=== PATIENT | female | born 1955 | race Caucasian/White ===

== ENCOUNTER 2017-01-19 22:05 | Inpatient (IN) | payer MEDICARE, MEDICAID ==
--- NOTE | 2017-01-19 22:28 | EDM.PDOC ---
ED HPI GENERAL MEDICAL PROBLEM - General Chief Complaint: Gastrointestinal Problem Stated Complaint: [facility] Time Seen by Provider: 01/19/17 22:13 Source of Information: Reports: Patient, EMS History Limitations: Reports: Other (Patient is schizophrenic and is a poor historian) - History of Present Illness INITIAL COMMENTS - FREE TEXT/NARRATIVE: This is a 61-year-old female. Apparently the family called the ambulance services evening because the patient vomited up some brown stuff. When the ambulance crew arrived there was some dried brown stuff but they did not bring it to the ER for testing. The patient states she vomited up some brown stuff but we cannot be certain whether it is blood or not. Patient states her stomach has been bothering her today but she generally says it's her entire stomach not necessary in the upper part of her abdomen. She cannot really add to the history. She denies being short of breath and denies coughing but really can't give any other history at this time. Abdominal Pain Score (Numeric/FACES): 8 - Related Data Allergies Allergy/AdvReac Type Severity Reaction Status Date / Time haloperidol AdvReac Seizures Verified 01/19/17 22:12 trifluoperazine HCl AdvReac Seizures Verified 01/19/17 22:12 [From Stelazine] Home Meds: Home Meds Atenolol 25 mg PO DAILY 08/15/14 [History] Ibuprofen 600 mg PO BEDTIME PRN 08/15/14 [History] LORazepam 0.5 mg PO TID 08/15/14 [History] Levothyroxine [Synthroid] 88 mcg PO DAILY 08/15/14 [History] SUMAtriptan [Imitrex] 50 mg PO ONCALL PRN 08/15/14 [History] cloZAPine [Clozapine] 350 mg PO BEDTIME 08/15/14 [History] cloZAPine [Clozaril] 200 mg PO BID 08/15/14 [History] Simvastatin [Zocor] 10 mg PO DAILY 04/13/16 [History] amLODIPine Besylate [Norvasc] 2.5 mg PO DAILY 04/13/16 [History] Past Medical History HEENT History: Reports: Other (See Below) Other HEENT History: impacted cerumen Cardiovascular History: Reports: Hypertension Genitourinary History: Reports: Other (See Below) Other Genitourinary History: UTI Psychiatric History: Reports: Anxiety, Schizophrenia Other Psychiatric History: mother states patient hears voices and talks to them at times Dermatologic History: Reports: Psoriasis - Past Surgical History HEENT Surgical History: Reports: None Cardiovascular Surgical History: Reports: None Social & Family History - Family History Family Medical History: Noncontributory - Tobacco Use Smoking Status *Q: Never Smoker Used Tobacco, but Quit: Yes Month Tobacco Last Used: 7 years ago Second Hand Smoke Exposure: No - Caffeine Use Caffeine Use: Reports: Soda - Alcohol Use Days Per Week of Alcohol Use: 0 - Recreational Drug Use Recreational Drug Use: No ED ROS GENERAL - Review of Systems Review Of Systems: See Below Constitutional: Reports: Weakness, Other (This is the best that I can get on her review of systems due to her schizophrenia). Denies: Fever HEENT: Reports: No Symptoms Respiratory: Denies: Shortness of Breath, Cough Cardiovascular: Denies: Chest Pain GI/Abdominal: Reports: Abdominal Pain : Reports: Other (Unknown she denies urinary symptoms) Musculoskeletal: Reports: Other (Patient essentially denies any extremity problems but this is still unknown) Skin: Reports: Other (Unknown if there is any changes or concerns) Neurological: Reports: Confusion Psychiatric: Reports: Other (Patient is schizophrenic) Hematologic/Lymphatic: Reports: Other (Unknown) ED EXAM, GI/ABD - Physical Exam Exam: See Below Exam Limited By: Altered Mental Status General Appearance: Alert, WD/WN, No Apparent Distress, Other (Patient appears to be unkempt) Eyes: Bilateral: Normal Appearance Ears: Normal External Exam Nose: Normal Inspection Throat/Mouth: Normal Voice, No Airway Compromise, Other (Teeth have advanced dental caries, her lips do appear to be pale but I'm not certain if that is a change) Head: Normocephalic Neck: Supple Respiratory/Chest: No Respiratory Distress, Lungs Clear, Normal Breath Sounds Cardiovascular: Regular Rate, Rhythm, No Murmur GI/Abdominal Exam: Soft, Other (The abdomen appears to be distended, the patient complains of soreness all over her abdomen not necessarily just in the upper abdomen but she is soft though distended there is no guarding and there is no rebound or rigidity noted and she does have bowel sounds but they are very quiet and more high pitched) Back Exam: Other (Not able to assess her back at this time) Extremities: Normal Inspection, No Pedal Edema, Other (She will move her extremities for me) Neurological: Alert, Other (She has a decreased cognition but she is able to answer simple questions, she is oriented to place only) Psychiatric: Flat Affect Skin Exam: Warm, Dry Course - Vital Signs Last Recorded V/S: Last Vital Signs Temp 98.1 F 01/19/17 22:08 Pulse 91 01/19/17 22:08 Resp 18 01/19/17 22:08 BP 94/56 L 01/19/17 22:08 Pulse Ox 88 L 01/19/17 22:08 - Orders/Labs/Meds Orders: Active Orders 24 hr Category Date Time Status Abdomen 1V Flat [CR] Stat Exams 01/19/17 23:11 Taken Abdomen Pelvis wo Cont [CT] Stat Exams 01/19/17 23:57 Taken Sodium Chloride 0.9% [Normal Saline] 1,000 ml Med 01/19/17 22:45 Active IV ASDIRECTED NG [Nasogastric Orogastric Tube Insertion] [OM.PC] Oth 01/20/17 01:57 Ordered Routine Medication Orders Sodium Chloride (Normal Saline) 1,000 mls @ 500 mls/hr IV ASDIRECTED NAEL Last Admin: 01/19/17 22:38 Dose: 500 mls/hr Labs: Laboratory Tests 01/19/17 01/19/17 01/19/17 Range/Units 22:45 22:45 23:10 WBC 10.00 (3.98-10.04) K/mm3 RBC 3.27 L (3.98-5.22) M/mm3 Hgb 9.2 L (11.2-15.7) gm/L Hct 27.2 L (34.1-44.9) % MCV 83.2 (79.4-94.8) fl MCH 28.1 (25.6-32.2) pg MCHC 33.8 (32.2-35.5) g/dl RDW Std Deviation 43.4 (36.4-46.3) fL Plt Count 350 (182-369) K/mm3 MPV 8.6 L (9.4-12.3) fl Neut % (Auto) 73.4 H (34.0-71.1) % Lymph % (Auto) 9.2 L (19.3-51.7) % [place] % (Auto) 16.7 H (4.7-12.5) % Eos % (Auto) 0.2 L (0.7-5.8) Baso % (Auto) 0.1 (0.1-1.2) % Neut # (Auto) 7.34 H (1.56-6.13) K/mm3 Lymph # (Auto) 0.92 L (1.18-3.74) K/mm3 [place] # (Auto) 1.67 H (0.24-0.36) K/mm3 Eos # (Auto) 0.02 L (0.04-0.36) K/mm3 Baso # (Auto) 0.01 (0.01-0.08) K/mm3 Manual Slide Review Abnormal smear Sodium 129 L (136-145) mEq/L Potassium 3.7 (3.5-5.1) mEq/L Chloride 95 L (98-107) mEq/L Carbon Dioxide 25 (21-32) mEq/L Anion Gap 12.7 (5-15) BUN 55 H (7-18) mg/dL Creatinine 2.2 H (0.55-1.02) mg/dL Est Cr Clr Drug Dosing 24.16 mL/min Estimated GFR (MDRD) 23 (>60) mL/min BUN/Creatinine Ratio 25.0 H (14-18) Glucose 121 H (80-115) mg/dL Calcium 7.8 L (8.5-10.1) mg/dL Total Bilirubin 0.3 (0.2-1.0) mg/dL AST 8 L (15-37) U/L ALT 8 L (14-59) U/L Alkaline Phosphatase 50 (46-116) U/L Total Protein 5.0 L (6.4-8.2) g/dl Albumin 2.2 L (3.4-5.0) g/dl Globulin 2.8 gm/dL Albumin/Globulin Ratio 0.8 L (1-2) Urine Color Yellow (Yellow) Urine Appearance Clear (Clear) Urine pH 5.0 (5.0-8.0) Ur Specific [place] 1.025 (1.005-1.030) Urine Protein 1+ H (Negative) Urine Glucose (UA) Negative (Negative) Urine Ketones Negative (Negative) Urine Occult Blood Negative (Negative) Urine Nitrite Negative (Negative) Urine Bilirubin Negative (Negative) Urine Urobilinogen 0.2 (0.2-1.0) Ur Leukocyte Esterase Negative (Negative) Urine RBC Not seen (0-5) /hpf Urine WBC 0-5 (0-5) /hpf Ur Epithelial Cells 0-5 (0-5) /hpf Urine Bacteria Few (FEW) /hpf Hyaline Casts 0-5 (0-5) /lpf Urine Mucus Not seen (FEW) /hpf Meds: Medications Generic Name Dose Route Start Last Admin Trade Name Freq PRN Reason Stop Dose Admin Sodium Chloride 1,000 mls @ 500 mls/hr 01/19/17 22:45 01/19/17 22:38 Normal Saline IV 500 mls/hr ASDIRECTED NAEL Administration Discontinued Medications Generic Name Dose Route Start Last Admin Trade Name Freq PRN Reason Stop Dose Admin Diatrizoate Meglum/Diatrizoate Sod 90 ml 01/20/17 01:05 01/20/17 01:29 Gastrografin 37% PO 01/20/17 01:06 90 ml ONETIME ONE Administration Lidocaine HCl Confirm 01/20/17 02:02 Xylocaine 2% Jelly Administered 01/20/17 02:03 Dose 10 ml .ROUTE .STK-MED ONE Ondansetron HCl 4 mg 01/20/17 00:04 01/20/17 00:13 Zofran IVPUSH 01/20/17 00:05 4 mg ONETIME ONE Administration Pantoprazole Sodium 40 mg 01/19/17 22:29 01/19/17 22:38 Protonix Iv IVPUSH 01/19/17 22:30 40 mg ONETIME ONE Administration - Radiology Interpretation Free Text/Narrative:: KUB shows large dilated small bowel loops - Re-Assessments/Exams Free Text/Narrative Re-Assessment/Exam: 01/19/17 22:28 It should be noted that Hemoccult of the stool was positive for blood. 01/20/17 00:57 Her KUB shows dilated bowel and it appears to be mostly small bowel. She is known to have a history of colitis as well as small bowel obstruction. 01/20/17 02:11 CT scan with contrast showed a high grade small bowel obstruction. I spoke to the family regarding the findings I also spoke to Dr. Barrera who is willing to follow this patient along and Dr. Cummins who was willing to admit the patient. It should be noted that back in March 2016 she had a very similar presentation with a small bowel obstruction that resolved with NG tube decompression. 01/20/17 02:20 I confirmed with the family that the patient is a full code. I wrote bridge orders for Dr. Cummins. Departure - Departure Time of Disposition: 02:12 Disposition: Admitted As Inpatient 66 Condition: Fair Clinical Impression: Small bowel obstruction due to adhesions, Upper GI bleed, Anemia of chronic illness, Renal insufficiency, Dehydration Hypotension Qualifiers: Hypotension type: unspecified hypotension type Qualified Code(s): I95.9 - Hypotension, unspecified Schizophrenia Qualifiers: Schizophrenia type: unspecified Qualified Code(s): F20.9 - Schizophrenia, unspecified - Discharge Information Additional Instructions: I spoke to Dr. Cummins who is willing to admit the patient for further evaluation and treatment, I spoke to Dr. Barrera who is willing to follow the patient along with Dr. Cummins. ED Communication - ED Communication Date/Time Date: 01/20/17 Time Called: 02:14 - Discussed Case With (1) Discussed Case With (1): Admitting Provider Person/s Notified (1): Nadia Cummins (Will admit for evaluation treatment) - My Orders Last 24 Hours: My Active Orders 01/19/17 22:45 Sodium Chloride 0.9% [Normal Saline] 1,000 ml IV ASDIRECTED 01/19/17 23:11 Abdomen 1V Flat [CR] Stat 01/19/17 23:57 Abdomen Pelvis wo Cont [CT] Stat 01/20/17 01:57 NG [Nasogastric Orogastric Tube Insertion] [OM.PC] Routine - Assessment/Plan Last 24 Hours: My Active Orders 01/19/17 22:45 Sodium Chloride 0.9% [Normal Saline] 1,000 ml IV ASDIRECTED 01/19/17 23:11 Abdomen 1V Flat [CR] Stat 01/19/17 23:57 Abdomen Pelvis wo Cont [CT] Stat 01/20/17 01:57 NG [Nasogastric Orogastric Tube Insertion] [OM.PC] Routine
[2017-01-19] MEDS ORDERED: Pantoprazole 40 MG Vial IVPUSH ONE (22:29)
[2017-01-19] MEDS ORDERED: Sodium Chloride 0.9% 1,000 ML IV SCH (22:45)
[2017-01-20] MEDS ORDERED: Ondansetron 4 MG/2 ML SDV IVPUSH ONE (00:04)
[2017-01-20] MEDS ORDERED: Diatrizoate Meglumine/Diatrizoate Sodium 37% 120 ML Bottle PO ONE (01:05)
[2017-01-20] MEDS ORDERED: Lidocaine 2% Jelly 10 ML Urojet ONE (02:02)
[2017-01-20] MEDS ORDERED: Lidocaine 2% Jelly 10 ML Urojet MUCMEM ONE (02:20)
[2017-01-20] MEDS ORDERED: Sodium Chloride 0.9% 1,000 ML IV SCH (03:15)
[2017-01-20] MEDS ORDERED: Pantoprazole 40 MG Vial IVPUSH SCH (06:00)
--- NOTE | 2017-01-20 09:13 | PCM.HP ---
H&P History of Present Illness - General Date of Service: 01/20/17 Admit Problem/Dx: Admission Diagnosis/Problem Admission Diagnosis/Problem Small bowel obstruction Source of Information: Family, Provider History Limitations: Reports: No Limitations - History of Present Illness Initial Comments - Free Text/Narative: 61 year old female admitted with SBO, reported that she had been nauseated and vomited brown material. Denies fever or chills; no reported change in bowel habits, appetite or habits. An NGT was placed in the ED. She additionally complained of abdominal pain in the ED. Currently she denies pain but does admit to abdominal distension. She will be admitted to [facility], a genral surgery consult will be requested. The ED provider briefly discussed the case with general surgery JOB ORDER CLERK. Onset of Symptoms: Reports: Unknown/Unsure Duration of Symptoms: Reports: Hour(s):, Getting Worse Location: Reports: Abdomen Severity: Moderate Improves with: Reports: Other (NGT) Worsens with: Reports: Eating Associated Symptoms: Reports: Malaise, Nausea/Vomiting, Weakness Abdominal Pain Score (Numeric/FACES): 8 - Related Data Allergies/Adverse Reactions: Allergies Allergy/AdvReac Type Severity Reaction Status Date / Time haloperidol AdvReac Seizures Verified 01/20/17 10:43 trifluoperazine HCl AdvReac Seizures Verified 01/20/17 10:43 [From Stelazine] Home Medications: Home Meds Atenolol 25 mg PO DAILY 08/15/14 [History] Ibuprofen 600 mg PO BEDTIME PRN 08/15/14 [History] LORazepam 0.5 mg PO TID PRN 08/15/14 [History] Levothyroxine [Synthroid] 88 mcg PO DAILY 08/15/14 [History] SUMAtriptan [Imitrex] 50 mg PO ONCALL PRN 08/15/14 [History] cloZAPine [Clozapine] 350 mg PO BEDTIME 08/15/14 [History] cloZAPine [Clozaril] 200 mg PO BID 08/15/14 [History] Simvastatin [Zocor] 10 mg PO DAILY 04/13/16 [History] amLODIPine Besylate [Norvasc] 2.5 mg PO DAILY 04/13/16 [History] Past Medical History HEENT History: Reports: Other (See Below) Other HEENT History: impacted cerumen Cardiovascular History: Reports: Hypertension Gastrointestinal History: Reports: Bowel Obstruction, Chronic Constipation, Chronic Diarrhea, GI Bleed Genitourinary History: Reports: Other (See Below) Other Genitourinary History: UTI Psychiatric History: Reports: Anxiety, Schizophrenia Other Psychiatric History: Family states patient hears voices and talks to them at times Endocrine/Metabolic History: Reports: Hypothyroidism Hematologic History: Reports: Anemia Dermatologic History: Reports: Psoriasis - Past Surgical History HEENT Surgical History: Reports: None Cardiovascular Surgical History: Reports: None GI Surgical History: Reports: None Female Surgical History: Reports: None Endocrine Surgical History: Reports: None Social & Family History - Family History Family Medical History: Noncontributory - Tobacco Use Smoking Status *Q: Unknown Ever Smoked Used Tobacco, but Quit: Yes Month Tobacco Last Used: 7 years ago Second Hand Smoke Exposure: No - Caffeine Use Caffeine Use: Reports: Soda - Alcohol Use Days Per Week of Alcohol Use: 0 - Recreational Drug Use Recreational Drug Use: No H&P Review of Systems - Review of Systems: Review Of Systems: See Below General: Reports: Weakness, Decreased Appetite HEENT: Reports: No Symptoms Pulmonary: Reports: No Symptoms Cardiovascular: Reports: No Symptoms Gastrointestinal: Reports: Abdominal Pain, Flatus Genitourinary: Reports: No Symptoms Musculoskeletal: Reports: No Symptoms Skin: Reports: No Symptoms Psychiatric: Reports: No Symptoms Neurological: Reports: No Symptoms Hematologic/Lymphatic: Reports: No Symptoms Immunologic: Reports: No Symptoms Exam - Exam Exam: See Below - Vital Signs Vital Signs: Last Vital Signs Temp 36.7 C 01/20/17 03:06 Pulse 89 01/20/17 03:06 Resp 16 01/20/17 03:06 BP 90/44 L 01/20/17 03:54 Pulse Ox 95 01/20/17 03:06 Weight: 66.996 kg - Exam Quality Assessment: DVT Prophylaxis General: Alert, Oriented, Cooperative HEENT: Conjunctiva Clear, Nares Patent, Normal Nasal Septum, Pupils Equal, Pupils Reactive Neck: Supple, Trachea Midline Lungs: Normal Respiratory Effort Cardiovascular: Regular Rate, Regular Rhythm GI/Abdominal Exam: Soft, Distended, Guarding (no), Rigid (no), Rebound (no), Tender, Abnormal Bowel Sounds (Female) Exam: Deferred Rectal (Female) Exam: Deferred Back Exam: Normal Inspection Extremities: Normal Inspection Skin: Warm Neurological: Cranial Nerves Intact Neuro Extensive - Mental Status: Alert Neuro Extensive - Motor, Sensory, Reflexes: CN II-XII Intact Psychiatric: Alert - Patient Data Result Diagrams: 01/19/17 22:45 01/19/17 22:45 *Q Meaningful Use (ADM) - VTE *Q VTE Criteria *Q: - Stroke *Q Stroke Criteria *Q: - AMI *Q AMI Criteria *Q: - Problem List (1) Dehydration SNOMED Code(s): 99283144 ICD Code: E86.0 - DEHYDRATION Status: Acute Current Visit: Yes (2) Schizophrenia SNOMED Code(s): 40070365 ICD Code: F20.9 - SCHIZOPHRENIA, UNSPECIFIED Status: Acute Current Visit : Yes Qualifiers: Schizophrenia type: unspecified Qualified Code(s): F20.9 - Schizophrenia, unspecified (3) Small bowel obstruction due to adhesions SNOMED Code(s): 126878076 ICD Code: K56.5 - INTESTINAL ADHESIONS W OBST (POSTPROCEDURAL) (POSTINFECTION ) Status: Acute Current Visit: Yes (4) Pneumonia SNOMED Code(s): 984376545 ICD Code: J18.9 - PNEUMONIA, UNSPECIFIED ORGANISM Status: Acute Current Visit: Yes Problem List Initiated/Reviewed/Updated: Yes Orders Last 24hrs: Active Orders 24 hr Category Date Time Status Admission Status [Patient Status] [ADT] Routine ADT 01/20/17 02:43 Active Activity as Tolerated [RC] .Routine Care 01/20/17 03:18 Active Insert Urinary Catheter [OM.PC] ONETIME Care 01/19/17 23:00 Ordered Intake and Output Strict [RC] 04,16 Care 01/20/17 03:12 Active NG [Gastrointestinal Tube Mgmt] [RC] ASDIRECTED Care 01/20/17 03:15 Active NPO Now [Nothing per Oral Now Diet] [DIET] Diet 01/20/17 Breakfast Active Pantoprazole [ProTONIX IV] Med 01/20/17 06:00 Active 40 mg IVPUSH ACBRK Sodium Chloride 0.9% [Normal Saline] 1,000 ml Med 01/20/17 03:15 Active IV ASDIRECTED Code Status [Resuscitation Status] Routine Resus Stat 01/20/17 03:14 Ordered Medication Orders Sodium Chloride (Normal Saline) 1,000 mls @ 125 mls/hr IV ASDIRECTED NAEL Last Admin: 01/20/17 03:52 Dose: 125 mls/hr Pantoprazole Sodium (Protonix Iv) 40 mg IVPUSH ACBRK [facility] Last Admin: 01/20/17 06:42 Dose: 40 mg Assessment/Plan Comment:: Impression: SBO, previous episode March 2016 Hemoccult positve stool Possible past medical history of Colitis Query Aspiration PNA History of Schizophrenia Plan: IVF Electrolyte replacement Continue NGT. Clamp as needed for anti-psychotic meds Home meds as appropriate] Daily Labs Analgesics Empiric ATB for aspiration PNA/Colitis DVT/GI prophylaxis
[2017-01-20] MEDS ORDERED: Morphine 2 MG/ML Syringe IVPUSH PRN (10:35)
[2017-01-20] MEDS ORDERED: Ondansetron 4 MG/2 ML SDV IVPUSH PRN (10:42)
[2017-01-20] MEDS ORDERED: Sodium Chloride 0.9% 1,000 ML IV ONE (10:44)
[2017-01-20] MEDS: Sodium Chloride 0.9% 1,000 ML IV SCH ×2 (12:53→20:45)
[2017-01-20] MEDS ORDERED: LORazepam 2 MG/ML MDV IVPUSH SCH (13:45)
[2017-01-20] MEDS ORDERED: LORazepam 2 MG/ML MDV IVPUSH PRN (14:27)
[2017-01-20] MEDS ORDERED: cloZAPine 100 MG Tab PO ONE (14:45)
[2017-01-20] MEDS ORDERED: cloZAPine 100 MG Tab PO SCH (15:00)
[2017-01-20] MEDS: Pantoprazole 40 MG Vial IVPUSH SCH (18:00)
[2017-01-20] MEDS ORDERED: Piperacillin/Tazobactam 4.5 GM in Sodium Chloride 0.9% 100 ML IV ONE (20:00)
[2017-01-20] MEDS: cloZAPine 100 MG Tab PO SCH (20:35)
[2017-01-20] MEDS: metroNIDAZOLE/Normal Saline 500 MG in Premix Bag 1 BAG IV SCH (20:35)
[2017-01-21] MEDS: Sodium Chloride 0.9% 1,000 ML IV SCH ×2 (03:30→10:09)
[2017-01-21] MEDS: metroNIDAZOLE/Normal Saline 500 MG in Premix Bag 1 BAG IV SCH ×3 (04:30→20:13)
[2017-01-21] MEDS: Piperacillin/Tazobactam 4.5 GM in Sodium Chloride 0.9% 100 ML IV SCH ×3 (04:31→20:13)
[2017-01-21] MEDS: Pantoprazole 40 MG Vial IVPUSH SCH ×2 (06:11→20:15)
[2017-01-21] MEDS: cloZAPine 100 MG Tab PO SCH ×3 (08:35→20:14)
[2017-01-21] MEDS ORDERED: Non-Formulary Medication 1 Each PO SCH (09:00)
[2017-01-21] MEDS ORDERED: Enoxaparin 40 MG/0.4 ML Syringe SUBCUT SCH (09:00)
[2017-01-21] MEDS ORDERED: Enoxaparin 30 MG/0.3 ML Syringe SUBCUT SCH (09:00)
--- NOTE | 2017-01-21 09:12 | PCM.CONS ---
H&P History of Present Illness - General Date of Service: 01/21/17 Admit Problem/Dx: Admission Diagnosis/Problem Admission Diagnosis/Problem Small bowel obstruction Source of Information: Provider - History of Present Illness Initial Comments - Free Text/Narative: 61-year-old female was admitted yesterday morning because of abdominal pain nausea emesis and distention. She was brought to the emergency room for evaluation. In the emergency room she was found to be distended but had a normal white count and a normal temperature. Plain films of her abdomen were performed and remarkable for a high-grade small bowel ileus. A CT scan with contrast was obtained and confirmed the ileus. Since admission she was placed on bowel rest with IV hydration and given antibiotics. This morning she told me she had a bowel movement and passed some gas yesterday. She has not had one this morning. Also this morning she notes that her stomach hurts. Abdominal Pain Score (Numeric/FACES): 8 - Related Data Allergies/Adverse Reactions: Allergies Allergy/AdvReac Type Severity Reaction Status Date / Time haloperidol AdvReac Seizures Verified 01/20/17 10:43 trifluoperazine HCl AdvReac Seizures Verified 01/20/17 10:43 [From Stelazine] Home Medications: Home Meds Atenolol 25 mg PO DAILY 08/15/14 [History] Ibuprofen 600 mg PO BEDTIME PRN 08/15/14 [History] LORazepam 0.5 mg PO TID PRN 08/15/14 [History] Levothyroxine [Synthroid] 88 mcg PO DAILY 08/15/14 [History] SUMAtriptan [Imitrex] 50 mg PO ONCALL PRN 08/15/14 [History] cloZAPine [Clozapine] 350 mg PO BEDTIME 08/15/14 [History] cloZAPine [Clozaril] 200 mg PO BID 08/15/14 [History] Simvastatin [Zocor] 10 mg PO DAILY 04/13/16 [History] amLODIPine Besylate [Norvasc] 2.5 mg PO DAILY 04/13/16 [History] Past Medical History HEENT History: Reports: Other (See Below) Other HEENT History: impacted cerumen Cardiovascular History: Reports: Hypertension Gastrointestinal History: Reports: Bowel Obstruction, Chronic Constipation, Chronic Diarrhea, GI Bleed Genitourinary History: Reports: Other (See Below) Other Genitourinary History: UTI Psychiatric History: Reports: Anxiety, Schizophrenia Other Psychiatric History: Family states patient hears voices and talks to them at times Endocrine/Metabolic History: Reports: Hypothyroidism Hematologic History: Reports: Anemia Dermatologic History: Reports: Psoriasis - Past Surgical History HEENT Surgical History: Reports: None Cardiovascular Surgical History: Reports: None GI Surgical History: Reports: None Female Surgical History: Reports: None Endocrine Surgical History: Reports: None Social & Family History - Family History Family Medical History: Noncontributory - Tobacco Use Smoking Status *Q: Unknown Ever Smoked Used Tobacco, but Quit: Yes Month Tobacco Last Used: 7 years ago Second Hand Smoke Exposure: No - Caffeine Use Caffeine Use: Reports: Soda - Alcohol Use Days Per Week of Alcohol Use: 0 - Recreational Drug Use Recreational Drug Use: No H&P Review of Systems - Review of Systems: Review Of Systems: See Below Gastrointestinal: Reports: Abdominal Pain Exam - Exam Exam: See Below - Vital Signs Vital Signs: Last Vital Signs Temp 36.6 C 01/21/17 07:42 Pulse 94 01/21/17 07:42 Resp 16 01/21/17 07:42 BP 109/56 L 01/21/17 07:42 Pulse Ox 93 L 01/21/17 07:42 Weight: 68.946 kg - Exam General: Alert, Oriented, Cooperative HEENT: EOMI, Hearing Intact Neck: Supple, Trachea Midline Lungs: Normal Respiratory Effort Cardiovascular: Regular Rate, Regular Rhythm GI/Abdominal Exam: Non-Tender, Distended (Moderate certainly not tense), Other ( No focal areas of tenderness. Right paramedian abdominal incision without herniation.) Rectal (Female) Exam: Deferred Skin: Warm, Dry, Rash (Chronic dermatitis of the abdominal wall), Incision ( Abdominal is well-healed as mentioned above) - Patient Data Lab Results Last 24 hrs: Laboratory Results - last 24 hr 01/21/17 01/21/17 01/21/17 Range/Units 06:15 06:15 06:15 WBC 10.48 H (3.98-10.04) K/mm3 RBC 3.06 L (3.98-5.22) M/mm3 Hgb 8.6 L (11.2-15.7) gm/L Hct 26.4 L (34.1-44.9) % MCV 86.3 (79.4-94.8) fl MCH 28.1 (25.6-32.2) pg MCHC 32.6 (32.2-35.5) g/dl RDW Std Deviation 47.2 H (36.4-46.3) fL Plt Count 340 (182-369) K/mm3 MPV 8.8 L (9.4-12.3) fl Neut % (Auto) 68.6 (34.0-71.1) % Lymph % (Auto) 14.7 L (19.3-51.7) % [place] % (Auto) 14.5 H (4.7-12.5) % Eos % (Auto) 1.2 (0.7-5.8) Baso % (Auto) 0.3 (0.1-1.2) % Neut # (Auto) 7.19 H (1.56-6.13) K/mm3 Lymph # (Auto) 1.54 (1.18-3.74) K/mm3 [place] # (Auto) 1.52 H (0.24-0.36) K/mm3 Eos # (Auto) 0.13 (0.04-0.36) K/mm3 Baso # (Auto) 0.03 (0.01-0.08) K/mm3 Manual Slide Review Abnormal smear Sodium 137 (136-145) mEq/L Potassium 3.4 L (3.5-5.1) mEq/L Chloride 106 (98-107) mEq/L Carbon Dioxide 21 (21-32) mEq/L Anion Gap 13.4 (5-15) BUN 25 H (7-18) mg/dL Creatinine 1.0 (0.55-1.02) mg/dL Est Cr Clr Drug Dosing 53.16 mL/min Estimated GFR (MDRD) 56 (>60) mL/min BUN/Creatinine Ratio 25.0 H (14-18) Glucose 76 L (80-115) mg/dL Lactic Acid 0.7 (0.4-2.0) mmol/L Calcium 7.6 L (8.5-10.1) mg/dL Magnesium 1.7 L (1.8-2.4) mg/dl C-Reactive Protein 9.0 H* (<1.0) mg/dL Result Diagrams: 01/21/17 06:15 01/21/17 06:15 Consult PN Assessment/Plan Procedures: Procedures ASSAY OF AMYLASE (04/13/16) ASSAY OF FREE THYROXINE (04/13/16) ASSAY OF LACTIC ACID (04/13/16) ASSAY OF LIPASE (04/13/16) ASSAY OF MAGNESIUM (04/13/16) ASSAY OF PHOSPHORUS (04/13/16) ASSAY THYROID STIM HORMONE (04/13/16) C DIFF AMPLIFIED PROBE (04/13/16) C-REACTIVE PROTEIN (04/13/16) CHEST X-RAY 1 VIEW FRONTAL (04/13/16) COMPLETE CBC W/AUTO DIFF WBC (04/13/16) COMPREHEN METABOLIC PANEL (04/13/16) CT ABD & PELV W/CONTRAST (04/13/16) DRUG ASSAY CLOZAPINE (04/13/16) EMERGENCY DEPT VISIT (04/13/16) EMERGENCY DEPT VISIT (08/15/14) EVALUATE SWALLOWING FUNCTION (11/26/13) HPYLORI STOOL IA (04/13/16) HYDRATE IV INFUSION ADD-ON (04/13/16) INSERT PICC CATH (04/13/16) LACTATE (LD) (LDH) ENZYME (04/13/16) METABOLIC PANEL TOTAL CA (04/13/16) OCCULT BLD FECES 1-3 TESTS (04/13/16) OT EVALUATION (04/13/16) PT EVALUATION (04/13/16) RBC SED RATE AUTOMATED (04/13/16) ROUTINE VENIPUNCTURE (04/13/16) STOOL CULTR AEROBIC BACT EA (04/13/16) THER/PROPH/DIAG INJ IV PUSH (04/13/16) THER/PROPH/DIAG IV INF INIT (08/15/14) THERAPEUTIC ACTIVITIES (04/13/16) TX/PRO/DX INJ NEW DRUG ADDON (08/15/14) URINALYSIS AUTO W/SCOPE (04/13/16) URINE CULTURE/COLONY COUNT (04/13/16) VANOMYCIN DNA AMP PROBE (04/13/16) VITAMIN D 25 HYDROXY (04/13/16) X-RAY EXAM OF ABDOMEN (04/13/16) X-RAY EXAM OF ABDOMEN (04/13/16) X-RAY EXAM SERIES ABDOMEN (04/13/16) Problem List Initiated/Reviewed/Updated: Yes My Orders Last 24 Hours: imp: Recurrent small bowel obstruction. By report this would be her second admission for small bowel obstruction. She responded to medical management after her first admission some time ago. Hopefully she responds this time. She is hemodynamically stable and nontoxic. She has a normal temperature and normal white count with a nonfocal abdominal exam. Her NG output is about 1.5 L over 24 hours. It is bilious in quality. Her magnesium is 1.7. plan: Agree with medical management. Will follow.
[2017-01-21] MEDS ORDERED: Magnesium Sulfate/Water 2 GM in Premix Bag 1 BAG IV ONE (09:15)
--- NOTE | 2017-01-21 10:54 | PCM.PN ---
- General Info Date of Service: 01/21/17 Functional Status: Reports: Pain Controlled - Review of Systems General: Reports: No Symptoms HEENT: Reports: No Symptoms Pulmonary: Reports: No Symptoms Cardiovascular: Reports: No Symptoms Gastrointestinal: Reports: No Symptoms Genitourinary: Reports: No Symptoms Musculoskeletal: Reports: No Symptoms Skin: Reports: No Symptoms Neurological: Reports: No Symptoms Psychiatric: Reports: No Symptoms - Patient Data Vitals - Most Recent: Last Vital Signs Temp 36.6 C 01/21/17 07:42 Pulse 94 01/21/17 07:42 Resp 16 01/21/17 07:42 BP 109/56 L 01/21/17 07:42 Pulse Ox 93 L 01/21/17 07:42 Weight - Most Recent: 68.946 kg I&O - Last 24 Hours: Intake & Output 01/20/17 01/21/17 01/21/17 22:59 06:59 14:59 Intake Total 2579 Output Total 250 Balance 2329 Lab Results Last 24 Hours: Laboratory Results - last 24 hr 01/21/17 01/21/17 01/21/17 Range/Units 06:15 06:15 06:15 WBC 10.48 H (3.98-10.04) K/mm3 RBC 3.06 L (3.98-5.22) M/mm3 Hgb 8.6 L (11.2-15.7) gm/L Hct 26.4 L (34.1-44.9) % MCV 86.3 (79.4-94.8) fl MCH 28.1 (25.6-32.2) pg MCHC 32.6 (32.2-35.5) g/dl RDW Std Deviation 47.2 H (36.4-46.3) fL Plt Count 340 (182-369) K/mm3 MPV 8.8 L (9.4-12.3) fl Neut % (Auto) 68.6 (34.0-71.1) % Lymph % (Auto) 14.7 L (19.3-51.7) % [place] % (Auto) 14.5 H (4.7-12.5) % Eos % (Auto) 1.2 (0.7-5.8) Baso % (Auto) 0.3 (0.1-1.2) % Neut # (Auto) 7.19 H (1.56-6.13) K/mm3 Lymph # (Auto) 1.54 (1.18-3.74) K/mm3 [place] # (Auto) 1.52 H (0.24-0.36) K/mm3 Eos # (Auto) 0.13 (0.04-0.36) K/mm3 Baso # (Auto) 0.03 (0.01-0.08) K/mm3 Manual Slide Review Abnormal smear Sodium 137 (136-145) mEq/L Potassium 3.4 L (3.5-5.1) mEq/L Chloride 106 (98-107) mEq/L Carbon Dioxide 21 (21-32) mEq/L Anion Gap 13.4 (5-15) BUN 25 H (7-18) mg/dL Creatinine 1.0 (0.55-1.02) mg/dL Est Cr Clr Drug Dosing 53.16 mL/min Estimated GFR (MDRD) 56 (>60) mL/min BUN/Creatinine Ratio 25.0 H (14-18) Glucose 76 L (80-115) mg/dL Lactic Acid 0.7 (0.4-2.0) mmol/L Calcium 7.6 L (8.5-10.1) mg/dL Magnesium 1.7 L (1.8-2.4) mg/dl C-Reactive Protein 9.0 H* (<1.0) mg/dL Med Orders - Current: Current Medications Clozapine (Clozapine) 350 mg PO BEDTIME [facility] Last Admin: 01/20/17 20:35 Dose: 350 mg Clozapine (Clozapine) 200 mg PO BID@0800,1400 [facility] Last Admin: 01/21/17 08:35 Dose: 200 mg Enoxaparin Sodium (Lovenox) 40 mg SUBCUT DAILY [facility] Sodium Chloride (Normal Saline) 1,000 mls @ 150 mls/hr IV ASDIRECTED [facility] Last Admin: 01/21/17 10:09 Dose: 150 mls/hr Piperacillin Sod/Tazobactam (Sod 4.5 gm/ Sodium Chloride) 100 mls @ 25 mls/hr IV Q8H [facility] Last Admin: 01/21/17 04:31 Dose: 25 mls/hr Metronidazole 500 mg/ Premix 100 mls @ 100 mls/hr IV Q8H [facility] Last Admin: 01/21/17 04:30 Dose: 100 mls/hr Magnesium Sulfate 2 gm/ Premix 50 mls @ 25 mls/hr IV ONETIME ONE Stop: 01/21/17 11:14 Last Admin: 01/21/17 10:09 Dose: 25 mls/hr Potassium Chloride/Sodium Chloride (1/2 Ns With 20 Meq Kcl) 1,000 mls @ 125 mls /hr IV ASDIRECTED [facility] Lorazepam (Ativan) 0.5 mg IVPUSH Q8H PRN PRN Reason: Anxiety Morphine Sulfate (Morphine) 0.5 mg IVPUSH Q4H PRN PRN Reason: Pain (moderate 4-6) Ondansetron HCl (Zofran) 4 mg IVPUSH Q8H PRN PRN Reason: Nausea/Vomiting Pantoprazole Sodium (Protonix Iv) 40 mg IVPUSH Q12H [facility] Last Admin: 01/21/17 06:11 Dose: 40 mg Discontinued Medications Clozapine (Clozapine) 200 mg PO BID [facility] Clozapine (Clozapine) 200 mg PO ONETIME ONE Stop: 01/20/17 14:46 Last Admin: 01/20/17 14:54 Dose: 200 mg Diatrizoate Meglum/Diatrizoate Sod (Gastrografin 37%) 90 ml PO ONETIME ONE Stop: 01/20/17 01:06 Last Admin: 01/20/17 01:29 Dose: 90 ml Enoxaparin Sodium (Lovenox) 30 mg SUBCUT DAILY [facility] Last Admin: 01/21/17 08:35 Dose: 30 mg Enoxaparin Sodium (Lovenox) 40 mg SUBCUT DAILY [facility] Last Admin: 01/21/17 10:11 Dose: Not Given Sodium Chloride (Normal Saline) 1,000 mls @ 500 mls/hr IV ASDIRECTED [facility] Last Admin: 01/19/17 22:38 Dose: 500 mls/hr Sodium Chloride (Normal Saline) 1,000 mls @ 125 mls/hr IV ASDIRECTED [facility] Last Admin: 01/20/17 03:52 Dose: 125 mls/hr Sodium Chloride (Normal Saline) 1,000 mls @ 999 mls/hr IV ONETIME ONE Stop: 01/20/17 11:44 Last Admin: 01/20/17 11:38 Dose: 999 mls/hr Piperacillin Sod/Tazobactam (Sod 4.5 gm/ Sodium Chloride) 100 mls @ 200 mls/hr IV ONETIME ONE Stop: 01/20/17 20:29 Last Admin: 01/20/17 20:35 Dose: 200 mls/hr Lidocaine HCl (Xylocaine 2% Jelly) Confirm Administered Dose 10 ml .ROUTE .STK- MED ONE Stop: 01/20/17 02:03 Last Admin: 01/20/17 02:22 Dose: Not Given Lidocaine HCl (Xylocaine 2% Jelly) 10 ml MUCMEM ONETIME ONE Stop: 01/20/17 02:21 Last Admin: 01/20/17 02:22 Dose: 10 ml Lorazepam (Ativan) 0.5 mg IVPUSH Q8H [facility] Last Admin: 01/20/17 14:19 Dose: Not Given Non-Formulary Medication (Nf Drug) 0 each PO DAILY [facility] Ondansetron HCl (Zofran) 4 mg IVPUSH ONETIME ONE Stop: 01/20/17 00:05 Last Admin: 01/20/17 00:13 Dose: 4 mg Pantoprazole Sodium (Protonix Iv) 40 mg IVPUSH ONETIME ONE Stop: 01/19/17 22:30 Last Admin: 01/19/17 22:38 Dose: 40 mg Pantoprazole Sodium (Protonix Iv) 40 mg IVPUSH ACBRK [facility] Last Admin: 01/20/17 06:42 Dose: 40 mg - Exam Quality Assessment: DVT Prophylaxis General: Alert, Oriented, No Acute Distress HEENT: Pupils Equal, Pupils Reactive, EOMI Neck: Supple, Trachea Midline Lungs: Normal Respiratory Effort Cardiovascular: Regular Rate, Regular Rhythm GI/Abdominal Exam: Normal Bowel Sounds, Soft, Non-Tender, No Distention (Female) Exam: Deferred Back Exam: Normal Inspection Extremities: Normal Inspection Skin: Warm Neurological: No New Focal Deficit Psy/Mental Status: Alert - Problem List & Annotations (1) Dehydration SNOMED Code(s): 86674412 Code(s): E86.0 - DEHYDRATION Status: Acute Current Visit: Yes (2) Schizophrenia SNOMED Code(s): 57449189 Code(s): F20.9 - SCHIZOPHRENIA, UNSPECIFIED Status: Acute Current Visit: Yes Qualifiers: Schizophrenia type: unspecified Qualified Code(s): F20.9 - Schizophrenia, unspecified (3) Small bowel obstruction due to adhesions SNOMED Code(s): 664521227 Code(s): K56.5 - INTESTINAL ADHESIONS W OBST (POSTPROCEDURAL) (POSTINFECTION ) Status: Acute Current Visit: Yes (4) Pneumonia SNOMED Code(s): 530821104 Code(s): J18.9 - PNEUMONIA, UNSPECIFIED ORGANISM Status: Acute Current Visit: Yes - Problem List Review Problem List Initiated/Reviewed/Updated: Yes - My Orders Last 24 Hours: My Active Orders 01/20/17 10:34 Vital Signs [RC] Q6HR 01/20/17 10:35 Morphine 0.5 mg IVPUSH Q4H PRN 01/20/17 10:36 Antiembolic Devices [RC] QSHIFT CIELO Hose [Antiembolic Hose] [OM.PC] Routine 01/20/17 10:39 Consult to Physician [CONS] Routine 01/20/17 10:40 Notify Provider Consults [RC] ASDIRECTED Consult to Care Management [Consult to Case Management] [CONS] Routine 01/20/17 10:42 Ondansetron [Zofran] 4 mg IVPUSH Q8H PRN 01/20/17 12:30 Sodium Chloride 0.9% [Normal Saline] 1,000 ml IV ASDIRECTED 01/20/17 14:27 LORazepam [Ativan] 0.5 mg IVPUSH Q8H PRN 01/20/17 17:32 OR PCXR-No Charge-PICC/Central [CR] Routine 01/20/17 19:00 Pantoprazole [ProTONIX IV] 40 mg IVPUSH Q12H 01/20/17 19:40 Antiembolic Devices [RC] PER UNIT ROUTINE CIELO Hose [Antiembolic Hose] [OM.PC] Routine 01/20/17 20:00 metroNIDAZOLE/Normal Saline [Flagyl 500 MG in NS 100 ML] 500 mg Premix Bag 1 bag IV Q8H 01/20/17 21:00 cloZAPine 350 mg PO BEDTIME 01/21/17 04:00 Piperacillin/Tazobactam [Zosyn] 4.5 gm Sodium Chloride 0.9% [Normal Saline] 100 ml IV Q8H 01/21/17 08:00 cloZAPine 200 mg PO BID@0800,1400 09/04/17 09:00 Consult to Occupational Therapy [OT Evaluation and Treatment] [CONS] Routine Consult to Physical Therapy [PT Evaluation and Treatment] [CONS] Routine 01/21/17 10:45 Sodium Chloride 0.45% with KCl [1/2 NS with 20 mEq KCl] 1,000 ml IV ASDIRECTED 01/22/17 05:00 BMP [BASIC METABOLIC PANEL,BMP] [CHEM] DAILY CBC WITH AUTO DIFF [HEME] DAILY CRP [C-REACTIVE PROTEIN] [CHEM] DAILY LACTIC ACID [CHEM] DAILY MG [MAGNESIUM] [CHEM] DAILY 01/22/17 09:00 Enoxaparin [Lovenox] 40 mg SUBCUT DAILY 01/23/17 05:00 BMP [BASIC METABOLIC PANEL,BMP] [CHEM] DAILY CBC WITH AUTO DIFF [HEME] DAILY CRP [C-REACTIVE PROTEIN] [CHEM] DAILY LACTIC ACID [CHEM] DAILY MG [MAGNESIUM] [CHEM] DAILY 01/23/17 08:00 CXR [Chest 2V] [CR] Routine 01/24/17 05:00 BMP [BASIC METABOLIC PANEL,BMP] [CHEM] DAILY CBC WITH AUTO DIFF [HEME] DAILY CRP [C-REACTIVE PROTEIN] [CHEM] DAILY LACTIC ACID [CHEM] DAILY MG [MAGNESIUM] [CHEM] DAILY - Plan Plan:: Impression: SBO, previous episode March 2016 Hemoccult positve stool Possible past medical history of Colitis Query Aspiration PNA History of Schizophrenia Plan: IVF Electrolyte replacement-->Mg, K; Na resolved Continue NGT. Clamp as needed for anti-psychotic meds Home meds as appropriate] Daily Labs Analgesics Continue empiric ATB for aspiration PNA/Colitis DVT/GI prophylaxis
[2017-01-21] MEDS: Sodium Chloride 0.45% with KCl 1,000 ML IV SCH (17:07)
--- NOTE | 2017-01-21 17:54 | CR ---
Chest: Portable view of the chest was obtained. Comparison: Previous chest x-ray of 04/18/16. Heart size appears slightly prominent but within normal limits for portable technique. Tortuous thoracic aorta is seen. Nasogastric tube is seen with tip being slightly past the gastroesophageal junction within the proximal stomach. Slight increased density within the right lung base is noted most likely due to mild atelectasis. Mild atelectasis is noted within the left lung base. Blunting of the costophrenic angles are seen compatible with minimal pleural effusions. Impression: 1. Tip of nasogastric tube slightly past the gastroesophageal junction within the proximal stomach. 2. Mild bibasilar atelectasis which is worse on the right side with small bilateral pleural effusions. Diagnostic code #3 Agree with preliminary report issued by [facility] ([facility] preliminary report dictated on 01/20/17, 7:15 PM Central Time)
--- NOTE | 2017-01-21 17:54 | CR ---
Abdomen: Supine view of the abdomen was obtained. Comparison: Previous abdominal x-ray of 04/18/16. Diffuse gaseous dilatation is seen of small bowel. Findings are highly suspicious for a distal small bowel obstruction. Calcifications are noted within the pelvis compatible with phleboliths. Bony structures show minimal degenerative spurring within the spine with osteopenia. Impression: 1. Diffuse gaseous dilatation of small bowel highly suspicious for distal small bowel obstruction. Diagnostic code #3
--- NOTE | 2017-01-21 17:54 | CT ---
CT abdomen and pelvis Technique: Multiple axial sections were obtained from above the dome of the diaphragm inferiorly through the pubic symphysis. Intravenous contrast not utilized. Oral contrast has been given. Comparison: Previous CT abdomen and pelvis exam of 04/15/16. Findings: Contrast is seen within the esophagus compatible with reflux. Wall thickening is seen within the distal esophagus. Stomach is dilated with contrast. Severe dilatation of small bowel loops are seen. Etiology for the small bowel dilatation is not seen and obstruction is most likely due to an adhesion. Small bilateral pleural effusions are seen which are likely incidental. Mild bibasilar atelectasis is noted. Cyst is identified within the dome of the left lobe of the liver measuring 2.3 cm. No additional abnormality is seen within the liver. Spleen appears within normal limits. Parapelvic cyst is noted within the right kidney. Cortical cyst is noted within the left kidney with several smaller low-density lesions being seen within both kidneys likely due to additional but smaller cysts. Largest cyst measures approximately 2.9 cm. Pancreas appears within normal limits. Aorta shows atherosclerotic change without aneurysmal dilatation. No retroperitoneal adenopathy is seen. No pelvic mass or adenopathy is seen. No free fluid or inflammatory change is seen. Bone window settings were reviewed showing slight degenerative change within the spine. Slight compression deformity of the superior endplate of T12 is seen which is old. Impression: 1. Severely dilated small bowel compatible with distal small bowel obstruction most likely from adhesions. 2. Liver cyst and incidental renal cysts. 3. Contrast within the distal esophagus compatible with reflux. Esophageal wall is thickened most likely from reflux esophagitis. 4. Other incidental findings which are nonacute. Diagnostic code #5 Agree with preliminary report issued by [facility] ([facility] preliminary report dictated on 01/20/17, 2:48 AM Central Time)
[2017-01-22] MEDS: Sodium Chloride 0.45% with KCl 1,000 ML IV SCH ×3 (02:13→21:44)
[2017-01-22] MEDS: Piperacillin/Tazobactam 4.5 GM in Sodium Chloride 0.9% 100 ML IV SCH ×3 (03:53→21:44)
[2017-01-22] MEDS: metroNIDAZOLE/Normal Saline 500 MG in Premix Bag 1 BAG IV SCH ×3 (03:53→20:36)
--- NOTE | 2017-01-22 07:42 | PCM.CONSN ---
- General Info Date of Service: 01/22/17 Functional Status: Reports: Pain Controlled, Urinating - Review of Systems Gastrointestinal: Reports: Other (No flatus no bowel movement) - Patient Data Vitals - Most Recent: Last Vital Signs Temp 36.9 C 01/22/17 03:36 Pulse 96 01/22/17 03:36 Resp 12 01/22/17 03:36 BP 126/73 01/22/17 03:36 Pulse Ox 100 01/22/17 03:36 Weight - Most Recent: 71.123 kg I&O - Last 24 Hours: Intake & Output 01/21/17 01/22/17 01/22/17 22:59 06:59 14:59 Intake Total 2098 1584 Output Total 300 1150 Balance 1798 434 Lab Results Last 24 Hours: Laboratory Results - last 24 hr 01/22/17 01/22/17 01/22/17 Range/Units 06:30 06:30 06:30 WBC 12.73 H (3.98-10.04) K/mm3 RBC 3.09 L (3.98-5.22) M/mm3 Hgb 8.9 L (11.2-15.7) gm/L Hct 26.5 L (34.1-44.9) % MCV 85.8 (79.4-94.8) fl MCH 28.8 (25.6-32.2) pg MCHC 33.6 (32.2-35.5) g/dl RDW Std Deviation 46.9 H (36.4-46.3) fL Plt Count 332 (182-369) K/mm3 MPV 8.9 L (9.4-12.3) fl Neut % (Auto) 71.8 H (34.0-71.1) % Lymph % (Auto) 12.6 L (19.3-51.7) % [place] % (Auto) 12.2 (4.7-12.5) % Eos % (Auto) 1.4 (0.7-5.8) Baso % (Auto) 0.3 (0.1-1.2) % Neut # (Auto) 9.14 H (1.56-6.13) K/mm3 Lymph # (Auto) 1.60 (1.18-3.74) K/mm3 [place] # (Auto) 1.55 H (0.24-0.36) K/mm3 Eos # (Auto) 0.18 (0.04-0.36) K/mm3 Baso # (Auto) 0.04 (0.01-0.08) K/mm3 Manual Slide Review Abnormal smear Sodium 137 (136-145) mEq/L Potassium 3.6 (3.5-5.1) mEq/L Chloride 106 (98-107) mEq/L Carbon Dioxide 17 L (21-32) mEq/L Anion Gap 17.6 H (5-15) BUN 14 (7-18) mg/dL Creatinine 0.9 (0.55-1.02) mg/dL Est Cr Clr Drug Dosing 59.07 mL/min Estimated GFR (MDRD) > 60 (>60) mL/min BUN/Creatinine Ratio 15.6 (14-18) Glucose 71 L (80-115) mg/dL Lactic Acid 0.6 (0.4-2.0) mmol/L Calcium 7.8 L (8.5-10.1) mg/dL Magnesium 2.0 (1.8-2.4) mg/dl C-Reactive Protein 9.8 H* (<1.0) mg/dL Med Orders - Current: Current Medications Clozapine (Clozapine) 350 mg PO BEDTIME [facility] Last Admin: 01/21/17 20:14 Dose: 350 mg Clozapine (Clozapine) 200 mg PO BID@0800,1400 [facility] Last Admin: 01/21/17 13:50 Dose: 200 mg Enoxaparin Sodium (Lovenox) 40 mg SUBCUT DAILY [facility] Piperacillin Sod/Tazobactam (Sod 4.5 gm/ Sodium Chloride) 100 mls @ 25 mls/hr IV Q8H [facility] Last Admin: 01/22/17 03:53 Dose: 25 mls/hr Metronidazole 500 mg/ Premix 100 mls @ 100 mls/hr IV Q8H [facility] Last Admin: 01/22/17 03:53 Dose: 100 mls/hr Potassium Chloride/Sodium Chloride (1/2 Ns With 20 Meq Kcl) 1,000 mls @ 125 mls /hr IV ASDIRECTED [facility] Last Admin: 01/22/17 02:13 Dose: 125 mls/hr Lorazepam (Ativan) 0.5 mg IVPUSH Q8H PRN PRN Reason: Anxiety Last Admin: 01/21/17 20:13 Dose: 0.5 mg Morphine Sulfate (Morphine) 0.5 mg IVPUSH Q4H PRN PRN Reason: Pain (moderate 4-6) Ondansetron HCl (Zofran) 4 mg IVPUSH Q8H PRN PRN Reason: Nausea/Vomiting Pantoprazole Sodium (Protonix Iv) 40 mg IVPUSH Q12H [facility] Last Admin: 01/21/17 20:15 Dose: 40 mg Discontinued Medications Clozapine (Clozapine) 200 mg PO BID [facility] Clozapine (Clozapine) 200 mg PO ONETIME ONE Stop: 01/20/17 14:46 Last Admin: 01/20/17 14:54 Dose: 200 mg Diatrizoate Meglum/Diatrizoate Sod (Gastrografin 37%) 90 ml PO ONETIME ONE Stop: 01/20/17 01:06 Last Admin: 01/20/17 01:29 Dose: 90 ml Enoxaparin Sodium (Lovenox) 30 mg SUBCUT DAILY [facility] Last Admin: 01/21/17 08:35 Dose: 30 mg Enoxaparin Sodium (Lovenox) 40 mg SUBCUT DAILY [facility] Last Admin: 01/21/17 10:11 Dose: Not Given Sodium Chloride (Normal Saline) 1,000 mls [facility] Last Admin: 01/19/17 22:38 Dose: 500 mls/hr Sodium Chloride (Normal Saline) 1,000 mls @ 125 [facility] Last Admin: 01/20/17 03:52 Dose: 125 mls/hr Sodium Chloride (Normal Saline) 1,000 mls @ 999 mls/hr IV ONETIME ONE Stop: 01/20/17 11:44 Last Admin: 01/20/17 11:38 Dose: 999 mls/hr Sodium Chloride (Normal Saline) 1,000 mls @ [facility] Last Admin: 01/21/17 10:09 Dose: 150 mls/hr Piperacillin Sod/Tazobactam (Sod 4.5 gm/ Sodium Chloride) 100 mls @ 200 mls/hr IV ONETIME ONE Stop: 01/20/17 20:29 Last Admin: 01/20/17 20:35 Dose: 200 mls/hr Magnesium Sulfate 2 gm/ Premix 50 mls @ 25 mls/hr IV ONETIME ONE Stop: 01/21/17 11:14 Last Admin: 01/21/17 10:09 Dose: 25 mls/hr Lidocaine HCl (Xylocaine 2% Jelly) Confirm Administered Dose 10 ml .ROUTE .STK- MED ONE Stop: 01/20/17 02:03 Last Admin: 01/20/17 02:22 Dose: Not Given Lidocaine HCl (Xylocaine 2% Jelly) 10 ml MUCMEM ONETIME ONE Stop: 01/20/17 02:21 Last Admin: 01/20/17 02:22 Dose: 10 ml Lorazepam (Ativan) 0.5 mg IVPUSH Q8H [facility] Last Admin: 01/20/17 14:19 Dose: Not Given Non-Formulary Medication (Nf Drug) 0 each PO DAILY [facility] Ondansetron HCl (Zofran) 4 mg IVPUSH ONETIME ONE Stop: 01/20/17 00:05 Last Admin: 01/20/17 00:13 Dose: 4 mg Pantoprazole Sodium (Protonix Iv) 40 mg IVPUSH ONETIME ONE Stop: 01/19/17 22:30 Last Admin: 01/19/17 22:38 Dose: 40 mg Pantoprazole Sodium (Protonix Iv) 40 mg IVPUSH ACBRK [facility] Last Admin: 01/20/17 06:42 Dose: 40 mg Pantoprazole Sodium (Protonix Iv) 40 mg IVPUSH Q12H [facility] Last Admin: 01/21/17 06:11 Dose: 40 mg - Exam GI/Abdominal Exam: Soft, Distended (Mild to moderate seems little less than yesterday) Consult PN Assessment/Plan Procedures: Procedures ASSAY OF AMYLASE (04/13/16) ASSAY OF FREE THYROXINE (04/13/16) ASSAY OF LACTIC ACID (04/13/16) ASSAY OF LIPASE (04/13/16) ASSAY OF MAGNESIUM (04/13/16) ASSAY OF PHOSPHORUS (04/13/16) ASSAY THYROID STIM HORMONE (04/13/16) C DIFF AMPLIFIED PROBE (04/13/16) C-REACTIVE PROTEIN (04/13/16) CHEST X-RAY 1 VIEW FRONTAL (04/13/16) COMPLETE CBC W/AUTO DIFF WBC (04/13/16) COMPREHEN METABOLIC PANEL (04/13/16) CT ABD & PELV W/CONTRAST (04/13/16) DRUG ASSAY CLOZAPINE (04/13/16) EMERGENCY DEPT VISIT (04/13/16) EMERGENCY DEPT VISIT (08/15/14) EVALUATE SWALLOWING FUNCTION (11/26/13) HPYLORI STOOL IA (04/13/16) HYDRATE IV INFUSION ADD-ON (04/13/16) INSERT PICC CATH (04/13/16) LACTATE (LD) (LDH) ENZYME (04/13/16) METABOLIC PANEL TOTAL CA (04/13/16) OCCULT BLD FECES 1-3 TESTS (04/13/16) OT EVALUATION (04/13/16) PT EVALUATION (04/13/16) RBC SED RATE AUTOMATED (04/13/16) ROUTINE VENIPUNCTURE (04/13/16) STOOL CULTR AEROBIC BACT EA (04/13/16) THER/PROPH/DIAG INJ IV PUSH (04/13/16) THER/PROPH/DIAG IV INF INIT (08/15/14) THERAPEUTIC ACTIVITIES (04/13/16) TX/PRO/DX INJ NEW DRUG ADDON (08/15/14) URINALYSIS AUTO W/SCOPE (04/13/16) URINE CULTURE/COLONY COUNT (04/13/16) VANOMYCIN DNA AMP PROBE (04/13/16) VITAMIN D 25 HYDROXY (04/13/16) X-RAY EXAM OF ABDOMEN (04/13/16) X-RAY EXAM OF ABDOMEN (04/13/16) X-RAY EXAM SERIES ABDOMEN (04/13/16) Problem List Initiated/Reviewed/Updated: Yes My Orders Last 24 Hours: My Active Orders 01/22/17 07:00 Abdomen 2V AP Flat Upright [CR] Routine imp: Evolving small bowel obstruction. Magnesium normal. Potassium being replaced. Abdominal films pending. plan: Bowel rest with x-rays pending.
[2017-01-22] MEDS: Pantoprazole 40 MG Vial IVPUSH SCH ×2 (08:39→20:36)
[2017-01-22] MEDS: cloZAPine 100 MG Tab PO SCH ×3 (08:39→20:52)
[2017-01-22] MEDS: Enoxaparin 40 MG/0.4 ML Syringe SUBCUT SCH (08:40)
--- NOTE | 2017-01-22 09:15 | CR ---
Abdomen: Supine and upright views of the abdomen were obtained. Comparison: Previous CT exam of 01/20/17 of the abdomen and pelvis and previous abdominal x-ray of 01/19/17. Mildly prominent gas-filled loops small bowel are noted. These are less prominent than on prior exam. Contrast noted from previous CT within the colon. No free air is seen. Slight atelectasis is seen within the left base. Mild degenerative change is noted within the spine. Calcifications are seen within the pelvis which are likely due to phleboliths. Impression: 1. Mildly dilated air-filled loops of small bowel. Findings are improved but not resolved from previous exam. 2. Contrast seen within the colon from previous CT exam which excludes complete obstruction. Diagnostic code #3
--- NOTE | 2017-01-22 09:30 | PCM.PN ---
<Kailyn Costa - Last Filed: 01/22/17 11:09> - General Info Date of Service: 01/22/17 Admission Dx/Problem (Free Text): Admission Diagnosis/Problem Admission Diagnosis/Problem Small bowel obstruction Claudia is seen this morning resting comfortably in bed. NG in place, draining bile like secretions, ~ 400cc over the past 24 hours. She states overall abdominal pain is slightly improved from yesterday; she is hungry this morning. Afebrile and VSS. Abd xray completed this morning. She refused PT this morning. She lives at home in [place] with her Mother. She has a case managers, Jacerudi who is available to come to hospital at any point if needed. Functional Status: Reports: Pain Controlled, Ambulating, Urinating. Denies: Tolerating Diet (NPO) - Review of Systems General: Reports: Weakness (generalized). Denies: Fever, Fatigue HEENT: Reports: No Symptoms Pulmonary: Reports: No Symptoms Cardiovascular: Reports: No Symptoms Gastrointestinal: Reports: Abdominal Pain (generalized). Denies: Nausea, Vomiting Genitourinary: Reports: No Symptoms Psychiatric: Reports: Mood Lability - Patient Data Vitals - Most Recent: Last Vital Signs Temp 97.9 F 01/22/17 07:09 Pulse 99 01/22/17 07:09 Resp 16 01/22/17 07:09 BP 126/81 01/22/17 07:09 Pulse Ox 100 01/22/17 07:09 Weight - Most Recent: 71.123 kg I&O - Last 24 Hours: Intake & Output 01/21/17 01/22/17 01/22/17 22:59 06:59 14:59 Intake Total 2098 1584 Output Total 300 1150 Balance 1798 434 Lab Results Last 24 Hours: Laboratory Results - last 24 hr 01/22/17 01/22/17 01/22/17 Range/Units 06:30 06:30 06:30 WBC 12.73 H (3.98-10.04) K/mm3 RBC 3.09 L (3.98-5.22) M/mm3 Hgb 8.9 L (11.2-15.7) gm/L Hct 26.5 L (34.1-44.9) % MCV 85.8 (79.4-94.8) fl MCH 28.8 (25.6-32.2) pg MCHC 33.6 (32.2-35.5) g/dl RDW Std Deviation 46.9 H (36.4-46.3) fL Plt Count 332 (182-369) K/mm3 MPV 8.9 L (9.4-12.3) fl Neut % (Auto) 71.8 H (34.0-71.1) % Lymph % (Auto) 12.6 L (19.3-51.7) % [place] % (Auto) 12.2 (4.7-12.5) % Eos % (Auto) 1.4 (0.7-5.8) Baso % (Auto) 0.3 (0.1-1.2) % Neut # (Auto) 9.14 H (1.56-6.13) K/mm3 Lymph # (Auto) 1.60 (1.18-3.74) K/mm3 [place] # (Auto) 1.55 H (0.24-0.36) K/mm3 Eos # (Auto) 0.18 (0.04-0.36) K/mm3 Baso # (Auto) 0.04 (0.01-0.08) K/mm3 Manual Slide Review Abnormal smear Sodium 137 (136-145) mEq/L Potassium 3.6 (3.5-5.1) mEq/L Chloride 106 (98-107) mEq/L Carbon Dioxide 17 L (21-32) mEq/L Anion Gap 17.6 H (5-15) BUN 14 (7-18) mg/dL Creatinine 0.9 (0.55-1.02) mg/dL Est Cr Clr Drug Dosing 59.07 mL/min Estimated GFR (MDRD) > 60 (>60) mL/min BUN/Creatinine Ratio 15.6 (14-18) Glucose 71 L (80-115) mg/dL Lactic Acid 0.6 (0.4-2.0) mmol/L Calcium 7.8 L (8.5-10.1) mg/dL Magnesium 2.0 (1.8-2.4) mg/dl C-Reactive Protein 9.8 H* (<1.0) mg/dL Med Orders - Current: Current Medications Clozapine (Clozapine) 350 mg PO BEDTIME [facility] Last Admin: 01/21/17 20:14 Dose: 350 mg Clozapine (Clozapine) 200 mg PO BID@0800,1400 [facility] Last Admin: 01/22/17 08:39 Dose: 200 mg Enoxaparin Sodium (Lovenox) 40 mg SUBCUT DAILY [facility] Last Admin: 01/22/17 08:40 Dose: 40 mg Piperacillin Sod/Tazobactam (Sod 4.5 gm/ Sodium Chloride) 100 mls @ 25 mls/hr IV Q8H [facility] Last Admin: 01/22/17 03:53 Dose: 25 mls/hr Metronidazole 500 mg/ Premix 100 mls @ 100 mls/hr IV Q8H [facility] Last Admin: 01/22/17 03:53 Dose: 100 mls/hr Potassium Chloride/Sodium Chloride (1/2 Ns With 20 Meq Kcl) 1,000 mls @ 125 mls /hr IV ASDIRECTED [facility] Last Admin: 01/22/17 09:19 Dose: 125 mls/hr Lorazepam (Ativan) 0.5 mg IVPUSH Q8H PRN PRN Reason: Anxiety Last Admin: 01/21/17 20:13 Dose: 0.5 mg Morphine Sulfate (Morphine) 0.5 mg IVPUSH Q4H PRN PRN Reason: Pain (moderate 4-6) Ondansetron HCl (Zofran) 4 mg IVPUSH Q8H PRN PRN Reason: Nausea/Vomiting Pantoprazole Sodium (Protonix Iv) 40 mg IVPUSH Q12H [facility] Last Admin: 01/22/17 08:39 Dose: 40 mg Discontinued Medications Clozapine (Clozapine) 200 mg PO BID [facility] Clozapine (Clozapine) 200 mg PO ONETIME ONE Stop: 01/20/17 14:46 Last Admin: 01/20/17 14:54 Dose: 200 mg Diatrizoate Meglum/Diatrizoate Sod (Gastrografin 37%) 90 ml PO ONETIME ONE Stop: 01/20/17 01:06 Last Admin: 01/20/17 01:29 Dose: 90 ml Enoxaparin Sodium (Lovenox) 30 mg SUBCUT DAILY [facility] Last Admin: 01/21/17 08:35 Dose: 30 mg Enoxaparin Sodium (Lovenox) 40 mg SUBCUT DAILY [facility] Last Admin: 01/21/17 10:11 Dose: Not Given Sodium Chloride (Normal Saline) 1,000 mls @ 500 mls/hr IV ASDIRECTED [facility] Last Admin: 01/19/17 22:38 Dose: 500 mls/hr Sodium Chloride (Normal Saline) 1,000 mls @ 125 mls/hr IV ASDIRECTED [facility] Last Admin: 01/20/17 03:52 Dose: 125 mls/hr Sodium Chloride (Normal Saline) 1,000 mls @ 999 mls/hr IV ONETIME ONE Stop: 01/20/17 11:44 Last Admin: 01/20/17 11:38 Dose: 999 mls/hr Sodium Chloride (Normal Saline) 1,000 mls @ 150 mls/hr IV ASDIRECTED [facility] Last Admin: 01/21/17 10:09 Dose: 150 mls/hr Piperacillin Sod/Tazobactam (Sod 4.5 gm/ Sodium Chloride) 100 mls @ 200 mls/hr IV ONETIME ONE Stop: 01/20/17 20:29 Last Admin: 01/20/17 20:35 Dose: 200 mls/hr Magnesium Sulfate 2 gm/ Premix 50 mls @ 25 mls/hr IV ONETIME ONE Stop: 01/21/17 11:14 Last Admin: 01/21/17 10:09 Dose: 25 mls/hr Lidocaine HCl (Xylocaine 2% Jelly) Confirm Administered Dose 10 ml .ROUTE .STK- MED ONE Stop: 01/20/17 02:03 Last Admin: 01/20/17 02:22 Dose: Not Given Lidocaine HCl (Xylocaine 2% Jelly) 10 ml MUCMEM ONETIME ONE Stop: 01/20/17 02:21 Last Admin: 01/20/17 02:22 Dose: 10 ml Lorazepam (Ativan) 0.5 mg IVPUSH Q8H [facility] Last Admin: 01/20/17 14:19 Dose: Not Given Non-Formulary Medication (Nf Drug) 0 each PO DAILY [facility] Ondansetron HCl (Zofran) 4 mg IVPUSH ONETIME ONE Stop: 01/20/17 00:05 Last Admin: 01/20/17 00:13 Dose: 4 mg Pantoprazole Sodium (Protonix Iv) 40 mg IVPUSH ONETIME ONE Stop: 01/19/17 22:30 Last Admin: 01/19/17 22:38 Dose: 40 mg Pantoprazole Sodium (Protonix Iv) 40 mg IVPUSH ACBRK [facility] Last Admin: 01/20/17 06:42 Dose: 40 mg Pantoprazole Sodium (Protonix Iv) 40 mg IVPUSH Q12H [facility] Last Admin: 01/21/17 06:11 Dose: 40 mg - Exam Quality Assessment: DVT Prophylaxis General: Alert, Cooperative, No Acute Distress HEENT: Pupils Equal, Pupils Reactive, EOMI, Mucous Membr. Moist/[place] Neck: Supple Lungs: Clear to Auscultation, Normal Respiratory Effort, Decreased Breath Sounds (bases) Cardiovascular: Regular Rate, Regular Rhythm GI/Abdominal Exam: Normal Bowel Sounds, Soft, Tender (generalized but mild tenderness; soft, no G/R/R) (Female) Exam: Deferred Back Exam: Normal Inspection Extremities: Normal Inspection, No Pedal Edema, Normal Capillary Refill Peripheral Pulses: 2+: Dorsalis Pedis (L), Dorsalis Pedis (R) Neurological: No New Focal Deficit, Cranial Nerves Intact Psy/Mental Status: Alert, Normal Affect, Normal Mood - Problem List & Annotations (1) SBO (small bowel obstruction) SNOMED Code(s): 269251438 Code(s): K56.69 - OTHER INTESTINAL OBSTRUCTION Status: Acute Priority: High Current Visit: Yes (2) Dehydration SNOMED Code(s): 31372656 Code(s): E86.0 - DEHYDRATION Status: Acute Priority: High Current Visit : Yes (3) Hypokalemia SNOMED Code(s): 31586434 Code(s): E87.6 - HYPOKALEMIA Status: Acute Priority: High Current Visit : Yes (4) Hypomagnesemia SNOMED Code(s): 622266226 Code(s): E83.42 - HYPOMAGNESEMIA Status: Acute Priority: High Current Visit: Yes (5) Vomiting SNOMED Code(s): 517315666 Code(s): R11.10 - VOMITING, UNSPECIFIED Status: Acute Priority: High Current Visit: Yes QualifierTitle: Vomiting type: unspecified Vomiting Intractability: non- intractable Nausea presence: with nausea Qualified Code(s): R11.2 - Nausea with vomiting, unspecified (6) Schizophrenia SNOMED Code(s): 85405967 Code(s): F20.9 - SCHIZOPHRENIA, UNSPECIFIED Status: Chronic Priority: Medium Current Visit: Yes QualifierTitle: Schizophrenia type: unspecified Qualified Code(s): F20.9 - Schizophrenia, unspecified - Problem List Review Problem List Initiated/Reviewed/Updated: Yes - Plan Plan:: Impression/Plan: SBO, previous episode March 2016- resolved with medical management at that time. Cont with medical management as is slowly improving. -General Surgery, Dr. Barrera following -Abd xray with improvements noted this morning -IV abx and probiotic as below -NGT -NPO -IVF, antiemetics, analgesics PRN Hemoccult positve stool Possible past medical history of Colitis -IV abx as below Query Aspiration PNA -Treating with zosyn IV and flagyl IV, probiotic History of Schizophrenia -cont home meds -Has case managersDigna, that can be called if needed for behavioral concerns Electrolyte abnormalities -Hypokalemia -Hypomagnesemia -Replete and monitor daily Dehydration -IVF rehydration -Labs daily to follow Other: DVT/GI prophylaxis CM/SW for assist with DC planning, case managers is aware of admission and willing to come for assist if needed. Patient is Full Code status- LOS may be >96 hours due to longer than expected course of SBO with medical management, watchful waiting. <Nadia Cummins M - Last Filed: 01/22/17 13:38> - Patient Data Vitals - Most Recent: Last Vital Signs Temp 36.6 C 01/22/17 11:21 Pulse 98 01/22/17 11:21 Resp 14 01/22/17 11:21 BP 137/74 01/22/17 11:21 Pulse Ox 100 01/22/17 11:21 I&O - Last 24 Hours: Intake & Output 01/21/17 01/22/17 01/22/17 22:59 06:59 14:59 Intake Total 2098 1584 Output Total 300 1150 Balance 1798 434 Lab Results Last 24 Hours: Laboratory Results - last 24 hr 01/22/17 01/22/17 01/22/17 Range/Units 06:30 06:30 06:30 WBC 12.73 H (3.98-10.04) K/mm3 RBC 3.09 L (3.98-5.22) M/mm3 Hgb 8.9 L (11.2-15.7) gm/L Hct 26.5 L (34.1-44.9) % MCV 85.8 (79.4-94.8) fl MCH 28.8 (25.6-32.2) pg MCHC 33.6 (32.2-35.5) g/dl RDW Std Deviation 46.9 H (36.4-46.3) fL Plt Count 332 (182-369) K/mm3 MPV 8.9 L (9.4-12.3) fl Neut % (Auto) 71.8 H (34.0-71.1) % Lymph % (Auto) 12.6 L (19.3-51.7) % [place] % (Auto) 12.2 (4.7-12.5) % Eos % (Auto) 1.4 (0.7-5.8) Baso % (Auto) 0.3 (0.1-1.2) % Neut # (Auto) 9.14 H (1.56-6.13) K/mm3 Lymph # (Auto) 1.60 (1.18-3.74) K/mm3 [place] # (Auto) 1.55 H (0.24-0.36) K/mm3 Eos # (Auto) 0.18 (0.04-0.36) K/mm3 Baso # (Auto) 0.04 (0.01-0.08) K/mm3 Manual Slide Review Abnormal smear Sodium 137 (136-145) mEq/L Potassium 3.6 (3.5-5.1) mEq/L Chloride 106 (98-107) mEq/L Carbon Dioxide 17 L (21-32) mEq/L Anion Gap 17.6 H (5-15) BUN 14 (7-18) mg/dL Creatinine 0.9 (0.55-1.02) mg/dL Est Cr Clr Drug Dosing 59.07 mL/min Estimated GFR (MDRD) > 60 (>60) mL/min BUN/Creatinine Ratio 15.6 (14-18) Glucose 71 L (80-115) mg/dL Lactic Acid 0.6 (0.4-2.0) mmol/L Calcium 7.8 L (8.5-10.1) mg/dL Magnesium 2.0 (1.8-2.4) mg/dl C-Reactive Protein 9.8 H* (<1.0) mg/dL Med Orders - Current: Current Medications Clozapine (Clozapine) 350 mg PO BEDTIME [facility] Last Admin: 01/21/17 20:14 Dose: 350 mg Clozapine (Clozapine) 200 mg PO BID@0800,1400 [facility] Last Admin: 01/22/17 08:39 Dose: 200 mg Enoxaparin Sodium (Lovenox) 40 mg SUBCUT DAILY [facility] Last Admin: 01/22/17 08:40 Dose: 40 mg Piperacillin Sod/Tazobactam (Sod 4.5 gm/ Sodium Chloride) 100 mls @ 25 mls/hr IV Q8H [facility] Last Admin: 01/22/17 03:53 Dose: 25 mls/hr Metronidazole 500 mg/ Premix 100 mls @ 100 mls/hr IV Q8H [facility] Last Admin: 01/22/17 12:55 Dose: 100 mls/hr Potassium Chloride/Sodium Chloride (1/2 Ns With 20 Meq Kcl) 1,000 mls @ 125 mls /hr IV ASDIRECTED [facility] Last Admin: 01/22/17 09:19 Dose: 125 mls/hr Lorazepam (Ativan) 0.5 mg IVPUSH Q8H PRN PRN Reason: Anxiety Last Admin: 01/21/17 20:13 Dose: 0.5 mg Morphine Sulfate (Morphine) 0.5 mg IVPUSH Q4H PRN PRN Reason: Pain (moderate 4-6) Ondansetron HCl (Zofran) 4 mg IVPUSH Q8H PRN PRN Reason: Nausea/Vomiting Pantoprazole Sodium (Protonix Iv) 40 mg IVPUSH Q12H [facility] Last Admin: 01/22/17 08:39 Dose: 40 mg Discontinued Medications Clozapine (Clozapine) 200 mg PO BID [facility] Clozapine (Clozapine) 200 mg PO ONETIME ONE Stop: 01/20/17 14:46 Last Admin: 01/20/17 14:54 Dose: 200 mg Diatrizoate Meglum/Diatrizoate Sod (Gastrografin 37%) 90 ml PO ONETIME ONE Stop: 01/20/17 01:06 Last Admin: 01/20/17 01:29 Dose: 90 ml Enoxaparin Sodium (Lovenox) 30 mg SUBCUT DAILY [facility] Last Admin: 01/21/17 08:35 Dose: 30 mg Enoxaparin Sodium (Lovenox) 40 mg SUBCUT DAILY [facility] Last Admin: 01/21/17 10:11 Dose: Not Given Sodium Chloride (Normal Saline) 1,000 mls @ 500 mls/hr IV ASDIRECTED [facility] Last Admin: 01/19/17 22:38 Dose: 500 mls/hr Sodium Chloride (Normal Saline) 1,000 mls @ 125 mls/hr IV ASDIRECTED [facility] Last Admin: 01/20/17 03:52 Dose: 125 mls/hr Sodium Chloride (Normal Saline) 1,000 mls @ 999 mls/hr IV ONETIME ONE Stop: 01/20/17 11:44 Last Admin: 01/20/17 11:38 Dose: 999 mls/hr Sodium Chloride (Normal Saline) 1,000 mls @ 150 mls/hr IV ASDIRECTED [facility] Last Admin: 01/21/17 10:09 Dose: 150 mls/hr Piperacillin Sod/Tazobactam (Sod 4.5 gm/ Sodium Chloride) 100 mls @ 200 mls/hr IV ONETIME ONE Stop: 01/20/17 20:29 Last Admin: 01/20/17 20:35 Dose: 200 mls/hr Magnesium Sulfate 2 gm/ Premix 50 mls @ 25 mls/hr IV ONETIME ONE Stop: 01/21/17 11:14 Last Admin: 01/21/17 10:09 Dose: 25 mls/hr Lidocaine HCl (Xylocaine 2% Jelly) Confirm Administered Dose 10 ml .ROUTE .STK- MED ONE Stop: 01/20/17 02:03 Last Admin: 01/20/17 02:22 Dose: Not Given Lidocaine HCl (Xylocaine 2% Jelly) 10 ml MUCMEM ONETIME ONE Stop: 01/20/17 02:21 Last Admin: 01/20/17 02:22 Dose: 10 ml Lorazepam (Ativan) 0.5 mg IVPUSH Q8H [facility] Last Admin: 01/20/17 14:19 Dose: Not Given Non-Formulary Medication (Nf Drug) 0 each PO DAILY [facility] Ondansetron HCl (Zofran) 4 mg IVPUSH ONETIME ONE Stop: 01/20/17 00:05 Last Admin: 01/20/17 00:13 Dose: 4 mg Pantoprazole Sodium (Protonix Iv) 40 mg IVPUSH ONETIME ONE Stop: 01/19/17 22:30 Last Admin: 01/19/17 22:38 Dose: 40 mg Pantoprazole Sodium (Protonix Iv) 40 mg IVPUSH ACBRK [facility] Last Admin: 01/20/17 06:42 Dose: 40 mg Pantoprazole Sodium (Protonix Iv) 40 mg IVPUSH Q12H [facility] Last Admin: 01/21/17 06:11 Dose: 40 mg - Problem List & Annotations (1) Dehydration SNOMED Code(s): 77165249 Code(s): E86.0 - DEHYDRATION Status: Acute Priority: High Current Visit : Yes (2) Schizophrenia SNOMED Code(s): 29263811 Code(s): F20.9 - SCHIZOPHRENIA, UNSPECIFIED Status: Chronic Priority: Medium Current Visit: Yes Qualifiers: Schizophrenia type: unspecified Qualified Code(s): F20.9 - Schizophrenia, unspecified (3) Small bowel obstruction due to adhesions SNOMED Code(s): 997832051 Code(s): K56.5 - INTESTINAL ADHESIONS W OBST (POSTPROCEDURAL) (POSTINFECTION ) Status: Acute Current Visit: Yes (4) Pneumonia SNOMED Code(s): 496556782 Code(s): J18.9 - PNEUMONIA, UNSPECIFIED ORGANISM Status: Acute Current Visit: Yes - My Orders Last 24 Hours: My Active Orders 01/21/17 21:00 Pantoprazole [ProTONIX IV] 40 mg IVPUSH Q12H 01/22/17 09:00 Enoxaparin [Lovenox] 40 mg SUBCUT DAILY 01/23/17 05:00 BMP [BASIC METABOLIC PANEL,BMP] [CHEM] DAILY CBC WITH AUTO DIFF [HEME] DAILY CRP [C-REACTIVE PROTEIN] [CHEM] DAILY LACTIC ACID [CHEM] DAILY MG [MAGNESIUM] [CHEM] DAILY 01/23/17 08:00 CXR [Chest 2V] [CR] Routine 01/24/17 05:00 BMP [BASIC METABOLIC PANEL,BMP] [CHEM] DAILY CBC WITH AUTO DIFF [HEME] DAILY CRP [C-REACTIVE PROTEIN] [CHEM] DAILY LACTIC ACID [CHEM] DAILY MG [MAGNESIUM] [CHEM] DAILY
[2017-01-23] MEDS: metroNIDAZOLE/Normal Saline 500 MG in Premix Bag 1 BAG IV SCH ×2 (04:37→11:11)
[2017-01-23] MEDS: Piperacillin/Tazobactam 4.5 GM in Sodium Chloride 0.9% 100 ML IV SCH ×2 (06:05→12:22)
--- NOTE | 2017-01-23 07:27 | PCM.CONSN ---
- General Info Date of Service: 01/23/17 Functional Status: Reports: Pain Controlled, Urinating, Other (Out of bed to chair) - Review of Systems Gastrointestinal: Reports: Other (No flatus or bowel movement) - Patient Data Vitals - Most Recent: Last Vital Signs Temp 36.8 C 01/23/17 04:40 Pulse 99 01/23/17 04:40 Resp 16 01/23/17 04:40 BP 144/80 H 01/23/17 04:40 Pulse Ox 98 01/23/17 04:40 Weight - Most Recent: 71.668 kg I&O - Last 24 Hours: Intake & Output 01/22/17 01/23/17 01/23/17 22:59 06:59 14:59 Intake Total 1122 1288 Output Total 310 200 Balance 812 1088 Lab Results Last 24 Hours: Laboratory Results - last 24 hr 01/22/17 01/23/17 01/23/17 Range/Units 06:30 06:31 06:31 WBC 12.53 H (3.98-10.04) K/mm3 RBC 2.99 L (3.98-5.22) M/mm3 Hgb 8.3 L (11.2-15.7) gm/L Hct 25.5 L (34.1-44.9) % MCV 85.3 (79.4-94.8) fl MCH 27.8 (25.6-32.2) pg MCHC 32.5 (32.2-35.5) g/dl RDW Std Deviation 47.1 H (36.4-46.3) fL Plt Count 400 H (182-369) K/mm3 MPV 8.8 L (9.4-12.3) fl Neut % (Auto) 67.9 (34.0-71.1) % Lymph % (Auto) 12.9 L (19.3-51.7) % [place] % (Auto) 12.8 H (4.7-12.5) % Eos % (Auto) 1.3 (0.7-5.8) Baso % (Auto) 0.4 (0.1-1.2) % Neut # (Auto) 8.50 H (1.56-6.13) K/mm3 Lymph # (Auto) 1.62 (1.18-3.74) K/mm3 [place] # (Auto) 1.61 H (0.24-0.36) K/mm3 Eos # (Auto) 0.16 (0.04-0.36) K/mm3 Baso # (Auto) 0.05 (0.01-0.08) K/mm3 Lactic Acid 0.6 0.5 (0.4-2.0) mmol/L Med Orders - Current: Current Medications Bisacodyl (Dulcolax) 10 mg RECTAL DAILY [facility] Clozapine (Clozapine) 350 mg PO BEDTIME [facility] Last Admin: 01/22/17 20:52 Dose: 350 mg Clozapine (Clozapine) 200 mg PO BID@0800,1400 [facility] Last Admin: 01/22/17 14:38 Dose: 200 mg Enoxaparin Sodium (Lovenox) 40 mg SUBCUT DAILY [facility] Last Admin: 01/22/17 08:40 Dose: 40 mg Piperacillin Sod/Tazobactam (Sod 4.5 gm/ Sodium Chloride) 100 mls @ 25 mls/hr IV Q8H [facility] Last Admin: 01/23/17 06:05 Dose: 25 mls/hr Metronidazole 500 mg/ Premix 100 mls @ 100 mls/hr IV Q8H [facility] Last Admin: 01/23/17 04:37 Dose: 100 mls/hr Potassium Chloride/Sodium Chloride (1/2 Ns With 20 Meq Kcl) 1,000 mls @ 125 mls /hr IV ASDIRECTED [facility] Last Admin: 01/22/17 21:44 Dose: 125 mls/hr Lorazepam (Ativan) 0.5 mg IVPUSH Q8H PRN PRN Reason: Anxiety Last Admin: 01/21/17 20:13 Dose: 0.5 mg Morphine Sulfate (Morphine) 0.5 mg IVPUSH Q4H PRN PRN Reason: Pain (moderate 4-6) Ondansetron HCl (Zofran) 4 mg IVPUSH Q8H PRN PRN Reason: Nausea/Vomiting Pantoprazole Sodium (Protonix Iv) 40 mg IVPUSH Q12H [facility] Last Admin: 01/22/17 20:36 Dose: 40 mg Discontinued Medications Clozapine (Clozapine) 200 mg PO BID [facility] Clozapine (Clozapine) 200 mg PO ONETIME ONE Stop: 01/20/17 14:46 Last Admin: 01/20/17 14:54 Dose: 200 mg Diatrizoate Meglum/Diatrizoate Sod (Gastrografin 37%) 90 ml PO ONETIME ONE Stop: 01/20/17 01:06 Last Admin: 01/20/17 01:29 Dose: 90 ml Enoxaparin Sodium (Lovenox) 30 mg SUBCUT DAILY [facility] Last Admin: 01/21/17 08:35 Dose: 30 mg Enoxaparin Sodium (Lovenox) 40 mg SUBCUT DAILY [facility] Last Admin: 01/21/17 10:11 Dose: Not Given Sodium Chloride (Normal Saline) 1,000 mls @ 500 mls/hr IV ASDIRECTED [facility] Last Admin: 01/19/17 22:38 Dose: 500 mls/hr Sodium Chloride (Normal Saline) 1,000 mls @ 125 mls/hr IV ASDIRECTED [facility] Last Admin: 01/20/17 03:52 Dose: 125 mls/hr Sodium Chloride (Normal Saline) 1,000 mls @ 999 mls/hr IV ONETIME ONE Stop: 01/20/17 11:44 Last Admin: 01/20/17 11:38 Dose: 999 mls/hr Sodium Chloride (Normal Saline) 1,000 mls @ 150 mls/hr IV ASDIRECTED [facility] Last Admin: 01/21/17 10:09 Dose: 150 mls/hr Piperacillin Sod/Tazobactam (Sod 4.5 gm/ Sodium Chloride) 100 mls @ 200 mls/hr IV ONETIME ONE Stop: 01/20/17 20:29 Last Admin: 01/20/17 20:35 Dose: 200 mls/hr Magnesium Sulfate 2 gm/ Premix 50 mls @ 25 mls/hr IV ONETIME ONE Stop: 01/21/17 11:14 Last Admin: 01/21/17 10:09 Dose: 25 mls/hr Lidocaine HCl (Xylocaine 2% Jelly) Confirm Administered Dose 10 ml .ROUTE .STK- MED ONE Stop: 01/20/17 02:03 Last Admin: 01/20/17 02:22 Dose: Not Given Lidocaine HCl (Xylocaine 2% Jelly) 10 ml MUCMEM ONETIME ONE Stop: 01/20/17 02:21 Last Admin: 01/20/17 02:22 Dose: 10 ml Lorazepam (Ativan) 0.5 mg IVPUSH Q8H [facility] Last Admin: 01/20/17 14:19 Dose: Not Given Non-Formulary Medication (Nf Drug) 0 each PO DAILY [facility] Ondansetron HCl (Zofran) 4 mg IVPUSH ONETIME ONE Stop: 01/20/17 00:05 Last Admin: 01/20/17 00:13 Dose: 4 mg Pantoprazole Sodium (Protonix Iv) 40 mg IVPUSH ONETIME ONE Stop: 01/19/17 22:30 Last Admin: 01/19/17 22:38 Dose: 40 mg Pantoprazole Sodium (Protonix Iv) 40 mg IVPUSH ACBRK [facility] Last Admin: 01/20/17 06:42 Dose: 40 mg Pantoprazole Sodium (Protonix Iv) 40 mg IVPUSH Q12H [facility] Last Admin: 01/21/17 06:11 Dose: 40 mg - Exam General: Alert, Oriented, Cooperative, No Acute Distress GI/Abdominal Exam: Soft, Non-Tender, Distended (But less than yesterday) Consult PN Assessment/Plan Procedures: Procedures ASSAY OF AMYLASE (04/13/16) ASSAY OF FREE THYROXINE (04/13/16) ASSAY OF LACTIC ACID (04/13/16) ASSAY OF LIPASE (04/13/16) ASSAY OF MAGNESIUM (04/13/16) ASSAY OF PHOSPHORUS (04/13/16) ASSAY THYROID STIM HORMONE (04/13/16) C DIFF AMPLIFIED PROBE (04/13/16) C-REACTIVE PROTEIN (04/13/16) CHEST X-RAY 1 VIEW FRONTAL (04/13/16) COMPLETE CBC W/AUTO DIFF WBC (04/13/16) COMPREHEN METABOLIC PANEL (04/13/16) CT ABD & PELV W/CONTRAST (04/13/16) DRUG ASSAY CLOZAPINE (04/13/16) EMERGENCY DEPT VISIT (04/13/16) EMERGENCY DEPT VISIT (08/15/14) EVALUATE SWALLOWING FUNCTION (11/26/13) HPYLORI STOOL IA (04/13/16) HYDRATE IV INFUSION ADD-ON (04/13/16) INSERT PICC CATH (04/13/16) LACTATE (LD) (LDH) ENZYME (04/13/16) METABOLIC PANEL TOTAL CA (04/13/16) OCCULT BLD FECES 1-3 TESTS (04/13/16) OT EVALUATION (04/13/16) PT EVALUATION (04/13/16) RBC SED RATE AUTOMATED (04/13/16) ROUTINE VENIPUNCTURE (04/13/16) STOOL CULTR AEROBIC BACT EA (04/13/16) THER/PROPH/DIAG INJ IV PUSH (04/13/16) THER/PROPH/DIAG IV INF INIT (08/15/14) THERAPEUTIC ACTIVITIES (04/13/16) TX/PRO/DX INJ NEW DRUG ADDON (08/15/14) URINALYSIS AUTO W/SCOPE (04/13/16) URINE CULTURE/COLONY COUNT (04/13/16) VANOMYCIN DNA AMP PROBE (04/13/16) VITAMIN D 25 HYDROXY (04/13/16) X-RAY EXAM OF ABDOMEN (04/13/16) X-RAY EXAM OF ABDOMEN (04/13/16) X-RAY EXAM SERIES ABDOMEN (04/13/16) Problem List Initiated/Reviewed/Updated: Yes My Orders Last 24 Hours: My Active Orders 01/23/17 07:30 Bisacodyl [Dulcolax] 10 mg RECTAL DAILY imp/plan: Evolving partial small bowel obstruction. Exam is stable. Nasogastric output on the other hand is still fairly high. Today I'll try bowel stimulus from below with a Dulcolax suppository. I may try a trial of NG tube clamping tomorrow.
[2017-01-23] MEDS: Bisacodyl 10 MG Supp RECTAL SCH ×2 (08:06→09:22)
[2017-01-23] MEDS: cloZAPine 100 MG Tab PO SCH ×3 (08:14→21:22)
[2017-01-23] MEDS: Pantoprazole 40 MG Vial IVPUSH SCH (08:15)
[2017-01-23] MEDS: Enoxaparin 40 MG/0.4 ML Syringe SUBCUT SCH (08:15)
[2017-01-23] MEDS ORDERED: LORazepam 0.5 MG Tab PO PRN (08:16)
[2017-01-23] MEDS ORDERED: Magnesium Sulfate/Water 2 GM in Premix Bag 1 BAG IV ONE (08:18)
[2017-01-23] MEDS: amLODIPine 5 MG Tab PO SCH (09:21)
[2017-01-23] MEDS: Atenolol 25 MG Tab PO SCH (09:22)
[2017-01-23] MEDS: Levothyroxine 88 MCG Tab PO SCH (09:22)
[2017-01-23] MEDS: Saccharomyces Boulardii (Probiotic) 250 MG Cap PO SCH ×3 (09:23→21:22)
[2017-01-23] MEDS: Dextrose 5%-0.9% NaCl 1,000 ML IV SCH ×2 (09:23→21:22)
--- NOTE | 2017-01-23 10:30 | PCM.PN ---
<Kailyn Costa - Last Filed: 01/23/17 12:18> - General Info Date of Service: 01/23/17 Admission Dx/Problem (Free Text): Admission Diagnosis/Problem Admission Diagnosis/Problem Small bowel obstruction Claudia is seen this morning resting comfortably in bed. NG in place, draining bile like secretions. Remains NPO. Pain is controlled and improving. She continues to refuse PT, refuses to ambulate with staff. Nursing reports also refused suppository ordered by Dr. Barrera this morning. Functional Status: Reports: Pain Controlled, Ambulating, Urinating. Denies: Tolerating Diet (NPO), New Symptoms - Review of Systems General: Reports: No Symptoms. Denies: Fever HEENT: Reports: No Symptoms Pulmonary: Reports: No Symptoms. Denies: Shortness of Breath, Cough Cardiovascular: Reports: No Symptoms. Denies: Chest Pain, Palpitations Gastrointestinal: Reports: Abdominal Pain (mild and improved day-to-day). Denies: Diarrhea, Nausea, Vomiting Genitourinary: Reports: No Symptoms Musculoskeletal: Reports: No Symptoms Skin: Reports: No Symptoms Psychiatric: Reports: Confusion (patient continues to refuse to ambulate with staff stating she has had "heart surgery and she cannot walk"---she has no hx of heart surgery. ), Mood Lability - Patient Data Vitals - Most Recent: Last Vital Signs Temp 98.2 F 01/23/17 08:07 Pulse 104 H 01/23/17 09:22 Resp 16 01/23/17 08:07 BP 127/72 01/23/17 09:22 Pulse Ox 97 01/23/17 08:07 Weight - Most Recent: 71.668 kg I&O - Last 24 Hours: Intake & Output 01/22/17 01/23/17 01/23/17 22:59 06:59 14:59 Intake Total 1122 1288 Output Total 310 200 Balance 812 1088 Lab Results Last 24 Hours: Laboratory Results - last 24 hr 01/23/17 01/23/17 01/23/17 Range/Units 06:31 06:31 06:31 WBC 12.53 H (3.98-10.04) K/mm3 RBC 2.99 L (3.98-5.22) M/mm3 Hgb 8.3 L (11.2-15.7) gm/L Hct 25.5 L (34.1-44.9) % MCV 85.3 (79.4-94.8) fl MCH 27.8 (25.6-32.2) pg MCHC 32.5 (32.2-35.5) g/dl RDW Std Deviation 47.1 H (36.4-46.3) fL Plt Count 400 H (182-369) K/mm3 MPV 8.8 L (9.4-12.3) fl Neut % (Auto) 67.9 (34.0-71.1) % Lymph % (Auto) 12.9 L (19.3-51.7) % [place] % (Auto) 12.8 H (4.7-12.5) % Eos % (Auto) 1.3 (0.7-5.8) Baso % (Auto) 0.4 (0.1-1.2) % Neut # (Auto) 8.50 H (1.56-6.13) K/mm3 Lymph # (Auto) 1.62 (1.18-3.74) K/mm3 [place] # (Auto) 1.61 H (0.24-0.36) K/mm3 Eos # (Auto) 0.16 (0.04-0.36) K/mm3 Baso # (Auto) 0.05 (0.01-0.08) K/mm3 Manual Slide Review Abnormal smear Sodium 135 L (136-145) mEq/L Potassium 3.8 (3.5-5.1) mEq/L Chloride 105 (98-107) mEq/L Carbon Dioxide 12 L (21-32) mEq/L Anion Gap 21.8 H (5-15) BUN 7 (7-18) mg/dL Creatinine 0.8 (0.55-1.02) mg/dL Est Cr Clr Drug Dosing 66.45 mL/min Estimated GFR (MDRD) > 60 (>60) mL/min BUN/Creatinine Ratio 8.8 L (14-18) Glucose 68 L (80-115) mg/dL Lactic Acid 0.5 (0.4-2.0) mmol/L Calcium 7.7 L (8.5-10.1) mg/dL Magnesium 1.7 L (1.8-2.4) mg/dl C-Reactive Protein 6.1 H* (<1.0) mg/dL Med Orders - Current: Current Medications Amlodipine Besylate (Norvasc) 2.5 mg PO DAILY [facility] Last Admin: 01/23/17 09:21 Dose: 2.5 mg Atenolol (Tenormin) 25 mg PO DAILY [facility] Last Admin: 01/23/17 09:22 Dose: 25 mg Bisacodyl (Dulcolax) 10 mg RECTAL DAILY [facility] Last Admin: 01/23/17 09:22 Dose: Not Given Clozapine (Clozapine) 350 mg PO BEDTIME [facility] Last Admin: 01/22/17 20:52 Dose: 350 mg Clozapine (Clozapine) 200 mg PO BID@0800,1400 [facility] Last Admin: 01/23/17 08:14 Dose: 200 mg Enoxaparin Sodium (Lovenox) 40 mg SUBCUT DAILY [facility] Last Admin: 01/23/17 08:15 Dose: 40 mg Piperacillin Sod/Tazobactam (Sod 4.5 gm/ Sodium Chloride) 100 mls @ 25 mls/hr IV Q8H [facility] Last Admin: 01/23/17 06:05 Dose: 25 mls/hr Metronidazole 500 mg/ Premix 100 mls @ 100 mls/hr IV Q8H [facility] Last Admin: 01/23/17 04:37 Dose: 100 mls/hr Dextrose/Sodium Chloride (Dextrose 5%-Normal Saline) 1,000 mls @ 100 mls/hr IV ASDIRECTED [facility] Last Admin: 01/23/17 09:23 Dose: 100 mls/hr Levothyroxine Sodium (Synthroid) 88 mcg PO DAILY [facility] Last Admin: 01/23/17 09:22 Dose: 88 mcg Lorazepam (Ativan) 0.5 mg IVPUSH Q8H PRN PRN Reason: Anxiety Last Admin: 01/21/17 20:13 Dose: 0.5 mg Lorazepam (Ativan) 0.5 mg PO TID PRN PRN Reason: Anxiety Morphine Sulfate (Morphine) 0.5 mg IVPUSH Q4H PRN PRN Reason: Pain (moderate 4-6) Ondansetron HCl (Zofran) 4 mg IVPUSH Q8H PRN PRN Reason: Nausea/Vomiting Pantoprazole Sodium (Protonix) 40 mg PO Q12H [facility] Saccharomyces Boulardii (Florastor) 250 mg PO BID [facility] Last Admin: 01/23/17 09:23 Dose: 250 mg Discontinued Medications Clozapine (Clozapine) 200 mg PO BID [facility] Clozapine (Clozapine) 200 mg PO ONETIME ONE Stop: 01/20/17 14:46 Last Admin: 01/20/17 14:54 Dose: 200 mg Diatrizoate Meglum/Diatrizoate Sod (Gastrografin 37%) 90 ml PO ONETIME ONE Stop: 01/20/17 01:06 Last Admin: 01/20/17 01:29 Dose: 90 ml Enoxaparin Sodium (Lovenox) 30 mg SUBCUT DAILY [facility] Last Admin: 01/21/17 08:35 Dose: 30 mg Enoxaparin Sodium (Lovenox) 40 mg SUBCUT DAILY [facility] Last Admin: 01/21/17 10:11 Dose: Not Given Sodium Chloride (Normal Saline) 1,000 mls @ 500 [facility] Last Admin: 01/19/17 22:38 Dose: 500 mls/hr Sodium Chloride (Normal Saline) 1,000 mls @ 125 mls/hr [facility] Last Admin: 01/20/17 03:52 Dose: 125 mls/hr Sodium Chloride (Normal Saline) 1,000 mls @ 999 mls/hr IV ONETIME ONE Stop: 01/20/17 11:44 Last Admin: 01/20/17 11:38 Dose: 999 mls/hr Sodium Chloride (Normal Saline) 1,000 mls @ 150 [facility]ls[facility]hr [facility] Last Admin: 01/21/17 10:09 Dose: 150 mls/hr Piperacillin Sod/Tazobactam (Sod 4.5 gm/ Sodium Chloride) 100 mls @ 200 mls/hr IV ONETIME ONE Stop: 01/20/17 20:29 Last Admin: 01/20/17 20:35 Dose: 200 mls/hr Magnesium Sulfate 2 gm/ Premix 50 mls @ 25 mls/hr IV ONETIME ONE Stop: 01/21/17 11:14 Last Admin: 01/21/17 10:09 Dose: 25 mls/hr Potassium Chloride/Sodium Chloride (1/2 Ns With 20 Meq Kcl) 1,000 mls @ 125 mls /[facility] Last Admin: 01/22/17 21:44 Dose: 125 mls/hr Magnesium Sulfate 2 gm/ Premix 50 mls @ 25 mls/hr IV ONETIME ONE Stop: 01/23/17 10:17 Last Admin: 01/23/17 09:21 Dose: 25 mls/hr Lidocaine HCl (Xylocaine 2% Jelly) Confirm Administered Dose 10 ml .ROUTE .STK- MED ONE Stop: 01/20/17 02:03 Last Admin: 01/20/17 02:22 Dose: Not Given Lidocaine HCl (Xylocaine 2% Jelly) 10 ml MUCMEM ONETIME ONE Stop: 01/20/17 02:21 Last Admin: 01/20/17 02:22 Dose: 10 ml Lorazepam (Ativan) 0.5 mg IVPUSH Q8H [facility] Last Admin: 01/20/17 14:19 Dose: Not Given Non-Formulary Medication (Nf Drug) 0 each PO DAILY [facility] Ondansetron HCl (Zofran) 4 mg IVPUSH ONETIME ONE Stop: 01/20/17 00:05 Last Admin: 01/20/17 00:13 Dose: 4 mg Pantoprazole Sodium (Protonix Iv) 40 mg IVPUSH ONETIME ONE Stop: 01/19/17 22:30 Last Admin: 01/19/17 22:38 Dose: 40 mg Pantoprazole Sodium (Protonix Iv) 40 mg IVPUSH ACBRK [facility] Last Admin: 01/20/17 06:42 Dose: 40 mg Pantoprazole Sodium (Protonix Iv) 40 mg IVPUSH Q12H [facility] Last Admin: 01/21/17 06:11 Dose: 40 mg Pantoprazole Sodium (Protonix Iv) 40 mg IVPUSH Q12H [facility] Last Admin: 01/23/17 08:15 Dose: 40 mg - Exam Quality Assessment: DVT Prophylaxis General: Alert, Cooperative, No Acute Distress, Other (NG tube in place) HEENT: Pupils Equal, EOMI, Mucous Membr. Moist/[place] Neck: Supple Lungs: Clear to Auscultation, Decreased Breath Sounds (bases) Cardiovascular: Regular Rate, Regular Rhythm GI/Abdominal Exam: Normal Bowel Sounds, Soft, Tender (mild tenderness diffusely) (Female) Exam: Deferred Extremities: Normal Inspection, No Pedal Edema, Normal Capillary Refill Peripheral Pulses: 1+: Dorsalis Pedis (L), Dorsalis Pedis (R) Skin: Warm, Dry Neurological: No New Focal Deficit, Normal Speech, Normal Tone Psy/Mental Status: Alert, Labile Mood - Problem List & Annotations (1) SBO (small bowel obstruction) SNOMED Code(s): 554742130 Code(s): K56.69 - OTHER INTESTINAL OBSTRUCTION Status: Acute Priority: High Current Visit: Yes (2) Dehydration SNOMED Code(s): 91166210 Code(s): E86.0 - DEHYDRATION Status: Acute Priority: High Current Visit : Yes (3) Hypokalemia SNOMED Code(s): 69492527 Code(s): E87.6 - HYPOKALEMIA Status: Acute Priority: High Current Visit : Yes (4) Hypomagnesemia SNOMED Code(s): 359889386 Code(s): E83.42 - HYPOMAGNESEMIA Status: Acute Priority: High Current Visit: Yes (5) Vomiting SNOMED Code(s): 392458767 Code(s): R11.10 - VOMITING, UNSPECIFIED Status: Acute Priority: High Current Visit: Yes QualifierTitle: Vomiting type: unspecified Vomiting Intractability: non- intractable Nausea presence: with nausea Qualified Code(s): R11.2 - Nausea with vomiting, unspecified (6) Schizophrenia SNOMED Code(s): 57533837 Code(s): F20.9 - SCHIZOPHRENIA, UNSPECIFIED Status: Chronic Priority: Medium Current Visit: Yes QualifierTitle: Schizophrenia type: unspecified Qualified Code(s): F20.9 - Schizophrenia, unspecified - Problem List Review Problem List Initiated/Reviewed/Updated: Yes - My Orders Last 24 Hours: My Active Orders 01/23/17 08:16 LORazepam [Ativan] 0.5 mg PO TID PRN 01/23/17 08:30 Dextrose 5%-0.9% NaCl [Dextrose 5%-Normal Saline] 1,000 ml IV ASDIRECTED Saccharomyces Boulardii [Florastor] 250 mg PO BID 01/23/17 09:00 Atenolol [Tenormin] 25 mg PO DAILY Levothyroxine [Synthroid] 88 mcg PO DAILY amLODIPine [Norvasc] 2.5 mg PO DAILY 01/23/17 10:20 Up to Chair [RC] QID - Plan Plan:: Impression/Plan: SBO, previous episode March 2016- resolved with medical management at that time. Cont with medical management as is slowly improving. -General Surgery, Dr. Barrera following -Abd xray with improvements noted this morning -IV abx and probiotic as below -NGT -NPO -IVF, antiemetics, analgesics PRN -Patient refusing ambulation and now this am refusing suppository ordered per Dr. Barrera; long discussion with her re: following recommendations regarding medical management, best outcomes possible Hemoccult positve stool Possible past medical history of Colitis -IV abx as below Query Aspiration PNA -Treating with zosyn IV and flagyl IV, probiotic----CXR clear from aspiration PNA standpoint today- will DC abx. Cont florastor. History of Schizophrenia -cont home meds -Has adult protective caseworker, Digna, that can be called if needed for behavioral concerns Electrolyte abnormalities -Hypokalemia -Hypomagnesemia -Replete and monitor daily Dehydration -IVF rehydration--change to D5NS today -Labs daily to follow Other: DVT/GI prophylaxis CM/SW for assist with DC planning, adult protective caseworker is aware of admission and willing to come for assist if needed. Patient is Full Code status- LOS may be >96 hours due to longer than expected course of SBO with medical management, watchful waiting, General Surgery also following. <Nadia Cummins - Last Filed: 01/23/17 16:07> - Patient Data Vitals - Most Recent: Last Vital Signs Temp 36.8 C 01/23/17 08:07 Pulse 104 H 01/23/17 09:22 Resp 16 01/23/17 08:07 BP 127/72 01/23/17 09:22 Pulse Ox 97 01/23/17 08:07 I&O - Last 24 Hours: Intake & Output 01/23/17 01/23/17 01/23/17 06:59 14:59 22:59 Intake Total 1288 Output Total 200 Balance 1088 Lab Results Last 24 Hours: Laboratory Results - last 24 hr 01/23/17 01/23/17 01/23/17 Range/Units 06:31 06:31 06:31 WBC 12.53 H (3.98-10.04) K/mm3 RBC 2.99 L (3.98-5.22) M/mm3 Hgb 8.3 L (11.2-15.7) gm/L Hct 25.5 L (34.1-44.9) % MCV 85.3 (79.4-94.8) fl MCH 27.8 (25.6-32.2) pg MCHC 32.5 (32.2-35.5) g/dl RDW Std Deviation 47.1 H (36.4-46.3) fL Plt Count 400 H (182-369) K/mm3 MPV 8.8 L (9.4-12.3) fl Neut % (Auto) 67.9 (34.0-71.1) % Lymph % (Auto) 12.9 L (19.3-51.7) % [place] % (Auto) 12.8 H (4.7-12.5) % Eos % (Auto) 1.3 (0.7-5.8) Baso % (Auto) 0.4 (0.1-1.2) % Neut # (Auto) 8.50 H (1.56-6.13) K/mm3 Lymph # (Auto) 1.62 (1.18-3.74) K/mm3 [place] # (Auto) 1.61 H (0.24-0.36) K/mm3 Eos # (Auto) 0.16 (0.04-0.36) K/mm3 Baso # (Auto) 0.05 (0.01-0.08) K/mm3 Manual Slide Review Abnormal smear Sodium 135 L (136-145) mEq/L Potassium 3.8 (3.5-5.1) mEq/L Chloride 105 (98-107) mEq/L Carbon Dioxide 12 L (21-32) mEq/L Anion Gap 21.8 H (5-15) BUN 7 (7-18) mg/dL Creatinine 0.8 (0.55-1.02) mg/dL Est Cr Clr Drug Dosing 66.45 mL/min Estimated GFR (MDRD) > 60 (>60) mL/min BUN/Creatinine Ratio 8.8 L (14-18) Glucose 68 L (80-115) mg/dL Lactic Acid 0.5 (0.4-2.0) mmol/L Calcium 7.7 L (8.5-10.1) mg/dL Magnesium 1.7 L (1.8-2.4) mg/dl C-Reactive Protein 6.1 H* (<1.0) mg/dL Med Orders - Current: Current Medications Amlodipine Besylate (Norvasc) 2.5 mg PO DAILY [facility] Last Admin: 01/23/17 09:21 Dose: 2.5 mg Atenolol (Tenormin) 25 mg PO DAILY [facility] Last Admin: 01/23/17 09:22 Dose: 25 mg Bisacodyl (Dulcolax) 10 mg RECTAL DAILY [facility] Last Admin: 01/23/17 09:22 Dose: Not Given Clozapine (Clozapine) 350 mg PO BEDTIME [facility] Last Admin: 01/22/17 20:52 Dose: 350 mg Clozapine (Clozapine) 200 mg PO BID@0800,1400 [facility] Last Admin: 01/23/17 14:00 Dose: 200 mg Enoxaparin Sodium (Lovenox) 40 mg SUBCUT DAILY [facility] Last Admin: 01/23/17 08:15 Dose: 40 mg Dextrose/Sodium Chloride (Dextrose 5%-Normal Saline) 1,000 mls @ 100 mls/hr IV ASDIRECTED [facility] Last Admin: 01/23/17 09:23 Dose: 100 mls/hr Levothyroxine Sodium (Synthroid) 88 mcg PO DAILY [facility] Last Admin: 01/23/17 09:22 Dose: 88 mcg Lorazepam (Ativan) 0.5 mg IVPUSH Q8H PRN PRN Reason: Anxiety Last Admin: 01/21/17 20:13 Dose: 0.5 mg Lorazepam (Ativan) 0.5 mg PO TID PRN PRN Reason: Anxiety Morphine Sulfate (Morphine) 0.5 mg IVPUSH Q4H PRN PRN Reason: Pain (moderate 4-6) Ondansetron HCl (Zofran) 4 mg IVPUSH Q8H PRN PRN Reason: Nausea/Vomiting Pantoprazole Sodium (Protonix) 40 mg PO Q12H [facility] Saccharomyces Boulardii (Florastor) 250 mg PO BID [facility] Last Admin: 01/23/17 09:23 Dose: 250 mg Discontinued Medications Clozapine (Clozapine) 200 mg PO BID [facility] Clozapine (Clozapine) 200 mg PO ONETIME ONE Stop: 01/20/17 14:46 Last Admin: 01/20/17 14:54 Dose: 200 mg Diatrizoate Meglum/Diatrizoate Sod (Gastrografin 37%) 90 ml PO ONETIME ONE Stop: 01/20/17 01:06 Last Admin: 01/20/17 01:29 Dose: 90 ml Enoxaparin Sodium (Lovenox) 30 mg SUBCUT DAILY [facility] Last Admin: 01/21/17 08:35 Dose: 30 mg Enoxaparin Sodium (Lovenox) 40 mg SUBCUT DAILY [facility] Last Admin: 01/21/17 10:11 Dose: Not Given Sodium Chloride (Normal Saline) 1,000 mls @ 500 mls/hr IV ASDIRECTED [facility] Last Admin: 01/19/17 22:38 Dose: 500 mls/hr Sodium Chloride (Normal Saline) 1,000 mls @ 125 mls/hr IV ASDIRECTED [facility] Last Admin: 01/20/17 03:52 Dose: 125 mls/hr Sodium Chloride (Normal Saline) 1,000 mls @ 999 mls/hr IV ONETIME ONE Stop: 01/20/17 11:44 Last Admin: 01/20/17 11:38 Dose: 999 mls/hr Sodium Chloride (Normal Saline) 1,000 mls @ 150 mls/hr IV ASDIRECTED [facility] Last Admin: 01/21/17 10:09 Dose: 150 mls/hr Piperacillin Sod/Tazobactam (Sod 4.5 gm/ Sodium Chloride) 100 mls @ 25 mls/hr IV Q8H [facility] Last Admin: 01/23/17 12:22 Dose: 25 mls/hr Piperacillin Sod/Tazobactam (Sod 4.5 gm/ Sodium Chloride) 100 mls @ 200 mls/hr IV ONETIME ONE Stop: 01/20/17 20:29 Last Admin: 01/20/17 20:35 Dose: 200 mls/hr Metronidazole 500 mg/ Premix 100 mls @ 100 mls/hr IV Q8H [facility] Last Admin: 01/23/17 11:11 Dose: 100 mls/hr Magnesium Sulfate 2 gm/ Premix 50 mls @ 25 mls/hr IV ONETIME ONE Stop: 01/21/17 11:14 Last Admin: 01/21/17 10:09 Dose: 25 mls/hr Potassium Chloride/Sodium Chloride (1/2 Ns With 20 Meq Kcl) 1,000 mls @ 125 mls /hr IV ASDIRECTED [facility] Last Admin: 01/22/17 21:44 Dose: 125 mls/hr Magnesium Sulfate 2 gm/ Premix 50 mls @ 25 mls/hr IV ONETIME ONE Stop: 01/23/17 10:17 Last Admin: 01/23/17 09:21 Dose: 25 mls/hr Lidocaine HCl (Xylocaine 2% Jelly) Confirm Administered Dose 10 ml .ROUTE .STK- MED ONE Stop: 01/20/17 02:03 Last Admin: 01/20/17 02:22 Dose: Not Given Lidocaine HCl (Xylocaine 2% Jelly) 10 ml MUCMEM ONETIME ONE Stop: 01/20/17 02:21 Last Admin: 01/20/17 02:22 Dose: 10 ml Lorazepam (Ativan) 0.5 mg IVPUSH Q8H [facility] Last Admin: 01/20/17 14:19 Dose: Not Given Non-Formulary Medication (Nf Drug) 0 each PO DAILY [facility] Ondansetron HCl (Zofran) 4 mg IVPUSH ONETIME ONE Stop: 01/20/17 00:05 Last Admin: 01/20/17 00:13 Dose: 4 mg Pantoprazole Sodium (Protonix Iv) 40 mg IVPUSH ONETIME ONE Stop: 01/19/17 22:30 Last Admin: 01/19/17 22:38 Dose: 40 mg Pantoprazole Sodium (Protonix Iv) 40 mg IVPUSH ACBRK [facility] Last Admin: 01/20/17 06:42 Dose: 40 mg Pantoprazole Sodium (Protonix Iv) 40 mg IVPUSH Q12H [facility] Last Admin: 01/21/17 06:11 Dose: 40 mg Pantoprazole Sodium (Protonix Iv) 40 mg IVPUSH Q12H [facility] Last Admin: 01/23/17 08:15 Dose: 40 mg - Problem List & Annotations (1) Dehydration SNOMED Code(s): 07470269 Code(s): E86.0 - DEHYDRATION Status: Acute Priority: High Current Visit : Yes (2) Schizophrenia SNOMED Code(s): 85273262 Code(s): F20.9 - SCHIZOPHRENIA, UNSPECIFIED Status: Chronic Priority: Medium Current Visit: Yes Qualifiers: Schizophrenia type: unspecified Qualified Code(s): F20.9 - Schizophrenia, unspecified (3) Small bowel obstruction due to adhesions SNOMED Code(s): 151557128 Code(s): K56.5 - INTESTINAL ADHESIONS W OBST (POSTPROCEDURAL) (POSTINFECTION ) Status: Acute Current Visit: Yes (4) Pneumonia SNOMED Code(s): 985784888 Code(s): J18.9 - PNEUMONIA, UNSPECIFIED ORGANISM Status: Acute Current Visit: Yes - My Orders Last 24 Hours: My Active Orders 01/23/17 21:00 Pantoprazole [ProTONIX] 40 mg PO Q12H 01/24/17 05:00 BMP [BASIC METABOLIC PANEL,BMP] [CHEM] DAILY CBC WITH AUTO DIFF [HEME] DAILY CRP [C-REACTIVE PROTEIN] [CHEM] DAILY LACTIC ACID [CHEM] DAILY MG [MAGNESIUM] [CHEM] DAILY - Plan Plan:: Patients's POA is reportedly terminal with minimal availability except by phone ; a niece is attempting to assist with the patient's needs. A brief discussion occurred regarding the SBO/NGT, etc. The family wishes to have a EGD /Colonoscopy which was refused last year by the patient who did not keep the scheduled procedure. As discussed, the final decision is by the general surgeon , however, it is not the primary focus of this admission. This was explained in detail; also SBO treatment was clarified: NGT, conservative mgt cf surgery; additionally how the diet is advanced was covered. A total of 15 minutes was used for the family conference.
--- NOTE | 2017-01-23 12:07 | CR ---
Chest: Two views of the chest were obtained. Comparison: Previous chest x-ray of 01/20/17. Heart size is normal. Tortuous thoracic aorta is seen. Small bilateral pleural effusions are seen. Lungs are hyperinflated compatible with emphysematous change. Lungs otherwise are clear. Minimal degenerative change is scattered within the spine. Nasogastric tube has been removed from prior exam. Impression: 1. Small bilateral pleural effusions. 2. Emphysematous change. 3. Removal of nasogastric tube from prior exam. Diagnostic code #3
[2017-01-23] MEDS: Pantoprazole 40 MG Tab.CR PO SCH (21:22)
[2017-01-24] MEDS: Dextrose 5%-0.9% NaCl 1,000 ML IV SCH (06:40)
--- NOTE | 2017-01-24 07:48 | PCM.CONSN ---
- General Info Date of Service: 01/24/17 - Review of Systems Gastrointestinal: Reports: Abdominal Pain (Had crampy abdominal pain with diarrhea), Diarrhea (Watery and occurring 5 or 6 times yesterday), Flatus ( Associated with diarrhea) - Patient Data Vitals - Most Recent: Last Vital Signs Temp 37.1 C 01/24/17 03:17 Pulse 95 01/24/17 03:17 Resp 18 01/24/17 03:17 BP 142/76 H 01/24/17 03:17 Pulse Ox 97 01/24/17 03:17 Weight - Most Recent: 71.866 kg I&O - Last 24 Hours: Intake & Output 01/23/17 01/24/17 01/24/17 22:59 06:59 14:59 Intake Total 926 1387 Output Total 100 300 Balance 826 1087 Lab Results Last 24 Hours: Laboratory Results - last 24 hr 01/23/17 01/24/17 01/24/17 Range/Units 06:31 06:35 06:35 WBC 12.57 H (3.98-10.04) K/mm3 RBC 3.17 L (3.98-5.22) M/mm3 Hgb 8.9 L (11.2-15.7) gm/L Hct 26.9 L (34.1-44.9) % MCV 84.9 (79.4-94.8) fl MCH 28.1 (25.6-32.2) pg MCHC 33.1 (32.2-35.5) g/dl RDW Std Deviation 48.7 H (36.4-46.3) fL Plt Count 378 H (182-369) K/mm3 MPV 8.0 L (9.4-12.3) fl Neut % (Auto) 62.9 (34.0-71.1) % Lymph % (Auto) 12.1 L (19.3-51.7) % [place] % (Auto) 15.8 H (4.7-12.5) % Eos % (Auto) 2.2 (0.7-5.8) Baso % (Auto) 1.4 H (0.1-1.2) % Neut # (Auto) 7.91 H (1.56-6.13) K/mm3 Lymph # (Auto) 1.52 (1.18-3.74) K/mm3 [place] # (Auto) 1.98 H (0.24-0.36) K/mm3 Eos # (Auto) 0.28 (0.04-0.36) K/mm3 Baso # (Auto) 0.18 H (0.01-0.08) K/mm3 Manual Slide Review Abnormal smear Abnormal smear Lactic Acid 0.9 (0.4-2.0) mmol/L Med Orders - Current: Current Medications Amlodipine Besylate (Norvasc) 2.5 mg PO DAILY [facility] Last Admin: 01/23/17 09:21 Dose: 2.5 mg Atenolol (Tenormin) 25 mg PO DAILY [facility] Last Admin: 01/23/17 09:22 Dose: 25 mg Bisacodyl (Dulcolax) 10 mg RECTAL DAILY [facility] Last Admin: 01/23/17 09:22 Dose: Not Given Clozapine (Clozapine) 350 mg PO BEDTIME [facility] Last Admin: 01/23/17 21:22 Dose: 350 mg Clozapine (Clozapine) 200 mg PO BID@0800,1400 [facility] Last Admin: 01/23/17 14:00 Dose: 200 mg Enoxaparin Sodium (Lovenox) 40 mg SUBCUT DAILY [facility] Last Admin: 01/23/17 08:15 Dose: 40 mg Dextrose/Sodium Chloride (Dextrose 5%-Normal Saline) 1,000 mls @ 100 mls/hr IV ASDIRECTED [facility] Last Admin: 01/24/17 06:40 Dose: 100 mls/hr Levothyroxine Sodium (Synthroid) 88 mcg PO DAILY [facility] Last Admin: 01/23/17 09:22 Dose: 88 mcg Lorazepam (Ativan) 0.5 mg PO TID PRN PRN Reason: Anxiety Morphine Sulfate (Morphine) 0.5 mg IVPUSH Q4H PRN PRN Reason: Pain (moderate 4-6) Ondansetron HCl (Zofran) 4 mg IVPUSH Q8H PRN PRN Reason: Nausea/Vomiting Pantoprazole Sodium (Protonix) 40 mg PO Q12H [facility] Last Admin: 01/23/17 21:22 Dose: 40 mg Saccharomyces Boulardii (Florastor) 250 mg PO BID [facility] Last Admin: 01/23/17 21:22 Dose: 250 mg Discontinued Medications Clozapine (Clozapine) 200 mg PO BID [facility] Clozapine (Clozapine) 200 mg PO ONETIME ONE Stop: 01/20/17 14:46 Last Admin: 01/20/17 14:54 Dose: 200 mg Diatrizoate Meglum/Diatrizoate Sod (Gastrografin 37%) 90 ml PO ONETIME ONE Stop: 01/20/17 01:06 Last Admin: 01/20/17 01:29 Dose: 90 ml Enoxaparin Sodium (Lovenox) 30 mg SUBCUT DAILY [facility] Last Admin: 01/21/17 08:35 Dose: 30 mg Enoxaparin Sodium (Lovenox) 40 mg SUBCUT DAILY [facility] Last Admin: 01/21/17 10:11 Dose: Not Given Sodium Chloride (Normal Saline) 1,000 mls @ 500 mls/hr IV ASDIRECTED [facility] Last Admin: 01/19/17 22:38 Dose: 500 mls/hr Sodium Chloride (Normal Saline) 1,000 mls @ 125 mls/hr IV ASDIRECTED [facility] Last Admin: 01/20/17 03:52 Dose: 125 mls/hr Sodium Chloride (Normal Saline) 1,000 mls @ 999 mls/hr IV ONETIME ONE Stop: 01/20/17 11:44 Last Admin: 01/20/17 11:38 Dose: 999 mls/hr Sodium Chloride (Normal Saline) 1,000 mls @ 150 mls/hr IV ASDIRECTED [facility] Last Admin: 01/21/17 10:09 Dose: 150 mls/hr Piperacillin Sod/Tazobactam (Sod 4.5 gm/ Sodium Chloride) 100 mls @ 25 mls/hr IV Q8H [facility] Last Admin: 01/23/17 12:22 Dose: 25 mls/hr Piperacillin Sod/Tazobactam (Sod 4.5 gm/ Sodium Chloride) 100 mls @ 200 mls/hr IV ONETIME ONE Stop: 01/20/17 20:29 Last Admin: 01/20/17 20:35 Dose: 200 mls/hr Metronidazole 500 mg/ Premix 100 mls @ 100 mls/hr IV Q8H [facility] Last Admin: 01/23/17 11:11 Dose: 100 mls/hr Magnesium Sulfate 2 gm/ Premix 50 mls @ 25 mls/hr IV ONETIME ONE Stop: 01/21/17 11:14 Last Admin: 01/21/17 10:09 Dose: 25 mls/hr Potassium Chloride/Sodium Chloride (1/2 Ns With 20 Meq Kcl) 1,000 mls @ 125 mls /hr IV ASDIRECTED [facility] Last Admin: 01/22/17 21:44 Dose: 125 mls/hr Magnesium Sulfate 2 gm/ Premix 50 mls @ 25 mls/hr IV ONETIME ONE Stop: 01/23/17 10:17 Last Admin: 01/23/17 09:21 Dose: 25 mls/hr Lidocaine HCl (Xylocaine 2% Jelly) Confirm Administered Dose 10 ml .ROUTE .STK- MED ONE Stop: 01/20/17 02:03 Last Admin: 01/20/17 02:22 Dose: Not Given Lidocaine HCl (Xylocaine 2% Jelly) 10 ml MUCMEM ONETIME ONE Stop: 01/20/17 02:21 Last Admin: 01/20/17 02:22 Dose: 10 ml Lorazepam (Ativan) 0.5 mg IVPUSH Q8H [facility] Last Admin: 01/20/17 14:19 Dose: Not Given Lorazepam (Ativan) 0.5 mg IVPUSH Q8H PRN PRN Reason: Anxiety Last Admin: 01/21/17 20:13 Dose: 0.5 mg Non-Formulary Medication (Nf Drug) 0 each PO DAILY [facility] Ondansetron HCl (Zofran) 4 mg IVPUSH ONETIME ONE Stop: 01/20/17 00:05 Last Admin: 01/20/17 00:13 Dose: 4 mg Pantoprazole Sodium (Protonix Iv) 40 mg IVPUSH ONETIME ONE Stop: 01/19/17 22:30 Last Admin: 01/19/17 22:38 Dose: 40 mg Pantoprazole Sodium (Protonix Iv) 40 mg IVPUSH ACBRK [facility] Last Admin: 01/20/17 06:42 Dose: 40 mg Pantoprazole Sodium (Protonix Iv) 40 mg IVPUSH Q12H [facility] Last Admin: 01/21/17 06:11 Dose: 40 mg Pantoprazole Sodium (Protonix Iv) 40 mg IVPUSH Q12H [facility] Last Admin: 01/23/17 08:15 Dose: 40 mg - Exam GI/Abdominal Exam: Soft, Non-Tender, Distended (Mild to moderate no significant interval change from yesterday) Consult PN Assessment/Plan Procedures: Procedures ASSAY OF AMYLASE (04/13/16) ASSAY OF FREE THYROXINE (04/13/16) ASSAY OF LACTIC ACID (04/13/16) ASSAY OF LIPASE (04/13/16) ASSAY OF MAGNESIUM (04/13/16) ASSAY OF PHOSPHORUS (04/13/16) ASSAY THYROID STIM HORMONE (04/13/16) C DIFF AMPLIFIED PROBE (04/13/16) C-REACTIVE PROTEIN (04/13/16) CHEST X-RAY 1 VIEW FRONTAL (04/13/16) COMPLETE CBC W/AUTO DIFF WBC (04/13/16) COMPREHEN METABOLIC PANEL (04/13/16) CT ABD & PELV W/CONTRAST (04/13/16) DRUG ASSAY CLOZAPINE (04/13/16) EMERGENCY DEPT VISIT (04/13/16) EMERGENCY DEPT VISIT (08/15/14) EVALUATE SWALLOWING FUNCTION (11/26/13) HPYLORI STOOL IA (04/13/16) HYDRATE IV INFUSION ADD-ON (04/13/16) INSERT PICC CATH (04/13/16) LACTATE (LD) (LDH) ENZYME (04/13/16) METABOLIC PANEL TOTAL CA (04/13/16) OCCULT BLD FECES 1-3 TESTS (04/13/16) OT EVALUATION (04/13/16) PT EVALUATION (04/13/16) RBC SED RATE AUTOMATED (04/13/16) ROUTINE VENIPUNCTURE (04/13/16) STOOL CULTR AEROBIC BACT EA (04/13/16) THER/PROPH/DIAG INJ IV PUSH (04/13/16) THER/PROPH/DIAG IV INF INIT (08/15/14) THERAPEUTIC ACTIVITIES (04/13/16) TX/PRO/DX INJ NEW DRUG ADDON (08/15/14) URINALYSIS AUTO W/SCOPE (04/13/16) URINE CULTURE/COLONY COUNT (04/13/16) VANOMYCIN DNA AMP PROBE (04/13/16) VITAMIN D 25 HYDROXY (04/13/16) X-RAY EXAM OF ABDOMEN (04/13/16) X-RAY EXAM OF ABDOMEN (04/13/16) X-RAY EXAM SERIES ABDOMEN (04/13/16) Problem List Initiated/Reviewed/Updated: Yes My Orders Last 24 Hours: My Active Orders 01/23/17 07:30 Bisacodyl [Dulcolax] 10 mg RECTAL DAILY 01/24/17 07:44 Abdomen 2V AP Flat Upright [CR] Routine Plan: imp: Watery diarrhea and the passage of gas are both good signs. Because of this I will begin to wean the nasogastric tube by clamping the tube. Her white blood cell count is slightly elevated. plan: Clamp nasogastric tube. Follow-up two-view of the abdomen to be done today.
--- NOTE | 2017-01-24 08:24 | CR ---
Chest: Frontal view of the chest was obtained. Comparison: Previous chest x-ray of 01/25/17. Heart is slightly enlarged but is accentuated from portable technique. Tortuous thoracic aorta is seen. Increased density is noted within both lung bases which appears slightly increased from prior exam possibly due to mild increased atelectasis. Nasogastric tube is seen with tip lying in the area of the proximal stomach past the gastroesophageal junction. Bony structures are grossly intact. Impression: 1. Slight increased density within both lung bases most likely representing atelectasis superimposed upon chronic pleural thickening. 2. Nasogastric tube is seen with tip lying past the gastroesophageal junction within the proximal stomach. Diagnostic code #3 Agree with preliminary report issued by [facility] ([facility] preliminary report dictated on 01/23/17, 10:13 PM Central Time)
[2017-01-24] MEDS: Saccharomyces Boulardii (Probiotic) 250 MG Cap PO SCH ×2 (08:56→20:09)
[2017-01-24] MEDS: Levothyroxine 88 MCG Tab PO SCH (08:56)
[2017-01-24] MEDS: amLODIPine 5 MG Tab PO SCH (08:57)
[2017-01-24] MEDS: Pantoprazole 40 MG Tab.CR PO SCH ×2 (08:57→20:09)
[2017-01-24] MEDS: Enoxaparin 40 MG/0.4 ML Syringe SUBCUT SCH (08:57)
[2017-01-24] MEDS: Atenolol 25 MG Tab PO SCH (08:57)
[2017-01-24] MEDS: cloZAPine 100 MG Tab PO SCH ×3 (08:57→20:07)
[2017-01-24] MEDS: Bisacodyl 10 MG Supp RECTAL SCH (08:58)
--- NOTE | 2017-01-24 11:32 | CR ---
Abdomen: Supine and upright views of the abdomen were obtained. Comparison: Previous abdominal x-ray of 01/22/17. Mildly prominent gas-filled loops of small bowel are seen with air-fluid levels. There is also air-fluid level being seen within a slightly dilated splenic flexure which is felt to be incidental. Phleboliths are seen within the pelvis. Bony structures are unremarkable. Impression: 1. Slightly dilated loops of small bowel with air-fluid levels. These findings are slightly improved from previous exam. 2. Slightly dilated splenic flexure with air-fluid levels which is felt to be incidental. Diagnostic code #3
[2017-01-24] MEDS: NS + KCl 20mEq/L 1,000 ML IV SCH (15:39)
[2017-01-24] MEDS ORDERED: Potassium Chloride 10% 20 MEQ/15 ML Soln 15 ML UD Cup PO ONE (16:26)
--- NOTE | 2017-01-24 16:28 | PCM.PN ---
- General Info Date of Service: 01/24/17 Functional Status: Reports: Pain Controlled - Review of Systems General: Reports: Weakness HEENT: Reports: No Symptoms Pulmonary: Reports: No Symptoms Cardiovascular: Reports: No Symptoms Gastrointestinal: Reports: No Symptoms Genitourinary: Reports: No Symptoms Musculoskeletal: Reports: No Symptoms Skin: Reports: No Symptoms Neurological: Reports: No Symptoms Psychiatric: Reports: No Symptoms - Patient Data Vitals - Most Recent: Last Vital Signs Temp 36.9 C 01/24/17 08:08 Pulse 82 01/24/17 08:57 Resp 16 01/24/17 08:08 BP 147/78 H 01/24/17 08:57 Pulse Ox 97 01/24/17 08:08 Weight - Most Recent: 71.866 kg I&O - Last 24 Hours: Intake & Output 01/24/17 01/24/17 01/24/17 06:59 14:59 22:59 Intake Total 1387 Output Total 300 Balance 1087 Lab Results Last 24 Hours: Laboratory Results - last 24 hr 01/24/17 01/24/17 01/24/17 Range/Units 06:35 06:35 06:35 WBC 12.57 H (3.98-10.04) K/mm3 RBC 3.17 L (3.98-5.22) M/mm3 Hgb 8.9 L (11.2-15.7) gm/L Hct 26.9 L (34.1-44.9) % MCV 84.9 (79.4-94.8) fl MCH 28.1 (25.6-32.2) pg MCHC 33.1 (32.2-35.5) g/dl RDW Std Deviation 48.7 H (36.4-46.3) fL Plt Count 378 H (182-369) K/mm3 MPV 8.0 L (9.4-12.3) fl Neut % (Auto) 62.9 (34.0-71.1) % Lymph % (Auto) 12.1 L (19.3-51.7) % [place] % (Auto) 15.8 H (4.7-12.5) % Eos % (Auto) 2.2 (0.7-5.8) Baso % (Auto) 1.4 H (0.1-1.2) % Neut # (Auto) 7.91 H (1.56-6.13) K/mm3 Lymph # (Auto) 1.52 (1.18-3.74) K/mm3 [place] # (Auto) 1.98 H (0.24-0.36) K/mm3 Eos # (Auto) 0.28 (0.04-0.36) K/mm3 Baso # (Auto) 0.18 H (0.01-0.08) K/mm3 Manual Slide Review Abnormal smear Sodium 136 (136-145) mEq/L Potassium 3.0 L (3.5-5.1) mEq/L Chloride 105 (98-107) mEq/L Carbon Dioxide 19 L (21-32) mEq/L Anion Gap 15.0 (5-15) BUN 3 L (7-18) mg/dL Creatinine 0.7 (0.55-1.02) mg/dL Est Cr Clr Drug Dosing 75.94 mL/min Estimated GFR (MDRD) > 60 (>60) mL/min BUN/Creatinine Ratio 4.3 L (14-18) Glucose 151 H (80-115) mg/dL Lactic Acid 0.9 (0.4-2.0) mmol/L Calcium 7.6 L (8.5-10.1) mg/dL Magnesium 1.8 (1.8-2.4) mg/dl C-Reactive Protein 3.5 H* (<1.0) mg/dL Med Orders - Current: Current Medications Amlodipine Besylate (Norvasc) 2.5 mg PO DAILY [facility] Last Admin: 01/24/17 08:57 Dose: 2.5 mg Atenolol (Tenormin) 25 mg PO DAILY [facility] Last Admin: 01/24/17 08:57 Dose: 25 mg Bisacodyl (Dulcolax) 10 mg RECTAL DAILY [facility] Last Admin: 01/24/17 08:58 Dose: Not Given Clozapine (Clozapine) 350 mg PO BEDTIME [facility] Last Admin: 01/23/17 21:22 Dose: 350 mg Clozapine (Clozapine) 200 mg PO BID@0800,1400 [facility] Last Admin: 01/24/17 13:24 Dose: 200 mg Enoxaparin Sodium (Lovenox) 40 mg SUBCUT DAILY [facility] Last Admin: 01/24/17 08:57 Dose: 40 mg Dextrose/Sodium Chloride (Dextrose 5%-Normal Saline) 1,000 mls @ 100 mls/hr IV ASDIRECTED [facility] Last Admin: 01/24/17 06:40 Dose: 100 mls/hr Potassium Chloride/Sodium Chloride (Normal Saline With 20 Meq Kcl) 1,000 mls @ 75 mls/hr IV ASDIRECTED [facility] Last Admin: 01/24/17 15:39 Dose: 75 mls/hr Levothyroxine Sodium (Synthroid) 88 mcg PO DAILY [facility] Last Admin: 01/24/17 08:56 Dose: 88 mcg Lorazepam (Ativan) 0.5 mg PO TID PRN PRN Reason: Anxiety Morphine Sulfate (Morphine) 0.5 mg IVPUSH Q4H PRN PRN Reason: Pain (moderate 4-6) Ondansetron HCl (Zofran) 4 mg IVPUSH Q8H PRN PRN Reason: Nausea/Vomiting Pantoprazole Sodium (Protonix) 40 mg PO Q12H [facility] Last Admin: 01/24/17 08:57 Dose: 40 mg Saccharomyces Boulardii (Florastor) 250 mg PO BID [facility] Last Admin: 01/24/17 08:56 Dose: 250 mg Discontinued Medications Clozapine (Clozapine) 200 mg PO BID [facility] Clozapine (Clozapine) 200 mg PO ONETIME ONE Stop: 01/20/17 14:46 Last Admin: 01/20/17 14:54 Dose: 200 mg Diatrizoate Meglum/Diatrizoate Sod (Gastrografin 37%) 90 ml PO ONETIME ONE Stop: 01/20/17 01:06 Last Admin: 01/20/17 01:29 Dose: 90 ml Enoxaparin Sodium (Lovenox) 30 mg SUBCUT DAILY [facility] Last Admin: 01/21/17 08:35 Dose: 30 mg Enoxaparin Sodium (Lovenox) 40 mg SUBCUT DAILY [facility] Last Admin: 01/21/17 10:11 Dose: Not Given Sodium Chloride (Normal Saline) 1,000 mls @ 500 mls/hr IV ASDIRECTED [facility] Last Admin: 01/19/17 22:38 Dose: 500 mls/hr Sodium Chloride (Normal Saline) 1,000 mls @ 125 mls/hr IV ASDIRECTED [facility] Last Admin: 01/20/17 03:52 Dose: 125 mls/hr Sodium Chloride (Normal Saline) 1,000 mls @ 999 mls/hr IV ONETIME ONE Stop: 01/20/17 11:44 Last Admin: 01/20/17 11:38 Dose: 999 mls/hr Sodium Chloride (Normal Saline) 1,000 mls @ 150 mls/hr IV ASDIRECTED [facility] Last Admin: 01/21/17 10:09 Dose: 150 mls/hr Piperacillin Sod/Tazobactam (Sod 4.5 gm/ Sodium Chloride) 100 mls @ 25 mls/hr IV Q8H [facility] Last Admin: 01/23/17 12:22 Dose: 25 mls/hr Piperacillin Sod/Tazobactam (Sod 4.5 gm/ Sodium Chloride) 100 mls @ 200 mls/hr IV ONETIME ONE Stop: 01/20/17 20:29 Last Admin: 01/20/17 20:35 Dose: 200 mls/hr Metronidazole 500 mg/ Premix 100 mls @ 100 mls/hr IV Q8H [facility] Last Admin: 01/23/17 11:11 Dose: 100 mls/hr Magnesium Sulfate 2 gm/ Premix 50 mls @ 25 mls/hr IV ONETIME ONE Stop: 01/21/17 11:14 Last Admin: 01/21/17 10:09 Dose: 25 mls/hr Potassium Chloride/Sodium Chloride (1/2 Ns With 20 Meq Kcl) 1,000 mls @ 125 mls /hr IV ASDIRECTED [facility] Last Admin: 01/22/17 21:44 Dose: 125 mls/hr Magnesium Sulfate 2 gm/ Premix 50 mls @ 25 mls/hr IV ONETIME ONE Stop: 01/23/17 10:17 Last Admin: 01/23/17 09:21 Dose: 25 mls/hr Lidocaine HCl (Xylocaine 2% Jelly) Confirm Administered Dose 10 ml .ROUTE .STK- MED ONE Stop: 01/20/17 02:03 Last Admin: 01/20/17 02:22 Dose: Not Given Lidocaine HCl (Xylocaine 2% Jelly) 10 ml MUCMEM ONETIME ONE Stop: 01/20/17 02:21 Last Admin: 01/20/17 02:22 Dose: 10 ml Lorazepam (Ativan) 0.5 mg IVPUSH Q8H [facility] Last Admin: 01/20/17 14:19 Dose: Not Given Lorazepam (Ativan) 0.5 mg IVPUSH Q8H PRN PRN Reason: Anxiety Last Admin: 01/21/17 20:13 Dose: 0.5 mg Non-Formulary Medication (Nf Drug) 0 each PO DAILY [facility] Ondansetron HCl (Zofran) 4 mg IVPUSH ONETIME ONE Stop: 01/20/17 00:05 Last Admin: 01/20/17 00:13 Dose: 4 mg Pantoprazole Sodium (Protonix Iv) 40 mg IVPUSH ONETIME ONE Stop: 01/19/17 22:30 Last Admin: 01/19/17 22:38 Dose: 40 mg Pantoprazole Sodium (Protonix Iv) 40 mg IVPUSH ACBRK [facility] Last Admin: 01/20/17 06:42 Dose: 40 mg Pantoprazole Sodium (Protonix Iv) 40 mg IVPUSH Q12H [facility] Last Admin: 01/21/17 06:11 Dose: 40 mg Pantoprazole Sodium (Protonix Iv) 40 mg IVPUSH Q12H [facility] Last Admin: 01/23/17 08:15 Dose: 40 mg - Exam Quality Assessment: DVT Prophylaxis General: Alert, Oriented HEENT: Pupils Equal, Pupils Reactive Neck: Supple Lungs: Normal Respiratory Effort Cardiovascular: Regular Rate GI/Abdominal Exam: Normal Bowel Sounds, Soft, Non-Tender, No Distention (Female) Exam: Deferred Back Exam: Normal Inspection Extremities: Normal Inspection Skin: Warm Neurological: No New Focal Deficit Psy/Mental Status: Alert - Problem List & Annotations (1) Dehydration SNOMED Code(s): 37317963 Code(s): E86.0 - DEHYDRATION Status: Acute Priority: High Current Visit : Yes (2) Schizophrenia SNOMED Code(s): 61155499 Code(s): F20.9 - SCHIZOPHRENIA, UNSPECIFIED Status: Chronic Priority: Medium Current Visit: Yes Qualifiers: Schizophrenia type: unspecified Qualified Code(s): F20.9 - Schizophrenia, unspecified (3) Small bowel obstruction due to adhesions SNOMED Code(s): 152826696 Code(s): K56.5 - INTESTINAL ADHESIONS W OBST (POSTPROCEDURAL) (POSTINFECTION ) Status: Acute Current Visit: Yes (4) Pneumonia SNOMED Code(s): 349660254 Code(s): J18.9 - PNEUMONIA, UNSPECIFIED ORGANISM Status: Acute Current Visit: Yes - Problem List Review Problem List Initiated/Reviewed/Updated: Yes - My Orders Last 24 Hours: My Active Orders 01/23/17 21:00 Pantoprazole [ProTONIX] 40 mg PO Q12H - Plan Plan:: SBO, previous episode March 2016- resolved with medical management at that time. Cont with medical management as is slowly improving. -General Surgery, Dr. Barrera following -Abd xray with improvements noted this morning -IV abx and probiotic as below -NGT--clamped -NPO -IVF, antiemetics, analgesics PRN -Patient refusing ambulation and now this am refusing suppository ordered per Dr. Barrera; long discussion with her re: following recommendations regarding medical management, best outcomes possible Hemoccult positve stool Possible past medical history of Colitis -IV abx as below Query Aspiration PNA -Treating with zosyn IV and flagyl IV, probiotic----CXR clear from aspiration PNA standpoint today- will DC abx. Cont florastor. History of Schizophrenia -cont home meds -Has supervisor case loading, [employer], that can be called if needed for behavioral concerns Electrolyte abnormalities -Hypokalemia--via IVF/NGT route for replacement -Hypomagnesemia -Replete and monitor daily Dehydration -IVF rehydration--change to D5NS today -Labs daily to follow Other: DVT/GI prophylaxis CM/SW for assist with DC planning, supervisor case loading is aware of admission and willing to come for assist if needed. Patient is Full Code status- LOS may be >96 hours due to longer than expected course of SBO with medical management, watchful waiting, General Surgery also following. ADDENDUM (01/23/17) Patients's POA is reportedly terminal with minimal availability except by phone ; a niece is attempting to assist with the patient's needs. A brief discussion occurred regarding the SBO/NGT, etc. The family wishes to have a EGD /Colonoscopy which was refused last year by the patient who did not keep the scheduled procedure. As discussed, the final decision is by the general surgeon , however, it is not the primary focus of this admission. This was explained in detail; also SBO treatment was clarified: NGT, conservative mgt cf surgery; additionally how the diet is advanced was covered. A total of 15 minutes was used for the family conference.
[2017-01-24] MEDS ORDERED: LORazepam 0.5 MG Tab PO SCH (18:00)
[2017-01-24] MEDS ORDERED: Magnesium Sulfate/Water 2 GM in Premix Bag 1 BAG IV ONE (20:07)
[2017-01-24] MEDS: LORazepam 0.5 MG Tab PO SCH (20:08)
[2017-01-25] MEDS: NS + KCl 20mEq/L 1,000 ML IV SCH (05:31)
[2017-01-25] MEDS ORDERED: Sodium Chloride 0.9% 10 ML Syringe FLUSH PRN (07:36)
--- NOTE | 2017-01-25 07:40 | PCM.CONSN ---
- General Info Date of Service: 01/25/17 Functional Status: Reports: Pain Controlled, Tolerating Diet, Urinating - Review of Systems Gastrointestinal: Reports: Diarrhea (Watery and frequent), Flatus (More frequent ) - Patient Data Vitals - Most Recent: Last Vital Signs Temp 36.6 C 01/25/17 03:48 Pulse 93 01/25/17 03:48 Resp 16 01/25/17 03:48 BP 126/79 01/25/17 03:48 Pulse Ox 99 01/25/17 03:48 Weight - Most Recent: 72.892 kg I&O - Last 24 Hours: Intake & Output 01/24/17 01/25/17 01/25/17 22:59 06:59 14:59 Intake Total 1230 1603 Output Total 1100 Balance 1230 503 Lab Results Last 24 Hours: Laboratory Results - last 24 hr 01/24/17 01/24/17 01/24/17 Range/Units 06:35 06:35 06:35 Manual Slide Review Abnormal smear Sodium 136 (136-145) mEq/L Potassium 3.0 L (3.5-5.1) mEq/L Chloride 105 (98-107) mEq/L Carbon Dioxide 19 L (21-32) mEq/L Anion Gap 15.0 (5-15) BUN 3 L (7-18) mg/dL Creatinine 0.7 (0.55-1.02) mg/dL Est Cr Clr Drug Dosing 75.94 mL/min Estimated GFR (MDRD) > 60 (>60) mL/min BUN/Creatinine Ratio 4.3 L (14-18) Glucose 151 H (80-115) mg/dL Lactic Acid 0.9 (0.4-2.0) mmol/L Calcium 7.6 L (8.5-10.1) mg/dL Magnesium 1.8 (1.8-2.4) mg/dl C-Reactive Protein 3.5 H* (<1.0) mg/dL Med Orders - Current: Current Medications Amlodipine Besylate (Norvasc) 2.5 mg PO DAILY [facility] Last Admin: 01/24/17 08:57 Dose: 2.5 mg Atenolol (Tenormin) 25 mg PO DAILY [facility] Last Admin: 01/24/17 08:57 Dose: 25 mg Bisacodyl (Dulcolax) 10 mg RECTAL DAILY [facility] Last Admin: 01/24/17 08:58 Dose: Not Given Clozapine (Clozapine) 350 mg PO BEDTIME [facility] Last Admin: 01/24/17 20:07 Dose: 350 mg Clozapine (Clozapine) 200 mg PO BID@0800,1400 [facility] Last Admin: 01/24/17 13:24 Dose: 200 mg Enoxaparin Sodium (Lovenox) 40 mg SUBCUT DAILY [facility] Last Admin: 01/24/17 08:57 Dose: 40 mg Potassium Chloride/Sodium Chloride (Normal Saline With 20 Meq Kcl) 1,000 mls @ 75 mls/hr IV ASDIRECTED [facility] Last Admin: 01/25/17 05:31 Dose: 75 mls/hr Levothyroxine Sodium (Synthroid) 88 mcg PO DAILY [facility] Last Admin: 01/24/17 08:56 Dose: 88 mcg Lorazepam (Ativan) 0.5 mg PO TID [facility] Last Admin: 01/24/17 20:08 Dose: 0.5 mg Morphine Sulfate (Morphine) 0.5 mg IVPUSH Q4H PRN PRN Reason: Pain (moderate 4-6) Ondansetron HCl (Zofran) 4 mg IVPUSH Q8H PRN PRN Reason: Nausea/Vomiting Pantoprazole Sodium (Protonix) 40 mg PO Q12H [facility] Last Admin: 01/24/17 20:09 Dose: 40 mg Potassium Chloride (Potassium Chloride) 40 meq PO ONETIME ONE Stop: 01/25/17 08:01 Saccharomyces Boulardii (Florastor) 250 mg PO BID [facility] Last Admin: 01/24/17 20:09 Dose: 250 mg Discontinued Medications Clozapine (Clozapine) 200 mg PO BID [facility] Clozapine (Clozapine) 200 mg PO ONETIME ONE Stop: 01/20/17 14:46 Last Admin: 01/20/17 14:54 Dose: 200 mg Diatrizoate Meglum/Diatrizoate Sod (Gastrografin 37%) 90 ml PO ONETIME ONE Stop: 01/20/17 01:06 Last Admin: 01/20/17 01:29 Dose: 90 ml Enoxaparin Sodium (Lovenox) 30 mg SUBCUT DAILY [facility] Last Admin: 01/21/17 08:35 Dose: 30 mg Enoxaparin Sodium (Lovenox) 40 mg SUBCUT DAILY [facility] Last Admin: 01/21/17 10:11 Dose: Not Given Sodium Chloride (Normal Saline) 1,000 mls @ 500 mls/hr IV ASDIRECTED [facility] Last Admin: 01/19/17 22:38 Dose: 500 mls/hr Sodium Chloride (Normal Saline) 1,000 mls @ 125 mls/hr IV ASDIRECTED [facility] Last Admin: 01/20/17 03:52 Dose: 125 mls/hr Sodium Chloride (Normal Saline) 1,000 mls @ 999 mls/hr IV ONETIME ONE Stop: 01/20/17 11:44 Last Admin: 01/20/17 11:38 Dose: 999 mls/hr Sodium Chloride (Normal Saline) 1,000 mls @ 150 mls/hr IV ASDIRECTED [facility] Last Admin: 01/21/17 10:09 Dose: 150 mls/hr Piperacillin Sod/Tazobactam (Sod 4.5 gm/ Sodium Chloride) 100 mls @ 25 mls/hr IV Q8H [facility] Last Admin: 01/23/17 12:22 Dose: 25 mls/hr Piperacillin Sod/Tazobactam (Sod 4.5 gm/ Sodium Chloride) 100 mls @ 200 mls/hr IV ONETIME ONE Stop: 01/20/17 20:29 Last Admin: 01/20/17 20:35 Dose: 200 mls/hr Metronidazole 500 mg/ Premix 100 mls @ 100 mls/hr IV Q8H [facility] Last Admin: 01/23/17 11:11 Dose: 100 mls/hr Magnesium Sulfate 2 gm/ Premix 50 mls @ 25 mls/hr IV ONETIME ONE Stop: 01/21/17 11:14 Last Admin: 01/21/17 10:09 Dose: 25 mls/hr Potassium Chloride/Sodium Chloride (1/2 Ns With 20 Meq Kcl) 1,000 mls @ 125 mls /hr IV ASDIRECTED [facility] Last Admin: 01/22/17 21:44 Dose: 125 mls/hr Dextrose/Sodium Chloride (Dextrose 5%-Normal Saline) 1,000 mls @ 100 mls/hr IV ASDIRECTED [facility] Last Admin: 01/24/17 06:40 Dose: 100 mls/hr Magnesium Sulfate 2 gm/ Premix 50 mls @ 25 mls/hr IV ONETIME ONE Stop: 01/23/17 10:17 Last Admin: 01/23/17 09:21 Dose: 25 mls/hr Magnesium Sulfate 2 gm/ Premix 50 mls @ 25 mls/hr IV ONETIME ONE Stop: 01/24/17 22:06 Last Admin: 01/24/17 20:26 Dose: 25 mls/hr Lidocaine HCl (Xylocaine 2% Jelly) Confirm Administered Dose 10 ml .ROUTE .STK- MED ONE Stop: 01/20/17 02:03 Last Admin: 01/20/17 02:22 Dose: Not Given Lidocaine HCl (Xylocaine 2% Jelly) 10 ml MUCMEM ONETIME ONE Stop: 01/20/17 02:21 Last Admin: 01/20/17 02:22 Dose: 10 ml Lorazepam (Ativan) 0.5 mg IVPUSH Q8H [facility] Last Admin: 01/20/17 14:19 Dose: Not Given Lorazepam (Ativan) 0.5 mg IVPUSH Q8H PRN PRN Reason: Anxiety Last Admin: 01/21/17 20:13 Dose: 0.5 mg Lorazepam (Ativan) 0.5 mg PO TID PRN PRN Reason: Anxiety Lorazepam (Ativan) 0.5 mg PO TID [facility] Last Admin: 01/24/17 18:02 Dose: Not Given Non-Formulary Medication (Nf Drug) 0 each PO DAILY [facility] Ondansetron HCl (Zofran) 4 mg IVPUSH ONETIME ONE Stop: 01/20/17 00:05 Last Admin: 01/20/17 00:13 Dose: 4 mg Pantoprazole Sodium (Protonix Iv) 40 mg IVPUSH ONETIME ONE Stop: 01/19/17 22:30 Last Admin: 01/19/17 22:38 Dose: 40 mg Pantoprazole Sodium (Protonix Iv) 40 mg IVPUSH ACBRK [facility] Last Admin: 01/20/17 06:42 Dose: 40 mg Pantoprazole Sodium (Protonix Iv) 40 mg IVPUSH Q12H [facility] Last Admin: 01/21/17 06:11 Dose: 40 mg Pantoprazole Sodium (Protonix Iv) 40 mg IVPUSH Q12H [facility] Last Admin: 01/23/17 08:15 Dose: 40 mg Potassium Chloride (Potassium Chloride Solution) 40 meq PO ONETIME ONE Stop: 01/24/17 16:27 Last Admin: 01/24/17 17:28 Dose: 40 meq - Exam GI/Abdominal Exam: Soft, Non-Tender, Distended (Much less distended than yesterday) Consult PN Assessment/Plan Procedures: Procedures ASSAY OF AMYLASE (04/13/16) ASSAY OF FREE THYROXINE (04/13/16) ASSAY OF LACTIC ACID (04/13/16) ASSAY OF LIPASE (04/13/16) ASSAY OF MAGNESIUM (04/13/16) ASSAY OF PHOSPHORUS (04/13/16) ASSAY THYROID STIM HORMONE (04/13/16) C DIFF AMPLIFIED PROBE (04/13/16) C-REACTIVE PROTEIN (04/13/16) CHEST X-RAY 1 VIEW FRONTAL (04/13/16) COMPLETE CBC W/AUTO DIFF WBC (04/13/16) COMPREHEN METABOLIC PANEL (04/13/16) CT ABD & PELV W/CONTRAST (04/13/16) DRUG ASSAY CLOZAPINE (04/13/16) EMERGENCY DEPT VISIT (04/13/16) EMERGENCY DEPT VISIT (08/15/14) EVALUATE SWALLOWING FUNCTION (11/26/13) HPYLORI STOOL IA (04/13/16) HYDRATE IV INFUSION ADD-ON (04/13/16) INSERT PICC CATH (04/13/16) LACTATE (LD) (LDH) ENZYME (04/13/16) METABOLIC PANEL TOTAL CA (04/13/16) OCCULT BLD FECES 1-3 TESTS (04/13/16) OT EVALUATION (04/13/16) PT EVALUATION (04/13/16) RBC SED RATE AUTOMATED (04/13/16) ROUTINE VENIPUNCTURE (04/13/16) STOOL CULTR AEROBIC BACT EA (04/13/16) THER/PROPH/DIAG INJ IV PUSH (04/13/16) THER/PROPH/DIAG IV INF INIT (08/15/14) THERAPEUTIC ACTIVITIES (04/13/16) TX/PRO/DX INJ NEW DRUG ADDON (08/15/14) URINALYSIS AUTO W/SCOPE (04/13/16) URINE CULTURE/COLONY COUNT (04/13/16) VANOMYCIN DNA AMP PROBE (04/13/16) VITAMIN D 25 HYDROXY (04/13/16) X-RAY EXAM OF ABDOMEN (04/13/16) X-RAY EXAM OF ABDOMEN (04/13/16) X-RAY EXAM SERIES ABDOMEN (04/13/16) Problem List Initiated/Reviewed/Updated: Yes My Orders Last 24 Hours: My Active Orders 01/24/17 15:00 NS + KCl 20mEq/L [Normal Saline with 20 mEq KCl] 1,000 ml IV ASDIRECTED 01/24/17 Breakfast Clear Liquid Diet [DIET] 01/25/17 07:36 Communication Order [RC] ROUTINE Sodium Chloride 0.9% [Saline Flush] 10 ml FLUSH ASDIRECTED PRN Convert IV to Saline Lock [OM.PC] Routine 01/25/17 Lunch Full Liquid Diet [DIET] imp: High-grade partial small bowel reduction now resolved with patient passing watery stools and gas frequently. Will need potassium supplementation in order to manage the adynamic ileus component. plan: Advance diet and replace potassium. Magnesium will continue to be followed.
[2017-01-25] MEDS ORDERED: Potassium Chloride 10% 20 MEQ/15 ML Soln 30 ML UD Cup PO ONE (08:00)
[2017-01-25] MEDS: Pantoprazole 40 MG Tab.CR PO SCH ×2 (08:21→21:48)
[2017-01-25] MEDS: Atenolol 25 MG Tab PO SCH (08:21)
[2017-01-25] MEDS: Saccharomyces Boulardii (Probiotic) 250 MG Cap PO SCH ×2 (08:21→21:48)
[2017-01-25] MEDS: LORazepam 0.5 MG Tab PO SCH ×3 (08:24→21:47)
[2017-01-25] MEDS: Enoxaparin 40 MG/0.4 ML Syringe SUBCUT SCH (08:24)
[2017-01-25] MEDS: amLODIPine 5 MG Tab PO SCH (08:24)
[2017-01-25] MEDS: Levothyroxine 88 MCG Tab PO SCH (08:24)
[2017-01-25] MEDS: Bisacodyl 10 MG Supp RECTAL SCH (08:29)
[2017-01-25] MEDS: cloZAPine 100 MG Tab PO SCH ×3 (08:29→21:46)
[2017-01-25] MEDS: Potassium Chloride 10% 20 MEQ/15 ML Soln 30 ML UD Cup PO SCH ×2 (11:50→21:48)
--- NOTE | 2017-01-25 12:39 | PCM.PN ---
- General Info Date of Service: 01/25/17 Functional Status: Reports: Pain Controlled, Tolerating Diet, Ambulating - Review of Systems General: Reports: No Symptoms HEENT: Reports: No Symptoms Pulmonary: Reports: No Symptoms Cardiovascular: Reports: No Symptoms Gastrointestinal: Reports: No Symptoms Genitourinary: Reports: No Symptoms Musculoskeletal: Reports: No Symptoms Skin: Reports: No Symptoms Neurological: Reports: No Symptoms Psychiatric: Reports: No Symptoms - Patient Data Vitals - Most Recent: Last Vital Signs Temp 36.6 C 01/25/17 03:48 Pulse 94 01/25/17 08:21 Resp 16 01/25/17 03:48 BP 119/72 01/25/17 08:24 Pulse Ox 99 01/25/17 03:48 Weight - Most Recent: 72.892 kg I&O - Last 24 Hours: Intake & Output 01/24/17 01/25/17 01/25/17 22:59 06:59 14:59 Intake Total 1230 1603 520 Output Total 1100 Balance 1230 503 520 Lab Results Last 24 Hours: Laboratory Results - last 24 hr 01/25/17 01/25/17 Range/Units 08:20 08:20 Sodium 132 L (136-145) mEq/L Potassium 3.0 L (3.5-5.1) mEq/L Chloride 102 (98-107) mEq/L Carbon Dioxide 21 (21-32) mEq/L Anion Gap 12.0 (5-15) BUN 1 L (7-18) mg/dL Creatinine 0.8 (0.55-1.02) mg/dL Est Cr Clr Drug Dosing 66.45 mL/min Estimated GFR (MDRD) > 60 (>60) mL/min BUN/Creatinine Ratio 1.3 L (14-18) Glucose 190 H (80-115) mg/dL Calcium 8.0 L (8.5-10.1) mg/dL Magnesium 1.9 (1.8-2.4) mg/dl Med Orders - Current: Current Medications Amlodipine Besylate (Norvasc) 2.5 mg PO DAILY [facility] Last Admin: 01/25/17 08:24 Dose: 2.5 mg Atenolol (Tenormin) 25 mg PO DAILY [facility] Last Admin: 01/25/17 08:21 Dose: 25 mg Bisacodyl (Dulcolax) 10 mg RECTAL DAILY [facility] Last Admin: 01/25/17 08:29 Dose: Not Given Clozapine (Clozapine) 350 mg PO BEDTIME [facility] Last Admin: 01/24/17 20:07 Dose: 350 mg Clozapine (Clozapine) 200 mg PO BID@0800,1400 [facility] Last Admin: 01/25/17 08:29 Dose: 200 mg Enoxaparin Sodium (Lovenox) 40 mg SUBCUT DAILY [facility] Last Admin: 01/25/17 08:24 Dose: 40 mg Levothyroxine Sodium (Synthroid) 88 mcg PO DAILY [facility] Last Admin: 01/25/17 08:24 Dose: 88 mcg Lorazepam (Ativan) 0.5 mg PO TID [facility] Last Admin: 01/25/17 08:24 Dose: 0.5 mg Morphine Sulfate (Morphine) 0.5 mg IVPUSH Q4H PRN PRN Reason: Pain (moderate 4-6) Ondansetron HCl (Zofran) 4 mg IVPUSH Q8H PRN PRN Reason: Nausea/Vomiting Pantoprazole Sodium (Protonix) 40 mg PO Q12H [facility] Last Admin: 01/25/17 08:21 Dose: 40 mg Potassium Chloride (Potassium Chloride) 40 meq PO BID [facility] Stop: 01/26/17 21:01 Last Admin: 01/25/17 11:50 Dose: 40 meq Saccharomyces Boulardii (Florastor) 250 mg PO BID [facility] Last Admin: 01/25/17 08:21 Dose: 250 mg Sodium Chloride (Saline Flush) 10 ml FLUSH ASDIRECTED PRN PRN Reason: Keep Vein Open Discontinued Medications Clozapine (Clozapine) 200 mg PO BID [facility] Clozapine (Clozapine) 200 mg PO ONETIME ONE Stop: 01/20/17 14:46 Last Admin: 01/20/17 14:54 Dose: 200 mg Diatrizoate Meglum/Diatrizoate Sod (Gastrografin 37%) 90 ml PO ONETIME ONE Stop: 01/20/17 01:06 Last Admin: 01/20/17 01:29 Dose: 90 ml Enoxaparin Sodium (Lovenox) 30 mg SUBCUT DAILY [facility] Last Admin: 01/21/17 08:35 Dose: 30 mg Enoxaparin Sodium (Lovenox) 40 mg SUBCUT DAILY [facility] Last Admin: 01/21/17 10:11 Dose: Not Given Sodium Chloride (Normal Saline) 1,000 mls @ 500 mls/hr IV ASDIRECTED [facility] Last Admin: 01/19/17 22:38 Dose: 500 mls/hr Sodium Chloride (Normal Saline) 1,000 mls @ 125 mls/hr IV ASDIRECTED [facility] Last Admin: 01/20/17 03:52 Dose: 125 mls/hr Sodium Chloride (Normal Saline) 1,000 mls @ 999 mls/hr IV ONETIME ONE Stop: 01/20/17 11:44 Last Admin: 01/20/17 11:38 Dose: 999 mls/hr Sodium Chloride (Normal Saline) 1,000 mls @ 150 [facility] Admin: 01/21/17 10:09 Dose: 150 mls/hr Piperacillin Sod/Tazobactam (Sod 4.5 gm/ Sodium Chloride) 100 mls @ 25 mls/hr IV Q8H [facility] Last Admin: 01/23/17 12:22 Dose: 25 mls/hr Piperacillin Sod/Tazobactam (Sod 4.5 gm/ Sodium Chloride) 100 mls @ 200 mls/hr IV ONETIME ONE Stop: 01/20/17 20:29 Last Admin: 01/20/17 20:35 Dose: 200 mls/hr Metronidazole 500 mg/ Premix 100 mls @ 100 mls/hr IV Q8H [facility] Last Admin: 01/23/17 11:11 Dose: 100 mls/hr Magnesium Sulfate 2 gm/ Premix 50 mls @ 25 mls/hr IV ONETIME ONE Stop: 01/21/17 11:14 Last Admin: 01/21/17 10:09 Dose: 25 mls/hr Potassium Chloride/Sodium Chloride (1/2 Ns With 20 Meq Kcl) 1,000 mls @ 125 mls /hr IV ASDIRECTED [facility] Last Admin: 01/22/17 21:44 Dose: 125 mls/hr Dextrose/Sodium Chloride (Dextrose 5%-Normal Saline) 1,000 mls @ 100 [facility]ls[facility] Last Admin: 01/24/17 06:40 Dose: 100 mls/hr Magnesium Sulfate 2 gm/ Premix 50 mls @ 25 mls/hr IV ONETIME ONE Stop: 01/23/17 10:17 Last Admin: 09/06/17 09:21 Dose: 25 mls/hr Potassium Chloride/Sodium Chloride (Normal Saline With 20 Meq Kcl) 1,000 mls @ 75 mls/hr IV ASDIRECTED [facility] Last Admin: 01/25/17 05:31 Dose: 75 mls/hr Magnesium Sulfate 2 gm/ Premix 50 mls @ 25 mls/hr IV ONETIME ONE Stop: 01/24/17 22:06 Last Admin: 01/24/17 20:26 Dose: 25 mls/hr Lidocaine HCl (Xylocaine 2% Jelly) Confirm Administered Dose 10 ml .ROUTE .STK- MED ONE Stop: 01/20/17 02:03 Last Admin: 01/20/17 02:22 Dose: Not Given Lidocaine HCl (Xylocaine 2% Jelly) 10 ml MUCMEM ONETIME ONE Stop: 01/20/17 02:21 Last Admin: 01/20/17 02:22 Dose: 10 ml Lorazepam (Ativan) 0.5 mg IVPUSH Q8H [facility] Last Admin: 01/20/17 14:19 Dose: Not Given Lorazepam (Ativan) 0.5 mg IVPUSH Q8H PRN PRN Reason: Anxiety Last Admin: 01/21/17 20:13 Dose: 0.5 mg Lorazepam (Ativan) 0.5 mg PO TID PRN PRN Reason: Anxiety Lorazepam (Ativan) 0.5 mg PO TID [facility] Last Admin: 01/24/17 18:02 Dose: Not Given Non-Formulary Medication (Nf Drug) 0 each PO DAILY [facility] Ondansetron HCl (Zofran) 4 mg IVPUSH ONETIME ONE Stop: 01/20/17 00:05 Last Admin: 01/20/17 00:13 Dose: 4 mg Pantoprazole Sodium (Protonix Iv) 40 mg IVPUSH ONETIME ONE Stop: 01/19/17 22:30 Last Admin: 01/19/17 22:38 Dose: 40 mg Pantoprazole Sodium (Protonix Iv) 40 mg IVPUSH ACBRK [facility] Last Admin: 01/20/17 06:42 Dose: 40 mg Pantoprazole Sodium (Protonix Iv) 40 mg IVPUSH Q12H [facility] Last Admin: 01/21/17 06:11 Dose: 40 mg Pantoprazole Sodium (Protonix Iv) 40 mg IVPUSH Q12H [facility] Last Admin: 01/23/17 08:15 Dose: 40 mg Potassium Chloride (Potassium Chloride Solution) 40 meq PO ONETIME ONE Stop: 01/24/17 16:27 Last Admin: 01/24/17 17:28 Dose: 40 meq Potassium Chloride (Potassium Chloride) 40 meq PO ONETIME ONE Stop: 01/25/17 08:01 Last Admin: 01/25/17 08:24 Dose: 40 meq - Exam Quality Assessment: DVT Prophylaxis General: Alert, Oriented, Cooperative, No Acute Distress HEENT: Pupils Equal, Pupils Reactive, EOMI Neck: Supple, Trachea Midline Lungs: Normal Respiratory Effort Cardiovascular: Regular Rate, Regular Rhythm GI/Abdominal Exam: Normal Bowel Sounds, Soft, Non-Tender, No Distention (Female) Exam: Deferred Back Exam: Normal Inspection Extremities: Normal Inspection Skin: Warm Neurological: No New Focal Deficit, Normal Gait, Normal Speech Psy/Mental Status: Alert - Problem List & Annotations (1) Dehydration SNOMED Code(s): 62697589 Code(s): E86.0 - DEHYDRATION Status: Acute Priority: High Current Visit : Yes (2) Schizophrenia SNOMED Code(s): 93775161 Code(s): F20.9 - SCHIZOPHRENIA, UNSPECIFIED Status: Chronic Priority: Medium Current Visit: Yes Qualifiers: Schizophrenia type: unspecified Qualified Code(s): F20.9 - Schizophrenia, unspecified (3) Small bowel obstruction due to adhesions SNOMED Code(s): 569776055 Code(s): K56.5 - INTESTINAL ADHESIONS W OBST (POSTPROCEDURAL) (POSTINFECTION ) Status: Acute Current Visit: Yes (4) Pneumonia SNOMED Code(s): 489643484 Code(s): J18.9 - PNEUMONIA, UNSPECIFIED ORGANISM Status: Acute Current Visit: Yes - Problem List Review Problem List Initiated/Reviewed/Updated: Yes - My Orders Last 24 Hours: My Active Orders 01/24/17 18:08 Ambulate [RC] PER UNIT ROUTINE 01/24/17 21:00 LORazepam [Ativan] 0.5 mg PO TID 01/25/17 12:00 Potassium Chloride 40 meq PO BID - Plan Plan:: SBO -General Surgery, Dr. Barrera following -Abd xray with improvements noted this morning -IV abx and probiotic as below -NGT-->pulled; clear liquids; advance as tolerated. -IVF, antiemetics, analgesics PRN -Patient refusing ambulation and now this am refusing suppository ordered per Dr. Barrera; long discussion with her re: following recommendations regarding medical management, best outcomes possible Hemoccult positve stool--Hgb stable; OP work up. Possible past medical history of Colitis -IV abx as below--DC. Query Aspiration PNA -Treating with zosyn IV and flagyl IV, probiotic----CXR clear from aspiration PNA standpoint today- will DC abx. Cont florastor. History of Schizophrenia -cont home meds -Has geriatric case manager, Digna, that can be called if needed for behavioral concerns Electrolyte abnormalities -Hypokalemia--via IVF/NGT route for replacement; additional K given. -Hypomagnesemia -Replete and monitor daily Dehydration -IVF rehydration--change to D5NS today -Labs daily to follow Other: DVT/GI prophylaxis CM/SW for assist with DC planning, geriatric case manager is aware of admission and willing to come for assist if needed. Patient is Full Code status- LOS>96 hours due to prolong need for NGT for SBO.
[2017-01-26] MEDS: Potassium Chloride 10% 20 MEQ/15 ML Soln 30 ML UD Cup PO SCH ×2 (08:53→09:02)
[2017-01-26] MEDS: Levothyroxine 88 MCG Tab PO SCH (08:54)
[2017-01-26] MEDS: amLODIPine 5 MG Tab PO SCH (08:54)
[2017-01-26] MEDS: Saccharomyces Boulardii (Probiotic) 250 MG Cap PO SCH ×2 (08:54→20:02)
[2017-01-26] MEDS: LORazepam 0.5 MG Tab PO SCH ×4 (08:54→20:03)
[2017-01-26] MEDS: Atenolol 25 MG Tab PO SCH (08:55)
[2017-01-26] MEDS: cloZAPine 100 MG Tab PO SCH ×3 (08:55→20:02)
[2017-01-26] MEDS: Bisacodyl 10 MG Supp RECTAL SCH (08:55)
[2017-01-26] MEDS: Pantoprazole 40 MG Tab.CR PO SCH ×2 (08:55→20:02)
[2017-01-26] MEDS: Enoxaparin 40 MG/0.4 ML Syringe SUBCUT SCH (08:55)
--- NOTE | 2017-01-26 09:14 | PCM.CONSN ---
- General Info Date of Service: 01/26/17 Functional Status: Reports: Tolerating Diet - Patient Data Vitals - Most Recent: Last Vital Signs Temp 36.4 C 01/26/17 03:00 Pulse 109 H 01/26/17 08:55 Resp 16 01/26/17 03:00 BP 107/57 L 01/26/17 08:55 Pulse Ox 100 01/26/17 03:00 Weight - Most Recent: 73.618 kg I&O - Last 24 Hours: Intake & Output 01/25/17 01/26/17 01/26/17 22:59 06:59 14:59 Intake Total 1918 1100 Output Total 1000 350 Balance 918 750 Lab Results Last 24 Hours: Laboratory Results - last 24 hr 01/25/17 01/25/17 Range/Units 08:20 08:20 Sodium 132 L (136-145) mEq/L Potassium 3.0 L (3.5-5.1) mEq/L Chloride 102 (98-107) mEq/L Carbon Dioxide 21 (21-32) mEq/L Anion Gap 12.0 (5-15) BUN 1 L (7-18) mg/dL Creatinine 0.8 (0.55-1.02) mg/dL Est Cr Clr Drug Dosing 66.45 mL/min Estimated GFR (MDRD) > 60 (>60) mL/min BUN/Creatinine Ratio 1.3 L (14-18) Glucose 190 H (80-115) mg/dL Calcium 8.0 L (8.5-10.1) mg/dL Magnesium 1.9 (1.8-2.4) mg/dl Med Orders - Current: Current Medications Amlodipine Besylate (Norvasc) 2.5 mg PO DAILY [facility] Last Admin: 01/26/17 08:54 Dose: 2.5 mg Atenolol (Tenormin) 25 mg PO DAILY [facility] Last Admin: 01/26/17 08:55 Dose: 25 mg Bisacodyl (Dulcolax) 10 mg RECTAL DAILY [facility] Last Admin: 01/26/17 08:55 Dose: Not Given Clozapine (Clozapine) 350 mg PO BEDTIME [facility] Last Admin: 01/25/17 21:46 Dose: 350 mg Clozapine (Clozapine) 200 mg PO BID@0800,1400 [facility] Last Admin: 01/26/17 08:55 Dose: 200 mg Enoxaparin Sodium (Lovenox) 40 mg SUBCUT DAILY [facility] Last Admin: 01/26/17 08:55 Dose: 40 mg Levothyroxine Sodium (Synthroid) 88 mcg PO DAILY [facility] Last Admin: 01/26/17 08:54 Dose: 88 mcg Lorazepam (Ativan) 0.5 mg PO TID [facility] Last Admin: 01/26/17 08:54 Dose: 0.5 mg Morphine Sulfate (Morphine) 0.5 mg IVPUSH Q4H PRN PRN Reason: Pain (moderate 4-6) Ondansetron HCl (Zofran) 4 mg IVPUSH Q8H PRN PRN Reason: Nausea/Vomiting Pantoprazole Sodium (Protonix) 40 mg PO Q12H [facility] Last Admin: 01/26/17 08:55 Dose: 40 mg Potassium Chloride (Potassium Chloride) 40 meq PO BID [facility] Stop: 01/26/17 21:01 Last Admin: 01/26/17 09:02 Dose: Not Given Saccharomyces Boulardii (Florastor) 250 mg PO BID [facility] Last Admin: 01/26/17 08:54 Dose: 250 mg Sodium Chloride (Saline Flush) 10 ml FLUSH ASDIRECTED PRN PRN Reason: Keep Vein Open Discontinued Medications Clozapine (Clozapine) 200 mg PO BID [facility] Clozapine (Clozapine) 200 mg PO ONETIME ONE Stop: 01/20/17 14:46 Last Admin: 01/20/17 14:54 Dose: 200 mg Diatrizoate Meglum/Diatrizoate Sod (Gastrografin 37%) 90 ml PO ONETIME ONE Stop: 01/20/17 01:06 Last Admin: 01/20/17 01:29 Dose: 90 ml Enoxaparin Sodium (Lovenox) 30 mg SUBCUT DAILY [facility] Last Admin: 01/21/17 08:35 Dose: 30 mg Enoxaparin Sodium (Lovenox) 40 mg SUBCUT DAILY [facility] Last Admin: 01/21/17 10:11 Dose: Not Given Sodium Chloride (Normal Saline) 1,000 mls @ 500 mls/hr IV ASDIRECTED [facility] Last Admin: 01/19/17 22:38 Dose: 500 mls/hr Sodium Chloride (Normal Saline) 1,000 mls @ 125 mls/hr IV ASDIRECTED [facility] Last Admin: 01/20/17 03:52 Dose: 125 mls/hr Sodium Chloride (Normal Saline) 1,000 mls @ 999 mls/hr IV ONETIME ONE Stop: 01/20/17 11:44 Last Admin: 01/20/17 11:38 Dose: 999 mls/hr Sodium Chloride (Normal Saline) 1,000 [facility]ls [facility]: 01/21/17 10:09 Dose: 150 mls/hr Piperacillin Sod/Tazobactam (Sod 4.5 gm/ Sodium Chloride) 100 mls @ 25 mls/hr IV Q8H [facility] Last Admin: 01/23/17 12:22 Dose: 25 mls/hr Piperacillin Sod/Tazobactam (Sod 4.5 gm/ Sodium Chloride) 100 mls @ 200 mls/hr IV ONETIME ONE Stop: 01/20/17 20:29 Last Admin: 01/20/17 20:35 Dose: 200 mls/hr Metronidazole 500 mg/ Premix 100 mls @ 100 mls/hr IV Q8H [facility] Last Admin: 01/23/17 11:11 Dose: 100 mls/hr Magnesium Sulfate 2 gm/ Premix 50 mls @ 25 mls/hr IV ONETIME ONE Stop: 01/21/17 11:14 Last Admin: 01/21/17 10:09 Dose: 25 mls/hr Potassium Chloride/Sodium Chloride (1/2 Ns With 20 Meq Kcl) 1,000 mls @ 125 mls /[facility] Last Admin: 01/22/17 21:44 Dose: 125 mls/hr Dextrose/Sodium Chloride (Dextrose 5%-Normal Saline) 1,000 mls @ 100 [facility]ls[facility] Last Admin: 01/24/17 06:40 Dose: 100 mls/hr Magnesium Sulfate 2 gm/ Premix 50 mls @ 25 mls/hr IV ONETIME ONE Stop: 01/23/17 10:17 Last Admin: 01/23/17 09:21 Dose: 25 mls/hr Potassium Chloride/Sodium Chloride (Normal Saline With 20 Meq Kcl) 1,000 mls @ 75 [facility]ls[facility] Last Admin: 01/25/17 05:31 Dose: 75 mls/hr Magnesium Sulfate 2 gm/ Premix 50 mls @ 25 mls/hr IV ONETIME ONE Stop: 01/24/17 22:06 Last Admin: 01/24/17 20:26 Dose: 25 mls/hr Lidocaine HCl (Xylocaine 2% Jelly) Confirm Administered Dose 10 ml .ROUTE .STK- MED ONE Stop: 01/20/17 02:03 Last Admin: 01/20/17 02:22 Dose: Not Given Lidocaine HCl (Xylocaine 2% Jelly) 10 ml MUCMEM ONETIME ONE Stop: 01/20/17 02:21 Last Admin: 01/20/17 02:22 Dose: 10 ml Lorazepam (Ativan) 0.5 mg IVPUSH Q8H [facility] Last Admin: 01/20/17 14:19 Dose: Not Given Lorazepam (Ativan) 0.5 mg IVPUSH Q8H PRN PRN Reason: Anxiety Last Admin: 01/21/17 20:13 Dose: 0.5 mg Lorazepam (Ativan) 0.5 mg PO TID PRN PRN Reason: Anxiety Lorazepam (Ativan) 0.5 mg PO TID [facility] Last Admin: 01/24/17 18:02 Dose: Not Given Non-Formulary Medication (Nf Drug) 0 each PO DAILY [facility] Ondansetron HCl (Zofran) 4 mg IVPUSH ONETIME ONE Stop: 01/20/17 00:05 Last Admin: 01/20/17 00:13 Dose: 4 mg Pantoprazole Sodium (Protonix Iv) 40 mg IVPUSH ONETIME ONE Stop: 01/19/17 22:30 Last Admin: 01/19/17 22:38 Dose: 40 mg Pantoprazole Sodium (Protonix Iv) 40 mg IVPUSH ACBRK [facility] Last Admin: 01/20/17 06:42 Dose: 40 mg Pantoprazole Sodium (Protonix Iv) 40 mg IVPUSH Q12H [facility] Last Admin: 01/21/17 06:11 Dose: 40 mg Pantoprazole Sodium (Protonix Iv) 40 mg IVPUSH Q12H [facility] Last Admin: 01/23/17 08:15 Dose: 40 mg Potassium Chloride (Potassium Chloride Solution) 40 meq PO ONETIME ONE Stop: 01/24/17 16:27 Last Admin: 01/24/17 17:28 Dose: 40 meq Potassium Chloride (Potassium Chloride) 40 meq PO ONETIME ONE Stop: 01/25/17 08:01 Last Admin: 01/25/17 08:24 Dose: 40 meq - Exam GI/Abdominal Exam: Non-Tender Consult PN Assessment/Plan Procedures: Procedures ASSAY OF AMYLASE (04/13/16) ASSAY OF FREE THYROXINE (04/13/16) ASSAY OF LACTIC ACID (04/13/16) ASSAY OF LIPASE (04/13/16) ASSAY OF MAGNESIUM (04/13/16) ASSAY OF PHOSPHORUS (04/13/16) ASSAY THYROID STIM HORMONE (04/13/16) C DIFF AMPLIFIED PROBE (04/13/16) C-REACTIVE PROTEIN (04/13/16) CHEST X-RAY 1 VIEW FRONTAL (04/13/16) COMPLETE CBC W/AUTO DIFF WBC (04/13/16) COMPREHEN METABOLIC PANEL (04/13/16) CT ABD & PELV W/CONTRAST (04/13/16) DRUG ASSAY CLOZAPINE (04/13/16) EMERGENCY DEPT VISIT (04/13/16) EMERGENCY DEPT VISIT (08/15/14) EVALUATE SWALLOWING FUNCTION (11/26/13) HPYLORI STOOL IA (04/13/16) HYDRATE IV INFUSION ADD-ON (04/13/16) INSERT PICC CATH (04/13/16) LACTATE (LD) (LDH) ENZYME (04/13/16) METABOLIC PANEL TOTAL CA (04/13/16) OCCULT BLD FECES 1-3 TESTS (04/13/16) OT EVALUATION (04/13/16) PT EVALUATION (04/13/16) RBC SED RATE AUTOMATED (04/13/16) ROUTINE VENIPUNCTURE (04/13/16) STOOL CULTR AEROBIC BACT EA (04/13/16) THER/PROPH/DIAG INJ IV PUSH (04/13/16) THER/PROPH/DIAG IV INF INIT (08/15/14) THERAPEUTIC ACTIVITIES (04/13/16) TX/PRO/DX INJ NEW DRUG ADDON (08/15/14) URINALYSIS AUTO W/SCOPE (04/13/16) URINE CULTURE/COLONY COUNT (04/13/16) VANOMYCIN DNA AMP PROBE (04/13/16) VITAMIN D 25 HYDROXY (04/13/16) X-RAY EXAM OF ABDOMEN (04/13/16) X-RAY EXAM OF ABDOMEN (04/13/16) X-RAY EXAM SERIES ABDOMEN (04/13/16) Problem List Initiated/Reviewed/Updated: Yes My Orders Last 24 Hours: My Active Orders 01/25/17 14:04 Communication Order [RC] DAILY 01/26/17 Breakfast Regular Diet [DIET] Tolerating a diet and having stools with gas. We will sign off. Please consult when necessary.
--- NOTE | 2017-01-26 09:30 | PCM.PN ---
- General Info Date of Service: 01/26/17 Functional Status: Reports: Pain Controlled, Tolerating Diet, Ambulating - Review of Systems General: Reports: No Symptoms HEENT: Reports: No Symptoms Pulmonary: Reports: No Symptoms Cardiovascular: Reports: No Symptoms Gastrointestinal: Reports: No Symptoms Genitourinary: Reports: No Symptoms Musculoskeletal: Reports: No Symptoms Skin: Reports: No Symptoms Neurological: Reports: No Symptoms Psychiatric: Reports: No Symptoms - Patient Data Vitals - Most Recent: Last Vital Signs Temp 36.4 C 01/26/17 03:00 Pulse 109 H 01/26/17 08:55 Resp 16 01/26/17 03:00 BP 107/57 L 01/26/17 08:55 Pulse Ox 100 01/26/17 03:00 Weight - Most Recent: 73.618 kg I&O - Last 24 Hours: Intake & Output 01/25/17 01/26/17 01/26/17 22:59 06:59 14:59 Intake Total 1918 1100 Output Total 1000 350 Balance 918 750 Lab Results Last 24 Hours: Laboratory Results - last 24 hr 01/25/17 01/25/17 Range/Units 08:20 08:20 Sodium 132 L (136-145) mEq/L Potassium 3.0 L (3.5-5.1) mEq/L Chloride 102 (98-107) mEq/L Carbon Dioxide 21 (21-32) mEq/L Anion Gap 12.0 (5-15) BUN 1 L (7-18) mg/dL Creatinine 0.8 (0.55-1.02) mg/dL Est Cr Clr Drug Dosing 66.45 mL/min Estimated GFR (MDRD) > 60 (>60) mL/min BUN/Creatinine Ratio 1.3 L (14-18) Glucose 190 H (80-115) mg/dL Calcium 8.0 L (8.5-10.1) mg/dL Magnesium 1.9 (1.8-2.4) mg/dl Med Orders - Current: Current Medications Amlodipine Besylate (Norvasc) 2.5 mg PO DAILY [facility] Last Admin: 01/26/17 08:54 Dose: 2.5 mg Atenolol (Tenormin) 25 mg PO DAILY [facility] Last Admin: 01/26/17 08:55 Dose: 25 mg Bisacodyl (Dulcolax) 10 mg RECTAL DAILY [facility] Last Admin: 01/26/17 08:55 Dose: Not Given Clozapine (Clozapine) 350 mg PO BEDTIME [facility] Last Admin: 01/25/17 21:46 Dose: 350 mg Clozapine (Clozapine) 200 mg PO BID@0800,1400 [facility] Last Admin: 01/26/17 08:55 Dose: 200 mg Enoxaparin Sodium (Lovenox) 40 mg SUBCUT DAILY [facility] Last Admin: 01/26/17 08:55 Dose: 40 mg Levothyroxine Sodium (Synthroid) 88 mcg PO DAILY [facility] Last Admin: 01/26/17 08:54 Dose: 88 mcg Lorazepam (Ativan) 0.5 mg PO TID [facility] Last Admin: 01/26/17 08:54 Dose: 0.5 mg Morphine Sulfate (Morphine) 0.5 mg IVPUSH Q4H PRN PRN Reason: Pain (moderate 4-6) Ondansetron HCl (Zofran) 4 mg IVPUSH Q8H PRN PRN Reason: Nausea/Vomiting Pantoprazole Sodium (Protonix) 40 mg PO Q12H [facility] Last Admin: 01/26/17 08:55 Dose: 40 mg Potassium Chloride (Potassium Chloride) 40 meq PO BID [facility] Stop: 01/26/17 21:01 Last Admin: 01/26/17 09:02 Dose: Not Given Saccharomyces Boulardii (Florastor) 250 mg PO BID [facility] Last Admin: 01/26/17 08:54 Dose: 250 mg Sodium Chloride (Saline Flush) 10 ml FLUSH ASDIRECTED PRN PRN Reason: Keep Vein Open Discontinued Medications Clozapine (Clozapine) 200 mg PO BID [facility] Clozapine (Clozapine) 200 mg PO ONETIME ONE Stop: 01/20/17 14:46 Last Admin: 01/20/17 14:54 Dose: 200 mg Diatrizoate Meglum/Diatrizoate Sod (Gastrografin 37%) 90 ml PO ONETIME ONE Stop: 01/20/17 01:06 Last Admin: 01/20/17 01:29 Dose: 90 ml Enoxaparin Sodium (Lovenox) 30 mg SUBCUT DAILY [facility] Last Admin: 01/21/17 08:35 Dose: 30 mg Enoxaparin Sodium (Lovenox) 40 mg SUBCUT DAILY [facility] Last Admin: 01/21/17 10:11 Dose: Not Given Sodium Chloride (Normal Saline) 1,000 mls @ 500 mls/hr IV ASDIRECTED [facility] Last Admin: 01/19/17 22:38 Dose: 500 mls/hr Sodium Chloride (Normal Saline) 1,000 mls @ 125 mls/hr IV ASDIRECTED [facility] Last Admin: 01/20/17 03:52 Dose: 125 mls/hr Sodium Chloride (Normal Saline) 1,000 mls @ 999 mls/hr IV ONETIME ONE Stop: 01/20/17 11:44 Last Admin: 01/20/17 11:38 Dose: 999 mls/hr Sodium Chloride (Normal Saline) 1,000 mls @ [facility] Admin: 01/21/17 10:09 Dose: 150 mls/hr Piperacillin Sod/Tazobactam (Sod 4.5 gm/ Sodium Chloride) 100 mls @ 25 mls/hr IV Q8H [facility] Last Admin: 01/23/17 12:22 Dose: 25 mls/hr Piperacillin Sod/Tazobactam (Sod 4.5 gm/ Sodium Chloride) 100 mls @ 200 mls/hr IV ONETIME ONE Stop: 01/20/17 20:29 Last Admin: 01/20/17 20:35 Dose: 200 mls/hr Metronidazole 500 mg/ Premix 100 mls @ 100 mls/hr IV Q8H [facility] Last Admin: 01/23/17 11:11 Dose: 100 mls/hr Magnesium Sulfate 2 gm/ Premix 50 mls @ 25 mls/hr IV ONETIME ONE Stop: 01/21/17 11:14 Last Admin: 01/21/17 10:09 Dose: 25 mls/hr Potassium Chloride/Sodium Chloride (1/2 Ns With 20 Meq Kcl) 1,000 mls @ 125 mls /hr IV ASDIRECTED [facility] Last Admin: 01/22/17 21:44 Dose: 125 mls/hr Dextrose/Sodium Chloride (Dextrose 5%-Normal Saline) 1,000 mls @ 100 [facility] Last Admin: 01/24/17 06:40 Dose: 100 mls/hr Magnesium Sulfate 2 gm/ Premix 50 mls @ 25 mls/hr IV ONETIME ONE Stop: 01/23/17 10:17 Last Admin: 09/06/17 09:21 Dose: 25 mls/hr Potassium Chloride/Sodium Chloride (Normal Saline With 20 Meq Kcl) 1,000 mls @ 75 mls/hr IV ASDIRECTED [facility] Last Admin: 01/25/17 05:31 Dose: 75 mls/hr Magnesium Sulfate 2 gm/ Premix 50 mls @ 25 mls/hr IV ONETIME ONE Stop: 01/24/17 22:06 Last Admin: 01/24/17 20:26 Dose: 25 mls/hr Lidocaine HCl (Xylocaine 2% Jelly) Confirm Administered Dose 10 ml .ROUTE .STK- MED ONE Stop: 01/20/17 02:03 Last Admin: 01/20/17 02:22 Dose: Not Given Lidocaine HCl (Xylocaine 2% Jelly) 10 ml MUCMEM ONETIME ONE Stop: 01/20/17 02:21 Last Admin: 01/20/17 02:22 Dose: 10 ml Lorazepam (Ativan) 0.5 mg IVPUSH Q8H [facility] Last Admin: 01/20/17 14:19 Dose: Not Given Lorazepam (Ativan) 0.5 mg IVPUSH Q8H PRN PRN Reason: Anxiety Last Admin: 01/21/17 20:13 Dose: 0.5 mg Lorazepam (Ativan) 0.5 mg PO TID PRN PRN Reason: Anxiety Lorazepam (Ativan) 0.5 mg PO TID [facility] Last Admin: 01/24/17 18:02 Dose: Not Given Non-Formulary Medication (Nf Drug) 0 each PO DAILY [facility] Ondansetron HCl (Zofran) 4 mg IVPUSH ONETIME ONE Stop: 01/20/17 00:05 Last Admin: 01/20/17 00:13 Dose: 4 mg Pantoprazole Sodium (Protonix Iv) 40 mg IVPUSH ONETIME ONE Stop: 01/19/17 22:30 Last Admin: 01/19/17 22:38 Dose: 40 mg Pantoprazole Sodium (Protonix Iv) 40 mg IVPUSH ACBRK [facility] Last Admin: 01/20/17 06:42 Dose: 40 mg Pantoprazole Sodium (Protonix Iv) 40 mg IVPUSH Q12H [facility] Last Admin: 01/21/17 06:11 Dose: 40 mg Pantoprazole Sodium (Protonix Iv) 40 mg IVPUSH Q12H [facility] Last Admin: 01/23/17 08:15 Dose: 40 mg Potassium Chloride (Potassium Chloride Solution) 40 meq PO ONETIME ONE Stop: 01/24/17 16:27 Last Admin: 01/24/17 17:28 Dose: 40 meq Potassium Chloride (Potassium Chloride) 40 meq PO ONETIME ONE Stop: 01/25/17 08:01 Last Admin: 01/25/17 08:24 Dose: 40 meq - Exam Quality Assessment: DVT Prophylaxis General: Alert, Oriented, Cooperative HEENT: Pupils Equal, Pupils Reactive, EOMI Neck: Supple, Trachea Midline, No JVD Lungs: Clear to Auscultation Cardiovascular: Regular Rate, Regular Rhythm GI/Abdominal Exam: Normal Bowel Sounds, Soft, Non-Tender, No Distention (Female) Exam: Deferred Back Exam: Normal Inspection Extremities: Normal Inspection Skin: Warm Neurological: No New Focal Deficit Psy/Mental Status: Alert - Problem List & Annotations (1) Dehydration SNOMED Code(s): 86255733 Code(s): E86.0 - DEHYDRATION Status: Acute Priority: High Current Visit : Yes (2) Schizophrenia SNOMED Code(s): 22894095 Code(s): F20.9 - SCHIZOPHRENIA, UNSPECIFIED Status: Chronic Priority: Medium Current Visit: Yes Qualifiers: Schizophrenia type: unspecified Qualified Code(s): F20.9 - Schizophrenia, unspecified (3) Small bowel obstruction due to adhesions SNOMED Code(s): 609955501 Code(s): K56.5 - INTESTINAL ADHESIONS W OBST (POSTPROCEDURAL) (POSTINFECTION ) Status: Acute Current Visit: Yes (4) Pneumonia SNOMED Code(s): 852380793 Code(s): J18.9 - PNEUMONIA, UNSPECIFIED ORGANISM Status: Acute Current Visit: Yes - Problem List Review Problem List Initiated/Reviewed/Updated: Yes - My Orders Last 24 Hours: My Active Orders 01/25/17 12:00 Potassium Chloride 40 meq PO BID - Plan Plan:: Impression/Plan: SBO -General Surgery, Dr. Barrera signed off. -NGT-->pulled; clear liquids; advance as tolerated. -IVF, antiemetics, analgesics PRN Hemoccult positve stool--Hgb stable; OP work up. Possible past medical history of Colitis -IV abx as below--DC. Query Aspiration PNA -Treating with zosyn IV and flagyl IV, probiotic----CXR clear from aspiration PNA standpoint today- will DC abx. Cont florastor. History of Schizophrenia -cont home meds -Has therapeutic case manager, Dign[employer], that can be called if needed for behavioral concerns Electrolyte abnormalities -Hypokalemia--via IVF/NGT route for replacement; additional K given. -Hypomagnesemia -Replete and monitor daily Dehydration -IVF rehydration--change to D5NS today -Labs daily to follow Other: DVT/GI prophylaxis CM/SW for assist with DC planning, therapeutic case manager is aware of admission and willing to come for assist if needed. Patient is Full Code status- LOS>96 hours due to prolong need for NGT for SBO.
[2017-01-26] MEDS: Potassium Chloride 20 MEQ Tab.ER PO SCH ×2 (13:42→20:03)
[2017-01-26] MEDS ORDERED: Magnesium Sulfate/Water 2 GM in Premix Bag 1 BAG IV ONE (13:56)
[2017-01-27] MEDS: Pantoprazole 40 MG Tab.CR PO SCH ×2 (09:24→21:54)
[2017-01-27] MEDS: cloZAPine 100 MG Tab PO SCH ×3 (09:25→21:53)
[2017-01-27] MEDS: amLODIPine 5 MG Tab PO SCH (09:28)
[2017-01-27] MEDS: LORazepam 0.5 MG Tab PO SCH ×3 (09:29→21:53)
[2017-01-27] MEDS: Levothyroxine 88 MCG Tab PO SCH (09:29)
[2017-01-27] MEDS: Atenolol 25 MG Tab PO SCH (09:30)
[2017-01-27] MEDS: Enoxaparin 40 MG/0.4 ML Syringe SUBCUT SCH (09:31)
[2017-01-27] MEDS: Saccharomyces Boulardii (Probiotic) 250 MG Cap PO SCH ×2 (09:31→21:53)
[2017-01-27] MEDS: Bisacodyl 10 MG Supp RECTAL SCH (09:32)
--- NOTE | 2017-01-27 14:15 | PCM.PN ---
- General Info Date of Service: 01/27/17 Functional Status: Reports: Pain Controlled, Tolerating Diet - Review of Systems General: Reports: No Symptoms HEENT: Reports: No Symptoms Pulmonary: Reports: No Symptoms Cardiovascular: Reports: No Symptoms Gastrointestinal: Reports: No Symptoms Genitourinary: Reports: No Symptoms Musculoskeletal: Reports: No Symptoms Skin: Reports: No Symptoms Neurological: Reports: No Symptoms Psychiatric: Reports: No Symptoms - Patient Data Vitals - Most Recent: Last Vital Signs Temp 36.4 C 01/27/17 09:25 Pulse 102 H 01/27/17 09:30 Resp 20 01/27/17 09:25 BP 118/66 01/27/17 09:30 Pulse Ox 100 01/27/17 09:25 Weight - Most Recent: 74.752 kg I&O - Last 24 Hours: Intake & Output 01/26/17 01/27/17 01/27/17 22:59 06:59 14:59 Intake Total 3250 1500 Output Total 500 Balance 2750 1500 Lab Results Last 24 Hours: Laboratory Results - last 24 hr 01/27/17 01/27/17 Range/Units 11:45 11:45 WBC 12.85 H (3.98-10.04) K/mm3 RBC 3.13 L (3.98-5.22) M/mm3 Hgb 8.7 L (11.2-15.7) gm/L Hct 26.4 L (34.1-44.9) % MCV 84.3 (79.4-94.8) fl MCH 27.8 (25.6-32.2) pg MCHC 33.0 (32.2-35.5) g/dl RDW Std Deviation 50.0 H (36.4-46.3) fL Plt Count 432 H (182-369) K/mm3 MPV 8.4 L (9.4-12.3) fl Neut % (Auto) 66.2 (34.0-71.1) % Lymph % (Auto) 16.6 L (19.3-51.7) % Boyle % (Auto) 11.1 (4.7-12.5) % Eos % (Auto) 2.1 (0.7-5.8) Baso % (Auto) 0.3 (0.1-1.2) % Neut # (Auto) 8.51 H (1.56-6.13) K/mm3 Lymph # (Auto) 2.13 (1.18-3.74) K/mm3 Boyle # (Auto) 1.42 H (0.24-0.36) K/mm3 Eos # (Auto) 0.27 (0.04-0.36) K/mm3 Baso # (Auto) 0.04 (0.01-0.08) K/mm3 Manual Slide Review Abnormal smear Sodium 132 L (136-145) mEq/L Potassium 4.5 (3.5-5.1) mEq/L Chloride 102 (98-107) mEq/L Carbon Dioxide 25 (21-32) mEq/L Anion Gap 9.5 (5-15) BUN 2 L (7-18) mg/dL Creatinine 0.8 (0.55-1.02) mg/dL Est Cr Clr Drug Dosing 66.45 mL/min Estimated GFR (MDRD) > 60 (>60) mL/min BUN/Creatinine Ratio 2.5 L (14-18) Glucose 95 (80-115) mg/dL Calcium 7.7 L (8.5-10.1) mg/dL Med Orders - Current: Current Medications Amlodipine Besylate (Norvasc) 2.5 mg PO DAILY [facility] Last Admin: 01/27/17 09:28 Dose: 2.5 mg Atenolol (Tenormin) 25 mg PO DAILY [facility] Last Admin: 01/27/17 09:30 Dose: 25 mg Bisacodyl (Dulcolax) 10 mg RECTAL DAILY [facility] Last Admin: 01/27/17 09:32 Dose: Not Given Clozapine (Clozapine) 350 mg PO BEDTIME [facility] Last Admin: 01/26/17 20:02 Dose: 350 mg Clozapine (Clozapine) 200 mg PO BID@0800,1400 [facility] Last Admin: 01/27/17 14:11 Dose: 200 mg Enoxaparin Sodium (Lovenox) 40 mg SUBCUT DAILY [facility] Last Admin: 01/27/17 09:31 Dose: 40 mg Levothyroxine Sodium (Synthroid) 88 mcg PO DAILY [facility] Last Admin: 01/27/17 09:29 Dose: 88 mcg Lorazepam (Ativan) 0.5 mg PO TID [facility] Last Admin: 01/27/17 14:11 Dose: 0.5 mg Morphine Sulfate (Morphine) 0.5 mg IVPUSH Q4H PRN PRN Reason: Pain (moderate 4-6) Ondansetron HCl (Zofran) 4 mg IVPUSH Q8H PRN PRN Reason: Nausea/Vomiting Pantoprazole Sodium (Protonix) 40 mg PO Q12H [facility] Last Admin: 01/27/17 09:24 Dose: 40 mg Saccharomyces Boulardii (Florastor) 250 mg PO BID [facility] Last Admin: 01/27/17 09:31 Dose: 250 mg Sodium Chloride (Saline Flush) 10 ml FLUSH ASDIRECTED PRN PRN Reason: Keep Vein Open Discontinued Medications Clozapine (Clozapine) 200 mg PO BID [facility] Clozapine (Clozapine) 200 mg PO ONETIME ONE Stop: 01/20/17 14:46 Last Admin: 01/20/17 14:54 Dose: 200 mg Diatrizoate Meglum/Diatrizoate Sod (Gastrografin 37%) 90 ml PO ONETIME ONE Stop: 01/20/17 01:06 Last Admin: 01/20/17 01:29 Dose: 90 ml Enoxaparin Sodium (Lovenox) 30 mg SUBCUT DAILY [facility] Last Admin: 01/21/17 08:35 Dose: 30 mg Enoxaparin Sodium (Lovenox) 40 mg SUBCUT DAILY [facility] Last Admin: 01/21/17 10:11 Dose: Not Given Sodium Chloride (Normal Saline) 1,000 mls @ 500 mls/hr IV ASDIRECTED [facility] Last Admin: 01/19/17 22:38 Dose: 500 mls/hr Sodium Chloride (Normal Saline) 1,000 mls @ 125 mls/hr IV ASDIRECTED [facility] Last Admin: 01/20/17 03:52 Dose: 125 mls/hr Sodium Chloride (Normal Saline) 1,000 mls @ 999 mls/hr IV ONETIME ONE Stop: 01/20/17 11:44 Last Admin: 01/20/17 11:38 Dose: 999 mls/hr Sodium Chloride (Normal Saline) 1,000 mls @ 150 mls/hr IV ASDIRECTED [facility] Last Admin: 01/21/17 10:09 Dose: 150 mls/hr Piperacillin Sod/Tazobactam (Sod 4.5 gm/ Sodium Chloride) 100 mls @ 25 mls/hr IV Q8H [facility] Last Admin: 01/23/17 12:22 Dose: 25 mls/hr Piperacillin Sod/Tazobactam (Sod 4.5 gm/ Sodium Chloride) 100 mls @ 200 mls/hr IV ONETIME ONE Stop: 01/20/17 20:29 Last Admin: 01/20/17 20:35 Dose: 200 mls/hr Metronidazole 500 mg/ Premix 100 mls @ 100 mls/hr IV Q8H [facility] Last Admin: 01/23/17 11:11 Dose: 100 mls/hr Magnesium Sulfate 2 gm/ Premix 50 mls @ 25 mls/hr IV ONETIME ONE Stop: 01/21/17 11:14 Last Admin: 01/21/17 10:09 Dose: 25 mls/hr Potassium Chloride/Sodium Chloride (1/2 Ns With 20 Meq Kcl) 1,000 mls @ 125 [facility]ls [facility] Admin: 01/22/17 21:44 Dose: 125 mls/hr Dextrose/Sodium Chloride (Dextrose 5%-Normal Saline) 1,000 mls [facility]: 01/24/17 06:40 Dose: 100 mls/hr Magnesium Sulfate 2 gm/ Premix 50 mls @ 25 mls/hr IV ONETIME ONE Stop: 01/23/17 10:17 Last Admin: 01/23/17 09:21 Dose: 25 mls/hr Potassium Chloride/Sodium Chloride (Normal Saline With 20 Meq Kcl) 1,000 mls @ 75 [facility]ls[facility] Admin: 01/25/17 05:31 Dose: 75 mls/hr Magnesium Sulfate 2 gm/ Premix 50 mls @ 25 mls/hr IV ONETIME ONE Stop: 01/24/17 22:06 Last Admin: 01/24/17 20:26 Dose: 25 mls/hr Magnesium Sulfate 2 gm/ Premix 50 mls @ 25 mls/hr IV ONETIME ONE Stop: 01/26/17 15:55 Last Admin: 01/26/17 14:41 Dose: 25 mls/hr Lidocaine HCl (Xylocaine 2% Jelly) Confirm Administered Dose 10 ml .ROUTE .STK- MED ONE Stop: 01/20/17 02:03 Last Admin: 01/20/17 02:22 Dose: Not Given Lidocaine HCl (Xylocaine 2% Jelly) 10 ml MUCMEM ONETIME ONE Stop: 01/20/17 02:21 Last Admin: 01/20/17 02:22 Dose: 10 ml Lorazepam (Ativan) 0.5 mg IVPUSH Q8H [facility] Last Admin: 01/20/17 14:19 Dose: Not Given Lorazepam (Ativan) 0.5 mg IVPUSH Q8H PRN PRN Reason: Anxiety Last Admin: 01/21/17 20:13 Dose: 0.5 mg Lorazepam (Ativan) 0.5 mg PO TID PRN PRN Reason: Anxiety Lorazepam (Ativan) 0.5 mg PO TID [facility] Last Admin: 01/24/17 18:02 Dose: Not Given Non-Formulary Medication (Nf Drug) 0 each PO DAILY [facility] Ondansetron HCl (Zofran) 4 mg IVPUSH ONETIME ONE Stop: 01/20/17 00:05 Last Admin: 01/20/17 00:13 Dose: 4 mg Pantoprazole Sodium (Protonix Iv) 40 mg IVPUSH ONETIME ONE Stop: 01/19/17 22:30 Last Admin: 01/19/17 22:38 Dose: 40 mg Pantoprazole Sodium (Protonix Iv) 40 mg IVPUSH ACBRK [facility] Last Admin: 01/20/17 06:42 Dose: 40 mg Pantoprazole Sodium (Protonix Iv) 40 mg IVPUSH Q12H [facility] Last Admin: 01/21/17 06:11 Dose: 40 mg Pantoprazole Sodium (Protonix Iv) 40 mg IVPUSH Q12H [facility] Last Admin: 01/23/17 08:15 Dose: 40 mg Potassium Chloride (Potassium Chloride Solution) 40 meq PO ONETIME ONE Stop: 01/24/17 16:27 Last Admin: 01/24/17 17:28 Dose: 40 meq Potassium Chloride (Potassium Chloride) 40 meq PO ONETIME ONE Stop: 01/25/17 08:01 Last Admin: 01/25/17 08:24 Dose: 40 meq Potassium Chloride (Potassium Chloride) 40 meq PO BID [facility] Stop: 01/26/17 21:01 Last Admin: 01/26/17 09:02 Dose: Not Given Potassium Chloride (Klor-Con M20) 40 meq PO BID [facility] Stop: 01/26/17 21:01 Last Admin: 01/26/17 20:03 Dose: 40 meq - Exam Quality Assessment: DVT Prophylaxis General: Alert, Oriented, No Acute Distress HEENT: Pupils Equal, Pupils Reactive, EOMI Neck: Supple, Trachea Midline Lungs: Normal Respiratory Effort Cardiovascular: Regular Rate, Regular Rhythm GI/Abdominal Exam: Normal Bowel Sounds, Soft, Non-Tender, No Distention (Female) Exam: Deferred Back Exam: Normal Inspection Extremities: Normal Inspection Skin: Warm Neurological: No New Focal Deficit Psy/Mental Status: Alert - Problem List & Annotations (1) Dehydration SNOMED Code(s): 51708867 Code(s): E86.0 - DEHYDRATION Status: Acute Priority: High Current Visit : Yes (2) Schizophrenia SNOMED Code(s): 05059320 Code(s): F20.9 - SCHIZOPHRENIA, UNSPECIFIED Status: Chronic Priority: Medium Current Visit: Yes Qualifiers: Schizophrenia type: unspecified Qualified Code(s): F20.9 - Schizophrenia, unspecified (3) Small bowel obstruction due to adhesions SNOMED Code(s): 317145826 Code(s): K56.5 - INTESTINAL ADHESIONS W OBST (POSTPROCEDURAL) (POSTINFECTION ) Status: Acute Current Visit: Yes (4) Pneumonia SNOMED Code(s): 478755305 Code(s): J18.9 - PNEUMONIA, UNSPECIFIED ORGANISM Status: Acute Current Visit: Yes - Problem List Review Problem List Initiated/Reviewed/Updated: Yes - Plan Plan:: Impression/Plan: SBO -General Surgery, Dr. Barrera signed off. -NGT-->pulled; clear liquids; advance as tolerated. -IVF, antiemetics, analgesics PRN Hemoccult positve stool--Hgb stable; OP work up. Possible past medical history of Colitis -IV abx as below--DC. Query Aspiration PNA -Treating with zosyn IV and flagyl IV, probiotic----CXR clear from aspiration PNA standpoint today- will DC abx. Cont florastor. History of Schizophrenia -cont home meds -Has supervisor case loading, [employer], that can be called if needed for behavioral concerns Electrolyte abnormalities -Hypokalemia--via IVF/NGT route for replacement; additional K given. -Hypomagnesemia -Replete and monitor daily Dehydration -IVF rehydration--change to D5NS today -Labs daily to follow Other: DVT/GI prophylaxis CM/SW for assist with DC planning, supervisor case loading is aware of admission and willing to come for assist if needed. Patient is Full Code status- LOS>96 hours due to prolong need for NGT for SBO. DC 01/28/17
[2017-01-27] MEDS: Potassium Chloride/Sodium Chloride Tab PO SCH ×2 (16:18→21:54)
[2017-01-28] MEDS ORDERED: Levothyroxine 88 MCG Tab PO SCH (06:00)
--- NOTE | 2017-01-28 07:45 | PCM.DCSUM1 ---
<Kailyn Costa - Last Filed: 01/28/17 14:24> Discharge Summary - Hospital Course Free Text/Narrative:: 61 year old female admitted with SBO, reported that she had been nauseated and vomited brown material. Denies fever or chills; no reported change in bowel habits, appetite or habits. An NGT was placed in the ED. She additionally complained of abdominal pain in the ED. Currently she denies pain but does admit to abdominal distension. She will be admitted to [facility], a genral surgery consult will be requested. The ED provider briefly discussed the case with general surgery [employer]. Patient was managed medically with NGT, ice chips/NPO, Dr. Barrera, General Surgeon followed patient during hospital stay. Serial imaging was done with slow improvements in SBO. She had mild electrolyte abnormalities which were corrected. NGT was pulled, diet was slowly advanced. She was refusing PT/ ambulation early in her stay despite multiple attempts and conversations/ encouraging her to do so for improving her outcome. She was eventually moving her bowels, ambulating and tolerating regular meals without n/v or abdominal pain. Due to her home/social situation, lives at home with her elderly, ill mother who assists in her care, she is no longer able to live at home. Social Work arranged services with her Waistband Setter for her to be discharged and go to [facility] and [facility] to [facility] bed today. Patient will be discharged with Home Health Nursing and PODIATRIC SURGEON services to assist with medication monitoring and education, VS monitoring and education, bathing assistance due to recurrent SBO and electrolyte abnormalities. She will be home bound. She will follow up with her PCP within one week of discharge who will then oversee [facility] services. - Discharge Data Discharge Date: 01/28/17 (admit date 01/20/17) Discharge Disposition: Home, Self-Care 01 Condition: Good - Discharge Diagnosis/Problem(s) (1) SBO (small bowel obstruction) SNOMED Code(s): 953036979 ICD Code: K56.69 - OTHER INTESTINAL OBSTRUCTION Status: Acute Priority: High (2) Dehydration SNOMED Code(s): 44291060 ICD Code: E86.0 - DEHYDRATION Status: Acute Priority: High (3) Hypokalemia SNOMED Code(s): 15527646 ICD Code: E87.6 - HYPOKALEMIA Status: Acute Priority: High (4) Hypomagnesemia SNOMED Code(s): 466143144 ICD Code: E83.42 - HYPOMAGNESEMIA Status: Acute Priority: High (5) Vomiting SNOMED Code(s): 144158209 ICD Code: R11.10 - VOMITING, UNSPECIFIED Status: Acute Priority: High QualifierTitle: Vomiting type: unspecified Vomiting Intractability: non- intractable Nausea presence: with nausea Qualified Code(s): R11.2 - Nausea with vomiting, unspecified (6) Schizophrenia SNOMED Code(s): 73823711 ICD Code: F20.9 - SCHIZOPHRENIA, UNSPECIFIED Status: Chronic Priority: Medium QualifierTitle: Schizophrenia type: unspecified Qualified Code(s): F20.9 - Schizophrenia, unspecified - Patient Summary/Data Operative Procedure(s) Performed: None Complications: None. Longer than expected course of hospital stay as patient was slow to respond to medical treatment for SBO resolution. Consults: Consultations 01/20/17 10:39 Consult to Physician [CONS] Routine 01/20/17 10:40 Consult to Care Management [Consult to Case Management] [CONS] Routine 01/21/17 09:00 Consult to Occupational Therapy [OT Evaluation and Treatment] [CONS] Routine Consult to Physical Therapy [PT Evaluation and Treatment] [CONS] Routine Labs Pending at D/C: None Recommended Follow-up Testing/Procedures: Follow up with PCP within one week of discharge. Follow up with Dr. Barrera within 2 weeks of discharge for recheck of SBO. Planned Operative Procedure(s) after DC: None Hospital Course: As above - Patient Instructions Diet: Usual Diet as Tolerated, Drink 8-10+ Glasses/Day Activity: As Tolerated (ambulate 4 times daily) Driving: Do Not Drive Showering/Bathing: May Shower Notify Provider of: Fever, Increased Pain, Swelling and Redness, Nausea and/or Vomiting - Discharge Plan Prescriptions/Med Rec: Pantoprazole [ProTONIX] 40 mg PO Q12H #60 tab.cr Potassium Chloride/NaCl [Thermotabs] 2 each PO BID #10 tablet Saccharomyces Boulardii [Florastor] 250 mg PO BID #60 cap Home Medications: Home Meds Atenolol 25 mg PO DAILY 08/15/14 [History] LORazepam 0.5 mg PO TID 08/15/14 [History] Levothyroxine [Synthroid] 88 mcg PO DAILY 08/15/14 [History] cloZAPine [Clozapine] 350 mg PO BEDTIME 08/15/14 [History] cloZAPine [Clozaril] 200 mg PO BID 08/15/14 [History] Simvastatin [Zocor] 10 mg PO DAILY 04/13/16 [History] amLODIPine Besylate [Norvasc] 2.5 mg PO DAILY 04/13/16 [History] Pantoprazole [ProTONIX] 40 mg PO Q12H #60 tab.cr 01/28/17 [Rx] Potassium Chloride/NaCl [Thermotabs] 2 each PO BID #10 tablet 01/28/17 [Rx] Saccharomyces Boulardii [Florastor] 250 mg PO BID #60 cap 01/28/17 [Rx] Patient Handouts: Small Bowel Obstruction, Whwa-cf-Lrut, Schizophrenia, Colitis Referrals: PCP,Unknown [Primary Care Provider] - - Discharge Summary/Plan Comment DC Time >30 min.: Yes (40 min) - General Info Date of Service: 01/28/17 Admission Dx/Problem (Free Text: Admission Diagnosis/Problem Admission Diagnosis/Problem Small bowel obstruction Claudia is seen this morning resting comfortably in bed. No abdominal pain. Eating, tolerating food. Plans for discharge today, is medically stable. Functional Status: Reports: Pain Controlled, Tolerating Diet, Ambulating, Urinating, New Symptoms - Review of Systems General: Reports: No Symptoms HEENT: Reports: No Symptoms Pulmonary: Reports: No Symptoms Cardiovascular: Reports: No Symptoms Gastrointestinal: Reports: No Symptoms. Denies: Abdominal Pain, Constipation ( moving bowels), Nausea, Vomiting Genitourinary: Reports: No Symptoms Musculoskeletal: Reports: No Symptoms Skin: Reports: No Symptoms Neurological: Reports: No Symptoms Psychiatric: Reports: Mood Lability, Anxiety - Patient Data Vitals - Most Recent: Last Vital Signs Temp 98.2 F 01/28/17 01:14 Pulse 102 H 01/28/17 01:14 Resp 16 01/28/17 01:14 BP 137/80 01/28/17 01:14 Pulse Ox 98 01/28/17 01:14 Weight - Most Recent: 75.659 kg I&O - Last 24 hours: Intake & Output 01/27/17 01/28/17 01/28/17 22:59 06:59 14:59 Intake Total 2620 800 Output Total 1200 1050 Balance 1420 -250 Lab Results - Last 24 hrs: Laboratory Results - last 24 hr 01/27/17 01/27/17 Range/Units 11:45 11:45 WBC 12.85 H (3.98-10.04) K/mm3 RBC 3.13 L (3.98-5.22) M/mm3 Hgb 8.7 L (11.2-15.7) gm/L Hct 26.4 L (34.1-44.9) % MCV 84.3 (79.4-94.8) fl MCH 27.8 (25.6-32.2) pg MCHC 33.0 (32.2-35.5) g/dl RDW Std Deviation 50.0 H (36.4-46.3) fL Plt Count 432 H (182-369) K/mm3 MPV 8.4 L (9.4-12.3) fl Neut % (Auto) 66.2 (34.0-71.1) % Lymph % (Auto) 16.6 L (19.3-51.7) % [place] % (Auto) 11.1 (4.7-12.5) % Eos % (Auto) 2.1 (0.7-5.8) Baso % (Auto) 0.3 (0.1-1.2) % Neut # (Auto) 8.51 H (1.56-6.13) K/mm3 Lymph # (Auto) 2.13 (1.18-3.74) K/mm3 [place] # (Auto) 1.42 H (0.24-0.36) K/mm3 Eos # (Auto) 0.27 (0.04-0.36) K/mm3 Baso # (Auto) 0.04 (0.01-0.08) K/mm3 Manual Slide Review Abnormal smear Sodium 132 L (136-145) mEq/L Potassium 4.5 (3.5-5.1) mEq/L Chloride 102 (98-107) mEq/L Carbon Dioxide 25 (21-32) mEq/L Anion Gap 9.5 (5-15) BUN 2 L (7-18) mg/dL Creatinine 0.8 (0.55-1.02) mg/dL Est Cr Clr Drug Dosing 66.45 mL/min Estimated GFR (MDRD) > 60 (>60) mL/min BUN/Creatinine Ratio 2.5 L (14-18) Glucose 95 (80-115) mg/dL Calcium 7.7 L (8.5-10.1) mg/dL Med Orders - Current: Current Medications Amlodipine Besylate (Norvasc) 2.5 mg PO DAILY [facility] Last Admin: 01/27/17 09:28 Dose: 2.5 mg Atenolol (Tenormin) 25 mg PO DAILY [facility] Last Admin: 01/27/17 09:30 Dose: 25 mg Bisacodyl (Dulcolax) 10 mg RECTAL DAILY [facility] Last Admin: 01/27/17 09:32 Dose: Not Given Clozapine (Clozapine) 350 mg PO BEDTIME [facility] Last Admin: 01/27/17 21:53 Dose: 350 mg Clozapine (Clozapine) 200 mg PO BID@0800,1400 [facility] Last Admin: 01/27/17 14:11 Dose: 200 mg Enoxaparin Sodium (Lovenox) 40 mg SUBCUT DAILY [facility] Last Admin: 01/27/17 09:31 Dose: 40 mg Levothyroxine Sodium (Synthroid) 88 mcg PO DAILY@0600 [facility] Last Admin: 01/28/17 07:13 Dose: 88 mcg Lorazepam (Ativan) 0.5 mg PO TID [facility] Last Admin: 01/27/17 21:53 Dose: 0.5 mg Morphine Sulfate (Morphine) 0.5 mg IVPUSH Q4H PRN PRN Reason: Pain (moderate 4-6) Ondansetron HCl (Zofran) 4 mg IVPUSH Q8H PRN PRN Reason: Nausea/Vomiting Oral Electrolytes (Thermotabs) 2 each PO BID [facility] Last Admin: 01/27/17 21:54 Dose: 2 each Pantoprazole Sodium (Protonix) 40 mg PO Q12H [facility] Last Admin: 01/27/17 21:54 Dose: 40 mg Saccharomyces Boulardii (Florastor) 250 mg PO BID [facility] Last Admin: 01/27/17 21:53 Dose: 250 mg Sodium Chloride (Saline Flush) 10 ml FLUSH ASDIRECTED PRN PRN Reason: Keep Vein Open Discontinued Medications Clozapine (Clozapine) 200 mg PO BID [facility] Clozapine (Clozapine) 200 mg PO ONETIME ONE Stop: 01/20/17 14:46 Last Admin: 01/20/17 14:54 Dose: 200 mg Diatrizoate Meglum/Diatrizoate Sod (Gastrografin 37%) 90 ml PO ONETIME ONE Stop: 01/20/17 01:06 Last Admin: 01/20/17 01:29 Dose: 90 ml Enoxaparin Sodium (Lovenox) 30 mg SUBCUT DAILY [facility] Last Admin: 01/21/17 08:35 Dose: 30 mg Enoxaparin Sodium (Lovenox) 40 mg SUBCUT DAILY [facility] Last Admin: 01/21/17 10:11 Dose: Not Given Sodium Chloride (Normal Saline) 1,000 mls @ 500 mls/hr IV ASDIRECTED [facility] Last Admin: 01/19/17 22:38 Dose: 500 mls/hr Sodium Chloride (Normal Saline) 1,000 mls @ 125 mls/hr IV ASDIRECTED [facility] Last Admin: 01/20/17 03:52 Dose: 125 mls/hr Sodium Chloride (Normal Saline) 1,000 mls @ 999 mls/hr IV ONETIME ONE Stop: 01/20/17 11:44 Last Admin: 01/20/17 11:38 Dose: 999 mls/hr Sodium Chloride (Normal Saline) 1,000 mls @ 150 mls/hr IV ASDIRECTED [facility] Last Admin: 01/21/17 10:09 Dose: 150 mls/hr Piperacillin Sod/Tazobactam (Sod 4.5 gm/ Sodium Chloride) 100 mls @ 25 mls/hr IV Q8H [facility] Last Admin: 01/23/17 12:22 Dose: 25 mls/hr Piperacillin Sod/Tazobactam (Sod 4.5 gm/ Sodium Chloride) 100 mls @ 200 mls/hr IV ONETIME ONE Stop: 01/20/17 20:29 Last Admin: 01/20/17 20:35 Dose: 200 mls/hr Metronidazole 500 mg/ Premix 100 mls @ 100 mls/hr IV Q8H [facility] Last Admin: 01/23/17 11:11 Dose: 100 mls/hr Magnesium Sulfate 2 gm/ Premix 50 mls @ 25 mls/hr IV ONETIME ONE Stop: 01/21/17 11:14 Last Admin: 01/21/17 10:09 Dose: 25 mls/hr Potassium Chloride/Sodium Chloride (1/2 Ns With 20 Meq Kcl) 1,000 mls @ 125 mls /hr IV ASDIRECTED [facility] Last Admin: 01/22/17 21:44 Dose: 125 mls/hr Dextrose/Sodium Chloride (Dextrose 5%-Normal Saline) 1,000 mls @ 100 mls/hr IV ASDIRECTED [facility] Last Admin: 01/24/17 06:40 Dose: 100 mls/hr Magnesium Sulfate 2 gm/ Premix 50 mls @ 25 mls/hr IV ONETIME ONE Stop: 01/23/17 10:17 Last Admin: 01/23/17 09:21 Dose: 25 mls/hr Potassium Chloride/Sodium Chloride (Normal Saline With 20 Meq Kcl) 1,000 mls @ 75 mls/hr IV ASDIRECTED [facility] Last Admin: 01/25/17 05:31 Dose: 75 mls/hr Magnesium Sulfate 2 gm/ Premix 50 mls @ 25 mls/hr IV ONETIME ONE Stop: 01/24/17 22:06 Last Admin: 01/24/17 20:26 Dose: 25 mls/hr Magnesium Sulfate 2 gm/ Premix 50 mls @ 25 mls/hr IV ONETIME ONE Stop: 01/26/17 15:55 Last Admin: 01/26/17 14:41 Dose: 25 mls/hr Levothyroxine Sodium (Synthroid) 88 mcg PO DAILY [facility] Last Admin: 01/27/17 09:29 Dose: 88 mcg Lidocaine HCl (Xylocaine 2% Jelly) Confirm Administered Dose 10 ml .ROUTE .STK- MED ONE Stop: 01/20/17 02:03 Last Admin: 01/20/17 02:22 Dose: Not Given Lidocaine HCl (Xylocaine 2% Jelly) 10 ml MUCMEM ONETIME ONE Stop: 01/20/17 02:21 Last Admin: 01/20/17 02:22 Dose: 10 ml Lorazepam (Ativan) 0.5 mg IVPUSH Q8H [facility] Last Admin: 01/20/17 14:19 Dose: Not Given Lorazepam (Ativan) 0.5 mg IVPUSH Q8H PRN PRN Reason: Anxiety Last Admin: 01/21/17 20:13 Dose: 0.5 mg Lorazepam (Ativan) 0.5 mg PO TID PRN PRN Reason: Anxiety Lorazepam (Ativan) 0.5 mg PO TID [facility] Last Admin: 01/24/17 18:02 Dose: Not Given Non-Formulary Medication (Nf Drug) 0 each PO DAILY [facility] Ondansetron HCl (Zofran) 4 mg IVPUSH ONETIME ONE Stop: 01/20/17 00:05 Last Admin: 01/20/17 00:13 Dose: 4 mg Pantoprazole Sodium (Protonix Iv) 40 mg IVPUSH ONETIME ONE Stop: 01/19/17 22:30 Last Admin: 01/19/17 22:38 Dose: 40 mg Pantoprazole Sodium (Protonix Iv) 40 mg IVPUSH ACBRK [facility] Last Admin: 01/20/17 06:42 Dose: 40 mg Pantoprazole Sodium (Protonix Iv) 40 mg IVPUSH Q12H [facility] Last Admin: 01/21/17 06:11 Dose: 40 mg Pantoprazole Sodium (Protonix Iv) 40 mg IVPUSH Q12H [facility] Last Admin: 01/23/17 08:15 Dose: 40 mg Potassium Chloride (Potassium Chloride Solution) 40 meq PO ONETIME ONE Stop: 01/24/17 16:27 Last Admin: 01/24/17 17:28 Dose: 40 meq Potassium Chloride (Potassium Chloride) 40 meq PO ONETIME ONE Stop: 01/25/17 08:01 Last Admin: 01/25/17 08:24 Dose: 40 meq Potassium Chloride (Potassium Chloride) 40 meq PO BID [facility] Stop: 01/26/17 21:01 Last Admin: 01/26/17 09:02 Dose: Not Given Potassium Chloride (Klor-Con M20) 40 meq PO BID [facility] Stop: 01/26/17 21:01 Last Admin: 01/26/17 20:03 Dose: 40 meq - Exam Quality Assessment: Reports: DVT Prophylaxis General: Reports: Alert, Oriented, Cooperative, No Acute Distress HEENT: Reports: Pupils Equal, Pupils Reactive, EOMI, Mucous Membr. Moist/[place] Neck: Reports: Supple Lungs: Reports: Clear to Auscultation, Normal Respiratory Effort, Decreased Breath Sounds (bases) Cardiovascular: Reports: Regular Rate, Regular Rhythm GI/Abdominal Exam: Normal Bowel Sounds, Soft, Non-Tender, No Organomegaly (Female) Exam: Deferred Rectal (Female) Exam: Deferred Neurological: Reports: No New Focal Deficit Psy/Mental Status: Reports: Alert, Normal Affect, Normal Mood *Q Meaningful Use (DIS) - VTE *Q VTE Criteria *Q: - Stroke *Q Stroke Criteria *Q: - AMI *Q AMI Criteria *Q: <Nadia Cummins - Last Filed: 01/28/17 16:34> Discharge Summary - Hospital Course Free Text/Narrative:: DC home, see above for details. - Discharge Diagnosis/Problem(s) (1) Dehydration SNOMED Code(s): 29127467 ICD Code: E86.0 - DEHYDRATION Status: Acute Priority: High (2) Schizophrenia SNOMED Code(s): 67165083 ICD Code: F20.9 - SCHIZOPHRENIA, UNSPECIFIED Status: Chronic Priority: Medium Qualifiers: Schizophrenia type: unspecified Qualified Code(s): F20.9 - Schizophrenia, unspecified (3) Small bowel obstruction due to adhesions SNOMED Code(s): 985773688 ICD Code: K56.5 - INTESTINAL ADHESIONS W OBST (POSTPROCEDURAL) (POSTINFECTION ) Status: Acute (4) Pneumonia SNOMED Code(s): 741187535 ICD Code: J18.9 - PNEUMONIA, UNSPECIFIED ORGANISM Status: Acute - Patient Summary/Data Consults: Consultations 01/20/17 10:39 Consult to Physician [CONS] Routine 01/20/17 10:40 Consult to Care Management [Consult to Case Management] [CONS] Routine 01/21/17 09:00 Consult to Occupational Therapy [OT Evaluation and Treatment] [CONS] Routine Consult to Physical Therapy [PT Evaluation and Treatment] [CONS] Routine - Patient Data Vitals - Most Recent: Last Vital Signs Temp 36.7 C 01/28/17 08:29 Pulse 92 01/28/17 08:46 Resp 16 01/28/17 08:29 BP 133/76 01/28/17 08:46 Pulse Ox 95 01/28/17 08:29 I&O - Last 24 hours: Intake & Output 01/28/17 01/28/17 01/28/17 06:59 14:59 22:59 Intake Total 800 3140 Output Total 1050 200 Balance -250 2940 Lab Results - Last 24 hrs: Laboratory Results - last 24 hr 01/28/17 01/28/17 Range/Units 07:30 07:30 WBC 13.48 H (3.98-10.04) K/mm3 RBC 3.17 L (3.98-5.22) M/mm3 Hgb 8.8 L (11.2-15.7) gm/L Hct 26.8 L (34.1-44.9) % MCV 84.5 (79.4-94.8) fl MCH 27.8 (25.6-32.2) pg MCHC 32.8 (32.2-35.5) g/dl RDW Std Deviation 49.3 H (36.4-46.3) fL Plt Count 450 H (182-369) K/mm3 MPV 9.0 L (9.4-12.3) fl Neut % (Auto) 69.6 (34.0-71.1) % Lymph % (Auto) 17.0 L (19.3-51.7) % [place] % (Auto) 9.3 (4.7-12.5) % Eos % (Auto) 2.0 (0.7-5.8) Baso % (Auto) 0.2 (0.1-1.2) % Neut # (Auto) 9.37 H (1.56-6.13) K/mm3 Lymph # (Auto) 2.29 (1.18-3.74) K/mm3 [place] # (Auto) 1.26 H (0.24-0.36) K/mm3 Eos # (Auto) 0.27 (0.04-0.36) K/mm3 Baso # (Auto) 0.03 (0.01-0.08) K/mm3 Manual Slide Review Normal smear Sodium 134 L (136-145) mEq/L Potassium 4.4 (3.5-5.1) mEq/L Chloride 102 (98-107) mEq/L Carbon Dioxide 26 (21-32) mEq/L Anion Gap 10.4 (5-15) BUN 6 L (7-18) mg/dL Creatinine 0.8 (0.55-1.02) mg/dL Est Cr Clr Drug Dosing 66.45 mL/min Estimated GFR (MDRD) > 60 (>60) mL/min BUN/Creatinine Ratio 7.5 L (14-18) Glucose 97 (80-115) mg/dL Calcium 8.1 L (8.5-10.1) mg/dL Magnesium 1.7 L (1.8-2.4) mg/dl C-Reactive Protein 0.3 (<1.0) mg/dL Med Orders - Current: Current Medications Discontinued Medications Amlodipine Besylate (Norvasc) 2.5 mg PO DAILY [facility] Last Admin: 01/28/17 08:46 Dose: 2.5 mg Atenolol (Tenormin) 25 mg PO DAILY [facility] Last Admin: 01/28/17 08:46 Dose: 25 mg Bisacodyl (Dulcolax) 10 mg RECTAL DAILY [facility] Last Admin: 01/28/17 08:47 Dose: Not Given Clozapine (Clozapine) 350 mg PO BEDTIME [facility] Last Admin: 01/27/17 21:53 Dose: 350 mg Clozapine (Clozapine) 200 mg PO BID [facility] Clozapine (Clozapine) 200 mg PO BID@0800,1400 [facility] Last Admin: 01/28/17 11:06 Dose: 200 mg Clozapine (Clozapine) 200 mg PO ONETIME ONE Stop: 01/20/17 14:46 Last Admin: 01/20/17 14:54 Dose: 200 mg Diatrizoate Meglum/Diatrizoate Sod (Gastrografin 37%) 90 ml PO ONETIME ONE Stop: 01/20/17 01:06 Last Admin: 01/20/17 01:29 Dose: 90 ml Enoxaparin Sodium (Lovenox) 30 mg SUBCUT DAILY [facility] Last Admin: 01/21/17 08:35 Dose: 30 mg Enoxaparin Sodium (Lovenox) 40 mg SUBCUT DAILY [facility] Last Admin: 01/21/17 10:11 Dose: Not Given Enoxaparin Sodium (Lovenox) 40 mg SUBCUT DAILY [facility] Last Admin: 01/28/17 08:47 Dose: 40 mg Sodium Chloride (Normal Saline) 1,000 mls @ 500 mls/hr IV ASDIRECTED [facility] Last Admin: 01/19/17 22:38 Dose: 500 mls/hr Sodium Chloride (Normal Saline) 1,000 mls @ 125 mls/hr IV ASDIRECTED [facility] Last Admin: 01/20/17 03:52 Dose: 125 mls/hr Sodium Chloride (Normal Saline) 1,000 mls @ 999 mls/hr IV ONETIME ONE Stop: 01/20/17 11:44 Last Admin: 01/20/17 11:38 Dose: 999 mls/hr Sodium Chloride (Normal Saline) 1,000 mls @ 150 [facility] Admin: 01/21/17 10:09 Dose: 150 mls/hr Piperacillin Sod/Tazobactam (Sod 4.5 gm/ Sodium Chloride) 100 mls @ 25 mls/hr IV Q8H [facility] Last Admin: 01/23/17 12:22 Dose: 25 mls/hr Piperacillin Sod/Tazobactam (Sod 4.5 gm/ Sodium Chloride) 100 mls @ 200 mls/hr IV ONETIME ONE Stop: 01/20/17 20:29 Last Admin: 01/20/17 20:35 Dose: 200 mls/hr Metronidazole 500 mg/ Premix 100 mls @ 100 mls/hr IV Q8H [facility] Last Admin: 01/23/17 11:11 Dose: 100 mls/hr Magnesium Sulfate 2 gm/ Premix 50 mls @ 25 mls/hr IV ONETIME ONE Stop: 01/21/17 11:14 Last Admin: 01/21/17 10:09 Dose: 25 mls/hr Potassium Chloride/Sodium Chloride (1/2 Ns With 20 Meq Kcl) 1,000 mls @ 125 mls /[facility] Last Admin: 01/22/17 21:44 Dose: 125 mls/hr Dextrose/Sodium Chloride (Dextrose 5%-Normal Saline) 1,000 mls @ 100 mls[facility] Last Admin: 01/24/17 06:40 Dose: 100 mls/hr Magnesium Sulfate 2 gm/ Premix 50 mls @ 25 mls/hr IV ONETIME ONE Stop: 01/23/17 10:17 Last Admin: 01/23/17 09:21 Dose: 25 mls/hr Potassium Chloride/Sodium Chloride (Normal Saline With 20 Meq Kcl) 1,000 mls @ 75 mls[facility] Last Admin: 01/25/17 05:31 Dose: 75 mls/hr Magnesium Sulfate 2 gm/ Premix 50 mls @ 25 mls/hr IV ONETIME ONE Stop: 01/24/17 22:06 Last Admin: 01/24/17 20:26 Dose: 25 mls/hr Magnesium Sulfate 2 gm/ Premix 50 mls @ 25 mls/hr IV ONETIME ONE Stop: 01/26/17 15:55 Last Admin: 01/26/17 14:41 Dose: 25 mls/hr Levothyroxine Sodium (Synthroid) 88 mcg PO DAILY [facility] Last Admin: 01/27/17 09:29 Dose: 88 mcg Levothyroxine Sodium (Synthroid) 88 mcg PO DAILY@0600 [facility] Last Admin: 01/28/17 07:13 Dose: 88 mcg Lidocaine HCl (Xylocaine 2% Jelly) Confirm Administered Dose 10 ml .ROUTE .STK- MED ONE Stop: 01/20/17 02:03 Last Admin: 01/20/17 02:22 Dose: Not Given Lidocaine HCl (Xylocaine 2% Jelly) 10 ml MUCMEM ONETIME ONE Stop: 01/20/17 02:21 Last Admin: 01/20/17 02:22 Dose: 10 ml Lorazepam (Ativan) 0.5 mg IVPUSH Q8H [facility] Last Admin: 01/20/17 14:19 Dose: Not Given Lorazepam (Ativan) 0.5 mg IVPUSH Q8H PRN PRN Reason: Anxiety Last Admin: 01/21/17 20:13 Dose: 0.5 mg Lorazepam (Ativan) 0.5 mg PO TID PRN PRN Reason: Anxiety Lorazepam (Ativan) 0.5 mg PO TID [facility] Last Admin: 01/24/17 18:02 Dose: Not Given Lorazepam (Ativan) 0.5 mg PO TID [facility] Last Admin: 01/28/17 08:46 Dose: 0.5 mg Magnesium Oxide (Magnesium Oxide) 800 mg PO ONETIME ONE Stop: 01/28/17 09:34 Last Admin: 01/28/17 11:05 Dose: 800 mg Morphine Sulfate (Morphine) 0.5 mg IVPUSH Q4H PRN PRN Reason: Pain (moderate 4-6) Non-Formulary Medication (Nf Drug) 0 each PO DAILY [facility] Ondansetron HCl (Zofran) 4 mg IVPUSH ONETIME ONE Stop: 01/20/17 00:05 Last Admin: 01/20/17 00:13 Dose: 4 mg Ondansetron HCl (Zofran) 4 mg IVPUSH Q8H PRN PRN Reason: Nausea/Vomiting Oral Electrolytes (Thermotabs) 2 each PO BID [facility] Last Admin: 01/28/17 08:45 Dose: 2 each Pantoprazole Sodium (Protonix Iv) 40 mg IVPUSH ONETIME ONE Stop: 01/19/17 22:30 Last Admin: 01/19/17 22:38 Dose: 40 mg Pantoprazole Sodium (Protonix Iv) 40 mg IVPUSH ACBRK [facility] Last Admin: 01/20/17 06:42 Dose: 40 mg Pantoprazole Sodium (Protonix Iv) 40 mg IVPUSH Q12H [facility] Last Admin: 01/21/17 06:11 Dose: 40 mg Pantoprazole Sodium (Protonix Iv) 40 mg IVPUSH Q12H [facility] Last Admin: 01/23/17 08:15 Dose: 40 mg Pantoprazole Sodium (Protonix) 40 mg PO Q12H [facility] Last Admin: 01/28/17 08:46 Dose: 40 mg Potassium Chloride (Potassium Chloride Solution) 40 meq PO ONETIME ONE Stop: 01/24/17 16:27 Last Admin: 01/24/17 17:28 Dose: 40 meq Potassium Chloride (Potassium Chloride) 40 meq PO ONETIME ONE Stop: 01/25/17 08:01 Last Admin: 01/25/17 08:24 Dose: 40 meq Potassium Chloride (Potassium Chloride) 40 meq PO BID [facility] Stop: 01/26/17 21:01 Last Admin: 01/26/17 09:02 Dose: Not Given Potassium Chloride (Klor-Con M20) 40 meq PO BID [facility] Stop: 01/26/17 21:01 Last Admin: 01/26/17 20:03 Dose: 40 meq Saccharomyces Boulardii (Florastor) 250 mg PO BID [facility] Last Admin: 01/28/17 08:47 Dose: 250 mg Sodium Chloride (Saline Flush) 10 ml FLUSH ASDIRECTED PRN PRN Reason: Keep Vein Open *Q Meaningful Use (DIS) - VTE *Q VTE Criteria *Q: - Stroke *Q Stroke Criteria *Q: - AMI *Q AMI Criteria *Q:
[2017-01-28] MEDS: Potassium Chloride/Sodium Chloride Tab PO SCH (08:45)
[2017-01-28] MEDS: LORazepam 0.5 MG Tab PO SCH (08:46)
[2017-01-28] MEDS: Pantoprazole 40 MG Tab.CR PO SCH (08:46)
[2017-01-28] MEDS: amLODIPine 5 MG Tab PO SCH (08:46)
[2017-01-28] MEDS: Atenolol 25 MG Tab PO SCH (08:46)
[2017-01-28 08:47] VITALS: BP 133/76
[2017-01-28] MEDS: Enoxaparin 40 MG/0.4 ML Syringe SUBCUT SCH (08:47)
[2017-01-28] MEDS: Saccharomyces Boulardii (Probiotic) 250 MG Cap PO SCH (08:47)
[2017-01-28] MEDS: Bisacodyl 10 MG Supp RECTAL SCH (08:47)
[2017-01-28] MEDS ORDERED: Magnesium Oxide 400 MG Tab PO ONE (09:33)
[2017-01-28] MEDS: cloZAPine 100 MG Tab PO SCH (11:06)
== END 2017-01-28 14:32 | disposition home or self-care (01) | DRG 388 ==
LOC: JD.ED 22:05 → JD.MS 01-20 02:25
PROVIDERS: ADMIT Internal Medicine Cardiovascular Disease; ATTEND Internal Medicine Cardiovascular Disease
DX: K56.5 Intestinal adhesions [bands] with obstruction (postinfection) (principal); K92.2 Gastrointestinal hemorrhage, unspecified; N28.9 Disorder of kidney and ureter, unspecified; I95.9 Hypotension, unspecified; J18.9 Pneumonia, unspecified organism; D63.8 Anemia in other chronic diseases classified elsewhere; R11.2 Nausea with vomiting, unspecified; R53.1 Weakness; E86.0 Dehydration; F20.9 Schizophrenia, unspecified; Z87.440 Personal history of urinary (tract) infections; R19.5 Other fecal abnormalities; E87.6 Hypokalemia; E83.42 Hypomagnesemia; I10 Essential (primary) hypertension; F41.9 Anxiety disorder, unspecified; L40.9 Psoriasis, unspecified; E03.9 Hypothyroidism, unspecified; Z88.8 Allergy status to other drugs, medicaments and biological substances; Z87.891 Personal history of nicotine dependence; Z79.899 Other long term (current) drug therapy
CPT/HCPCS: 36415; 74000; 74176; 80053; 81001; 82270; 85025; 96361; 96374; 96375; 99285; C9113; J2405; J7040; P9612; Q9963; 71020; 71020-26; 74020; 74020-26; 80048; 83605; 83735; 86140; 97116-GP; 97162-GP; 97166-GO; 99231; 99232; 99233; A9270-GY; J1650; J2060; J2543; J3475; J3480; J7030; J7042

== ENCOUNTER 2017-03-13 08:50 | Day surgery (SDC) | payer MEDICARE, MEDICAID ==
[~2017-03-13 08:50] MED LIST: Lactated Ringers 1,000 ML IV SCH; Lidocaine 1%/Sod Bicarbonate in NS 8.4% 1 ML Syringe IV PRN; Sodium Chloride 0.9% 10 ML Syringe FLUSH PRN
--- NOTE | 2017-03-13 09:42 | PCM.PREANE ---
Preanesthetic Assessment - Anesthesia/Transfusion/Family Hx Anesthesia History: Prior Anesthesia Without Reaction Family History of Anesthesia Reaction: No Transfusion History: No Prior Transfusion(s) - Review of Systems General: No Symptoms Pulmonary: No Symptoms Cardiovascular: No Symptoms Gastrointestinal: No Symptoms Neurological: Difficulty Walking Other: Reports: None - Physical Assessment NPO Status Date: 03/13/17 NPO Status Time: 00:00 Pulse: 72 O2 Sat by Pulse Oximetry: 99 Respiratory Rate: 16 Blood Pressure: 128/60 Temperature: 36.6 C Height: 1.65 m Weight: 80.422 kg ASA Class: 2 Mental Status: Alert & Oriented x3 Dentition: Reports: Broken Tooth/Teeth, Missing Tooth/Teeth, Caries Thyro-Mental Finger Breadths: 3 Mouth Opening Finger Breadths: 3 ROM/Head Extension: Full Lungs: Clear to Auscultation, Normal Respiratory Effort Cardiovascular: Regular Rate, Regular Rhythm - Allergies Allergies/Adverse Reactions: Allergies Allergy/AdvReac Type Severity Reaction Status Date / Time carbamazepine [From Tegretol] Allergy Cannot Verified 03/12/17 13:51 Remember ezetimibe [From Zetia] Allergy Cannot Verified 03/12/17 13:51 Remember haloperidol AdvReac Seizures Verified 03/12/17 13:51 trifluoperazine HCl AdvReac Seizures Verified 03/12/17 13:51 [From Stelazine] - Anesthesia Plan Pre-Op Medication Ordered: Beta Ruth Beta Ruth: Atenolol Med Last Dose Date: 03/13/17 Med Last Dose Time: 06:30 - Acknowledgements Anesthesia Type Planned: MAC Pt an Appropriate Candidate for the Planned Anesthesia: Yes Alternatives and Risks of Anesthesia Discussed w Pt/Guardian: Yes Pt/Guardian Understands and Agrees with Anesthesia Plan: Yes PreAnesthesia Questionnaire HEENT History: Reports: Impaired Vision, Other (See Below) Other HEENT History: impacted cerumen Cardiovascular History: Reports: Hypertension Respiratory History: Reports: None Gastrointestinal History: Reports: Bowel Obstruction, Chronic Constipation, Chronic Diarrhea, GERD, GI Bleed Genitourinary History: Reports: Other (See Below) Other Genitourinary History: UTI FORESTRY SCIENTIST History: Reports: None Musculoskeletal History: Reports: None Neurological History: Reports: Migraines Psychiatric History: Reports: Anxiety, Depression, Schizophrenia Other Psychiatric History: Family states patient hears voices and talks to them at times Endocrine/Metabolic History: Reports: Hypothyroidism Hematologic History: Reports: Anemia Immunologic History: Reports: None Oncologic (Cancer) History: Reports: None Dermatologic History: Reports: Psoriasis - Past Surgical History Head Surgeries/Procedures: Reports: None HEENT Surgical History: Reports: None Cardiovascular Surgical History: Reports: None GI Surgical History: Reports: Appendectomy Female Surgical History: Reports: Breast Implant Male Surgical History: Reports: None Endocrine Surgical History: Reports: None Neurological Surgical History: Reports: None Musculoskeletal Surgical History: Reports: None Oncologic Surgical History: Reports: None - SUBSTANCE USE Smoking Status *Q: Former Smoker (quit 7 years ago) Tobacco Use Within Last Twelve Months: No Second Hand Smoke Exposure: No Days Per Week of Alcohol Use: 0 Number of Drinks Per Day: 0 Total Drinks Per Week: 0 Recreational Drug Use History: No - HOME MEDS Home Medications: Home Meds Latanoprost [Latanoprost] 1 drop EYEBOTH DAILY 03/12/17 [History] Pantoprazole Sodium [Protonix] 40 mg PO DAILY 03/12/17 [History] Simvastatin [Zocor] 10 mg PO DAILY 03/12/17 [History] cloZAPine [Clozaril] 200 mg PO 1200 03/12/17 [History] cloZAPine [Clozaril] 200 mg PO QAM 03/12/17 [History] cloZAPine [Clozaril] 350 mg PO BEDTIME 03/12/17 [History] - CURRENT (IN HOUSE) MEDS Current Meds: Current Medications Lactated Ringer's (Ringers, Lactated) 1,000 mls @ 125 mls/hr IV ASDIRECTED NAEL Discontinued Medications Lactated Ringer's (Ringers, Lactated) 1,000 mls @ 125 mls/hr IV ASDIRECTED NAEL Stop: 07/18/16 23:00 Lidocaine/Sodium Bicarbonate (Buffered Lidocaine 1% In Ns 8.4%) 0.25 ml IV ONETIME PRN PRN Reason: Prior to IV Start Stop: 07/18/16 18:00 Sodium Chloride (Saline Flush) 10 ml FLUSH ASDIRECTED PRN PRN Reason: Keep Vein Open Stop: 07/18/16 18:00
[2017-03-13] MEDS ORDERED: Lidocaine 1% 4 ML ONE (10:02)
[2017-03-13] MEDS ORDERED: Midazolam 1 MG/ML 2 ML SDV ONE (10:02)
[2017-03-13] MEDS ORDERED: fentaNYL 100 MCG/2 ML SDV ONE (10:02)
[2017-03-13] MEDS ORDERED: Propofol 200 MG/20 ML SDV ONE (10:02)
--- NOTE | 2017-03-13 10:39 | PCM.OPNOTE ---
- General Post-Op/Procedure Note Date of Surgery/Procedure: 03/13/17 Operative Procedure(s): 1. Esophagogastroduodenoscopy with prepyloric and antral forceps biopsies;. as well as gastric polypectomy. 2. Diagnostic colonoscopy Findings: 1. Specks of red blood within the antrum. Large amount of bile within the body of the stomach. 2. Mild antritis, secondary to duodenal gastric bilious reflux 3. Gastric polyposis within the body of the stomach 4. Very poor bowel prep but no gross mass lesion seen within the colon and rectum Pre Op Diagnosis: Chronic anemia of unknown etiology Post-Op Diagnosis: 1. Gastric polyposis. 2. Duodenal gastric bilious reflux with mild antritis Anesthesia Technique: MAC, Moderate Sedation Primary Surgeon: Paul Barrera Pathology: 1. Prepyloric and antral biopsies. 2. Gastric polypectomy EBL in mLs: 0 Complications: None Condition: Good Free Text/Narrative:: After adequate IV sedation and analgesia was obtained with monitoring the patient was placed on her left side. Through a bite block a lubricated upper endoscope was inserted into the esophagus and advanced towards the stomach. Air was given here. There were a few fundic gland polyp seen. There were a few very small specks of red blood seen. The scope was then advanced towards the antrum which was slightly erythematous but there were no nasir erosions or ulcers. There was some erythematous changes within the pyloric channel. There was a large amount of bile within the stomach. Normally the stomach is empty after being nothing by mouth from midnight. Within the duodenum there were no mass lesions or inflammatory changes seen through the second portion. There were no ulcers. Biopsies were taken within the antrum. I removed a polyp for histologic evaluation. All the polyps which were glandular and about 5-6 mm in size. In the retroflexed view there was no hiatal hernia. The fundic and cardiac regions were otherwise unremarkable. The GE junction was normal. The body of the esophagus was normal as well. Photographs were taken for the patient and for the record. Perianal inspection and digital rectal examination were performed next. A lubricated colonoscope was passed through a slightly tortuous sigmoid to the cecum with abdominal pressure. The bowel preparation was poor. There was a large amount of liquid fecal material within the cecum which I could not relieve completely with aspiration. There were no gross lesions seen within the ascending colon and cecum. The transverse and descending colons were endoscopically normal as well. The sigmoid had slight thickening of the circular muscle but was unremarkable. The rectum in both views was endoscopically normal. There were no gross mass lesions or inflammatory changes seen throughout this limited examination. Photographs were taken for the patient for the medical record. Air was removed as I finished the procedure which she tolerated well.
[2017-03-13 11:03] VITALS: BP 114/67
== END 2017-03-13 11:50 | disposition home or self-care (01) ==
LOC: JD.SDS 08:50
PROVIDERS: ATTEND Surgery
DX: K29.50 Unspecified chronic gastritis without bleeding (principal); K31.7 Polyp of stomach and duodenum; F41.9 Anxiety disorder, unspecified; F32.9 Major depressive disorder, single episode, unspecified; I10 Essential (primary) hypertension; Z88.8 Allergy status to other drugs, medicaments and biological substances; Z79.899 Other long term (current) drug therapy; Z90.49 Acquired absence of other specified parts of digestive tract; Z98.890 Other specified postprocedural states; Z87.891 Personal history of nicotine dependence
CPT/HCPCS: 43239; 45378; J2250; J3010; J7120; 00740; 88305; J2704

== ENCOUNTER 2017-06-04 09:22 | Inpatient (IN) | payer MEDICARE, MEDICAID ==
[2017-06-04] MEDS ORDERED: Sodium Chloride 0.9% 1,000 ML IV ONE ×2 (10:29→13:22)
[2017-06-04] MEDS ORDERED: Ondansetron 4 MG/2 ML SDV IVPUSH ONE (10:29)
--- NOTE | 2017-06-04 10:35 | EDM.PDOC ---
ED HPI GENERAL MEDICAL PROBLEM - General Chief Complaint: Gastrointestinal Problem Stated Complaint: [facility] Time Seen by Provider: 06/04/17 09:29 Source of Information: Reports: Patient History Limitations: Reports: Physical Impairment (The patient has a history of paranoid schizophrenia, status post bilateral frontal lobotomy - she has some difficulty in responding to questions.) - History of Present Illness INITIAL COMMENTS - FREE TEXT/NARRATIVE: The patient states that she started vomiting around 22:00 last night. She has not had any diarrhea. No recent fever. She denies any recent spoiled food. No recent antibiotics. No recent travel. No similarly ill contacts. The patient denies taking any home treatments or remedies. The patient's blood pressure is noted to be depressed at 96/58 with a heart rate of 89 upon arrival to the ED. The patient's caregiver states that the patient's diet consists primarily of Diet Coke. The patient's PCP is Dr. Neetu Bryson. Middle Abdominal Pain Score (Numeric/FACES): 10 - Related Data Allergies Allergy/AdvReac Type Severity Reaction Status Date / Time carbamazepine [From Tegretol] Allergy Cannot Verified 03/12/17 13:51 Remember ezetimibe [From Zetia] Allergy Cannot Verified 03/12/17 13:51 Remember haloperidol AdvReac Seizures Verified 03/12/17 13:51 trifluoperazine HCl AdvReac Seizures Verified 03/12/17 13:51 [From Stelazine] Home Meds: Home Meds Latanoprost 1 drop EYEBOTH DAILY 03/12/17 [History] Pantoprazole Sodium [Protonix] 40 mg PO DAILY 03/12/17 [History] Simvastatin [Zocor] 10 mg PO DAILY 03/12/17 [History] cloZAPine [Clozaril] 200 mg PO 1200 03/12/17 [History] cloZAPine [Clozaril] 200 mg PO QAM 03/12/17 [History] cloZAPine [Clozaril] 350 mg PO BEDTIME 03/12/17 [History] Atenolol 25 mg PO DAILY 03/13/17 [History] Atenolol [Tenormin] 25 mg PO DAILY 06/04/17 [History] LORazepam [Ativan] 0.5 mg PO TID 06/04/17 [History] Levothyroxine [Synthroid] 88 mcg PO DAILY 06/04/17 [History] Pantoprazole Sodium [Protonix] 40 mg PO BID 06/04/17 [History] Saccharomyces Boulardii [Florastor] 250 mg PO BID 06/04/17 [History] Simvastatin [Zocor] 10 mg PO BEDTIME 06/04/17 [History] amLODIPine [Norvasc] 2.5 mg PO DAILY 06/04/17 [History] cloZAPine [Clozapine] 200 mg PO TID 06/04/17 [History] Past Medical History Cardiovascular History: Reports: High Cholesterol, Hypertension Gastrointestinal History: Reports: GERD Neurological History: Reports: Seizure Psychiatric History: Reports: Anxiety, Schizophrenia Endocrine/Metabolic History: Reports: Hypothyroidism Hematologic History: Reports: Anemia - Past Surgical History Head Surgeries/Procedures: Reports: Other (See Below) (Bilateral frontal lobotomy) GI Surgical History: Reports: Appendectomy Social & Family History - Family History Family Medical History: Noncontributory - Tobacco Use Smoking Status *Q: Former Smoker Years of Tobacco use: 11 Packs/Tins Daily: 3 Month Tobacco Last Used: Quit 2010 Second Hand Smoke Exposure: No - Caffeine Use Caffeine Use: Reports: Coffee, Soda - Alcohol Use Alcohol Use History: No - Recreational Drug Use Recreational Drug Use: No - Living Situation & Occupation Living situation: Reports: Single, with Family (Mother) Occupation: Unemployed ED ROS GENERAL - Review of Systems Review Of Systems: ROS reveals no pertinent complaints other than HPI. ED EXAM, GI/ABD - Physical Exam Exam: See Below Exam Limited By: No Limitations General Appearance: Alert, WD/WN, Mild Distress (Appears weak) Eyes: Bilateral: Normal Appearance, EOMI Ears: Normal External Exam, Hearing Grossly Normal Nose: Normal Inspection, No Blood Throat/Mouth: Normal Inspection, Normal Lips, Normal Voice, No Airway Compromise Head: Atraumatic, Normocephalic Neck: Normal Inspection, Full Range of Motion Respiratory/Chest: No Respiratory Distress, Lungs Clear, Normal Breath Sounds, No Accessory Muscle Use Cardiovascular: Normal Peripheral Pulses, Regular Rate, Rhythm, No Gallop, No JVD, No Murmur, No Rub GI/Abdominal Exam: Normal Bowel Sounds, Soft, No Organomegaly, No Distention, No Abnormal Bruit, No Mass, Tender (Mild, generalized) (Female) Exam: Deferred Rectal (Female) Exam: Deferred Back Exam: Normal Inspection, Full Range of Motion, NT Extremities: Normal Inspection, Normal Range of Motion, No Pedal Edema, Normal Capillary Refill Neurological: Alert, No Motor/Sensory Deficits, Slow to Respond Psychiatric: Normal Affect Skin Exam: Warm, Dry, Intact, Normal Color, Other (Excoriations and (likely) Ann-Marie in the intertriginous spaces under the breasts and groin.) EKG INTERPRETATION EKG Date: 06/04/17 Time: 10:48 Rhythm: NSR Rate (Beats/Min): 86 [place]: Normal P-Wave: Present (1st degree AVB) QRS: Normal ST-T: Normal QT: Normal Comparison: NA - No Prior EKG Course - Vital Signs Last Recorded V/S: Last Vital Signs Temp 36.1 C 06/04/17 09:26 Pulse 89 06/04/17 09:26 Resp 16 06/04/17 09:26 BP 96/58 L 06/04/17 09:26 Pulse Ox 97 06/04/17 09:26 Orthostatic Blood Pressure [ 74/37 Standing] Orthostatic Blood Pressure [ 96/65 Sitting] Orthostatic Blood Pressure [ 101/63 Supine] - Orders/Labs/Meds Orders: Active Orders 24 hr Category Date Time Status EKG Documentation Completion [RC] STAT Care 06/04/17 10:28 Active Insert Caro Catheter [Insert Urinary Catheter] [OM.PC] Care 06/04/17 11:00 Ordered Stat Orthostatic Vital Signs [RC] STAT Care 06/04/17 10:28 Active Orthostatic Vital Signs [RC] STAT Care 06/04/17 11:31 Active Urinary Catheter Assessment [RC] ASDIRECTED Care 06/04/17 11:00 Active Labs: Laboratory Tests 06/04/17 06/04/17 06/04/17 Range/Units 11:00 11:00 11:00 WBC 12.87 H (3.98-10.04) K/mm3 RBC 4.09 (3.98-5.22) M/mm3 Hgb 11.3 (11.2-15.7) gm/L Hct 33.0 L (34.1-44.9) % MCV 80.7 (79.4-94.8) fl MCH 27.6 (25.6-32.2) pg MCHC 34.2 (32.2-35.5) g/dl RDW Std Deviation 42.4 (36.4-46.3) fL Plt Count 328 (182-369) K/mm3 MPV 8.8 L (9.4-12.3) fl Neutrophils % (Manual) 74 H (40-60) % Band Neutrophils % 6 (0-10) % Lymphocytes % (Manual) 12 L (20-40) % Atypical Lymphs % 0 % Monocytes % (Manual) 8 (2-10) % Eosinophils % (Manual) 0 L (0.7-5.8) % Basophils % (Manual) 0 L (0.1-1.2) Platelet Estimate Adequate RBC Morph Comment Normal Sodium 126 L (136-145) mEq/L Potassium 3.7 (3.5-5.1) mEq/L Chloride 88 L (98-107) mEq/L Carbon Dioxide 27 (21-32) mEq/L Anion Gap 14.7 (5-15) BUN 20 H (7-18) mg/dL Creatinine 2.2 H (0.55-1.02) mg/dL Est Cr Clr Drug Dosing 23.86 mL/min Estimated GFR (MDRD) 23 (>60) mL/min BUN/Creatinine Ratio 9.1 L (14-18) Glucose 125 H (80-115) mg/dL Lactic Acid 2.5 H (0.4-2.0) mmol/L Calcium 9.0 (8.5-10.1) mg/dL Magnesium 1.8 (1.8-2.4) mg/dl Total Bilirubin 0.7 (0.2-1.0) mg/dL AST 12 L (15-37) U/L ALT 15 (14-59) U/L Alkaline Phosphatase 84 (46-116) U/L Troponin I < 0.017 (0.00-0.056) ng/mL Total Protein 7.1 (6.4-8.2) g/dl Albumin 3.4 (3.4-5.0) g/dl Globulin 3.7 gm/dL Albumin/Globulin Ratio 0.9 L (1-2) Urine Color (Yellow) Urine Appearance (Clear) Urine pH (5.0-8.0) Ur Specific [place] (1.005-1.030) Urine Protein (Negative) Urine Glucose (UA) (Negative) Urine Ketones (Negative) Urine Occult Blood (Negative) Urine Nitrite (Negative) Urine Bilirubin (Negative) Urine Urobilinogen (0.2-1.0) Ur Leukocyte Esterase (Negative) Urine RBC (0-5) /hpf Urine WBC (0-5) /hpf Ur Epithelial Cells (0-5) /hpf Ur Squamous Epith Cells (0-5) /hpf Urine Bacteria (FEW) /hpf Hyaline Casts (0-5) /lpf Urine Mucus (FEW) /hpf Urine HCG, Qual (NEGATIVE) 06/04/17 06/04/17 Range/Units 11:10 11:10 WBC (3.98-10.04) K/mm3 RBC (3.98-5.22) M/mm3 Hgb (11.2-15.7) gm/L Hct (34.1-44.9) % MCV (79.4-94.8) fl MCH (25.6-32.2) pg MCHC (32.2-35.5) g/dl RDW Std Deviation (36.4-46.3) fL Plt Count (182-369) K/mm3 MPV (9.4-12.3) fl Neutrophils % (Manual) (40-60) % Band Neutrophils % (0-10) % Lymphocytes % (Manual) (20-40) % Atypical Lymphs % % Monocytes % (Manual) (2-10) % Eosinophils % (Manual) (0.7-5.8) % Basophils % (Manual) (0.1-1.2) Platelet Estimate RBC Morph Comment Sodium (136-145) mEq/L Potassium (3.5-5.1) mEq/L Chloride (98-107) mEq/L Carbon Dioxide (21-32) mEq/L Anion Gap (5-15) BUN (7-18) mg/dL Creatinine (0.55-1.02) mg/dL Est Cr Clr Drug Dosing mL/min Estimated GFR (MDRD) (>60) mL/min BUN/Creatinine Ratio (14-18) Glucose (80-115) mg/dL Lactic Acid (0.4-2.0) mmol/L Calcium (8.5-10.1) mg/dL Magnesium (1.8-2.4) mg/dl Total Bilirubin (0.2-1.0) mg/dL AST (15-37) U/L ALT (14-59) U/L Alkaline Phosphatase (46-116) U/L Troponin I (0.00-0.056) ng/mL Total Protein (6.4-8.2) g/dl Albumin (3.4-5.0) g/dl Globulin gm/dL Albumin/Globulin Ratio (1-2) Urine Color Vivian H (Yellow) Urine Appearance Clear (Clear) Urine pH 5.5 (5.0-8.0) Ur Specific [place] 1.025 (1.005-1.030) Urine Protein 2+ H (Negative) Urine Glucose (UA) Negative (Negative) Urine Ketones Trace H (Negative) Urine Occult Blood Negative (Negative) Urine Nitrite Negative (Negative) Urine Bilirubin Negative (Negative) Urine Urobilinogen 0.2 (0.2-1.0) Ur Leukocyte Esterase Negative (Negative) Urine RBC Not seen (0-5) /hpf Urine WBC 0-5 (0-5) /hpf Ur Epithelial Cells 0-5 (0-5) /hpf Ur Squamous Epith Cells 0-5 (0-5) /hpf Urine Bacteria Not seen (FEW) /hpf Hyaline Casts 10-20 H (0-5) /lpf Urine Mucus Not seen (FEW) /hpf Urine HCG, Qual Negative (NEGATIVE) Meds: Medications Discontinued Medications Generic Name Dose Route Start Last Admin Trade Name Jluisq PRN Reason Stop Dose Admin Sodium Chloride 1,000 mls @ 999 mls/hr 06/04/17 10:29 06/04/17 10:49 Normal Saline IV 06/04/17 11:29 999 mls/hr ONETIME ONE Administration Ondansetron HCl 4 mg 06/04/17 10:29 06/04/17 10:47 Zofran IVPUSH 06/04/17 10:30 4 mg ONETIME ONE Administration - Re-Assessments/Exams Free Text/Narrative Re-Assessment/Exam: 06/04/17 10:59 Two-view chest radiograph appears to be grossly normal. Cardiac silhouette is within normal limits. No pulmonary vascular congestion. No pleural effusions. No focal infiltrate. No pneumothorax. Formal read per the Radiologist pending. 06/04/17 11:29 The patient is orthostatic. 1 L NS was already ordered; we will recheck orthostatics when it is finished. 06/04/17 11:46 The patient's WBC count is elevated at 12.87 with 6% bandemia, concerning for a bacterial infection, although no obvious sources and found thus far. Her sodium is depressed at 126, and her creatinine elevated at 2.2. Her lactic acid level is elevated at 2.5, although her bicarbonate level is normal at 27. The patient' s renal function was normal at 6/0.8 on 01/28/2017. 06/04/17 12:56 The patient is still orthostatic following 1 L NS. Given the aforementioned laboratory abnormalities, the patient will need to be admitted. 06/04/17 13:04 The above was discussed with the patient's caregiver, who agrees to the patient being admitted. 06/04/17 13:[address] Mauro at 13:05. He agrees to the patient being admitted. Departure - Departure Time of Disposition: 13:07 Disposition: Admitted As Inpatient 66 Condition: Fair Clinical Impression: Acute kidney injury, Candidal dermatitis, Hyponatremia, Leukocytosis, Gastroenteritis - Discharge Information - My Orders Last 24 Hours: My Active Orders 06/04/17 10:28 EKG Documentation Completion [RC] STAT Orthostatic Vital Signs [RC] STAT 06/04/17 11:00 Insert Caro Catheter [Insert Urinary Catheter] [OM.PC] Stat Urinary Catheter Assessment [RC] ASDIRECTED 06/04/17 11:31 Orthostatic Vital Signs [RC] STAT - Assessment/Plan Last 24 Hours: My Active Orders 06/04/17 10:28 EKG Documentation Completion [RC] STAT Orthostatic Vital Signs [RC] STAT 06/04/17 11:00 Insert Caro Catheter [Insert Urinary Catheter] [OM.PC] Stat Urinary Catheter Assessment [RC] ASDIRECTED 06/04/17 11:31 Orthostatic Vital Signs [RC] STAT
--- NOTE | 2017-06-04 11:43 | CR ---
Chest: Twp views of the chest were obtained. Comparison: No prior study. Heart size and mediastinum are normal. Mild tortuosity of the thoracic aorta is incidentally noted. Bone density is noted between the second and third rib on the right side which is felt to be normal variant. Minimal parenchymal density is seen within the right midlung most likely due to atelectasis. Lungs otherwise are clear. Bony structures appear within normal limits for the patient's age. Impression: 1. Incidental findings. Diagnostic code #2
[2017-06-04] MEDS ORDERED: Pneumococcal Polyvalent-23 Vaccine 0.5 ML SDV IM ONE (15:08)
[2017-06-04] MEDS ORDERED: FLU Vacc QS 2017-18 (6mos UP)/PF 60 MCG/0.5 ML Syringe IM ONE (15:15)
[2017-06-04] MEDS: Scopolamine 1 MG Transdermal Patch TRDERM PRN (15:27)
[2017-06-04] MEDS ORDERED: Albuterol/Ipratropium 3.0-0.5 MG/3 ML Neb Soln NEB PRN (15:34)
[2017-06-04] MEDS ORDERED: Bisacodyl 5 MG Tab PO PRN (15:34)
[2017-06-04] MEDS ORDERED: Docusate Sodium 100 MG Cap PO PRN (15:34)
[2017-06-04] MEDS ORDERED: Ondansetron 4 MG/2 ML SDV IV PRN (15:34)
[2017-06-04] MEDS ORDERED: Ondansetron 4 MG Tab.DIS PO PRN (15:34)
[2017-06-04] MEDS ORDERED: Sodium Chloride 0.9% 1,000 ML IV SCH (15:45)
[2017-06-04] MEDS ORDERED: MAGNESIUM SULFATE IV ONE (16:15)
[2017-06-04] MEDS ORDERED: [UNRECOGNIZED DRUG - OTHER] IV ONE (16:15)
[2017-06-04] MEDS ORDERED: WATER IV ONE (16:15)
--- NOTE | 2017-06-04 16:30 | PCM.HP ---
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 She does have a history of paranoid schizophrenia and has a had a reported bilateral frontal lobotomy which leads to some difficulty in answering questions. She denies any diarrhea, fever, recent spoiled food, recent antibiotics, recent travel, or ill contacts. She has not taken any home medications treat this nausea and vomiting. BP is noted to be 96/58 with a heart rate of 89 upon arrival. Patient's caregiver states that the patient's diet consists mainly of diet Coke. Upon arrival temp was 36.1C. Pulse 89. Respirations 16. Blood pressure 96/ 58. Pulse ox 97%. His was obtained which shows a sinus rhythm at 86 bpm. A first-degree AV block is noted. She is found to be orthostatic with a blood pressure 74/37 standing, 96/65 sitting, 101/63 supine. Labs are ordered. The CBC is 12.87. Hemoglobin on the low end of normal at 11.3. Hematocrit low at 33.0. She was normocytic. Platelet counts good at 328,000. Neutrophils are elevated at 74%. Band neutrophils are noted to be 6%. Sodium is quite low at 126. Potassium is on the low end of good at 3.7. Chloride is low at 88. Anion gap is on the high end of normal at 14.7. BUN is slightly elevated at 20. Creatinine is high at 2.2. EGFR is 23. Previous charts from 01/28/2017 showed normal renal function. Glucose is 125. Lactic acid is high at 2.5. Also was 9.0. Negative is on the low end of normal at 1.8. Bilirubin 0.7. AST is 12, ALT 15, alkaline phosphatase 84. Troponin is negative at less than 0.017. Albumin is on the low end of normal at 3.4. UA is obtained and is negative, however it is noted to be dianelys in color with 2+ protein and trace ketones. Chest x-ray is grossly normal however, a minimal prior cold density is seen within the right midlung most likely due to atelectasis per Dr. Catalan report. She was given a 1 L fluid bolus along with 4 mg Zofran for nausea. The patient's lead care manager was contacted to discuss findings and it was decided the patient would be admitted. She carries a history of: HLD, HTN, GERD, seizure, anxiety, schizophrenia, hypothyroidism, anemia. She's had a bilateral frontal lobectomy and appendectomy. She is a former smoker. 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 She subsequently admitted to the medical floor. She is a full code. Her PCP is Dr. Bryson at [facility]. She is a client at [facility] here in [facility]. She also sees Dr. Greenberg for psychiatry. Middle Abdominal Pain Score (Numeric/FACES): 10 - Related Data Allergies/Adverse Reactions: Allergies Allergy/AdvReac Type Severity Reaction Status Date / Time carbamazepine [From Tegretol] Allergy Cannot Verified 03/12/17 13:51 Remember ezetimibe [From Zetia] Allergy Cannot Verified 03/12/17 13:51 Remember haloperidol AdvReac Seizures Verified 03/12/17 13:51 trifluoperazine HCl AdvReac Seizures Verified 03/12/17 13:51 [From Stelazine] Home Medications: Home Meds Latanoprost 1 drop EYEBOTH BEDTIME 03/12/17 [History] cloZAPine [Clozaril] 350 mg PO BEDTIME 03/12/17 [History] Atenolol [Tenormin] 25 mg PO DAILY 06/04/17 [History] LORazepam [Ativan] 0.5 mg PO TID 06/04/17 [History] Levothyroxine [Synthroid] 88 mcg PO DAILY 06/04/17 [History] Pantoprazole Sodium [Protonix] 40 mg PO BID 06/04/17 [History] Simvastatin [Zocor] 10 mg PO BEDTIME 06/04/17 [History] amLODIPine [Norvasc] 2.5 mg PO DAILY 06/04/17 [History] cloZAPine [Clozapine] 200 mg PO BID 06/04/17 [History] Past Medical History HEENT History: Reports: Impaired Vision, Other (See Below) Other HEENT History: impacted cerumen Cardiovascular History: Reports: High Cholesterol, Hypertension Respiratory History: Reports: None Gastrointestinal History: Reports: GERD Genitourinary History: Reports: Other (See Below) Other Genitourinary History: UTI 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 Psychiatric History: Reports: Anxiety, Schizophrenia Other Psychiatric History: Patient states "in [place], [place] for 20 Endocrine/Metabolic History: Reports: Hypothyroidism Hematologic History: Reports: Anemia Other Hematologic History: Low magnesium Immunologic History: Reports: None Oncologic (Cancer) History: Reports: None Dermatologic History: Reports: Other (See Below), Psoriasis Other Dermatologic History: "chronic pruritic rash" - Past Surgical History Head Surgeries/Procedures: Reports: Other (See Below) HEENT Surgical History: Reports: None GI Surgical History: Reports: Appendectomy Female Surgical History: Reports: Breast Implant Musculoskeletal Surgical History: Reports: None Oncologic Surgical History: Reports: None Social & Family History - Family History Family Medical History: Noncontributory - Tobacco Use Smoking Status *Q: Never Smoker Years of Tobacco use: 11 Packs/Tins Daily: 3 Used Tobacco, but Quit: No Month Tobacco Last Used: Quit 2010 Second Hand Smoke Exposure: No - Caffeine Use Caffeine Use: Reports: None - Alcohol Use Days Per Week of Alcohol Use: 0 Number of Drinks Per Day: 0 Total Drinks Per Week: 0 - Recreational Drug Use Recreational Drug Use: No - Living Situation & Occupation Living situation: Reports: Single, with Family (Mother) Occupation: Unemployed H&P Review of Systems - Review of Systems: Review Of Systems: See Below General: Reports: Weakness, Fatigue. Denies: Fever, Chills, Malaise, Diaphoresis HEENT: Reports: Headaches (occasional ). Denies: Ear Pain, Eye Pain, Glasses, Hearing Changes, Sinus Congestion, Sore Throat, Vertigo Pulmonary: Reports: No Symptoms. Denies: Shortness of Breath, Wheezing, Pleuritic Chest Pain, Cough, Sputum Cardiovascular: Reports: No Symptoms. Denies: Chest Pain, Palpitations, Dyspnea on Exertion, Edema Gastrointestinal: Reports: Abdominal Pain, Diarrhea, Nausea, Vomiting. Denies: Constipation, Decreased Appetite, Hematemesis, Hematochezia, Melena Genitourinary: Reports: No Symptoms. Denies: Dysuria, Frequency, Burning, Pain , Urgency Musculoskeletal: Reports: No Symptoms Skin: Reports: No Symptoms Psychiatric: Reports: No Symptoms Neurological: Reports: No Symptoms Hematologic/Lymphatic: Reports: No Symptoms Immunologic: Reports: No Symptoms Exam - Exam Exam: See Below - Vital Signs Vital Signs: Last Vital Signs Temp 98.2 F 06/04/17 15:02 Pulse 93 06/04/17 15:02 Resp 20 06/04/17 15:02 BP 109/62 06/04/17 15:02 Pulse Ox 93 L 06/04/17 15:02 Weight: 157 lb 4.8 oz - Exam General: Alert, Oriented, Cooperative, Moderate Distress HEENT: Conjunctiva Clear, EACs Clear, EOMI, Hearing Intact, Nares Patent, Normal Nasal Septum, Posterior Pharynx Clear, TMs Clear, Other (dry oral mucosa ), PERRLA Neck: Supple, Trachea Midline Lungs: Clear to Auscultation, Normal Respiratory Effort Cardiovascular: Regular Rate, Regular Rhythm GI/Abdominal Exam: Soft, No Organomegaly, No Distention, No Abnormal Bruit, No Mass, Pelvis Stable, Guarding, Tender (generalized tenderness ), Abnormal Bowel Sounds (hyperactive ) (Female) Exam: Deferred Rectal (Female) Exam: Deferred Back Exam: Normal Inspection, Full Range of Motion Extremities: Normal Range of Motion, Non-Tender, No Pedal Edema, Normal Capillary Refill Peripheral Pulses: 2+: Radial (L), Radial (R), Posterior Tibial (L), Posterior Tibial (R), Dorsalis Pedis (L), Dorsalis Pedis (R) Skin: Warm, Other (scattered excoriations and dry flaky skin in various locations. Especally prevalent in groin and under breast. Lesion to right face anterior and inferior to ear which is erythemic and draining. ) Neurological: Cranial Nerves Intact (grossly) Neuro Extensive - Mental Status: Alert, Oriented x3, Normal Mood/Affect Neuro Extensive - Motor, Sensory, Reflexes: CN II-XII Intact (grossly ) Psychiatric: Alert, Normal Affect - Patient Data Result Diagrams: 06/04/17 11:00 06/04/17 11:00 *Q Meaningful Use (ADM) - VTE *Q VTE Criteria *Q: - Stroke *Q Stroke Criteria *Q: - AMI *Q AMI Criteria *Q: - Problem List (1) Nausea and vomiting SNOMED Code(s): 98443403 ICD Code: R11.2 - NAUSEA WITH VOMITING, UNSPECIFIED Status: Acute Priority: High Current Visit: Yes Qualifiers: Vomiting type: unspecified (2) Acute kidney injury SNOMED Code(s): 81080678 ICD Code: N17.9 - ACUTE KIDNEY FAILURE, UNSPECIFIED Status: Acute Priority: High Current Visit: Yes (3) Candidal dermatitis SNOMED Code(s): 24634611 ICD Code: B37.2 - CANDIDIASIS OF SKIN AND NAIL Status: Acute Priority: High Current Visit: Yes (4) Gastroenteritis SNOMED Code(s): 34916212 ICD Code: K52.9 - NONINFECTIVE GASTROENTERITIS AND COLITIS, UNSPECIFIED Status: Acute Priority: High Current Visit: Yes (5) Hyponatremia SNOMED Code(s): 75291388 ICD Code: E87.1 - HYPO-OSMOLALITY AND HYPONATREMIA Status: Acute Priority : High Current Visit: Yes (6) Leukocytosis SNOMED Code(s): 942178008 ICD Code: D72.829 - ELEVATED WHITE BLOOD CELL COUNT, UNSPECIFIED Status: Acute Priority: Medium Current Visit: Yes Qualifiers: Leukocytosis type: unspecified Qualified Code(s): D72.829 - Elevated white blood cell count, unspecified (7) Dehydration SNOMED Code(s): 57954955 ICD Code: E86.0 - DEHYDRATION Status: Acute Priority: High Current Visit: Yes (8) Schizophrenia SNOMED Code(s): 98260072 ICD Code: F20.9 - SCHIZOPHRENIA, UNSPECIFIED Status: Chronic Priority: Medium Current Visit: Yes Qualifiers: Schizophrenia type: paranoid schizophrenia Qualified Code(s): F20.0 - Paranoid schizophrenia Problem List Initiated/Reviewed/Updated: Yes Orders Last 24hrs: Active Orders 24 hr Category Date Time Status Admission Status [Patient Status] [ADT] Routine ADT 06/04/17 14:19 Active Ambulate [RC] ASDIRECTED Care 06/04/17 15:34 Active Ambulate [RC] PER UNIT ROUTINE Care 06/04/17 15:39 Active Height and Weight [RC] DAILY Care 06/04/17 15:34 Active Intake and Output [RC] QSHIFT Care 06/04/17 15:38 Active May Shower [RC] ASDIRECTED Care 06/04/17 15:34 Active Oxygen Therapy [RC] PRN Care 06/04/17 15:34 Active Pulse Oximetry [RC] PRN Care 06/04/17 15:39 Active RT Aerosol Therapy [RC] ASDIRECTED Care 06/04/17 15:41 Active Up With Assistance [RC] ASDIRECTED Care 06/04/17 15:34 Active VTE/DVT Education [RC] PER UNIT ROUTINE Care 06/04/17 15:34 Active Vital Signs [RC] Q4H Care 06/04/17 15:34 Active Consult to Case Management [CONS] Routine Cons 06/04/17 15:34 Active Consult to Product Trainer [CONS] Routine Cons 06/04/17 15:34 Active OT Evaluation and Treatment [CONS] Routine Cons 06/04/17 15:34 Active PT Evaluation and Treatment [CONS] Routine Cons 06/04/17 15:34 Active Nothing per Oral Now Diet [DIET] Diet 06/04/17 Dinner Active Abdomen 2V AP Flat Upright [CR] Urgent Exams 06/04/17 15:32 Ordered BASIC METABOLIC PANEL,BMP [CHEM] AM Lab 06/05/17 05:11 Ordered BASIC METABOLIC PANEL,BMP [CHEM] AM Lab 06/06/17 05:11 Ordered BASIC METABOLIC PANEL,BMP [CHEM] AM Lab 06/07/17 05:11 Ordered BASIC METABOLIC PANEL,BMP [CHEM] AM Lab 06/08/17 05:11 Ordered CBC WITH AUTO DIFF [HEME] AM Lab 06/05/17 05:11 Ordered CBC WITH AUTO DIFF [HEME] AM Lab 06/06/17 05:11 Ordered CBC WITH AUTO DIFF [HEME] AM Lab 06/07/17 05:11 Ordered CBC WITH AUTO DIFF [HEME] AM Lab 06/08/17 05:11 Ordered CRP [C-REACTIVE PROTEIN] [CHEM] AM Lab 06/05/17 05:11 Ordered CRP [C-REACTIVE PROTEIN] [CHEM] AM Lab 06/06/17 05:11 Ordered CRP [C-REACTIVE PROTEIN] [CHEM] AM Lab 06/07/17 05:11 Ordered CRP [C-REACTIVE PROTEIN] [CHEM] AM Lab 06/08/17 05:11 Ordered CRP [C-REACTIVE PROTEIN] [CHEM] Routine Lab 06/04/17 16:00 Ordered CULTURE WOUND [RM] Routine Lab 01/16/18 16:01 Uncollected LACTIC ACID [CHEM] Routine Lab 06/04/17 16:00 Ordered MAGNESIUM [CHEM] AM Lab 06/05/17 05:11 Ordered MAGNESIUM [CHEM] AM Lab 06/06/17 05:11 Ordered MAGNESIUM [CHEM] AM Lab 06/07/17 05:11 Ordered MAGNESIUM [CHEM] AM Lab 06/08/17 05:11 Ordered Acetaminophen [Tylenol] Med 06/04/17 15:34 Active 650 mg PO Q4H PRN Albuterol/Ipratropium [DuoNeb 3.0-0.5 MG/3 ML] Med 06/04/17 15:34 Active 3 ml NEB Q4H PRN Bisacodyl [Dulcolax] Med 06/04/17 15:34 Active 5 mg PO DAILY PRN Docusate Sodium [Colace] Med 06/04/17 15:34 Active 100 mg PO BID PRN Docusate Sodium/Sennosides [Senna Plus] Med 06/04/17 15:34 Active 1 tab PO BID PRN Magnesium Rep Pharmacy to Dose [Pharmacy to Dose - Med 06/04/17 16:00 Pending Magnesium Replacement] 1 dose .XX ASDIRECTED Nystatin [Nystop] Med 06/04/17 21:00 Active 2 gm TOP TID Ondansetron [Zofran ODT] Med 06/04/17 15:34 Active 4 mg PO Q6H PRN Ondansetron [Zofran] Med 06/04/17 15:34 Active 4 mg IV Q4H PRN Pantoprazole [ProTONIX IV] Med 06/04/17 18:00 Active 40 mg IVPUSH Q12H Potassium Rep Pharmacy to Dose [Pharmacy to Dose - Med 06/04/17 16:00 Pending Potassium Replacement] 1 dose .XX ASDIRECTED Premix Bag 1 bag Med 06/04/17 16:15 Active Magnesium Sulfate/Water [Magnesium Sulfate 2 GM in Water 50 ML] 50 ml IV ONETIME Remove Patch Med 06/07/17 15:30 Active 1 ea TRDERM Q72H Scopolamine Med 06/04/17 15:21 Active 1 each TRDERM Q72H PRN Sodium Chloride 0.9% [Normal Saline] 1,000 ml Med 06/04/17 15:45 Active IV ASDIRECTED Resuscitation Status Routine Resus Stat 06/04/17 15:34 Ordered Medication Orders Acetaminophen (Tylenol) 650 mg PO Q4H PRN PRN Reason: Pain (Mild 1-3)/fever Albuterol/Ipratropium (Duoneb 3.0-0.5 Mg/3 Ml) 3 ml NEB Q4H PRN PRN Reason: Shortness Of Breath/wheezing Bisacodyl (Dulcolax) 5 mg PO DAILY PRN PRN Reason: Constipation Docusate Sodium (Colace) 100 mg PO BID PRN PRN Reason: Constipation Sodium Chloride (Normal Saline) 1,000 mls @ 75 mls/hr IV ASDIRECTED [facility] Premix 1 bag/ Magnesium (Sulfate) 50 mls @ 50 mls/hr IV ONETIME ONE Stop: 06/04/17 17:14 Magnesium Sulfate (Pharmacy To Dose - Magnesium Replacement) 1 dose .XX ASDIRECTED [facility] Miscellaneous Information (Remove Patch) 1 ea TRDERM Q72H [facility] Nystatin (Nystop) 2 gm TOP TID [facility] Stop: 06/18/17 21:01 Ondansetron HCl (Zofran Odt) 4 mg PO Q6H PRN PRN Reason: nausea, able to take PO Ondansetron HCl (Zofran) 4 mg IV Q4H PRN PRN Reason: Nausea/Vomiting Pantoprazole Sodium (Protonix Iv) 40 mg IVPUSH Q12H [facility] Potassium Chloride (Pharmacy To Dose - Potassium Replacement) 1 dose .XX ASDIRECTED [facility] Scopolamine (Scopolamine) 1 each TRDERM Q72H PRN PRN Reason: Nausea/Vomiting Last Admin: 06/04/17 15:27 Dose: 1 each Senna/Docusate Sodium (Senna Plus) 1 tab PO BID PRN PRN Reason: Constipation Assessment/Plan Comment:: I/P: Acute: SBO -Generalized abdominal pain -N&V since last night, afebrile, leukocytosis, no questionable food recently , no recent travel -Zofran given in ED, will add scopolamine patch -Abdominal x-rays (06/04/16) - Probably dilated small bowel loops compatible with mid to distal small bowel obstruction. -Haziness within the pelvis as described. -Hx/o SOB - hospitalized last January -CRP 13.0 -PRN antiemetics -Reglan 5mg Q8hr due to possible concern over other medications -NPO - advance diet as tolerated -D5NS for fluids -NG tube -Ambulate QID -Consider CT scan if needed -Consider general surgery consult if needed - will treat conservatively for now Dehydration -Poor oral intake - caregiver reports diet is mostly Diet Coke -Hct 33, creatinine 2.2, orthostatic hypotension in ED, dry mucous membranes , dianelys urine -1L fluid bolus in ED -Fluids as ordered -Associate Professor Physician consult Candidal dermatitis vs hidradenitis suppurativa vs. bacterial infection -Lesions noted scattered over body but especially in groin and under breasts -Patient avoids bathing/showers -WBC 12.87; CRP 13.0 -Pt. reports she is seeing dermatology for this and "has a cream" - no cream noted on home med list -Caregiver to call and update what cream pt. takes - she has not been utilizing it -Nystatin powder -Culture wound Hyponatremia -Sodium 126 in ED -1L fluid bolus given -IV fluids as ordered -Consider thermotabs -Monitor Chronic: HLD HTN - stable, home and PRN BP meds as needed GERD - Protonix Seizures- home meds Anxiety - home ativan Schizophrenia - home meds Hypothyroidism Anemia - stable Plan Admit to medical floor PT/OT CM/SW for discharge planning PT/OT Routine AM labs Home medications Other orders as indicated above. She has a new general dentist who was approved by the court earlier this year and is listed in her chart. The general dentist reports she is just trying now to get things in order and improve follow-up, etc. Code status: Full code. PCP: Dr. Bryson at [facility]. Psychiatrist: Dr. Greenberg. [facility] also assists her.
--- NOTE | 2017-06-04 17:10 | CR ---
Abdomen: Upright view of the abdomen was obtained as well as supine study. Comparison: Prior exam of 01/24/17. Prominent small bowel dilatation is seen with differential air-fluid levels. Haziness noted within the pelvis which could represent fluid-filled bowel loops, ascites or urine distended bladder. No free air is seen. Bony structures are unremarkable. Several calcifications are seen within the pelvis which are likely due to phleboliths. Impression: 1. Prominently dilated small bowel loops compatible with mid to distal small bowel obstruction. 2. Haziness within the pelvis as described above. Diagnostic code #5
[2017-06-04] MEDS: Pantoprazole 40 MG Vial IVPUSH SCH (17:26)
--- NOTE | 2017-06-04 18:29 | CR ---
Chest: Portable view of the chest was obtained. Comparison: Prior chest x-ray of 01/23/17. Heart size is normal. Tortuous thoracic aorta is seen. Slight atelectasis within right midlung and left lower lung are noted. Lungs otherwise are clear. Nasogastric tube is seen. Tip lies within stomach. Scattered degenerative change is noted within the spine. Impression: 1. Tip of ND tube within the stomach. 2. Mild atelectasis. Diagnostic code #2
[2017-06-04] MEDS: Latanoprost 0.005% Ophth Soln 2.5 ML Bottle EYEBOTH SCH (20:27)
[2017-06-04] MEDS: Metoclopramide 10 MG/2 ML SDV IVPUSH SCH (20:27)
[2017-06-04] MEDS: Dextrose 5%-0.9% NaCl 1,000 ML IV SCH (20:33)
[2017-06-04] MEDS: LORazepam 2 MG/ML SDV IVPUSH SCH (20:36)
[2017-06-04] MEDS: Nystatin Topical Powder 15 GM Bottle TOP SCH ×2 (20:45→21:01)
[2017-06-04] MEDS ORDERED: cloZAPine 100 MG Tab PO SCH (21:00)
[2017-06-04] MEDS ORDERED: LORazepam 0.5 MG Tab PO SCH (21:00)
[2017-06-04] MEDS ORDERED: cloZAPine 100 MG Tab PO ONE (23:30)
[2017-06-05] MEDS: LORazepam 2 MG/ML SDV IVPUSH SCH ×3 (03:00→18:35)
[2017-06-05] MEDS: Metoclopramide 10 MG/2 ML SDV IVPUSH SCH ×3 (03:00→18:07)
[2017-06-05] MEDS: Levothyroxine 88 MCG Tab PO SCH (06:41)
[2017-06-05] MEDS: Dextrose 5%-0.9% NaCl 1,000 ML IV SCH ×2 (06:41→20:30)
[2017-06-05] MEDS: Pantoprazole 40 MG Vial IVPUSH SCH ×2 (06:41→18:07)
[2017-06-05] MEDS ORDERED: LORazepam 2 MG/ML SDV IVPUSH SCH (07:00)
--- NOTE | 2017-06-05 07:21 | PCM.PN ---
- General Info Date of Service: 06/05/17 Admission Dx/Problem (Free Text): Admission Diagnosis/Problem Admission Diagnosis/Problem Orthostatic hypotension Nursing reports patient had a fall in the bathroom this morning around 0530. She was trying to pull up her bottoms, lost her balance and fell into the wall, striking her left elbow, sustaining a superificial abrasion and her head. She does complain of a MIX but no dizziness. She is A&O x [address] will be ordered. No other injuries or pain reported by patient at present time. She tells me she is "tired" but no other complaints. NG tube is in place with 1700 out since insertion last evening. No further vomiting. No BM. Functional Status: Reports: Pain Controlled, Ambulating, Urinating, Incentive Spirometry. Denies: Tolerating Diet (NPO with NG tube) - Review of Systems General: Reports: Weakness, Fatigue HEENT: Reports: Headaches (s/p fall hitting head on the wall in bathroom) Pulmonary: Reports: No Symptoms. Denies: Shortness of Breath, Cough Cardiovascular: Reports: No Symptoms. Denies: Chest Pain, Palpitations, Lightheadedness Gastrointestinal: Reports: Abdominal Pain, Other (NG tube). Denies: Diarrhea, Nausea, Vomiting Musculoskeletal: Reports: No Symptoms Skin: Reports: Rash (to all skin folds) Neurological: Reports: Headache (mild ), Other (slow to respond at times- feel this is her usual baseline) Psychiatric: Denies: Confusion, Mood Lability (none as of this morning), Anxiety - Patient Data Vitals - Most Recent: Last Vital Signs Temp 97.9 F 06/05/17 03:14 Pulse 80 06/05/17 05:44 Resp 16 06/05/17 05:44 BP 102/49 L 06/05/17 05:44 Pulse Ox 92 L 06/05/17 05:44 Weight - Most Recent: 157 lb 4 oz I&O - Last 24 Hours: Intake & Output 06/04/17 06/05/17 06/05/17 22:59 06:59 14:59 Intake Total 350 1100 Balance 350 1100 Lab Results Last 24 Hours: Laboratory Results - last 24 hr 06/04/17 06/04/17 06/05/17 Range/Units 17:00 17:00 04:42 WBC 10.52 H (3.98-10.04) K/mm3 RBC 3.67 L (3.98-5.22) M/mm3 Hgb 10.1 L (11.2-15.7) gm/L Hct 30.1 L (34.1-44.9) % MCV 82.0 (79.4-94.8) fl MCH 27.5 (25.6-32.2) pg MCHC 33.6 (32.2-35.5) g/dl RDW Std Deviation 43.3 (36.4-46.3) fL Plt Count 306 (182-369) K/mm3 MPV 9.8 (9.4-12.3) fl Neut % (Auto) 76.2 H (34.0-71.1) % Lymph % (Auto) 11.0 L (19.3-51.7) % [place] % (Auto) 11.9 (4.7-12.5) % Eos % (Auto) 0.6 L (0.7-5.8) Baso % (Auto) 0.2 (0.1-1.2) % Neut # (Auto) 8.02 H (1.56-6.13) K/mm3 Lymph # (Auto) 1.16 L (1.18-3.74) K/mm3 [place] # (Auto) 1.25 H (0.24-0.36) K/mm3 Eos # (Auto) 0.06 (0.04-0.36) K/mm3 Baso # (Auto) 0.02 (0.01-0.08) K/mm3 Sodium (136-145) mEq/L Potassium (3.5-5.1) mEq/L Chloride (98-107) mEq/L Carbon Dioxide (21-32) mEq/L Anion Gap (5-15) BUN (7-18) mg/dL Creatinine (0.55-1.02) mg/dL Est Cr Clr Drug Dosing mL/min Estimated GFR (MDRD) (>60) mL/min BUN/Creatinine Ratio (14-18) Glucose (80-115) mg/dL POC Glucose (80-115) mg/dL Lactic Acid 1.1 (0.4-2.0) mmol/L Calcium (8.5-10.1) mg/dL Magnesium (1.8-2.4) mg/dl C-Reactive Protein 13.0 H* (<1.0) mg/dL 06/05/17 06/05/17 Range/Units 04:42 07:06 WBC (3.98-10.04) K/mm3 RBC (3.98-5.22) M/mm3 Hgb (11.2-15.7) gm/L Hct (34.1-44.9) % MCV (79.4-94.8) fl MCH (25.6-32.2) pg MCHC (32.2-35.5) g/dl RDW Std Deviation (36.4-46.3) fL Plt Count (182-369) K/mm3 MPV (9.4-12.3) fl Neut % (Auto) (34.0-71.1) % Lymph % (Auto) (19.3-51.7) % [place] % (Auto) (4.7-12.5) % Eos % (Auto) (0.7-5.8) Baso % (Auto) (0.1-1.2) % Neut # (Auto) (1.56-6.13) K/mm3 Lymph # (Auto) (1.18-3.74) K/mm3 [place] # (Auto) (0.24-0.36) K/mm3 Eos # (Auto) (0.04-0.36) K/mm3 Baso # (Auto) (0.01-0.08) K/mm3 Sodium 132 L (136-145) mEq/L Potassium 3.2 L (3.5-5.1) mEq/L Chloride 94 L (98-107) mEq/L Carbon Dioxide 28 (21-32) mEq/L Anion Gap 13.2 (5-15) BUN 21 H (7-18) mg/dL Creatinine 1.6 H (0.55-1.02) mg/dL Est Cr Clr Drug Dosing 32.80 mL/min Estimated GFR (MDRD) 33 (>60) mL/min BUN/Creatinine Ratio 13.1 L (14-18) Glucose 115 (80-115) mg/dL POC Glucose 128 H (80-115) mg/dL Lactic Acid (0.4-2.0) mmol/L Calcium 7.8 L (8.5-10.1) mg/dL Magnesium 2.6 H (1.8-2.4) mg/dl C-Reactive Protein 14.3 H* (<1.0) mg/dL Med Orders - Current: Current Medications Acetaminophen (Tylenol) 650 mg PO Q4H PRN PRN Reason: Pain (Mild 1-3)/fever Albuterol/Ipratropium (Duoneb 3.0-0.5 Mg/3 Ml) 3 ml NEB Q4H PRN PRN Reason: Shortness Of Breath/wheezing Amlodipine Besylate (Norvasc) 2.5 mg PO DAILY [facility] Atenolol (Tenormin) 25 mg PO DAILY [facility] Bisacodyl (Dulcolax) 5 mg PO DAILY PRN PRN Reason: Constipation Clozapine (Clozapine) 350 mg PO BEDTIME [facility] Docusate Sodium (Colace) 100 mg PO BID PRN PRN Reason: Constipation Enoxaparin Sodium (Lovenox) 40 mg SUBCUT DAILY [facility] Dextrose/Sodium Chloride (Dextrose 5%-Normal Saline) 1,000 mls @ 100 mls/hr IV ASDIRECTED [facility] Last Admin: 06/05/17 06:41 Dose: 100 mls/hr Fluconazole/Sodium Chloride (200 mg/ Premix) 100 mls @ 100 mls/hr IV ONETIME ONE Stop: 06/05/17 08:10 Latanoprost (Xalatan 0.005% Ophth Soln) 0 ml EYEBOTH BEDTIME [facility] Last Admin: 06/04/17 20:27 Dose: 2 drop Levothyroxine Sodium (Synthroid) 88 mcg PO ACBRK [facility] Last Admin: 06/05/17 06:41 Dose: 88 mcg Lorazepam (Ativan) 0.25 mg IVPUSH Q8H [facility] Magnesium Sulfate (Pharmacy To Dose - Magnesium Replacement) 1 dose .XX ASDIRECTED [facility] Metoclopramide HCl (Reglan) 5 mg IVPUSH Q8H [facility] Last Admin: 06/05/17 03:00 Dose: 5 mg Miscellaneous Information (Remove Patch) 1 ea TRDERM Q72H [facility] Non-Formulary Medication (Clozapine [Clozapine]) 200 mg PO BID [facility] Nystatin (Nystop) 2 gm TOP TID [facility] Stop: 06/18/17 21:01 Last Admin: 06/04/17 21:01 Dose: 1 applic Ondansetron HCl (Zofran Odt) 4 mg PO Q6H PRN PRN Reason: nausea, able to take PO Ondansetron HCl (Zofran) 4 mg IV Q4H PRN PRN Reason: Nausea/Vomiting Pantoprazole Sodium (Protonix Iv) 40 mg IVPUSH Q12H [facility] Last Admin: 06/05/17 06:41 Dose: 40 mg Potassium Chloride (Pharmacy To Dose - Potassium Replacement) 1 dose .XX ASDIRECTED [facility] Scopolamine (Scopolamine) 1 each TRDERM Q72H PRN PRN Reason: Nausea/Vomiting Last Admin: 06/04/17 15:27 Dose: 1 each Senna/Docusate Sodium (Senna Plus) 1 tab PO BID PRN PRN Reason: Constipation Discontinued Medications Clozapine (Clozapine) 350 mg PO ONETIME ONE Stop: 06/04/17 23:31 Last Admin: 06/04/17 23:35 Dose: 350 mg Sodium Chloride (Normal Saline) 1,000 mls @ 999 mls/hr IV ONETIME ONE Stop: 06/04/17 11:29 Last Admin: 06/04/17 10:49 Dose: 999 mls/hr Sodium Chloride (Normal Saline) 1,000 mls @ 999 mls/hr IV ONETIME ONE Stop: 06/04/17 14:22 Last Admin: 06/04/17 13:28 Dose: 999 mls/hr Sodium Chloride (Normal Saline) 1,000 mls @ 75 mls/hr IV ASDIRECTED [facility] Last Admin: 06/04/17 15:45 Dose: 75 mls/hr Premix 1 bag/ Magnesium (Sulfate) 50 mls @ 50 mls/hr IV ONETIME ONE Stop: 06/04/17 17:14 Last Admin: 06/04/17 17:26 Dose: 50 mls/hr Influenza Virus Vaccine (Pharmacy To Dose - Influenza Vaccine) 1 each IM ONETIME ONE Stop: 06/04/17 15:09 Influenza Virus Vaccine (Flulaval Quad [id number]) 60 mcg IM .ONCE ONE Stop: 06/04/17 15:16 Lorazepam (Ativan) 0.5 mg PO TID [facility] Lorazepam (Ativan) 0.5 mg IVPUSH Q8H [facility] Last Admin: 06/05/17 03:00 Dose: 0.5 mg Lorazepam (Ativan) 0.25 mg IVPUSH Q8H [facility] Miscellaneous Information (Remove Patch) 1 ea TRDERM Q72H [facility] Ondansetron HCl (Zofran) 4 mg IVPUSH ONETIME ONE Stop: 06/04/17 10:30 Last Admin: 06/04/17 10:47 Dose: 4 mg Pneumococcal Polyvalent Vaccine (Pneumovax 23) 0.5 ml IM .ONCE ONE Stop: 06/04/17 15:09 - Exam Quality Assessment: DVT Prophylaxis General: Alert, Oriented, Cooperative, No Acute Distress HEENT: Pupils Equal, EOMI, Mucous Membr. Moist/[place], Other (poor dentition) Neck: Supple Lungs: Clear to Auscultation, Normal Respiratory Effort Cardiovascular: Regular Rate, Regular Rhythm GI/Abdominal Exam: Soft, Tender (epigastrium and generalized), Abnormal Bowel Sounds (hypoactive) (Female) Exam: Deferred Extremities: Other (superficial skin abrasion to left elbow- will have nursing cover with bandaid) Peripheral Pulses: 2+: Dorsalis Pedis (L), Dorsalis Pedis (R) Neurological: Strength Equal Bilateral, Other (slow to respond to some questions but does answer appropriately other than she is not sure why she is at "[facility]". ) Psy/Mental Status: Alert - Problem List & Annotations (1) SBO (small bowel obstruction) SNOMED Code(s): 878715121 Code(s): K56.69 - OTHER INTESTINAL OBSTRUCTION * DO NOT USE * Status: Acute Priority: High Current Visit: Yes (2) Nausea and vomiting SNOMED Code(s): 17457927 Code(s): R11.2 - NAUSEA WITH VOMITING, UNSPECIFIED Status: Acute Priority : High Current Visit: Yes Qualifiers: Vomiting type: unspecified (3) Fall SNOMED Code(s): 5313569 Code(s): W19.XXXA - UNSPECIFIED FALL, INITIAL ENCOUNTER Status: Acute Priority: High Current Visit: Yes Qualifiers: Encounter type: initial encounter Qualified Code(s): W19.XXXA - Unspecified fall, initial encounter (4) Acute kidney injury SNOMED Code(s): 67042275 Code(s): N17.9 - ACUTE KIDNEY FAILURE, UNSPECIFIED Status: Acute Priority : High Current Visit: Yes (5) Hypokalemia SNOMED Code(s): 23315828 Code(s): E87.6 - HYPOKALEMIA Status: Acute Priority: High Current Visit : No (6) Dehydration SNOMED Code(s): 39183872 Code(s): E86.0 - DEHYDRATION Status: Resolved Priority: High Current Visit: Yes (7) Candidal dermatitis SNOMED Code(s): 34938970 Code(s): B37.2 - CANDIDIASIS OF SKIN AND NAIL Status: Acute Priority: High Current Visit: Yes (8) Leukocytosis SNOMED Code(s): 137989974 Code(s): D72.829 - ELEVATED WHITE BLOOD CELL COUNT, UNSPECIFIED Status: Acute Priority: Medium Current Visit: Yes Qualifiers: Leukocytosis type: unspecified Qualified Code(s): D72.829 - Elevated white blood cell count, unspecified (9) Schizophrenia SNOMED Code(s): 81362649 Code(s): F20.9 - SCHIZOPHRENIA, UNSPECIFIED Status: Chronic Priority: Medium Current Visit: Yes Qualifiers: Schizophrenia type: paranoid schizophrenia Qualified Code(s): F20.0 - Paranoid schizophrenia - Problem List Review Problem List Initiated/Reviewed/Updated: Yes - My Orders Last 24 Hours: My Active Orders 06/05/17 06:42 Accu Check [Blood Glucose Check, Bedside] [RC] QIDACANDBED Head wo Cont [CT] Stat 06/05/17 06:45 IS (RT) [RT Incentive Spirometry] [RC] Q2HWA 06/05/17 07:08 TSH [CHEM] Routine 06/05/17 07:11 Fluconazole/Normal Saline [Diflucan in NS 200 MG/100 ML] 200 mg Premix Bag 1 bag IV ONETIME 06/05/17 11:00 LORazepam [Ativan] 0.25 mg IVPUSH Q8H 06/06/17 07:00 Abdomen 2V AP Flat Upright [CR] Routine - Plan Plan:: I/P: Acute: SBO -Generalized abdominal pain; N&V 24 hrs [employer], afebrile, leukocytosis, no questionable food recently, no recent travel -Zofran given in ED, will add scopolamine patch -Abdominal x-rays obtain after admission and arrival to floor (1/16/17) - Probably dilated small bowel loops compatible with mid to distal small bowel obstruction. Haziness within the pelvis as described. -Hx/o SOB due to adhesions - hospitalized last January -CRP 13.0-->14.3 -PRN antiemetics -NPO - advance diet as tolerated -D5NS for fluids -Reglan IV Q8H -NG tube--1700 out since insertion last evening -Ambulate QID -IS Q2H WA -Consider CT scan if needed, repeat abd films 48 hrs after admission to follow -Consider general surgery consult if needed - will treat conservatively for now Fall in bathroom this morning, striking head and left elbow -Head CT -- negative for acute findings -Wound care/bandaid to elbow -Decrease ativan dose from 0.5 to 0.25mg IV Q8H -PT/OT -Fall precautions/up with assist at all times Candidal dermatitis vs hidradenitis suppurativa vs. bacterial infection -Lesions noted scattered over body but especially in groin and under breasts -Patient avoids bathing/showers -WBC 12.87; CRP 13.0 -Pt. reports she is seeing dermatology for this and "has a cream" - no cream noted on home med list -Caregiver to call and update what cream pt. takes - she has not been utilizing it -Nystatin powder -Diflucan IV today x 1 dose -Florastor -Culture wound Dehydration--improved to resolved -Poor oral intake - caregiver reports diet is mostly Diet Coke -Hct 33, creatinine 2.2, orthostatic hypotension in ED, dry mucous membranes , dianelys urine -1L fluid bolus in ED -Fluids as ordered -Chemical Laboratory Tester consult Hyponatremia--resolved -Sodium 126 in ED -1L fluid bolus given -IV fluids as ordered -Consider thermotabs -Monitor Chronic: HLD HTN - stable, home and PRN BP meds as needed GERD - Protonix IV Seizures- home meds Anxiety - ativan IVP for now, once able to take PO back to home dose Schizophrenia - home meds Hypothyroidism - Check TSH--normal at 1.295 Anemia - stable Plan Admit to medical floor PT/OT CM/SW for discharge planning---LOS likely 2-3 more days pending progress/ resolution of SBO PT/OT Routine AM labs Home medications Other orders as indicated above. She has a new jeeper operator who was approved by the court earlier this year and is listed in her chart. The jeeper operator reports she is just trying now to get things in order and improve follow-up, etc. Code status: Full code. PCP: Dr. Bryson at [facility]. Psychiatrist: Dr. Greenberg. [facility] also assists her.
[2017-06-05] MEDS ORDERED: Fluconazole/Normal Saline 200 MG in Premix Bag 1 BAG IV ONE ×3 (08:00→16:00)
[2017-06-05] MEDS ORDERED: Potassium Chloride 20 MEQ Tab.ER PO ONE (08:00)
--- NOTE | 2017-06-05 08:12 | CT ---
Head CT Technique: Multiple axial sections through the brain were obtained. Intravenous contrast was not utilized. Comparison: No previous intracranial imaging. Findings: Ventricles along with basal cisterns and sulci over the convexities are within normal limits for the patient's age. No abnormal parenchymal densities are seen. No evidence of intracranial hemorrhage. No midline shift or mass effect is seen. Bone window settings were reviewed which shows no acute calvarial abnormality. Visualized sinuses are clear. Impression: 1. Nothing acute is identified on noncontrast head CT study. Diagnostic code #1
[2017-06-05] MEDS: Potassium Chloride 10 MEQ in Premix Bag 1 BAG IV SCH ×5 (09:34→15:05)
[2017-06-05] MEDS: Enoxaparin 40 MG/0.4 ML Syringe SUBCUT SCH (09:38)
[2017-06-05] MEDS: Saccharomyces Boulardii (Probiotic) 250 MG Cap PO SCH ×2 (09:39→20:24)
[2017-06-05] MEDS: Nystatin Topical Powder 15 GM Bottle TOP SCH ×3 (09:41→20:35)
[2017-06-05] MEDS: amLODIPine 2.5 MG Tab PO SCH (11:16)
[2017-06-05] MEDS: Atenolol 25 MG Tab PO SCH (11:16)
[2017-06-05] MEDS: cloZAPine 100 MG Tab PO SCH ×4 (11:21→20:24)
[2017-06-05] MEDS: Latanoprost 0.005% Ophth Soln 2.5 ML Bottle EYEBOTH SCH (20:38)
[2017-06-06] MEDS: Metoclopramide 10 MG/2 ML SDV IVPUSH SCH ×3 (02:50→19:30)
[2017-06-06] MEDS: LORazepam 2 MG/ML SDV IVPUSH SCH ×2 (02:51→19:25)
[2017-06-06] MEDS: Pantoprazole 40 MG Vial IVPUSH SCH ×2 (06:34→19:54)
[2017-06-06] MEDS: Dextrose 5%-0.9% NaCl 1,000 ML IV SCH ×2 (06:34→16:46)
[2017-06-06] MEDS: Levothyroxine 88 MCG Tab PO SCH (06:34)
[2017-06-06] MEDS: cloZAPine 100 MG Tab PO SCH ×3 (06:35→21:31)
[2017-06-06] MEDS: amLODIPine 2.5 MG Tab PO SCH (09:26)
[2017-06-06] MEDS: Atenolol 25 MG Tab PO SCH (09:31)
[2017-06-06] MEDS: Enoxaparin 40 MG/0.4 ML Syringe SUBCUT SCH (09:32)
[2017-06-06] MEDS: Saccharomyces Boulardii (Probiotic) 250 MG Cap PO SCH ×2 (09:32→21:34)
[2017-06-06] MEDS: Nystatin Topical Powder 15 GM Bottle TOP SCH ×3 (09:33→21:34)
[2017-06-06] MEDS ORDERED: LORazepam 2 MG/ML SDV IVPUSH PRN (09:43)
--- NOTE | 2017-06-06 09:55 | PCM.PN ---
- General Info Date of Service: 06/06/17 Admission Dx/Problem (Free Text): Admission Diagnosis/Problem Admission Diagnosis/Problem Orthostatic hypotension Beckie is seen this morning ambulating in the hallways with PT, going well. Reports she thinks she is passing gas but not sure, still has abd pain "the same as it was" and "all over" but looks comfortable when up and walking, she is smiling and talkative. NG is present still draining dark brown substance. States she slept "OK". Denies symptoms of CP, SOB, dizziness or palpitations. No positional dizziness. Hgb dropped from 10.1 to 8.8 today. Functional Status: Reports: Pain Controlled, Ambulating, Urinating, Incentive Spirometry. Denies: Tolerating Diet (NPO with NG tube in place), New Symptoms - Review of Systems General: Denies: Fever HEENT: Reports: No Symptoms Pulmonary: Reports: No Symptoms. Denies: Shortness of Breath, Cough Cardiovascular: Reports: No Symptoms. Denies: Chest Pain, Palpitations, Lightheadedness Gastrointestinal: Reports: Abdominal Pain. Denies: Diarrhea, Nausea, Vomiting Genitourinary: Reports: No Symptoms Neurological: Reports: No Symptoms Psychiatric: Reports: No Symptoms - Patient Data Vitals - Most Recent: Last Vital Signs Temp 98.1 F 06/06/17 08:17 Pulse 87 06/06/17 09:31 Resp 20 06/06/17 08:17 BP 107/58 L 06/06/17 09:31 Pulse Ox 97 06/06/17 08:17 Weight - Most Recent: 160 lb 7 oz I&O - Last 24 Hours: Intake & Output 06/05/17 06/06/17 06/06/17 22:59 06:59 14:59 Intake Total 1616 1215 Output Total 550 500 Balance 1066 715 Lab Results Last 24 Hours: Laboratory Results - last 24 hr 06/05/17 06/05/17 06/06/17 Range/Units 11:09 17:40 00:58 WBC (3.98-10.04) K/mm3 RBC (3.98-5.22) M/mm3 Hgb (11.2-15.7) gm/L Hct (34.1-44.9) % MCV (79.4-94.8) fl MCH (25.6-32.2) pg MCHC (32.2-35.5) g/dl RDW Std Deviation (36.4-46.3) fL Plt Count (182-369) K/mm3 MPV (9.4-12.3) fl Neut % (Auto) (34.0-71.1) % Lymph % (Auto) (19.3-51.7) % [place] % (Auto) (4.7-12.5) % Eos % (Auto) (0.7-5.8) Baso % (Auto) (0.1-1.2) % Neut # (Auto) (1.56-6.13) K/mm3 Lymph # (Auto) (1.18-3.74) K/mm3 [place] # (Auto) (0.24-0.36) K/mm3 Eos # (Auto) (0.04-0.36) K/mm3 Baso # (Auto) (0.01-0.08) K/mm3 Sodium (136-145) mEq/L Potassium (3.5-5.1) mEq/L Chloride (98-107) mEq/L Carbon Dioxide (21-32) mEq/L Anion Gap (5-15) BUN (7-18) mg/dL Creatinine (0.55-1.02) mg/dL Est Cr Clr Drug Dosing mL/min Estimated GFR (MDRD) (>60) mL/min BUN/Creatinine Ratio (14-18) Glucose (80-115) mg/dL POC Glucose 125 H 116 H 113 (80-115) mg/dL Calcium (8.5-10.1) mg/dL Magnesium (1.8-2.4) mg/dl C-Reactive Protein (<1.0) mg/dL 06/06/17 06/06/17 06/06/17 Range/Units 06:35 06:35 06:47 WBC 9.23 (3.98-10.04) K/mm3 RBC 3.22 L (3.98-5.22) M/mm3 Hgb 8.8 L (11.2-15.7) gm/L Hct 27.0 L (34.1-44.9) % MCV 83.9 (79.4-94.8) fl MCH 27.3 (25.6-32.2) pg MCHC 32.6 (32.2-35.5) g/dl RDW Std Deviation 43.6 (36.4-46.3) fL Plt Count 327 (182-369) K/mm3 MPV 9.0 L (9.4-12.3) fl Neut % (Auto) 72.2 H (34.0-71.1) % Lymph % (Auto) 13.3 L (19.3-51.7) % [place] % (Auto) 12.5 (4.7-12.5) % Eos % (Auto) 1.6 (0.7-5.8) Baso % (Auto) 0.2 (0.1-1.2) % Neut # (Auto) 6.66 H (1.56-6.13) K/mm3 Lymph # (Auto) 1.23 (1.18-3.74) K/mm3 [place] # (Auto) 1.15 H (0.24-0.36) K/mm3 Eos # (Auto) 0.15 (0.04-0.36) K/mm3 Baso # (Auto) 0.02 (0.01-0.08) K/mm3 Sodium 133 L (136-145) mEq/L Potassium 3.1 L (3.5-5.1) mEq/L Chloride 100 (98-107) mEq/L Carbon Dioxide 25 (21-32) mEq/L Anion Gap 11.1 (5-15) BUN 12 (7-18) mg/dL Creatinine 0.9 (0.55-1.02) mg/dL Est Cr Clr Drug Dosing 58.32 mL/min Estimated GFR (MDRD) > 60 (>60) mL/min BUN/Creatinine Ratio 13.3 L (14-18) Glucose 119 H (80-115) mg/dL POC Glucose 133 H (80-115) mg/dL Calcium 7.9 L (8.5-10.1) mg/dL Magnesium 2.2 (1.8-2.4) mg/dl C-Reactive Protein 9.2 H* (<1.0) mg/dL Med Orders - Current: Current Medications Acetaminophen (Tylenol) 650 mg PO Q4H PRN PRN Reason: Pain (Mild 1-3)/fever Albuterol/Ipratropium (Duoneb 3.0-0.5 Mg/3 Ml) 3 ml NEB Q4H PRN PRN Reason: Shortness Of Breath/wheezing Amlodipine Besylate (Norvasc) 2.5 mg PO DAILY [facility] Last Admin: 06/06/17 09:26 Dose: 2.5 mg Atenolol (Tenormin) 25 mg PO DAILY [facility] Last Admin: 06/06/17 09:31 Dose: 25 mg Bisacodyl (Dulcolax) 5 mg PO DAILY PRN PRN Reason: Constipation Last Admin: 06/06/17 06:35 Dose: 5 mg Clozapine (Clozapine) 350 mg PO BEDTIME [facility] Last Admin: 06/05/17 20:24 Dose: 350 mg Clozapine (Clozapine) 200 mg PO 0700,1700 [facility] Last Admin: 06/06/17 06:35 Dose: 200 mg Docusate Sodium (Colace) 100 mg PO BID PRN PRN Reason: Constipation Enoxaparin Sodium (Lovenox) 40 mg SUBCUT DAILY [facility] Last Admin: 06/06/17 09:32 Dose: 40 mg Dextrose/Sodium Chloride (Dextrose 5%-Normal Saline) 1,000 mls @ 100 mls/hr IV ASDIRECTED [facility] Last Admin: 06/06/17 06:34 Dose: 100 mls/hr Potassium Chloride 10 meq/ (Premix) 100 mls @ 100 mls/hr IV Q1H [facility] Stop: 06/06/17 14:14 Latanoprost (Xalatan 0.005% Ophth Soln) 0 ml EYEBOTH BEDTIME [facility] Last Admin: 06/05/17 20:38 Dose: 1 drop Levothyroxine Sodium (Synthroid) 88 mcg PO ACBRK [facility] Last Admin: 06/06/17 06:34 Dose: 88 mcg Lorazepam (Ativan) 0.25 mg IVPUSH Q6H PRN PRN Reason: restlessness Magnesium Sulfate (Pharmacy To Dose - Magnesium Replacement) 1 dose .XX ASDIRECTED [facility] Metoclopramide HCl (Reglan) 5 mg IVPUSH Q8H [facility] Last Admin: 06/06/17 02:50 Dose: 5 mg Miscellaneous Information (Remove Patch) 1 ea TRDERM Q72H [facility] Nystatin (Nystop) 2 gm TOP TID [facility] Stop: 06/18/17 21:01 Last Admin: 06/06/17 09:33 Dose: 1 applic Ondansetron HCl (Zofran Odt) 4 mg PO Q6H PRN PRN Reason: nausea, able to take PO Ondansetron HCl (Zofran) 4 mg IV Q4H PRN PRN Reason: Nausea/Vomiting Pantoprazole Sodium (Protonix Iv) 40 mg IVPUSH Q12H [facility] Last Admin: 06/06/17 06:34 Dose: 40 mg Potassium Chloride (Pharmacy To Dose - Potassium Replacement) 1 dose .XX ASDIRECTED [facility] Saccharomyces Boulardii (Florastor) 250 mg PO BID [facility] Last Admin: 06/06/17 09:32 Dose: 250 mg Scopolamine (Scopolamine) 1 each TRDERM Q72H PRN PRN Reason: Nausea/Vomiting Last Admin: 06/04/17 15:27 Dose: 1 each Senna/Docusate Sodium (Senna Plus) 1 tab PO BID PRN PRN Reason: Constipation Last Admin: 06/06/17 06:35 Dose: 1 tab Discontinued Medications Clozapine (Clozapine) 350 mg PO BEDTIME [facility] Last Admin: 06/05/17 16:08 Dose: Not Given Clozapine (Clozapine) 200 mg PO 0700,1700 [facility] Last Admin: 06/05/17 16:07 Dose: Not Given Clozapine (Clozapine) 350 mg PO ONETIME ONE Stop: 06/04/17 23:31 Last Admin: 06/04/17 23:35 Dose: 350 mg Sodium Chloride (Normal Saline) 1,000 mls @ 999 mls/hr IV ONETIME ONE Stop: 06/04/17 11:29 Last Admin: 06/04/17 10:49 Dose: 999 mls/hr Sodium Chloride (Normal Saline) 1,000 mls @ 999 mls/hr IV ONETIME ONE Stop: 06/04/17 14:22 Last Admin: 06/04/17 13:28 Dose: 999 mls/hr Sodium Chloride (Normal Saline) 1,000 mls @ 75 mls/hr IV ASDIRECTED [facility] Last Admin: 06/04/17 15:45 Dose: 75 mls/hr Premix 1 bag/ Magnesium (Sulfate) 50 mls @ 50 mls/hr IV ONETIME ONE Stop: 06/04/17 17:14 Last Admin: 06/04/17 17:26 Dose: 50 mls/hr Fluconazole/Sodium Chloride (200 mg/ Premix) 100 mls @ 100 mls/hr IV ONETIME ONE Stop: 06/05/17 08:59 Last Admin: 06/05/17 09:27 Dose: Not Given Potassium Chloride 10 meq/ (Premix) 100 mls @ 100 mls/hr IV Q1H [facility] Stop: 06/05/17 11:44 Last Admin: 06/05/17 14:10 Dose: Not Given Potassium Chloride 10 meq/ (Premix) 100 mls @ 100 mls/hr IV Q1H [facility] Stop: 06/05/17 13:14 Last Admin: 06/05/17 15:05 Dose: 100 mls/hr Fluconazole/Sodium Chloride (200 mg/ Premix) 100 mls @ 100 mls/hr IV ONETIME ONE Stop: 06/05/17 14:59 Last Admin: 06/05/17 16:08 Dose: Not Given Fluconazole/Sodium Chloride (200 mg/ Premix) 100 mls @ 100 mls/hr IV ONETIME ONE Stop: 06/05/17 16:59 Last Admin: 06/05/17 16:40 Dose: 100 mls/hr Influenza Virus Vaccine (Pharmacy To Dose - Influenza Vaccine) 1 each IM ONETIME ONE Stop: 06/04/17 15:09 Influenza Virus Vaccine (Flulaval Quad 9943-0801) 60 mcg IM .ONCE ONE Stop: 06/04/17 15:16 Lorazepam (Ativan) 0.5 mg PO TID [facility] Lorazepam (Ativan) 0.5 mg IVPUSH Q8H [facility] Last Admin: 06/05/17 03:00 Dose: 0.5 mg Lorazepam (Ativan) 0.25 mg IVPUSH Q8H NAEL Lorazepam (Ativan) 0.25 mg IVPUSH Q8H [facility] Last Admin: 06/06/17 02:51 Dose: Not Given Miscellaneous Information (Remove Patch) 1 ea TRDERM Q72H [facility] Ondansetron HCl (Zofran) 4 mg IVPUSH ONETIME ONE Stop: 06/04/17 10:30 Last Admin: 06/04/17 10:47 Dose: 4 mg Pneumococcal Polyvalent Vaccine (Pneumovax 23) 0.5 ml IM .ONCE ONE Stop: 06/04/17 15:09 Potassium Chloride (Klor-Con M20) 40 meq PO ONETIME ONE Stop: 06/05/17 08:01 - Exam Quality Assessment: DVT Prophylaxis General: Alert, Oriented, Cooperative, No Acute Distress HEENT: Pupils Equal, EOMI, Mucous Membr. Moist/[place] Neck: Supple Lungs: Clear to Auscultation, Normal Respiratory Effort, Decreased Breath Sounds (bases) Cardiovascular: Regular Rate, Regular Rhythm GI/Abdominal Exam: Tender (diffuse but unchanged with light vs deep palpation), Abnormal Bowel Sounds (very hypoactive). No: Guarding, Rigid, Rebound (Female) Exam: Deferred Back Exam: Normal Inspection Extremities: Normal Inspection, No Pedal Edema Peripheral Pulses: 2+: Dorsalis Pedis (L), Dorsalis Pedis (R) Skin: Rash (intertrigionous folds) Neurological: No New Focal Deficit, Other (baseline pleasant mental status. ) Psy/Mental Status: Alert, Normal Affect, Normal Mood - Problem List & Annotations (1) SBO (small bowel obstruction) SNOMED Code(s): 342719095 Code(s): K56.69 - OTHER INTESTINAL OBSTRUCTION * DO NOT USE * Status: Acute Priority: High Current Visit: Yes (2) Nausea and vomiting SNOMED Code(s): 19511876 Code(s): R11.2 - NAUSEA WITH VOMITING, UNSPECIFIED Status: Resolved Priority: High Current Visit: Yes Qualifiers: Vomiting type: unspecified (3) Fall SNOMED Code(s): 2044615 Code(s): W19.XXXA - UNSPECIFIED FALL, INITIAL ENCOUNTER Status: Acute Priority: High Current Visit: Yes Qualifiers: Encounter type: initial encounter Qualified Code(s): W19.XXXA - Unspecified fall, initial encounter (4) Acute kidney injury SNOMED Code(s): 02288373 Code(s): N17.9 - ACUTE KIDNEY FAILURE, UNSPECIFIED Status: Acute Priority : High Current Visit: Yes (5) Hypokalemia SNOMED Code(s): 64777263 Code(s): E87.6 - HYPOKALEMIA Status: Acute Priority: High Current Visit : No (6) Dehydration SNOMED Code(s): 52370249 Code(s): E86.0 - DEHYDRATION Status: Resolved Priority: High Current Visit: Yes (7) Candidal dermatitis SNOMED Code(s): 63401641 Code(s): B37.2 - CANDIDIASIS OF SKIN AND NAIL Status: Acute Priority: High Current Visit: Yes (8) Leukocytosis SNOMED Code(s): 317296792 Code(s): D72.829 - ELEVATED WHITE BLOOD CELL COUNT, UNSPECIFIED Status: Acute Priority: Medium Current Visit: Yes Qualifiers: Leukocytosis type: unspecified Qualified Code(s): D72.829 - Elevated white blood cell count, unspecified (9) Schizophrenia SNOMED Code(s): 74408290 Code(s): F20.9 - SCHIZOPHRENIA, UNSPECIFIED Status: Chronic Priority: Medium Current Visit: Yes Qualifiers: Schizophrenia type: paranoid schizophrenia Qualified Code(s): F20.0 - Paranoid schizophrenia - Problem List Review Problem List Initiated/Reviewed/Updated: Yes - My Orders Last 24 Hours: My Active Orders 06/05/17 09:00 Saccharomyces Boulardii [Florastor] 250 mg PO BID 06/06/17 07:00 Abdomen 2V AP Flat Upright [CR] Routine 06/06/17 09:43 LORazepam [Ativan] 0.25 mg IVPUSH Q6H PRN 06/06/17 09:44 FE, TIBC, TRANSFERRIN, FE SAT [CHEM] Routine FOLIC ACID [CHEM] Routine Occult Blood Diagnostic GI [OCCULT BLOOD DIAGNOSTIC] [OP] Routine VITAMIN B12 [CHEM] Routine - Plan Plan:: I/P: Acute: SBO -Generalized abdominal pain; 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 Haziness within the pelvis as described. -Repeat 2 view abdomen today: no radiologist report back yet--wet read, with some improvement noted with some decompression air fluid levels but still present. Await report. -Hx/o SOB due to adhesions - hospitalized last January -CRP 13.0-->14.3 -PRN antiemetics -NPO - NG tube in place -D5NS for fluids -Reglan IV Q8H -Ambulate QID; is compliant with ambulation thus far -IS Q2H WA -Consider CT scan if needed, repeat abd films 48 hrs after admission to follow- as noted above -Consider general surgery consult if needed - will treat conservatively for now Hypokalemia -Replete and monitor daily labs Anemia -Hgb 10.1 on admit-->8.8 -Likely some dilutional -Eval with iron studies, B12, folic acic and occult stool when able to collect -Cont to follow am labs -Asymptomatic thus far -Consider surgery consult if symptomatic and/or if worsening Candidal dermatitis vs hidradenitis suppurativa vs. bacterial infection -Lesions noted scattered over body but especially in groin and under breasts -Patient avoids bathing/showers -WBC 12.87; CRP 13.0 -Pt. reports she is seeing dermatology for this and "has a cream" - no cream noted on home med list -Caregiver to call and update what cream pt. takes - she has not been utilizing it -Nystatin powder -Diflucan IV today x 1 dose -Florastor -Culture wound - awaiting results. 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 Specialist consult Hyponatremia--resolved -Sodium 126 in ED -1L fluid bolus given -IV fluids as ordered -Consider thermotabs -Monitor Fall in bathroom 06/05/17 morning, striking head and left elbow----no further dizziness or concerning symptoms -Head CT -- negative for acute findings -Wound care/bandaid to elbow -Decrease ativan dose from 0.5 to 0.25mg IV Q8H -PT/OT -Fall precautions/up with assist at all times Chronic: HLD HTN - stable, home and PRN BP meds as needed GERD - Protonix IV Seizures- home meds Anxiety - ativan IVP for now, once able to take PO back to home dose Schizophrenia - home meds Hypothyroidism - Check TSH--normal at 1.295 Anemia - as above Plan Admit to medical floor PT/OT CM/SW for discharge planning---LOS likely 2-3 more days pending progress/ resolution of SBO PT/OT Routine AM labs Home medications Other orders as indicated above. 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 The general farmworker reports she is just trying now to get things in order and improve follow-up, etc. Code status: Full code. PCP: Dr. Bryson at [facility]. Psychiatrist: Dr. Greenberg. [facility] also assists her.
--- NOTE | 2017-06-06 10:08 | CR ---
Abdomen: Supine and upright views of the abdomen were obtained. Comparison: Prior abdominal x-ray of 06/04/17. Continuing gas dilated small bowel is seen. Air-fluid levels are identified. Findings are minimally improved from previous study. Tip of nasogastric tube lies within the stomach. Proximal side-port of the nasogastric tube lies at the gastroesophageal junction. No free air is seen. Impression: 1. Continuing dilated small bowel loops which are minimally improved from prior exam. 2. Position of nasogastric tube as noted above. Diagnostic code #3
[2017-06-06] MEDS: Potassium Chloride 10 MEQ in Premix Bag 1 BAG IV SCH ×7 (10:23→19:52)
--- NOTE | 2017-06-06 11:24 | PCM.CONSN ---
- General Info Date of Service: 06/06/17 - Patient Data Vitals - Most Recent: Last Vital Signs Temp 98.1 F 06/06/17 08:17 Pulse 87 06/06/17 09:31 Resp 20 06/06/17 08:17 BP 107/58 L 06/06/17 09:31 Pulse Ox 97 06/06/17 08:17 Weight - Most Recent: 72.773 kg I&O - Last 24 Hours: Intake & Output 06/05/17 06/06/17 06/06/17 23:59 07:59 15:59 Intake Total 1616 1215 Output Total 550 500 Balance 1066 715 Lab Results Last 24 Hours: Laboratory Results - last 24 hr 06/05/17 06/05/17 06/06/17 Range/Units 11:09 17:40 00:58 WBC (3.98-10.04) K/mm3 RBC (3.98-5.22) M/mm3 Hgb (11.2-15.7) gm/L Hct (34.1-44.9) % MCV (79.4-94.8) fl MCH (25.6-32.2) pg MCHC (32.2-35.5) g/dl RDW Std Deviation (36.4-46.3) fL Plt Count (182-369) K/mm3 MPV (9.4-12.3) fl Neut % (Auto) (34.0-71.1) % Lymph % (Auto) (19.3-51.7) % [place] % (Auto) (4.7-12.5) % Eos % (Auto) (0.7-5.8) Baso % (Auto) (0.1-1.2) % Neut # (Auto) (1.56-6.13) K/mm3 Lymph # (Auto) (1.18-3.74) K/mm3 [place] # (Auto) (0.24-0.36) K/mm3 Eos # (Auto) (0.04-0.36) K/mm3 Baso # (Auto) (0.01-0.08) K/mm3 Sodium (136-145) mEq/L Potassium (3.5-5.1) mEq/L Chloride (98-107) mEq/L Carbon Dioxide (21-32) mEq/L Anion Gap (5-15) BUN (7-18) mg/dL Creatinine (0.55-1.02) mg/dL Est Cr Clr Drug Dosing mL/min Estimated GFR (MDRD) (>60) mL/min BUN/Creatinine Ratio (14-18) Glucose (80-115) mg/dL POC Glucose 125 H 116 H 113 (80-115) mg/dL Calcium (8.5-10.1) mg/dL Magnesium (1.8-2.4) mg/dl C-Reactive Protein (<1.0) mg/dL 06/06/17 06/06/17 06/06/17 Range/Units 06:35 06:35 06:47 WBC 9.23 (3.98-10.04) K/mm3 RBC 3.22 L (3.98-5.22) M/mm3 Hgb 8.8 L (11.2-15.7) gm/L Hct 27.0 L (34.1-44.9) % MCV 83.9 (79.4-94.8) fl MCH 27.3 (25.6-32.2) pg MCHC 32.6 (32.2-35.5) g/dl RDW Std Deviation 43.6 (36.4-46.3) fL Plt Count 327 (182-369) K/mm3 MPV 9.0 L (9.4-12.3) fl Neut % (Auto) 72.2 H (34.0-71.1) % Lymph % (Auto) 13.3 L (19.3-51.7) % [place] % (Auto) 12.5 (4.7-12.5) % Eos % (Auto) 1.6 (0.7-5.8) Baso % (Auto) 0.2 (0.1-1.2) % Neut # (Auto) 6.66 H (1.56-6.13) K/mm3 Lymph # (Auto) 1.23 (1.18-3.74) K/mm3 [place] # (Auto) 1.15 H (0.24-0.36) K/mm3 Eos # (Auto) 0.15 (0.04-0.36) K/mm3 Baso # (Auto) 0.02 (0.01-0.08) K/mm3 Sodium 133 L (136-145) mEq/L Potassium 3.1 L (3.5-5.1) mEq/L Chloride 100 (98-107) mEq/L Carbon Dioxide 25 (21-32) mEq/L Anion Gap 11.1 (5-15) BUN 12 (7-18) mg/dL Creatinine 0.9 (0.55-1.02) mg/dL Est Cr Clr Drug Dosing 58.32 mL/min Estimated GFR (MDRD) > 60 (>60) mL/min BUN/Creatinine Ratio 13.3 L (14-18) Glucose 119 H (80-115) mg/dL POC Glucose 133 H (80-115) mg/dL Calcium 7.9 L (8.5-10.1) mg/dL Magnesium 2.2 (1.8-2.4) mg/dl C-Reactive Protein 9.2 H* (<1.0) mg/dL Med Orders - Current: Current Medications Acetaminophen (Tylenol) 650 mg PO Q4H PRN PRN Reason: Pain (Mild 1-3)/fever Albuterol/Ipratropium (Duoneb 3.0-0.5 Mg/3 Ml) 3 ml NEB Q4H PRN PRN Reason: Shortness Of Breath/wheezing Amlodipine Besylate (Norvasc) 2.5 mg PO DAILY [facility] Last Admin: 06/06/17 09:26 Dose: 2.5 mg Atenolol (Tenormin) 25 mg PO DAILY [facility] Last Admin: 06/06/17 09:31 Dose: 25 mg Bisacodyl (Dulcolax) 5 mg PO DAILY PRN PRN Reason: Constipation Last Admin: 06/06/17 06:35 Dose: 5 mg Clozapine (Clozapine) 350 mg PO BEDTIME [facility] Last Admin: 06/05/17 20:24 Dose: 350 mg Clozapine (Clozapine) 200 mg PO 0700,1700 [facility] Last Admin: 06/06/17 06:35 Dose: 200 mg Docusate Sodium (Colace) 100 mg PO BID PRN PRN Reason: Constipation Enoxaparin Sodium (Lovenox) 40 mg SUBCUT DAILY [facility] Last Admin: 06/06/17 09:32 Dose: 40 mg Dextrose/Sodium Chloride (Dextrose 5%-Normal Saline) 1,000 mls @ 100 mls/hr IV ASDIRECTED [facility] Last Admin: 06/06/17 06:34 Dose: 100 mls/hr Potassium Chloride 10 meq/ (Premix) 100 mls @ 100 mls/hr IV Q1H [facility] Stop: 06/06/17 15:59 Last Admin: 06/06/17 10:23 Dose: 100 mls/hr Latanoprost (Xalatan 0.005% Ophth Soln) 0 ml EYEBOTH BEDTIME [facility] Last Admin: 06/05/17 20:38 Dose: 1 drop Levothyroxine Sodium (Synthroid) 88 mcg PO ACBRK [facility] Last Admin: 06/06/17 06:34 Dose: 88 mcg Lorazepam (Ativan) 0.25 mg IVPUSH Q6H PRN PRN Reason: restlessness Last Admin: 06/06/17 10:15 Dose: 0.25 mg Magnesium Sulfate (Pharmacy To Dose - Magnesium Replacement) 1 dose .XX ASDIRECTED [facility] Metoclopramide HCl (Reglan) 5 mg IVPUSH Q8H [facility] Last Admin: 06/06/17 10:11 Dose: 5 mg Miscellaneous Information (Remove Patch) 1 ea TRDERM Q72H [facility] Nystatin (Nystop) 2 gm TOP TID [facility] Stop: 06/18/17 21:01 Last Admin: 06/06/17 09:33 Dose: 1 applic Ondansetron HCl (Zofran Odt) 4 mg PO Q6H PRN PRN Reason: nausea, able to take PO Ondansetron HCl (Zofran) 4 mg IV Q4H PRN PRN Reason: Nausea/Vomiting Pantoprazole Sodium (Protonix Iv) 40 mg IVPUSH Q12H [facility] Last Admin: 06/06/17 06:34 Dose: 40 mg Potassium Chloride (Pharmacy To Dose - Potassium Replacement) 1 dose .XX ASDIRECTED [facility] Saccharomyces Boulardii (Florastor) 250 mg PO BID [facility] Last Admin: 06/06/17 09:32 Dose: 250 mg Scopolamine (Scopolamine) 1 each TRDERM Q72H PRN PRN Reason: Nausea/Vomiting Last Admin: 06/04/17 15:27 Dose: 1 each Senna/Docusate Sodium (Senna Plus) 1 tab PO BID PRN PRN Reason: Constipation Last Admin: 06/06/17 06:35 Dose: 1 tab Discontinued Medications Clozapine (Clozapine) 350 mg PO BEDTIME [facility] Last Admin: 06/05/17 16:08 Dose: Not Given Clozapine (Clozapine) 200 mg PO 0700,1700 [facility] Last Admin: 06/05/17 16:07 Dose: Not Given Clozapine (Clozapine) 350 mg PO ONETIME ONE Stop: 06/04/17 23:31 Last Admin: 06/04/17 23:35 Dose: 350 mg Sodium Chloride (Normal Saline) 1,000 mls @ 999 mls/hr IV ONETIME ONE Stop: 06/04/17 11:29 Last Admin: 06/04/17 10:49 Dose: 999 mls/hr Sodium Chloride (Normal Saline) 1,000 mls @ 999 mls/hr IV ONETIME ONE Stop: 06/04/17 14:22 Last Admin: 06/04/17 13:28 Dose: 999 mls/hr Sodium Chloride (Normal Saline) 1,000 mls @ 75 mls/hr IV ASDIRECTED [facility] Last Admin: 06/04/17 15:45 Dose: 75 mls/hr Premix 1 bag/ Magnesium (Sulfate) 50 mls @ 50 mls/hr IV ONETIME ONE Stop: 06/04/17 17:14 Last Admin: 06/04/17 17:26 Dose: 50 mls/hr Fluconazole/Sodium Chloride (200 mg/ Premix) 100 mls @ 100 mls/hr IV ONETIME ONE Stop: 06/05/17 08:59 Last Admin: 06/05/17 09:27 Dose: Not Given Potassium Chloride 10 meq/ (Premix) 100 mls @ 100 mls/hr IV Q1H [facility] Stop: 06/05/17 11:44 Last Admin: 06/05/17 14:10 Dose: Not Given Potassium Chloride 10 meq/ (Premix) 100 mls @ 100 mls/hr IV Q1H [facility] Stop: 06/05/17 13:14 Last Admin: 06/05/17 15:05 Dose: 100 mls/hr Fluconazole/Sodium Chloride (200 mg/ Premix) 100 mls @ 100 mls/hr IV ONETIME ONE Stop: 06/05/17 14:59 Last Admin: 06/05/17 16:08 Dose: Not Given Fluconazole/Sodium Chloride (200 mg/ Premix) 100 mls @ 100 mls/hr IV ONETIME ONE Stop: 06/05/17 16:59 Last Admin: 06/05/17 16:40 Dose: 100 mls/hr Potassium Chloride 10 meq/ (Premix) 100 mls @ 100 mls/hr IV Q1H [facility] Stop: 06/06/17 14:14 Influenza Virus Vaccine (Pharmacy To Dose - Influenza Vaccine) 1 each IM ONETIME ONE Stop: 06/04/17 15:09 Influenza Virus Vaccine (Flulaval Quad 0475-6176) 60 mcg IM .ONCE ONE Stop: 06/04/17 15:16 Lorazepam (Ativan) 0.5 mg PO TID [facility] Lorazepam (Ativan) 0.5 mg IVPUSH Q8H [facility] Last Admin: 06/05/17 03:00 Dose: 0.5 mg Lorazepam (Ativan) 0.25 mg IVPUSH Q8H [facility] Lorazepam (Ativan) 0.25 mg IVPUSH Q8H [facility] Last Admin: 06/06/17 02:51 Dose: Not Given Miscellaneous Information (Remove Patch) 1 ea TRDERM Q72H [facility] Ondansetron HCl (Zofran) 4 mg IVPUSH ONETIME ONE Stop: 06/04/17 10:30 Last Admin: 06/04/17 10:47 Dose: 4 mg Pneumococcal Polyvalent Vaccine (Pneumovax 23) 0.5 ml IM .ONCE ONE Stop: 06/04/17 15:09 Potassium Chloride (Klor-Con M20) 40 meq PO ONETIME ONE Stop: 06/05/17 08:01 Consult PN Assessment/Plan Procedures: Procedures ASSAY OF AMYLASE (04/13/16) ASSAY OF FREE THYROXINE (04/13/16) ASSAY OF LACTIC ACID (01/20/17) ASSAY OF LIPASE (04/13/16) ASSAY OF MAGNESIUM (01/20/17) ASSAY OF PHOSPHORUS (04/13/16) ASSAY THYROID STIM HORMONE (04/13/16) C DIFF AMPLIFIED PROBE (04/13/16) C-REACTIVE PROTEIN (01/20/17) CHEST X-RAY 1 VIEW FRONTAL (04/13/16) CHEST X-RAY 2VW FRONTAL&LATL (01/20/17) COMPLETE CBC W/AUTO DIFF WBC (01/20/17) COMPREHEN METABOLIC PANEL (01/20/17) CT ABD & PELV W/CONTRAST (04/13/16) CT ABD & PELVIS W/O CONTRAST (01/20/17) DIAGNOSTIC COLONOSCOPY (03/13/17) DRUG ASSAY CLOZAPINE (04/13/16) EGD BIOPSY SINGLE/MULTIPLE (03/13/17) EMERGENCY DEPT VISIT (01/20/17) EMERGENCY DEPT VISIT (08/15/14) EVALUATE SWALLOWING FUNCTION (11/26/13) GAIT TRAINING THERAPY (01/20/17) HPYLORI STOOL IA (04/13/16) HYDRATE IV INFUSION ADD-ON (01/20/17) INSERT PICC CATH (04/13/16) LACTATE (LD) (LDH) ENZYME (04/13/16) METABOLIC PANEL TOTAL CA (01/20/17) OCCULT BLD FECES 1-3 TESTS (04/13/16) OCCULT BLOOD FECES (01/20/17) OT EVAL MOD COMPLEX 45 MIN (01/20/17) OT EVALUATION (04/13/16) PT EVAL MOD COMPLEX 30 MIN (01/20/17) PT EVALUATION (04/13/16) RBC SED RATE AUTOMATED (04/13/16) ROUTINE VENIPUNCTURE (01/20/17) STOOL CULTR AEROBIC BACT EA (04/13/16) THER/PROPH/DIAG INJ IV PUSH (01/20/17) THER/PROPH/DIAG IV INF INIT (08/15/14) THERAPEUTIC ACTIVITIES (04/13/16) TX/PRO/DX INJ NEW DRUG ADDON (01/20/17) URINALYSIS AUTO W/SCOPE (01/20/17) URINE CULTURE/COLONY COUNT (04/13/16) VANOMYCIN DNA AMP PROBE (04/13/16) VITAMIN D 25 HYDROXY (04/13/16) X-RAY EXAM OF ABDOMEN (01/20/17) X-RAY EXAM OF ABDOMEN (01/20/17) X-RAY EXAM OF ABDOMEN (04/13/16) X-RAY EXAM OF ABDOMEN (04/13/16) X-RAY EXAM SERIES ABDOMEN (04/13/16) Problem List Initiated/Reviewed/Updated: Yes My Orders Last 24 Hours: surgical consult dictated [facility]
[2017-06-06] MEDS: Acetaminophen 325 MG Tab PO PRN (17:30)
--- NOTE | 2017-06-06 18:58 | PCM.SN ---
- Free Text/Narrative Note: Anesthesia noted: Start: 1844 Stop: 1855 IV start to left hand times one attempt, 22 gauge and flushed with ease 10ml's of normal saline.
[2017-06-06] MEDS: Latanoprost 0.005% Ophth Soln 2.5 ML Bottle EYEBOTH SCH (21:34)
[2017-06-07] MEDS: Metoclopramide 10 MG/2 ML SDV IVPUSH SCH ×2 (03:12→09:44)
[2017-06-07] MEDS: LORazepam 2 MG/ML SDV IVPUSH SCH ×4 (03:13→17:15)
[2017-06-07] MEDS: Pantoprazole 40 MG Vial IVPUSH SCH ×3 (05:42→17:15)
[2017-06-07] MEDS: Levothyroxine 88 MCG Tab PO SCH (05:42)
[2017-06-07] MEDS: Dextrose 5%-0.9% NaCl 1,000 ML IV SCH ×2 (05:42→16:13)
[2017-06-07] MEDS: cloZAPine 100 MG Tab PO SCH ×3 (06:30→22:46)
[2017-06-07] MEDS ORDERED: Furosemide 20 MG/2 ML VIAL IVPUSH ONE ×2 (07:30→10:15)
--- NOTE | 2017-06-07 07:51 | CONS ---
CONSULTING PHYSICIAN: Star Franks MD DATE OF CONSULTATION: 06/06/2017 HISTORY OF PRESENT ILLNESS: A 62-year-old who came in on the with vomiting, where x-ray in the emergency room demonstrated a small bowel obstruction. She had a history of about 10 years ago, a laparotomy for acute appendicitis. She had an NG tube placed with improvement, but she refused the NG tube. She has a history of schizophrenia and reported history of bilateral frontal lobotomies. Also history told to the social service worker that she has been taking large amount of Imodium at home. She has had a previous admission for similar problem in January. She was treated with NG suction and resolved. The patient's CT scan has not been done. PAST MEDICAL HISTORY: As stated above consist of hypothyroidism, hypertension, elevated cholesterol, gastroesophageal reflux disease, and schizophrenia. Hypothyroidism, treated. PAST SURGICAL HISTORY: Breast implant in addition to an appendectomy done through a laparotomy. FAMILY HISTORY: Negative. SOCIAL HISTORY: No smoking. No drug use, although she says she was an opium addict years ago. Denies any alcohol use or recreational drug use. REVIEW OF SYSTEMS: Difficult to obtain, but no chest pain, shortness of breath, cough, hoarseness, wheezing, fainting, weakness, numbness, convulsions. PHYSICAL EXAMINATION: VITAL SIGNS: Demonstrates temperature 98, pulse 93, respirations 20, blood pressure 109/62, 93% on a liter of O2. EYES: Sclerae white. Extraocular muscle motion normal. ORAL CAVITY: Healthy mucous membrane with mouth and tongue. NECK: Supple. No nodes. No thyromegaly. LUNGS: Clear. No rales, rhonchi, fremitus, or dullness. CARDIAC: Heart tones regular rate. No S3, S4, jugular venous distention, or murmurs. ABDOMEN: Soft. No tenderness, guarding, or rebound. Bowel sounds are quiet. EXTREMITIES: No ventral or inguinal hernias noted in upper and lower extremities. No angulation deformities. NEUROLOGIC: Cranial nerves III through XII intact. 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 Laboratory reviewed along with the x-rays. ASSESSMENT: 1. Small bowel obstruction, improving with NG suction. 2. Elevated glucose. 3. Chronic renal failure. 4. Improving. However, patient has pulled out her NG tube and would not allow to be replaced. I would recommend continuing n.p.o. and give enemas and follow her clinical course. MMAUGUST /[id number]
[2017-06-07] MEDS: Saccharomyces Boulardii (Probiotic) 250 MG Cap PO SCH ×2 (09:44→22:45)
[2017-06-07] MEDS: Enoxaparin 40 MG/0.4 ML Syringe SUBCUT SCH (09:44)
[2017-06-07] MEDS: Nystatin Topical Powder 15 GM Bottle TOP SCH ×3 (10:00→22:47)
[2017-06-07] MEDS: Atenolol 25 MG Tab PO SCH (10:00)
[2017-06-07] MEDS: amLODIPine 2.5 MG Tab PO SCH (10:00)
--- NOTE | 2017-06-07 12:54 | PCM.PN ---
- General Info Date of Service: 06/07/17 Functional Status: Reports: Pain Controlled, Ambulating (but did refuse to ambulate with nursing last night and this morning), Urinating (incontinent), Incentive Spirometry. Denies: Tolerating Diet (NPO), New Symptoms - Review of Systems General: Denies: Fever HEENT: Reports: No Symptoms Pulmonary: Reports: No Symptoms. Denies: Shortness of Breath, Pleuritic Chest Pain, Cough Cardiovascular: Reports: No Symptoms. Denies: Chest Pain, Palpitations Gastrointestinal: Reports: Abdominal Pain. Denies: Diarrhea, Nausea (denies nausea this morning or overnight), Vomiting Genitourinary: Reports: No Symptoms Neurological: Reports: No Symptoms Psychiatric: Reports: Mood Lability, Other (tangential thoughts, does not follow conversation.) - Patient Data Vitals - Most Recent: Last Vital Signs Temp 98.8 F 06/07/17 11:41 Pulse 70 06/07/17 11:41 Resp 18 06/07/17 11:41 BP 128/76 06/07/17 11:41 Pulse Ox 96 06/07/17 11:41 Weight - Most Recent: 161 lb 6.4 oz I&O - Last 24 Hours: Intake & Output 06/06/17 06/07/17 06/07/17 22:59 06:59 14:59 Intake Total 2020 1590 Output Total 600 Balance 1420 1590 Lab Results Last 24 Hours: Laboratory Results - last 24 hr 06/06/17 06/06/17 06/07/17 Range/Units 17:56 20:20 01:33 WBC (3.98-10.04) K/mm3 RBC (3.98-5.22) M/mm3 Hgb (11.2-15.7) gm/L Hct (34.1-44.9) % MCV (79.4-94.8) fl MCH (25.6-32.2) pg MCHC (32.2-35.5) g/dl RDW Std Deviation (36.4-46.3) fL Plt Count (182-369) K/mm3 MPV (9.4-12.3) fl Neut % (Auto) (34.0-71.1) % Lymph % (Auto) (19.3-51.7) % [place] % (Auto) (4.7-12.5) % Eos % (Auto) (0.7-5.8) Baso % (Auto) (0.1-1.2) % Neut # (Auto) (1.56-6.13) K/mm3 Lymph # (Auto) (1.18-3.74) K/mm3 Marathon # (Auto) (0.24-0.36) K/mm3 Eos # (Auto) (0.04-0.36) K/mm3 Baso # (Auto) (0.01-0.08) K/mm3 Sodium (136-145) mEq/L Potassium (3.5-5.1) mEq/L Chloride (98-107) mEq/L Carbon Dioxide (21-32) mEq/L Anion Gap (5-15) BUN (7-18) mg/dL Creatinine (0.55-1.02) mg/dL Est Cr Clr Drug Dosing mL/min Estimated GFR (MDRD) (>60) mL/min BUN/Creatinine Ratio (14-18) Glucose (80-115) mg/dL POC Glucose 88 110 106 (80-115) mg/dL Calcium (8.5-10.1) mg/dL Magnesium (1.8-2.4) mg/dl C-Reactive Protein (<1.0) mg/dL 06/07/17 06/07/17 06/07/17 Range/Units 05:45 05:47 05:47 WBC 8.23 (3.98-10.04) K/mm3 RBC 3.47 L (3.98-5.22) M/mm3 Hgb 9.5 L (11.2-15.7) gm/L Hct 29.2 L (34.1-44.9) % MCV 84.1 (79.4-94.8) fl MCH 27.4 (25.6-32.2) pg MCHC 32.5 (32.2-35.5) g/dl RDW Std Deviation 44.6 (36.4-46.3) fL Plt Count 340 (182-369) K/mm3 MPV 9.7 (9.4-12.3) fl Neut % (Auto) 63.9 (34.0-71.1) % Lymph % (Auto) 20.2 (19.3-51.7) % Marathon % (Auto) 13.0 H (4.7-12.5) % Eos % (Auto) 2.3 (0.7-5.8) Baso % (Auto) 0.4 (0.1-1.2) % Neut # (Auto) 5.26 (1.56-6.13) K/mm3 Lymph # (Auto) 1.66 (1.18-3.74) K/mm3 Marathon # (Auto) 1.07 H (0.24-0.36) K/mm3 Eos # (Auto) 0.19 (0.04-0.36) K/mm3 Baso # (Auto) 0.03 (0.01-0.08) K/mm3 Sodium 134 L (136-145) mEq/L Potassium 4.1 (3.5-5.1) mEq/L Chloride 103 (98-107) mEq/L Carbon Dioxide 24 (21-32) mEq/L Anion Gap 11.1 (5-15) BUN 7 (7-18) mg/dL Creatinine 0.8 (0.55-1.02) mg/dL Est Cr Clr Drug Dosing 65.61 mL/min Estimated GFR (MDRD) > 60 (>60) mL/min BUN/Creatinine Ratio 8.8 L (14-18) Glucose 93 (80-115) mg/dL POC Glucose 92 (80-115) mg/dL Calcium 8.1 L (8.5-10.1) mg/dL Magnesium 2.0 (1.8-2.4) mg/dl C-Reactive Protein 6.3 H* (<1.0) mg/dL 06/07/17 Range/Units 11:34 WBC (3.98-10.04) K/mm3 RBC (3.98-5.22) M/mm3 Hgb (11.2-15.7) gm/L Hct (34.1-44.9) % MCV (79.4-94.8) fl MCH (25.6-32.2) pg MCHC (32.2-35.5) g/dl RDW Std Deviation (36.4-46.3) fL Plt Count (182-369) K/mm3 MPV (9.4-12.3) fl Neut % (Auto) (34.0-71.1) % Lymph % (Auto) (19.3-51.7) % Marathon % (Auto) (4.7-12.5) % Eos % (Auto) (0.7-5.8) Baso % (Auto) (0.1-1.2) % Neut # (Auto) (1.56-6.13) K/mm3 Lymph # (Auto) (1.18-3.74) K/mm3 Marathon # (Auto) (0.24-0.36) K/mm3 Eos # (Auto) (0.04-0.36) K/mm3 Baso # (Auto) (0.01-0.08) K/mm3 Sodium (136-145) mEq/L Potassium (3.5-5.1) mEq/L Chloride (98-107) mEq/L Carbon Dioxide (21-32) mEq/L Anion Gap (5-15) BUN (7-18) mg/dL Creatinine (0.55-1.02) mg/dL Est Cr Clr Drug Dosing mL/min Estimated GFR (MDRD) (>60) mL/min BUN/Creatinine Ratio (14-18) Glucose (80-115) mg/dL POC Glucose 123 H (80-115) mg/dL Calcium (8.5-10.1) mg/dL Magnesium (1.8-2.4) mg/dl C-Reactive Protein (<1.0) mg/dL Navdeep Results Last 24 Hours: Microbiology 06/05/17 15:15 Wound Culture - Preliminary Face - Jaw, Right Gram Negative Rods 06/05/17 15:15 Wound Culture - Preliminary Groin, Right Gram Negative Rods Gram Negative Rods#2 06/05/17 15:15 Wound Culture - Preliminary Abdomen - Wound - Superficial Gram Negative Rods Gram Negative Rods#2 Med Orders - Current: Current Medications Acetaminophen (Tylenol) 650 mg PO Q4H PRN PRN Reason: Pain (Mild 1-3)/fever Last Admin: 06/06/17 17:30 Dose: 650 mg Albuterol/Ipratropium (Duoneb 3.0-0.5 Mg/3 Ml) 3 ml NEB Q4H PRN PRN Reason: Shortness Of Breath/wheezing Amlodipine Besylate (Norvasc) 2.5 mg PO DAILY NAEL Last Admin: 06/07/17 10:00 Dose: 2.5 mg Atenolol (Tenormin) 25 mg PO DAILY [facility] Last Admin: 06/07/17 10:00 Dose: 25 mg Bisacodyl (Dulcolax) 5 mg PO DAILY PRN PRN Reason: Constipation Last Admin: 06/06/17 06:35 Dose: 5 mg Clozapine (Clozapine) 350 mg PO BEDTIME [facility] Last Admin: 06/06/17 21:31 Dose: 350 mg Clozapine (Clozapine) 200 mg PO 0700,1700 [facility] Last Admin: 06/07/17 06:30 Dose: 200 mg Docusate Sodium (Colace) 100 mg PO BID PRN PRN Reason: Constipation Enoxaparin Sodium (Lovenox) 40 mg SUBCUT DAILY [facility] Last Admin: 06/07/17 09:44 Dose: 40 mg Dextrose/Sodium Chloride (Dextrose 5%-Normal Saline) 1,000 mls @ 100 mls/hr IV ASDIRECTED [facility] Last Admin: 06/07/17 05:42 Dose: 100 mls/hr Cefepime HCl 2 gm/ Premix 50 mls @ 100 mls/hr IV Q12H [facility] Stop: 06/09/17 12:01 Latanoprost (Xalatan 0.005% Ophth Soln) 0 ml EYEBOTH BEDTIME [facility] Last Admin: 06/06/17 21:34 Dose: 1 drop Levothyroxine Sodium (Synthroid) 88 mcg PO ACBRK [facility] Last Admin: 06/07/17 05:42 Dose: 88 mcg Lorazepam (Ativan) 0.25 mg IVPUSH Q8H [facility] Last Admin: 06/07/17 09:59 Dose: 0.25 mg Miscellaneous Information (Remove Patch) 1 ea TRDERM Q72H [facility] Nystatin (Nystop) 2 gm TOP TID [facility] Stop: 06/18/17 21:01 Last Admin: 06/07/17 10:00 Dose: 1 applic Ondansetron HCl (Zofran Odt) 4 mg PO Q6H PRN PRN Reason: nausea, able to take PO Ondansetron HCl (Zofran) 4 mg IV Q4H PRN PRN Reason: Nausea/Vomiting Pantoprazole Sodium (Protonix Iv) 40 mg IVPUSH Q12H [facility] Last Admin: 06/07/17 05:42 Dose: 40 mg Saccharomyces Boulardii (Florastor) 250 mg PO BID [facility] Last Admin: 06/07/17 09:44 Dose: 250 mg Scopolamine (Scopolamine) 1 each TRDERM Q72H PRN PRN Reason: Nausea/Vomiting Last Admin: 06/04/17 15:27 Dose: 1 each Senna/Docusate Sodium (Senna Plus) 1 tab PO BID PRN PRN Reason: Constipation Last Admin: 06/06/17 06:35 Dose: 1 tab Discontinued Medications Clozapine (Clozapine) 350 mg PO BEDTIME [facility] Last Admin: 06/05/17 16:08 Dose: Not Given Clozapine (Clozapine) 200 mg PO 0700,1700 [facility] Last Admin: 06/05/17 16:07 Dose: Not Given Clozapine (Clozapine) 350 mg PO ONETIME ONE Stop: 06/04/17 23:31 Last Admin: 06/04/17 23:35 Dose: 350 mg Furosemide (Lasix) 10 mg IVPUSH NOW ONE Stop: 06/07/17 07:31 Last Admin: 06/07/17 10:17 Dose: Not Given Furosemide (Lasix) 10 mg IVPUSH NOW ONE Stop: 06/07/17 10:16 Last Admin: 06/07/17 10:16 Dose: 10 mg Sodium Chloride (Normal Saline) 1,000 mls @ 999 mls/hr IV ONETIME ONE Stop: 06/04/17 11:29 Last Admin: 06/04/17 10:49 Dose: 999 mls/hr Sodium Chloride (Normal Saline) 1,000 mls @ 999 mls/hr IV ONETIME ONE Stop: 06/04/17 14:22 Last Admin: 06/04/17 13:28 Dose: 999 mls/hr Sodium Chloride (Normal Saline) 1,000 mls @ 75 mls/hr IV ASDIRECTED [facility] Last Admin: 06/04/17 15:45 Dose: 75 mls/hr Premix 1 bag/ Magnesium (Sulfate) 50 mls @ 50 mls/hr IV ONETIME ONE Stop: 06/04/17 17:14 Last Admin: 06/04/17 17:26 Dose: 50 mls/hr Fluconazole/Sodium Chloride (200 mg/ Premix) 100 mls @ 100 mls/hr IV ONETIME ONE Stop: 06/05/17 08:59 Last Admin: 06/05/17 09:27 Dose: Not Given Potassium Chloride 10 meq/ (Premix) 100 mls @ 100 mls/hr IV Q1H [facility] Stop: 06/05/17 11:44 Last Admin: 06/05/17 14:10 Dose: Not Given Potassium Chloride 10 meq/ (Premix) 100 mls @ 100 mls/hr IV Q1H [facility] Stop: 06/05/17 13:14 Last Admin: 06/05/17 15:05 Dose: 100 mls/hr Fluconazole/Sodium Chloride (200 mg/ Premix) 100 mls @ 100 mls/hr IV ONETIME ONE Stop: 06/05/17 14:59 Last Admin: 06/05/17 16:08 Dose: Not Given Fluconazole/Sodium Chloride (200 mg/ Premix) 100 mls @ 100 mls/hr IV ONETIME ONE Stop: 06/05/17 16:59 Last Admin: 06/05/17 16:40 Dose: 100 mls/hr Potassium Chloride 10 meq/ (Premix) 100 mls @ 100 mls/hr IV Q1H [facility] Stop: 06/06/17 14:14 Last Admin: 06/06/17 13:29 Dose: Not Given Potassium Chloride 10 meq/ (Premix) 100 mls @ 100 mls/hr IV Q1H [facility] Stop: 06/06/17 15:59 Last Admin: 06/06/17 19:52 Dose: 100 mls/hr Influenza Virus Vaccine (Pharmacy To Dose - Influenza Vaccine) 1 each IM ONETIME ONE Stop: 06/04/17 15:09 Influenza Virus Vaccine (Flulaval Quad 9026-5954) 60 mcg IM .ONCE ONE Stop: 06/04/17 15:16 Lorazepam (Ativan) 0.5 mg PO TID NAEL Lorazepam (Ativan) 0.5 mg IVPUSH Q8H [facility] Last Admin: 06/05/17 03:00 Dose: 0.5 mg Lorazepam (Ativan) 0.25 mg IVPUSH Q8H [facility] Lorazepam (Ativan) 0.25 mg IVPUSH Q8H [facility] Last Admin: 06/06/17 02:51 Dose: Not Given Lorazepam (Ativan) 0.25 mg IVPUSH Q6H PRN PRN Reason: restlessness Last Admin: 06/06/17 10:15 Dose: 0.25 mg Magnesium Sulfate (Pharmacy To Dose - Magnesium Replacement) 1 dose .XX ASDIRECTED [facility] Metoclopramide HCl (Reglan) 5 mg IVPUSH Q8H [facility] Last Admin: 06/07/17 09:44 Dose: 5 mg Miscellaneous Information (Remove Patch) 1 ea TRDERM Q72H [facility] Ondansetron HCl (Zofran) 4 mg IVPUSH ONETIME ONE Stop: 06/04/17 10:30 Last Admin: 06/04/17 10:47 Dose: 4 mg Pneumococcal Polyvalent Vaccine (Pneumovax 23) 0.5 ml IM .ONCE ONE Stop: 06/04/17 15:09 Potassium Chloride (Pharmacy To Dose - Potassium Replacement) 1 dose .XX ASDIRECTED [facility] Potassium Chloride (Klor-Con M20) 40 meq PO ONETIME ONE Stop: 06/05/17 08:01 - Exam Quality Assessment: DVT Prophylaxis General: Alert, Cooperative, No Acute Distress HEENT: Pupils Equal, EOMI, Mucous Membr. Moist/Continental Neck: Supple Lungs: Normal Respiratory Effort GI/Abdominal Exam: Soft, Distended (more so than with yesterdays exam), Tender ( diffuse, mild. ), Abnormal Bowel Sounds (hypoactive but present), Other ( tympanic with percussion). No: Guarding, Rigid, Rebound (Female) Exam: Deferred Extremities: Normal Capillary Refill Neurological: Normal Speech, Normal Tone Psy/Mental Status: Alert, Labile Mood, Other (tangential thoughts, does not follow conversation well) - Problem List & Annotations (1) SBO (small bowel obstruction) SNOMED Code(s): 418513513 Code(s): K56.69 - OTHER INTESTINAL OBSTRUCTION * DO NOT USE * Status: Acute Priority: High Current Visit: Yes (2) Nausea and vomiting SNOMED Code(s): 53081186 Code(s): R11.2 - NAUSEA WITH VOMITING, UNSPECIFIED Status: Resolved Priority: High Current Visit: Yes Qualifiers: Vomiting type: unspecified (3) Fall SNOMED Code(s): 6082187 Code(s): W19.XXXA - UNSPECIFIED FALL, INITIAL ENCOUNTER Status: Resolved Priority: High Current Visit: Yes Qualifiers: Encounter type: initial encounter Qualified Code(s): W19.XXXA - Unspecified fall, initial encounter (4) Acute kidney injury SNOMED Code(s): 11788623 Code(s): N17.9 - ACUTE KIDNEY FAILURE, UNSPECIFIED Status: Acute Priority : High Current Visit: Yes (5) Hypokalemia SNOMED Code(s): 17511209 Code(s): E87.6 - HYPOKALEMIA Status: Resolved Priority: High Current Visit: No (6) Dehydration SNOMED Code(s): 18997799 Code(s): E86.0 - DEHYDRATION Status: Resolved Priority: High Current Visit: Yes (7) Candidal dermatitis SNOMED Code(s): 80962018 Code(s): B37.2 - CANDIDIASIS OF SKIN AND NAIL Status: Acute Priority: High Current Visit: Yes (8) Leukocytosis SNOMED Code(s): 330600179 Code(s): D72.829 - ELEVATED WHITE BLOOD CELL COUNT, UNSPECIFIED Status: Acute Priority: Medium Current Visit: Yes Qualifiers: Leukocytosis type: unspecified Qualified Code(s): D72.829 - Elevated white blood cell count, unspecified (9) Schizophrenia SNOMED Code(s): 13294102 Code(s): F20.9 - SCHIZOPHRENIA, UNSPECIFIED Status: Chronic Priority: Medium Current Visit: Yes Qualifiers: Schizophrenia type: paranoid schizophrenia Qualified Code(s): F20.0 - Paranoid schizophrenia - Problem List Review Problem List Initiated/Reviewed/Updated: Yes - My Orders Last 24 Hours: My Active Orders 06/06/17 18:00 LORazepam [Ativan] 0.25 mg IVPUSH Q8H 06/08/17 08:00 Abdomen 2V AP Flat Upright [CR] Routine - Plan Plan:: I/P: Acute: SBO -Generalized abdominal pain; N&V 24 hrs [facility]AVER, 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 Haziness within the pelvis as described. -Repeat 2 view abdomen: no radiologist report back yet--wet read, with some improvement noted with some decompression air fluid levels but still present. Await report. Report with minimal changes noted. -Repeat abd film tomorrow. -Hx/o SOB due to adhesions - hospitalized last January -CRP 13.0-->14.3-->9.2-->6.3 -PRN antiemetics -NPO - NG tube in place---patient pulled NG tube out yesterday (06/06/17) and has adamantly refused to have it reinserted despite multiple attempts to educate re: necessity for NG tube, likelihood this will not resolve and/or need for possible surgery if not resolved or worsened. -Since NG is out per Dr. Franks recommendations will continue with daily fleets enemas. -D5NS for fluids -Reglan IV Q8H-- no changes noted thus far, will discontinue -Ambulate QID; is was ambulatory yesterday morning, but has refused last night and this morning. -IS Q2H [place] -General surgery consult--Dr. Franks is following patient as of yesterday afternoon. Hypokalemia--resolved -Replete and monitor daily labs Anemia -Hgb 10.1 on admit-->8.8-->9.5 -Likely some dilutional -Eval with iron studies, B12, folic acic and occult stool when able to collect; Iron level is low---hold off on PO iron supplementation until SBO resolves. -Cont to follow am labs -Asymptomatic thus far Candidal dermatitis vs hidradenitis suppurativa vs. bacterial infection -Lesions noted scattered over body but especially in groin and under breasts -Patient avoids bathing/showers -WBC 12.87; CRP 13.0 -Pt. reports she is seeing dermatology for this and "has a cream" - no cream noted on home med list -Caregiver to call and update what cream pt. takes - she has not been utilizing it -Nystatin powder -Diflucan IV -Florastor -Culture wound - with GNR present- cefipime x 48 hours Resolved: Dehydration--improved to resolved -Poor oral intake - caregiver reports diet is mostly Diet Coke -Hct 33, creatinine 2.2, orthostatic hypotension in ED, dry mucous membranes , dianelys urine -1L fluid bolus in ED -Fluids as ordered -[employer] consult Hyponatremia--resolved -Sodium 126 in ED -1L fluid bolus given -IV fluids as ordered -Consider thermotabs -Monitor Fall in bathroom 06/05/17 morning, striking head and left elbow----no further dizziness or concerning symptoms -Head CT -- negative for acute findings -Wound care/bandaid to elbow -Decrease ativan dose from 0.5 to 0.25mg IV Q8H -PT/OT -Fall precautions/up with assist at all times Chronic: HLD HTN - stable, home and PRN BP meds as needed GERD - Protonix IV Seizures- home meds Anxiety - ativan IVP for now, once able to take PO back to home dose Schizophrenia - home meds Hypothyroidism - Check TSH--normal at 1.295 Anemia - as above Plan Admit to medical floor PT/OT CM/SW for discharge planning---LOS likely 2-3 more days pending progress/ resolution of SBO PT/OT Routine AM labs Home medications Other orders as indicated above. She has a new seat cover installer who was approved by the court earlier this year and is listed in her chart. The seat cover installer reports she is just trying now to get things in order and improve follow-up, etc. Code status: Full code. PCP: Dr. Bryson at [facility]. Psychiatrist: Dr. Greenberg. [facility] also assists her.
[2017-06-07] MEDS: Cefepime 2 GM in Premix Bag 1 BAG IV SCH (13:09)
[2017-06-07] MEDS: Latanoprost 0.005% Ophth Soln 2.5 ML Bottle EYEBOTH SCH (22:47)
--- NOTE | 2017-06-08 01:32 | PCM.SN ---
- Free Text/Narrative Note: Anesthesia IV start. [id number] Called for difficult IV start. 20 ga IV inserted in her left upper arm using ultrasound guidance. 1% lidocaine used for skin local. Good blood return, flushed with 20 ml normal saline, tegaderm applied. Mehul Mcintosh
[2017-06-08] MEDS: Cefepime 2 GM in Premix Bag 1 BAG IV SCH ×2 (01:36→11:36)
[2017-06-08] MEDS: LORazepam 2 MG/ML SDV IVPUSH SCH ×3 (01:37→17:48)
[2017-06-08] MEDS: Dextrose 5%-0.9% NaCl 1,000 ML IV SCH ×2 (05:27→15:09)
[2017-06-08] MEDS: Levothyroxine 88 MCG Tab PO SCH (05:51)
[2017-06-08] MEDS: Pantoprazole 40 MG Vial IVPUSH SCH (05:53)
--- NOTE | 2017-06-08 09:48 | CR ---
Abdomen: Supine and upright views of the abdomen were obtained. Comparison: Prior abdominal x-ray of 06/06/17. Scattered gas is again noted within small bowel as well as lesser colonic gas being seen. Findings are compatible with persisting distal small bowel obstruction although small bowel dilatation has improved from previous exam. Slightly dilated loop of bowel is seen within the left abdomen most likely within the colon and splenic flexure. Blunting of the costophrenic angles are seen which is stable. Stable phleboliths seen within the pelvis. Previous nasogastric tube has been removed. Mild scoliosis and degenerative change is noted within the spine. Impression: 1. Persisting distal small bowel obstruction. The amount of small bowel dilatation has improved from prior exam. 2. Slightly prominent gas within the left colon likely due to a mild ileus. 3. Removal of previous nasogastric tube and other incidental findings. Diagnostic code #3
[2017-06-08] MEDS: Saccharomyces Boulardii (Probiotic) 250 MG Cap PO SCH ×2 (11:30→21:46)
[2017-06-08] MEDS: amLODIPine 2.5 MG Tab PO SCH (11:30)
[2017-06-08] MEDS: Atenolol 25 MG Tab PO SCH (11:32)
[2017-06-08] MEDS: cloZAPine 100 MG Tab PO SCH ×3 (11:32→21:47)
[2017-06-08] MEDS: Enoxaparin 40 MG/0.4 ML Syringe SUBCUT SCH (11:35)
[2017-06-08] MEDS: Nystatin Topical Powder 15 GM Bottle TOP SCH ×3 (11:36→21:53)
[2017-06-08] MEDS: Acetaminophen 325 MG Tab PO PRN ×2 (11:56→18:01)
--- NOTE | 2017-06-08 14:40 | PCM.PN ---
- General Info Date of Service: 06/08/17 Functional Status: Reports: Pain Controlled, Other (NPO) - Review of Systems General: Reports: No Symptoms HEENT: Reports: No Symptoms Pulmonary: Reports: No Symptoms Cardiovascular: Reports: No Symptoms Gastrointestinal: Reports: No Symptoms Genitourinary: Reports: No Symptoms Musculoskeletal: Reports: No Symptoms Skin: Reports: No Symptoms Neurological: Reports: No Symptoms Psychiatric: Reports: No Symptoms - Patient Data Vitals - Most Recent: Last Vital Signs Temp 36.7 C 06/08/17 11:31 Pulse 81 06/08/17 11:32 Resp 20 06/08/17 11:31 BP 147/74 H 06/08/17 11:32 Pulse Ox 98 06/08/17 11:31 Weight - Most Recent: 72.348 kg I&O - Last 24 Hours: Intake & Output 06/07/17 06/08/17 06/08/17 22:59 06:59 14:59 Intake Total 1258 1293 Output Total 600 Balance 658 1293 Lab Results Last 24 Hours: Laboratory Results - last 24 hr 06/07/17 06/07/17 06/07/17 Range/Units 13:55 19:14 22:42 WBC (3.98-10.04) K/mm3 RBC (3.98-5.22) M/mm3 Hgb (11.2-15.7) gm/L Hct (34.1-44.9) % MCV (79.4-94.8) fl MCH (25.6-32.2) pg MCHC (32.2-35.5) g/dl RDW Std Deviation (36.4-46.3) fL Plt Count (182-369) K/mm3 MPV (9.4-12.3) fl Neut % (Auto) (34.0-71.1) % Lymph % (Auto) (19.3-51.7) % [place] % (Auto) (4.7-12.5) % Eos % (Auto) (0.7-5.8) Baso % (Auto) (0.1-1.2) % Neut # (Auto) (1.56-6.13) K/mm3 Lymph # (Auto) (1.18-3.74) K/mm3 [place] # (Auto) (0.24-0.36) K/mm3 Eos # (Auto) (0.04-0.36) K/mm3 Baso # (Auto) (0.01-0.08) K/mm3 Sodium (136-145) mEq/L Potassium (3.5-5.1) mEq/L Chloride (98-107) mEq/L Carbon Dioxide (21-32) mEq/L Anion Gap (5-15) BUN (7-18) mg/dL Creatinine (0.55-1.02) mg/dL Est Cr Clr Drug Dosing mL/min Estimated GFR (MDRD) (>60) mL/min BUN/Creatinine Ratio (14-18) Glucose (80-115) mg/dL POC Glucose 123 H 97 (80-115) mg/dL Lactic Acid 0.8 (0.4-2.0) mmol/L Calcium (8.5-10.1) mg/dL Magnesium (1.8-2.4) mg/dl C-Reactive Protein (<1.0) mg/dL 06/08/17 06/08/17 06/08/17 Range/Units 06:05 06:05 06:07 WBC 7.00 (3.98-10.04) K/mm3 RBC 3.21 L (3.98-5.22) M/mm3 Hgb 8.8 L (11.2-15.7) gm/L Hct 27.0 L (34.1-44.9) % MCV 84.1 (79.4-94.8) fl MCH 27.4 (25.6-32.2) pg MCHC 32.6 (32.2-35.5) g/dl RDW Std Deviation 44.0 (36.4-46.3) fL Plt Count 314 (182-369) K/mm3 MPV 8.6 L (9.4-12.3) fl Neut % (Auto) 61.6 (34.0-71.1) % Lymph % (Auto) 21.3 (19.3-51.7) % [place] % (Auto) 13.3 H (4.7-12.5) % Eos % (Auto) 2.7 (0.7-5.8) Baso % (Auto) 0.4 (0.1-1.2) % Neut # (Auto) 4.31 (1.56-6.13) K/mm3 Lymph # (Auto) 1.49 (1.18-3.74) K/mm3 [place] # (Auto) 0.93 H (0.24-0.36) K/mm3 Eos # (Auto) 0.19 (0.04-0.36) K/mm3 Baso # (Auto) 0.03 (0.01-0.08) K/mm3 Sodium 135 L (136-145) mEq/L Potassium 3.2 L (3.5-5.1) mEq/L Chloride 104 (98-107) mEq/L Carbon Dioxide 22 (21-32) mEq/L Anion Gap 12.2 (5-15) BUN 4 L (7-18) mg/dL Creatinine 0.7 (0.55-1.02) mg/dL Est Cr Clr Drug Dosing 74.98 mL/min Estimated GFR (MDRD) > 60 (>60) mL/min BUN/Creatinine Ratio 5.7 L (14-18) Glucose 116 H (80-115) mg/dL POC Glucose 112 (80-115) mg/dL Lactic Acid (0.4-2.0) mmol/L Calcium 8.0 L (8.5-10.1) mg/dL Magnesium 1.8 (1.8-2.4) mg/dl C-Reactive Protein 3.4 H* (<1.0) mg/dL 06/08/17 Range/Units 12:37 WBC (3.98-10.04) K/mm3 RBC (3.98-5.22) M/mm3 Hgb (11.2-15.7) gm/L Hct (34.1-44.9) % MCV (79.4-94.8) fl MCH (25.6-32.2) pg MCHC (32.2-35.5) g/dl RDW Std Deviation (36.4-46.3) fL Plt Count (182-369) K/mm3 MPV (9.4-12.3) fl Neut % (Auto) (34.0-71.1) % Lymph % (Auto) (19.3-51.7) % [place] % (Auto) (4.7-12.5) % Eos % (Auto) (0.7-5.8) Baso % (Auto) (0.1-1.2) % Neut # (Auto) (1.56-6.13) K/mm3 Lymph # (Auto) (1.18-3.74) K/mm3 [place] # (Auto) (0.24-0.36) K/mm3 Eos # (Auto) (0.04-0.36) K/mm3 Baso # (Auto) (0.01-0.08) K/mm3 Sodium (136-145) mEq/L Potassium (3.5-5.1) mEq/L Chloride (98-107) mEq/L Carbon Dioxide (21-32) mEq/L Anion Gap (5-15) BUN (7-18) mg/dL Creatinine (0.55-1.02) mg/dL Est Cr Clr Drug Dosing mL/min Estimated GFR (MDRD) (>60) mL/min BUN/Creatinine Ratio (14-18) Glucose (80-115) mg/dL POC Glucose 124 H (80-115) mg/dL Lactic Acid (0.4-2.0) mmol/L Calcium (8.5-10.1) mg/dL Magnesium (1.8-2.4) mg/dl C-Reactive Protein (<1.0) mg/dL [place] Results Last 24 Hours: Microbiology 06/05/17 15:15 Wound Culture - Final Face - Jaw, Right Enterobacter Aerogenes 06/05/17 15:15 Wound Culture - Final Groin, Right Proteus Mirabilis Enterobacter Aerogenes 06/05/17 15:15 Wound Culture - Final Abdomen - Wound - Superficial Proteus Mirabilis Enterobacter Aerogenes 06/07/17 15:00 Stool Occult Blood (NAVDEEP) - Final Stool / Feces Med Orders - Current: Current Medications Acetaminophen (Tylenol) 650 mg PO Q4H PRN PRN Reason: Pain (Mild 1-3)/fever Last Admin: 06/08/17 11:56 Dose: 650 mg Albuterol/Ipratropium (Duoneb 3.0-0.5 Mg/3 Ml) 3 ml NEB Q4H PRN PRN Reason: Shortness Of Breath/wheezing Amlodipine Besylate (Norvasc) 2.5 mg PO DAILY [facility] Last Admin: 06/08/17 11:30 Dose: 2.5 mg Atenolol (Tenormin) 25 mg PO DAILY [facility] Last Admin: 06/08/17 11:32 Dose: 25 mg Bisacodyl (Dulcolax) 5 mg PO DAILY PRN PRN Reason: Constipation Last Admin: 06/06/17 06:35 Dose: 5 mg Clozapine (Clozapine) 350 mg PO BEDTIME [facility] Last Admin: 06/07/17 22:46 Dose: 350 mg Clozapine (Clozapine) 200 mg PO 0700,1700 [facility] Last Admin: 06/08/17 11:32 Dose: 200 mg Docusate Sodium (Colace) 100 mg PO BID PRN PRN Reason: Constipation Enoxaparin Sodium (Lovenox) 40 mg SUBCUT DAILY [facility] Last Admin: 06/08/17 11:35 Dose: 40 mg Famotidine (Pepcid) 20 mg IVPUSH BID [facility] Dextrose/Sodium Chloride (Dextrose 5%-Normal Saline) 1,000 mls @ 100 mls/hr IV ASDIRECTED [facility] Last Admin: 06/08/17 05:27 Dose: 100 mls/hr Cefepime HCl 2 gm/ Premix 50 mls @ 100 mls/hr IV Q12H [facility] Stop: 06/09/17 12:01 Last Admin: 06/08/17 11:36 Dose: 100 mls/hr Latanoprost (Xalatan 0.005% Ophth Soln) 0 ml EYEBOTH BEDTIME [facility] Last Admin: 06/07/17 22:47 Dose: 1 drop Levothyroxine Sodium (Synthroid) 88 mcg PO ACBRK [facility] Last Admin: 06/08/17 05:51 Dose: 88 mcg Lorazepam (Ativan) 0.25 mg IVPUSH Q8H [facility] Last Admin: 06/08/17 11:36 Dose: 0.25 mg Miscellaneous Information (Remove Patch) 1 ea TRDERM Q72H [facility] Last Admin: 06/07/17 16:42 Dose: 1 ea Nystatin (Nystop) 2 gm TOP TID [facility] Stop: 06/18/17 21:01 Last Admin: 06/08/17 11:36 Dose: 1 applic Ondansetron HCl (Zofran Odt) 4 mg PO Q6H PRN PRN Reason: nausea, able to take PO Ondansetron HCl (Zofran) 4 mg IV Q4H PRN PRN Reason: Nausea/Vomiting Saccharomyces Boulardii (Florastor) 250 mg PO BID [facility] Last Admin: 06/08/17 11:30 Dose: 250 mg Scopolamine (Scopolamine) 1 each TRDERM Q72H PRN PRN Reason: Nausea/Vomiting Last Admin: 06/04/17 15:27 Dose: 1 each Senna/Docusate Sodium (Senna Plus) 1 tab PO BID PRN PRN Reason: Constipation Last Admin: 06/06/17 06:35 Dose: 1 tab Discontinued Medications Clozapine (Clozapine) 350 mg PO BEDTIME [facility] Last Admin: 06/05/17 16:08 Dose: Not Given Clozapine (Clozapine) 200 mg PO 0700,1700 [facility] Last Admin: 06/05/17 16:07 Dose: Not Given Clozapine (Clozapine) 350 mg PO ONETIME ONE Stop: 06/04/17 23:31 Last Admin: 06/04/17 23:35 Dose: 350 mg Furosemide (Lasix) 10 mg IVPUSH NOW ONE Stop: 06/07/17 07:31 Last Admin: 06/07/17 10:17 Dose: Not Given Furosemide (Lasix) 10 mg IVPUSH NOW ONE Stop: 06/07/17 10:16 Last Admin: 06/07/17 10:16 Dose: 10 mg Sodium Chloride (Normal Saline) 1,000 mls @ 999 mls/hr IV ONETIME ONE Stop: 06/04/17 11:29 Last Admin: 06/04/17 10:49 Dose: 999 mls/hr Sodium Chloride (Normal Saline) 1,000 mls @ 999 mls/hr IV ONETIME ONE Stop: 06/04/17 14:22 Last Admin: 06/04/17 13:28 Dose: 999 mls/hr Sodium Chloride (Normal Saline) 1,000 mls @ 75 mls/hr IV ASDIRECTED [facility] Last Admin: 06/04/17 15:45 Dose: 75 mls/hr Premix 1 bag/ Magnesium (Sulfate) 50 mls @ 50 mls/hr IV ONETIME ONE Stop: 06/04/17 17:14 Last Admin: 06/04/17 17:26 Dose: 50 mls/hr Fluconazole/Sodium Chloride (200 mg/ Premix) 100 mls @ 100 mls/hr IV ONETIME ONE Stop: 06/05/17 08:59 Last Admin: 06/05/17 09:27 Dose: Not Given Potassium Chloride 10 meq/ (Premix) 100 mls @ 100 mls/hr IV Q1H [facility] Stop: 06/05/17 11:44 Last Admin: 06/05/17 14:10 Dose: Not Given Potassium Chloride 10 meq/ (Premix) 100 mls @ 100 mls/hr IV Q1H [facility] Stop: 06/05/17 13:14 Last Admin: 06/05/17 15:05 Dose: 100 mls/hr Fluconazole/Sodium Chloride (200 mg/ Premix) 100 mls @ 100 mls/hr IV ONETIME ONE Stop: 06/05/17 14:59 Last Admin: 06/05/17 16:08 Dose: Not Given Fluconazole/Sodium Chloride (200 mg/ Premix) 100 mls @ 100 mls/hr IV ONETIME ONE Stop: 06/05/17 16:59 Last Admin: 06/05/17 16:40 Dose: 100 mls/hr Potassium Chloride 10 meq/ (Premix) 100 mls @ 100 mls/hr IV Q1H [facility] Stop: 06/06/17 14:14 Last Admin: 06/06/17 13:29 Dose: Not Given Potassium Chloride 10 meq/ (Premix) 100 mls @ 100 mls/hr IV Q1H [facility] Stop: 06/06/17 15:59 Last Admin: 06/06/17 19:52 Dose: 100 mls/hr Influenza Virus Vaccine (Pharmacy To Dose - Influenza Vaccine) 1 each IM ONETIME ONE Stop: 06/04/17 15:09 Influenza Virus Vaccine (Flulaval Quad [id number]) 60 mcg IM .ONCE ONE Stop: 06/04/17 15:16 Lorazepam (Ativan) 0.5 mg PO TID [facility] Lorazepam (Ativan) 0.5 mg IVPUSH Q8H [facility] Last Admin: 06/05/17 03:00 Dose: 0.5 mg Lorazepam (Ativan) 0.25 mg IVPUSH Q8H [facility] Lorazepam (Ativan) 0.25 mg IVPUSH Q8H [facility] Last Admin: 06/06/17 02:51 Dose: Not Given Lorazepam (Ativan) 0.25 mg IVPUSH Q6H PRN PRN Reason: restlessness Last Admin: 06/06/17 10:15 Dose: 0.25 mg Magnesium Sulfate (Pharmacy To Dose - Magnesium Replacement) 1 dose .XX ASDIRECTED [facility] Metoclopramide HCl (Reglan) 5 mg IVPUSH Q8H [facility] Last Admin: 06/07/17 09:44 Dose: 5 mg Miscellaneous Information (Remove Patch) 1 ea TRDERM Q72H [facility] Ondansetron HCl (Zofran) 4 mg IVPUSH ONETIME ONE Stop: 06/04/17 10:30 Last Admin: 06/04/17 10:47 Dose: 4 mg Pantoprazole Sodium (Protonix Iv) 40 mg IVPUSH Q12H [facility] Last Admin: 06/08/17 05:53 Dose: 40 mg Pneumococcal Polyvalent Vaccine (Pneumovax 23) 0.5 ml IM .ONCE ONE Stop: 06/04/17 15:09 Potassium Chloride (Pharmacy To Dose - Potassium Replacement) 1 dose .XX ASDIRECTED [facility] Potassium Chloride (Klor-Con M20) 40 meq PO ONETIME ONE Stop: 06/05/17 08:01 - Exam Quality Assessment: DVT Prophylaxis General: Alert, Oriented, Cooperative, No Acute Distress HEENT: Pupils Equal, Pupils Reactive, EOMI Neck: Supple, Trachea Midline, No JVD Lungs: Normal Respiratory Effort Cardiovascular: Regular Rate, Regular Rhythm GI/Abdominal Exam: Soft, No Organomegaly, Distended, Tender (diffuse/no rebound or guarding), Other (hypoactive BS) (Female) Exam: Deferred Back Exam: Normal Inspection Extremities: Normal Inspection Skin: Warm Neurological: No New Focal Deficit, Normal Gait, Normal Speech Psy/Mental Status: Alert - Problem List Review Problem List Initiated/Reviewed/Updated: Yes - My Orders Last 24 Hours: My Active Orders 06/08/17 21:00 Famotidine [Pepcid] 20 mg IVPUSH BID - Plan Plan:: I/P: Acute: SBO -Generalized abdominal pain; N&V 24 hrs [employer], 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 Haziness within the pelvis as described. -Repeat 2 view abdomen: no radiologist report back yet--wet read, with some improvement noted with some decompression air fluid levels but still present. Await report. Report with minimal changes noted. -Repeat abd film, SBO improving -Hx/o SOB due to adhesions - hospitalized last January -CRP 13.0-->14.3-->9.2-->6.3 -PRN antiemetics -NPO - NG tube in place---patient pulled NG tube out yesterday (06/06/17) and has adamantly refused to have it reinserted despite multiple attempts to educate re: necessity for NG tube, likelihood this will not resolve and/or need for possible surgery if not resolved or worsened. -Since NG is out per Dr. Franks recommendations will continue with daily fleets enemas. -D5NS for fluids -Reglan IV Q8H-- no changes noted thus far, will discontinue -Ambulate QID; is was ambulatory yesterday morning, but has refused last night and this morning. -IS Q2H [place] -General surgery consult--Dr. Franks is following patient as of yesterday afternoon. Hypokalemia--resolved -Replete and monitor daily labs Anemia -Hgb 10.1 on admit-->8.8-->9.5 -Likely some dilutional -Eval with iron studies, B12, folic acic and occult stool when able to collect; Iron level is low---hold off on PO iron supplementation until SBO resolves. -Cont to follow am labs -Asymptomatic thus far Candidal dermatitis vs hidradenitis suppurativa vs. bacterial infection -Lesions noted scattered over body but especially in groin and under breasts -Patient avoids bathing/showers -WBC 12.87; CRP 13.0 -Pt. reports she is seeing dermatology for this and "has a cream" - no cream noted on home med list -Caregiver to call and update what cream pt. takes - she has not been utilizing it -Nystatin powder -Diflucan IV -Florastor -Culture wound - with GNR present- cefipime x 48 hours Resolved: Dehydration--improved to resolved -Poor oral intake - caregiver reports diet is mostly Diet Coke -Hct 33, creatinine 2.2, orthostatic hypotension in ED, dry mucous membranes , dianelys urine -1L fluid bolus in ED -Fluids as ordered -Photography Professor consult Hyponatremia--resolved -Sodium 126 in ED -1L fluid bolus given -IV fluids as ordered -Consider thermotabs -Monitor Fall in bathroom 06/05/17 morning, striking head and left elbow----no further dizziness or concerning symptoms -Head CT -- negative for acute findings -Wound care/bandaid to elbow -Decrease ativan dose from 0.5 to 0.25mg IV Q8H -PT/OT -Fall precautions/up with assist at all times Chronic: HLD HTN - stable, home and PRN BP meds as needed GERD - Protonix IV Seizures- home meds Anxiety - ativan IVP for now, once able to take PO back to home dose Schizophrenia - home meds Hypothyroidism - Check TSH--normal at 1.295 Anemia - as above Plan Repeat AXR, 06/09/17. NPO except ice chips. PT/OT CM/SW for discharge planning---LOS likely 2-3 more days pending progress/ resolution of SBO PT/OT Routine AM labs Home medications Other orders as indicated above. 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 The engine generator assembler reports she is just trying now to get things in order and improve follow-up, etc. Code status: Full code. PCP: Dr. Bryson at [facility]. Psychiatrist: Dr. Greenberg. [facility] also assists her. LOS>96 hours with slow improvement, remains NPO
[2017-06-08] MEDS: Potassium Chloride 10 MEQ in Premix Bag 1 BAG IV SCH ×2 (17:41→19:32)
[2017-06-08] MEDS: Latanoprost 0.005% Ophth Soln 2.5 ML Bottle EYEBOTH SCH (21:53)
[2017-06-08] MEDS: Famotidine 20 MG/2 ML SDV IVPUSH SCH (22:02)
[2017-06-09] MEDS: Cefepime 2 GM in Premix Bag 1 BAG IV SCH ×2 (00:31→11:21)
[2017-06-09] MEDS: LORazepam 2 MG/ML SDV IVPUSH SCH ×3 (02:03→18:06)
[2017-06-09] MEDS: Dextrose 5%-0.9% NaCl 1,000 ML IV SCH (02:08)
[2017-06-09] MEDS: Levothyroxine 88 MCG Tab PO SCH (06:31)
[2017-06-09] MEDS: cloZAPine 100 MG Tab PO SCH ×3 (08:20→21:13)
--- NOTE | 2017-06-09 09:15 | CR ---
Abdomen: Supine and upright views of the abdomen were obtained. Comparison: Previous abdominal x-ray of 06/08/17. Colonic gas is seen. Small bowel gas is seen with several loops remaining mildly prominent but findings are improved from previous study. Other portions of the abdominal x-ray appears stable from previous exam. Impression: 1. Several loops of small bowel gas remain mildly prominent but findings are improved from previous exam. 2. Increased gas noted within portions of the colon from prior exam. Diagnostic code #3
[2017-06-09] MEDS: Enoxaparin 40 MG/0.4 ML Syringe SUBCUT SCH (09:16)
[2017-06-09] MEDS: Atenolol 25 MG Tab PO SCH (09:16)
[2017-06-09] MEDS: amLODIPine 2.5 MG Tab PO SCH (09:16)
[2017-06-09] MEDS: Saccharomyces Boulardii (Probiotic) 250 MG Cap PO SCH ×2 (09:16→21:12)
[2017-06-09] MEDS: Nystatin Topical Powder 15 GM Bottle TOP SCH ×3 (09:20→14:00)
[2017-06-09] MEDS: Famotidine 20 MG/2 ML SDV IVPUSH SCH ×2 (09:21→21:14)
--- NOTE | 2017-06-09 12:44 | PCM.PN ---
- General Info Date of Service: 06/09/17 Functional Status: Reports: Tolerating Diet (improved AXR, trial clear liquids started), Ambulating, Urinating - Review of Systems General: Reports: No Symptoms HEENT: Reports: No Symptoms Pulmonary: Reports: No Symptoms Cardiovascular: Reports: No Symptoms Gastrointestinal: Reports: No Symptoms Genitourinary: Reports: No Symptoms Musculoskeletal: Reports: No Symptoms Skin: Reports: No Symptoms Neurological: Reports: No Symptoms Psychiatric: Reports: No Symptoms - Patient Data Vitals - Most Recent: Last Vital Signs Temp 36.9 C 06/09/17 12:05 Pulse 89 06/09/17 12:05 Resp 18 06/09/17 12:05 BP 119/61 06/09/17 12:05 Pulse Ox 98 06/09/17 12:05 Weight - Most Recent: 70.488 kg I&O - Last 24 Hours: Intake & Output 06/08/17 06/09/17 06/09/17 22:59 06:59 14:59 Intake Total 985 1050 600 Output Total 2350 Balance 985 -1300 600 Lab Results Last 24 Hours: Laboratory Results - last 24 hr 06/08/17 06/08/17 06/08/17 Range/Units 12:37 17:37 22:14 WBC (3.98-10.04) K/mm3 RBC (3.98-5.22) M/mm3 Hgb (11.2-15.7) gm/L Hct (34.1-44.9) % MCV (79.4-94.8) fl MCH (25.6-32.2) pg MCHC (32.2-35.5) g/dl RDW Std Deviation (36.4-46.3) fL Plt Count (182-369) K/mm3 MPV (9.4-12.3) fl Neut % (Auto) (34.0-71.1) % Lymph % (Auto) (19.3-51.7) % Chaves % (Auto) (4.7-12.5) % Eos % (Auto) (0.7-5.8) Baso % (Auto) (0.1-1.2) % Neut # (Auto) (1.56-6.13) K/mm3 Lymph # (Auto) (1.18-3.74) K/mm3 Chaves # (Auto) (0.24-0.36) K/mm3 Eos # (Auto) (0.04-0.36) K/mm3 Baso # (Auto) (0.01-0.08) K/mm3 Manual Slide Review Sodium (136-145) mEq/L Potassium (3.5-5.1) mEq/L Chloride (98-107) mEq/L Carbon Dioxide (21-32) mEq/L Anion Gap (5-15) BUN (7-18) mg/dL Creatinine (0.55-1.02) mg/dL Est Cr Clr Drug Dosing mL/min Estimated GFR (MDRD) (>60) mL/min BUN/Creatinine Ratio (14-18) Glucose (80-115) mg/dL POC Glucose 124 H 112 104 (80-115) mg/dL Lactic Acid (0.4-2.0) mmol/L Calcium (8.5-10.1) mg/dL C-Reactive Protein (<1.0) mg/dL 06/09/17 06/09/17 06/09/17 Range/Units 06:20 06:20 06:20 WBC 6.68 (3.98-10.04) K/mm3 RBC 3.30 L (3.98-5.22) M/mm3 Hgb 9.0 L (11.2-15.7) gm/L Hct 27.5 L (34.1-44.9) % MCV 83.3 (79.4-94.8) fl MCH 27.3 (25.6-32.2) pg MCHC 32.7 (32.2-35.5) g/dl RDW Std Deviation 43.9 (36.4-46.3) fL Plt Count 358 (182-369) K/mm3 MPV 9.0 L (9.4-12.3) fl Neut % (Auto) 62.9 (34.0-71.1) % Lymph % (Auto) 17.4 L (19.3-51.7) % Chaves % (Auto) 15.1 H (4.7-12.5) % Eos % (Auto) 3.6 (0.7-5.8) Baso % (Auto) 0.3 (0.1-1.2) % Neut # (Auto) 4.20 (1.56-6.13) K/mm3 Lymph # (Auto) 1.16 L (1.18-3.74) K/mm3 Chaves # (Auto) 1.01 H (0.24-0.36) K/mm3 Eos # (Auto) 0.24 (0.04-0.36) K/mm3 Baso # (Auto) 0.02 (0.01-0.08) K/mm3 Manual Slide Review Abnormal smear Sodium 135 L (136-145) mEq/L Potassium 3.1 L (3.5-5.1) mEq/L Chloride 102 (98-107) mEq/L Carbon Dioxide 25 (21-32) mEq/L Anion Gap 11.1 (5-15) BUN 2 L (7-18) mg/dL Creatinine 0.7 (0.55-1.02) mg/dL Est Cr Clr Drug Dosing 74.98 mL/min Estimated GFR (MDRD) > 60 (>60) mL/min BUN/Creatinine Ratio 2.9 L (14-18) Glucose 110 (80-115) mg/dL POC Glucose (80-115) mg/dL Lactic Acid 0.5 (0.4-2.0) mmol/L Calcium 8.0 L (8.5-10.1) mg/dL C-Reactive Protein 2.2 H* (<1.0) mg/dL 06/09/17 06/09/17 Range/Units 06:22 11:24 WBC (3.98-10.04) K/mm3 RBC (3.98-5.22) M/mm3 Hgb (11.2-15.7) gm/L Hct (34.1-44.9) % MCV (79.4-94.8) fl MCH (25.6-32.2) pg MCHC (32.2-35.5) g/dl RDW Std Deviation (36.4-46.3) fL Plt Count (182-369) K/mm3 MPV (9.4-12.3) fl Neut % (Auto) (34.0-71.1) % Lymph % (Auto) (19.3-51.7) % Chaves % (Auto) (4.7-12.5) % Eos % (Auto) (0.7-5.8) Baso % (Auto) (0.1-1.2) % Neut # (Auto) (1.56-6.13) K/mm3 Lymph # (Auto) (1.18-3.74) K/mm3 Chaves # (Auto) (0.24-0.36) K/mm3 Eos # (Auto) (0.04-0.36) K/mm3 Baso # (Auto) (0.01-0.08) K/mm3 Manual Slide Review Sodium (136-145) mEq/L Potassium (3.5-5.1) mEq/L Chloride (98-107) mEq/L Carbon Dioxide (21-32) mEq/L Anion Gap (5-15) BUN (7-18) mg/dL Creatinine (0.55-1.02) mg/dL Est Cr Clr Drug Dosing mL/min Estimated GFR (MDRD) (>60) mL/min BUN/Creatinine Ratio (14-18) Glucose (80-115) mg/dL POC Glucose 102 151 H (80-115) mg/dL Lactic Acid (0.4-2.0) mmol/L Calcium (8.5-10.1) mg/dL C-Reactive Protein (<1.0) mg/dL Navdeep Results Last 24 Hours: Microbiology 06/05/17 15:15 Wound Culture - Final Face - Jaw, Right Enterobacter Aerogenes 06/05/17 15:15 Wound Culture - Final Groin, Right Proteus Mirabilis Enterobacter Aerogenes 06/05/17 15:15 Wound Culture - Final Abdomen - Wound - Superficial Proteus Mirabilis Enterobacter Aerogenes Med Orders - Current: Current Medications Acetaminophen (Tylenol) 650 mg PO Q4H PRN PRN Reason: Pain (Mild 1-3)/fever Last Admin: 06/08/17 18:01 Dose: 650 mg Albuterol/Ipratropium (Duoneb 3.0-0.5 Mg/3 Ml) 3 ml NEB Q4H PRN PRN Reason: Shortness Of Breath/wheezing Amlodipine Besylate (Norvasc) 2.5 mg PO DAILY [facility] Last Admin: 06/09/17 09:16 Dose: 2.5 mg Atenolol (Tenormin) 25 mg PO DAILY [facility] Last Admin: 06/09/17 09:16 Dose: 25 mg Bisacodyl (Dulcolax) 5 mg PO DAILY PRN PRN Reason: Constipation Last Admin: 06/06/17 06:35 Dose: 5 mg Clozapine (Clozapine) 350 mg PO BEDTIME [facility] Last Admin: 06/08/17 21:47 Dose: 350 mg Clozapine (Clozapine) 200 mg PO 0700,1700 [facility] Last Admin: 06/09/17 08:20 Dose: 200 mg Docusate Sodium (Colace) 100 mg PO BID PRN PRN Reason: Constipation Enoxaparin Sodium (Lovenox) 40 mg SUBCUT DAILY [facility] Last Admin: 06/09/17 09:16 Dose: 40 mg Famotidine (Pepcid) 20 mg IVPUSH BID [facility] Last Admin: 06/09/17 09:21 Dose: 20 mg Dextrose/Sodium Chloride (Dextrose 5%-Normal Saline) 1,000 mls @ 100 mls/hr IV ASDIRECTED [facility] Last Admin: 06/09/17 02:08 Dose: 100 mls/hr Meropenem 500 mg/ Sodium (Chloride) 100 mls @ 200 mls/hr IV Q8H [facility] Latanoprost (Xalatan 0.005% Ophth Soln) 0 ml EYEBOTH BEDTIME [facility] Last Admin: 06/08/17 21:53 Dose: 1 drop Levothyroxine Sodium (Synthroid) 88 mcg PO ACBRK [facility] Last Admin: 06/09/17 06:31 Dose: 88 mcg Lorazepam (Ativan) 0.25 mg IVPUSH Q8H [facility] Last Admin: 06/09/17 09:21 Dose: 0.25 mg Miscellaneous Information (Remove Patch) 1 ea TRDERM Q72H [facility] Last Admin: 06/07/17 16:42 Dose: 1 ea Nystatin (Nystop) 2 gm TOP TID [facility] Stop: 06/18/17 21:01 Last Admin: 06/09/17 11:25 Dose: Not Given Ondansetron HCl (Zofran Odt) 4 mg PO Q6H PRN PRN Reason: nausea, able to take PO Ondansetron HCl (Zofran) 4 mg IV Q4H PRN PRN Reason: Nausea/Vomiting Saccharomyces Boulardii (Florastor) 250 mg PO BID [facility] Last Admin: 06/09/17 09:16 Dose: 250 mg Scopolamine (Scopolamine) 1 each TRDERM Q72H PRN PRN Reason: Nausea/Vomiting Last Admin: 06/04/17 15:27 Dose: 1 each Senna/Docusate Sodium (Senna Plus) 1 tab PO BID PRN PRN Reason: Constipation Last Admin: 06/06/17 06:35 Dose: 1 tab Discontinued Medications Clozapine (Clozapine) 350 mg PO BEDTIME [facility] Last Admin: 06/05/17 16:08 Dose: Not Given Clozapine (Clozapine) 200 mg PO 0700,1700 [facility] Last Admin: 06/05/17 16:07 Dose: Not Given Clozapine (Clozapine) 350 mg PO ONETIME ONE Stop: 06/04/17 23:31 Last Admin: 06/04/17 23:35 Dose: 350 mg Furosemide (Lasix) 10 mg IVPUSH NOW ONE Stop: 06/07/17 07:31 Last Admin: 06/07/17 10:17 Dose: Not Given Furosemide (Lasix) 10 mg IVPUSH NOW ONE Stop: 06/07/17 10:16 Last Admin: 06/07/17 10:16 Dose: 10 mg Sodium Chloride (Normal Saline) 1,000 mls @ 999 mls/hr IV ONETIME ONE Stop: 06/04/17 11:29 Last Admin: 06/04/17 10:49 Dose: 999 mls/hr Sodium Chloride (Normal Saline) 1,000 mls @ 999 mls/hr IV ONETIME ONE Stop: 06/04/17 14:22 Last Admin: 06/04/17 13:28 Dose: 999 mls/hr Sodium Chloride (Normal Saline) 1,000 mls @ 75 mls/hr IV ASDIRECTED [facility] Last Admin: 06/04/17 15:45 Dose: 75 mls/hr Premix 1 bag/ Magnesium (Sulfate) 50 mls @ 50 mls/hr IV ONETIME ONE Stop: 06/04/17 17:14 Last Admin: 06/04/17 17:26 Dose: 50 mls/hr Fluconazole/Sodium Chloride (200 mg/ Premix) 100 mls @ 100 mls/hr IV ONETIME ONE Stop: 06/05/17 08:59 Last Admin: 06/05/17 09:27 Dose: Not Given Potassium Chloride 10 meq/ (Premix) 100 mls @ 100 mls/hr IV Q1H [facility] Stop: 06/05/17 11:44 Last Admin: 06/05/17 14:10 Dose: Not Given Potassium Chloride 10 meq/ (Premix) 100 mls @ 100 mls/hr IV Q1H [facility] Stop: 06/05/17 13:14 Last Admin: 06/05/17 15:05 Dose: 100 mls/hr Fluconazole/Sodium Chloride (200 mg/ Premix) 100 mls @ 100 mls/hr IV ONETIME ONE Stop: 06/05/17 14:59 Last Admin: 06/05/17 16:08 Dose: Not Given Fluconazole/Sodium Chloride (200 mg/ Premix) 100 mls @ 100 mls/hr IV ONETIME ONE Stop: 06/05/17 16:59 Last Admin: 06/05/17 16:40 Dose: 100 mls/hr Potassium Chloride 10 meq/ (Premix) 100 mls @ 100 mls/hr IV Q1H [facility] Stop: 06/06/17 14:14 Last Admin: 06/06/17 13:29 Dose: Not Given Potassium Chloride 10 meq/ (Premix) 100 mls @ 100 mls/hr IV Q1H [facility] Stop: 06/06/17 15:59 Last Admin: 06/06/17 19:52 Dose: 100 mls/hr Cefepime HCl 2 gm/ Premix 50 mls @ 100 mls/hr IV Q12H [facility] Stop: 06/09/17 12:01 Last Admin: 06/09/17 11:21 Dose: 100 mls/hr Potassium Chloride 10 meq/ (Premix) 100 mls @ 100 mls/hr IV Q1H [facility] Stop: 06/08/17 18:59 Last Admin: 06/08/17 19:32 Dose: 100 mls/hr Influenza Virus Vaccine (Pharmacy To Dose - Influenza Vaccine) 1 each IM ONETIME ONE Stop: 06/04/17 15:09 Influenza Virus Vaccine (Flulaval Quad 8020-7736) 60 mcg IM .ONCE ONE Stop: 06/04/17 15:16 Lorazepam (Ativan) 0.5 mg PO TID NAEL Lorazepam (Ativan) 0.5 mg IVPUSH Q8H [facility] Last Admin: 06/05/17 03:00 Dose: 0.5 mg Lorazepam (Ativan) 0.25 mg IVPUSH Q8H NAEL Lorazepam (Ativan) 0.25 mg IVPUSH Q8H [facility] Last Admin: 06/06/17 02:51 Dose: Not Given Lorazepam (Ativan) 0.25 mg IVPUSH Q6H PRN PRN Reason: restlessness Last Admin: 06/06/17 10:15 Dose: 0.25 mg Magnesium Sulfate (Pharmacy To Dose - Magnesium Replacement) 1 dose .XX ASDIRECTED [facility] Metoclopramide HCl (Reglan) 5 mg IVPUSH Q8H [facility] Last Admin: 06/07/17 09:44 Dose: 5 mg Miscellaneous Information (Remove Patch) 1 ea TRDERM Q72H [facility] Ondansetron HCl (Zofran) 4 mg IVPUSH ONETIME ONE Stop: 06/04/17 10:30 Last Admin: 06/04/17 10:47 Dose: 4 mg Pantoprazole Sodium (Protonix Iv) 40 mg IVPUSH Q12H [facility] Last Admin: 06/08/17 05:53 Dose: 40 mg Pneumococcal Polyvalent Vaccine (Pneumovax 23) 0.5 ml IM .ONCE ONE Stop: 06/04/17 15:09 Potassium Chloride (Pharmacy To Dose - Potassium Replacement) 1 dose .XX ASDIRECTED [facility] Potassium Chloride (Klor-Con M20) 40 meq PO ONETIME ONE Stop: 06/05/17 08:01 - Exam Quality Assessment: DVT Prophylaxis, Skin Breakdown General: Alert, Oriented, Cooperative, No Acute Distress HEENT: Pupils Equal, Pupils Reactive, EOMI Neck: Trachea Midline, No JVD Lungs: Normal Respiratory Effort Cardiovascular: Regular Rate, Regular Rhythm GI/Abdominal Exam: Soft, Non-Tender, No Distention, Other (improved BS) (Female) Exam: Deferred Back Exam: Normal Inspection Extremities: Normal Inspection Skin: Warm Neurological: No New Focal Deficit Psy/Mental Status: Alert, Normal Affect, Normal Mood - Problem List Review Problem List Initiated/Reviewed/Updated: Yes - My Orders Last 24 Hours: My Active Orders 06/08/17 21:00 Famotidine [Pepcid] 20 mg IVPUSH BID 06/09/17 12:45 Meropenem [Merrem] 500 mg Sodium Chloride 0.9% [Normal Saline] 100 ml IV Q8H 06/09/17 Breakfast Clear Liquid Diet [DIET] 06/10/17 05:00 BMP [BASIC METABOLIC PANEL,BMP] [CHEM] DAILY CBC WITH AUTO DIFF [HEME] DAILY CRP [C-REACTIVE PROTEIN] [CHEM] DAILY 06/11/17 05:00 BMP [BASIC METABOLIC PANEL,BMP] [CHEM] DAILY CBC WITH AUTO DIFF [HEME] DAILY - Plan Plan:: I/P: Acute: SBO -Repeat abd film, SBO improving -Hx/o SOB due to adhesions - hospitalized last January -CRP 13.0-->14.3-->9.2-->6.3 -PRN antiemetics -NPO -DC today, start clear liquids -D5NS for fluids -Reglan IV Q8H Hypokalemia--resolved -Replete and monitor daily labs Anemia -Hgb 10.1 on admit-->8.8-->9.5; stable Candidal dermatitis vs hidradenitis suppurativa vs. bacterial infection -Lesions noted scattered over body but especially in groin and under breasts -Patient avoids bathing/showers -WBC 12.87; CRP 13.0 -Nystatin powder -Diflucan IV -Florastor -Culture wound - with GNR present-Meropenem---for 48 hours Resolved: Dehydration--improved to resolved Hyponatremia--resolved Fall in bathroom 06/05/17 morning, striking head and left elbow----no further dizziness or concerning symptoms -Head CT -- negative for acute findings -Wound care/bandaid to elbow -Decrease ativan dose from 0.5 to 0.25mg IV Q8H -PT/OT -Fall precautions/up with assist at all times Chronic: HLD HTN - stable, home and PRN BP meds as needed GERD - Protonix IV Seizures- home meds Anxiety - ativan IVP for now, once able to take PO back to home dose Schizophrenia - home meds Hypothyroidism - Check TSH--normal at 1.295 Anemia - as above Plan: Clear liquids PT/OT CM/SW for discharge planning---LOS likely 2-3 more days pending progress/ resolution of SBO PT/OT Routine AM labs Home medications Other orders as indicated above. Code status: Full code. PCP: Dr. Bryson at . Psychiatrist: Dr. Greenberg. [facility] also assists her. LOS>96 hours with slow improvement, resume diet today, advance as tolerated.
[2017-06-09] MEDS: Meropenem 500 MG in Sodium Chloride 0.9% 100 ML IV SCH ×2 (13:50→18:02)
[2017-06-09] MEDS: Metoclopramide 10 MG Tab PO SCH ×2 (18:03→21:12)
[2017-06-09] MEDS ORDERED: Potassium Chloride 10 MEQ in Premix Bag 1 BAG IV SCH (20:00)
[2017-06-09] MEDS: Latanoprost 0.005% Ophth Soln 2.5 ML Bottle EYEBOTH SCH (21:14)
[2017-06-09] MEDS: Sodium Chloride 0.45% with KCl 1,000 ML IV SCH (21:57)
[2017-06-10] MEDS: LORazepam 2 MG/ML SDV IVPUSH SCH ×3 (02:41→17:23)
[2017-06-10] MEDS: Meropenem 500 MG in Sodium Chloride 0.9% 100 ML IV SCH ×4 (02:44→20:06)
[2017-06-10] MEDS: Nystatin Topical Powder 15 GM Bottle TOP SCH ×6 (02:45→21:28)
[2017-06-10] MEDS: Levothyroxine 88 MCG Tab PO SCH (06:08)
[2017-06-10] MEDS: Metoclopramide 10 MG Tab PO SCH ×4 (06:08→21:26)
[2017-06-10] MEDS: Sodium Chloride 0.45% with KCl 1,000 ML IV SCH ×2 (06:15→21:26)
[2017-06-10] MEDS ORDERED: Potassium Chloride 20 MEQ Tab.ER PO SCH (09:00)
[2017-06-10] MEDS: Famotidine 20 MG/2 ML SDV IVPUSH SCH ×2 (09:50→21:28)
[2017-06-10] MEDS: Saccharomyces Boulardii (Probiotic) 250 MG Cap PO SCH ×2 (09:51→21:26)
[2017-06-10] MEDS: amLODIPine 2.5 MG Tab PO SCH (09:51)
[2017-06-10] MEDS: Atenolol 25 MG Tab PO SCH (09:51)
[2017-06-10] MEDS: Acetaminophen 325 MG Tab PO PRN (09:52)
[2017-06-10] MEDS: Enoxaparin 40 MG/0.4 ML Syringe SUBCUT SCH (09:52)
[2017-06-10] MEDS: Potassium Chloride 20 MEQ Tab.ER PO SCH (09:52)
[2017-06-10] MEDS: cloZAPine 100 MG Tab PO SCH ×3 (10:03→21:27)
--- NOTE | 2017-06-10 12:11 | CR ---
Abdomen: Supine and upright views of the abdomen were obtained. Comparison: Prior abdominal x-ray of 06/09/17. Slight prominence of air-filled small bowel remain. There is a loop of air-filled bowel showing air-fluid level which is most likely colon. Small bowel gas appears less prominent than on previous study. Other portions of the abdominal x-ray appear stable from previous study. Impression: 1. Prominent air-filled bowel showing air-fluid levels most likely within the colon. 2. Small bowel gas appears slightly less prominent than on previous study. Diagnostic code #3
--- NOTE | 2017-06-10 15:29 | PCM.PN ---
- General Info Date of Service: 06/10/17 Admission Dx/Problem (Free Text): Admission Diagnosis/Problem Admission Diagnosis/Problem SBO Beckie is seen this afternoon. States abdomen is "not any better at all". She is however moving her bowels now and tolerating clear liquid diet thus far. She is requesting diet to be advanced. Otherwise she has no other complaints/concerns. Mental Health c iron worker is in room and updated on progress by Beckie and myself. Functional Status: Reports: Pain Controlled, Tolerating Diet (clear liquid), Ambulating (up to BR, refusing to ambulate this afternoon.), Urinating, Incentive Spirometry - Review of Systems General: Reports: No Symptoms, Other (strength in general is improved) HEENT: Reports: No Symptoms Pulmonary: Reports: No Symptoms Cardiovascular: Reports: No Symptoms Gastrointestinal: Reports: Abdominal Pain. Denies: Diarrhea, Nausea, Vomiting Musculoskeletal: Reports: No Symptoms Psychiatric: Reports: No Symptoms, Other (pleasant and answers questions appropriately today). Denies: Anxiety - Patient Data Vitals - Most Recent: Last Vital Signs Temp 97.3 F 06/10/17 08:10 Pulse 81 06/10/17 08:10 Resp 16 06/10/17 08:10 BP 134/56 L 06/10/17 08:10 Pulse Ox 95 06/10/17 08:10 Weight - Most Recent: 151 lb 3.2 oz I&O - Last 24 Hours: Intake & Output 06/10/17 06/10/17 06/10/17 06:59 14:59 22:59 Intake Total 950 960 Balance 950 960 Lab Results Last 24 Hours: Laboratory Results - last 24 hr 06/10/17 06/10/17 Range/Units 05:50 05:50 WBC 8.09 (3.98-10.04) K/mm3 RBC 3.24 L (3.98-5.22) M/mm3 Hgb 8.6 L (11.2-15.7) gm/L Hct 26.9 L (34.1-44.9) % MCV 83.0 (79.4-94.8) fl MCH 26.5 (25.6-32.2) pg MCHC 32.0 L (32.2-35.5) g/dl RDW Std Deviation 43.9 (36.4-46.3) fL Plt Count 380 H (182-369) K/mm3 MPV 8.7 L (9.4-12.3) fl Neut % (Auto) 62.1 (34.0-71.1) % Lymph % (Auto) 18.3 L (19.3-51.7) % Motley % (Auto) 14.7 H (4.7-12.5) % Eos % (Auto) 3.5 (0.7-5.8) Baso % (Auto) 0.2 (0.1-1.2) % Neut # (Auto) 5.02 (1.56-6.13) K/mm3 Lymph # (Auto) 1.48 (1.18-3.74) K/mm3 Motley # (Auto) 1.19 H (0.24-0.36) K/mm3 Eos # (Auto) 0.28 (0.04-0.36) K/mm3 Baso # (Auto) 0.02 (0.01-0.08) K/mm3 Sodium 137 (136-145) mEq/L Potassium 3.0 L (3.5-5.1) mEq/L Chloride 103 (98-107) mEq/L Carbon Dioxide 27 (21-32) mEq/L Anion Gap 10.0 (5-15) BUN 1 L (7-18) mg/dL Creatinine 0.7 (0.55-1.02) mg/dL Est Cr Clr Drug Dosing 74.98 mL/min Estimated GFR (MDRD) > 60 (>60) mL/min BUN/Creatinine Ratio 1.4 L (14-18) Glucose 89 (80-115) mg/dL Calcium 8.2 L (8.5-10.1) mg/dL C-Reactive Protein 1.4 H* (<1.0) mg/dL Med Orders - Current: Current Medications Acetaminophen (Tylenol) 650 mg PO Q4H PRN PRN Reason: Pain (Mild 1-3)/fever Last Admin: 06/10/17 09:52 Dose: 650 mg Albuterol/Ipratropium (Duoneb 3.0-0.5 Mg/3 Ml) 3 ml NEB Q4H PRN PRN Reason: Shortness Of Breath/wheezing Amlodipine Besylate (Norvasc) 2.5 mg PO DAILY [facility] Last Admin: 06/10/17 09:51 Dose: 2.5 mg Atenolol (Tenormin) 25 mg PO DAILY [facility] Last Admin: 06/10/17 09:51 Dose: 25 mg Bisacodyl (Dulcolax) 5 mg PO DAILY PRN PRN Reason: Constipation Last Admin: 06/06/17 06:35 Dose: 5 mg Clozapine (Clozapine) 350 mg PO BEDTIME [facility] Last Admin: 06/09/17 21:13 Dose: 350 mg Clozapine (Clozapine) 200 mg PO 0700,1700 [facility] Last Admin: 06/10/17 10:03 Dose: 200 mg Docusate Sodium (Colace) 100 mg PO BID PRN PRN Reason: Constipation Enoxaparin Sodium (Lovenox) 40 mg SUBCUT DAILY [facility] Last Admin: 06/10/17 09:52 Dose: 40 mg Famotidine (Pepcid) 20 mg IVPUSH BID [facility] Last Admin: 06/10/17 09:50 Dose: 20 mg Meropenem 500 mg/ Sodium (Chloride) 100 mls @ 200 mls/hr IV Q6H [facility] Stop: 06/11/17 13:01 Last Admin: 06/10/17 14:04 Dose: 200 mls/hr Potassium Chloride/Sodium Chloride (1/2 Ns With 20 Meq Kcl) 1,000 mls @ 75 mls/ hr IV ASDIRECTED [facility] Last Admin: 06/10/17 06:15 Dose: 75 mls/hr Potassium Chloride 10 meq/ (Premix) 100 mls @ 100 mls/hr IV Q1H [facility] Stop: 06/10/17 19:29 Latanoprost (Xalatan 0.005% Ophth Soln) 0 ml EYEBOTH BEDTIME [facility] Last Admin: 06/09/17 21:14 Dose: 1 drop Levothyroxine Sodium (Synthroid) 88 mcg PO ACBRK [facility] Last Admin: 06/10/17 06:08 Dose: 88 mcg Lorazepam (Ativan) 0.25 mg IVPUSH Q8H [facility] Last Admin: 06/10/17 09:51 Dose: 0.25 mg Metoclopramide HCl (Reglan) 5 mg PO QIDACANDBED [facility] Last Admin: 06/10/17 10:03 Dose: 5 mg Miscellaneous Information (Remove Patch) 1 ea TRDERM Q72H [facility] Last Admin: 06/07/17 16:42 Dose: 1 ea Nystatin (Nystop) 2 gm TOP TID [facility] Stop: 06/18/17 21:01 Last Admin: 06/10/17 14:04 Dose: Not Given Ondansetron HCl (Zofran Odt) 4 mg PO Q6H PRN PRN Reason: nausea, able to take PO Ondansetron HCl (Zofran) 4 mg IV Q4H PRN PRN Reason: Nausea/Vomiting Potassium Chloride (Klor-Con M20) 20 meq PO DAILY [facility] Stop: 06/11/17 09:01 Last Admin: 06/10/17 09:52 Dose: 20 meq Saccharomyces Boulardii (Florastor) 250 mg PO BID [facility] Last Admin: 06/10/17 09:51 Dose: 250 mg Scopolamine (Scopolamine) 1 each TRDERM Q72H PRN PRN Reason: Nausea/Vomiting Last Admin: 06/04/17 15:27 Dose: 1 each Senna/Docusate Sodium (Senna Plus) 1 tab PO BID PRN PRN Reason: Constipation Last Admin: 06/06/17 06:35 Dose: 1 tab Discontinued Medications Clozapine (Clozapine) 350 mg PO BEDTIME [facility] Last Admin: 06/05/17 16:08 Dose: Not Given Clozapine (Clozapine) 200 mg PO 0700,1700 [facility] Last Admin: 06/05/17 16:07 Dose: Not Given Clozapine (Clozapine) 350 mg PO ONETIME ONE Stop: 06/04/17 23:31 Last Admin: 06/04/17 23:35 Dose: 350 mg Furosemide (Lasix) 10 mg IVPUSH NOW ONE Stop: 06/07/17 07:31 Last Admin: 06/07/17 10:17 Dose: Not Given Furosemide (Lasix) 10 mg IVPUSH NOW ONE Stop: 06/07/17 10:16 Last Admin: 06/07/17 10:16 Dose: 10 mg Sodium Chloride (Normal Saline) 1,000 mls @ 999 mls/hr IV ONETIME ONE Stop: 06/04/17 11:29 Last Admin: 06/04/17 10:49 Dose: 999 mls/hr Sodium Chloride (Normal Saline) 1,000 mls @ 999 mls/hr IV ONETIME ONE Stop: 06/04/17 14:22 Last Admin: 06/04/17 13:28 Dose: 999 mls/hr Sodium Chloride (Normal Saline) 1,000 mls @ 75 mls/hr IV ASDIRECTED [facility] Last Admin: 06/04/17 15:45 Dose: 75 mls/hr Premix 1 bag/ Magnesium (Sulfate) 50 mls @ 50 mls/hr IV ONETIME ONE Stop: 06/04/17 17:14 Last Admin: 06/04/17 17:26 Dose: 50 mls/hr Dextrose/Sodium Chloride (Dextrose 5%-Normal Saline) 1,000 mls @ 100 mls/hr IV ASDIRECTED [facility] Last Admin: 06/09/17 02:08 Dose: 100 mls/hr Fluconazole/Sodium Chloride (200 mg/ Premix) 100 mls @ 100 mls/hr IV ONETIME ONE Stop: 06/05/17 08:59 Last Admin: 06/05/17 09:27 Dose: Not Given Potassium Chloride 10 meq/ (Premix) 100 mls @ 100 mls/hr IV Q1H [facility] Stop: 06/05/17 11:44 Last Admin: 06/05/17 14:10 Dose: Not Given Potassium Chloride 10 meq/ (Premix) 100 mls @ 100 mls/hr IV Q1H [facility] Stop: 06/05/17 13:14 Last Admin: 06/05/17 15:05 Dose: 100 mls/hr Fluconazole/Sodium Chloride (200 mg/ Premix) 100 mls @ 100 mls/hr IV ONETIME ONE Stop: 06/05/17 14:59 Last Admin: 06/05/17 16:08 Dose: Not Given Fluconazole/Sodium Chloride (200 mg/ Premix) 100 mls @ 100 mls/hr IV ONETIME ONE Stop: 06/05/17 16:59 Last Admin: 06/05/17 16:40 Dose: 100 mls/hr Potassium Chloride 10 meq/ (Premix) 100 mls @ 100 mls/hr IV Q1H [facility] Stop: 06/06/17 14:14 Last Admin: 06/06/17 13:29 Dose: Not Given Potassium Chloride 10 meq/ (Premix) 100 mls @ 100 mls/hr IV Q1H [facility] Stop: 06/06/17 15:59 Last Admin: 06/06/17 19:52 Dose: 100 mls/hr Cefepime HCl 2 gm/ Premix 50 mls @ 100 mls/hr IV Q12H [facility] Stop: 06/09/17 12:01 Last Admin: 06/09/17 11:21 Dose: 100 mls/hr Potassium Chloride 10 meq/ (Premix) 100 mls @ 100 mls/hr IV Q1H [facility] Stop: 06/08/17 18:59 Last Admin: 06/08/17 19:32 Dose: 100 mls/hr Potassium Chloride 10 meq/ (Premix) 100 mls @ 100 mls/hr IV Q1H [facility] Stop: 06/09/17 22:59 Influenza Virus Vaccine (Pharmacy To Dose - Influenza Vaccine) 1 each IM ONETIME ONE Stop: 06/04/17 15:09 Influenza Virus Vaccine (Flulaval Quad 4421-1318) 60 mcg IM .ONCE ONE Stop: 06/04/17 15:16 Lorazepam (Ativan) 0.5 mg PO TID [facility] Lorazepam (Ativan) 0.5 mg IVPUSH Q8H [facility] Last Admin: 06/05/17 03:00 Dose: 0.5 mg Lorazepam (Ativan) 0.25 mg IVPUSH Q8H [facility] Lorazepam (Ativan) 0.25 mg IVPUSH Q8H [facility] Last Admin: 06/06/17 02:51 Dose: Not Given Lorazepam (Ativan) 0.25 mg IVPUSH Q6H PRN PRN Reason: restlessness Last Admin: 06/06/17 10:15 Dose: 0.25 mg Magnesium Sulfate (Pharmacy To Dose - Magnesium Replacement) 1 dose .XX ASDIRECTED [facility] Metoclopramide HCl (Reglan) 5 mg IVPUSH Q8H [facility] Last Admin: 06/07/17 09:44 Dose: 5 mg Miscellaneous Information (Remove Patch) 1 ea TRDERM Q72H [facility] Ondansetron HCl (Zofran) 4 mg IVPUSH ONETIME ONE Stop: 06/04/17 10:30 Last Admin: 06/04/17 10:47 Dose: 4 mg Pantoprazole Sodium (Protonix Iv) 40 mg IVPUSH Q12H [facility] Last Admin: 06/08/17 05:53 Dose: 40 mg Pneumococcal Polyvalent Vaccine (Pneumovax 23) 0.5 ml IM .ONCE ONE Stop: 06/04/17 15:09 Potassium Chloride (Pharmacy To Dose - Potassium Replacement) 1 dose .XX ASDIRECTED [facility] Potassium Chloride (Klor-Con M20) 40 meq PO ONETIME ONE Stop: 06/05/17 08:01 Potassium Chloride (Klor-Con M20) 20 meq PO DAILY NAEL - Exam Quality Assessment: DVT Prophylaxis General: Alert, Cooperative, No Acute Distress HEENT: Pupils Equal, EOMI, Mucous Membr. Moist/[place] Neck: Supple Lungs: Clear to Auscultation, Normal Respiratory Effort, Decreased Breath Sounds (bases) Cardiovascular: Regular Rate, Regular Rhythm GI/Abdominal Exam: Normal Bowel Sounds (normoactive today), Soft, Tender ( diffuse, mild), Other (still tympanic but improved from my last exam on Saturday) . No: Distended, Guarding, Rigid, Rebound (Female) Exam: Deferred Extremities: Normal Inspection, No Pedal Edema, Normal Capillary Refill Neurological: Normal Speech, Normal Tone, Strength Equal Bilateral Psy/Mental Status: Alert, Other (pleasant and appropriate). No: Anxious - Problem List & Annotations (1) SBO (small bowel obstruction) SNOMED Code(s): 987180779 Code(s): K56.69 - OTHER INTESTINAL OBSTRUCTION * DO NOT USE * Status: Acute Priority: High Current Visit: Yes (2) Nausea and vomiting SNOMED Code(s): 91619849 Code(s): R11.2 - NAUSEA WITH VOMITING, UNSPECIFIED Status: Resolved Priority: High Current Visit: Yes Qualifiers: Vomiting type: unspecified (3) Fall SNOMED Code(s): 3498469 Code(s): W19.XXXA - UNSPECIFIED FALL, INITIAL ENCOUNTER Status: Resolved Priority: High Current Visit: Yes Qualifiers: Encounter type: initial encounter Qualified Code(s): W19.XXXA - Unspecified fall, initial encounter (4) Acute kidney injury SNOMED Code(s): 81788880 Code(s): N17.9 - ACUTE KIDNEY FAILURE, UNSPECIFIED Status: Resolved Priority: High Current Visit: Yes (5) Hypokalemia SNOMED Code(s): 53537794 Code(s): E87.6 - HYPOKALEMIA Status: Acute Priority: High Current Visit : Yes (6) Dehydration SNOMED Code(s): 07770255 Code(s): E86.0 - DEHYDRATION Status: Resolved Priority: High Current Visit: Yes (7) Candidal dermatitis SNOMED Code(s): 34450742 Code(s): B37.2 - CANDIDIASIS OF SKIN AND NAIL Status: Acute Priority: High Current Visit: Yes (8) Leukocytosis SNOMED Code(s): 280061363 Code(s): D72.829 - ELEVATED WHITE BLOOD CELL COUNT, UNSPECIFIED Status: Resolved Priority: Medium Current Visit: Yes Qualifiers: Leukocytosis type: unspecified Qualified Code(s): D72.829 - Elevated white blood cell count, unspecified (9) Schizophrenia SNOMED Code(s): 26015167 Code(s): F20.9 - SCHIZOPHRENIA, UNSPECIFIED Status: Chronic Priority: Medium Current Visit: Yes Qualifiers: Schizophrenia type: paranoid schizophrenia Qualified Code(s): F20.0 - Paranoid schizophrenia - Problem List Review Problem List Initiated/Reviewed/Updated: Yes - My Orders Last 24 Hours: My Active Orders 06/10/17 15:30 Potassium Chloride [KCl 10 MEQ in Water 100 ML] 10 meq Premix Bag 1 bag IV Q1H - Plan Plan:: I/P: Acute: SBO -serial abd films, SBO improving---improvements on todays xray -Hx/o SOB due to adhesions - hospitalized last January -CRP 13.0-->14.3-->9.2-->6.3------>1.4 -PRN antiemetics -Tolerating clear liquids -General Surgery, Dr. Franks consulted; she has Rec'd enemas per Dr. Franks as she refused to have NG reinserted last week. Hypokalemia -Replete and monitor daily labs -Follow mag Anemia -Hgb 10.1 on admit-->8.8-->9.5----->8.6; stable -B12, folic acid WNL and iron is low--recommend iron supplementation after resolution of SBO Candidal dermatitis -Lesions noted scattered over body but especially in groin and under breasts ; Patient avoids bathing/showers -Nystatin powder; Diflucan IV x 1 dose -Florastor -Culture wound - with GNR present-Meropenem---for 48 hours then will transition to PO cephalosporin Resolved: Dehydration--improved to resolved Hyponatremia--resolved Fall in bathroom 06/05/17 morning, striking head and left elbow----no further dizziness or concerning symptoms -Head CT -- negative for acute findings -Wound care/bandaid to elbow -Decrease ativan dose from 0.5 to 0.25mg IV Q8H -PT/OT -Fall precautions/up with assist at all times Chronic: HLD HTN - stable, home and PRN BP meds as needed GERD - Protonix IV Seizures- home meds Anxiety - ativan IVP for now, once able to take PO back to home dose Schizophrenia - home meds Hypothyroidism - Check TSH--normal at 1.295 Anemia - as above Other: PT/OT CM/SW for discharge planning---LOS pending progress/resolution of SBO--very slow PT/OT Routine AM labs Home medications Other orders as indicated above. Code status: Full code. PCP: Dr. Bryson at [facility]. Psychiatrist: Dr. Greenberg. [facility] also assists her. LOS>96 hours with slow improvement, advancement of diet, cont with serial abd films until resolved.
[2017-06-10] MEDS: Scopolamine 1 MG Transdermal Patch TRDERM PRN (15:46)
[2017-06-10] MEDS: Potassium Chloride 10 MEQ in Premix Bag 1 BAG IV SCH ×4 (15:54→19:05)
[2017-06-10] MEDS: Latanoprost 0.005% Ophth Soln 2.5 ML Bottle EYEBOTH SCH (21:28)
[2017-06-11] MEDS: Meropenem 500 MG in Sodium Chloride 0.9% 100 ML IV SCH ×3 (01:05→12:47)
[2017-06-11] MEDS: LORazepam 2 MG/ML SDV IVPUSH SCH ×3 (01:08→17:40)
[2017-06-11] MEDS: Levothyroxine 88 MCG Tab PO SCH (06:38)
[2017-06-11] MEDS: Metoclopramide 10 MG Tab PO SCH ×4 (06:38→21:04)
[2017-06-11] MEDS: cloZAPine 100 MG Tab PO SCH ×3 (06:39→21:04)
[2017-06-11] MEDS: Saccharomyces Boulardii (Probiotic) 250 MG Cap PO SCH ×2 (09:51→21:07)
[2017-06-11] MEDS: Atenolol 25 MG Tab PO SCH (09:52)
[2017-06-11] MEDS: Famotidine 20 MG/2 ML SDV IVPUSH SCH ×2 (09:52→21:07)
[2017-06-11] MEDS: amLODIPine 2.5 MG Tab PO SCH (09:53)
[2017-06-11] MEDS: Potassium Chloride 20 MEQ Tab.ER PO SCH (09:54)
[2017-06-11] MEDS: Nystatin Topical Powder 15 GM Bottle TOP SCH ×3 (09:55→21:07)
[2017-06-11] MEDS: Enoxaparin 40 MG/0.4 ML Syringe SUBCUT SCH (09:56)
[2017-06-11] MEDS: Sodium Chloride 0.45% with KCl 1,000 ML IV SCH (12:46)
--- NOTE | 2017-06-11 18:32 | PCM.PN ---
- General Info Date of Service: 06/11/17 Functional Status: Reports: Pain Controlled, Tolerating Diet, Ambulating, Urinating - Review of Systems General: Reports: Weakness HEENT: Reports: No Symptoms Pulmonary: Reports: No Symptoms Cardiovascular: Reports: Orthopnea Gastrointestinal: Reports: Flatus Genitourinary: Reports: No Symptoms Musculoskeletal: Reports: No Symptoms Skin: Reports: No Symptoms Neurological: Reports: No Symptoms Psychiatric: Reports: No Symptoms - Patient Data Vitals - Most Recent: Last Vital Signs Temp 36.6 C 06/11/17 15:16 Pulse 81 06/11/17 15:16 Resp 18 06/11/17 15:16 BP 124/75 06/11/17 15:16 Pulse Ox 99 06/11/17 15:16 Weight - Most Recent: 68.719 kg I&O - Last 24 Hours: Intake & Output 06/11/17 06/11/17 06/11/17 06:59 14:59 22:59 Intake Total 1845 1080 2348 Balance 1845 1080 2348 Lab Results Last 24 Hours: Laboratory Results - last 24 hr 06/11/17 06/11/17 Range/Units 05:56 05:56 WBC 8.66 (3.98-10.04) K/mm3 RBC 3.36 L (3.98-5.22) M/mm3 Hgb 9.1 L (11.2-15.7) gm/L Hct 28.2 L (34.1-44.9) % MCV 83.9 (79.4-94.8) fl MCH 27.1 (25.6-32.2) pg MCHC 32.3 (32.2-35.5) g/dl RDW Std Deviation 45.5 (36.4-46.3) fL Plt Count 345 (182-369) K/mm3 MPV 9.2 L (9.4-12.3) fl Neut % (Auto) 59.0 (34.0-71.1) % Lymph % (Auto) 19.6 (19.3-51.7) % [place] % (Auto) 13.2 H (4.7-12.5) % Eos % (Auto) 6.1 H (0.7-5.8) Baso % (Auto) 0.3 (0.1-1.2) % Neut # (Auto) 5.10 (1.56-6.13) K/mm3 Lymph # (Auto) 1.70 (1.18-3.74) K/mm3 [place] # (Auto) 1.14 H (0.24-0.36) K/mm3 Eos # (Auto) 0.53 H (0.04-0.36) K/mm3 Baso # (Auto) 0.03 (0.01-0.08) K/mm3 Manual Slide Review Normal smear Sodium 134 L (136-145) mEq/L Potassium 3.9 (3.5-5.1) mEq/L Chloride 102 (98-107) mEq/L Carbon Dioxide 23 (21-32) mEq/L Anion Gap 12.9 (5-15) BUN 1 L (7-18) mg/dL Creatinine 0.8 (0.55-1.02) mg/dL Est Cr Clr Drug Dosing 65.61 mL/min Estimated GFR (MDRD) > 60 (>60) mL/min BUN/Creatinine Ratio 1.3 L (14-18) Glucose 86 (80-115) mg/dL Calcium 8.3 L (8.5-10.1) mg/dL Med Orders - Current: Current Medications Acetaminophen (Tylenol) 650 mg PO Q4H PRN PRN Reason: Pain (Mild 1-3)/fever Last Admin: 06/10/17 09:52 Dose: 650 mg Albuterol/Ipratropium (Duoneb 3.0-0.5 Mg/3 Ml) 3 ml NEB Q4H PRN PRN Reason: Shortness Of Breath/wheezing Amlodipine Besylate (Norvasc) 2.5 mg PO DAILY [facility] Last Admin: 06/11/17 09:53 Dose: 2.5 mg Atenolol (Tenormin) 25 mg PO DAILY [facility] Last Admin: 06/11/17 09:52 Dose: 25 mg Bisacodyl (Dulcolax) 5 mg PO DAILY PRN PRN Reason: Constipation Last Admin: 06/06/17 06:35 Dose: 5 mg Clozapine (Clozapine) 350 mg PO BEDTIME [facility] Last Admin: 06/10/17 21:27 Dose: 350 mg Clozapine (Clozapine) 200 mg PO 0700,1700 [facility] Last Admin: 06/11/17 17:48 Dose: 200 mg Docusate Sodium (Colace) 100 mg PO BID PRN PRN Reason: Constipation Enoxaparin Sodium (Lovenox) 40 mg SUBCUT DAILY [facility] Last Admin: 06/11/17 09:56 Dose: 40 mg Famotidine (Pepcid) 20 mg IVPUSH BID [facility] Last Admin: 06/11/17 09:52 Dose: 20 mg Potassium Chloride/Sodium Chloride (1/2 Ns With 20 Meq Kcl) 1,000 mls @ 75 mls/ hr IV ASDIRECTED [facility] Last Admin: 06/11/17 12:46 Dose: 75 mls/hr Latanoprost (Xalatan 0.005% Ophth Soln) 0 ml EYEBOTH BEDTIME [facility] Last Admin: 06/10/17 21:28 Dose: 1 drop Levothyroxine Sodium (Synthroid) 88 mcg PO ACBRK [facility] Last Admin: 06/11/17 06:38 Dose: 88 mcg Lorazepam (Ativan) 0.25 mg IVPUSH Q8H [facility] Last Admin: 06/11/17 17:40 Dose: 0.25 mg Metoclopramide HCl (Reglan) 5 mg PO QIDACANDBED [facility] Last Admin: 06/11/17 17:41 Dose: 5 mg Miscellaneous Information (Remove Patch) 1 ea TRDERM Q72H [facility] Last Admin: 06/10/17 15:47 Dose: Not Given Nystatin (Nystop) 2 gm TOP TID [facility] Stop: 06/18/17 21:01 Last Admin: 06/11/17 14:34 Dose: 1 applic Ondansetron HCl (Zofran Odt) 4 mg PO Q6H PRN PRN Reason: nausea, able to take PO Ondansetron HCl (Zofran) 4 mg IV Q4H PRN PRN Reason: Nausea/Vomiting Saccharomyces Boulardii (Florastor) 250 mg PO BID [facility] Last Admin: 06/11/17 09:51 Dose: 250 mg Scopolamine (Scopolamine) 1 each TRDERM Q72H PRN PRN Reason: Nausea/Vomiting Last Admin: 06/10/17 15:46 Dose: 1 each Senna/Docusate Sodium (Senna Plus) 1 tab PO BID PRN PRN Reason: Constipation Last Admin: 06/06/17 06:35 Dose: 1 tab Discontinued Medications Clozapine (Clozapine) 350 mg PO BEDTIME [facility] Last Admin: 06/05/17 16:08 Dose: Not Given Clozapine (Clozapine) 200 mg PO 0700,1700 [facility] Last Admin: 06/05/17 16:07 Dose: Not Given Clozapine (Clozapine) 350 mg PO ONETIME ONE Stop: 06/04/17 23:31 Last Admin: 06/04/17 23:35 Dose: 350 mg Furosemide (Lasix) 10 mg IVPUSH NOW ONE Stop: 06/07/17 07:31 Last Admin: 06/07/17 10:17 Dose: Not Given Furosemide (Lasix) 10 mg IVPUSH NOW ONE Stop: 06/07/17 10:16 Last Admin: 06/07/17 10:16 Dose: 10 mg Sodium Chloride (Normal Saline) 1,000 mls @ 999 mls/hr IV ONETIME ONE Stop: 06/04/17 11:29 Last Admin: 06/04/17 10:49 Dose: 999 mls/hr Sodium Chloride (Normal Saline) 1,000 mls @ 999 mls/hr IV ONETIME ONE Stop: 06/04/17 14:22 Last Admin: 06/04/17 13:28 Dose: 999 mls/hr Sodium Chloride (Normal Saline) 1,000 mls @ 75 mls/hr IV ASDIRECTED [facility] Last Admin: 06/04/17 15:45 Dose: 75 mls/hr Premix 1 bag/ Magnesium (Sulfate) 50 mls @ 50 mls/hr IV ONETIME ONE Stop: 06/04/17 17:14 Last Admin: 06/04/17 17:26 Dose: 50 mls/hr Dextrose/Sodium Chloride (Dextrose 5%-Normal Saline) 1,000 mls @ 100 mls/hr IV ASDIRECTED [facility] Last Admin: 06/09/17 02:08 Dose: 100 mls/hr Fluconazole/Sodium Chloride (200 mg/ Premix) 100 mls @ 100 mls/hr IV ONETIME ONE Stop: 06/05/17 08:59 Last Admin: 06/05/17 09:27 Dose: Not Given Potassium Chloride 10 meq/ (Premix) 100 mls @ 100 mls/hr IV Q1H [facility] Stop: 06/05/17 11:44 Last Admin: 06/05/17 14:10 Dose: Not Given Potassium Chloride 10 meq/ (Premix) 100 mls @ 100 mls/hr IV Q1H [facility] Stop: 06/05/17 13:14 Last Admin: 06/05/17 15:05 Dose: 100 mls/hr Fluconazole/Sodium Chloride (200 mg/ Premix) 100 mls @ 100 mls/hr IV ONETIME ONE Stop: 06/05/17 14:59 Last Admin: 06/05/17 16:08 Dose: Not Given Fluconazole/Sodium Chloride (200 mg/ Premix) 100 mls @ 100 mls/hr IV ONETIME ONE Stop: 06/05/17 16:59 Last Admin: 06/05/17 16:40 Dose: 100 mls/hr Potassium Chloride 10 meq/ (Premix) 100 mls @ 100 mls/hr IV Q1H [facility] Stop: 06/06/17 14:14 Last Admin: 06/06/17 13:29 Dose: Not Given Potassium Chloride 10 meq/ (Premix) 100 mls @ 100 mls/hr IV Q1H [facility] Stop: 06/06/17 15:59 Last Admin: 06/06/17 19:52 Dose: 100 mls/hr Cefepime HCl 2 gm/ Premix 50 mls @ 100 mls/hr IV Q12H [facility] Stop: 06/09/17 12:01 Last Admin: 06/09/17 11:21 Dose: 100 mls/hr Potassium Chloride 10 meq/ (Premix) 100 mls @ 100 mls/hr IV Q1H [facility] Stop: 06/08/17 18:59 Last Admin: 06/08/17 19:32 Dose: 100 mls/hr Meropenem 500 mg/ Sodium (Chloride) 100 mls @ 200 mls/hr IV Q6H [facility] Stop: 06/11/17 13:01 Last Admin: 06/11/17 12:47 Dose: 200 mls/hr Potassium Chloride 10 meq/ (Premix) 100 mls @ 100 mls/hr IV Q1H [facility] Stop: 06/09/17 22:59 Potassium Chloride 10 meq/ (Premix) 100 mls @ 100 mls/hr IV Q1H [facility] Stop: 06/10/17 19:29 Last Admin: 06/10/17 19:05 Dose: 100 mls/hr Influenza Virus Vaccine (Pharmacy To Dose - Influenza Vaccine) 1 each IM ONETIME ONE Stop: 06/04/17 15:09 Influenza Virus Vaccine (Flulaval Quad 9310-9595) 60 mcg IM .ONCE ONE Stop: 06/04/17 15:16 Lorazepam (Ativan) 0.5 mg PO TID [facility] Lorazepam (Ativan) 0.5 mg IVPUSH Q8H [facility] Last Admin: 06/05/17 03:00 Dose: 0.5 mg Lorazepam (Ativan) 0.25 mg IVPUSH Q8H [facility] Lorazepam (Ativan) 0.25 mg IVPUSH Q8H [facility] Last Admin: 06/06/17 02:51 Dose: Not Given Lorazepam (Ativan) 0.25 mg IVPUSH Q6H PRN PRN Reason: restlessness Last Admin: 06/06/17 10:15 Dose: 0.25 mg Magnesium Sulfate (Pharmacy To Dose - Magnesium Replacement) 1 dose .XX ASDIRECTED [facility] Metoclopramide HCl (Reglan) 5 mg IVPUSH Q8H [facility] Last Admin: 06/07/17 09:44 Dose: 5 mg Miscellaneous Information (Remove Patch) 1 ea TRDERM Q72H [facility] Ondansetron HCl (Zofran) 4 mg IVPUSH ONETIME ONE Stop: 06/04/17 10:30 Last Admin: 06/04/17 10:47 Dose: 4 mg Pantoprazole Sodium (Protonix Iv) 40 mg IVPUSH Q12H [facility] Last Admin: 06/08/17 05:53 Dose: 40 mg Pneumococcal Polyvalent Vaccine (Pneumovax 23) 0.5 ml IM .ONCE ONE Stop: 06/04/17 15:09 Potassium Chloride (Pharmacy To Dose - Potassium Replacement) 1 dose .XX ASDIRECTED [facility] Potassium Chloride (Klor-Con M20) 40 meq PO ONETIME ONE Stop: 06/05/17 08:01 Potassium Chloride (Klor-Con M20) 20 meq PO DAILY [facility] Potassium Chloride (Klor-Con M20) 20 meq PO DAILY [facility] Stop: 06/11/17 09:01 Last Admin: 06/11/17 09:54 Dose: 20 meq - Exam Quality Assessment: DVT Prophylaxis General: Alert, Oriented, Cooperative, No Acute Distress HEENT: Pupils Equal, Pupils Reactive, EOMI Neck: Trachea Midline, No JVD Lungs: Normal Respiratory Effort Cardiovascular: Regular Rate, Regular Rhythm GI/Abdominal Exam: Normal Bowel Sounds, Soft, Non-Tender, No Organomegaly, No Distention (Female) Exam: Deferred Back Exam: Normal Inspection Extremities: Normal Inspection Skin: Warm Neurological: No New Focal Deficit Psy/Mental Status: Alert - Problem List Review Problem List Initiated/Reviewed/Updated: Yes - Plan Plan:: I/P: Acute: SBO -serial abd films, SBO improving---improvements on todays xray -Hx/o SOB due to adhesions - hospitalized last January -CRP 13.0-->14.3-->9.2-->6.3------>1.4 -PRN antiemetics -Tolerating clear liquids -General Surgery, Dr. Franks consulted; she has Rec'd enemas per Dr. Franks as she refused to have NG reinserted last week. Hypokalemia -Replete and monitor daily labs -Follow mag Anemia -Hgb; stable -B12, folic acid WNL and iron is low--recommend iron supplementation after resolution of SBO Candidal dermatitis -Lesions noted scattered over body but especially in groin and under breasts ; Patient avoids bathing/showers -Nystatin powder; Diflucan IV x 1 dose -Florastor -Culture wound - with GNR present-Meropenem---for 48 hours then will transition to PO cephalosporin Resolved: Dehydration--resolved Hyponatremia--resolved Fall in bathroom 06/05/17 morning, striking head and left elbow----no further dizziness or concerning symptoms -Head CT -- negative for acute findings -Wound care/bandaid to elbow -Decrease ativan dose from 0.5 to 0.25mg IV Q8H -PT/OT -Fall precautions/up with assist at all times Chronic: HLD HTN - stable, home and PRN BP meds as needed GERD - Protonix IV Seizures- home meds Anxiety - ativan IVP for now, once able to take PO back to home dose Schizophrenia - home meds Hypothyroidism - Check TSH--normal at 1.295 Anemia - as above Other: PT/OT CM/SW for discharge planning---LOS pending progress/resolution of SBO--very slow PT/OT Routine AM labs Home medications Other orders as indicated above. Code status: Full code. PCP: Dr. Bryson at [facility]. Psychiatrist: Dr. Greenberg. [facility] also assists her. LOS>96 hours with slow improvement, advancement of diet, will DC on Saturday, .
[2017-06-11] MEDS: Latanoprost 0.005% Ophth Soln 2.5 ML Bottle EYEBOTH SCH (21:08)
[2017-06-12] MEDS: LORazepam 2 MG/ML SDV IVPUSH SCH ×4 (04:05→16:50)
[2017-06-12] MEDS: Metoclopramide 10 MG Tab PO SCH ×4 (06:04→22:47)
[2017-06-12] MEDS: Sodium Chloride 0.45% with KCl 1,000 ML IV SCH (06:04)
[2017-06-12] MEDS: Levothyroxine 88 MCG Tab PO SCH (06:05)
--- NOTE | 2017-06-12 07:06 | CONS ---
CONSULTING PHYSICIAN: Gabriel Marmolejo DATE OF CONSULTATION: 06/11/2017 REQUESTING PHYSICIAN: Dr. Nadia Cummins. Thank you for asking me to see this nice lady in consultation. As you know, she is admitted for a partial small-bowel obstruction and she has been slow to progress. But in the last 2 days, she has had 2 days with intermittent bouts of diarrhea after no stools for several days. 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 Right now, at this point in time, her abdomen is soft. She has normal bowel sounds. Her x-ray from yesterday does reveal a small amount of small bowel gas and some fair amount of gas in the transverse colon. She has been on a clear liquid diet for the past 2 days and has tolerated that well without any vomiting. At present, I feel she probably has a resolving partial small-bowel obstruction. I do not feel she needs to have any surgery at this point in time, and I have advanced her to a full liquid diet, and we can follow her over the next couple of days, and she probably might be able to go home after that time. Thank you again for asking me to see her in consultation. MOSES /[id number]
[2017-06-12] MEDS: Saccharomyces Boulardii (Probiotic) 250 MG Cap PO SCH ×2 (08:30→22:51)
[2017-06-12] MEDS: Simethicone 80 MG Tab.Chew PO SCH ×4 (08:30→22:46)
[2017-06-12] MEDS: cloZAPine 100 MG Tab PO SCH ×3 (08:30→22:47)
[2017-06-12] MEDS: amLODIPine 2.5 MG Tab PO SCH (08:30)
[2017-06-12] MEDS: Famotidine 20 MG/2 ML SDV IVPUSH SCH (08:31)
[2017-06-12] MEDS: Atenolol 25 MG Tab PO SCH (08:31)
[2017-06-12] MEDS: Enoxaparin 40 MG/0.4 ML Syringe SUBCUT SCH (08:31)
[2017-06-12] MEDS: Nystatin Topical Powder 15 GM Bottle TOP SCH ×3 (08:32→22:52)
--- NOTE | 2017-06-12 08:37 | PCM.PN ---
- General Info Date of Service: 06/12/17 Admission Dx/Problem (Free Text): Admission Diagnosis/Problem Admission Diagnosis/Problem DAMI Butts is seen this morning. Sitting up in bed. States her belly feels "a little better today". She does feel bloated, is passing gas by her report. She is having BM's. She reports she did not walk yesterday and that she doesn't know why; she was refusing by nursing report. I encourage her to walk today. Dr. Marmolejo advanced her diet to full liquid, she was happy to report she ate oatmeal this morning with no abd pain or nausea. VSS. Labs stable. Functional Status: Reports: Pain Controlled, Tolerating Diet (full liquid), Ambulating (to BR, patient is refusing to ambulate more than this. ), Urinating , Incentive Spirometry - Review of Systems General: Reports: No Symptoms HEENT: Reports: No Symptoms Pulmonary: Reports: No Symptoms. Denies: Cough Cardiovascular: Reports: No Symptoms. Denies: Chest Pain Gastrointestinal: Denies: Abdominal Pain (denies abd pain this morning), Diarrhea, Nausea (denies this morning), Vomiting Genitourinary: Reports: No Symptoms Neurological: Reports: No Symptoms Psychiatric: Reports: Other (pleasant and talkative this moring). Denies: Confusion, Depression, Agitation, Hallucinations - Patient Data Vitals - Most Recent: Last Vital Signs Temp 97.9 F 06/12/17 02:51 Pulse 98 06/12/17 08:31 Resp 18 06/12/17 02:51 BP 129/71 06/12/17 08:31 Pulse Ox 97 06/12/17 02:51 Weight - Most Recent: 148 lb 11.2 oz I&O - Last 24 Hours: Intake & Output 06/11/17 06/12/17 06/12/17 22:59 06:59 14:59 Intake Total 3248 1824 Output Total 900 Balance 3248 924 Med Orders - Current: Current Medications Acetaminophen (Tylenol) 650 mg PO Q4H PRN PRN Reason: Pain (Mild 1-3)/fever Last Admin: 06/10/17 09:52 Dose: 650 mg Albuterol/Ipratropium (Duoneb 3.0-0.5 Mg/3 Ml) 3 ml NEB Q4H PRN PRN Reason: Shortness Of Breath/wheezing Amlodipine Besylate (Norvasc) 2.5 mg PO DAILY [facility] Last Admin: 06/12/17 08:30 Dose: 2.5 mg Atenolol (Tenormin) 25 mg PO DAILY [facility] Last Admin: 06/12/17 08:31 Dose: 25 mg Bisacodyl (Dulcolax) 5 mg PO DAILY PRN PRN Reason: Constipation Last Admin: 06/06/17 06:35 Dose: 5 mg Clozapine (Clozapine) 350 mg PO BEDTIME [facility] Last Admin: 06/11/17 21:04 Dose: 350 mg Clozapine (Clozapine) 200 mg PO 0700,1700 [facility] Last Admin: 06/12/17 08:30 Dose: 200 mg Docusate Sodium (Colace) 100 mg PO BID PRN PRN Reason: Constipation Enoxaparin Sodium (Lovenox) 40 mg SUBCUT DAILY [facility] Last Admin: 06/12/17 08:31 Dose: 40 mg Famotidine (Pepcid) 20 mg IVPUSH BID [facility] Last Admin: 06/12/17 08:31 Dose: 20 mg Potassium Chloride/Sodium Chloride (1/2 Ns With 20 Meq Kcl) 1,000 mls @ 75 mls/ hr IV ASDIRECTED [facility] Last Admin: 06/12/17 06:04 Dose: 75 mls/hr Latanoprost (Xalatan 0.005% Oph Soln) 0 ml EYEBOTH BEDTIME [facility] Last Admin: 06/11/17 21:08 Dose: 1 drop Levothyroxine Sodium (Synthroid) 88 mcg PO ACBRK [facility] Last Admin: 06/12/17 06:05 Dose: 88 mcg Lorazepam (Ativan) 0.25 mg IVPUSH Q8H [facility] Last Admin: 06/12/17 08:31 Dose: 0.25 mg Metoclopramide HCl (Reglan) 5 mg PO QIDACANDBED [facility] Last Admin: 06/12/17 06:04 Dose: 5 mg Miscellaneous Information (Remove Patch) 1 ea TRDERM Q72H [facility] Last Admin: 06/10/17 15:47 Dose: Not Given Nystatin (Nystop) 2 gm TOP TID [facility] Stop: 06/18/17 21:01 Last Admin: 06/11/17 21:07 Dose: 1 applic Ondansetron HCl (Zofran Odt) 4 mg PO Q6H PRN PRN Reason: nausea, able to take PO Ondansetron HCl (Zofran) 4 mg IV Q4H PRN PRN Reason: Nausea/Vomiting Saccharomyces Boulardii (Florastor) 250 mg PO BID [facility] Last Admin: 06/12/17 08:30 Dose: 250 mg Scopolamine (Scopolamine) 1 each TRDERM Q72H PRN PRN Reason: Nausea/Vomiting Last Admin: 06/10/17 15:46 Dose: 1 each Senna/Docusate Sodium (Senna Plus) 1 tab PO BID PRN PRN Reason: Constipation Last Admin: 06/06/17 06:35 Dose: 1 tab Simethicone (Simethicone) 80 mg PO QIDACANDBED [facility] Last Admin: 06/12/17 08:30 Dose: 80 mg Discontinued Medications Clozapine (Clozapine) 350 mg PO BEDTIME [facility] Last Admin: 06/05/17 16:08 Dose: Not Given Clozapine (Clozapine) 200 mg PO 0700,1700 [facility] Last Admin: 06/05/17 16:07 Dose: Not Given Clozapine (Clozapine) 350 mg PO ONETIME ONE Stop: 06/04/17 23:31 Last Admin: 06/04/17 23:35 Dose: 350 mg Furosemide (Lasix) 10 mg IVPUSH NOW ONE Stop: 06/07/17 07:31 Last Admin: 06/07/17 10:17 Dose: Not Given Furosemide (Lasix) 10 mg IVPUSH NOW ONE Stop: 06/07/17 10:16 Last Admin: 06/07/17 10:16 Dose: 10 mg Sodium Chloride (Normal Saline) 1,000 mls @ 999 mls/hr IV ONETIME ONE Stop: 06/04/17 11:29 Last Admin: 06/04/17 10:49 Dose: 999 mls/hr Sodium Chloride (Normal Saline) 1,000 mls @ 999 mls/hr IV ONETIME ONE Stop: 06/04/17 14:22 Last Admin: 06/04/17 13:28 Dose: 999 mls/hr Sodium Chloride (Normal Saline) 1,000 mls @ 75 mls/hr IV ASDIRECTED [facility] Last Admin: 06/04/17 15:45 Dose: 75 mls/hr Premix 1 bag/ Magnesium (Sulfate) 50 mls @ 50 mls/hr IV ONETIME ONE Stop: 06/04/17 17:14 Last Admin: 06/04/17 17:26 Dose: 50 mls/hr Dextrose/Sodium Chloride (Dextrose 5%-Normal Saline) 1,000 mls @ 100 mls/hr IV ASDIRECTED [facility] Last Admin: 06/09/17 02:08 Dose: 100 mls/hr Fluconazole/Sodium Chloride (200 mg/ Premix) 100 mls @ 100 mls/hr IV ONETIME ONE Stop: 06/05/17 08:59 Last Admin: 06/05/17 09:27 Dose: Not Given Potassium Chloride 10 meq/ (Premix) 100 mls @ 100 mls/hr IV Q1H [facility] Stop: 06/05/17 11:44 Last Admin: 06/05/17 14:10 Dose: Not Given Potassium Chloride 10 meq/ (Premix) 100 mls @ 100 mls/hr IV Q1H [facility] Stop: 06/05/17 13:14 Last Admin: 06/05/17 15:05 Dose: 100 mls/hr Fluconazole/Sodium Chloride (200 mg/ Premix) 100 mls @ 100 mls/hr IV ONETIME ONE Stop: 06/05/17 14:59 Last Admin: 06/05/17 16:08 Dose: Not Given Fluconazole/Sodium Chloride (200 mg/ Premix) 100 mls @ 100 mls/hr IV ONETIME ONE Stop: 06/05/17 16:59 Last Admin: 06/05/17 16:40 Dose: 100 mls/hr Potassium Chloride 10 meq/ (Premix) 100 mls @ 100 mls/hr IV Q1H [facility] Stop: 06/06/17 14:14 Last Admin: 06/06/17 13:29 Dose: Not Given Potassium Chloride 10 meq/ (Premix) 100 mls @ 100 mls/hr IV Q1H [facility] Stop: 06/06/17 15:59 Last Admin: 06/06/17 19:52 Dose: 100 mls/hr Cefepime HCl 2 gm/ Premix 50 mls @ 100 mls/hr IV Q12H [facility] Stop: 06/09/17 12:01 Last Admin: 06/09/17 11:21 Dose: 100 mls/hr Potassium Chloride 10 meq/ (Premix) 100 mls @ 100 mls/hr IV Q1H [facility] Stop: 06/08/17 18:59 Last Admin: 06/08/17 19:32 Dose: 100 mls/hr Meropenem 500 mg/ Sodium (Chloride) 100 mls @ 200 mls/hr IV Q6H [facility] Stop: 06/11/17 13:01 Last Admin: 06/11/17 12:47 Dose: 200 mls/hr Potassium Chloride 10 meq/ (Premix) 100 mls @ 100 mls/hr IV Q1H [facility] Stop: 06/09/17 22:59 Potassium Chloride 10 meq/ (Premix) 100 mls @ 100 mls/hr IV Q1H [facility] Stop: 06/10/17 19:29 Last Admin: 06/10/17 19:05 Dose: 100 mls/hr Influenza Virus Vaccine (Pharmacy To Dose - Influenza Vaccine) 1 each IM ONETIME ONE Stop: 06/04/17 15:09 Influenza Virus Vaccine (Flulaval Quad 1432-2670) 60 mcg IM .ONCE ONE Stop: 06/04/17 15:16 Lorazepam (Ativan) 0.5 mg PO TID [facility] Lorazepam (Ativan) 0.5 mg IVPUSH Q8H [facility] Last Admin: 06/05/17 03:00 Dose: 0.5 mg Lorazepam (Ativan) 0.25 mg IVPUSH Q8H [facility] Lorazepam (Ativan) 0.25 mg IVPUSH Q8H [facility] Last Admin: 06/06/17 02:51 Dose: Not Given Lorazepam (Ativan) 0.25 mg IVPUSH Q6H PRN PRN Reason: restlessness Last Admin: 06/06/17 10:15 Dose: 0.25 mg Magnesium Sulfate (Pharmacy To Dose - Magnesium Replacement) 1 dose .XX ASDIRECTED [facility] Metoclopramide HCl (Reglan) 5 mg IVPUSH Q8H [facility] Last Admin: 06/07/17 09:44 Dose: 5 mg Miscellaneous Information (Remove Patch) 1 ea TRDERM Q72H [facility] Ondansetron HCl (Zofran) 4 mg IVPUSH ONETIME ONE Stop: 06/04/17 10:30 Last Admin: 06/04/17 10:47 Dose: 4 mg Pantoprazole Sodium (Protonix Iv) 40 mg IVPUSH Q12H [facility] Last Admin: 06/08/17 05:53 Dose: 40 mg Pneumococcal Polyvalent Vaccine (Pneumovax 23) 0.5 ml IM .ONCE ONE Stop: 06/04/17 15:09 Potassium Chloride (Pharmacy To Dose - Potassium Replacement) 1 dose .XX ASDIRECTED [facility] Potassium Chloride (Klor-Con M20) 40 meq PO ONETIME ONE Stop: 06/05/17 08:01 Potassium Chloride (Klor-Con M20) 20 meq PO DAILY [facility] Potassium Chloride (Klor-Con M20) 20 meq PO DAILY [facility] Stop: 06/11/17 09:01 Last Admin: 06/11/17 09:54 Dose: 20 meq Simethicone (Simethicone) 80 mg PO QIDACANDBED [facility] - Exam Quality Assessment: DVT Prophylaxis General: Alert, Oriented, Cooperative, No Acute Distress HEENT: Pupils Equal, EOMI, Mucous Membr. Moist/[place] Neck: Supple Lungs: Clear to Auscultation, Normal Respiratory Effort Cardiovascular: Regular Rate, Regular Rhythm GI/Abdominal Exam: Normal Bowel Sounds, Soft, Non-Tender. No: Guarding, Rigid, Rebound, Tender (Female) Exam: Deferred Extremities: Normal Inspection, No Pedal Edema Neurological: No New Focal Deficit Psy/Mental Status: Alert, Normal Affect, Normal Mood - Problem List & Annotations (1) SBO (small bowel obstruction) SNOMED Code(s): 741433467 Code(s): K56.69 - OTHER INTESTINAL OBSTRUCTION * DO NOT USE * Status: Acute Priority: High Current Visit: Yes (2) Nausea and vomiting SNOMED Code(s): 99901128 Code(s): R11.2 - NAUSEA WITH VOMITING, UNSPECIFIED Status: Resolved Priority: High Current Visit: Yes Qualifiers: Vomiting type: unspecified (3) Fall SNOMED Code(s): 8061853 Code(s): W19.XXXA - UNSPECIFIED FALL, INITIAL ENCOUNTER Status: Resolved Priority: High Current Visit: Yes Qualifiers: Encounter type: initial encounter Qualified Code(s): W19.XXXA - Unspecified fall, initial encounter (4) Acute kidney injury SNOMED Code(s): 53623078 Code(s): N17.9 - ACUTE KIDNEY FAILURE, UNSPECIFIED Status: Resolved Priority: High Current Visit: Yes (5) Hypokalemia SNOMED Code(s): 42985515 Code(s): E87.6 - HYPOKALEMIA Status: Acute Priority: High Current Visit : Yes (6) Dehydration SNOMED Code(s): 15402485 Code(s): E86.0 - DEHYDRATION Status: Resolved Priority: High Current Visit: Yes (7) Candidal dermatitis SNOMED Code(s): 91409471 Code(s): B37.2 - CANDIDIASIS OF SKIN AND NAIL Status: Resolved Priority: High Current Visit: Yes (8) Leukocytosis SNOMED Code(s): 502286706 Code(s): D72.829 - ELEVATED WHITE BLOOD CELL COUNT, UNSPECIFIED Status: Resolved Priority: Medium Current Visit: Yes Qualifiers: Leukocytosis type: unspecified Qualified Code(s): D72.829 - Elevated white blood cell count, unspecified (9) Schizophrenia SNOMED Code(s): 45054482 Code(s): F20.9 - SCHIZOPHRENIA, UNSPECIFIED Status: Chronic Priority: Medium Current Visit: Yes Qualifiers: Schizophrenia type: paranoid schizophrenia Qualified Code(s): F20.0 - Paranoid schizophrenia - Problem List Review Problem List Initiated/Reviewed/Updated: Yes - My Orders Last 24 Hours: My Active Orders 06/12/17 08:00 Simethicone 80 mg PO QIDACANDBED - Plan Plan:: I/P: Acute: SBO -serial abd films, SBO improving---improvements on xray -Hx/o SOB due to adhesions - hospitalized last January, -CRP 13.0-->14.3-->9.2-->6.3------>1.4 -PRN antiemetics -Tolerating full liquids -General Surgery, Dr. Franks consulted; she has Rec'd enemas per Dr. Franks as she refused to have NG reinserted last week. -Dr. Marmolejo now following patient- advanced to full liquids and will follow her along. Hypokalemia -Replete and monitor daily labs -Follow mag Anemia -Hgb; stable -B12, folic acid WNL and iron is low--recommend iron supplementation after resolution of SBO Candidal dermatitis --- improving to resolved. -Lesions noted scattered over body but especially in groin and under breasts ; Patient avoids bathing/showers -Nystatin powder; Diflucan IV x 1 dose -Florastor -Culture wound - with GNR present-Meropenem---for 48 hours then will transition to PO cephalosporin Resolved: Dehydration--resolved Hyponatremia--resolved Fall in bathroom 06/05/17 morning, striking head and left elbow----no further dizziness or concerning symptoms -Head CT -- negative for acute findings -Wound care/bandaid to elbow -Decrease ativan dose from 0.5 to 0.25mg IV Q8H -PT/OT -Fall precautions/up with assist at all times Chronic: HLD HTN - stable, home and PRN BP meds as needed GERD - Protonix IV Seizures- home meds Anxiety - ativan IVP for now, once able to take PO back to home dose Schizophrenia - home meds Hypothyroidism - Check TSH--normal at 1.295 Anemia - as above Other: PT/OT CM/SW for discharge planning---LOS pending progress/resolution of SBO--very slow PT/OT Routine AM labs Home medications Other orders as indicated above. Code status: Full code. PCP: Dr. Bryson at [facility]. Psychiatrist: Dr. Greenberg. [facility] also assists her. LOS>96 hours with slow improvement, advancement of diet, will anticipate DC on 06/13/17.
[2017-06-12] MEDS: Famotidine 20 MG Tab PO SCH ×2 (09:03→22:46)
[2017-06-12] MEDS ORDERED: Simethicone 80 MG Tab.Chew PO SCH (11:00)
[2017-06-12] MEDS: Polyethylene Glycol 3350 Powder 17 GM Packet PO SCH (11:25)
[2017-06-12] MEDS ORDERED: Potassium Chloride/Sodium Chloride Tab PO ONE ×2 (19:32→23:00)
[2017-06-12] MEDS: Magnesium Sulfate/Water 2 GM in Premix Bag 1 BAG IV SCH ×2 (22:44→23:03)
[2017-06-12] MEDS: Latanoprost 0.005% Ophth Soln 2.5 ML Bottle EYEBOTH SCH (22:53)
[2017-06-13] MEDS: LORazepam 2 MG/ML SDV IVPUSH SCH ×3 (02:20→17:13)
[2017-06-13] MEDS: Metoclopramide 10 MG Tab PO SCH ×2 (06:06→18:27)
[2017-06-13] MEDS: Levothyroxine 88 MCG Tab PO SCH (06:07)
[2017-06-13] MEDS: Simethicone 80 MG Tab.Chew PO SCH ×4 (06:07→21:15)
[2017-06-13] MEDS: cloZAPine 100 MG Tab PO SCH ×3 (06:55→21:12)
[2017-06-13] MEDS: Polyethylene Glycol 3350 Powder 17 GM Packet PO SCH (09:29)
[2017-06-13] MEDS: Saccharomyces Boulardii (Probiotic) 250 MG Cap PO SCH ×2 (09:30→21:11)
[2017-06-13] MEDS: Atenolol 25 MG Tab PO SCH (09:30)
[2017-06-13] MEDS: Cephalexin 500 MG Cap PO SCH ×3 (09:31→17:13)
[2017-06-13] MEDS: Enoxaparin 40 MG/0.4 ML Syringe SUBCUT SCH (09:32)
[2017-06-13] MEDS: Famotidine 20 MG Tab PO SCH ×2 (09:32→21:12)
[2017-06-13] MEDS: amLODIPine 2.5 MG Tab PO SCH (09:32)
--- NOTE | 2017-06-13 12:54 | PCM.PN ---
- General Info Date of Service: 06/13/17 Functional Status: Reports: Pain Controlled, Tolerating Diet, Ambulating, Urinating - Review of Systems General: Reports: No Symptoms HEENT: Reports: No Symptoms Pulmonary: Reports: No Symptoms Cardiovascular: Reports: No Symptoms Gastrointestinal: Reports: No Symptoms Genitourinary: Reports: No Symptoms Musculoskeletal: Reports: No Symptoms Skin: Reports: No Symptoms Neurological: Reports: No Symptoms Psychiatric: Reports: No Symptoms - Patient Data Vitals - Most Recent: Last Vital Signs Temp 36.2 C 06/13/17 11:44 Pulse 87 06/13/17 11:44 Resp 19 06/13/17 11:44 BP 132/78 06/13/17 11:44 Pulse Ox 98 06/13/17 11:44 Weight - Most Recent: 67.676 kg I&O - Last 24 Hours: Intake & Output 06/12/17 06/13/17 06/13/17 22:59 06:59 14:59 Intake Total 2232 1300 540 Output Total 1000 Balance 2232 300 540 Lab Results Last 24 Hours: Laboratory Results - last 24 hr 06/13/17 06/13/17 Range/Units 06:50 06:50 WBC 6.83 (3.98-10.04) K/mm3 RBC 3.40 L (3.98-5.22) M/mm3 Hgb 9.2 L (11.2-15.7) gm/L Hct 28.3 L (34.1-44.9) % MCV 83.2 (79.4-94.8) fl MCH 27.1 (25.6-32.2) pg MCHC 32.5 (32.2-35.5) g/dl RDW Std Deviation 46.1 (36.4-46.3) fL Plt Count 404 H (182-369) K/mm3 MPV 7.9 L (9.4-12.3) fl Neut % (Auto) 57.2 (34.0-71.1) % Lymph % (Auto) 23.9 (19.3-51.7) % [place] % (Auto) 13.9 H (4.7-12.5) % Eos % (Auto) 3.4 (0.7-5.8) Baso % (Auto) 0.4 (0.1-1.2) % Neut # (Auto) 3.91 (1.56-6.13) K/mm3 Lymph # (Auto) 1.63 (1.18-3.74) K/mm3 Monroe # (Auto) 0.95 H (0.24-0.36) K/mm3 Eos # (Auto) 0.23 (0.04-0.36) K/mm3 Baso # (Auto) 0.03 (0.01-0.08) K/mm3 Sodium 134 L (136-145) mEq/L Potassium 4.2 (3.5-5.1) mEq/L Chloride 100 (98-107) mEq/L Carbon Dioxide 28 (21-32) mEq/L Anion Gap 10.2 (5-15) BUN 6 L (7-18) mg/dL Creatinine 0.8 (0.55-1.02) mg/dL Est Cr Clr Drug Dosing 65.61 mL/min Estimated GFR (MDRD) > 60 (>60) mL/min BUN/Creatinine Ratio 7.5 L (14-18) Glucose 97 (80-115) mg/dL Calcium 9.0 (8.5-10.1) mg/dL Magnesium 2.8 H (1.8-2.4) mg/dl Med Orders - Current: Current Medications Acetaminophen (Tylenol) 650 mg PO Q4H PRN PRN Reason: Pain (Mild 1-3)/fever Last Admin: 06/10/17 09:52 Dose: 650 mg Albuterol/Ipratropium (Duoneb 3.0-0.5 Mg/3 Ml) 3 ml NEB Q4H PRN PRN Reason: Shortness Of Breath/wheezing Amlodipine Besylate (Norvasc) 2.5 mg PO DAILY [facility] Last Admin: 06/13/17 09:32 Dose: 2.5 mg Atenolol (Tenormin) 25 mg PO DAILY [facility] Last Admin: 06/13/17 09:30 Dose: 25 mg Bisacodyl (Dulcolax) 5 mg PO DAILY PRN PRN Reason: Constipation Last Admin: 06/06/17 06:35 Dose: 5 mg Cephalexin (Keflex) 500 mg PO Q6HR [facility] Last Admin: 06/13/17 11:31 Dose: 500 mg Clozapine (Clozapine) 350 mg PO BEDTIME [facility] Last Admin: 06/12/17 22:47 Dose: 350 mg Clozapine (Clozapine) 200 mg PO 0700,1700 [facility] Last Admin: 06/13/17 06:55 Dose: 200 mg Docusate Sodium (Colace) 100 mg PO BID PRN PRN Reason: Constipation Enoxaparin Sodium (Lovenox) 40 mg SUBCUT DAILY [facility] Last Admin: 06/13/17 09:32 Dose: 40 mg Famotidine (Pepcid) 20 mg PO BID [facility] Last Admin: 06/13/17 09:32 Dose: 20 mg Latanoprost (Xalatan 0.005% Ophth Soln) 0 ml EYEBOTH BEDTIME [facility] Last Admin: 06/12/17 22:53 Dose: 1 drop Levothyroxine Sodium (Synthroid) 88 mcg PO ACBRK [facility] Last Admin: 06/13/17 06:07 Dose: 88 mcg Lorazepam (Ativan) 0.25 mg IVPUSH Q8H [facility] Last Admin: 06/13/17 09:32 Dose: 0.25 mg Metoclopramide HCl (Reglan) 5 mg PO QIDACANDBED [facility] Last Admin: 06/13/17 06:06 Dose: 5 mg Miscellaneous Information (Remove Patch) 1 ea TRDERM Q72H [facility] Last Admin: 06/10/17 15:47 Dose: Not Given Nystatin (Nystop) 2 gm TOP TID [facility] Stop: 06/18/17 21:01 Last Admin: 06/12/17 22:52 Dose: 1 applic Ondansetron HCl (Zofran Odt) 4 mg PO Q6H PRN PRN Reason: nausea, able to take PO Ondansetron HCl (Zofran) 4 mg IV Q4H PRN PRN Reason: Nausea/Vomiting Polyethylene Glycol (Miralax) 17 gm PO DAILY [facility] Last Admin: 06/13/17 09:29 Dose: 17 gm Saccharomyces Boulardii (Florastor) 250 mg PO BID [facility] Last Admin: 06/13/17 09:30 Dose: 250 mg Senna/Docusate Sodium (Senna Plus) 1 tab PO BID PRN PRN Reason: Constipation Last Admin: 06/06/17 06:35 Dose: 1 tab Simethicone (Simethicone) 80 mg PO QIDACANDBED [facility] Last Admin: 06/13/17 06:07 Dose: 80 mg Discontinued Medications Clozapine (Clozapine) 350 mg PO BEDTIME [facility] Last Admin: 06/05/17 16:08 Dose: Not Given Clozapine (Clozapine) 200 mg PO 0700,1700 [facility] Last Admin: 06/05/17 16:07 Dose: Not Given Clozapine (Clozapine) 350 mg PO ONETIME ONE Stop: 06/04/17 23:31 Last Admin: 06/04/17 23:35 Dose: 350 mg Famotidine (Pepcid) 20 mg IVPUSH BID [facility] Last Admin: 06/12/17 08:31 Dose: 20 mg Furosemide (Lasix) 10 mg IVPUSH NOW ONE Stop: 06/07/17 07:31 Last Admin: 06/07/17 10:17 Dose: Not Given Furosemide (Lasix) 10 mg IVPUSH NOW ONE Stop: 06/07/17 10:16 Last Admin: 06/07/17 10:16 Dose: 10 mg Sodium Chloride (Normal Saline) 1,000 mls @ 999 mls/hr IV ONETIME ONE Stop: 06/04/17 11:29 Last Admin: 06/04/17 10:49 Dose: 999 mls/hr Sodium Chloride (Normal Saline) 1,000 mls @ 999 mls/hr IV ONETIME ONE Stop: 06/04/17 14:22 Last Admin: 06/04/17 13:28 Dose: 999 mls/hr Sodium Chloride (Normal Saline) 1,000 mls @ 75 mls/hr IV ASDIRECTED [facility] Last Admin: 06/04/17 15:45 Dose: 75 mls/hr Premix 1 bag/ Magnesium (Sulfate) 50 mls @ 50 mls/hr IV ONETIME ONE Stop: 06/04/17 17:14 Last Admin: 06/04/17 17:26 Dose: 50 mls/hr Dextrose/Sodium Chloride (Dextrose 5%-Normal Saline) 1,000 mls @ 100 mls/hr IV ASDIRECTED [facility] Last Admin: 06/09/17 02:08 Dose: 100 mls/hr Fluconazole/Sodium Chloride (200 mg/ Premix) 100 mls @ 100 mls/hr IV ONETIME ONE Stop: 06/05/17 08:59 Last Admin: 06/05/17 09:27 Dose: Not Given Potassium Chloride 10 meq/ (Premix) 100 mls @ 100 mls/hr IV Q1H [facility] Stop: 06/05/17 11:44 Last Admin: 06/05/17 14:10 Dose: Not Given Potassium Chloride 10 meq/ (Premix) 100 mls @ 100 mls/hr IV Q1H [facility] Stop: 06/05/17 13:14 Last Admin: 06/05/17 15:05 Dose: 100 mls/hr Fluconazole/Sodium Chloride (200 mg/ Premix) 100 mls @ 100 mls/hr IV ONETIME ONE Stop: 06/05/17 14:59 Last Admin: 06/05/17 16:08 Dose: Not Given Fluconazole/Sodium Chloride (200 mg/ Premix) 100 mls @ 100 mls/hr IV ONETIME ONE Stop: 06/05/17 16:59 Last Admin: 06/05/17 16:40 Dose: 100 mls/hr Potassium Chloride 10 meq/ (Premix) 100 mls @ 100 mls/hr IV Q1H [facility] Stop: 06/06/17 14:14 Last Admin: 06/06/17 13:29 Dose: Not Given Potassium Chloride 10 meq/ (Premix) 100 mls @ 100 mls/hr IV Q1H [facility] Stop: 06/06/17 15:59 Last Admin: 06/06/17 19:52 Dose: 100 mls/hr Cefepime HCl 2 gm/ Premix 50 mls @ 100 mls/hr IV Q12H [facility] Stop: 06/09/17 12:01 Last Admin: 06/09/17 11:21 Dose: 100 mls/hr Potassium Chloride 10 meq/ (Premix) 100 mls @ 100 mls/hr IV Q1H [facility] Stop: 06/08/17 18:59 Last Admin: 06/08/17 19:32 Dose: 100 mls/hr Meropenem 500 mg/ Sodium (Chloride) 100 mls @ 200 mls/hr IV Q6H [facility] Stop: 06/11/17 13:01 Last Admin: 06/11/17 12:47 Dose: 200 mls/hr Potassium Chloride 10 meq/ (Premix) 100 mls @ 100 mls/hr IV Q1H [facility] Stop: 06/09/17 22:59 Potassium Chloride/Sodium Chloride (1/2 Ns With 20 Meq Kcl) 1,000 mls @ 75 mls/ hr IV ASDIRECTED [facility] Last Admin: 06/12/17 06:04 Dose: 75 mls/hr Potassium Chloride 10 meq/ (Premix) 100 mls @ 100 mls/hr IV Q1H [facility] Stop: 06/10/17 19:29 Last Admin: 06/10/17 19:05 Dose: 100 mls/hr Magnesium Sulfate 2 gm/ Premix 50 mls @ 25 mls/hr IV Q1H [facility] Stop: 06/12/17 21:29 Last Admin: 06/12/17 23:03 Dose: 25 mls/hr Influenza Virus Vaccine (Pharmacy To Dose - Influenza Vaccine) 1 each IM ONETIME ONE Stop: 06/04/17 15:09 Influenza Virus Vaccine (Flulaval Quad 0178-1818) 60 mcg IM .ONCE ONE Stop: 06/04/17 15:16 Lorazepam (Ativan) 0.5 mg PO TID [facility] Lorazepam (Ativan) 0.5 mg IVPUSH Q8H [facility] Last Admin: 06/05/17 03:00 Dose: 0.5 mg Lorazepam (Ativan) 0.25 mg IVPUSH Q8H [facility] Lorazepam (Ativan) 0.25 mg IVPUSH Q8H [facility] Last Admin: 06/06/17 02:51 Dose: Not Given Lorazepam (Ativan) 0.25 mg IVPUSH Q6H PRN PRN Reason: restlessness Last Admin: 06/06/17 10:15 Dose: 0.25 mg Magnesium Sulfate (Pharmacy To Dose - Magnesium Replacement) 1 dose .XX ASDIRECTED [facility] Metoclopramide HCl (Reglan) 5 mg IVPUSH Q8H [facility] Last Admin: 06/07/17 09:44 Dose: 5 mg Miscellaneous Information (Remove Patch) 1 ea TRDERM Q72H [facility] Ondansetron HCl (Zofran) 4 mg IVPUSH ONETIME ONE Stop: 06/04/17 10:30 Last Admin: 06/04/17 10:47 Dose: 4 mg Oral Electrolytes (Thermotabs) 1 each PO ONETIME ONE Stop: 06/12/17 23:01 Last Admin: 06/12/17 23:06 Dose: 1 each Pantoprazole Sodium (Protonix Iv) 40 mg IVPUSH Q12H [facility] Last Admin: 06/08/17 05:53 Dose: 40 mg Pneumococcal Polyvalent Vaccine (Pneumovax 23) 0.5 ml IM .ONCE ONE Stop: 06/04/17 15:09 Potassium Chloride (Pharmacy To Dose - Potassium Replacement) 1 dose .XX ASDIRECTED [facility] Potassium Chloride (Klor-Con M20) 40 meq PO ONETIME ONE Stop: 06/05/17 08:01 Potassium Chloride (Klor-Con M20) 20 meq PO DAILY [facility] Potassium Chloride (Klor-Con M20) 20 meq PO DAILY [facility] Stop: 06/11/17 09:01 Last Admin: 06/11/17 09:54 Dose: 20 meq Scopolamine (Scopolamine) 1 each TRDERM Q72H PRN PRN Reason: Nausea/Vomiting Last Admin: 06/10/17 15:46 Dose: 1 each Simethicone (Simethicone) 80 mg PO QIDACANDBED [facility] - Exam Quality Assessment: DVT Prophylaxis General: Alert, Oriented, Cooperative, No Acute Distress HEENT: Pupils Equal, Pupils Reactive, EOMI Neck: Trachea Midline, No JVD Lungs: Normal Respiratory Effort Cardiovascular: Regular Rate, Regular Rhythm GI/Abdominal Exam: Normal Bowel Sounds, Soft, Non-Tender, No Organomegaly, No Distention (Female) Exam: Deferred Back Exam: Normal Inspection Extremities: Normal Inspection Skin: Warm Neurological: No New Focal Deficit, Normal Gait, Normal Speech Psy/Mental Status: Alert, Normal Affect, Normal Mood - Problem List Review Problem List Initiated/Reviewed/Updated: Yes - My Orders Last 24 Hours: My Active Orders 06/13/17 08:15 Cephalexin [Keflex] 500 mg PO Q6HR 06/13/17 08:17 Ready for Discharge [RC] PER UNIT ROUTINE 06/13/17 Lunch Heart Healthy Diet [DIET] - Plan Plan:: I/P: Acute: SBO -serial abd films, SBO improving---improvements on xray -Hx/o SOB due to adhesions - hospitalized last January, -CRP 13.0-->14.3-->9.2-->6.3------>1.4 -PRN antiemetics -Tolerating full liquids -General Surgery, Dr. Franks consulted; she has Rec'd enemas per Dr. Franks as she refused to have NG reinserted last week. -Dr. Marmolejo now following patient- advanced to full liquids and will follow her along. Hypokalemia -Replete and monitor daily labs -Follow mag Anemia -Hgb; stable -B12, folic acid WNL and iron is low--recommend iron supplementation after resolution of SBO Candidal dermatitis --- improving to resolved. -Lesions noted scattered over body but especially in groin and under breasts ; Patient avoids bathing/showers -Nystatin powder; Diflucan IV x 1 dose -Florastor -Culture wound - with GNR present-Meropenem---for 48 hours then will transition to PO cephalosporin Resolved: Dehydration--resolved Hyponatremia--resolved Fall in bathroom 06/05/17 morning, striking head and left elbow----no further dizziness or concerning symptoms -Head CT -- negative for acute findings -Wound care/bandaid to elbow -Decrease ativan dose from 0.5 to 0.25mg IV Q8H -PT/OT -Fall precautions/up with assist at all times Chronic: HLD HTN - stable, home and PRN BP meds as needed GERD - Protonix IV Seizures- home meds Anxiety - ativan IVP for now, once able to take PO back to home dose Schizophrenia - home meds Hypothyroidism - Check TSH--normal at 1.295 Anemia - as above Other: PT/OT CM/SW for discharge planning---LOS pending progress/resolution of SBO--very slow PT/OT Routine AM labs Home medications Other orders as indicated above. Code status: Full code. PCP: Dr. Bryson at [facility]. Psychiatrist: Dr. Greenberg. [facility] also assists her. LOS>96 hours with slow improvement, advancement of diet, will anticipate DC on 06/13/17.
[2017-06-13] MEDS: Nystatin Topical Powder 15 GM Bottle TOP SCH ×3 (17:10→21:15)
[2017-06-13] MEDS: Latanoprost 0.005% Ophth Soln 2.5 ML Bottle EYEBOTH SCH (21:11)
[2017-06-14] MEDS: Cephalexin 500 MG Cap PO SCH ×3 (01:08→11:53)
[2017-06-14] MEDS: LORazepam 2 MG/ML SDV IVPUSH SCH ×2 (01:08→10:27)
[2017-06-14] MEDS: Levothyroxine 88 MCG Tab PO SCH (06:11)
[2017-06-14] MEDS: Simethicone 80 MG Tab.Chew PO SCH ×2 (06:13→10:26)
--- NOTE | 2017-06-14 06:54 | PCM.DCSUM1 ---
Discharge Summary - Hospital Course Free Text/Narrative:: [facility] LIVE Admission History & Physical Patient Name: CLAUDIA BABCOCK Date of : 1955 Patient Status: Inpatient Attending Provider: Jarvis Mauro Date: 06/04/17 16:22 Initialization Date: 06/04/17 16:22 H&P History of Present Illness - General Date of Service: 06/04/17 Admit Problem/Dx: Admission Diagnosis/Problem Admission Diagnosis/Problem Orthostatic hypotension Claudia Babcock is a 62 yo female who presents to the ED today (06/04/17) with complaints of vomiting starting around 2200 last night. She does have a history of paranoid schizophrenia and has a had a reported bilateral frontal lobotomy which leads to some difficulty in answering questions. She denies any diarrhea, fever, recent spoiled food, recent antibiotics, recent travel, or ill contacts. She has not taken any home medications treat this nausea and vomiting. BP is noted to be 96/58 with a heart rate of 89 upon arrival. Patient's caregiver states that the patient's diet consists mainly of diet Coke. Upon arrival temp was 36.1C. Pulse 89. Respirations 16. Blood pressure 96/ 58. Pulse ox 97%. His was obtained which shows a sinus rhythm at 86 bpm. A first-degree AV block is noted. She is found to be orthostatic with a blood pressure 74/37 standing, 96/65 sitting, 101/63 supine. Labs are ordered. The CBC is 12.87. Hemoglobin on the low end of normal at 11.3. Hematocrit low at 33.0. She was normocytic. Platelet counts good at 328,000. Neutrophils are elevated at 74%. Band neutrophils are noted to be 6%. Sodium is quite low at 126. Potassium is on the low end of good at 3.7. Chloride is low at 88. Anion gap is on the high end of normal at 14.7. BUN is slightly elevated at 20. Creatinine is high at 2.2. EGFR is 23. Previous charts from 01/28/2017 showed normal renal function. Glucose is 125. Lactic acid is high at 2.5. Also was 9.0. Negative is on the low end of normal at 1.8. Bilirubin 0.7. AST is 12, ALT 15, alkaline phosphatase 84. Troponin is negative at less than 0.017. Albumin is on the low end of normal at 3.4. UA is obtained and is negative, however it is noted to be dianelys in color with 2+ protein and trace ketones. Chest x-ray is grossly normal however, a minimal prior cold density is seen within the right midlung most likely due to atelectasis per Dr. Catalan report. She was given a 1 L fluid bolus along with 4 mg Zofran for nausea. The patient's memory care director was contacted to discuss findings and it was decided the patient would be admitted. She carries a history of: HLD, HTN, GERD, seizure, anxiety, schizophrenia, hypothyroidism, anemia. She's had a bilateral frontal lobectomy and appendectomy. She is a former smoker. 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 She subsequently admitted to the medical floor. She is a full code. Her PCP is Dr. Bryson at [facility]. She is a client at [facility]. She also sees Dr. Greenberg for psychiatry. - Discharge Data Discharge Date: 06/14/17 (admit date 06/04/17) Discharge Disposition: Home, Self-Care 01 Condition: Good - Discharge Diagnosis/Problem(s) (1) SBO (small bowel obstruction) SNOMED Code(s): 439034062 ICD Code: K56.69 - OTHER INTESTINAL OBSTRUCTION * DO NOT USE * Status: Resolved Priority: High Current Visit: Yes (2) Nausea and vomiting SNOMED Code(s): 73915940 ICD Code: R11.2 - NAUSEA WITH VOMITING, UNSPECIFIED Status: Resolved Priority: High Current Visit: Yes Qualifiers: Vomiting type: unspecified (3) Fall SNOMED Code(s): 5057444 ICD Code: W19.XXXA - UNSPECIFIED FALL, INITIAL ENCOUNTER Status: Resolved Priority: High Current Visit: Yes Qualifiers: Encounter type: initial encounter Qualified Code(s): W19.XXXA - Unspecified fall, initial encounter (4) Acute kidney injury SNOMED Code(s): 73664939 ICD Code: N17.9 - ACUTE KIDNEY FAILURE, UNSPECIFIED Status: Resolved Priority: High Current Visit: Yes (5) Hypokalemia SNOMED Code(s): 27323489 ICD Code: E87.6 - HYPOKALEMIA Status: Resolved Priority: High Current Visit: Yes (6) Dehydration SNOMED Code(s): 78157278 ICD Code: E86.0 - DEHYDRATION Status: Resolved Priority: High Current Visit: Yes (7) Candidal dermatitis SNOMED Code(s): 57257650 ICD Code: B37.2 - CANDIDIASIS OF SKIN AND NAIL Status: Resolved Priority : High Current Visit: Yes (8) Leukocytosis SNOMED Code(s): 383424258 ICD Code: D72.829 - ELEVATED WHITE BLOOD CELL COUNT, UNSPECIFIED Status: Resolved Priority: Medium Current Visit: Yes Qualifiers: Leukocytosis type: unspecified Qualified Code(s): D72.829 - Elevated white blood cell count, unspecified (9) Schizophrenia SNOMED Code(s): 14005628 ICD Code: F20.9 - SCHIZOPHRENIA, UNSPECIFIED Status: Chronic Priority: Medium Current Visit: Yes Qualifiers: Schizophrenia type: paranoid schizophrenia Qualified Code(s): F20.0 - Paranoid schizophrenia - Patient Summary/Data Operative Procedure(s) Performed: None--General Surgery consult- Dr. Franks and Dr. Marmolejo Complications: None- resolution with medical treatment- very slow Consults: Consultations 06/04/17 15:34 Consult to Case Management [CONS] Routine Consult to Driver Examiner [CONS] Routine OT Evaluation and Treatment [CONS] Routine PT Evaluation and Treatment [CONS] Routine 06/05/17 00:35 Consult to Accounting Practice Manager [CONS] Routine 06/06/17 10:57 Consult to Physician [CONS] Routine Labs Pending at D/C: None Recommended Follow-up Testing/Procedures: Patient DC instructions: Upon return to home will need assistance with personal cares, hygiene, bathing, diet, fluid intake, oral cares, medication step up and administration, ambulation 4 times a day, bowel pattern monitoring to prevent obstruction. NO IMODIUM Minimal to no soda Ambulate 3-4 times daily Keep log of bowel movements, if no movements in 2-3 days, need to increase medications for bowels Follow up with PCP, Dr. Bryson within one week of discharge. Planned Operative Procedure(s) after DC: None Hospital Course: I/P: Acute: SBO----Resolved -serial abd films, SBO improving---improvements on xray -Hx/o SOB due to adhesions - hospitalized last January, -CRP 13.0-->14.3-->9.2-->6.3------>1.4 -PRN antiemetics -General Surgery, Dr. Franks consulted; she has Rec'd enemas per Dr. Franks as she refused to have NG reinserted last week. -Dr. Marmolejo now following patient- advanced to regular diet- tolerating - - Surgeon to follow her along. Hypokalemia--resolved -Replete and monitor daily labs -Follow mag Anemia--chronic -Hgb; stable -B12, folic acid WNL and iron is low--recommend iron supplementation after resolution of SBO Candidal dermatitis --- improving to resolved. -Lesions noted scattered over body but especially in groin and under breasts ; Patient avoids bathing/showers -Nystatin powder; Diflucan IV x 1 dose -Florastor -Culture wound - with GNR present-Meropenem---for 48 hours then will transition to PO cephalosporin Resolved: Dehydration--resolved Hyponatremia--resolved Fall in bathroom 06/05/17 morning, striking head and left elbow----no further dizziness or concerning symptoms -Head CT -- negative for acute findings -Wound care/bandaid to elbow -Decrease ativan dose from 0.5 to 0.25mg IV Q8H -PT/OT -Fall precautions/up with assist at all times Chronic: HLD HTN - stable, home and PRN BP meds as needed GERD - Protonix IV Seizures- home meds Anxiety - ativan IVP for now, once able to take PO back to home dose Schizophrenia - home meds Hypothyroidism - Check TSH--normal at 1.295 Anemia - as above--consider iron supplementation on or after discharge- defer to PCP Other: PT/OT CM/SW for discharge planning---LOS pending progress/resolution of SBO--very slow PT/OT Routine AM labs Home medications Other orders as indicated above. Code status: Full code. PCP: Dr. Bryson at [facility]. Psychiatrist: Dr. Greenberg. [facility] also assists her. LOS>96 hours with slow improvement, advancement of diet, will anticipate DC on 06/13/17. - Patient Instructions Diet: Heart Healthy Diet, Drink 8-10+ Glasses/Day, No Alcoholic Beverages ( minimal to no soda pop) Activity: As Tolerated Driving: Do Not Drive Showering/Bathing: May Shower (bathe DAILY) Notify Provider of: Fever, Increased Pain, Nausea and/or Vomiting - Discharge Plan Prescriptions/Med Rec: Cephalexin [IJD: Cephalexin] 500 mg PO Q6HR #20 capsule Nystatin [Nystop] 2 gm TOP TID #15 bottle Polyethylene Glycol 3350 [MiraLAX] 17 gm PO DAILY #30 packet Saccharomyces Boulardii [Florastor] 250 mg PO BID #60 cap Home Medications: Home Meds Latanoprost 1 drop EYEBOTH BEDTIME 03/12/17 [History] cloZAPine [Clozaril] 350 mg PO BEDTIME 03/12/17 [History] Atenolol [Tenormin] 25 mg PO DAILY 06/04/17 [History] LORazepam [Ativan] 0.5 mg PO TID 06/04/17 [History] Levothyroxine [Synthroid] 88 mcg PO DAILY 06/04/17 [History] Pantoprazole Sodium [Protonix] 40 mg PO BID 06/04/17 [History] Simvastatin [Zocor] 10 mg PO BEDTIME 06/04/17 [History] amLODIPine [Norvasc] 2.5 mg PO DAILY 06/04/17 [History] cloZAPine [Clozapine] 200 mg PO BID 06/04/17 [History] Cephalexin [IJD: Cephalexin] 500 mg PO Q6HR #20 capsule 06/13/17 [Rx] Nystatin [Nystop] 2 gm TOP TID #15 bottle 06/13/17 [Rx] Polyethylene Glycol 3350 [MiraLAX] 17 gm PO DAILY #30 packet 06/13/17 [Rx] Saccharomyces Boulardii [Florastor] 250 mg PO BID #60 cap 06/13/17 [Rx] Patient Handouts: Adhesions, [id number], Small Bowel Obstruction, Easy-to- Read, Hypokalemia Referrals: Neetu Bryson MD [Primary Care Provider] - 06/17/17 8:00 am Star Franks MD [Physician] - 06/17/17 3:45 pm - Discharge Summary/Plan Comment DC Time >30 min.: Yes (45 min) - General Info Date of Service: 06/14/17 Admission Dx/Problem (Free Text: Admission Diagnosis/Problem Admission Diagnosis/Problem SBO [facility]. Functional Status: Reports: Pain Controlled, Tolerating Diet, Ambulating, Urinating - Review of Systems General: Reports: No Symptoms HEENT: Reports: No Symptoms Pulmonary: Reports: No Symptoms Cardiovascular: Reports: No Symptoms Gastrointestinal: Reports: No Symptoms. Denies: Abdominal Pain, Diarrhea, Nausea, Vomiting Genitourinary: Reports: No Symptoms Musculoskeletal: Reports: No Symptoms Skin: Reports: No Symptoms Neurological: Reports: No Symptoms Psychiatric: Reports: No Symptoms, Mood Lability (improved from time of admission) - Patient Data Vitals - Most Recent: Last Vital Signs Temp 97.5 F 06/14/17 03:12 Pulse 98 06/14/17 03:12 Resp 18 06/14/17 03:12 BP 129/62 06/14/17 03:12 Pulse Ox 97 06/14/17 03:12 Weight - Most Recent: 149 lb 1.6 oz I&O - Last 24 hours: Intake & Output 06/13/17 06/13/17 06/14/17 14:59 22:59 06:59 Intake Total 540 1020 750 Output Total 700 Balance 540 320 750 Lab Results - Last 24 hrs: Laboratory Results - last 24 hr 06/13/17 06/13/17 06/14/17 Range/Units 06:50 06:50 06:15 WBC 6.83 7.13 (3.98-10.04) K/mm3 RBC 3.40 L 3.30 L (3.98-5.22) M/mm3 Hgb 9.2 L 8.9 L (11.2-15.7) gm/L Hct 28.3 L 27.8 L (34.1-44.9) % MCV 83.2 84.2 (79.4-94.8) fl MCH 27.1 27.0 (25.6-32.2) pg MCHC 32.5 32.0 L (32.2-35.5) g/dl RDW Std Deviation 46.1 46.6 H (36.4-46.3) fL Plt Count 404 H 370 H (182-369) K/mm3 MPV 7.9 L 8.2 L (9.4-12.3) fl Neut % (Auto) 57.2 57.8 (34.0-71.1) % Lymph % (Auto) 23.9 21.9 (19.3-51.7) % Bowie % (Auto) 13.9 H 15.1 H (4.7-12.5) % Eos % (Auto) 3.4 3.8 (0.7-5.8) Baso % (Auto) 0.4 0.4 (0.1-1.2) % Neut # (Auto) 3.91 4.12 (1.56-6.13) K/mm3 Lymph # (Auto) 1.63 1.56 (1.18-3.74) K/mm3 Bowie # (Auto) 0.95 H 1.08 H (0.24-0.36) K/mm3 Eos # (Auto) 0.23 0.27 (0.04-0.36) K/mm3 Baso # (Auto) 0.03 0.03 (0.01-0.08) K/mm3 Sodium 134 L (136-145) mEq/L Potassium 4.2 (3.5-5.1) mEq/L Chloride 100 (98-107) mEq/L Carbon Dioxide 28 (21-32) mEq/L Anion Gap 10.2 (5-15) BUN 6 L (7-18) mg/dL Creatinine 0.8 (0.55-1.02) mg/dL Est Cr Clr Drug Dosing 65.61 mL/min Estimated GFR (MDRD) > 60 (>60) mL/min BUN/Creatinine Ratio 7.5 L (14-18) Glucose 97 (80-115) mg/dL Calcium 9.0 (8.5-10.1) mg/dL Magnesium 2.8 H (1.8-2.4) mg/dl Med Orders - Current: Current Medications Acetaminophen (Tylenol) 650 mg PO Q4H PRN PRN Reason: Pain (Mild 1-3)/fever Last Admin: 06/10/17 09:52 Dose: 650 mg Albuterol/Ipratropium (Duoneb 3.0-0.5 Mg/3 Ml) 3 ml NEB Q4H PRN PRN Reason: Shortness Of Breath/wheezing Amlodipine Besylate (Norvasc) 2.5 mg PO DAILY [facility] Last Admin: 06/13/17 09:32 Dose: 2.5 mg Atenolol (Tenormin) 25 mg PO DAILY [facility] Last Admin: 06/13/17 09:30 Dose: 25 mg Bisacodyl (Dulcolax) 5 mg PO DAILY PRN PRN Reason: Constipation Last Admin: 06/06/17 06:35 Dose: 5 mg Cephalexin (Keflex) 500 mg PO Q6HR [facility] Last Admin: 06/14/17 06:11 Dose: 500 mg Clozapine (Clozapine) 350 mg PO BEDTIME [facility] Last Admin: 06/13/17 21:12 Dose: 350 mg Clozapine (Clozapine) 200 mg PO 0700,1700 [facility] Last Admin: 06/13/17 17:20 Dose: 200 mg Docusate Sodium (Colace) 100 mg PO BID PRN PRN Reason: Constipation Enoxaparin Sodium (Lovenox) 40 mg SUBCUT DAILY [facility] Last Admin: 06/13/17 09:32 Dose: 40 mg Famotidine (Pepcid) 20 mg PO BID [facility] Last Admin: 06/13/17 21:12 Dose: 20 mg Latanoprost (Xalatan 0.005% Ophth Soln) 0 ml EYEBOTH BEDTIME [facility] Last Admin: 06/13/17 21:11 Dose: 1 drop Levothyroxine Sodium (Synthroid) 88 mcg PO ACBRK [facility] Last Admin: 06/14/17 06:11 Dose: 88 mcg Lorazepam (Ativan) 0.25 mg IVPUSH Q8H [facility] Last Admin: 06/14/17 01:08 Dose: 0.25 mg Miscellaneous Information (Remove Patch) 1 ea TRDERM Q72H [facility] Last Admin: 06/13/17 15:30 Dose: 1 ea Nystatin (Nystop) 2 gm TOP TID [facility] Stop: 06/18/17 21:01 Last Admin: 06/13/17 21:15 Dose: 1 applic Ondansetron HCl (Zofran Odt) 4 mg PO Q6H PRN PRN Reason: nausea, able to take PO Ondansetron HCl (Zofran) 4 mg IV Q4H PRN PRN Reason: Nausea/Vomiting Polyethylene Glycol (Miralax) 17 gm PO DAILY [facility] Last Admin: 06/13/17 09:29 Dose: 17 gm Saccharomyces Boulardii (Florastor) 250 mg PO BID [facility] Last Admin: 06/13/17 21:11 Dose: 250 mg Senna/Docusate Sodium (Senna Plus) 1 tab PO BID PRN PRN Reason: Constipation Last Admin: 06/06/17 06:35 Dose: 1 tab Simethicone (Simethicone) 80 mg PO QIDACANDBED [facility] Last Admin: 06/14/17 06:13 Dose: 80 mg Discontinued Medications Clozapine (Clozapine) 350 mg PO BEDTIME [facility] Last Admin: 06/05/17 16:08 Dose: Not Given Clozapine (Clozapine) 200 mg PO 0700,1700 [facility] Last Admin: 06/05/17 16:07 Dose: Not Given Clozapine (Clozapine) 350 mg PO ONETIME ONE Stop: 06/04/17 23:31 Last Admin: 06/04/17 23:35 Dose: 350 mg Famotidine (Pepcid) 20 mg IVPUSH BID [facility] Last Admin: 06/12/17 08:31 Dose: 20 mg Furosemide (Lasix) 10 mg IVPUSH NOW ONE Stop: 06/07/17 07:31 Last Admin: 06/07/17 10:17 Dose: Not Given Furosemide (Lasix) 10 mg IVPUSH NOW ONE Stop: 06/07/17 10:16 Last Admin: 06/07/17 10:16 Dose: 10 mg Sodium Chloride (Normal Saline) 1,000 mls @ 999 mls/hr IV ONETIME ONE Stop: 06/04/17 11:29 Last Admin: 06/04/17 10:49 Dose: 999 mls/hr Sodium Chloride (Normal Saline) 1,000 mls @ 999 mls/hr IV ONETIME ONE Stop: 06/04/17 14:22 Last Admin: 06/04/17 13:28 Dose: 999 mls/hr Sodium Chloride (Normal Saline) 1,000 mls @ 75 mls/hr IV ASDIRECTED [facility] Last Admin: 06/04/17 15:45 Dose: 75 mls/hr Premix 1 bag/ Magnesium (Sulfate) 50 mls @ 50 mls/hr IV ONETIME ONE Stop: 06/04/17 17:14 Last Admin: 06/04/17 17:26 Dose: 50 mls/hr Dextrose/Sodium Chloride (Dextrose 5%-Normal Saline) 1,000 mls @ 100 mls/hr IV ASDIRECTED [facility] Last Admin: 06/09/17 02:08 Dose: 100 mls/hr Fluconazole/Sodium Chloride (200 mg/ Premix) 100 mls @ 100 mls/hr IV ONETIME ONE Stop: 06/05/17 08:59 Last Admin: 06/05/17 09:27 Dose: Not Given Potassium Chloride 10 meq/ (Premix) 100 mls @ 100 mls/hr IV Q1H [facility] Stop: 06/05/17 11:44 Last Admin: 06/05/17 14:10 Dose: Not Given Potassium Chloride 10 meq/ (Premix) 100 mls @ 100 mls/hr IV Q1H [facility] Stop: 06/05/17 13:14 Last Admin: 06/05/17 15:05 Dose: 100 mls/hr Fluconazole/Sodium Chloride (200 mg/ Premix) 100 mls @ 100 mls/hr IV ONETIME ONE Stop: 06/05/17 14:59 Last Admin: 06/05/17 16:08 Dose: Not Given Fluconazole/Sodium Chloride (200 mg/ Premix) 100 mls @ 100 mls/hr IV ONETIME ONE Stop: 06/05/17 16:59 Last Admin: 06/05/17 16:40 Dose: 100 mls/hr Potassium Chloride 10 meq/ (Premix) 100 mls @ 100 mls/hr IV Q1H [facility] Stop: 06/06/17 14:14 Last Admin: 06/06/17 13:29 Dose: Not Given Potassium Chloride 10 meq/ (Premix) 100 mls @ 100 mls/hr IV Q1H [facility] Stop: 06/06/17 15:59 Last Admin: 06/06/17 19:52 Dose: 100 mls/hr Cefepime HCl 2 gm/ Premix 50 mls @ 100 mls/hr IV Q12H [facility] Stop: 06/09/17 12:01 Last Admin: 06/09/17 11:21 Dose: 100 mls/hr Potassium Chloride 10 meq/ (Premix) 100 mls @ 100 mls/hr IV Q1H [facility] Stop: 06/08/17 18:59 Last Admin: 06/08/17 19:32 Dose: 100 mls/hr Meropenem 500 mg/ Sodium (Chloride) 100 mls @ 200 mls/hr IV Q6H [facility] Stop: 06/11/17 13:01 Last Admin: 06/11/17 12:47 Dose: 200 mls/hr Potassium Chloride 10 meq/ (Premix) 100 mls @ 100 mls/hr IV Q1H [facility] Stop: 06/09/17 22:59 Potassium Chloride/Sodium Chloride (1/2 Ns With 20 Meq Kcl) 1,000 mls @ 75 mls/ hr IV ASDIRECTED [facility] Last Admin: 06/12/17 06:04 Dose: 75 mls/hr Potassium Chloride 10 meq/ (Premix) 100 mls @ 100 mls/hr IV Q1H [facility] Stop: 06/10/17 19:29 Last Admin: 06/10/17 19:05 Dose: 100 mls/hr Magnesium Sulfate 2 gm/ Premix 50 mls @ 25 mls/hr IV Q1H [facility] Stop: 06/12/17 21:29 Last Admin: 06/12/17 23:03 Dose: 25 mls/hr Influenza Virus Vaccine (Pharmacy To Dose - Influenza Vaccine) 1 each IM ONETIME ONE Stop: 06/04/17 15:09 Influenza Virus Vaccine (Flulaval Quad [id number]) 60 mcg IM .ONCE ONE Stop: 06/04/17 15:16 Lorazepam (Ativan) 0.5 mg PO TID [facility] Lorazepam (Ativan) 0.5 mg IVPUSH Q8H [facility] Last Admin: 06/05/17 03:00 Dose: 0.5 mg Lorazepam (Ativan) 0.25 mg IVPUSH Q8H [facility] Lorazepam (Ativan) 0.25 mg IVPUSH Q8H [facility] Last Admin: 06/06/17 02:51 Dose: Not Given Lorazepam (Ativan) 0.25 mg IVPUSH Q6H PRN PRN Reason: restlessness Last Admin: 06/06/17 10:15 Dose: 0.25 mg Magnesium Sulfate (Pharmacy To Dose - Magnesium Replacement) 1 dose .XX ASDIRECTED [facility] Metoclopramide HCl (Reglan) 5 mg IVPUSH Q8H [facility] Last Admin: 06/07/17 09:44 Dose: 5 mg Metoclopramide HCl (Reglan) 5 mg PO QIDACANDBED [facility] Last Admin: 06/13/17 18:27 Dose: Not Given Miscellaneous Information (Remove Patch) 1 ea TRDERM Q72H [facility] Ondansetron HCl (Zofran) 4 mg IVPUSH ONETIME ONE Stop: 06/04/17 10:30 Last Admin: 06/04/17 10:47 Dose: 4 mg Oral Electrolytes (Thermotabs) 1 each PO ONETIME ONE Stop: 06/12/17 23:01 Last Admin: 06/12/17 23:06 Dose: 1 each Pantoprazole Sodium (Protonix Iv) 40 mg IVPUSH Q12H [facility] Last Admin: 06/08/17 05:53 Dose: 40 mg Pneumococcal Polyvalent Vaccine (Pneumovax 23) 0.5 ml IM .ONCE ONE Stop: 06/04/17 15:09 Potassium Chloride (Pharmacy To Dose - Potassium Replacement) 1 dose .XX ASDIRECTED [facility] Potassium Chloride (Klor-Con M20) 40 meq PO ONETIME ONE Stop: 06/05/17 08:01 Potassium Chloride (Klor-Con M20) 20 meq PO DAILY [facility] Potassium Chloride (Klor-Con M20) 20 meq PO DAILY [facility] Stop: 06/11/17 09:01 Last Admin: 06/11/17 09:54 Dose: 20 meq Scopolamine (Scopolamine) 1 each TRDERM Q72H PRN PRN Reason: Nausea/Vomiting Last Admin: 06/10/17 15:46 Dose: 1 each Simethicone (Simethicone) 80 mg PO QIDACANDBED [facility] - Exam Quality Assessment: Reports: DVT Prophylaxis General: Reports: Alert, Cooperative, No Acute Distress HEENT: Reports: Pupils Equal, EOMI, Mucous Membr. Moist/[place] Neck: Reports: Supple Lungs: Reports: Clear to Auscultation, Normal Respiratory Effort Cardiovascular: Reports: Regular Rate, Regular Rhythm GI/Abdominal Exam: Normal Bowel Sounds, Soft, Non-Tender (Female) Exam: Deferred Rectal (Female) Exam: Deferred Extremities: Normal Inspection, No Pedal Edema, Normal Capillary Refill Neurological: Reports: No New Focal Deficit Psy/Mental Status: Reports: Alert, Normal Affect, Normal Mood, Labile Mood ( improved) *Q Meaningful Use (DIS) - VTE *Q VTE Criteria *Q: - Stroke *Q Stroke Criteria *Q: - AMI *Q AMI Criteria *Q:
[2017-06-14] MEDS: Saccharomyces Boulardii (Probiotic) 250 MG Cap PO SCH (10:25)
[2017-06-14] MEDS: Enoxaparin 40 MG/0.4 ML Syringe SUBCUT SCH (10:25)
[2017-06-14] MEDS: Famotidine 20 MG Tab PO SCH (10:26)
[2017-06-14] MEDS: Atenolol 25 MG Tab PO SCH (10:26)
[2017-06-14] MEDS: Polyethylene Glycol 3350 Powder 17 GM Packet PO SCH (10:26)
[2017-06-14] MEDS: amLODIPine 2.5 MG Tab PO SCH (10:26)
[2017-06-14] MEDS: Nystatin Topical Powder 15 GM Bottle TOP SCH (10:28)
[2017-06-14] MEDS: cloZAPine 100 MG Tab PO SCH (10:40)
[2017-06-14 12:37] VITALS: BP 124/75
== END 2017-06-14 15:05 | disposition home or self-care (01) | DRG 389 ==
LOC: JD.ED 09:22 → MERGE 09:22 → JD.MS 14:04 → UNDOADMIN 14:04 → JD.MS 14:07
PROVIDERS: ADMIT Internal Medicine; ATTEND Internal Medicine
PROC: 0D9670Z Drainage of Stomach with Drainage Device, Via Natural or Artificial Opening (ICD-10-PCS; principal; 2017-06-04)
DX: K56.609 Unspecified intestinal obstruction, unspecified as to partial versus complete obstruction (principal); F20.0 Paranoid schizophrenia; L30.8 Other specified dermatitis; N17.9 Acute kidney failure, unspecified; E87.1 Hypo-osmolality and hyponatremia; I95.1 Orthostatic hypotension; E86.0 Dehydration; I10 Essential (primary) hypertension; E78.00 Pure hypercholesterolemia, unspecified; D72.829 Elevated white blood cell count, unspecified; K52.9 Noninfective gastroenteritis and colitis, unspecified; B37.2 Candidiasis of skin and nail; E78.5 Hyperlipidemia, unspecified; K21.9 Gastro-esophageal reflux disease without esophagitis; G40.909 Epilepsy, unspecified, not intractable, without status epilepticus; F41.9 Anxiety disorder, unspecified; E03.9 Hypothyroidism, unspecified; D64.9 Anemia, unspecified; H54.7 Unspecified visual loss; Z87.891 Personal history of nicotine dependence; Z88.8 Allergy status to other drugs, medicaments and biological substances; Z79.899 Other long term (current) drug therapy; R53.1 Weakness; R73.9 Hyperglycemia, unspecified; I12.9 Hypertensive chronic kidney disease with stage 1 through stage 4 chronic kidney disease, or unspecified chronic kidney disease; N18.9 Chronic kidney disease, unspecified; R51 Headache; S50.312A Abrasion of left elbow, initial encounter; W18.39XA Other fall on same level, initial encounter; Y92.231 Patient bathroom in hospital as the place of occurrence of the external cause; E87.6 Hypokalemia
CPT/HCPCS: 36415; 71046; 80053; 81001; 81025; 83036; 83605; 83735; 84484; 85025; 93005; 96361; 96374; 99285; J2405; J7040 ×2; P9612; 70450; 70450-26; 71045; 71045-26; 74019; 74019-26; 80048; 82272; 82607; 82746; 82962; 83540; 84443; 84466; 86140; 87070; 87077; 87186; 93010; 97110-GP; 97116-GP; 97162-GP; 97166-GO; 97530-GP; A9270-GY; C9113; J0692; J1450; J1650; J2060; J2185; J2765; J3475; J3480; J7030; J7042

== ENCOUNTER 2017-08-27 14:19 | Emergency (ER) | payer MEDICARE, MEDICAID ==
[2017-08-27 14:45] VITALS: BP 123/62
--- NOTE | 2017-08-27 15:30 | EDM.PDOC ---
ED HPI GENERAL MEDICAL PROBLEM - General Chief Complaint: Skin Complaint Stated Complaint: RASH ALL OVER BODY Time Seen by Provider: 08/27/17 14:46 Source of Information: Reports: Patient, RN Notes Reviewed Generalized Pain Score (Numeric/FACES): 10 - Related Data Allergies Allergy/AdvReac Type Severity Reaction Status Date / Time carbamazepine [From Tegretol] Allergy Cannot Verified 03/12/17 13:51 Remember ezetimibe [From Zetia] Allergy Cannot Verified 03/12/17 13:51 Remember haloperidol AdvReac Seizures Verified 03/12/17 13:51 trifluoperazine HCl AdvReac Seizures Verified 03/12/17 13:51 [From Stelazine] Home Meds: Home Meds Latanoprost 1 drop EYEBOTH BEDTIME 03/12/17 [History] cloZAPine [Clozaril] 350 mg PO BEDTIME 03/12/17 [History] Atenolol [Tenormin] 25 mg PO DAILY 06/04/17 [History] LORazepam [Ativan] 0.5 mg PO TID 06/04/17 [History] Levothyroxine [Synthroid] 88 mcg PO DAILY 06/04/17 [History] Pantoprazole Sodium [Protonix] 40 mg PO BID 06/04/17 [History] Simvastatin [Zocor] 10 mg PO BEDTIME 06/04/17 [History] amLODIPine [Norvasc] 2.5 mg PO DAILY 06/04/17 [History] cloZAPine [Clozapine] 200 mg PO BID 06/04/17 [History] Polyethylene Glycol 3350 [MiraLAX] 17 gm PO DAILY #30 packet 06/13/17 [Rx] Saccharomyces Boulardii [Florastor] 250 mg PO BID #60 cap 06/13/17 [Rx] Cephalexin 500 mg PO TID #30 capsule 08/27/17 [Rx] Fluconazole [Diflucan] 200 mg PO DAILY #14 tablet 08/27/17 [Rx] Past Medical History HEENT History: Reports: Impaired Vision, Other (See Below) Other HEENT History: impacted cerumen Cardiovascular History: Reports: High Cholesterol, Hypertension Respiratory History: Reports: None Gastrointestinal History: Reports: Bowel Obstruction, Chronic Constipation, Chronic Diarrhea, GERD, GI Bleed Genitourinary History: Reports: Other (See Below) Other Genitourinary History: UTI GEOTECHNICIAN History: Reports: None Musculoskeletal History: Reports: None Neurological History: Reports: Seizure Other Neuro History: bilateral partial frontal lobectomy. Psychiatric History: Reports: Anxiety, Depression, Schizophrenia Other Psychiatric History: Patient states "in [place] for 20 Endocrine/Metabolic History: Reports: Hypothyroidism Hematologic History: Reports: Anemia Other Hematologic History: Low magnesium Immunologic History: Reports: None Oncologic (Cancer) History: Reports: None Dermatologic History: Reports: Other (See Below), Psoriasis Other Dermatologic History: "chronic pruritic rash" - Past Surgical History Head Surgeries/Procedures: Reports: Other (See Below) HEENT Surgical History: Reports: None Female Surgical History: Reports: Breast Implant Musculoskeletal Surgical History: Reports: None Oncologic Surgical History: Reports: None Social & Family History - Family History Family Medical History: Noncontributory - Tobacco Use Smoking Status *Q: Former Smoker Years of Tobacco use: 11 Packs/Tins Daily: 3 Used Tobacco, but Quit: Yes Month/Year Tobacco Last Used: 7 years ago Second Hand Smoke Exposure: No - Caffeine Use Caffeine Use: Reports: Soda - Alcohol Use Days Per Week of Alcohol Use: 0 Number of Drinks Per Day: 0 Total Drinks Per Week: 0 - Recreational Drug Use Recreational Drug Use: No - Living Situation & Occupation Living situation: Reports: Single, with Family (Mother) Occupation: Unemployed ED ROS GENERAL - Review of Systems Review Of Systems: See Below Constitutional: Denies: Fever, Chills HEENT: Reports: No Symptoms Respiratory: Denies: Shortness of Breath Cardiovascular: Denies: Chest Pain GI/Abdominal: Denies: Abdominal Pain, Nausea, Vomiting Musculoskeletal: Reports: No Symptoms ED EXAM, SKIN/RASH Exam: See Below General Appearance: Alert, No Apparent Distress Eye Exam: Bilateral Eye: PERRL Nose: Normal Inspection Throat/Mouth: Normal Inspection, Normal Oropharynx Head: No: Facial Swelling Neck: Supple, Full Range of Motion Respiratory/Chest: No Respiratory Distress, Lungs Clear Cardiovascular: Regular Rate, Rhythm GI/Abdominal: Soft, Non-Tender Back Exam: Normal Inspection Extremities: Normal Inspection, Normal Range of Motion Neurological: Alert, No Motor/Sensory Deficits Skin: Warm, Dry, Normal Color, Rash (scattered patchy areas of rash bilat face, with increased erythema, inflamation R face, some areas of crusting R lower face , areas of superfiscial skin sloughing R neck, R upper abd and R lower chest under R breast, areas of crusting R lateral neck, there is a patch of rash L dorsal proximal forearm, upper and lower extrem otherwise mostly clear, back is clear) Course - Vital Signs Last Recorded V/S: Last Vital Signs Temp 96.8 F 08/27/17 14:44 Pulse 69 08/27/17 14:44 Resp 20 08/27/17 14:44 BP 123/62 08/27/17 14:44 Pulse Ox 100 08/27/17 14:44 Departure - Departure Time of Disposition: 15:58 Disposition: Home, Self-Care 01 Condition: Fair Clinical Impression: Impetigo, Skin rash - Discharge Information Prescriptions: Cephalexin 500 mg PO TID #30 capsule Fluconazole [Diflucan] 200 mg PO DAILY #14 tablet Instructions: Rash, [id number], Impetigo, Adult Referrals: Neetu Bryson MD [Primary Care Provider] - Forms: ED Department Discharge Additional Instructions: Cephalexin antibiotic 500 mg 3 times daily for 10 days, Diflucan 200 mg daily for 2 weeks. We have arranged for an appointment to see Dr. Jason velasquez September 10, 9:45 a.m. central standard time, 845 male in time. His office will be contacting your guardian tomorrow morning to discuss possibility of more emergent type appointment. I do recommend trying to see Dr. Jason velasquez this week if at all possible. Culture of the area of weeping in scaling right face and neck has been obtained at this time, will take 24-48 hours to grow out.
== END 2017-08-27 16:15 | disposition home or self-care (01) ==
LOC: JD.ED 14:19
DX: L01.00 Impetigo, unspecified (principal); R21 Rash and other nonspecific skin eruption; E78.00 Pure hypercholesterolemia, unspecified; E03.9 Hypothyroidism, unspecified; Z88.8 Allergy status to other drugs, medicaments and biological substances; Z79.899 Other long term (current) drug therapy; Z87.891 Personal history of nicotine dependence
CPT/HCPCS: 87075; 87205; 99283

== ENCOUNTER 2017-11-15 15:13 | Inpatient (IN) | payer MEDICARE, MEDICAID ==
[2017-11-15] MEDS ORDERED: Sodium Chloride 0.9% 10 ML Syringe FLUSH PRN (16:04)
--- NOTE | 2017-11-15 16:05 | EDM.PDOC ---
ED HPI GENERAL MEDICAL PROBLEM - General Chief Complaint: Skin Complaint Stated Complaint: STAPH INFECTION Time Seen by Provider: 11/15/17 15:58 Source of Information: Reports: Patient, Family History Limitations: Reports: No Limitations - History of Present Illness INITIAL COMMENTS - FREE TEXT/NARRATIVE: 62-year-old female presents to the ED with a chronic rash which is spreading and getting worse in terms of bruising and weeping over the last several weeks. Patient is schizophrenic and lives with her elderly mother who is dying from cancer at present time. She therefore does not take very good care of herself in particular he does not do really any bathing etc. Apparently her appetite is good. Bowel function is normal. His heart get a handle on how long she's had a rash but it's been longer than 4 months. Apparently she has been referred to dermatology and Dr. Dudley has performed a biopsy of her neck and her umbilicus. Diagnosed with a strep infection. He was thinking that she might have lupus of the skin. It's unclear how compliant she is with her medications. Present she is oriented to person place and time and quite cooperative. Onset: Unknown/Unsure (She had the rash at least in June and likely been going on longer so this is 4 or 5 months.) Duration: Chronic, Getting Worse (Especially the right side of her neck and oozing from her right ear) Location: Reports: Head, Face, Neck (Right willis-lateral face involving her ear. Right anterior lateral neck and nape of neck.), Chest (Particularly under the breasts i.e. intertrigo.), Abdomen (Umbilicus has a chronic erythematous rash which is red and inflamed.), Pelvis (Both groins have severe intertrigo with breakdown of skin and bruising. Skin in the right inguinal fold is Demarcus from infection. No excoriations evident.), Other (But talks and go cleft.). Denies: Back, Lower Extremity, Left, Lower Extremity, Right Quality: Reports: Burning Severity: Severe Improves with: Reports: None (She apparently was prescribed a Lotrimin cream by Dr. Gomez answer which is not helping.) Worsens with: Reports: None Context: Denies: Activity, Exercise, Lifting, Sick Contact, Trauma, Other Associated Symptoms: Denies: No Other Symptoms, Confusion, Chest Pain, Cough, cough w sputum, Diaphoresis, Fever/Chills, Headaches, Loss of Appetite, Malaise , Nausea/Vomiting, Rash, Seizure, Shortness of Breath, Syncope, Weakness Treatments TRACK OILER: Reports: Other (see below) (Takes only her prescribed medications.) - Related Data Allergies Allergy/AdvReac Type Severity Reaction Status Date / Time carbamazepine [From Tegretol] Allergy Cannot Verified 03/12/17 13:51 Remember ezetimibe [From Zetia] Allergy Cannot Verified 03/12/17 13:51 Remember haloperidol AdvReac Seizures Verified 03/12/17 13:51 trifluoperazine HCl AdvReac Seizures Verified 03/12/17 13:51 [From Stelazine] Home Meds: Home Meds Latanoprost 1 drop EYEBOTH BEDTIME 03/12/17 [History] cloZAPine [Clozaril] 350 mg PO BEDTIME 03/12/17 [History] Atenolol [Tenormin] 25 mg PO DAILY 06/04/17 [History] LORazepam [Ativan] 0.5 mg PO TID 06/04/17 [History] Levothyroxine [Synthroid] 88 mcg PO DAILY 06/04/17 [History] Pantoprazole Sodium [Protonix] 40 mg PO DAILY 06/04/17 [History] Simvastatin [Zocor] 10 mg PO BEDTIME 06/04/17 [History] amLODIPine [Norvasc] 2.5 mg PO DAILY 06/04/17 [History] cloZAPine [Clozapine] 200 mg PO ASDIRECTED 06/04/17 [History] Saccharomyces Boulardii [Florastor] 250 mg PO BID #60 cap 06/13/17 [Rx] Cephalexin 500 mg PO QID 11/15/17 [History] Clotrimazole [Lotrimin AF] 1 applic TOP BID 11/15/17 [History] Iron Aspgly&Ps/C/B12/Fa/Ca/Suc [Ferrex 150 Forte Plus] 150 mg PO DAILY 11/15/17 [History] Triamcinolone Acetonide 1 applic TOP TID 11/15/17 [History] cloZAPine [Clozaril] 200 mg PO DAILY 11/15/17 [History] Past Medical History HEENT History: Reports: Glaucoma (Apparently has been on Latanoprost eyedrops.- 1 drop to each eye in the evening daily. 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 Psychiatric History: Reports: Anxiety, Depression, Schizophrenia Other Psychiatric History: Patient states "in [place], [place] for 20 Endocrine/Metabolic History: Reports: Hypothyroidism Hematologic History: Reports: Anemia Other Hematologic History: Low magnesium Immunologic History: Reports: None Oncologic (Cancer) History: Reports: None Dermatologic History: Reports: Other (See Below), Psoriasis Other Dermatologic History: "chronic pruritic rash" - Past Surgical History Head Surgeries/Procedures: Reports: Other (See Below) HEENT Surgical History: Reports: None Female Surgical History: Reports: Breast Implant Musculoskeletal Surgical History: Reports: None Oncologic Surgical History: Reports: None Social & Family History - Family History Family Medical History: Noncontributory - Tobacco Use Smoking Status *Q: Former Smoker Used Tobacco, but Quit: Yes Month/Year Tobacco Last Used: 14 yr - Caffeine Use Caffeine Use: Reports: Coffee - Recreational Drug Use Recreational Drug Use: No - Living Situation & Occupation Living situation: Reports: Single, with Family (Mother) Occupation: Disabled (Due to mental illness.) Social History Comment: Currently residing with her elderly mother who is dying from cancer. It appears that she is close to the end of her life. Therefore concerns have arisen about long-term placement after her mother passes. Whether[facility] can come into the home to ensure that she gets medications or she requires placement elsewhere is a bit of a dilemma. ED ROS GENERAL - Review of Systems Review Of Systems: See Below Constitutional: Reports: Weight Gain. Denies: Fever, Chills, Malaise, Weakness , Fatigue, Decreased Appetite, Weight Loss HEENT: Reports: Ear Pain (Right ear hurts where the rash is present and losing.) . Denies: Eye Discharge, Eye Pain, Glasses, Hearing Loss, Nosebleed, Nose Pain , Rhinitis, Sinus Problem, Throat Pain, Throat Swelling, Vertigo, Other Respiratory: Denies: Pleuritic Chest Pain, Cough Cardiovascular: Reports: Dyspnea on Exertion, Edema (Ysabel been noted to be swelling more the last 6 weeks. Her diet isn't the best. Tends to be low protein.), Palpitations (Sometimes. Am times or palpitations.). Denies: Chest Pain, Blood Pressure Problem, Claudication, Lightheadedness, Orthopnea Endocrine: Reports: Fatigue, Other (Not known to be diabetic. Drinks a lot of diet pop.) GI/Abdominal: Reports: Distension (Feels bloated. I believe she probably is putting on some weight.). Denies: Abdominal Pain, Anorexia, Black Stool, Bloody Stool, Constipation, Diarrhea, Decreased Appetite, Difficulty Swallowing , Flatus, Hematemesis, Hematochezia, Melena, Mucous in Stool, Nausea, Stool Incontinence, Vomiting, Other : Reports: Frequency Musculoskeletal: Reports: No Symptoms Skin: Reports: Erythema (Patient has 2 types of rashes going on. These are quite severe. It appears that she has a chronic impetigo involving her right willis-face particularly the corner of her right lip that spreads across the right facial cheek involves her entire right ear and the surrounding scalp posterior and superior to the ear. It then travels down and involves the anterior lateral neck and across her right anterior lateral shoulder. Several of these areas particularly the ear in the anterior shoulder where her bra strap crosses are losing serous material as the skin is broken down quite severely. Similarly she has severe intertrigo under her breasts which will be primarily fungal. She has a severe erythema around her umbilicus which measures nearly 4.5 cm in diameter. It is not losing any material. She has had a biopsy from this area by Dr. Sunshine sheet rock installation helper which grew out a strep infection. Some clear how long ago this was. In the groins she has severe intertrigo with breakdown of the skin and serous oozing particularly on the right side. This too is primarily tinea crura infection with secondary bacterial infection. There is a strong odor to the areas that are oozing. Her lower extremities are spared. Her upper extremities for the most part are spared as well..) Neurological: Reports: Other (Apparently she is resistant to care in terms of showering or bathing and walking or doing any form of exercise.). Denies: Confusion, Dizziness, Headache, Numbness, Paresthesia, Pre-Existing Deficit, Seizure, Syncope, Tingling, Tremors, Trouble Speaking, Difficulty Walking, Weakness, Change in Speech, Gait Disturbance Psychiatric: Reports: Other (At this time I find a quite cooperative. She is known to be schizophrenic but appears to be well controlled on current antipsychotic treatment.) Hematologic/Lymphatic: Reports: No Symptoms Immunologic: Reports: No Symptoms ED EXAM, SKIN/RASH Exam: See Below Exam Limited By: No Limitations General Appearance: Alert, WD/WN, No Apparent Distress, Other (Quite cooperative although she is known to be chronically schizophrenic. She appears to be well-controlled with current medications. Just says she has been compliant.) Eye Exam: Bilateral Eye: Other (Eyelid syndrome medial canthi have crusts in them as well compatible with infection. But conjunctiva themselves only minimally injected but are quite actually pallid.) Ears: Other (The tympanic membrane is normal. The external ear is involved in an impetigo rash which is losing serous material entirely ears erythematous with skin breakdown. The tissue above the ear and scalp is involved in the rash. The rash continues to involve the right willis-face and corner of her right lip with a cross crusty lesion at the corner of her lip compatible with impetigo. The rash then spread across the anterior lateral neck to Amanda right shoulder with losing where her bra strap crosses the shoulder. I'll order from this losing material. Which is mostly serous. His skin is severely erythematous and all of the above areas as described. The nape of her neck is mildly involved. ) Nose: Normal Inspection Throat/Mouth: Normal Inspection, Other (Dentition is in need of care.) Head: Atraumatic, Normocephalic, Facial Swelling (Right hemifacial swelling with evidence of impetigo particular the corner of her right lip.), Facial Tenderness (Mild right willis-face). No: Sinus Tenderness Neck: Supple, Full Range of Motion, Lymphadenopathy (R) (Mild submandibular adenopathy mild submandibular adenopathy), Tender Lateral, Other (As described above her entire right willis-neck in terms of zone 3 and posterior lateral neck are involved in this rash that starts on her face involves her right ear her right scalp slightly nape of neck and then spreads down across her right shoulder is evident. Unrestricted range of motion of her neck. Minimal adenopathy of the submandibular gland.). No: Lymphadenopathy (L) Respiratory/Chest: No Respiratory Distress, Lungs Clear, Normal Breath Sounds, Chest Non-Tender Cardiovascular: Normal Peripheral Pulses, Regular Rate, Rhythm, No Edema, No Gallop, No Murmur, No Rub Peripheral Pulses: 2+: Posterior Tibial (L), Posterior Tibial (R), Dorsalis Pedis (L), Dorsalis Pedis (R) GI/Abdominal: Normal Bowel Sounds, Soft, Non-Tender, No Organomegaly, Other ( She has a skin rash involving her umbilicus. It is erythematous and partially 4.5 cm in diameter. Appears to be a likely tinea infection.) Rectal (Female) Exam: Other (Patient is not able to care for herself well. There is a good deal of stool surrounding the perianal area.) Back Exam: Normal Inspection, Full Range of Motion, Other (No skin lesions involving her back.). No: CVA Tenderness (L), CVA Tenderness (R) Extremities: Normal Inspection, Normal Range of Motion, Non-Tender, No Pedal Edema, Other (Rash and also her right superior shoulder.) Neurological: Alert, Oriented, CN II-XII Intact, Normal Cognition, Normal Gait, No Motor/Sensory Deficits Psychiatric: Normal Affect, Normal Mood Skin: Warm, Other (The skin infection is the primary reason for coming to the hospital. He appears to be a combination of widespread tinea infection involving particularly the groins the undersurfaces of both breasts and likely a component of her infection of her face and neck. There is also a component of impetigo involving her right willis-face right ear and right shoulder with bruising. In her groins the inflammation is severe enough to have broken the skin down to be oozing serous material. This is a severe intertrigo. Primarily likely a tinea infection with candidiasis with secondary bacterial infection with either strep or staph. Cultures were obtained from this area her right shoulder and her right ear.) Location, Skin: Head, Face, Neck, Chest, Abdomen (Undersurface of both breasts. I.e. severe intertrigo. Lesion at the umbilicus. So both inguinal folds have infection.). No: Upper Extremity, Right, Upper Extremity, Left, Lower Extremity , Right, Lower Extremity, Left, Genital, Palms, Soles, Axillary Characteristics: Macular, Other (Serous oozing with strong order.) Associated features: Warmth, Tenderness, Inflammation, Crusting, Weeping ( Lesion corner of her right lip suggest impetigo with: Crust. Weeping from particular her right ear right shoulder and right groin. This is where the cultures are obtained from.) EKG INTERPRETATION EKG Date: 11/15/17 Time: 16:20 Rhythm: NSR Rate (Beats/Min): 70 [place]: LAD-Left [place] Deviation P-Wave: Enlarged (. Consider right atrial hypertrophy and swell.) QRS: Other (There is early R-wave transition with poor R-wave progression consider right ventricular hypertrophy versus septal hypertrophy.) QT: Prolonged EKG Interpretation Comments: Borderline ECG Course - Vital Signs Last Recorded V/S: Last Vital Signs Temp 36.4 C 11/15/17 15:37 Pulse 75 11/15/17 15:37 Resp 20 11/15/17 15:37 BP 115/50 L 11/15/17 15:37 Pulse Ox 99 11/15/17 15:37 - Orders/Labs/Meds Orders: Active Orders 24 hr Category Date Time Status EKG Documentation Completion [RC] STAT Care 11/15/17 16:04 Active Insert Caro Catheter [Insert Urinary Catheter] [OM.PC] Care 11/15/17 16:40 Ordered Stat Peripheral IV Care [RC] . DIRECTED Care 11/15/17 16:05 Active Urinary Catheter Assessment [RC] ASDIRECTED Care 11/15/17 16:40 Active CULTURE EAR [RM] Stat Lab 11/15/17 16:55 Received CULTURE MRSA [RM] Stat Lab 11/15/17 16:00 Received CULTURE WOUND [RM] Stat Lab 11/15/17 16:00 Received CULTURE WOUND [RM] Stat Lab 11/15/17 16:00 Received OSMOLALITY,SERUM [CHEM] Stat Lab 11/15/17 18:09 Received URINALYSIS W/MICROSCOPIC [UA W/MICROSCOPIC] [URIN] Stat Lab 11/15/17 16:45 Ordered Doxycycline [Vibramycin] Med 11/15/17 18:46 Once 200 mg PO ONETIME ONE Sodium Chloride 0.9% [Saline Flush] Med 11/15/17 16:04 Active 10 ml FLUSH ASDIRECTED PRN cefTRIAXone [Rocephin] 2 gm Med 11/15/17 16:45 Active Sodium Chloride 0.9% [Normal Saline] 100 ml IV Q24H Peripheral IV Insertion Adult [OM.PC] Stat Oth 11/15/17 16:05 Ordered Medication Orders Ceftriaxone Sodium 2 gm/ (Sodium Chloride) 100 mls @ 100 mls/hr IV Q24H [facility] Last Admin: 11/15/17 16:55 Dose: 100 mls/hr Sodium Chloride (Saline Flush) 10 ml FLUSH ASDIRECTED PRN PRN Reason: Keep Vein Open Last Admin: 11/15/17 16:35 Dose: 10 ml Labs: Laboratory Tests 11/15/17 11/15/17 11/15/17 Range/Units 16:45 17:00 17:00 WBC 11.49 H (3.98-10.04) K/mm3 RBC 3.43 L (3.98-5.22) M/mm3 Hgb 9.0 L (11.2-15.7) gm/L Hct 27.9 L (34.1-44.9) % MCV 81.3 (79.4-94.8) fl MCH 26.2 (25.6-32.2) pg MCHC 32.3 (32.2-35.5) g/dl RDW Std Deviation 49.9 H (36.4-46.3) fL Plt Count 405 H (182-369) K/mm3 MPV 8.0 L (9.4-12.3) fl Neutrophils % (Manual) 72 H (40-60) % Band Neutrophils % 0 (0-10) % Lymphocytes % (Manual) 17 L (20-40) % Atypical Lymphs % 0 % Monocytes % (Manual) 4 (2-10) % Eosinophils % (Manual) 6 H (0.7-5.8) % Basophils % (Manual) 1 (0.1-1.2) Platelet Estimate Adequate Plt Morphology Comment Normal Hypochromasia 1+ slight Anisocytosis 1+ slight RBC Morph Comment Not Reportable ESR (0-20) mm/hr Sodium 127 L (136-145) mEq/L Potassium 4.0 (3.5-5.1) mEq/L Chloride 94 L (98-107) mEq/L Carbon Dioxide 29 (21-32) mEq/L Anion Gap 8.0 (5-15) BUN 9 (7-18) mg/dL Creatinine 1.0 (0.55-1.02) mg/dL Est Cr Clr Drug Dosing 52.49 mL/min Estimated GFR (MDRD) 56 (>60) mL/min BUN/Creatinine Ratio 9.0 L (14-18) Glucose 126 H (80-115) mg/dL Calcium 7.6 L (8.5-10.1) mg/dL Magnesium 2.0 (1.8-2.4) mg/dl Total Bilirubin 0.3 (0.2-1.0) mg/dL AST 15 (15-37) U/L ALT 19 (14-59) U/L Alkaline Phosphatase 80 (46-116) U/L C-Reactive Protein 2.5 H* (<1.0) mg/dL NT-Pro-B Natriuret Pep (0-125) pg/mL Total Protein 5.6 L (6.4-8.2) g/dl Albumin 2.3 L (3.4-5.0) g/dl Globulin 3.3 gm/dL Albumin/Globulin Ratio 0.7 L (1-2) TSH 3rd Generation (0.358-3.74) uIU/mL Urine Color Yellow (Yellow) Urine Appearance Slt cloudy H (Clear) Urine pH 6.0 (5.0-8.0) Ur Specific [place] 1.015 (1.005-1.030) Urine Protein 1+ H (Negative) Urine Glucose (UA) Trace H (Negative) Urine Ketones Negative (Negative) Urine Occult Blood Negative (Negative) Urine Nitrite Negative (Negative) Urine Bilirubin Negative (Negative) Urine Urobilinogen 0.2 (0.2-1.0) Ur Leukocyte Esterase Negative (Negative) Urine RBC Not seen (0-5) /hpf Urine WBC 0-5 (0-5) /hpf Ur Epithelial Cells 0-5 (0-5) /hpf Urine Bacteria Not seen (FEW) /hpf Urine Mucus Not seen (FEW) /hpf 11/15/17 11/15/17 11/15/17 Range/Units 17:00 17:00 17:00 WBC (3.98-10.04) K/mm3 RBC (3.98-5.22) M/mm3 Hgb (11.2-15.7) gm/L Hct (34.1-44.9) % MCV (79.4-94.8) fl MCH (25.6-32.2) pg MCHC (32.2-35.5) g/dl RDW Std Deviation (36.4-46.3) fL Plt Count (182-369) K/mm3 MPV (9.4-12.3) fl Neutrophils % (Manual) (40-60) % Band Neutrophils % (0-10) % Lymphocytes % (Manual) (20-40) % Atypical Lymphs % % Monocytes % (Manual) (2-10) % Eosinophils % (Manual) (0.7-5.8) % Basophils % (Manual) (0.1-1.2) Platelet Estimate Plt Morphology Comment Hypochromasia Anisocytosis RBC Morph Comment ESR 34 H (0-20) mm/hr Sodium (136-145) mEq/L Potassium (3.5-5.1) mEq/L Chloride (98-107) mEq/L Carbon Dioxide (21-32) mEq/L Anion Gap (5-15) BUN (7-18) mg/dL Creatinine (0.55-1.02) mg/dL Est Cr Clr Drug Dosing mL/min Estimated GFR (MDRD) (>60) mL/min BUN/Creatinine Ratio (14-18) Glucose (80-115) mg/dL Calcium (8.5-10.1) mg/dL Magnesium (1.8-2.4) mg/dl Total Bilirubin (0.2-1.0) mg/dL AST (15-37) U/L ALT (14-59) U/L Alkaline Phosphatase (46-116) U/L C-Reactive Protein (<1.0) mg/dL NT-Pro-B Natriuret Pep 425 H (0-125) pg/mL Total Protein (6.4-8.2) g/dl Albumin (3.4-5.0) g/dl Globulin gm/dL Albumin/Globulin Ratio (1-2) TSH 3rd Generation 1.980 (0.358-3.74) uIU/mL Urine Color (Yellow) Urine Appearance (Clear) Urine pH (5.0-8.0) Ur Specific [place] (1.005-1.030) Urine Protein (Negative) Urine Glucose (UA) (Negative) Urine Ketones (Negative) Urine Occult Blood (Negative) Urine Nitrite (Negative) Urine Bilirubin (Negative) Urine Urobilinogen (0.2-1.0) Ur Leukocyte Esterase (Negative) Urine RBC (0-5) /hpf Urine WBC (0-5) /hpf Ur Epithelial Cells (0-5) /hpf Urine Bacteria (FEW) /hpf Urine Mucus (FEW) /hpf Meds: Medications Generic Name Dose Route Start Last Admin Trade Name Freq PRN Reason Stop Dose Admin Ceftriaxone Sodium 2 gm/ 100 mls @ 100 mls/hr 11/15/17 16:45 11/15/17 16:55 Sodium Chloride IV 100 mls/hr Q24H NAEL Administration Sodium Chloride 10 ml 11/15/17 16:04 11/15/17 16:35 Saline Flush FLUSH 10 ml ASDIRECTED PRN Administration Keep Vein Open - Radiology Interpretation Free Text/Narrative:: 62-year-old female with mental health issues chronically due to schizophrenia presents to the ED with a skin rash of greater than 4 months duration. It is getting worse and this is what precipitated the visit to the ED. He has a chronic right hemifacial skin rash that has the appearance of impetigo. It seems to start at the corner of her right mouth spread across the right willis- face and involves the ear and the tissue of the scalp behind the ear and superior to the ear and the nape of the neck. The rash that spreads across the entire anterior lateral aspect of her right neck and across her right shoulder. There is bruising and skin breakdown across her shoulder at the site of her bra strap. There is a strong odor to this serous material suggesting bacterial infection. She also has significant intertrigo under both breasts. This appears to be tinea infection probable primarily. She has a skin rash involving her umbilicus which is chronic erythematous and about 4.5 cm in diameter. No oozing from this area. In both groins there is tremendous breakdown of skin from probably primary tinea infection or candidiasis with secondary infection. Cultures were obtained from the right groin the right shoulder and right ear. The areas that were draining serous material. Apparently she has seen a sheet rock installation helper it's unclear when. He was concerned that she may be developing dermal lupus. Apparently this was not identified. It appears that the biopsy suggested a chronic bacterial infection and suggested streptococcus as the possible etiology. It's unclear if she's been treated with course of antibiotics. She reports that Dr. Sunshine the sheet rock installation helper did give her Lotrimin cream and powder. At this point time she's not quite capable of caring for self and noncompliant with treatment plan. It is my presumption that she will need hospital admission for IV antibiotic therapy introduction to start to bring this infection under control and my suggestion would be to start her on Lamisil( Terbenafine) tablets 250 mg once daily probably for a period of 3 weeks to bring the tinea infection under control. I would also suggest doxycycline 100 mg twice daily for a period of 2 weeks to bring the bacterial infection under control and particularly cover for MRSA. The rash is so widespread that placing creams and topicals on it at this point time would be fruitless. Suggest Rocephin 2 g IV daily for 3 days to bring the bacterial infection under control. After this depending on culture results antibiotic selection that can be taken orally would be selected. - Re-Assessments/Exams Free Text/Narrative Re-Assessment/Exam: 11/15/17 17:51 Labs are back. They do confirm a slightly elevated white count of 11.49. Differential is pending. Hemoglobin is low at 9.0 with hematocrit of 27.9. Differential is pending. Urinalysis obtained by catheterization is within normal limits with no signs of infection. MCV is normal. Chemistry is now back. Serum sodium is low at 127 often found in patients with schizophrenia as they tend to over drink water and cause a dilutional hyponatremia. Potassium is 4.0. Toward is 94. Bicarbonate is 29. Anion gap is normal at 8.0. BUN is 9 with a creatinine of 1.0. eGFR is 56. Glucose is 126. Calcium is low at 7.6 suggesting some degree of malnutrition. Magnesium is 2.0. Bilirubin is 0.3. AST is 15 with an ALT of 19. Alk phosphatase is 80. C-reactive protein is mildly elevated at 2.5. BNP is mildly elevated at 425. Total protein is low at 5.6. Albumin fraction low at 2.3. TSH is normal at 1.98. Patient needs to be offered juices and/or Gatorade Powerade as alternatives to water to improve her dilutional hyponatremia. Serum osmolality was ordered. It could be corrected with intravenous fluids but this may prove to be more difficult due to her psychiatric illness. 11/15/17 18:39 Lab called and informed me that there is down and that the serum osmolality that I had ordered will not be available today. It can be perhaps one tomorrow. 11/15/17 18:46 Departure - Departure Time of Disposition: 19:00 Disposition: Admitted As Inpatient 66 Condition: Fair Clinical Impression: Chronic schizophrenia, Poor ability to follow directions, Impetigo due to Staphylococcus aureus, Tinea cruris, Intertrigo, Hyponatremia with decreased serum osmolality Cellulitis Qualifiers: Site of cellulitis: neck Qualified Code(s): L03.221 - Cellulitis of neck Anemia Qualifiers: Anemia type: unspecified type Qualified Code(s): D64.9 - Anemia, unspecified - Discharge Information Referrals: Neetu Bryson MD [Primary Care Provider] - Forms: ED Department Discharge - My Orders Last 24 Hours: My Active Orders 11/15/17 16:00 CULTURE MRSA [RM] Stat CULTURE WOUND [RM] Stat CULTURE WOUND [RM] Stat 11/15/17 16:04 EKG Documentation Completion [RC] STAT Sodium Chloride 0.9% [Saline Flush] 10 ml FLUSH ASDIRECTED PRN 11/15/17 16:05 Peripheral IV Care [RC] . DIRECTED Peripheral IV Insertion Adult [OM.PC] Stat 11/15/17 16:40 Insert Caro Catheter [Insert Urinary Catheter] [OM.PC] Stat Urinary Catheter Assessment [RC] ASDIRECTED 11/15/17 16:45 URINALYSIS W/MICROSCOPIC [UA W/MICROSCOPIC] [URIN] Stat cefTRIAXone [Rocephin] 2 gm Sodium Chloride 0.9% [Normal Saline] 100 ml IV Q24H 11/15/17 16:55 CULTURE EAR [RM] Stat 11/15/17 18:09 OSMOLALITY,SERUM [CHEM] Stat 11/15/17 18:46 Doxycycline [Vibramycin] 200 mg PO ONETIME ONE - Assessment/Plan Last 24 Hours: My Active Orders 11/15/17 16:00 CULTURE MRSA [RM] Stat CULTURE WOUND [RM] Stat CULTURE WOUND [RM] Stat 11/15/17 16:04 EKG Documentation Completion [RC] STAT Sodium Chloride 0.9% [Saline Flush] 10 ml FLUSH ASDIRECTED PRN 11/15/17 16:05 Peripheral IV Care [RC] . DIRECTED Peripheral IV Insertion Adult [OM.PC] Stat 11/15/17 16:40 Insert Caro Catheter [Insert Urinary Catheter] [OM.PC] Stat Urinary Catheter Assessment [RC] ASDIRECTED 11/15/17 16:45 URINALYSIS W/MICROSCOPIC [UA W/MICROSCOPIC] [URIN] Stat cefTRIAXone [Rocephin] 2 gm Sodium Chloride 0.9% [Normal Saline] 100 ml IV Q24H 11/15/17 16:55 CULTURE EAR [RM] Stat 11/15/17 18:09 OSMOLALITY,SERUM [CHEM] Stat 11/15/17 18:46 Doxycycline [Vibramycin] 200 mg PO ONETIME ONE
[2017-11-15] MEDS ORDERED: cefTRIAXone 2 GM in Sodium Chloride 0.9% 100 ML IV SCH (16:45)
[2017-11-15] MEDS ORDERED: Doxycycline 100 MG Cap PO ONE (18:46)
[2017-11-15] MEDS ORDERED: Magnesium Hydroxide 400 MG/5 ML Susp 30 ML Cup PO PRN (19:10)
[2017-11-15] MEDS ORDERED: Acetaminophen 325 MG Tab PO PRN (19:10)
[2017-11-15] MEDS ORDERED: Ondansetron 4 MG/2 ML SDV IV PRN (19:10)
[2017-11-15] MEDS ORDERED: Bisacodyl 5 MG Tab PO PRN (19:10)
[2017-11-15] MEDS ORDERED: Polyethylene Glycol 3350 Powder 17 GM Packet PO PRN (19:10)
[2017-11-15] MEDS ORDERED: Ondansetron 4 MG Tab.DIS PO PRN (19:10)
[2017-11-15] MEDS ORDERED: Docusate Sodium 100 MG Cap PO PRN (19:10)
[2017-11-15] MEDS ORDERED: Acetaminophen/oxyCODONE 325-5 MG Tab PO PRN (19:10)
[2017-11-15] MEDS ORDERED: Morphine 2 MG/ML Syringe IVPUSH PRN (19:10)
[2017-11-15] MEDS ORDERED: Bacitracin Oint 1 GM U/D Packet TOP SCH ×2 (19:30→21:00)
--- NOTE | 2017-11-15 19:52 | PCM.HP ---
H&P History of Present Illness - General Date of Service: 11/15/17 Admit Problem/Dx: Admission Diagnosis/Problem Admission Diagnosis/Problem Impetigo Source of Information: Patient, Old Records, Provider History Limitations: Reports: No Limitations, Other (Cooperative, A+O x3, h/o schizophrenia) - History of Present Illness Initial Comments - Free Text/Narative: HPI: This is a 62 yo female with past medical hx/o schizophrenia, bilateral partial frontal lobectomy, anxiety, depression, HTN, HLD, GERD, seizures, hypothyroid, anemia, psoriasis who comes in for extensive skin rash/impetigo. Pain is controlled. She reports no fever, chills, nausea, vomiting, diarrhea, or other dermatologic complaints. Her initial workup in the ED showed a CBC remarkable for WBC 11.49, RBC 3.43, Hgb 9, Hct 27.9, RDW 49.9, Plt 405, MPV 8, Neut 72%, Eosinophils 6%, ESR 34. Her chemistry is remarkable for Na 127, Cl 94, Glucose 126, Calcium 7.6, CRP 2.5 , BNP 425, Protein 5.6, Albumin 2.3. UA is not impressive for UTI. EKG showed NSR, LAD, prolonged QT interval, possible hypertrophy. She is subsequently admitted to the medical floor. She is a full code. Her PCP is Dr. Neetu Bryson. - Related Data Allergies/Adverse Reactions: Allergies Allergy/AdvReac Type Severity Reaction Status Date / Time carbamazepine [From Tegretol] Allergy Cannot Verified 03/12/17 13:51 Remember ezetimibe [From Zetia] Allergy Cannot Verified 03/12/17 13:51 Remember haloperidol AdvReac Seizures Verified 03/12/17 13:51 trifluoperazine HCl AdvReac Seizures Verified 03/12/17 13:51 [From Stelazine] Home Medications: Home Meds Latanoprost 1 drop EYEBOTH BEDTIME 03/12/17 [History] cloZAPine [Clozaril] 350 mg PO BEDTIME 03/12/17 [History] Atenolol [Tenormin] 25 mg PO DAILY 06/04/17 [History] LORazepam [Ativan] 0.5 mg PO TID 06/04/17 [History] Levothyroxine [Synthroid] 88 mcg PO DAILY 06/04/17 [History] Pantoprazole Sodium [Protonix] 40 mg PO DAILY 06/04/17 [History] Simvastatin [Zocor] 10 mg PO BEDTIME 06/04/17 [History] amLODIPine [Norvasc] 2.5 mg PO DAILY 06/04/17 [History] cloZAPine [Clozapine] 200 mg PO ASDIRECTED 06/04/17 [History] Saccharomyces Boulardii [Florastor] 250 mg PO BID #60 cap 06/13/17 [Rx] Cephalexin 500 mg PO QID 11/15/17 [History] Clotrimazole [Lotrimin AF] 1 applic TOP BID 11/15/17 [History] Iron Aspgly&Ps/C/B12/Fa/Ca/Suc [Ferrex 150 Forte Plus] 150 mg PO DAILY 11/15/17 [History] Triamcinolone Acetonide 1 applic TOP TID 11/15/17 [History] cloZAPine [Clozaril] 200 mg PO DAILY 11/15/17 [History] Past Medical History HEENT History: Reports: Glaucoma (Apparently has been on Latanoprost eyedrops.- 1 drop to each eye in the evening daily. She states she's not been able to put them in her eyes as of late.), Impaired Vision, Other (See Below) Other HEENT History: impacted cerumen Cardiovascular History: Reports: High Cholesterol, Hypertension Respiratory History: Reports: None Gastrointestinal History: Reports: Bowel Obstruction, Chronic Constipation, Chronic Diarrhea, GERD, GI Bleed Genitourinary History: Reports: Other (See Below) Other Genitourinary History: UTI BLEND TECHNICIAN History: Reports: None Musculoskeletal History: Reports: None Neurological History: Reports: Seizure Other Neuro History: bilateral partial frontal lobectomy. Psychiatric History: Reports: Anxiety, Depression, Schizophrenia Other Psychiatric History: Patient states "in [place], [place] for 20 Endocrine/Metabolic History: Reports: Hypothyroidism Hematologic History: Reports: Anemia Other Hematologic History: Low magnesium Immunologic History: Reports: None Oncologic (Cancer) History: Reports: None Dermatologic History: Reports: Other (See Below), Psoriasis Other Dermatologic History: "chronic pruritic rash" - Past Surgical History Head Surgeries/Procedures: Reports: Other (See Below) HEENT Surgical History: Reports: None Female Surgical History: Reports: Breast Implant Musculoskeletal Surgical History: Reports: None Oncologic Surgical History: Reports: None Social & Family History - Family History Family Medical History: Noncontributory - Tobacco Use Smoking Status *Q: Former Smoker Used Tobacco, but Quit: Yes Month/Year Tobacco Last Used: 14 yr - Caffeine Use Caffeine Use: Reports: Coffee - Recreational Drug Use Recreational Drug Use: No - Living Situation & Occupation Living situation: Reports: Single, with Family (Mother) Occupation: Disabled (Due to mental illness.) H&P Review of Systems - Review of Systems: Review Of Systems: See Below General: Reports: Weight Gain. Denies: Fever, Chills HEENT: Reports: Ear Pain (Right ear where rash/infection is present) Pulmonary: Reports: No Symptoms Cardiovascular: Reports: Palpitations (sometimes), Dyspnea on Exertion, Edema Gastrointestinal: Reports: Distension. Denies: Diarrhea, Nausea, Vomiting Genitourinary: Reports: Frequency. Denies: Dysuria, Burning, Pain, Urgency Musculoskeletal: Reports: No Symptoms Skin: Reports: Rash (Head, face, neck, ear, chest, abdomen, groin), Erythema ( Head to groin; sparing arms and legs) Psychiatric: Reports: Other (h/o schizophrenia) Neurological: Reports: No Symptoms Hematologic/Lymphatic: Reports: Anemia Immunologic: Reports: No Symptoms Exam - Exam Exam: See Below - Vital Signs Vital Signs: Last Vital Signs Temp 97.6 F 11/15/17 15:37 Pulse 75 11/15/17 15:37 Resp 20 11/15/17 15:37 BP 115/50 L 11/15/17 15:37 Pulse Ox 99 11/15/17 15:37 Weight: 174 lb - Exam Quality Assessment: DVT Prophylaxis General: Alert, Oriented, Cooperative, Mild Distress HEENT: Conjunctiva Clear, EACs Clear, EOMI, Hearing Intact, Mucosa Moist & [place] , Nares Patent, Normal Nasal Septum, Posterior Pharynx Clear, TMs Clear, Other ( R ear rash with weeping, cross crusty lesion at corner of right lip, dentition in need of care), PERRLA Neck: Supple, Trachea Midline, 2 Lungs: Clear to Auscultation, Normal Respiratory Effort Cardiovascular: Regular Rate, Regular Rhythm GI/Abdominal Exam: Normal Bowel Sounds, Soft, Non-Tender, No Organomegaly, No Distention, No Abnormal Bruit, No Mass, Pelvis Stable (Female) Exam: Deferred Rectal (Female) Exam: Deferred Back Exam: Normal Inspection, Full Range of Motion, NT Extremities: Normal Inspection, Normal Range of Motion, Non-Tender, No Pedal Edema, Normal Capillary Refill, Redness (rash with weeping on right shoulder and groin) Peripheral Pulses: 2+: Posterior Tibial (L), Posterior Tibial (R), Dorsalis Pedis (L), Dorsalis Pedis (R) Skin: Warm, Rash (right willis-face, scalp, right ear, anterior lateral neck and shoulder, intertrigo under both breasts, 4.5cm lesion at umbilicus, severe intertrigo groin with weeping), Other (inflammation, crusting, weeping) Neurological: Cranial Nerves Intact (grossly) Neuro Extensive - Mental Status: Alert, Oriented x3, Normal Mood/Affect, Other ( h/o schizophrenia, seems well controlled) Psychiatric: Alert, Normal Affect, Normal Mood, Other (h/o schizophrenia, seems well controlled) - Patient Data Lab Results Last 24 hrs: Laboratory Results - last 24 hr 11/15/17 11/15/17 11/15/17 Range/Units 16:45 17:00 17:00 WBC 11.49 H (3.98-10.04) K/mm3 RBC 3.43 L (3.98-5.22) M/mm3 Hgb 9.0 L (11.2-15.7) gm/L Hct 27.9 L (34.1-44.9) % MCV 81.3 (79.4-94.8) fl MCH 26.2 (25.6-32.2) pg MCHC 32.3 (32.2-35.5) g/dl RDW Std Deviation 49.9 H (36.4-46.3) fL Plt Count 405 H (182-369) K/mm3 MPV 8.0 L (9.4-12.3) fl Neutrophils % (Manual) 72 H (40-60) % Band Neutrophils % 0 (0-10) % Lymphocytes % (Manual) 17 L (20-40) % Atypical Lymphs % 0 % Monocytes % (Manual) 4 (2-10) % Eosinophils % (Manual) 6 H (0.7-5.8) % Basophils % (Manual) 1 (0.1-1.2) Platelet Estimate Adequate Plt Morphology Comment Normal Hypochromasia 1+ slight Anisocytosis 1+ slight RBC Morph Comment Not Reportable ESR (0-20) mm/hr Sodium 127 L (136-145) mEq/L Potassium 4.0 (3.5-5.1) mEq/L Chloride 94 L (98-107) mEq/L Carbon Dioxide 29 (21-32) mEq/L Anion Gap 8.0 (5-15) BUN 9 (7-18) mg/dL Creatinine 1.0 (0.55-1.02) mg/dL Est Cr Clr Drug Dosing 52.49 mL/min Estimated GFR (MDRD) 56 (>60) mL/min BUN/Creatinine Ratio 9.0 L (14-18) Glucose 126 H (80-115) mg/dL Calcium 7.6 L (8.5-10.1) mg/dL Magnesium 2.0 (1.8-2.4) mg/dl Total Bilirubin 0.3 (0.2-1.0) mg/dL AST 15 (15-37) U/L ALT 19 (14-59) U/L Alkaline Phosphatase 80 (46-116) U/L C-Reactive Protein 2.5 H* (<1.0) mg/dL NT-Pro-B Natriuret Pep (0-125) pg/mL Total Protein 5.6 L (6.4-8.2) g/dl Albumin 2.3 L (3.4-5.0) g/dl Globulin 3.3 gm/dL Albumin/Globulin Ratio 0.7 L (1-2) TSH 3rd Generation (0.358-3.74) uIU/mL Urine Color Yellow (Yellow) Urine Appearance Slt cloudy H (Clear) Urine pH 6.0 (5.0-8.0) Ur Specific [place] 1.015 (1.005-1.030) Urine Protein 1+ H (Negative) Urine Glucose (UA) Trace H (Negative) Urine Ketones Negative (Negative) Urine Occult Blood Negative (Negative) Urine Nitrite Negative (Negative) Urine Bilirubin Negative (Negative) Urine Urobilinogen 0.2 (0.2-1.0) Ur Leukocyte Esterase Negative (Negative) Urine RBC Not seen (0-5) /hpf Urine WBC 0-5 (0-5) /hpf Ur Epithelial Cells 0-5 (0-5) /hpf Urine Bacteria Not seen (FEW) /hpf Urine Mucus Not seen (FEW) /hpf 11/15/17 11/15/17 11/15/17 Range/Units 17:00 17:00 17:00 WBC (3.98-10.04) K/mm3 RBC (3.98-5.22) M/mm3 Hgb (11.2-15.7) gm/L Hct (34.1-44.9) % MCV (79.4-94.8) fl MCH (25.6-32.2) pg MCHC (32.2-35.5) g/dl RDW Std Deviation (36.4-46.3) fL Plt Count (182-369) K/mm3 MPV (9.4-12.3) fl Neutrophils % (Manual) (40-60) % Band Neutrophils % (0-10) % Lymphocytes % (Manual) (20-40) % Atypical Lymphs % % Monocytes % (Manual) (2-10) % Eosinophils % (Manual) (0.7-5.8) % Basophils % (Manual) (0.1-1.2) Platelet Estimate Plt Morphology Comment Hypochromasia Anisocytosis RBC Morph Comment ESR 34 H (0-20) mm/hr Sodium (136-145) mEq/L Potassium (3.5-5.1) mEq/L Chloride (98-107) mEq/L Carbon Dioxide (21-32) mEq/L Anion Gap (5-15) BUN (7-18) mg/dL Creatinine (0.55-1.02) mg/dL Est Cr Clr Drug Dosing mL/min Estimated GFR (MDRD) (>60) mL/min BUN/Creatinine Ratio (14-18) Glucose (80-115) mg/dL Calcium (8.5-10.1) mg/dL Magnesium (1.8-2.4) mg/dl Total Bilirubin (0.2-1.0) mg/dL AST (15-37) U/L ALT (14-59) U/L Alkaline Phosphatase (46-116) U/L C-Reactive Protein (<1.0) mg/dL NT-Pro-B Natriuret Pep 425 H (0-125) pg/mL Total Protein (6.4-8.2) g/dl Albumin (3.4-5.0) g/dl Globulin gm/dL Albumin/Globulin Ratio (1-2) TSH 3rd Generation 1.980 (0.358-3.74) uIU/mL Urine Color (Yellow) Urine Appearance (Clear) Urine pH (5.0-8.0) Ur Specific [place] (1.005-1.030) Urine Protein (Negative) Urine Glucose (UA) (Negative) Urine Ketones (Negative) Urine Occult Blood (Negative) Urine Nitrite (Negative) Urine Bilirubin (Negative) Urine Urobilinogen (0.2-1.0) Ur Leukocyte Esterase (Negative) Urine RBC (0-5) /hpf Urine WBC (0-5) /hpf Ur Epithelial Cells (0-5) /hpf Urine Bacteria (FEW) /hpf Urine Mucus (FEW) /hpf Result Diagrams: 11/15/17 17:00 11/15/17 17:00 - Problem List (1) Impetigo SNOMED Code(s): 55412663 ICD Code: L01.00 - IMPETIGO, UNSPECIFIED Status: Acute Priority: High Current Visit: Yes (2) Intertrigo SNOMED Code(s): 85958373 ICD Code: L30.4 - ERYTHEMA INTERTRIGO Status: Acute Priority: High Current Visit: Yes (3) Candidal dermatitis SNOMED Code(s): 70569573 ICD Code: B37.2 - CANDIDIASIS OF SKIN AND NAIL Status: Resolved Priority : High Current Visit: Yes (4) Tinea cruris SNOMED Code(s): 123019713 ICD Code: B35.6 - TINEA CRURIS Status: Acute Priority: High Current Visit: Yes (5) Chronic schizophrenia SNOMED Code(s): 25120551 ICD Code: F20.9 - SCHIZOPHRENIA, UNSPECIFIED Status: Chronic Priority: Medium Current Visit: Yes (6) Poor ability to follow directions SNOMED Code(s): 347000623 ICD Code: Z78.9 - OTHER SPECIFIED HEALTH STATUS Status: Chronic Priority : Medium Current Visit: Yes (7) Anemia of chronic illness SNOMED Code(s): 343929780 ICD Code: D63.8 - ANEMIA IN OTHER CHRONIC DISEASES CLASSIFIED ELSEWHERE Status: Chronic Priority: Medium Current Visit: No Problem List Initiated/Reviewed/Updated: Yes Orders Last 24hrs: Active Orders 24 hr Category Date Time Status Admission Status [Patient Status] [ADT] Routine ADT 11/15/17 18:49 Active Bathe Patient [RC] DAILY Care 11/15/17 19:25 Ordered Cardiac Monitoring [RC] INTERMITTENT Care 11/15/17 19:12 Ordered Communication Order [RC] DAILY Care 11/15/17 19:20 Ordered Communication Order [RC] DAILY Care 11/15/17 19:27 Ordered EKG Documentation Completion [RC] STAT Care 11/15/17 16:04 Active Height and Weight [RC] DAILY Care 11/15/17 19:10 Ordered Insert Caro Catheter [Insert Urinary Catheter] [OM.PC] Care 11/15/17 16:40 Ordered Stat Intake and Output [RC] QSHIFT Care 11/15/17 19:12 Ordered May Shower [RC] ASDIRECTED Care 11/15/17 19:10 Ordered Oxygen Therapy [RC] PRN Care 11/15/17 19:10 Ordered Peripheral IV Care [RC] . DIRECTED Care 11/15/17 16:05 Active Up With Assistance [RC] ASDIRECTED Care 11/15/17 19:10 Ordered Up ad Teresa [RC] ASDIRECTED Care 11/15/17 19:10 Ordered Urinary Catheter Assessment [RC] ASDIRECTED Care 11/15/17 16:40 Active VTE/DVT Education [RC] PER UNIT ROUTINE Care 11/15/17 19:10 Ordered Vital Signs [RC] Q4H Care 11/15/17 19:10 Ordered Consult to Case Management [CONS] Routine Cons 11/15/17 19:10 Ordered Consult to Ply Cutter [CONS] Routine Cons 11/15/17 19:10 Ordered OT Evaluation and Treatment [CONS] Routine Cons 11/15/17 19:10 Ordered PT Evaluation and Treatment [CONS] Routine Cons 11/15/17 19:10 Ordered Heart Healthy Diet [DIET] Diet 11/16/17 Breakfast Ordered CULTURE EAR [RM] Stat Lab 11/15/17 16:55 Received CULTURE MRSA [RM] Stat Lab 11/15/17 16:00 Received CULTURE WOUND [RM] Stat Lab 11/15/17 16:00 Received CULTURE WOUND [RM] Stat Lab 11/15/17 16:00 Received METH-RESIST S.AUR,MRSA BY PCR [MOLEC] Routine Lab 11/15/17 19:30 Ordered OSMOLALITY,SERUM [CHEM] Stat Lab 11/15/17 18:09 Received URINALYSIS W/MICROSCOPIC [UA W/MICROSCOPIC] [URIN] Stat Lab 11/15/17 16:45 Ordered Acetaminophen [Tylenol] Med 11/15/17 19:10 Ordered 650 mg PO Q4H PRN Acetaminophen/oxyCODONE [Percocet 325-5 MG] Med 11/15/17 19:10 Ordered 1 tab PO Q4H PRN Atenolol [Tenormin] Med 11/16/17 09:00 Ordered 25 mg PO DAILY Bacitracin [Bacitracin Oint 1 GM] Med 11/15/17 21:00 Ordered 1 dose TOP DAILY Bisacodyl [Dulcolax] Med 11/15/17 19:10 Ordered 5 mg PO DAILY PRN Clotrimazole Med 11/15/17 21:00 Ordered 1 applic TOP BID Docusate Sodium [Colace] Med 11/15/17 19:10 Ordered 100 mg PO BID PRN Docusate Sodium/Sennosides [Senna Plus] Med 11/15/17 19:10 Ordered 1 tab PO BID PRN Iron Aspgly&Ps/C/B12/Fa/Ca/Suc [Ferrex 150 Forte Plus] Med 11/16/17 09:00 Ordered 150 mg PO DAILY LORazepam [Ativan] Med 11/15/17 21:00 Ordered 0.5 mg PO TID Levothyroxine [Synthroid] Med 11/16/17 09:00 Ordered 88 mcg PO DAILY Magnesium Hydroxide [Milk of Magnesia] Med 11/15/17 19:10 Ordered 30 ml PO Q12H PRN Morphine Med 11/15/17 19:10 Ordered 2 mg IVPUSH Q2H PRN Ondansetron [Zofran ODT] Med 11/15/17 19:10 Ordered 4 mg PO Q4H PRN Ondansetron [Zofran] Med 11/15/17 19:10 Ordered 4 mg IV Q4H PRN Pantoprazole [ProTONIX IV] Med 11/16/17 09:00 Ordered 40 mg IVPUSH DAILY Polyethylene Glycol 3350 [MiraLAX] Med 11/15/17 19:10 Ordered 17 gm PO DAILY PRN Saccharomyces Boulardii [Florastor] Med 11/15/17 21:00 Ordered 250 mg PO BID Simvastatin [Zocor] Med 06/29/18 21:00 Ordered 10 mg PO BEDTIME Sodium Chloride 0.9% [Saline Flush] Med 11/15/17 16:04 Active 10 ml FLUSH ASDIRECTED PRN Vancomycin Pharmacy to Dose [Pharmacy to Dose - Med 11/15/17 19:30 Ordered Vancomycin] 1 dose .XX ASDIRECTED amLODIPine Med 11/16/17 09:00 Ordered 2.5 mg PO DAILY cefTRIAXone [Rocephin] 2 gm Med 11/15/17 16:45 Active Sodium Chloride 0.9% [Normal Saline] 100 ml IV Q24H cloZAPine Med 11/16/17 09:00 Ordered 200 mg PO DAILY cloZAPine Med 11/15/17 21:00 Ordered 350 mg PO BEDTIME cloZAPine [Clozapine] Med 11/15/17 19:30 Ordered 200 mg PO ASDIRECTED Peripheral IV Insertion Adult [OM.PC] Stat Oth 11/15/17 16:05 Ordered Sequential Compression Device [OM.PC] Per Unit Routine Oth 11/15/17 19:12 Ordered Resuscitation Status Routine Resus Stat 11/15/17 19:10 Ordered Medication Orders Acetaminophen (Tylenol) 650 mg PO Q4H PRN PRN Reason: Pain (Mild 1-3)/fever Atenolol (Tenormin) 25 mg PO DAILY [facility] Bacitracin (Bacitracin Oint 1 Gm) 1 dose TOP DAILY [facility] Bisacodyl (Dulcolax) 5 mg PO DAILY PRN PRN Reason: Constipation Clozapine (Clozapine) 200 mg PO DAILY [facility] Clozapine (Clozapine) 350 mg PO BEDTIME [facility] Docusate Sodium (Colace) 100 mg PO BID PRN PRN Reason: Constipation Ceftriaxone Sodium 2 gm/ (Sodium Chloride) 100 mls @ 100 mls/hr IV Q24H NAEL Last Admin: 11/15/17 16:55 Dose: 100 mls/hr Levothyroxine Sodium (Synthroid) 88 mcg PO DAILY [facility] Lorazepam (Ativan) 0.5 mg PO TID [facility] Magnesium Hydroxide (Milk Of Magnesia) 30 ml PO Q12H PRN PRN Reason: Constipation Morphine Sulfate (Morphine) 2 mg IVPUSH Q2H PRN PRN Reason: Pain (severe 7-10) Stop: 11/16/17 19:13 Non-Formulary Medication (Amlodipine) 2.5 mg PO DAILY [facility] Non-Formulary Medication (Clotrimazole) 1 applic TOP BID [facility] Non-Formulary Medication (Clozapine [Clozapine]) 200 mg PO ASDIRECTED [facility] Non-Formulary Medication (Iron Aspgly&Ps/C/B12/Fa/Ca/Suc [Ferrex 150 Forte Plus] ) 150 mg PO DAILY [facility] Ondansetron HCl (Zofran Odt) 4 mg PO Q4H PRN PRN Reason: nausea, able to take PO Ondansetron HCl (Zofran) 4 mg IV Q4H PRN PRN Reason: Nausea/Vomiting Oxycodone/Acetaminophen (Percocet 325-5 Mg) 1 tab PO Q4H PRN PRN Reason: Pain (moderate 4-6) Pantoprazole Sodium (Protonix Iv) 40 mg IVPUSH DAILY@0700 [facility] Polyethylene Glycol (Miralax) 17 gm PO DAILY PRN PRN Reason: Constipation Saccharomyces Boulardii (Florastor) 250 mg PO BID [facility] Senna/Docusate Sodium (Senna Plus) 1 tab PO BID PRN PRN Reason: Constipation Simvastatin (Zocor) 10 mg PO BEDTIME [facility] Sodium Chloride (Saline Flush) 10 ml FLUSH ASDIRECTED PRN PRN Reason: Keep Vein Open Last Admin: 11/15/17 16:35 Dose: 10 ml Vancomycin HCl (Pharmacy To Dose - Vancomycin) 1 dose .XX ASDIRECTED [facility] Assessment/Plan Comment:: I/P: Acute: Extensive Rash/Impetigo * Acute on Chronic; h/o strep infection * Risk Factors: Unable to care for self 2/2 schizophrenia, elderly mother cannot help, non compliant with medical treatment, poor hygiene * Inflammation, crusting, weeping: * Right willis-face, scalp, right ear with weeping, anterior lateral neck and shoulder with weeping, intertrigo under both breasts, 4.5cm lesion at umbilicus , severe intertrigo groin with weeping * WBC 11.49, ESR 34, CRP 2.5 * MRSA culture and PCR pending * Cultures of right ear, right shoulder and right groin pending * Rocephin 2g IV given in ED--> D/C * Doxycycline 200mg PO given in ED--> D/C * Start Vancomycin, pharmacy to dose * Lamisil 250 Q daily recommended x 3 weeks for possible candidiasis or tinea-- > do not carry this here; family will bring in * Bacitracin ointment Q daily * Daily assistance with showers and hygiene * Wound Care; change dressings daily * Recommend F/U with Dermatology * CM/SW for placement--> unable to take care of self Poor Hygiene * Most likely 2/2 Schizophrenia * Does not bathe regularly; has h/o denying showers in past hospital visits * Assist with showers and hygiene while here Medical Non-Compliance * Most likely 2/2 Schizophrenia * h/o seeing groundwater consultant Dr. Dudley--> non compliant with medical treatment of rash * h/o denying showers and walking in past hospital visits Chronic: Schizophrenia--> Continue Clozapine h/o Bilateral partial frontal lobectomy Anxiety Depression HTN HLD GERD Seizures Hypothyroid --> TSH 1.98 in ED Anemia --> Hgb 9 in ED Psoriasis Plan: Transferred to Med-Surg today Contact Precautions --> R/O MRSA She remains stable and continues to improve clinically Other orders as indicated above Continue home medications Heart Healthy Diet PT/OT DVT Prophylaxis: SCDs GI Prophylaxis: Protonix Ambulated as tolerated CM/SW for discharge planning--> Will most likely need to be placed d/t schizophrenia and dying mother; unable to take care of self--> Looking into [facility] Code Status: Full code; PCP: Dr. Neetu Bryson
[2017-11-15] MEDS: Vancomycin 1 GM, Vancomycin 250 MG in Sodium Chloride 0.9% 250 ML IV SCH (20:52)
[2017-11-15] MEDS: LORazepam 0.5 MG Tab PO SCH (20:53)
[2017-11-15] MEDS: Simvastatin 10 MG Tab PO SCH (20:53)
[2017-11-15] MEDS: Saccharomyces Boulardii (Probiotic) 250 MG Cap PO SCH (20:54)
[2017-11-15] MEDS: Clotrimazole 1% Crm 30 GM Tube TOP SCH (20:55)
[2017-11-15] MEDS ORDERED: cloZAPine 100 MG Tab PO SCH (21:00)
[2017-11-15] MEDS ORDERED: Triamcinolone Acetonide 0.1% Crm 15 GM Tube TOP SCH (21:00)
[2017-11-15] MEDS: Bacitracin Oint 15 GM Tube TOP SCH (23:25)
[2017-11-16] MEDS: Levothyroxine 88 MCG Tab PO SCH (06:51)
[2017-11-16] MEDS: Potassium Chloride/Sodium Chloride Tab PO SCH ×3 (06:51→21:44)
[2017-11-16] MEDS: Pantoprazole 40 MG Vial IVPUSH SCH (06:52)
[2017-11-16] MEDS ORDERED: Non-Formulary Medication 1 Each PO SCH (09:00)
[2017-11-16] MEDS: cloZAPine 100 MG Tab PO SCH ×3 (09:32→21:44)
[2017-11-16] MEDS: amLODIPine 2.5 MG Tab PO SCH (09:33)
[2017-11-16] MEDS: Atenolol 25 MG Tab PO SCH (09:35)
[2017-11-16] MEDS: Iron Polysaccharides Complex 150 MG Cap PO SCH (09:35)
[2017-11-16] MEDS: LORazepam 0.5 MG Tab PO SCH ×3 (09:35→21:45)
[2017-11-16] MEDS: Saccharomyces Boulardii (Probiotic) 250 MG Cap PO SCH ×2 (09:37→21:44)
[2017-11-16] MEDS: Vancomycin 1 GM, Vancomycin 250 MG in Sodium Chloride 0.9% 250 ML IV SCH ×2 (09:39→21:43)
[2017-11-16] MEDS: Bacitracin Oint 15 GM Tube TOP SCH (09:40)
[2017-11-16] MEDS: Clotrimazole 1% Crm 30 GM Tube TOP SCH (09:41)
[2017-11-16] MEDS: LAMISIL PO SCH (09:42)
[2017-11-16] MEDS: Sodium Chloride 0.9% 1,000 ML IV SCH ×2 (09:52→19:35)
--- NOTE | 2017-11-16 11:54 | PCM.PN ---
- General Info Date of Service: 11/16/17 Functional Status: Reports: Pain Controlled, Tolerating Diet, Ambulating, Urinating - Review of Systems General: Reports: No Symptoms HEENT: Reports: No Symptoms Pulmonary: Reports: No Symptoms Cardiovascular: Reports: No Symptoms Gastrointestinal: Reports: No Symptoms Genitourinary: Reports: No Symptoms Musculoskeletal: Reports: No Symptoms Skin: Reports: No Symptoms Neurological: Reports: No Symptoms Psychiatric: Reports: No Symptoms - Patient Data Vitals - Most Recent: Last Vital Signs Temp 36.4 C 11/16/17 03:00 Pulse 83 11/16/17 09:35 Resp 17 11/16/17 03:00 BP 123/64 11/16/17 09:35 Pulse Ox 100 11/16/17 03:00 Weight - Most Recent: 78.29 kg I&O - Last 24 Hours: Intake & Output 11/15/17 11/16/17 11/16/17 22:59 06:59 14:59 Intake Total 3720 480 Output Total 3225 Balance 495 480 Lab Results Last 24 Hours: Laboratory Results - last 24 hr 11/15/17 11/15/17 11/15/17 Range/Units 16:45 17:00 17:00 WBC 11.49 H (3.98-10.04) K/mm3 RBC 3.43 L (3.98-5.22) M/mm3 Hgb 9.0 L (11.2-15.7) gm/L Hct 27.9 L (34.1-44.9) % MCV 81.3 (79.4-94.8) fl MCH 26.2 (25.6-32.2) pg MCHC 32.3 (32.2-35.5) g/dl RDW Std Deviation 49.9 H (36.4-46.3) fL Plt Count 405 H (182-369) K/mm3 MPV 8.0 L (9.4-12.3) fl Neutrophils % (Manual) 72 H (40-60) % Band Neutrophils % 0 (0-10) % Lymphocytes % (Manual) 17 L (20-40) % Atypical Lymphs % 0 % Monocytes % (Manual) 4 (2-10) % Eosinophils % (Manual) 6 H (0.7-5.8) % Basophils % (Manual) 1 (0.1-1.2) Platelet Estimate Adequate Plt Morphology Comment Normal Hypochromasia 1+ slight Anisocytosis 1+ slight RBC Morph Comment Not Reportable ESR (0-20) mm/hr Sodium 127 L (136-145) mEq/L Potassium 4.0 (3.5-5.1) mEq/L Chloride 94 L (98-107) mEq/L Carbon Dioxide 29 (21-32) mEq/L Anion Gap 8.0 (5-15) BUN 9 (7-18) mg/dL Creatinine 1.0 (0.55-1.02) mg/dL Est Cr Clr Drug Dosing 52.49 mL/min Estimated GFR (MDRD) 56 (>60) mL/min BUN/Creatinine Ratio 9.0 L (14-18) Glucose 126 H (80-115) mg/dL Serum Osmolality (280-300) mosm/kg Calcium 7.6 L (8.5-10.1) mg/dL Magnesium 2.0 (1.8-2.4) mg/dl Total Bilirubin 0.3 (0.2-1.0) mg/dL AST 15 (15-37) U/L ALT 19 (14-59) U/L Alkaline Phosphatase 80 (46-116) U/L C-Reactive Protein 2.5 H* (<1.0) mg/dL NT-Pro-B Natriuret Pep (0-125) pg/mL Total Protein 5.6 L (6.4-8.2) g/dl Albumin 2.3 L (3.4-5.0) g/dl Globulin 3.3 gm/dL Albumin/Globulin Ratio 0.7 L (1-2) TSH 3rd Generation (0.358-3.74) uIU/mL Urine Color Yellow (Yellow) Urine Appearance Slt cloudy H (Clear) Urine pH 6.0 (5.0-8.0) Ur Specific [place] 1.015 (1.005-1.030) Urine Protein 1+ H (Negative) Urine Glucose (UA) Trace H (Negative) Urine Ketones Negative (Negative) Urine Occult Blood Negative (Negative) Urine Nitrite Negative (Negative) Urine Bilirubin Negative (Negative) Urine Urobilinogen 0.2 (0.2-1.0) Ur Leukocyte Esterase Negative (Negative) Urine RBC Not seen (0-5) /hpf Urine WBC 0-5 (0-5) /hpf Ur Epithelial Cells 0-5 (0-5) /hpf Urine Bacteria Not seen (FEW) /hpf Urine Mucus Not seen (FEW) /hpf 11/15/17 11/15/17 11/15/17 Range/Units 17:00 17:00 17:00 WBC (3.98-10.04) K/mm3 RBC (3.98-5.22) M/mm3 Hgb (11.2-15.7) gm/L Hct (34.1-44.9) % MCV (79.4-94.8) fl MCH (25.6-32.2) pg MCHC (32.2-35.5) g/dl RDW Std Deviation (36.4-46.3) fL Plt Count (182-369) K/mm3 MPV (9.4-12.3) fl Neutrophils % (Manual) (40-60) % Band Neutrophils % (0-10) % Lymphocytes % (Manual) (20-40) % Atypical Lymphs % % Monocytes % (Manual) (2-10) % Eosinophils % (Manual) (0.7-5.8) % Basophils % (Manual) (0.1-1.2) Platelet Estimate Plt Morphology Comment Hypochromasia Anisocytosis RBC Morph Comment ESR 34 H (0-20) mm/hr Sodium (136-145) mEq/L Potassium (3.5-5.1) mEq/L Chloride (98-107) mEq/L Carbon Dioxide (21-32) mEq/L Anion Gap (5-15) BUN (7-18) mg/dL Creatinine (0.55-1.02) mg/dL Est Cr Clr Drug Dosing mL/min Estimated GFR (MDRD) (>60) mL/min BUN/Creatinine Ratio (14-18) Glucose (80-115) mg/dL Serum Osmolality (280-300) mosm/kg Calcium (8.5-10.1) mg/dL Magnesium (1.8-2.4) mg/dl Total Bilirubin (0.2-1.0) mg/dL AST (15-37) U/L ALT (14-59) U/L Alkaline Phosphatase (46-116) U/L C-Reactive Protein (<1.0) mg/dL NT-Pro-B Natriuret Pep 425 H (0-125) pg/mL Total Protein (6.4-8.2) g/dl Albumin (3.4-5.0) g/dl Globulin gm/dL Albumin/Globulin Ratio (1-2) TSH 3rd Generation 1.980 (0.358-3.74) uIU/mL Urine Color (Yellow) Urine Appearance (Clear) Urine pH (5.0-8.0) Ur Specific [place] (1.005-1.030) Urine Protein (Negative) Urine Glucose (UA) (Negative) Urine Ketones (Negative) Urine Occult Blood (Negative) Urine Nitrite (Negative) Urine Bilirubin (Negative) Urine Urobilinogen (0.2-1.0) Ur Leukocyte Esterase (Negative) Urine RBC (0-5) /hpf Urine WBC (0-5) /hpf Ur Epithelial Cells (0-5) /hpf Urine Bacteria (FEW) /hpf Urine Mucus (FEW) /hpf 11/15/17 11/16/17 Range/Units 18:09 07:32 WBC (3.98-10.04) K/mm3 RBC (3.98-5.22) M/mm3 Hgb (11.2-15.7) gm/L Hct (34.1-44.9) % MCV (79.4-94.8) fl MCH (25.6-32.2) pg MCHC (32.2-35.5) g/dl RDW Std Deviation (36.4-46.3) fL Plt Count (182-369) K/mm3 MPV (9.4-12.3) fl Neutrophils % (Manual) (40-60) % Band Neutrophils % (0-10) % Lymphocytes % (Manual) (20-40) % Atypical Lymphs % % Monocytes % (Manual) (2-10) % Eosinophils % (Manual) (0.7-5.8) % Basophils % (Manual) (0.1-1.2) Platelet Estimate Plt Morphology Comment Hypochromasia Anisocytosis RBC Morph Comment ESR (0-20) mm/hr Sodium 129 L (136-145) mEq/L Potassium 4.2 (3.5-5.1) mEq/L Chloride 95 L (98-107) mEq/L Carbon Dioxide 25 (21-32) mEq/L Anion Gap 13.2 (5-15) BUN 8 (7-18) mg/dL Creatinine 0.8 (0.55-1.02) mg/dL Est Cr Clr Drug Dosing 65.61 mL/min Estimated GFR (MDRD) > 60 (>60) mL/min BUN/Creatinine Ratio 10.0 L (14-18) Glucose 103 (80-115) mg/dL Serum Osmolality 263 L (280-300) mosm/kg Calcium 8.4 L (8.5-10.1) mg/dL Magnesium 1.9 (1.8-2.4) mg/dl Total Bilirubin 0.3 (0.2-1.0) mg/dL AST 17 (15-37) U/L ALT 19 (14-59) U/L Alkaline Phosphatase 98 (46-116) U/L C-Reactive Protein 3.3 H* (<1.0) mg/dL NT-Pro-B Natriuret Pep (0-125) pg/mL Total Protein 6.7 (6.4-8.2) g/dl Albumin 2.7 L (3.4-5.0) g/dl Globulin 4.0 gm/dL Albumin/Globulin Ratio 0.7 L (1-2) TSH 3rd Generation (0.358-3.74) uIU/mL Urine Color (Yellow) Urine Appearance (Clear) Urine pH (5.0-8.0) Ur Specific [place] (1.005-1.030) Urine Protein (Negative) Urine Glucose (UA) (Negative) Urine Ketones (Negative) Urine Occult Blood (Negative) Urine Nitrite (Negative) Urine Bilirubin (Negative) Urine Urobilinogen (0.2-1.0) Ur Leukocyte Esterase (Negative) Urine RBC (0-5) /hpf Urine WBC (0-5) /hpf Ur Epithelial Cells (0-5) /hpf Urine Bacteria (FEW) /hpf Urine Mucus (FEW) /hpf Navdeep Results Last 24 Hours: Microbiology 11/15/17 16:55 Ear Culture - Preliminary Ear, Unspecified Gram Negative Rods 11/15/17 16:00 Wound Culture - Preliminary Shoulder, Right Gram Positive Cocci Gram Negative Rods 11/15/17 16:00 Wound Culture - Preliminary Neck Gram Positive Cocci Gram Negative Rods Med Orders - Current: Current Medications Acetaminophen (Tylenol) 650 mg PO Q4H PRN PRN Reason: Pain (Mild 1-3)/fever Amlodipine Besylate (Norvasc) 2.5 mg PO DAILY [facility] Last Admin: 11/16/17 09:33 Dose: 2.5 mg Atenolol (Tenormin) 25 mg PO DAILY [facility] Last Admin: 11/16/17 09:35 Dose: 25 mg Bisacodyl (Dulcolax) 5 mg PO DAILY PRN PRN Reason: Constipation Clozapine (Clozapine) 200 mg PO DAILY [facility] Last Admin: 11/16/17 09:32 Dose: 200 mg Clozapine (Clozapine) 200 mg PO DAILY@1600 NAEL Clozapine (Clozapine) 300 mg PO BEDTIME [facility] Clozapine (Clozapine) 50 mg PO BEDTIME [facility] Docusate Sodium (Colace) 100 mg PO BID PRN PRN Reason: Constipation Vancomycin HCl 1 gm/Vancomycin HCl 250 mg/ Sodium Chloride 250 mls @ 166.512 mls/hr IV Q12H [facility] Last Admin: 11/16/17 09:39 Dose: 166.512 mls/hr Sodium Chloride (Normal Saline) 1,000 mls @ 125 mls/hr IV ASDIRECTED [facility] Last Admin: 11/16/17 09:52 Dose: 125 mls/hr Ceftriaxone Sodium 2 gm/ (Sodium Chloride) 100 mls @ 200 mls/hr IV Q24H [facility] Latanoprost (Xalatan 0.005% Ophth Soln) 0 ml EYEBOTH BEDTIME [facility] Levothyroxine Sodium (Synthroid) 88 mcg PO ACBRK [facility] Last Admin: 11/16/17 06:51 Dose: 88 mcg Lorazepam (Ativan) 0.5 mg PO TID [facility] Last Admin: 11/16/17 09:35 Dose: 0.5 mg Magnesium Hydroxide (Milk Of Magnesia) 30 ml PO Q12H PRN PRN Reason: Constipation Morphine Sulfate (Morphine) 2 mg IVPUSH Q2H PRN PRN Reason: Pain (severe 7-10) Stop: 11/16/17 19:13 Nystatin (Nystop) 15 gm TOP TID PRN PRN Reason: Anti-fungal Ondansetron HCl (Zofran Odt) 4 mg PO Q4H PRN PRN Reason: nausea, able to take PO Ondansetron HCl (Zofran) 4 mg IV Q4H PRN PRN Reason: Nausea/Vomiting Oral Electrolytes (Thermotabs) 1 each PO TID@0600,1200,2100 [facility] Last Admin: 11/16/17 11:34 Dose: 1 each Oxycodone/Acetaminophen (Percocet 325-5 Mg) 1 tab PO Q4H PRN PRN Reason: Pain (moderate 4-6) Pantoprazole Sodium (Protonix Iv) 40 mg IVPUSH DAILY@0700 [facility] Last Admin: 11/16/17 06:52 Dose: 40 mg Lamisil 250 Mg ( (Terbinafine)) 0 each PO DAILY [facility] Last Admin: 11/16/17 09:42 Dose: Not Given Polyethylene Glycol (Miralax) 17 gm PO DAILY PRN PRN Reason: Constipation Polysaccharide Iron Complex (Ferrex 150) 150 mg PO DAILY [facility] Last Admin: 11/16/17 09:35 Dose: 150 mg Saccharomyces Boulardii (Florastor) 250 mg PO BID [facility] Last Admin: 11/16/17 09:37 Dose: 250 mg Senna/Docusate Sodium (Senna Plus) 1 tab PO BID PRN PRN Reason: Constipation Simvastatin (Zocor) 10 mg PO BEDTIME [facility] Last Admin: 11/15/17 20:53 Dose: 10 mg Sodium Chloride (Saline Flush) 10 ml FLUSH ASDIRECTED PRN PRN Reason: Keep Vein Open Last Admin: 11/15/17 16:35 Dose: 10 ml Vancomycin HCl (Pharmacy To Dose - Vancomycin) 0 dose .XX ASDIRECTED PRN PRN Reason: RX TO DOSE VANCOMYCIN Discontinued Medications Bacitracin (Bacitracin Oint 1 Gm) 1 dose TOP ONETIME [facility] Bacitracin (Bacitracin Oint 1 Gm) 1 dose TOP DAILY [facility] Last Admin: 11/15/17 21:05 Dose: Not Given Bacitracin (Bacitracin Oint) 0 gm TOP DAILY [facility] Last Admin: 11/16/17 09:40 Dose: 1 applic Clotrimazole (Lotrimin Af 1% Crm) 0 gm TOP BID [facility] Last Admin: 11/16/17 09:41 Dose: 1 applic Clozapine (Clozapine) 350 mg PO BEDTIME [facility] Last Admin: 11/15/17 20:53 Dose: 350 mg Doxycycline Hyclate (Vibramycin) 200 mg PO ONETIME ONE Stop: 11/15/17 18:47 Last Admin: 11/15/17 20:52 Dose: 200 mg Ceftriaxone Sodium 2 gm/ (Sodium Chloride) 100 mls @ 100 mls/hr IV Q24H [facility] Last Admin: 11/15/17 16:55 Dose: 100 mls/hr Non-Formulary Medication (Nf Drug) 250 each PO DAILY [facility] Triamcinolone Acetonide (Triamcinolone Acetonide 0.1% Crm) gm TOP TID NAEL - Exam Quality Assessment: DVT Prophylaxis General: Alert, Oriented, Cooperative, No Acute Distress HEENT: Pupils Equal, Pupils Reactive, EOMI Neck: Trachea Midline, No JVD Lungs: Normal Respiratory Effort Cardiovascular: Regular Rate, Regular Rhythm GI/Abdominal Exam: Normal Bowel Sounds, Soft, Non-Tender, No Organomegaly, No Distention (Female) Exam: Deferred Back Exam: Normal Inspection Extremities: Normal Range of Motion, Non-Tender, Redness, Other (rash, weeping.) Skin: Moist, Rash Wound/Incisions: Drainage, Erythema Improving Neurological: No New Focal Deficit, Normal Speech Psy/Mental Status: Alert - Problem List Review Problem List Initiated/Reviewed/Updated: Yes - My Orders Last 24 Hours: My Active Orders 11/16/17 17:00 cefTRIAXone [Rocephin] 2 gm Sodium Chloride 0.9% [Normal Saline] 100 ml IV Q24H - Plan Plan:: I/P: Acute: Extensive Rash/Impetigo * Acute on Chronic; h/o strep infection * Risk Factors: Unable to care for self 2/2 schizophrenia, elderly mother cannot help, non compliant with medical treatment, poor hygiene * Inflammation, crusting, weeping: * Right willis-face, scalp, right ear with weeping, anterior lateral neck and shoulder with weeping, intertrigo under both breasts, 4.5cm lesion at umbilicus , severe intertrigo groin with weeping * WBC 11.49, ESR 34, CRP 2.5 * MRSA culture and PCR pending * Cultures of right ear, right shoulder and right groin pending * Rocephin 2g IV given in ED--> D/C * Doxycycline 200mg PO given in ED--> D/C * Vancomycin, pharmacy to dose * Lamisil 250 Q daily recommended x 3 weeks for possible candidiasis or tinea-- > do not carry this here; family will bring in * Bacitracin ointment Q daily * Daily assistance with showers and hygiene * Wound Care; change dressings daily * Recommend F/U with Dermatology * CM/SW for placement--> unable to take care of self Poor Hygiene * Most likely 2/2 Schizophrenia * Does not bathe regularly; has h/o denying showers in past hospital visits * Assist with showers and hygiene while here Medical Non-Compliance * Most likely 2/2 Schizophrenia * 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--> non compliant with medical treatment of rash * h/o denying showers and walking in past hospital visits Chronic: Schizophrenia--> Continue Clozapine h/o Bilateral partial frontal lobectomy Anxiety Depression HTN HLD GERD Seizures Hypothyroid --> TSH 1.98 in ED Anemia --> Hgb 9 in ED Psoriasis Plan: Continue Vanco, add Rocephin; continue Lamisil Contact Precautions --> R/O MRSA She remains stable and continues to improve clinically Other orders as indicated above Continue home medications Heart Healthy Diet PT/OT DVT Prophylaxis: SCDs GI Prophylaxis: Protonix Ambulated as tolerated CM/SW for discharge planning--> Will most likely need to be placed d/t schizophrenia and dying mother; unable to take care of self--> Looking into [facility] Code Status: Full code; PCP: Dr. Neetu Bryson
[2017-11-16] MEDS: Nystatin Topical Powder 15 GM Bottle TOP PRN (15:48)
[2017-11-16] MEDS: cefTRIAXone 2 GM in Sodium Chloride 0.9% 100 ML IV SCH (17:36)
[2017-11-16] MEDS: Latanoprost 0.005% Ophth Soln 2.5 ML Bottle EYEBOTH SCH (21:46)
[2017-11-16] MEDS: Simvastatin 10 MG Tab PO SCH (21:46)
[2017-11-17] MEDS: Levothyroxine 88 MCG Tab PO SCH (05:11)
[2017-11-17] MEDS: Potassium Chloride/Sodium Chloride Tab PO SCH ×3 (05:11→21:17)
[2017-11-17] MEDS: Sodium Chloride 0.9% 1,000 ML IV SCH (05:16)
[2017-11-17] MEDS: Pantoprazole 40 MG Vial IVPUSH SCH (07:06)
[2017-11-17] MEDS: Iron Polysaccharides Complex 150 MG Cap PO SCH (08:37)
[2017-11-17] MEDS: LORazepam 0.5 MG Tab PO SCH ×3 (08:37→21:16)
[2017-11-17] MEDS: Saccharomyces Boulardii (Probiotic) 250 MG Cap PO SCH ×2 (08:37→21:18)
[2017-11-17] MEDS: amLODIPine 2.5 MG Tab PO SCH (08:41)
[2017-11-17] MEDS: LAMISIL PO SCH (08:41)
[2017-11-17] MEDS: Atenolol 25 MG Tab PO SCH (08:41)
[2017-11-17] MEDS: Nystatin Topical Powder 15 GM Bottle TOP PRN (08:43)
[2017-11-17] MEDS: cloZAPine 100 MG Tab PO SCH ×3 (09:36→21:15)
[2017-11-17] MEDS: Vancomycin 1 GM, Vancomycin 250 MG in Sodium Chloride 0.9% 250 ML IV SCH ×2 (09:37→21:14)
[2017-11-17] MEDS ORDERED: Furosemide 20 MG/2 ML VIAL IVPUSH ONE (11:00)
--- NOTE | 2017-11-17 14:20 | PCM.PN ---
- General Info Date of Service: 11/17/17 Subjective Update: Patient was informed that she has to shower or bathe daily to improve the condition of her skin; the patient is aware that she has a skin infection from staph/strep and is on antibiotics. She has agreed to be more involved with grooming and self care. Functional Status: Reports: Pain Controlled, Tolerating Diet, Ambulating, Urinating - Review of Systems General: Reports: No Symptoms HEENT: Reports: No Symptoms Pulmonary: Reports: No Symptoms Cardiovascular: Reports: No Symptoms Gastrointestinal: Reports: No Symptoms Genitourinary: Reports: No Symptoms Musculoskeletal: Reports: No Symptoms Skin: Reports: No Symptoms Neurological: Reports: No Symptoms Psychiatric: Reports: No Symptoms - Patient Data Vitals - Most Recent: Last Vital Signs Temp 36.8 C 11/17/17 12:43 Pulse 65 11/17/17 12:43 Resp 16 11/17/17 12:43 BP 104/76 11/17/17 12:43 Pulse Ox 100 11/17/17 12:43 Weight - Most Recent: 78.29 kg I&O - Last 24 Hours: Intake & Output 11/16/17 11/17/17 11/17/17 22:59 06:59 14:59 Intake Total 5041 3225 440 Output Total 3550 3950 Balance 1491 -720 440 Lab Results Last 24 Hours: Laboratory Results - last 24 hr 11/16/17 11/17/17 11/17/17 Range/Units 17:42 08:10 08:10 WBC 8.57 (3.98-10.04) K/mm3 RBC 3.85 L (3.98-5.22) M/mm3 Hgb 10.1 L (11.2-15.7) gm/L Hct 31.4 L (34.1-44.9) % MCV 81.6 (79.4-94.8) fl MCH 26.2 (25.6-32.2) pg MCHC 32.2 (32.2-35.5) g/dl RDW Std Deviation 51.3 H (36.4-46.3) fL Plt Count 409 H (182-369) K/mm3 MPV 8.4 L (9.4-12.3) fl Neut % (Auto) 65.6 (34.0-71.1) % Lymph % (Auto) 15.3 L (19.3-51.7) % [place] % (Auto) 10.2 (4.7-12.5) % Eos % (Auto) 8.1 H (0.7-5.8) Baso % (Auto) 0.4 (0.1-1.2) % Neut # (Auto) 5.64 (1.56-6.13) K/mm3 Lymph # (Auto) 1.31 (1.18-3.74) K/mm3 [place] # (Auto) 0.87 H (0.24-0.36) K/mm3 Eos # (Auto) 0.69 H (0.04-0.36) K/mm3 Baso # (Auto) 0.03 (0.01-0.08) K/mm3 Sodium (136-145) mEq/L Potassium (3.5-5.1) mEq/L Chloride (98-107) mEq/L Carbon Dioxide (21-32) mEq/L Anion Gap (5-15) BUN (7-18) mg/dL Creatinine (0.55-1.02) mg/dL Est Cr Clr Drug Dosing mL/min Estimated GFR (MDRD) (>60) mL/min BUN/Creatinine Ratio (14-18) Glucose (80-115) mg/dL Calcium (8.5-10.1) mg/dL Magnesium (1.8-2.4) mg/dl C-Reactive Protein (<1.0) mg/dL Vancomycin Trough 18.3 (10.0-20.0) MRSA (PCR) Negative 11/17/17 11/17/17 Range/Units 08:10 08:10 WBC (3.98-10.04) K/mm3 RBC (3.98-5.22) M/mm3 Hgb (11.2-15.7) gm/L Hct (34.1-44.9) % MCV (79.4-94.8) fl MCH (25.6-32.2) pg MCHC (32.2-35.5) g/dl RDW Std Deviation (36.4-46.3) fL Plt Count (182-369) K/mm3 MPV (9.4-12.3) fl Neut % (Auto) (34.0-71.1) % Lymph % (Auto) (19.3-51.7) % [place] % (Auto) (4.7-12.5) % Eos % (Auto) (0.7-5.8) Baso % (Auto) (0.1-1.2) % Neut # (Auto) (1.56-6.13) K/mm3 Lymph # (Auto) (1.18-3.74) K/mm3 [place] # (Auto) (0.24-0.36) K/mm3 Eos # (Auto) (0.04-0.36) K/mm3 Baso # (Auto) (0.01-0.08) K/mm3 Sodium 134 L (136-145) mEq/L Potassium 4.4 (3.5-5.1) mEq/L Chloride 101 (98-107) mEq/L Carbon Dioxide 24 (21-32) mEq/L Anion Gap 13.4 (5-15) BUN 8 (7-18) mg/dL Creatinine 0.9 (0.55-1.02) mg/dL Est Cr Clr Drug Dosing 58.32 mL/min Estimated GFR (MDRD) > 60 (>60) mL/min BUN/Creatinine Ratio 8.9 L (14-18) Glucose 95 (80-115) mg/dL Calcium 8.2 L (8.5-10.1) mg/dL Magnesium 1.9 (1.8-2.4) mg/dl C-Reactive Protein 1.8 H* (<1.0) mg/dL Vancomycin Trough (10.0-20.0) MRSA (PCR) Navdeep Results Last 24 Hours: Microbiology 11/15/17 16:00 Wound Culture - Preliminary Shoulder, Right Gram Positive Cocci Gram Negative Rods 11/15/17 16:00 Wound Culture - Preliminary Neck Staphylococcus Aureus Pseudomonas Aeruginosa 11/15/17 16:00 MRSA Culture - Final Groin, Right NO MRSA ISOLATED 11/15/17 16:55 Ear Culture - Preliminary Ear, Unspecified Pseudomonas Aeruginosa Med Orders - Current: Current Medications Acetaminophen (Tylenol) 650 mg PO Q4H PRN PRN Reason: Pain (Mild 1-3)/fever Amlodipine Besylate (Norvasc) 2.5 mg PO DAILY [facility] Last Admin: 11/17/17 08:41 Dose: 2.5 mg Atenolol (Tenormin) 25 mg PO DAILY [facility] Last Admin: 11/17/17 08:41 Dose: 25 mg Bisacodyl (Dulcolax) 5 mg PO DAILY PRN PRN Reason: Constipation Clozapine (Clozapine) 200 mg PO DAILY [facility] Last Admin: 11/17/17 09:36 Dose: 200 mg Clozapine (Clozapine) 200 mg PO DAILY@1600 [facility] Last Admin: 11/16/17 15:48 Dose: 200 mg Clozapine (Clozapine) 300 mg PO BEDTIME [facility] Last Admin: 11/16/17 21:44 Dose: 300 mg Clozapine (Clozapine) 50 mg PO BEDTIME [facility] Last Admin: 11/16/17 21:45 Dose: 50 mg Docusate Sodium (Colace) 100 mg PO BID PRN PRN Reason: Constipation Vancomycin HCl 1 gm/Vancomycin HCl 250 mg/ Sodium Chloride 250 mls @ 166.512 mls/hr IV Q12H [facility] Last Admin: 11/17/17 09:37 Dose: 166.512 mls/hr Ceftriaxone Sodium 2 gm/ (Sodium Chloride) 100 mls @ 200 mls/hr IV Q24H [facility] Last Admin: 11/16/17 17:36 Dose: 200 mls/hr Latanoprost (Xalatan 0.005% Ophth Soln) 0 ml EYEBOTH BEDTIME [facility] Last Admin: 11/16/17 21:46 Dose: 1 drop Levothyroxine Sodium (Synthroid) 88 mcg PO ACBRK [facility] Last Admin: 11/17/17 05:11 Dose: 88 mcg Lorazepam (Ativan) 0.5 mg PO TID [facility] Last Admin: 11/17/17 08:37 Dose: 0.5 mg Magnesium Hydroxide (Milk Of Magnesia) 30 ml PO Q12H PRN PRN Reason: Constipation Nystatin (Nystop) 0 gm TOP TID [facility] Ondansetron HCl (Zofran Odt) 4 mg PO Q4H PRN PRN Reason: nausea, able to take PO Ondansetron HCl (Zofran) 4 mg IV Q4H PRN PRN Reason: Nausea/Vomiting Oral Electrolytes (Thermotabs) 1 each PO TID@0600,1200,2100 [facility] Last Admin: 11/17/17 11:22 Dose: 1 each Oxycodone/Acetaminophen (Percocet 325-5 Mg) 1 tab PO Q4H PRN PRN Reason: Pain (moderate 4-6) Pantoprazole Sodium (Protonix Iv) 40 mg IVPUSH DAILY@0700 [facility] Last Admin: 11/17/17 07:06 Dose: 40 mg Lamisil 250 Mg ( (Terbinafine)) 0 each PO DAILY [facility] Last Admin: 11/17/17 08:41 Dose: 1 each Polyethylene Glycol (Miralax) 17 gm PO DAILY PRN PRN Reason: Constipation Polysaccharide Iron Complex (Ferrex 150) 150 mg PO DAILY [facility] Last Admin: 11/17/17 08:37 Dose: 150 mg Saccharomyces Boulardii (Florastor) 250 mg PO BID [facility] Last Admin: 11/17/17 08:37 Dose: 250 mg Senna/Docusate Sodium (Senna Plus) 1 tab PO BID PRN PRN Reason: Constipation Simvastatin (Zocor) 10 mg PO BEDTIME [facility] Last Admin: 11/16/17 21:46 Dose: 10 mg Sodium Chloride (Saline Flush) 10 ml FLUSH ASDIRECTED PRN PRN Reason: Keep Vein Open Last Admin: 11/15/17 16:35 Dose: 10 ml Vancomycin HCl (Pharmacy To Dose - Vancomycin) 0 dose .XX ASDIRECTED PRN PRN Reason: RX TO DOSE VANCOMYCIN Discontinued Medications Bacitracin (Bacitracin Oint 1 Gm) 1 dose TOP ONETIME [facility] Bacitracin (Bacitracin Oint 1 Gm) 1 dose TOP DAILY [facility] Last Admin: 11/15/17 21:05 Dose: Not Given Bacitracin (Bacitracin Oint) 0 gm TOP DAILY [facility] Last Admin: 11/16/17 09:40 Dose: 1 applic Clotrimazole (Lotrimin Af 1% Crm) 0 gm TOP BID [facility] Last Admin: 11/16/17 09:41 Dose: 1 applic Clozapine (Clozapine) 350 mg PO BEDTIME [facility] Last Admin: 11/15/17 20:53 Dose: 350 mg Doxycycline Hyclate (Vibramycin) 200 mg PO ONETIME ONE Stop: 11/15/17 18:47 Last Admin: 11/15/17 20:52 Dose: 200 mg Furosemide (Lasix) 20 mg IVPUSH NOW ONE Stop: 11/17/17 11:01 Last Admin: 11/17/17 11:22 Dose: 20 mg Ceftriaxone Sodium 2 gm/ (Sodium Chloride) 100 mls @ 100 mls/hr IV Q24H [facility] Last Admin: 11/15/17 16:55 Dose: 100 mls/hr Sodium Chloride (Normal Saline) 1,000 mls @ 125 mls/hr IV ASDIRECTED [facility] Last Admin: 11/17/17 05:16 Dose: 125 mls/hr Morphine Sulfate (Morphine) 2 mg IVPUSH Q2H PRN PRN Reason: Pain (severe 7-10) Stop: 11/16/17 19:13 Non-Formulary Medication (Nf Drug) 250 each PO DAILY [facility] Nystatin (Nystop) 15 gm TOP TID PRN PRN Reason: Anti-fungal Last Admin: 11/17/17 08:43 Dose: 1 applic Triamcinolone Acetonide (Triamcinolone Acetonide 0.1% Crm) gm TOP TID [facility] - Exam Quality Assessment: DVT Prophylaxis General: Alert, Oriented, Cooperative, No Acute Distress HEENT: Pupils Equal, Pupils Reactive, EOMI Neck: Trachea Midline, No JVD Lungs: Normal Respiratory Effort Cardiovascular: Regular Rate, Regular Rhythm GI/Abdominal Exam: Normal Bowel Sounds, Soft, Non-Tender, No Organomegaly, No Distention (Female) Exam: Deferred Back Exam: Normal Inspection Extremities: Normal Inspection, Normal Range of Motion, Non-Tender, No Pedal Edema Skin: Warm Neurological: No New Focal Deficit Psy/Mental Status: Alert, Normal Affect, Normal Mood - Problem List Review Problem List Initiated/Reviewed/Updated: Yes - My Orders Last 24 Hours: My Active Orders 11/16/17 17:00 cefTRIAXone [Rocephin] 2 gm Sodium Chloride 0.9% [Normal Saline] 100 ml IV Q24H 11/17/17 15:00 Nystatin [Nystop] See Dose Instructions TOP TID - Plan Plan:: I/P: Acute: Extensive Rash/Impetigo * Acute on Chronic; h/o strep infection * Risk Factors: Unable to care for self 2/2 schizophrenia, elderly mother cannot help, non compliant with medical treatment, poor hygiene * Inflammation, crusting, weeping: * Right willis-face, scalp, right ear with weeping, anterior lateral neck and shoulder with weeping, intertrigo under both breasts, 4.5cm lesion at umbilicus , severe intertrigo groin with weeping * WBC 11.49, ESR 34, CRP 2.5 * MRSA culture and PCR pending * Cultures of right ear, right shoulder and right groin pending * Rocephin 2g IV given in ED--> D/C * Doxycycline 200mg PO given in ED--> D/C * Vancomycin, pharmacy to dose * Lamisil 250 Q daily recommended x 3 weeks for possible candidiasis or tinea-- > do not carry this here; family will bring in * Bacitracin ointment Q daily * Daily assistance with showers and hygiene * Wound Care; change dressings daily * Recommend F/U with Dermatology * CM/SW for placement--> unable to take care of self Poor Hygiene * Most likely 2/2 Schizophrenia * Does not bathe regularly; has h/o denying showers in past hospital visits * Assist with showers and hygiene while here Medical Non-Compliance * Most likely 2/2 Schizophrenia * h/o seeing information systems professor Dr. Dudley--> non compliant with medical treatment of rash * h/o denying showers and walking in past hospital visits Chronic: Schizophrenia--> Continue Clozapine h/o Bilateral partial frontal lobectomy Anxiety Depression HTN HLD GERD Seizures Hypothyroid --> TSH 1.98 in ED Anemia --> Hgb 9 in ED Psoriasis Plan: Continue Vanco, add Rocephin; continue Lamisil Contact Precautions --> R/O MRSA She remains stable and continues to improve clinically Other orders as indicated above Continue home medications Heart Healthy Diet PT/OT DVT Prophylaxis: SCDs GI Prophylaxis: Protonix Ambulated as tolerated CM/SW for discharge planning--> Will most likely need to be placed d/t schizophrenia and dying mother; unable to take care of self--> Looking into [facility] Code Status: Full code; PCP: Dr. Neetu Bryson Disposition is needed, patient has limitations and her Mother has a terminal illness.
[2017-11-17] MEDS: Nystatin Topical Powder 15 GM Bottle TOP SCH ×2 (15:03→21:26)
[2017-11-17] MEDS: cefTRIAXone 2 GM in Sodium Chloride 0.9% 100 ML IV SCH (16:52)
[2017-11-17] MEDS: Simvastatin 10 MG Tab PO SCH (21:16)
[2017-11-17] MEDS: Latanoprost 0.005% Ophth Soln 2.5 ML Bottle EYEBOTH SCH (21:19)
[2017-11-18] MEDS: Levothyroxine 88 MCG Tab PO SCH (06:25)
[2017-11-18] MEDS: Potassium Chloride/Sodium Chloride Tab PO SCH ×3 (06:26→20:28)
[2017-11-18] MEDS: Pantoprazole 40 MG Vial IVPUSH SCH (06:28)
[2017-11-18] MEDS: LORazepam 0.5 MG Tab PO SCH ×3 (08:01→20:27)
[2017-11-18] MEDS: cloZAPine 100 MG Tab PO SCH ×3 (08:01→20:28)
[2017-11-18] MEDS: Saccharomyces Boulardii (Probiotic) 250 MG Cap PO SCH ×2 (08:01→20:28)
[2017-11-18] MEDS: Iron Polysaccharides Complex 150 MG Cap PO SCH (08:02)
[2017-11-18] MEDS: Pantoprazole 40 MG Tab.CR PO SCH (08:02)
[2017-11-18] MEDS: amLODIPine 2.5 MG Tab PO SCH (08:02)
[2017-11-18] MEDS: Atenolol 25 MG Tab PO SCH (08:02)
[2017-11-18] MEDS: LAMISIL PO SCH (08:03)
[2017-11-18] MEDS: Nystatin Topical Powder 15 GM Bottle TOP SCH ×3 (08:03→20:28)
[2017-11-18] MEDS: Vancomycin 1 GM, Vancomycin 250 MG in Sodium Chloride 0.9% 250 ML IV SCH (08:03)
--- NOTE | 2017-11-18 12:35 | PCM.PN ---
- General Info Date of Service: 11/18/17 Functional Status: Reports: Tolerating Diet, Ambulating, Urinating - Review of Systems General: Reports: No Symptoms HEENT: Reports: No Symptoms Pulmonary: Reports: No Symptoms Cardiovascular: Reports: No Symptoms Gastrointestinal: Reports: No Symptoms Genitourinary: Reports: No Symptoms Musculoskeletal: Reports: No Symptoms Skin: Reports: No Symptoms Neurological: Reports: No Symptoms Psychiatric: Reports: No Symptoms - Patient Data Vitals - Most Recent: Last Vital Signs Temp 36.8 C 11/18/17 07:40 Pulse 76 11/18/17 08:02 Resp 16 11/18/17 07:40 BP 149/94 H 11/18/17 08:02 Pulse Ox 99 11/18/17 07:40 Weight - Most Recent: 78.608 kg I&O - Last 24 Hours: Intake & Output 11/17/17 11/18/17 11/18/17 22:59 06:59 14:59 Intake Total 4775 2100 540 Output Total 3700 1850 Balance 1075 250 540 Lab Results Last 24 Hours: Laboratory Results - last 24 hr 11/18/17 11/18/17 Range/Units 06:09 06:09 WBC 7.28 (3.98-10.04) K/mm3 RBC 3.51 L (3.98-5.22) M/mm3 Hgb 9.2 L (11.2-15.7) gm/L Hct 28.6 L (34.1-44.9) % MCV 81.5 (79.4-94.8) fl MCH 26.2 (25.6-32.2) pg MCHC 32.2 (32.2-35.5) g/dl RDW Std Deviation 50.0 H (36.4-46.3) fL Plt Count 459 H (182-369) K/mm3 MPV 8.1 L (9.4-12.3) fl Neut % (Auto) 59.8 (34.0-71.1) % Lymph % (Auto) 19.6 (19.3-51.7) % [place] % (Auto) 11.0 (4.7-12.5) % Eos % (Auto) 8.4 H (0.7-5.8) Baso % (Auto) 0.7 (0.1-1.2) % Neut # (Auto) 4.35 (1.56-6.13) K/mm3 Lymph # (Auto) 1.43 (1.18-3.74) K/mm3 [place] # (Auto) 0.80 H (0.24-0.36) K/mm3 Eos # (Auto) 0.61 H (0.04-0.36) K/mm3 Baso # (Auto) 0.05 (0.01-0.08) K/mm3 Sodium 135 L (136-145) mEq/L Potassium 4.0 (3.5-5.1) mEq/L Chloride 101 (98-107) mEq/L Carbon Dioxide 28 (21-32) mEq/L Anion Gap 10.0 (5-15) BUN 10 (7-18) mg/dL Creatinine 0.8 (0.55-1.02) mg/dL Est Cr Clr Drug Dosing 65.61 mL/min Estimated GFR (MDRD) > 60 (>60) mL/min BUN/Creatinine Ratio 12.5 L (14-18) Glucose 93 (80-115) mg/dL Calcium 8.5 (8.5-10.1) mg/dL Magnesium 2.0 (1.8-2.4) mg/dl C-Reactive Protein 1.2 H* (<1.0) mg/dL Navdeep Results Last 24 Hours: Microbiology 11/15/17 16:00 Wound Culture - Preliminary Neck Staphylococcus Aureus Pseudomonas Aeruginosa Beta Streptococcus Group G 11/15/17 16:55 Ear Culture - Preliminary Ear, Unspecified Pseudomonas Aeruginosa 11/15/17 16:00 MRSA Culture - Final Groin, Right NO MRSA ISOLATED 11/15/17 16:00 Wound Culture - Preliminary Shoulder, Right Gram Positive Cocci Gram Negative Rods Med Orders - Current: Current Medications Acetaminophen (Tylenol) 650 mg PO Q4H PRN PRN Reason: Pain (Mild 1-3)/fever Amlodipine Besylate (Norvasc) 2.5 mg PO DAILY [facility] Last Admin: 11/18/17 08:02 Dose: 2.5 mg Atenolol (Tenormin) 25 mg PO DAILY [facility] Last Admin: 11/18/17 08:02 Dose: 25 mg Bisacodyl (Dulcolax) 5 mg PO DAILY PRN PRN Reason: Constipation Clozapine (Clozapine) 200 mg PO DAILY [facility] Last Admin: 11/18/17 08:01 Dose: 200 mg Clozapine (Clozapine) 200 mg PO DAILY@1600 [facility] Last Admin: 11/17/17 15:04 Dose: 200 mg Clozapine (Clozapine) 300 mg PO BEDTIME [facility] Last Admin: 11/17/17 21:15 Dose: 300 mg Clozapine (Clozapine) 50 mg PO BEDTIME [facility] Last Admin: 11/17/17 21:18 Dose: 50 mg Docusate Sodium (Colace) 100 mg PO BID PRN PRN Reason: Constipation Vancomycin HCl 1 gm/Vancomycin HCl 250 mg/ Sodium Chloride 250 mls @ 166.512 mls/hr IV Q12H [facility] Last Admin: 11/18/17 08:03 Dose: Not Given Ceftriaxone Sodium 2 gm/ (Sodium Chloride) 100 mls @ 200 mls/hr IV Q24H [facility] Last Admin: 11/17/17 16:52 Dose: 200 mls/hr Cefepime HCl 1 gm/ Premix 50 mls @ 100 mls/hr IV Q8H [facility] Clindamycin Phosphate 900 mg/ (Sodium Chloride) 106 mls @ 100 mls/hr IV Q6H [facility] Meropenem 1 gm/ Sodium (Chloride) 100 mls @ 200 mls/hr IV Q8H [facility] Latanoprost (Xalatan 0.005% Ophth Soln) 0 ml EYEBOTH BEDTIME [facility] Last Admin: 11/17/17 21:19 Dose: 1 drop Levothyroxine Sodium (Synthroid) 88 mcg PO ACBRK [facility] Last Admin: 11/18/17 06:25 Dose: 88 mcg Lorazepam (Ativan) 0.5 mg PO TID [facility] Last Admin: 11/18/17 08:01 Dose: 0.5 mg Magnesium Hydroxide (Milk Of Magnesia) 30 ml PO Q12H PRN PRN Reason: Constipation Nystatin (Nystop) 0 gm TOP TID [facility] Last Admin: 11/18/17 08:03 Dose: 1 applic Ondansetron HCl (Zofran Odt) 4 mg PO Q4H PRN PRN Reason: nausea, able to take PO Ondansetron HCl (Zofran) 4 mg IV Q4H PRN PRN Reason: Nausea/Vomiting Oral Electrolytes (Thermotabs) 1 each PO TID@0600,1200,2100 [facility] Last Admin: 11/18/17 12:17 Dose: 1 each Oxycodone/Acetaminophen (Percocet 325-5 Mg) 1 tab PO Q4H PRN PRN Reason: Pain (moderate 4-6) Pantoprazole Sodium (Protonix) 40 mg PO DAILY@0700 [facility] Last Admin: 11/18/17 08:02 Dose: 40 mg Lamisil 250 Mg ( (Terbinafine)) 0 each PO DAILY [facility] Last Admin: 11/18/17 08:03 Dose: 1 each Polyethylene Glycol (Miralax) 17 gm PO DAILY PRN PRN Reason: Constipation Polysaccharide Iron Complex (Ferrex 150) 150 mg PO DAILY [facility] Last Admin: 11/18/17 08:02 Dose: 150 mg Saccharomyces Boulardii (Florastor) 250 mg PO BID [facility] Last Admin: 11/18/17 08:01 Dose: 250 mg Senna/Docusate Sodium (Senna Plus) 1 tab PO BID PRN PRN Reason: Constipation Simvastatin (Zocor) 10 mg PO BEDTIME [facility] Last Admin: 11/17/17 21:16 Dose: 10 mg Sodium Chloride (Saline Flush) 10 ml FLUSH ASDIRECTED PRN PRN Reason: Keep Vein Open Last Admin: 11/15/17 16:35 Dose: 10 ml Vancomycin HCl (Pharmacy To Dose - Vancomycin) 0 dose .XX ASDIRECTED PRN PRN Reason: RX TO DOSE VANCOMYCIN Discontinued Medications Bacitracin (Bacitracin Oint 1 Gm) 1 dose TOP ONETIME [facility] Bacitracin (Bacitracin Oint 1 Gm) 1 dose TOP DAILY [facility] Last Admin: 11/15/17 21:05 Dose: Not Given Bacitracin (Bacitracin Oint) 0 gm TOP DAILY [facility] Last Admin: 11/16/17 09:40 Dose: 1 applic Clotrimazole (Lotrimin Af 1% Crm) 0 gm TOP BID [facility] Last Admin: 11/16/17 09:41 Dose: 1 applic Clozapine (Clozapine) 350 mg PO BEDTIME [facility] Last Admin: 11/15/17 20:53 Dose: 350 mg Doxycycline Hyclate (Vibramycin) 200 mg PO ONETIME ONE Stop: 11/15/17 18:47 Last Admin: 11/15/17 20:52 Dose: 200 mg Furosemide (Lasix) 20 mg IVPUSH NOW ONE Stop: 11/17/17 11:01 Last Admin: 11/17/17 11:22 Dose: 20 mg Ceftriaxone Sodium 2 gm/ (Sodium Chloride) 100 mls @ 100 mls/hr IV Q24H [facility] Last Admin: 11/15/17 16:55 Dose: 100 mls/hr Sodium Chloride (Normal Saline) 1,000 mls @ 125 mls/hr IV ASDIRECTED [facility] Last Admin: 11/17/17 05:16 Dose: 125 mls/hr Morphine Sulfate (Morphine) 2 mg IVPUSH Q2H PRN PRN Reason: Pain (severe 7-10) Stop: 11/16/17 19:13 Non-Formulary Medication (Nf Drug) 250 each PO DAILY [facility] Nystatin (Nystop) 15 gm TOP TID PRN PRN Reason: Anti-fungal Last Admin: 11/17/17 08:43 Dose: 1 applic Pantoprazole Sodium (Protonix Iv) 40 mg IVPUSH DAILY@0700 [facility] Last Admin: 11/18/17 06:28 Dose: Not Given Triamcinolone Acetonide (Triamcinolone Acetonide 0.1% Crm) gm TOP TID [facility] - Exam Quality Assessment: DVT Prophylaxis General: Alert, Oriented, No Acute Distress HEENT: Pupils Equal, Pupils Reactive, EOMI Neck: Trachea Midline, No JVD Lungs: Normal Respiratory Effort Cardiovascular: Regular Rate, Regular Rhythm GI/Abdominal Exam: Normal Bowel Sounds, Soft, Non-Tender, No Organomegaly, No Distention (Female) Exam: Deferred Back Exam: Normal Inspection Extremities: Normal Inspection Skin: Warm Wound/Incisions: Erythema Improving Neurological: No New Focal Deficit, Normal Gait, Normal Speech Psy/Mental Status: Alert, Anxious - Problem List Review Problem List Initiated/Reviewed/Updated: Yes - My Orders Last 24 Hours: My Active Orders 11/17/17 15:00 Nystatin [Nystop] See Dose Instructions TOP TID 11/18/17 12:30 Cefepime [Maxipime in D5W 1 GM/50 ML] 1 gm Premix Bag 1 bag IV Q8H Clindamycin Phosphate [Cleocin] 900 mg Sodium Chloride 0.9% [Normal Saline] 100 ml IV Q6H Meropenem [Merrem] 1 gm Sodium Chloride 0.9% [Normal Saline] 100 ml IV Q8H - Plan Plan:: I/P: Acute: Extensive Rash/Impetigo--new IV site; PICC [place], 11/18/17 * Acute on Chronic; h/o strep infection * Risk Factors: Unable to care for self 2/2 schizophrenia, elderly mother cannot help, non compliant with medical treatment, poor hygiene * Inflammation, crusting, weeping: * Right willis-face, scalp, right ear with weeping, anterior lateral neck and shoulder with weeping, intertrigo under both breasts, 4.5cm lesion at umbilicus , severe intertrigo groin with weeping * WBC 11.49, ESR 34, CRP 2.5 * MRSA culture and PCR pending * Cultures of right ear, right shoulder and right groin pending * Rocephin 2g IV given in ED--> D/C * Doxycycline 200mg PO given in ED--> D/C * Vancomycin, pharmacy to dose * Lamisil 250 Q daily recommended x 3 weeks for possible kelvin or tinea--> do not carry this here; family will bring in * Bacitracin ointment Q daily * Daily assistance with showers and hygiene * Wound Care; change dressings daily * Recommend F/U with Dermatology * CM/SW for placement--> unable to take care of self Poor Hygiene * Most likely 2/2 Schizophrenia * Does not bathe regularly; has h/o denying showers in past hospital visits * Assist with showers and hygiene while here Medical Non-Compliance * Most likely 2/2 Schizophrenia * h/o seeing retail greeting card merchandiser Dr. Dudley--> non compliant with medical treatment of rash * h/o denying showers and walking in past hospital visits Chronic: Schizophrenia--> Continue Clozapine h/o Bilateral partial frontal lobectomy Anxiety Depression HTN HLD GERD Seizures Hypothyroid --> TSH 1.98 in ED Anemia --> Hgb 9 in ED Psoriasis Plan: DC Vanco, add Rocephin; dc Lamisil; Meropenem/Clinda/Cefepime Contact Precautions --> R/O MRSA She remains stable and continues to improve clinically Other orders as indicated above Continue home medications Heart Healthy Diet PT/OT DVT Prophylaxis: SCDs GI Prophylaxis: Protonix Ambulated as tolerated CM/SW for discharge planning--> Will most likely need to be placed d/t schizophrenia and dying mother; unable to take care of self--> Looking into [facility] Code Status: Full code; PCP: Dr. Neetu Bryson Disposition is needed, patient has limitations and her Mother has a terminal illness. LOS>96 hours for IV ATBs; placement for chronic medical needs, PACE program.
--- NOTE | 2017-11-18 13:21 | PCM.PREANE ---
Preanesthetic Assessment - Procedure Proposed Procedure: PICC line placement - Anesthesia/Transfusion/Family Hx Anesthesia History: Prior Anesthesia Without Reaction Family History of Anesthesia Reaction: No Transfusion History: No Prior Transfusion(s) - Review of Systems General: No Symptoms Pulmonary: Cough (generalized, seasonal) Cardiovascular: No Symptoms Gastrointestinal: No Symptoms Neurological: Confusion - Physical Assessment NPO Status Date: 11/18/17 NPO Status Time: 00:00 Pulse: 76 O2 Sat by Pulse Oximetry: 99 Respiratory Rate: 16 Blood Pressure: 149/94 Temperature: 36.8 C Vital Signs: Last Vital Signs Temp 36.8 C 11/18/17 07:40 Pulse 76 11/18/17 08:02 Resp 16 11/18/17 07:40 BP 149/94 H 11/18/17 08:02 Pulse Ox 99 11/18/17 07:40 Height: 1.65 m Weight: 78.608 kg ASA Class: 2 Mental Status: Alert & Oriented x3 Airway Class: Mallampati = 2 Dentition: Reports: Broken Tooth/Teeth, Missing Tooth/Teeth, Caries Thyro-Mental Finger Breadths: 3 Mouth Opening Finger Breadths: 3 ROM/Head Extension: Full Lungs: Clear to Auscultation, Normal Respiratory Effort Cardiovascular: Regular Rate, Regular Rhythm - Lab Values: Laboratory Last Values WBC 7.28 K/mm3 (3.98-10.04) 11/18/17 06:09 RBC 3.51 M/mm3 (3.98-5.22) L 11/18/17 06:09 Hgb 9.2 gm/L (11.2-15.7) L 11/18/17 06:09 Hct 28.6 % (34.1-44.9) L 11/18/17 06:09 MCV 81.5 fl (79.4-94.8) 11/18/17 06:09 MCH 26.2 pg (25.6-32.2) 11/18/17 06:09 MCHC 32.2 g/dl (32.2-35.5) 11/18/17 06:09 RDW Std Deviation 50.0 fL (36.4-46.3) H 11/18/17 06:09 Plt Count 459 K/mm3 (182-369) H 11/18/17 06:09 MPV 8.1 fl (9.4-12.3) L 11/18/17 06:09 Neut % (Auto) 59.8 % (34.0-71.1) 11/18/17 06:09 Lymph % (Auto) 19.6 % (19.3-51.7) 11/18/17 06:09 Clark % (Auto) 11.0 % (4.7-12.5) 11/18/17 06:09 Eos % (Auto) 8.4 (0.7-5.8) H 11/18/17 06:09 Baso % (Auto) 0.7 % (0.1-1.2) 11/18/17 06:09 Neut # (Auto) 4.35 K/mm3 (1.56-6.13) 11/18/17 06:09 Lymph # (Auto) 1.43 K/mm3 (1.18-3.74) 11/18/17 06:09 Clark # (Auto) 0.80 K/mm3 (0.24-0.36) H 11/18/17 06:09 Eos # (Auto) 0.61 K/mm3 (0.04-0.36) H 11/18/17 06:09 Baso # (Auto) 0.05 K/mm3 (0.01-0.08) 11/18/17 06:09 Neutrophils % (Manual) 72 % (40-60) H 11/15/17 17:00 Band Neutrophils % 0 % (0-10) 11/15/17 17:00 Lymphocytes % (Manual) 17 % (20-40) L 11/15/17 17:00 Atypical Lymphs % 0 % 11/15/17 17:00 Monocytes % (Manual) 4 % (2-10) 11/15/17 17:00 Eosinophils % (Manual) 6 % (0.7-5.8) H 11/15/17 17:00 Basophils % (Manual) 1 (0.1-1.2) 11/15/17 17:00 Platelet Estimate Adequate 11/15/17 17:00 Plt Morphology Comment Normal 11/15/17 17:00 Hypochromasia 1+ slight 11/15/17 17:00 Anisocytosis 1+ slight 11/15/17 17:00 RBC Morph Comment Not Reportable 11/15/17 17:00 ESR 34 mm/hr (0-20) H 11/15/17 17:00 Sodium 135 mEq/L (136-145) L 11/18/17 06:09 Potassium 4.0 mEq/L (3.5-5.1) 11/18/17 06:09 Chloride 101 mEq/L (98-107) 11/18/17 06:09 Carbon Dioxide 28 mEq/L (21-32) 11/18/17 06:09 Anion Gap 10.0 (5-15) 11/18/17 06:09 BUN 10 mg/dL (7-18) 11/18/17 06:09 Creatinine 0.8 mg/dL (0.55-1.02) 11/18/17 06:09 Est Cr Clr Drug Dosing 65.61 mL/min 11/18/17 06:09 Estimated GFR (MDRD) > 60 mL/min (>60) 11/18/17 06:09 BUN/Creatinine Ratio 12.5 (14-18) L 11/18/17 06:09 Glucose 93 mg/dL (80-115) 11/18/17 06:09 Serum Osmolality 263 mosm/kg (280-300) L 11/15/17 18:09 Calcium 8.5 mg/dL (8.5-10.1) 11/18/17 06:09 Magnesium 2.0 mg/dl (1.8-2.4) 11/18/17 06:09 Total Bilirubin 0.3 mg/dL (0.2-1.0) 11/16/17 07:32 AST 17 U/L (15-37) 11/16/17 07:32 ALT 19 U/L (14-59) 11/16/17 07:32 Alkaline Phosphatase 98 U/L (46-116) 11/16/17 07:32 C-Reactive Protein 1.2 mg/dL (<1.0) H* 11/18/17 06:09 NT-Pro-B Natriuret Pep 425 pg/mL (0-125) H 11/15/17 17:00 Total Protein 6.7 g/dl (6.4-8.2) 11/16/17 07:32 Albumin 2.7 g/dl (3.4-5.0) L 11/16/17 07:32 Globulin 4.0 gm/dL 11/16/17 07:32 Albumin/Globulin Ratio 0.7 (1-2) L 11/16/17 07:32 TSH 3rd Generation 1.980 uIU/mL (0.358-3.74) 11/15/17 17:00 Urine Color Yellow (Yellow) 11/15/17 16:45 Urine Appearance Slt cloudy (Clear) H 11/15/17 16:45 Urine pH 6.0 (5.0-8.0) 11/15/17 16:45 Ur Specific [place] 1.015 (1.005-1.030) 11/15/17 16:45 Urine Protein 1+ (Negative) H 11/15/17 16:45 Urine Glucose (UA) Trace (Negative) H 11/15/17 16:45 Urine Ketones Negative (Negative) 11/15/17 16:45 Urine Occult Blood Negative (Negative) 11/15/17 16:45 Urine Nitrite Negative (Negative) 11/15/17 16:45 Urine Bilirubin Negative (Negative) 11/15/17 16:45 Urine Urobilinogen 0.2 (0.2-1.0) 11/15/17 16:45 Ur Leukocyte Esterase Negative (Negative) 11/15/17 16:45 Urine RBC Not seen /hpf (0-5) 11/15/17 16:45 Urine WBC 0-5 /hpf (0-5) 11/15/17 16:45 Ur Epithelial Cells 0-5 /hpf (0-5) 11/15/17 16:45 Urine Bacteria Not seen /hpf (FEW) 11/15/17 16:45 Urine Mucus Not seen /hpf (FEW) 11/15/17 16:45 Vancomycin Trough 18.3 (10.0-20.0) 11/17/17 08:10 MRSA (PCR) Negative 11/16/17 17:42 - Allergies Allergies/Adverse Reactions: Allergies Allergy/AdvReac Type Severity Reaction Status Date / Time carbamazepine [From Tegretol] Allergy Cannot Verified 11/16/17 03:33 Remember ezetimibe [From Zetia] Allergy Cannot Verified 11/16/17 03:33 Remember haloperidol AdvReac Seizures Verified 11/16/17 03:33 trifluoperazine HCl AdvReac Seizures Verified 11/16/17 03:33 [From Stelazine] - Blood Blood Available: No Product(s) Available: None - Anesthesia Plan Pre-Op Medication Ordered: Beta Ruth Beta Ruth: Acebutolol Med Last Dose Date: 11/18/17 Med Last Dose Time: 08:00 - Acknowledgements Anesthesia Type Planned: MAC Pt an Appropriate Candidate for the Planned Anesthesia: Yes Alternatives and Risks of Anesthesia Discussed w Pt/Guardian: Yes Pt/Guardian Understands and Agrees with Anesthesia Plan: Yes PreAnesthesia Questionnaire HEENT History: Reports: Glaucoma (Apparently has been on Latanoprost eyedrops.- 1 drop to each eye in the evening daily. 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 Psychiatric History: Reports: Anxiety, Depression, Schizophrenia Other Psychiatric History: Patient states "in [place], [place] for 20 Endocrine/Metabolic History: Reports: Hypothyroidism Hematologic History: Reports: Anemia Other Hematologic History: Low magnesium Immunologic History: Reports: None Oncologic (Cancer) History: Reports: None Dermatologic History: Reports: Other (See Below), Psoriasis Other Dermatologic History: "chronic pruritic rash" - Past Surgical History Head Surgeries/Procedures: Reports: Other (See Below) HEENT Surgical History: Reports: None Female Surgical History: Reports: Breast Implant Musculoskeletal Surgical History: Reports: None Oncologic Surgical History: Reports: None - SUBSTANCE USE Smoking Status *Q: Former Smoker Tobacco Use Within Last Twelve Months: Cigarettes Second Hand Smoke Exposure: No Recreational Drug Use History: No - HOME MEDS Home Medications: Home Meds Latanoprost 1 drop EYEBOTH BEDTIME 03/12/17 [History] cloZAPine [Clozaril] 350 mg PO BEDTIME 03/12/17 [History] Atenolol [Tenormin] 25 mg PO DAILY 06/04/17 [History] LORazepam [Ativan] 0.5 mg PO TID 06/04/17 [History] Levothyroxine [Synthroid] 88 mcg PO DAILY 06/04/17 [History] Pantoprazole Sodium [Protonix] 40 mg PO DAILY 06/04/17 [History] Simvastatin [Zocor] 10 mg PO BEDTIME 06/04/17 [History] amLODIPine [Norvasc] 2.5 mg PO DAILY 06/04/17 [History] cloZAPine [Clozapine] 200 mg PO QPM 06/04/17 [History] Saccharomyces Boulardii [Florastor] 250 mg PO BID #60 cap 06/13/17 [Rx] Cephalexin 500 mg PO QID 11/15/17 [History] Clotrimazole [Lotrimin AF] 1 applic TOP BID 11/15/17 [History] Iron Aspgly&Ps/C/B12/Fa/Ca/Suc [Ferrex 150 Forte Plus] 150 mg PO DAILY 11/15/17 [History] Triamcinolone Acetonide 1 applic TOP TID 11/15/17 [History] cloZAPine [Clozaril] 200 mg PO DAILY 11/15/17 [History] - CURRENT (IN HOUSE) MEDS Current Meds: Current Medications Acetaminophen (Tylenol) 650 mg PO Q4H PRN PRN Reason: Pain (Mild 1-3)/fever Amlodipine Besylate (Norvasc) 2.5 mg PO DAILY [facility] Last Admin: 11/18/17 08:02 Dose: 2.5 mg Atenolol (Tenormin) 25 mg PO DAILY [facility] Last Admin: 11/18/17 08:02 Dose: 25 mg Bisacodyl (Dulcolax) 5 mg PO DAILY PRN PRN Reason: Constipation Clozapine (Clozapine) 200 mg PO DAILY [facility] Last Admin: 11/18/17 08:01 Dose: 200 mg Clozapine (Clozapine) 200 mg PO DAILY@1600 [facility] Last Admin: 11/17/17 15:04 Dose: 200 mg Clozapine (Clozapine) 300 mg PO BEDTIME [facility] Last Admin: 11/17/17 21:15 Dose: 300 mg Clozapine (Clozapine) 50 mg PO BEDTIME [facility] Last Admin: 11/17/17 21:18 Dose: 50 mg Docusate Sodium (Colace) 100 mg PO BID PRN PRN Reason: Constipation Cefepime HCl 2 gm/ Premix 50 mls @ 100 mls/hr IV Q12H [facility] Clindamycin Phosphate 900 mg/ (Sodium Chloride) 106 mls @ 212 mls/hr IV Q6H [facility] Meropenem 500 mg/ Sodium (Chloride) 100 mls @ 200 mls/hr IV Q6H [facility] Latanoprost (Xalatan 0.005% Ophth Soln) 0 ml EYEBOTH BEDTIME [facility] Last Admin: 11/17/17 21:19 Dose: 1 drop Levothyroxine Sodium (Synthroid) 88 mcg PO ACBRK [facility] Last Admin: 11/18/17 06:25 Dose: 88 mcg Lorazepam (Ativan) 0.5 mg PO TID [facility] Last Admin: 11/18/17 08:01 Dose: 0.5 mg Magnesium Hydroxide (Milk Of Magnesia) 30 ml PO Q12H PRN PRN Reason: Constipation Nystatin (Nystop) 0 gm TOP TID [facility] Last Admin: 11/18/17 08:03 Dose: 1 applic Ondansetron HCl (Zofran Odt) 4 mg PO Q4H PRN PRN Reason: nausea, able to take PO Ondansetron HCl (Zofran) 4 mg IV Q4H PRN PRN Reason: Nausea/Vomiting Oral Electrolytes (Thermotabs) 1 each PO TID@0600,1200,2100 [facility] Last Admin: 11/18/17 12:17 Dose: 1 each Pantoprazole Sodium (Protonix) 40 mg PO DAILY@0700 [facility] Last Admin: 11/18/17 08:02 Dose: 40 mg Lamisil 250 Mg ( (Terbinafine)) 0 each PO DAILY [facility] Last Admin: 11/18/17 08:03 Dose: 1 each Polyethylene Glycol (Miralax) 17 gm PO DAILY PRN PRN Reason: Constipation Polysaccharide Iron Complex (Ferrex 150) 150 mg PO DAILY [facility] Last Admin: 11/18/17 08:02 Dose: 150 mg Saccharomyces Boulardii (Florastor) 250 mg PO BID [facility] Last Admin: 11/18/17 08:01 Dose: 250 mg Senna/Docusate Sodium (Senna Plus) 1 tab PO BID PRN PRN Reason: Constipation Simvastatin (Zocor) 10 mg PO BEDTIME [facility] Last Admin: 11/17/17 21:16 Dose: 10 mg Sodium Chloride (Saline Flush) 10 ml FLUSH ASDIRECTED PRN PRN Reason: Keep Vein Open Last Admin: 11/15/17 16:35 Dose: 10 ml Discontinued Medications Bacitracin (Bacitracin Oint 1 Gm) 1 dose TOP ONETIME [facility] Bacitracin (Bacitracin Oint 1 Gm) 1 dose TOP DAILY [facility] Last Admin: 11/15/17 21:05 Dose: Not Given Bacitracin (Bacitracin Oint) 0 gm TOP DAILY [facility] Last Admin: 11/16/17 09:40 Dose: 1 applic Clotrimazole (Lotrimin Af 1% Crm) 0 gm TOP BID [facility] Last Admin: 11/16/17 09:41 Dose: 1 applic Clozapine (Clozapine) 350 mg PO BEDTIME [facility] Last Admin: 11/15/17 20:53 Dose: 350 mg Doxycycline Hyclate (Vibramycin) 200 mg PO ONETIME ONE Stop: 11/15/17 18:47 Last Admin: 11/15/17 20:52 Dose: 200 mg Furosemide (Lasix) 20 mg IVPUSH NOW ONE Stop: 11/17/17 11:01 Last Admin: 11/17/17 11:22 Dose: 20 mg Ceftriaxone Sodium 2 gm/ (Sodium Chloride) 100 mls @ 100 mls/hr IV Q24H [facility] Last Admin: 11/15/17 16:55 Dose: 100 mls/hr Vancomycin HCl 1 gm/Vancomycin HCl 250 mg/ Sodium Chloride 250 mls @ 166.512 mls/hr IV Q12H [facility] Last Admin: 11/18/17 08:03 Dose: Not Given Sodium Chloride (Normal Saline) 1,000 mls @ 125 mls/hr IV ASDIRECTED [facility] Last Admin: 11/17/17 05:16 Dose: 125 mls/hr Ceftriaxone Sodium 2 gm/ (Sodium Chloride) 100 mls @ 200 mls/hr IV Q24H [facility] Last Admin: 11/17/17 16:52 Dose: 200 mls/hr Morphine Sulfate (Morphine) 2 mg IVPUSH Q2H PRN PRN Reason: Pain (severe 7-10) Stop: 11/16/17 19:13 Non-Formulary Medication (Nf Drug) 250 each PO DAILY [facility] Nystatin (Nystop) 15 gm TOP TID PRN PRN Reason: Anti-fungal Last Admin: 11/17/17 08:43 Dose: 1 applic Oxycodone/Acetaminophen (Percocet 325-5 Mg) 1 tab PO Q4H PRN PRN Reason: Pain (moderate 4-6) Pantoprazole Sodium (Protonix Iv) 40 mg IVPUSH DAILY@0700 [facility] Last Admin: 11/18/17 06:28 Dose: Not Given Triamcinolone Acetonide (Triamcinolone Acetonide 0.1% Crm) gm TOP TID [facility] Vancomycin HCl (Pharmacy To Dose - Vancomycin) 0 dose .XX ASDIRECTED PRN PRN Reason: RX TO DOSE VANCOMYCIN
[2017-11-18] MEDS: Cefepime 2 GM in Premix Bag 1 BAG IV SCH (13:48)
[2017-11-18] MEDS: Clindamycin Phosphate 900 MG in Sodium Chloride 0.9% 100 ML IV SCH ×2 (13:48→19:08)
[2017-11-18] MEDS: Meropenem 500 MG in Sodium Chloride 0.9% 100 ML IV SCH ×2 (15:05→20:27)
[2017-11-18] MEDS: Simvastatin 10 MG Tab PO SCH (20:28)
[2017-11-18] MEDS: Latanoprost 0.005% Ophth Soln 2.5 ML Bottle EYEBOTH SCH (20:29)
[2017-11-19] MEDS: Cefepime 2 GM in Premix Bag 1 BAG IV SCH (01:32)
[2017-11-19] MEDS: Clindamycin Phosphate 900 MG in Sodium Chloride 0.9% 100 ML IV SCH ×2 (01:32→06:53)
[2017-11-19] MEDS: Meropenem 500 MG in Sodium Chloride 0.9% 100 ML IV SCH ×4 (02:19→20:28)
[2017-11-19] MEDS: Levothyroxine 88 MCG Tab PO SCH (05:18)
[2017-11-19] MEDS: Potassium Chloride/Sodium Chloride Tab PO SCH ×3 (05:18→20:25)
[2017-11-19] MEDS: Pantoprazole 40 MG Tab.CR PO SCH (06:22)
[2017-11-19] MEDS ORDERED: Propofol 200 MG/20 ML SDV ONE (07:38)
[2017-11-19] MEDS ORDERED: Midazolam 1 MG/ML 2 ML SDV ONE (07:39)
[2017-11-19] MEDS ORDERED: Lidocaine 1% 4 ML ONE (07:40)
[2017-11-19] MEDS ORDERED: fentaNYL 100 MCG/2 ML SDV ONE (07:49)
--- NOTE | 2017-11-19 08:15 | PCM48HPAN ---
Post Anesthesia Note - EVALUATION WITHIN 48HRS OF ANESTHETIC Vital Signs in Normal Range: Yes Patient Participated in Evaluation: Yes Respiratory Function Stable: Yes Airway Patent: Yes Cardiovascular Function Stable: Yes Hydration Status Stable: Yes Pain Control Satisfactory: Yes Nausea and Vomiting Control Satisfactory: Yes Mental Status Recovered: Yes
--- NOTE | 2017-11-19 08:40 | CR ---
Chest: Portable view of the chest was obtained. Study centered to the right side of the chest. Comparison: Previous chest x-ray performed earlier on the same day (8:32 AM). PICC line has been advanced. Tip still lies within the superior vena cava in satisfactory position. Visualized lungs are clear. Impression: 1. PICC line has been advanced but still lies within superior vena cava in satisfactory position. Diagnostic code #2
--- NOTE | 2017-11-19 08:40 | CR ---
Chest: Single portable view of the chest was obtained centered to the right side. PICC line is seen. Tip lies within the superior vena cava in satisfactory position. Visualized lungs are clear. Impression: 1. Tip of PICC line within the superior vena cava. Diagnostic code #2
--- NOTE | 2017-11-19 08:49 | PCM.SN ---
- Free Text/Narrative Note: PICC Insertion under anesthesia Date: 11-19-17 Start: 744 Stop: [address] Cummins for PICC placement for prison antibiotic use. Chart reviewed. Patient educated. Family and patient agreed to proceed. Consent signed. Site cleansed with ChloraPrep. Lidocaine 1% local anesthetic injected prior to 20ga IV catheter insertion under ultrasound guidance. Sterile gown, gloves and drape used. 5fr Gro[place]ong NXT ClearVue double lumen PICC inserted 42cm per sterile technique right proximal antecubital. Secured with snylon sutures x2. Flushes well with NaCl with good blood return. Dressed with opsite with CHG. Chest Xray taken. Confirmed SVC placement per radiologist. Tevin Freeman [employer] OPERATOR
[2017-11-19] MEDS: LORazepam 0.5 MG Tab PO SCH ×3 (09:06→20:25)
[2017-11-19] MEDS: Iron Polysaccharides Complex 150 MG Cap PO SCH (09:06)
[2017-11-19] MEDS: cloZAPine 100 MG Tab PO SCH ×3 (09:06→20:22)
[2017-11-19] MEDS: amLODIPine 2.5 MG Tab PO SCH (09:07)
[2017-11-19] MEDS: Atenolol 25 MG Tab PO SCH (09:07)
[2017-11-19] MEDS: Saccharomyces Boulardii (Probiotic) 250 MG Cap PO SCH ×2 (09:08→20:26)
[2017-11-19] MEDS: LAMISIL PO SCH (09:08)
[2017-11-19] MEDS: Nystatin Topical Powder 15 GM Bottle TOP SCH ×3 (09:09→20:40)
[2017-11-19] MEDS ORDERED: Cefepime 2 GM in Premix Bag 1 BAG IV SCH (10:45)
[2017-11-19] MEDS: Levofloxacin/Dextrose 5%-Water 750 MG in Premix Bag 1 BAG IV SCH (13:40)
--- NOTE | 2017-11-19 13:42 | PCM.PN ---
- General Info Date of Service: 11/19/17 Functional Status: Reports: Tolerating Diet, Ambulating, Urinating - Review of Systems General: Reports: Weakness HEENT: Reports: No Symptoms Pulmonary: Reports: No Symptoms Cardiovascular: Reports: No Symptoms Gastrointestinal: Reports: No Symptoms Genitourinary: Reports: No Symptoms Musculoskeletal: Reports: No Symptoms Skin: Reports: No Symptoms Neurological: Reports: No Symptoms Psychiatric: Reports: No Symptoms - Patient Data Vitals - Most Recent: Last Vital Signs Temp 36.7 C 11/19/17 10:14 Pulse 66 11/19/17 10:14 Resp 16 11/19/17 10:14 BP 116/39 L 11/19/17 10:14 Pulse Ox 100 11/19/17 10:14 Weight - Most Recent: 78.608 kg I&O - Last 24 Hours: Intake & Output 11/18/17 11/19/17 11/19/17 22:59 06:59 14:59 Intake Total 4876 2756 600 Output Total 3600 Balance 1276 2756 600 Lab Results Last 24 Hours: Laboratory Results - last 24 hr 11/19/17 11/19/17 Range/Units 05:40 05:40 WBC 7.30 (3.98-10.04) K/mm3 RBC 3.22 L (3.98-5.22) M/mm3 Hgb 8.4 L (11.2-15.7) gm/L Hct 26.0 L (34.1-44.9) % MCV 80.7 (79.4-94.8) fl MCH 26.1 (25.6-32.2) pg MCHC 32.3 (32.2-35.5) g/dl RDW Std Deviation 48.0 H (36.4-46.3) fL Plt Count 434 H (182-369) K/mm3 MPV 8.1 L (9.4-12.3) fl Neut % (Auto) 65.5 (34.0-71.1) % Lymph % (Auto) 14.7 L (19.3-51.7) % [place] % (Auto) 10.5 (4.7-12.5) % Eos % (Auto) 8.5 H (0.7-5.8) Baso % (Auto) 0.5 (0.1-1.2) % Neut # (Auto) 4.78 (1.56-6.13) K/mm3 Lymph # (Auto) 1.07 L (1.18-3.74) K/mm3 [place] # (Auto) 0.77 H (0.24-0.36) K/mm3 Eos # (Auto) 0.62 H (0.04-0.36) K/mm3 Baso # (Auto) 0.04 (0.01-0.08) K/mm3 Sodium 131 L (136-145) mEq/L Potassium 3.5 (3.5-5.1) mEq/L Chloride 97 L (98-107) mEq/L Carbon Dioxide 27 (21-32) mEq/L Anion Gap 10.5 (5-15) BUN 9 (7-18) mg/dL Creatinine 0.8 (0.55-1.02) mg/dL Est Cr Clr Drug Dosing 65.61 mL/min Estimated GFR (MDRD) > 60 (>60) mL/min BUN/Creatinine Ratio 11.3 L (14-18) Glucose 92 (80-115) mg/dL Calcium 8.3 L (8.5-10.1) mg/dL Magnesium 1.9 (1.8-2.4) mg/dl Navdeep Results Last 24 Hours: Microbiology 11/15/17 16:55 Ear Culture - Final Ear, Unspecified Pseudomonas Aeruginosa Beta Streptococcus Group G 11/15/17 16:00 Wound Culture - Final Shoulder, Right Staphylococcus Aureus Pseudomonas Aeruginosa 11/15/17 16:00 MRSA Culture - Final Groin, Right NO MRSA ISOLATED 11/15/17 16:00 Wound Culture - Final Neck Staphylococcus Aureus Pseudomonas Aeruginosa Beta Streptococcus Group G Med Orders - Current: Current Medications Acetaminophen (Tylenol) 650 mg PO Q4H PRN PRN Reason: Pain (Mild 1-3)/fever Amlodipine Besylate (Norvasc) 2.5 mg PO DAILY [facility] Last Admin: 11/19/17 09:07 Dose: 2.5 mg Atenolol (Tenormin) 25 mg PO DAILY [facility] Last Admin: 11/19/17 09:07 Dose: 25 mg Bisacodyl (Dulcolax) 5 mg PO DAILY PRN PRN Reason: Constipation Clozapine (Clozapine) 200 mg PO DAILY [facility] Last Admin: 11/19/17 09:06 Dose: 200 mg Clozapine (Clozapine) 200 mg PO DAILY@1600 [facility] Last Admin: 11/18/17 16:32 Dose: 200 mg Clozapine (Clozapine) 300 mg PO BEDTIME [facility] Last Admin: 11/18/17 20:28 Dose: 300 mg Clozapine (Clozapine) 50 mg PO BEDTIME [facility] Last Admin: 11/18/17 20:27 Dose: 50 mg Docusate Sodium (Colace) 100 mg PO BID PRN PRN Reason: Constipation Meropenem 500 mg/ Sodium (Chloride) 100 mls @ 200 mls/hr IV Q6H [facility] Last Admin: 11/19/17 09:06 Dose: 200 mls/hr Levofloxacin/Dextrose 750 mg/ (Premix) 150 mls @ 100 mls/hr IV Q24H [facility] Stop: 11/20/17 13:29 Latanoprost (Xalatan 0.005% Ophth Soln) 0 ml EYEBOTH BEDTIME [facility] Last Admin: 11/18/17 20:29 Dose: 1 drop Levofloxacin (Levaquin) 750 mg PO Q24H [facility] Levothyroxine Sodium (Synthroid) 88 mcg PO ACBRK [facility] Last Admin: 11/19/17 05:18 Dose: Not Given Lorazepam (Ativan) 0.5 mg PO TID [facility] Last Admin: 11/19/17 09:06 Dose: 0.5 mg Magnesium Hydroxide (Milk Of Magnesia) 30 ml PO Q12H PRN PRN Reason: Constipation Nystatin (Nystop) 0 gm TOP TID [facility] Last Admin: 11/19/17 09:09 Dose: 1 applic Ondansetron HCl (Zofran Odt) 4 mg PO Q4H PRN PRN Reason: nausea, able to take PO Ondansetron HCl (Zofran) 4 mg IV Q4H PRN PRN Reason: Nausea/Vomiting Oral Electrolytes (Thermotabs) 1 each PO TID@0600,1200,2100 [facility] Last Admin: 11/19/17 05:18 Dose: Not Given Pantoprazole Sodium (Protonix) 40 mg PO DAILY@0700 [facility] Last Admin: 11/19/17 06:22 Dose: Not Given Lamisil 250 Mg ( (Terbinafine)) 0 each PO DAILY [facility] Last Admin: 11/19/17 09:08 Dose: 1 each Polyethylene Glycol (Miralax) 17 gm PO DAILY PRN PRN Reason: Constipation Polysaccharide Iron Complex (Ferrex 150) 150 mg PO DAILY [facility] Last Admin: 11/19/17 09:06 Dose: 150 mg Saccharomyces Boulardii (Florastor) 250 mg PO BID [facility] Last Admin: 11/19/17 09:08 Dose: 250 mg Senna/Docusate Sodium (Senna Plus) 1 tab PO BID PRN PRN Reason: Constipation Simvastatin (Zocor) 10 mg PO BEDTIME [facility] Last Admin: 11/18/17 20:28 Dose: 10 mg Sodium Chloride (Saline Flush) 10 ml FLUSH ASDIRECTED PRN PRN Reason: Keep Vein Open Last Admin: 11/15/17 16:35 Dose: 10 ml Discontinued Medications Bacitracin (Bacitracin Oint 1 Gm) 1 dose TOP ONETIME [facility] Bacitracin (Bacitracin Oint 1 Gm) 1 dose TOP DAILY [facility] Last Admin: 11/15/17 21:05 Dose: Not Given Bacitracin (Bacitracin Oint) 0 gm TOP DAILY [facility] Last Admin: 11/16/17 09:40 Dose: 1 applic Clotrimazole (Lotrimin Af 1% Crm) 0 gm TOP BID [facility] Last Admin: 11/16/17 09:41 Dose: 1 applic Clozapine (Clozapine) 350 mg PO BEDTIME [facility] Last Admin: 11/15/17 20:53 Dose: 350 mg Doxycycline Hyclate (Vibramycin) 200 mg PO ONETIME ONE Stop: 11/15/17 18:47 Last Admin: 11/15/17 20:52 Dose: 200 mg Fentanyl (Sublimaze) Confirm Administered Dose 100 mcg .ROUTE .[facility]-MED ONE Stop: 11/19/17 07:50 Furosemide (Lasix) 20 mg IVPUSH NOW ONE Stop: 11/17/17 11:01 Last Admin: 11/17/17 11:22 Dose: 20 mg Ceftriaxone Sodium 2 gm/ (Sodium Chloride) 100 mls @ 100 mls/hr IV Q24H [facility] Last Admin: 11/15/17 16:55 Dose: 100 mls/hr Vancomycin HCl 1 gm/Vancomycin HCl 250 mg/ Sodium Chloride 250 mls @ 166.512 mls/hr IV Q12H [facility] Last Admin: 11/18/17 08:03 Dose: Not Given Sodium Chloride (Normal Saline) 1,000 mls @ 125 mls/hr IV ASDIRECTED [facility] Last Admin: 11/17/17 05:16 Dose: 125 mls/hr Ceftriaxone Sodium 2 gm/ (Sodium Chloride) 100 mls @ 200 mls/hr IV Q24H [facility] Last Admin: 11/17/17 16:52 Dose: 200 mls/hr Cefepime HCl 2 gm/ Premix 50 mls @ 100 mls/hr IV Q12H [facility] Last Admin: 11/19/17 01:32 Dose: 100 mls/hr Clindamycin Phosphate 900 mg/ (Sodium Chloride) 106 mls @ 212 mls/hr IV Q6H [facility] Last Admin: 11/19/17 06:53 Dose: 212 mls/hr Lidocaine HCl (Xylocaine-Mpf 1%) Confirm Administered Dose 4 mls @ as directed .ROUTE .[facility] ONE Stop: 11/19/17 07:41 Cefepime HCl 2 gm/ Premix 50 mls @ 100 mls/hr IV Q12H [facility] Midazolam HCl (Versed 1 Mg/Ml) Confirm Administered Dose 2 mg .ROUTE .[facility] ONE Stop: 11/19/17 07:40 Morphine Sulfate (Morphine) 2 mg IVPUSH Q2H PRN PRN Reason: Pain (severe 7-10) Stop: 11/16/17 19:13 Non-Formulary Medication (Nf Drug) 250 each PO DAILY [facility] Nystatin (Nystop) 15 gm TOP TID PRN PRN Reason: Anti-fungal Last Admin: 11/17/17 08:43 Dose: 1 applic Oxycodone/Acetaminophen (Percocet 325-5 Mg) 1 tab PO Q4H PRN PRN Reason: Pain (moderate 4-6) Pantoprazole Sodium (Protonix Iv) 40 mg IVPUSH DAILY@0700 [facility] Last Admin: 11/18/17 06:28 Dose: Not Given Propofol (Diprivan 20 Ml) Confirm Administered Dose 200 mg .ROUTE .[facility]-MED ONE Stop: 11/19/17 07:39 Triamcinolone Acetonide (Triamcinolone Acetonide 0.1% Crm) gm TOP TID [facility] Vancomycin HCl (Pharmacy To Dose - Vancomycin) 0 dose .XX ASDIRECTED PRN PRN Reason: RX TO DOSE VANCOMYCIN - Exam Quality Assessment: DVT Prophylaxis General: Alert, Oriented, Cooperative, No Acute Distress HEENT: Pupils Equal, Pupils Reactive, EOMI Neck: Trachea Midline, No JVD Lungs: Normal Respiratory Effort Cardiovascular: Regular Rate, Regular Rhythm GI/Abdominal Exam: Normal Bowel Sounds, Soft, Non-Tender, No Organomegaly, No Distention (Female) Exam: Deferred Back Exam: Normal Inspection Extremities: Normal Inspection, Normal Capillary Refill Skin: Warm Neurological: No New Focal Deficit Psy/Mental Status: Alert, Anxious - Problem List Review Problem List Initiated/Reviewed/Updated: Yes - My Orders Last 24 Hours: My Active Orders 11/18/17 14:00 Meropenem [Merrem] 500 mg Sodium Chloride 0.9% [Normal Saline] 100 ml IV Q6H 11/18/17 Dinner NPO After Midnight [Nothing per Oral After Midnight Diet] [DIET] 11/19/17 05:40 MISC TEST Routine 11/19/17 12:00 Levofloxacin/Dextrose 5%-Water [Levaquin in D5W 750 MG/150 ML] 750 mg Premix Bag 1 bag IV Q24H 11/21/17 12:00 Levofloxacin [Levaquin] 750 mg PO Q24H - Plan Plan:: I/P: Acute: Extensive Rash/Impetigo--new IV site; PICC Ana, 11/18/17 * Acute on Chronic; h/o strep infection * Risk Factors: Unable to care for self 2/2 schizophrenia, elderly mother cannot help, non compliant with medical treatment, poor hygiene * Inflammation, crusting, weeping: * Right willis-face, scalp, right ear with weeping, anterior lateral neck and shoulder with weeping, intertrigo under both breasts, 4.5cm lesion at umbilicus , severe intertrigo groin with weeping * WBC 11.49, ESR 34, CRP 2.5 * MRSA culture and PCR pending * Cultures of right ear, right shoulder and right groin pending * Rocephin 2g IV given in ED--> D/C * Doxycycline 200mg PO given in ED--> D/C * Vancomycin, pharmacy to dose * Lamisil 250 Q daily recommended x 3 weeks for possible kelvin or tinea--> do not carry this here; family will bring in * Bacitracin ointment Q daily * Daily assistance with showers and hygiene * Wound Care; change dressings daily * Recommend F/U with Dermatology * CM/SW for placement--> unable to take care of self Poor Hygiene * Most likely 2/2 Schizophrenia * Does not bathe regularly; has h/o denying showers in past hospital visits * Assist with showers and hygiene while here Medical Non-Compliance * Most likely 2/2 Schizophrenia * h/o seeing e commerce architect Dr. Dudley--> non compliant with medical treatment of rash * h/o denying showers and walking in past hospital visits Chronic: Schizophrenia--> Continue Clozapine h/o Bilateral partial frontal lobectomy Anxiety Depression HTN HLD GERD Seizures Hypothyroid --> TSH 1.98 in ED Anemia --> Hgb 9 in ED Psoriasis Plan: Merepenem, levoquin; ATB for 14 days. Contact Precautions --> R/O MRSA She remains stable and continues to improve clinically Other orders as indicated above Continue home medications Heart Healthy Diet PT/OT DVT Prophylaxis: SCDs GI Prophylaxis: Protonix Ambulated as tolerated CM/SW for discharge planning--> Will most likely need to be placed d/t schizophrenia and dying mother; unable to take care of self--> Looking into [facility] Code Status: Full code; PCP: Dr. Neetu Bryson Disposition is needed, patient has limitations and her Mother has a terminal illness. LOS>96 hours, receiving IV ATB.
[2017-11-19] MEDS: Simvastatin 10 MG Tab PO SCH (20:26)
[2017-11-19] MEDS: Latanoprost 0.005% Ophth Soln 2.5 ML Bottle EYEBOTH SCH (20:37)
[2017-11-20] MEDS: Meropenem 500 MG in Sodium Chloride 0.9% 100 ML IV SCH ×4 (02:27→22:18)
[2017-11-20] MEDS: Levothyroxine 88 MCG Tab PO SCH (06:10)
[2017-11-20] MEDS: Potassium Chloride/Sodium Chloride Tab PO SCH ×3 (06:10→22:21)
[2017-11-20] MEDS: Pantoprazole 40 MG Tab.CR PO SCH (06:11)
[2017-11-20] MEDS: Iron Polysaccharides Complex 150 MG Cap PO SCH (08:53)
[2017-11-20] MEDS: cloZAPine 100 MG Tab PO SCH ×3 (08:54→22:19)
[2017-11-20] MEDS: Atenolol 25 MG Tab PO SCH (08:57)
[2017-11-20] MEDS: LORazepam 0.5 MG Tab PO SCH ×3 (08:58→22:19)
[2017-11-20] MEDS: amLODIPine 2.5 MG Tab PO SCH (08:59)
[2017-11-20] MEDS: LAMISIL PO SCH (09:00)
[2017-11-20] MEDS: Saccharomyces Boulardii (Probiotic) 250 MG Cap PO SCH ×2 (09:00→22:21)
[2017-11-20] MEDS: Nystatin Topical Powder 15 GM Bottle TOP SCH ×3 (09:02→22:22)
[2017-11-20] MEDS: Levofloxacin/Dextrose 5%-Water 750 MG in Premix Bag 1 BAG IV SCH (13:33)
--- NOTE | 2017-11-20 15:25 | PCM.PN ---
- General Info Date of Service: 11/20/17 Functional Status: Reports: Tolerating Diet, Ambulating, Urinating - Review of Systems General: Reports: No Symptoms HEENT: Reports: No Symptoms Pulmonary: Reports: No Symptoms Cardiovascular: Reports: No Symptoms Gastrointestinal: Reports: No Symptoms Genitourinary: Reports: No Symptoms Musculoskeletal: Reports: No Symptoms Skin: Reports: No Symptoms Neurological: Reports: No Symptoms Psychiatric: Reports: No Symptoms - Patient Data Vitals - Most Recent: Last Vital Signs Temp 36.4 C 11/20/17 08:53 Pulse 83 11/20/17 08:57 Resp 16 11/20/17 08:53 BP 124/63 11/20/17 08:59 Pulse Ox 100 11/20/17 08:53 Weight - Most Recent: 78.426 kg I&O - Last 24 Hours: Intake & Output 11/20/17 11/20/17 11/20/17 06:59 14:59 22:59 Intake Total 2800 600 Output Total 1900 Balance 900 600 Lab Results Last 24 Hours: Laboratory Results - last 24 hr 11/20/17 11/20/17 Range/Units 06:06 06:06 WBC 11.20 H (3.98-10.04) K/mm3 RBC 3.72 L (3.98-5.22) M/mm3 Hgb 9.7 L (11.2-15.7) gm/L Hct 29.9 L (34.1-44.9) % MCV 80.4 (79.4-94.8) fl MCH 26.1 (25.6-32.2) pg MCHC 32.4 (32.2-35.5) g/dl RDW Std Deviation 48.5 H (36.4-46.3) fL Plt Count 404 H (182-369) K/mm3 MPV 8.1 L (9.4-12.3) fl Neut % (Auto) 67.5 (34.0-71.1) % Lymph % (Auto) 9.2 L (19.3-51.7) % [place] % (Auto) 11.9 (4.7-12.5) % Eos % (Auto) 10.5 H (0.7-5.8) Baso % (Auto) 0.5 (0.1-1.2) % Neut # (Auto) 7.56 H (1.56-6.13) K/mm3 Lymph # (Auto) 1.03 L (1.18-3.74) K/mm3 [place] # (Auto) 1.33 H (0.24-0.36) K/mm3 Eos # (Auto) 1.18 H (0.04-0.36) K/mm3 Baso # (Auto) 0.06 (0.01-0.08) K/mm3 Manual Slide Review Normal smear Sodium 134 L (136-145) mEq/L Potassium 4.0 (3.5-5.1) mEq/L Chloride 99 (98-107) mEq/L Carbon Dioxide 29 (21-32) mEq/L Anion Gap 10.0 (5-15) BUN 6 L (7-18) mg/dL Creatinine 0.8 (0.55-1.02) mg/dL Est Cr Clr Drug Dosing 65.61 mL/min Estimated GFR (MDRD) > 60 (>60) mL/min BUN/Creatinine Ratio 7.5 L (14-18) Glucose 90 (80-115) mg/dL Calcium 8.4 L (8.5-10.1) mg/dL Med Orders - Current: Current Medications Acetaminophen (Tylenol) 650 mg PO Q4H PRN PRN Reason: Pain (Mild 1-3)/fever Last Admin: 11/19/17 16:08 Dose: 650 mg Amlodipine Besylate (Norvasc) 2.5 mg PO DAILY [facility] Last Admin: 11/20/17 08:59 Dose: 2.5 mg Atenolol (Tenormin) 25 mg PO DAILY [facility] Last Admin: 11/20/17 08:57 Dose: 25 mg Bisacodyl (Dulcolax) 5 mg PO DAILY PRN PRN Reason: Constipation Clozapine (Clozapine) 200 mg PO DAILY [facility] Last Admin: 11/20/17 08:54 Dose: 200 mg Clozapine (Clozapine) 200 mg PO DAILY@1600 [facility] Last Admin: 11/19/17 16:03 Dose: 200 mg Clozapine (Clozapine) 300 mg PO BEDTIME [facility] Last Admin: 11/19/17 20:22 Dose: 300 mg Clozapine (Clozapine) 50 mg PO BEDTIME [facility] Last Admin: 11/19/17 20:24 Dose: 50 mg Docusate Sodium (Colace) 100 mg PO BID PRN PRN Reason: Constipation Meropenem 500 mg/ Sodium (Chloride) 100 mls @ 200 mls/hr IV Q6H [facility] Last Admin: 11/20/17 08:52 Dose: 200 mls/hr Latanoprost (Xalatan 0.005% Ophth Soln) 0 ml EYEBOTH BEDTIME [facility] Last Admin: 11/19/17 20:37 Dose: 1 drop Levofloxacin (Levaquin) 750 mg PO Q24H [facility] Levothyroxine Sodium (Synthroid) 88 mcg PO ACBRK [facility] Last Admin: 11/20/17 06:10 Dose: 88 mcg Lorazepam (Ativan) 0.5 mg PO TID [facility] Last Admin: 11/20/17 08:58 Dose: 0.5 mg Magnesium Hydroxide (Milk Of Magnesia) 30 ml PO Q12H PRN PRN Reason: Constipation Nystatin (Nystop) 0 gm TOP TID [facility] Last Admin: 11/20/17 09:02 Dose: 1 applic Ondansetron HCl (Zofran Odt) 4 mg PO Q4H PRN PRN Reason: nausea, able to take PO Ondansetron HCl (Zofran) 4 mg IV Q4H PRN PRN Reason: Nausea/Vomiting Oral Electrolytes (Thermotabs) 1 each PO TID@0600,1200,2100 [facility] Last Admin: 11/20/17 13:02 Dose: 1 each Pantoprazole Sodium (Protonix) 40 mg PO DAILY@0700 [facility] Last Admin: 11/20/17 06:11 Dose: 40 mg Lamisil 250 Mg ( (Terbinafine)) 0 each PO DAILY [facility] Last Admin: 11/20/17 09:00 Dose: 1 each Polyethylene Glycol (Miralax) 17 gm PO DAILY PRN PRN Reason: Constipation Polysaccharide Iron Complex (Ferrex 150) 150 mg PO DAILY [facility] Last Admin: 11/20/17 08:53 Dose: 150 mg Saccharomyces Boulardii (Florastor) 250 mg PO BID [facility] Last Admin: 11/20/17 09:00 Dose: 250 mg Senna/Docusate Sodium (Senna Plus) 1 tab PO BID PRN PRN Reason: Constipation Simvastatin (Zocor) 10 mg PO BEDTIME [facility] Last Admin: 11/19/17 20:26 Dose: 10 mg Sodium Chloride (Saline Flush) 10 ml FLUSH ASDIRECTED PRN PRN Reason: Keep Vein Open Last Admin: 11/15/17 16:35 Dose: 10 ml Discontinued Medications Bacitracin (Bacitracin Oint 1 Gm) 1 dose TOP ONETIME [facility] Bacitracin (Bacitracin Oint 1 Gm) 1 dose TOP DAILY [facility] Last Admin: 11/15/17 21:05 Dose: Not Given Bacitracin (Bacitracin Oint) 0 gm TOP DAILY [facility] Last Admin: 11/16/17 09:40 Dose: 1 applic Clotrimazole (Lotrimin Af 1% Crm) 0 gm TOP BID [facility] Last Admin: 11/16/17 09:41 Dose: 1 applic Clozapine (Clozapine) 350 mg PO BEDTIME [facility] Last Admin: 11/15/17 20:53 Dose: 350 mg Doxycycline Hyclate (Vibramycin) 200 mg PO ONETIME ONE Stop: 11/15/17 18:47 Last Admin: 11/15/17 20:52 Dose: 200 mg Fentanyl (Sublimaze) Confirm Administered Dose 100 mcg .ROUTE .STK-MED ONE Stop: 11/19/17 07:50 Furosemide (Lasix) 20 mg IVPUSH NOW ONE Stop: 11/17/17 11:01 Last Admin: 11/17/17 11:22 Dose: 20 mg Ceftriaxone Sodium 2 gm/ (Sodium Chloride) 100 mls @ 100 mls/hr IV Q24H [facility] Last Admin: 11/15/17 16:55 Dose: 100 mls/hr Vancomycin HCl 1 gm/Vancomycin HCl 250 mg/ Sodium Chloride 250 mls @ 166.512 mls/hr IV Q12H [facility] Last Admin: 11/18/17 08:03 Dose: Not Given Sodium Chloride (Normal Saline) 1,000 mls @ 125 mls/hr IV ASDIRECTED [facility] Last Admin: 11/17/17 05:16 Dose: 125 mls/hr Ceftriaxone Sodium 2 gm/ (Sodium Chloride) 100 mls @ 200 mls/hr IV Q24H [facility] Last Admin: 11/17/17 16:52 Dose: 200 mls/hr Cefepime HCl 2 gm/ Premix 50 mls @ 100 mls/hr IV Q12H [facility] Last Admin: 11/19/17 01:32 Dose: 100 mls/hr Clindamycin Phosphate 900 mg/ (Sodium Chloride) 106 mls @ 212 mls/hr IV Q6H [facility] Last Admin: 11/19/17 06:53 Dose: 212 mls/hr Lidocaine HCl (Xylocaine-Mpf 1%) Confirm Administered Dose 4 mls @ as directed .ROUTE .[facility]-MED ONE Stop: 11/19/17 07:41 Cefepime HCl 2 gm/ Premix 50 mls @ 100 mls/hr IV Q12H [facility] Levofloxacin/Dextrose 750 mg/ (Premix) 150 mls @ 100 mls/hr IV Q24H [facility] Stop: 11/20/17 13:29 Last Admin: 11/20/17 13:33 Dose: 100 mls/hr Midazolam HCl (Versed 1 Mg/Ml) Confirm Administered Dose 2 mg .ROUTE .[facility] ONE Stop: 11/19/17 07:40 Morphine Sulfate (Morphine) 2 mg IVPUSH Q2H PRN PRN Reason: Pain (severe 7-10) Stop: 11/16/17 19:13 Non-Formulary Medication (Nf Drug) 250 each PO DAILY [facility] Nystatin (Nystop) 15 gm TOP TID PRN PRN Reason: Anti-fungal Last Admin: 11/17/17 08:43 Dose: 1 applic Oxycodone/Acetaminophen (Percocet 325-5 Mg) 1 tab PO Q4H PRN PRN Reason: Pain (moderate 4-6) Pantoprazole Sodium (Protonix Iv) 40 mg IVPUSH DAILY@0700 [facility] Last Admin: 11/18/17 06:28 Dose: Not Given Propofol (Diprivan 20 Ml) Confirm Administered Dose 200 mg .ROUTE .[facility]MED ONE Stop: 11/19/17 07:39 Triamcinolone Acetonide (Triamcinolone Acetonide 0.1% Crm) gm TOP TID [facility] Vancomycin HCl (Pharmacy To Dose - Vancomycin) 0 dose .XX ASDIRECTED PRN PRN Reason: RX TO DOSE VANCOMYCIN - Exam Quality Assessment: DVT Prophylaxis General: Alert, Oriented, Cooperative, No Acute Distress HEENT: Pupils Equal, Pupils Reactive, EOMI Neck: Trachea Midline, No JVD Lungs: Normal Respiratory Effort Cardiovascular: Regular Rate, Regular Rhythm GI/Abdominal Exam: Normal Bowel Sounds, Soft, Non-Tender, No Organomegaly, No Distention (Female) Exam: Deferred Back Exam: Normal Inspection Extremities: Normal Inspection, No Pedal Edema, Normal Capillary Refill Skin: Warm Neurological: No New Focal Deficit Psy/Mental Status: Alert, Normal Affect, Normal Mood - Problem List Review Problem List Initiated/Reviewed/Updated: Yes - My Orders Last 24 Hours: My Active Orders 11/21/17 12:00 Levofloxacin [Levaquin] 750 mg PO Q24H - Plan Plan:: I/P: Acute: Extensive Rash/Impetigo--new IV site; PICC Tublaise, 11/18/17 * Acute on Chronic; h/o strep infection * Risk Factors: Unable to care for self 2/2 schizophrenia, elderly mother cannot help, non compliant with medical treatment, poor hygiene * Inflammation, crusting, weeping: * Right willis-face, scalp, right ear with weeping, anterior lateral neck and shoulder with weeping, intertrigo under both breasts, 4.5cm lesion at umbilicus , severe intertrigo groin with weeping * WBC 11.49, ESR 34, CRP 2.5 * MRSA culture and PCR pending * Cultures of right ear, right shoulder and right groin pending * Rocephin 2g IV given in ED--> D/C * Doxycycline 200mg PO given in ED--> D/C * Vancomycin, pharmacy to dose * Lamisil 250 Q daily recommended x 3 weeks for possible kelvin or tinea--> do not carry this here; family will bring in * Bacitracin ointment Q daily * Daily assistance with showers and hygiene * Wound Care; change dressings daily * Recommend F/U with Dermatology * CM/SW for placement--> unable to take care of self Poor Hygiene * Most likely 2/2 Schizophrenia * Does not bathe regularly; has h/o denying showers in past hospital visits * Assist with showers and hygiene while here Medical Non-Compliance * Most likely 2/2 Schizophrenia * h/o seeing sales financial analyst Dr. Dudley--> non compliant with medical treatment of rash * h/o denying showers and walking in past hospital visits Chronic: Schizophrenia--> Continue Clozapine; leevel is pending h/o Bilateral partial frontal lobectomy Anxiety Depression HTN HLD GERD Seizures Hypothyroid --> TSH 1.98 in ED Anemia --> Hgb 9 in ED Psoriasis Plan: CECILIA Vancfredrick, add Rocephin; dc Lamisil; Meropenem/Clinda/Cefepime--stopped; simplified regimen: Meropenem/Levoquin Contact Precautions --> R/O MRSA She remains stable and continues to improve clinically Other orders as indicated above Continue home medications Heart Healthy Diet PT/OT DVT Prophylaxis: SCDs GI Prophylaxis: Protonix Ambulated as tolerated CM/SW for discharge planning--> Will most likely need to be placed d/t schizophrenia and dying mother; unable to take care of self--> Looking into [facility] Code Status: Full code; PCP: Dr. Neetu Bryson Disposition is needed, patient has limitations and her Mother has a terminal illness. LOS>96 hours for IV ATBs; placement for chronic medical needs, PACE program.
[2017-11-20] MEDS: Latanoprost 0.005% Ophth Soln 2.5 ML Bottle EYEBOTH SCH (22:05)
[2017-11-20] MEDS: Simvastatin 10 MG Tab PO SCH (22:21)
[2017-11-21] MEDS: Meropenem 500 MG in Sodium Chloride 0.9% 100 ML IV SCH ×4 (02:56→21:24)
[2017-11-21] MEDS: Potassium Chloride/Sodium Chloride Tab PO SCH ×3 (06:28→21:30)
[2017-11-21] MEDS: Pantoprazole 40 MG Tab.CR PO SCH (06:28)
[2017-11-21] MEDS: Levothyroxine 88 MCG Tab PO SCH (06:28)
[2017-11-21] MEDS: Saccharomyces Boulardii (Probiotic) 250 MG Cap PO SCH ×2 (08:06→21:30)
[2017-11-21] MEDS: cloZAPine 100 MG Tab PO SCH ×3 (08:06→21:30)
[2017-11-21] MEDS: Iron Polysaccharides Complex 150 MG Cap PO SCH (08:06)
[2017-11-21] MEDS: Atenolol 25 MG Tab PO SCH (08:07)
[2017-11-21] MEDS: amLODIPine 2.5 MG Tab PO SCH (08:07)
[2017-11-21] MEDS: LORazepam 0.5 MG Tab PO SCH ×3 (08:07→21:29)
[2017-11-21] MEDS: LAMISIL PO SCH (08:08)
[2017-11-21] MEDS: Nystatin Topical Powder 15 GM Bottle TOP SCH ×3 (08:14→21:31)
[2017-11-21] MEDS ORDERED: Levofloxacin 750 MG Tab PO SCH (12:00)
--- NOTE | 2017-11-21 13:06 | PCM.PN ---
- General Info Date of Service: 11/21/17 Functional Status: Reports: Pain Controlled, Tolerating Diet, Ambulating, Urinating - Review of Systems General: Reports: Fatigue, Malaise HEENT: Reports: No Symptoms Pulmonary: Reports: No Symptoms Cardiovascular: Reports: No Symptoms Gastrointestinal: Reports: Abdominal Pain Genitourinary: Reports: No Symptoms Musculoskeletal: Reports: No Symptoms Skin: Reports: No Symptoms Neurological: Reports: No Symptoms Psychiatric: Reports: No Symptoms - Patient Data Vitals - Most Recent: Last Vital Signs Temp 36.8 C 11/21/17 08:05 Pulse 83 11/21/17 08:07 Resp 14 11/21/17 08:05 BP 137/75 11/21/17 08:07 Pulse Ox 100 11/21/17 08:05 Weight - Most Recent: 78.109 kg I&O - Last 24 Hours: Intake & Output 11/20/17 11/21/17 11/21/17 22:59 06:59 14:59 Intake Total 4610 2000 600 Output Total 1100 2100 Balance 3510 -100 600 Med Orders - Current: Current Medications Acetaminophen (Tylenol) 650 mg PO Q4H PRN PRN Reason: Pain (Mild 1-3)/fever Last Admin: 11/19/17 16:08 Dose: 650 mg Amlodipine Besylate (Norvasc) 2.5 mg PO DAILY [facility] Last Admin: 11/21/17 08:07 Dose: 2.5 mg Atenolol (Tenormin) 25 mg PO DAILY [facility] Last Admin: 11/21/17 08:07 Dose: 25 mg Bisacodyl (Dulcolax) 5 mg PO DAILY PRN PRN Reason: Constipation Clozapine (Clozapine) 200 mg PO DAILY [facility] Last Admin: 11/21/17 08:06 Dose: 200 mg Clozapine (Clozapine) 200 mg PO DAILY@1600 [facility] Last Admin: 11/20/17 15:25 Dose: 200 mg Clozapine (Clozapine) 300 mg PO BEDTIME [facility] Last Admin: 11/20/17 22:19 Dose: 300 mg Clozapine (Clozapine) 50 mg PO BEDTIME [facility] Last Admin: 11/20/17 22:21 Dose: 50 mg Docusate Sodium (Colace) 100 mg PO BID PRN PRN Reason: Constipation Meropenem 500 mg/ Sodium (Chloride) 100 mls @ 200 mls/hr IV Q6H [facility] Last Admin: 11/21/17 08:07 Dose: 200 mls/hr Latanoprost (Xalatan 0.005% Ophth Soln) 0 ml EYEBOTH BEDTIME [facility] Last Admin: 11/20/17 22:05 Dose: 1 drop Levofloxacin (Levaquin) 750 mg PO Q24H [facility] Last Admin: 11/21/17 11:25 Dose: 750 mg Levothyroxine Sodium (Synthroid) 88 mcg PO ACBRK [facility] Last Admin: 11/21/17 06:28 Dose: 88 mcg Lorazepam (Ativan) 0.5 mg PO TID [facility] Last Admin: 11/21/17 08:07 Dose: 0.5 mg Magnesium Hydroxide (Milk Of Magnesia) 30 ml PO Q12H PRN PRN Reason: Constipation Nystatin (Nystop) 0 gm TOP TID [facility] Last Admin: 11/21/17 08:14 Dose: 1 applic Ondansetron HCl (Zofran Odt) 4 mg PO Q4H PRN PRN Reason: nausea, able to take PO Ondansetron HCl (Zofran) 4 mg IV Q4H PRN PRN Reason: Nausea/Vomiting Oral Electrolytes (Thermotabs) 1 each PO TID@0600,1200,2100 [facility] Last Admin: 11/21/17 11:25 Dose: 1 each Pantoprazole Sodium (Protonix) 40 mg PO DAILY@0700 [facility] Last Admin: 11/21/17 06:28 Dose: 40 mg Lamisil 250 Mg ( (Terbinafine)) 0 each PO DAILY [facility] Last Admin: 11/21/17 08:08 Dose: 1 each Polyethylene Glycol (Miralax) 17 gm PO DAILY PRN PRN Reason: Constipation Polysaccharide Iron Complex (Ferrex 150) 150 mg PO DAILY [facility] Last Admin: 11/21/17 08:06 Dose: 150 mg Saccharomyces Boulardii (Florastor) 250 mg PO BID [facility] Last Admin: 11/21/17 08:06 Dose: 250 mg Senna/Docusate Sodium (Senna Plus) 1 tab PO BID PRN PRN Reason: Constipation Simvastatin (Zocor) 10 mg PO BEDTIME [facility] Last Admin: 11/20/17 22:21 Dose: 10 mg Sodium Chloride (Saline Flush) 10 ml FLUSH ASDIRECTED PRN PRN Reason: Keep Vein Open Last Admin: 11/15/17 16:35 Dose: 10 ml Discontinued Medications Bacitracin (Bacitracin Oint 1 Gm) 1 dose TOP ONETIME [facility] Bacitracin (Bacitracin Oint 1 Gm) 1 dose TOP DAILY [facility] Last Admin: 11/15/17 21:05 Dose: Not Given Bacitracin (Bacitracin Oint) 0 gm TOP DAILY [facility] Last Admin: 11/16/17 09:40 Dose: 1 applic Clotrimazole (Lotrimin Af 1% Crm) 0 gm TOP BID [facility] Last Admin: 11/16/17 09:41 Dose: 1 applic Clozapine (Clozapine) 350 mg PO BEDTIME [facility] Last Admin: 11/15/17 20:53 Dose: 350 mg Doxycycline Hyclate (Vibramycin) 200 mg PO ONETIME ONE Stop: 11/15/17 18:47 Last Admin: 11/15/17 20:52 Dose: 200 mg Fentanyl (Sublimaze) Confirm Administered Dose 100 mcg .ROUTE .STK-MED ONE Stop: 11/19/17 07:50 Furosemide (Lasix) 20 mg IVPUSH NOW ONE Stop: 11/17/17 11:01 Last Admin: 11/17/17 11:22 Dose: 20 mg Ceftriaxone Sodium 2 gm/ (Sodium Chloride) 100 mls @ 100 mls/hr IV Q24H [facility] Last Admin: 11/15/17 16:55 Dose: 100 mls/hr Vancomycin HCl 1 gm/Vancomycin HCl 250 mg/ Sodium Chloride 250 mls @ 166.512 mls/hr IV Q12H [facility] Last Admin: 11/18/17 08:03 Dose: Not Given Sodium Chloride (Normal Saline) 1,000 mls @ 125 mls/hr IV ASDIRECTED [facility] Last Admin: 11/17/17 05:16 Dose: 125 mls/hr Ceftriaxone Sodium 2 gm/ (Sodium Chloride) 100 mls @ 200 mls/hr IV Q24H [facility] Last Admin: 11/17/17 16:52 Dose: 200 mls/hr Cefepime HCl 2 gm/ Premix 50 mls @ 100 mls/hr IV Q12H [facility] Last Admin: 11/19/17 01:32 Dose: 100 mls/hr Clindamycin Phosphate 900 mg/ (Sodium Chloride) 106 mls @ 212 mls/hr IV Q6H [facility] Last Admin: 11/19/17 06:53 Dose: 212 mls/hr Lidocaine HCl (Xylocaine-Mpf 1%) Confirm Administered Dose 4 mls @ as directed .ROUTE .K-MED ONE Stop: 11/19/17 07:41 Cefepime HCl 2 gm/ Premix 50 mls @ 100 mls/hr IV Q12H [facility] Levofloxacin/Dextrose 750 mg/ (Premix) 150 mls @ 100 mls/hr IV Q24H [facility] Stop: 11/20/17 13:29 Last Admin: 11/20/17 13:33 Dose: 100 mls/hr Midazolam HCl (Versed 1 Mg/Ml) Confirm Administered Dose 2 mg .ROUTE .K-MED ONE Stop: 11/19/17 07:40 Morphine Sulfate (Morphine) 2 mg IVPUSH Q2H PRN PRN Reason: Pain (severe 7-10) Stop: 11/16/17 19:13 Non-Formulary Medication (Nf Drug) 250 each PO DAILY [facility] Nystatin (Nystop) 15 gm TOP TID PRN PRN Reason: Anti-fungal Last Admin: 11/17/17 08:43 Dose: 1 applic Oxycodone/Acetaminophen (Percocet 325-5 Mg) 1 tab PO Q4H PRN PRN Reason: Pain (moderate 4-6) Pantoprazole Sodium (Protonix Iv) 40 mg IVPUSH DAILY@0700 [facility] Last Admin: 11/18/17 06:28 Dose: Not Given Propofol (Diprivan 20 Ml) Confirm Administered Dose 200 mg .ROUTE .STK-MED ONE Stop: 11/19/17 07:39 Triamcinolone Acetonide (Triamcinolone Acetonide 0.1% Crm) gm TOP TID [facility] Vancomycin HCl (Pharmacy To Dose - Vancomycin) 0 dose .XX ASDIRECTED PRN PRN Reason: RX TO DOSE VANCOMYCIN - Exam Quality Assessment: DVT Prophylaxis General: Alert, Oriented, Cooperative HEENT: Pupils Equal, Pupils Reactive, EOMI Neck: Trachea Midline, No JVD Lungs: Clear to Auscultation, Normal Respiratory Effort Cardiovascular: Regular Rate, Regular Rhythm GI/Abdominal Exam: Normal Bowel Sounds, Soft, Non-Tender, No Organomegaly, No Distention (Female) Exam: Deferred Back Exam: Normal Inspection Extremities: Normal Inspection, Normal Range of Motion, Normal Capillary Refill Skin: Warm Psy/Mental Status: Alert, Normal Affect, Normal Mood - Problem List Review Problem List Initiated/Reviewed/Updated: Yes - My Orders Last 24 Hours: My Active Orders 11/21/17 12:00 Levofloxacin [Levaquin] 750 mg PO Q24H - Plan Plan:: I/P: Acute: Extensive Rash/Impetigo--new IV site; PICC 11/18/17 * Acute on Chronic; h/o strep infection * Risk Factors: Unable to care for self 2/2 schizophrenia, elderly mother cannot help, non compliant with medical treatment, poor hygiene * Inflammation, crusting, weeping: * Right willis-face, scalp, right ear with weeping, anterior lateral neck and shoulder with weeping, intertrigo under both breasts, 4.5cm lesion at umbilicus , severe intertrigo groin with weeping * WBC 11.49, ESR 34, CRP 2.5 * MRSA culture and PCR pending * Cultures of right ear, right shoulder and right groin pending * Rocephin 2g IV given in ED--> D/C * Doxycycline 200mg PO given in ED--> D/C * Vancomycin, pharmacy to dose * Lamisil 250 Q daily recommended x 3 weeks for possible kelvin or tinea--> do not carry this here; family will bring in * Bacitracin ointment Q daily * Daily assistance with showers and hygiene * Wound Care; change dressings daily * Recommend F/U with Dermatology * CM/SW for placement--> unable to take care of self Poor Hygiene * Most likely 2/2 Schizophrenia * Does not bathe regularly; has h/o denying showers in past hospital visits * Assist with showers and hygiene while here Medical Non-Compliance * Most likely 2/2 Schizophrenia * h/o seeing public speaker Dr. Dudley--> non compliant with medical treatment of rash * h/o denying showers and walking in past hospital visits Chronic: Schizophrenia--> Continue Clozapine; leevel is pending h/o Bilateral partial frontal lobectomy Anxiety Depression HTN HLD GERD Seizures Hypothyroid --> TSH 1.98 in ED Anemia --> Hgb 9 in ED Psoriasis Plan: [facility]ECIL[facility] Vancfredrick, add Rocephin; dc Lamisil; Meropenem/Clinda/Cefepime--stopped; simplified regimen: Meropenem/Levoquin Contact Precautions --> R/O MRSA She remains stable and continues to improve clinically Other orders as indicated above Continue home medications Heart Healthy Diet PT/OT DVT Prophylaxis: SCDs GI Prophylaxis: Protonix Ambulated as tolerated CM/SW for discharge planning--> Will most likely need to be placed d/t schizophrenia and dying mother; unable to take care of self--> Looking into [facility] Code Status: Full code; PCP: Dr. Neetu Bryson Disposition is needed, patient has limitations and her Mother has a terminal illness. LOS>96 hours for IV ATBs; placement for chronic medical needs, PACE program.
[2017-11-21] MEDS: Simvastatin 10 MG Tab PO SCH (21:30)
[2017-11-21] MEDS: Latanoprost 0.005% Ophth Soln 2.5 ML Bottle EYEBOTH SCH (21:33)
[2017-11-22] MEDS: Meropenem 500 MG in Sodium Chloride 0.9% 100 ML IV SCH ×2 (03:45→09:16)
[2017-11-22] MEDS: Pantoprazole 40 MG Tab.CR PO SCH (07:06)
[2017-11-22] MEDS: Levothyroxine 88 MCG Tab PO SCH (07:06)
[2017-11-22] MEDS: Potassium Chloride/Sodium Chloride Tab PO SCH (07:06)
[2017-11-22 07:50] VITALS: BP 141/72
[2017-11-22] MEDS: Atenolol 25 MG Tab PO SCH (09:18)
[2017-11-22] MEDS: cloZAPine 100 MG Tab PO SCH (09:20)
[2017-11-22] MEDS: Iron Polysaccharides Complex 150 MG Cap PO SCH (09:20)
[2017-11-22] MEDS: amLODIPine 2.5 MG Tab PO SCH (09:21)
[2017-11-22] MEDS: LORazepam 0.5 MG Tab PO SCH (09:22)
[2017-11-22] MEDS: LAMISIL PO SCH (09:23)
[2017-11-22] MEDS: Saccharomyces Boulardii (Probiotic) 250 MG Cap PO SCH (09:23)
[2017-11-22] MEDS: Nystatin Topical Powder 15 GM Bottle TOP SCH (09:24)
--- NOTE | 2017-11-22 10:48 | PCM.DCSUM1 ---
Discharge Summary - Hospital Course Free Text/Narrative:: 62 year female with polymicrobial skin infection, was started on IV antibiotics based on sensitivity. The current meds are covering staph, strep and pseudomonas. A PICC line was placed for mereponem which is given IV three times daily. Oral Levoquin is also being given. A total of 10 days is remaining for therapy, she has received 4 days of the current regimen. A PICC line was placed for the long annika ATBs; the [facility] program will be in place when she returns to her home. The patient has a legal guardian who gave permission for the transfer and continued treatment. Adjustment of her psych meds occurred when needed. She has been cooperative during her hospitalization. The patient had a structured schedule which included a daily shower at 1300 hour. Also was required to brush her teeth every morning and evening before bed. PT/OT also worked with her to improve functional status. her stay was uneventful, she was in contact isolation during her stay. HPI Initial Comments: HPI: This is a 62 yo female with past medical hx/o schizophrenia, bilateral partial frontal lobectomy, anxiety, depression, HTN, HLD, GERD, seizures, hypothyroid, anemia, psoriasis who comes in for extensive skin rash/impetigo. Pain is controlled. She reports no fever, chills, nausea, vomiting, diarrhea, or other dermatologic complaints. Her initial workup in the ED showed a CBC remarkable for WBC 11.49, RBC 3.43, Hgb 9, Hct 27.9, RDW 49.9, Plt 405, MPV 8, Neut 72%, Eosinophils 6%, ESR 34. Her chemistry is remarkable for Na 127, Cl 94, Glucose 126, Calcium 7.6, CRP 2.5 , BNP 425, Protein 5.6, Albumin 2.3. UA is not impressive for UTI. EKG showed NSR, LAD, prolonged QT interval, possible hypertrophy. She is subsequently admitted to the medical floor. She is a full code. Her PCP is Dr. Neetu Bryson. Diagnosis: Stroke: No - Discharge Data Discharge Date: 11/22/17 Discharge Disposition: DC/Tfer W/I Hosp To Swing [facility] Condition: Good - Patient Summary/Data Consults: Consultations 11/15/17 19:10 Consult to Case Management [CONS] Routine Consult to Record Tester [CONS] Routine OT Evaluation and Treatment [CONS] Routine PT Evaluation and Treatment [CONS] Routine - Patient Instructions Diet: Heart Healthy Diet Activity: As Tolerated Driving: Do Not Drive Showering/Bathing: May Shower Showering/Bathing, Other: Shower daily at 1300 hour; brush teeth twice daily. Notify Provider of: Fever, Increased Pain, Nausea and/or Vomiting - Discharge Plan Prescriptions/Med Rec: Bisacodyl [Dulcolax] 5 mg PO DAILY PRN #14 tablet PRN Reason: Constipation cloZAPine [Clozaril] 300 mg PO BEDTIME #30 tablet cloZAPine 50 mg PO BEDTIME #20 tablet Docusate Sodium [Colace] 100 mg PO BID PRN #20 cap PRN Reason: Constipation Levofloxacin [Levaquin] 750 mg PO Q24H #10 tablet Magnesium Hydroxide [Milk of Magnesia] 30 ml PO Q12H PRN #120 cup PRN Reason: Constipation Meropenem [Merrem] 500 mg IV Q6H #100 sdv Nystatin [Nystop] 15 cap TOP TID #400 bottle Polyethylene Glycol 3350 [MiraLAX] 17 gm PO DAILY PRN #10 packet PRN Reason: Constipation Home Medications: Home Meds Latanoprost 1 drop EYEBOTH BEDTIME 03/12/17 [History] Atenolol [Tenormin] 25 mg PO DAILY 06/04/17 [History] LORazepam [Ativan] 0.5 mg PO TID 06/04/17 [History] Levothyroxine [Synthroid] 88 mcg PO DAILY 06/04/17 [History] Pantoprazole Sodium [Protonix] 40 mg PO DAILY 06/04/17 [History] Simvastatin [Zocor] 10 mg PO BEDTIME 06/04/17 [History] amLODIPine [Norvasc] 2.5 mg PO DAILY 06/04/17 [History] cloZAPine [Clozapine] 200 mg PO 1600 06/04/17 [History] Saccharomyces Boulardii [Florastor] 250 mg PO BID #60 cap 06/13/17 [Rx] Clotrimazole [Lotrimin AF] 1 applic TOP BID 11/15/17 [History] Iron Aspgly&Ps/C/B12/Fa/Ca/Suc [Ferrex 150 Forte Plus] 150 mg PO DAILY 11/15/17 [History] cloZAPine [Clozaril] 200 mg PO DAILY 11/15/17 [History] Bisacodyl [Dulcolax] 5 mg PO DAILY PRN #14 tablet 11/22/17 [Rx] Docusate Sodium [Colace] 100 mg PO BID PRN #20 cap 11/22/17 [Rx] Levofloxacin [Levaquin] 750 mg PO Q24H #10 tablet 11/22/17 [Rx] Magnesium Hydroxide [Milk of Magnesia] 30 ml PO Q12H PRN #120 cup 11/22/17 [Rx] Meropenem [Merrem] 500 mg IV Q6H #100 sdv 11/22/17 [Rx] Nystatin [Nystop] 15 cap TOP TID #400 bottle 11/22/17 [Rx] Polyethylene Glycol 3350 [MiraLAX] 17 gm PO DAILY PRN #10 packet 11/22/17 [Rx] cloZAPine 50 mg PO BEDTIME #20 tablet 11/22/17 [Rx] cloZAPine [Clozaril] 300 mg PO BEDTIME #30 tablet 11/22/17 [Rx] Forms: ED Department Discharge Referrals: Neetu Bryson MD [Primary Care Provider] - (Follow-up as needed with .) - Discharge Summary/Plan Comment DC Time >30 min.: No Discharge Summary/Plan Comment: I/P: Acute: Extensive Rash/Impetigo--new IV site; PICC Tues, POD4 * Acute on Chronic; h/o strep infection * Risk Factors: Unable to care for self 2/2 schizophrenia, elderly mother cannot help, non compliant with medical treatment, poor hygiene * Inflammation, crusting, weeping: * Right willis-face, scalp, right ear with weeping, anterior lateral neck and shoulder with weeping, intertrigo under both breasts, 4.5cm lesion at umbilicus , severe intertrigo groin with weeping * WBC 11.49, ESR 34, CRP 2.5 * MRSA culture and PCR pending * Cultures of right ear, right shoulder and right groin pending * Rocephin 2g IV given in ED--> D/C * Doxycycline 200mg PO given in ED--> D/C * Vancomycin, pharmacy to dose * Lamisil 250 Q daily recommended x 3 weeks for possible kelvin or tinea--> do not carry this here; family will bring in * Bacitracin ointment Q daily * Daily assistance with showers and hygiene * Wound Care; change dressings daily * Recommend F/U with Dermatology * CM/SW for placement--> unable to take care of self Poor Hygiene * Most likely 2/2 Schizophrenia * Does not bathe regularly; has h/o denying showers in past hospital visits * Assist with showers and hygiene while here Medical Non-Compliance * Most likely 2/2 Schizophrenia * 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 Contact Precautions MRSA She remains stable and continues to improve clinically Other orders as indicated above Continue home medications Heart Healthy Diet PT/OT DVT Prophylaxis: SCDs GI Prophylaxis: Protonix Ambulated as tolerated CM/SW for discharge planning--> Will most likely need to be placed d/t schizophrenia and dying mother; unable to take care of self--> Looking into [facility] Code Status: Full code; PCP: Dr. Neetu Bryson LOS>96 hours for IV ATBs; placement for chronic medical needs, [facility] program. - General Info Date of Service: 12/15/17 Functional Status: Reports: Tolerating Diet, Ambulating, Urinating - Review of Systems General: Reports: No Symptoms HEENT: Reports: No Symptoms Pulmonary: Reports: No Symptoms Cardiovascular: Reports: No Symptoms Gastrointestinal: Reports: No Symptoms Genitourinary: Reports: No Symptoms Musculoskeletal: Reports: No Symptoms Skin: Reports: No Symptoms Neurological: Reports: No Symptoms Psychiatric: Reports: No Symptoms - Patient Data Vitals - Most Recent: Last Vital Signs Temp 36.6 C 11/22/17 07:33 Pulse 86 11/22/17 09:18 Resp 16 11/22/17 07:33 BP 141/72 H 11/22/17 09:21 Pulse Ox 99 11/22/17 07:33 Weight - Most Recent: 76.43 kg I&O - Last 24 hours: Intake & Output 11/21/17 11/22/17 11/22/17 22:59 06:59 14:59 Intake Total 3020 2590 600 Output Total 700 Balance 3020 1890 600 Med Orders - Current: Current Medications Acetaminophen (Tylenol) 650 mg PO Q4H PRN PRN Reason: Pain (Mild 1-3)/fever Last Admin: 11/19/17 16:08 Dose: 650 mg Amlodipine Besylate (Norvasc) 2.5 mg PO DAILY [facility] Last Admin: 11/22/17 09:21 Dose: 2.5 mg Atenolol (Tenormin) 25 mg PO DAILY [facility] Last Admin: 11/22/17 09:18 Dose: 25 mg Bisacodyl (Dulcolax) 5 mg PO DAILY PRN PRN Reason: Constipation Clozapine (Clozapine) 200 mg PO DAILY [facility] Last Admin: 11/22/17 09:20 Dose: 200 mg Clozapine (Clozapine) 200 mg PO DAILY@1600 [facility] Last Admin: 11/21/17 15:06 Dose: 200 mg Clozapine (Clozapine) 300 mg PO BEDTIME [facility] Last Admin: 11/21/17 21:30 Dose: 300 mg Clozapine (Clozapine) 50 mg PO BEDTIME [facility] Last Admin: 11/21/17 21:29 Dose: 50 mg Docusate Sodium (Colace) 100 mg PO BID PRN PRN Reason: Constipation Meropenem 500 mg/ Sodium (Chloride) 100 mls @ 200 mls/hr IV Q6H [facility] Last Admin: 11/22/17 09:16 Dose: 200 mls/hr Latanoprost (Xalatan 0.005% Ophth Soln) 0 ml EYEBOTH BEDTIME [facility] Last Admin: 11/21/17 21:33 Dose: 1 drop Levofloxacin (Levaquin) 750 mg PO Q24H [facility] Last Admin: 11/21/17 11:25 Dose: 750 mg Levothyroxine Sodium (Synthroid) 88 mcg PO ACBRK [facility] Last Admin: 11/22/17 07:06 Dose: 88 mcg Lorazepam (Ativan) 0.5 mg PO TID [facility] Last Admin: 11/22/17 09:22 Dose: 0.5 mg Magnesium Hydroxide (Milk Of Magnesia) 30 ml PO Q12H PRN PRN Reason: Constipation Nystatin (Nystop) 0 gm TOP TID [facility] Last Admin: 11/22/17 09:24 Dose: 1 applic Ondansetron HCl (Zofran Odt) 4 mg PO Q4H PRN PRN Reason: nausea, able to take PO Ondansetron HCl (Zofran) 4 mg IV Q4H PRN PRN Reason: Nausea/Vomiting Oral Electrolytes (Thermotabs) 1 each PO TID@0600,1200,2100 [facility] Last Admin: 11/22/17 07:06 Dose: 1 each Pantoprazole Sodium (Protonix) 40 mg PO DAILY@0700 [facility] Last Admin: 11/22/17 07:06 Dose: 40 mg Lamisil 250 Mg ( (Terbinafine)) 0 each PO DAILY [facility] Last Admin: 11/22/17 09:23 Dose: 1 each Polyethylene Glycol (Miralax) 17 gm PO DAILY PRN PRN Reason: Constipation Polysaccharide Iron Complex (Ferrex 150) 150 mg PO DAILY [facility] Last Admin: 11/22/17 09:20 Dose: 150 mg Saccharomyces Boulardii (Florastor) 250 mg PO BID [facility] Last Admin: 11/22/17 09:23 Dose: 250 mg Senna/Docusate Sodium (Senna Plus) 1 tab PO BID PRN PRN Reason: Constipation Simvastatin (Zocor) 10 mg PO BEDTIME [facility] Last Admin: 11/21/17 21:30 Dose: 10 mg Sodium Chloride (Saline Flush) 10 ml FLUSH ASDIRECTED PRN PRN Reason: Keep Vein Open Last Admin: 11/15/17 16:35 Dose: 10 ml Discontinued Medications Bacitracin (Bacitracin Oint 1 Gm) 1 dose TOP ONETIME [facility] Bacitracin (Bacitracin Oint 1 Gm) 1 dose TOP DAILY [facility] Last Admin: 11/15/17 21:05 Dose: Not Given Bacitracin (Bacitracin Oint) 0 gm TOP DAILY [facility] Last Admin: 11/16/17 09:40 Dose: 1 applic Clotrimazole (Lotrimin Af 1% Crm) 0 gm TOP BID [facility] Last Admin: 11/16/17 09:41 Dose: 1 applic Clozapine (Clozapine) 350 mg PO BEDTIME [facility] Last Admin: 11/15/17 20:53 Dose: 350 mg Doxycycline Hyclate (Vibramycin) 200 mg PO ONETIME ONE Stop: 11/15/17 18:47 Last Admin: 11/15/17 20:52 Dose: 200 mg Fentanyl (Sublimaze) Confirm Administered Dose 100 mcg .ROUTE .STK-MED ONE Stop: 11/19/17 07:50 Furosemide (Lasix) 20 mg IVPUSH NOW ONE Stop: 11/17/17 11:01 Last Admin: 11/17/17 11:22 Dose: 20 mg Ceftriaxone Sodium 2 gm/ (Sodium Chloride) 100 mls @ 100 mls/hr IV Q24H [facility] Last Admin: 11/15/17 16:55 Dose: 100 mls/hr Vancomycin HCl 1 gm/Vancomycin HCl 250 mg/ Sodium Chloride 250 mls @ 166.512 mls/hr IV Q12H [facility] Last Admin: 11/18/17 08:03 Dose: Not Given Sodium Chloride (Normal Saline) 1,000 mls @ 125 mls/hr IV ASDIRECTED [facility] Last Admin: 11/17/17 05:16 Dose: 125 mls/hr Ceftriaxone Sodium 2 gm/ (Sodium Chloride) 100 mls @ 200 mls/hr IV Q24H [facility] Last Admin: 11/17/17 16:52 Dose: 200 mls/hr Cefepime HCl 2 gm/ Premix 50 mls @ 100 mls/hr IV Q12H [facility] Last Admin: 11/19/17 01:32 Dose: 100 mls/hr Clindamycin Phosphate 900 mg/ (Sodium Chloride) 106 mls @ 212 mls/hr IV Q6H [facility] Last Admin: 11/19/17 06:53 Dose: 212 mls/hr Lidocaine HCl (Xylocaine-Mpf 1%) Confirm Administered Dose 4 mls @ as directed .ROUTE .STK-MED ONE Stop: 11/19/17 07:41 Cefepime HCl 2 gm/ Premix 50 mls @ 100 mls/hr IV Q12H [facility] Levofloxacin/Dextrose 750 mg/ (Premix) 150 mls @ 100 mls/hr IV Q24H [facility] Stop: 11/20/17 13:29 Last Admin: 11/20/17 13:33 Dose: 100 mls/hr Midazolam HCl (Versed 1 Mg/Ml) Confirm Administered Dose 2 mg .ROUTE .STK-MED ONE Stop: 11/19/17 07:40 Morphine Sulfate (Morphine) 2 mg IVPUSH Q2H PRN PRN Reason: Pain (severe 7-10) Stop: 11/16/17 19:13 Non-Formulary Medication (Nf Drug) 250 each PO DAILY [facility] Nystatin (Nystop) 15 gm TOP TID PRN PRN Reason: Anti-fungal Last Admin: 11/17/17 08:43 Dose: 1 applic Oxycodone/Acetaminophen (Percocet 325-5 Mg) 1 tab PO Q4H PRN PRN Reason: Pain (moderate 4-6) Pantoprazole Sodium (Protonix Iv) 40 mg IVPUSH DAILY@0700 [facility] Last Admin: 11/18/17 06:28 Dose: Not Given Propofol (Diprivan 20 Ml) Confirm Administered Dose 200 mg .ROUTE .STK-MED ONE Stop: 11/19/17 07:39 Triamcinolone Acetonide (Triamcinolone Acetonide 0.1% Crm) gm TOP TID [facility] Vancomycin HCl (Pharmacy To Dose - Vancomycin) 0 dose .XX ASDIRECTED PRN PRN Reason: RX TO DOSE VANCOMYCIN - Exam Quality Assessment: Reports: DVT Prophylaxis General: Reports: Alert, Oriented, Cooperative, No Acute Distress HEENT: Reports: Pupils Equal, Pupils Reactive, EOMI Neck: Reports: Trachea Midline, No JVD Lungs: Reports: Normal Respiratory Effort Cardiovascular: Reports: Regular Rate, Regular Rhythm GI/Abdominal Exam: Normal Bowel Sounds, Soft, Non-Tender, No Organomegaly, No Distention (Female) Exam: Deferred Rectal (Female) Exam: Deferred Back Exam: Reports: Normal Inspection Extremities: Normal Inspection, No Pedal Edema, Normal Capillary Refill Skin: Reports: Warm, Dry Wound/Incisions: Reports: Erythema Improving Neurological: Reports: No New Focal Deficit, Normal Gait, Normal Speech Psy/Mental Status: Reports: Alert, Normal Affect, Normal Mood
== END 2017-11-22 11:40 | disposition swing bed (61) | DRG 603 ==
LOC: JD.ED 15:13 → SUPCPDRO 15:13 → JD.MS 18:49
PROVIDERS: ADMIT Internal Medicine; ATTEND Internal Medicine
PROC: 02HV33Z Insertion of Infusion Device into Superior Vena Cava, Percutaneous Approach (ICD-10-PCS; principal; 2017-11-19)
PROC: B548ZZA Ultrasonography of Superior Vena Cava, Guidance (ICD-10-PCS; 2017-11-19)
DX: L01.00 Impetigo, unspecified (principal); E87.1 Hypo-osmolality and hyponatremia; L30.8 Other specified dermatitis; B37.2 Candidiasis of skin and nail; B95.61 Methicillin susceptible Staphylococcus aureus infection as the cause of diseases classified elsewhere; E78.5 Hyperlipidemia, unspecified; L40.9 Psoriasis, unspecified; D63.8 Anemia in other chronic diseases classified elsewhere; B95.5 Unspecified streptococcus as the cause of diseases classified elsewhere; F20.9 Schizophrenia, unspecified; L30.4 Erythema intertrigo; B35.6 Tinea cruris; H40.9 Unspecified glaucoma; E78.00 Pure hypercholesterolemia, unspecified; I10 Essential (primary) hypertension; K21.9 Gastro-esophageal reflux disease without esophagitis; R56.9 Unspecified convulsions; F41.9 Anxiety disorder, unspecified; F32.9 Major depressive disorder, single episode, unspecified; E03.9 Hypothyroidism, unspecified; K59.09 Other constipation; K52.9 Noninfective gastroenteritis and colitis, unspecified; Z88.8 Allergy status to other drugs, medicaments and biological substances; H92.01 Otalgia, right ear; R63.5 Abnormal weight gain; Z68.28 Body mass index [BMI] 28.0-28.9, adult; R06.00 Dyspnea, unspecified; R60.9 Edema, unspecified; R00.2 Palpitations; R53.83 Other fatigue; R14.0 Abdominal distension (gaseous); L53.9 Erythematous condition, unspecified; B36.9 Superficial mycosis, unspecified; A49.9 Bacterial infection, unspecified; R59.1 Generalized enlarged lymph nodes; R21 Rash and other nonspecific skin eruption; Z87.440 Personal history of urinary (tract) infections; Z91.19 Patient's noncompliance with other medical treatment and regimen; Z79.899 Other long term (current) drug therapy; Z87.891 Personal history of nicotine dependence
CPT/HCPCS: 36415; 80053; 81001; 83735; 83880; 83930; 84443; 85007; 85027; 85652; 86140; 87070 ×4; 87077 ×5; 87088; 87181; 87184; 87186 ×5; 93005; 96365; 99285; J0696; J7030; J7050; 00532; 36569; 80048; 80202; 85025; 87641; 93010; 96523; 97161-GP; 97165-GO; A9270; A9270-GY; C1751; C9113; J0692; J1956; J2001; J2185; J2250; J2704; J3010; J3370; J7040

== ENCOUNTER 2018-02-07 00:40 | Inpatient (IN) | payer MEDICARE, MEDICAID ==
--- NOTE | 2018-02-07 01:08 | EDM.PDOC ---
ED HPI GENERAL MEDICAL PROBLEM - General Chief Complaint: General Stated Complaint: [facility] Time Seen by Provider: 02/07/18 00:50 Source of Information: Reports: Patient, RN Notes Reviewed History Limitations: Reports: Altered Mental Status - History of Present Illness INITIAL COMMENTS - FREE TEXT/NARRATIVE: The patient has a history of schizophrenia, status post bilateral partial frontal lobotomy, and is not able to provide much meaningful history. According to the triage nurse notes, EMS found the patient on her bedroom floor, not making much sense. A cervical collar was placed, and the patient was brought to the ED on a backboard. The patient tells me that she fell at home, but is not able to tell me why. No obvious injury, and at present, the patient is only complaining of discomfort from the cervical collar. She speaks of herself in the third person. - Related Data Allergies Allergy/AdvReac Type Severity Reaction Status Date / Time carbamazepine [From Tegretol] Allergy Cannot Verified 02/07/18 00:45 Remember ezetimibe [From Zetia] Allergy Cannot Verified 02/07/18 00:45 Remember haloperidol AdvReac Seizures Verified 02/07/18 00:45 trifluoperazine HCl AdvReac Seizures Verified 02/07/18 00:45 [From Stelazine] asorbic acid Allergy Cannot Uncoded 02/07/18 01:38 Remember Home Meds: Home Meds Atenolol [Tenormin] 50 mg PO DAILY 02/07/18 [History] Donepezil HCl 10 mg PO BEDTIME 02/07/18 [History] Ibuprofen 200 mg PO Q6HR PRN 02/07/18 [History] Iron Polysaccharides Complex [Ferrex 150] 150 mg PO WITHLUNCH 02/07/18 [History] LORazepam [Ativan] 0.5 mg PO TID PRN 02/07/18 [History] Lactobacillus Acidophilus [Acidophilus] 1 tab PO DAILY 02/07/18 [History] Levothyroxine [Synthroid] 88 mcg PO DAILY 02/07/18 [History] Memantine HCl [Namenda] 5 mg PO BID 02/07/18 [History] Pantoprazole [ProTONIX] 40 mg PO DAILY 02/07/18 [History] cloZAPine 350 mg PO BEDTIME 02/07/18 [History] cloZAPine [Clozapine Odt] 200 mg PO BID 02/07/18 [History] Past Medical History HEENT History: Reports: Glaucoma (Apparently has been on Latanoprost eyedrops.- 1 drop to each eye in the evening daily. She states she's not been able to put them in her eyes as of late.), Impaired Vision Cardiovascular History: Reports: High Cholesterol, Hypertension Gastrointestinal History: Reports: GERD, GI Bleed Neurological History: Reports: Seizure Psychiatric History: Reports: Anxiety, Depression, Schizophrenia Endocrine/Metabolic History: Reports: Hypothyroidism Hematologic History: Reports: Anemia Dermatologic History: Reports: Psoriasis - Past Surgical History Head Surgeries/Procedures: Reports: Other (See Below) (Bilateral partial frontal lobotomy) GI Surgical History: Reports: Appendectomy Musculoskeletal Surgical History: Reports: None Oncologic Surgical History: Reports: None Social & Family History - Family History Family Medical History: Noncontributory Cardiac: Reports: Pacemaker - Caffeine Use Caffeine Use: Reports: Coffee Other Caffeine Use: reports to drink 2 cups of coffee a week, 2 cups of tea a week and a can of diet coke daily. - Living Situation & Occupation Living situation: Reports: Single, with Family (Mother) Occupation: Unemployed ED ROS GENERAL - Review of Systems Review Of Systems: Unable To Obtain ED EXAM, GENERAL - Physical Exam Exam: See Below Exam Limited By: No Limitations General Appearance: Alert, WD/WN, No Apparent Distress Eye Exam: Bilateral Eye: EOMI, Normal Inspection Ears: Normal External Exam, Hearing Grossly Normal Nose: Normal Inspection, No Blood Throat/Mouth: Normal Inspection, Normal Lips, Normal Voice, No Airway Compromise Head: Atraumatic, Normocephalic Neck: Other (Cervical collar kept in place) Respiratory/Chest: No Respiratory Distress, Lungs Clear, Normal Breath Sounds, No Accessory Muscle Use, Chest Non-Tender Cardiovascular: Normal Peripheral Pulses, Regular Rate, Rhythm, No Gallop, No JVD, No Murmur, No Rub Peripheral Pulses: 4+: Radial (L), Radial (R) GI/Abdominal: Normal Bowel Sounds, Soft, Non-Tender, No Organomegaly, No Distention, No Abnormal Bruit, No Mass (Female) Exam: Deferred Rectal (Female) Exam: Normal Rectal Tone, Deferred Back Exam: Normal Inspection, Full Range of Motion, NT Extremities: Normal Inspection, Normal Range of Motion, No Pedal Edema, Normal Capillary Refill Neurological: Alert, No Motor/Sensory Deficits Psychiatric: Other (unable to assess) Skin Exam: Warm, Dry, Intact, Normal Color, No Rash EKG INTERPRETATION EKG Date: 02/07/18 Time: 01:09 Rhythm: NSR Rate (Beats/Min): 87 [place]: Normal P-Wave: Present (1 AVB) QRS: RBBB (Incomplete. Early R-wave progression.) ST-T: Normal QT: Prolonged (486 ms) Comparison: No Change (11/15/2017) Course - Vital Signs Last Recorded V/S: Last Vital Signs Temp 36.9 C 02/07/18 00:46 Pulse 92 02/07/18 00:46 Resp 18 02/07/18 00:46 BP 147/78 H 02/07/18 00:46 Pulse Ox 100 02/07/18 00:46 - Orders/Labs/Meds Orders: Active Orders 24 hr Category Date Time Status EKG Documentation Completion [RC] STAT Care 02/07/18 01:02 Active Insert Urinary Catheter [OM.PC] Q24H Care 02/07/18 02:45 Ordered Urinary Catheter Assessment [RC] ASDIRECTED Care 02/07/18 02:36 Active Cervical Spine wo Cont [CT] Stat Exams 02/07/18 01:01 Taken Head wo Cont [CT] Stat Exams 02/07/18 01:01 Taken Sodium Chloride 0.9% [Normal Saline] 1,000 ml Med 02/07/18 02:15 Active IV ASDIRECTED Medication Orders Sodium Chloride (Normal Saline) 1,000 mls @ 150 mls/hr IV ASDIRECTED NAEL Last Admin: 02/07/18 02:34 Dose: 150 mls/hr Labs: Laboratory Tests 02/07/18 02/07/18 02/07/18 Range/Units 01:25 01:25 02:19 WBC 10.94 H (3.98-10.04) K/mm3 RBC 3.79 L (3.98-5.22) M/mm3 Hgb 10.3 L (11.2-15.7) gm/L Hct 30.8 L (34.1-44.9) % MCV 81.3 (79.4-94.8) fl MCH 27.2 (25.6-32.2) pg MCHC 33.4 (32.2-35.5) g/dl RDW Std Deviation 47.6 H (36.4-46.3) fL Plt Count 378 H (182-369) K/mm3 MPV 8.1 L (9.4-12.3) fl Neutrophils % (Manual) 78 H (40-60) % Band Neutrophils % 0 (0-10) % Lymphocytes % (Manual) 7 L (20-40) % Atypical Lymphs % 0 % Monocytes % (Manual) 11 H (2-10) % Eosinophils % (Manual) 4 (0.7-5.8) % Basophils % (Manual) 0 L (0.1-1.2) Platelet Estimate Adequate Plt Morphology Comment Normal Anisocytosis 1+ slight Microcytosis 1+ slight Macrocytosis 1+ slight RBC Morph Comment Abnormal Sodium 128 L (136-145) mEq/L Potassium 4.0 (3.5-5.1) mEq/L Chloride 93 L (98-107) mEq/L Carbon Dioxide 28 (21-32) mEq/L Anion Gap 11.0 (5-15) BUN 12 (7-18) mg/dL Creatinine 1.1 H (0.55-1.02) mg/dL Est Cr Clr Drug Dosing 47.72 mL/min Estimated GFR (MDRD) 50 (>60) mL/min BUN/Creatinine Ratio 10.9 L (14-18) Glucose 101 (80-115) mg/dL Calcium 8.7 (8.5-10.1) mg/dL Magnesium 2.2 (1.8-2.4) mg/dl Total Bilirubin 0.2 (0.2-1.0) mg/dL AST 12 L (15-37) U/L ALT 17 (14-59) U/L Alkaline Phosphatase 105 (46-116) U/L Troponin I < 0.017 (0.00-0.056) ng/mL Total Protein 6.8 (6.4-8.2) g/dl Albumin 3.0 L (3.4-5.0) g/dl Globulin 3.8 gm/dL Albumin/Globulin Ratio 0.8 L (1-2) Urine Color Yellow (Yellow) Urine Appearance Clear (Clear) Urine pH 6.5 (5.0-8.0) Ur Specific [place] 1.015 (1.005-1.030) Urine Protein Negative (Negative) Urine Glucose (UA) Negative (Negative) Urine Ketones Negative (Negative) Urine Occult Blood Negative (Negative) Urine Nitrite Negative (Negative) Urine Bilirubin Negative (Negative) Urine Urobilinogen 0.2 (0.2-1.0) Ur Leukocyte Esterase Negative (Negative) Urine RBC Not seen (0-5) /hpf Urine WBC 0-5 (0-5) /hpf Ur Epithelial Cells Not seen (0-5) /hpf Urine Bacteria Not seen (FEW) /hpf Hyaline Casts 0-5 (0-5) /lpf Waxy Casts 0-5 (0-5) /lpf Urine Mucus Few (FEW) /hpf Meds: Medications Generic Name Dose Route Start Last Admin Trade Name Freq PRN Reason Stop Dose Admin Sodium Chloride 1,000 mls @ 150 mls/hr 02/07/18 02:15 02/07/18 02:34 Normal Saline IV 150 mls/hr ASDIRECTED NAEL Administration - Re-Assessments/Exams Free Text/Narrative Re-Assessment/Exam: 02/07/18 02:05 CT of the head without contrast is read by [facility] as: Normal head/brain CT. CT of the cervical spine without contrast is read by [facility] as: No acute findings. Degenerative changes. 02/07/18 02:07 The patient's sodium has returned depressed at 128. I have ordered normal saline at 150 mL per hour. 02/07/18 02:11 I removed the cervical collar. On palpation of the cervical spine, the patient did not appear to have any tenderness. When asked if she had any tenderness to my palpation, she continued to refer to herself the third person, and stated that she hurt all over, but did not specifically indicate that she had cervical tenderness. 02/07/18 03:01 With the exception of the patient's sodium being depressed at 128, the remainder of her workup is negative. As above, the patient has been receiving NS at 150 ml/hr. It will take some time to normalize her sodium, therefore I am recommending placement into observation. Case discussed with Dr. Mauro at 03:00. He agrees to place the patient into observation. I will write bridge orders. Departure - Departure Time of Disposition: 03:02 Disposition: Refer to Observation Condition: Fair Clinical Impression: Hyponatremia, Fall at home - Discharge Information *PRESCRIPTION DRUG MONITORING PROGRAM REVIEWED*: Not Applicable *COPY OF PRESCRIPTION DRUG MONITORING REPORT IN PATIENT CHALO: Not Applicable Referrals: PCP,None [Primary Care Provider] - Forms: ED Department Discharge - My Orders Last 24 Hours: My Active Orders 02/07/18 01:01 Cervical Spine wo Cont [CT] Stat Head wo Cont [CT] Stat 02/07/18 01:02 EKG Documentation Completion [RC] STAT 02/07/18 02:15 Sodium Chloride 0.9% [Normal Saline] 1,000 ml IV ASDIRECTED 02/07/18 02:36 Urinary Catheter Assessment [RC] ASDIRECTED 02/07/18 02:45 Insert Urinary Catheter [OM.PC] Q24H - Assessment/Plan Last 24 Hours: My Active Orders 02/07/18 01:01 Cervical Spine wo Cont [CT] Stat Head wo Cont [CT] Stat 02/07/18 01:02 EKG Documentation Completion [RC] STAT 02/07/18 02:15 Sodium Chloride 0.9% [Normal Saline] 1,000 ml IV ASDIRECTED 02/07/18 02:36 Urinary Catheter Assessment [RC] ASDIRECTED 02/07/18 02:45 Insert Urinary Catheter [OM.PC] Q24H
[2018-02-07] MEDS: Sodium Chloride 0.9% 1,000 ML IV SCH ×3 (02:34→19:29)
--- NOTE | 2018-02-07 08:44 | CT ---
CT cervical spine Technique: Multiple axial sections were obtained from above C1 inferiorly to the top of T3. Reconstructed sagittal and coronal images were reviewed. Comparison: No prior cervical spine imaging. Findings: Mild disc space narrowing at C2-C3 and C6-C7. Minimal spondylolisthesis at C6-C7 due to degenerative apophyseal change. Other degenerative apophyseal change is seen throughout the cervical spine which is worse on the right side. Scattered endplate osteophytes are seen anteriorly throughout cervical spine. Degenerative change is noted between the dens and anterior arch of C1. No fracture or other bony abnormality is appreciated. Impression: 1. Diffuse degenerative change. 2. No acute abnormality is seen on CT study of the cervical spine. Diagnostic code #2 I agree with preliminary report from [facility], finalized on 02/07/18, 2:59 AM Central Time
--- NOTE | 2018-02-07 08:44 | CT ---
Head CT Technique: Multiple axial sections through the brain were obtained. Intravenous contrast was not utilized. Comparison: Prior head CT study of 06/05/17. Findings: Ventricles along with basal cisterns and sulci over the convexities are mildly prominent. No abnormal parenchymal densities are seen. No evidence of intracranial hemorrhage. No midline shift or mass effect is seen. Bone window settings were reviewed which show minimal fluid within the left frontal sinus most likely due to retained secretions. No acute calvarial abnormality is appreciated. Impression: 1. Incidental findings. Nothing acute is appreciated on noncontrast head CT exam. Diagnostic code #2 I agree with preliminary report from [facility], finalized on 02/07/18, 2:58 AM Central Time
[2018-02-07] MEDS ORDERED: Sodium Chloride/Potassium Chloride Tab PO SCH ×2 (09:00)
[2018-02-07] MEDS ORDERED: Ibuprofen 200 MG Tab PO PRN (09:01)
[2018-02-07] MEDS ORDERED: LORazepam 0.5 MG Tab PO PRN (10:03)
--- NOTE | 2018-02-07 10:07 | PCM.HP ---
H&P History of Present Illness - General Date of Service: 02/07/18 Admit Problem/Dx: Admission Diagnosis/Problem Admission Diagnosis/Problem Hyponatremia Source of Information: Old Records, Provider History Limitations: Reports: Altered Mental Status (h/o schizophrenia) - History of Present Illness Initial Comments - Free Text/Narative: HPI: This is a 62 yo female with past medical hx/o schizophrenia, bilateral partial frontal lobectomy, anxiety, depression, HTN, HLD, GERD, seizures, hypothyroid, anemia, psoriasis who comes in for fall, manic episode and hyponatremia. Pain is controlled. Difficult to obtain ROS d/t AMS 2/2 manic episode. Most history obtained from old records and [facility] nurseJuanito. She reports no fever, chills, nausea, vomiting, diarrhea. Her initial workup in the ED showed a CBC remarkable for WBC 10.94, RBC 3.79, Hgb 10.3, Hct 30.8, RDW 47.6, Plt 378, MPV 8.1, Neut 78%, [place] 11%. Her chemistry is remarkable for Na 128, Cl 93, Cr 1.1, GFR 50, AST 12, Albumin 3. U/ A unimpressive for UTI. She is subsequently admitted to the medical floor for observation. She is a full code. Her PCP is Dr. Neetu Bryson. - Related Data Allergies/Adverse Reactions: Allergies Allergy/AdvReac Type Severity Reaction Status Date / Time carbamazepine [From Tegretol] Allergy Cannot Verified 02/07/18 00:45 Remember ezetimibe [From Zetia] Allergy Cannot Verified 02/07/18 00:45 Remember haloperidol AdvReac Seizures Verified 02/07/18 00:45 trifluoperazine HCl AdvReac Seizures Verified 02/07/18 00:45 [From Stelazine] asorbic acid Allergy Cannot Uncoded 02/07/18 01:38 Remember Home Medications: Home Meds Atenolol [Tenormin] 50 mg PO DAILY 02/07/18 [History] Donepezil HCl 10 mg PO BEDTIME 02/07/18 [History] Ibuprofen 200 mg PO Q6HR PRN 02/07/18 [History] Iron Polysaccharides Complex [Ferrex 150] 150 mg PO WITHLUNCH 02/07/18 [History] LORazepam [Ativan] 0.5 mg PO TID PRN 02/07/18 [History] Lactobacillus Acidophilus [Acidophilus] 1 tab PO DAILY 02/07/18 [History] Levothyroxine [Synthroid] 88 mcg PO DAILY 02/07/18 [History] Memantine HCl [Namenda] 5 mg PO BID 02/07/18 [History] Pantoprazole [ProTONIX] 40 mg PO DAILY 02/07/18 [History] cloZAPine 350 mg PO BEDTIME 02/07/18 [History] cloZAPine [Clozapine Odt] 200 mg PO BID 02/07/18 [History] Past Medical History HEENT History: Reports: Glaucoma, Impaired Vision Other HEENT History: wears glasses Cardiovascular History: Reports: High Cholesterol, Hypertension Gastrointestinal History: Reports: GERD, GI Bleed Neurological History: Reports: Seizure Other Neuro History: dementia Psychiatric History: Reports: Anxiety, Depression, Schizophrenia Endocrine/Metabolic History: Reports: Hypothyroidism Hematologic History: Reports: Anemia Dermatologic History: Reports: Psoriasis, Other (See Below) Other Dermatologic History: skin infections to groin, under breasts and right ear. - Past Surgical History Respiratory Surgical History: Reports: None GI Surgical History: Reports: Appendectomy Musculoskeletal Surgical History: Reports: None Oncologic Surgical History: Reports: None Social & Family History - Family History Family Medical History: Noncontributory Cardiac: Reports: Pacemaker - Tobacco Use Smoking Status *Q: Never Smoker Second Hand Smoke Exposure: No - Caffeine Use Caffeine Use: Reports: Coffee Other Caffeine Use: reports to drink 2 cups of coffee a week, 2 cups of tea a week and a can of diet coke daily. - Recreational Drug Use Recreational Drug Use: No - Living Situation & Occupation Living situation: Reports: Single, with Family (Mother) Occupation: Unemployed H&P Review of Systems - Review of Systems: Review Of Systems: ROS reveals no pertinent complaints other than HPI. Exam - Exam Exam: See Below - Vital Signs Vital Signs: Last Vital Signs Temp 97.7 F 02/07/18 09:48 Pulse 93 02/07/18 09:48 Resp 18 02/07/18 09:48 BP 118/81 02/07/18 09:48 Pulse Ox 100 02/07/18 09:48 Weight: 167 lb 12.348 oz - Exam Quality Assessment: DVT Prophylaxis. No: Supplemental Oxygen General: Alert. No: Oriented (currently in manic episode, talking to self and not able to engage in meaningful conversation) HEENT: PERRLA, Hearing Intact, Mucosa Moist & [place], Nares Patent, Normal Nasal Septum, Posterior Pharynx Clear, Conjunctiva Clear, EOMI, EACs Clear, TMs Clear Neck: Supple, Trachea Midline, 2 Lungs: Clear to Auscultation, Normal Respiratory Effort Cardiovascular: Regular Rate, Regular Rhythm GI/Abdominal Exam: Normal Bowel Sounds, Soft, Non-Tender, No Organomegaly, No Distention, No Abnormal Bruit, No Mass, Pelvis Stable (Female) Exam: Deferred Rectal (Female) Exam: Other (skin lesion to buttocks, no active drainage at this time just erythema) Back Exam: Normal Inspection, Full Range of Motion, NT Extremities: Normal Inspection, Normal Range of Motion, Non-Tender, No Pedal Edema, Normal Capillary Refill, Other Peripheral Pulses: 2+: Posterior Tibial (L), Posterior Tibial (R), Dorsalis Pedis (L), Dorsalis Pedis (R) Skin: Warm, Dry, Intact, Wound (multiple skin lesions Located on right upper face (size of quarter), right lower ear (size of dime), under breasts and in groin region) Neurological: Cranial Nerves Intact (grossly) Neuro Extensive - Mental Status: Alert, Other (she seems oriented to who she is (talks about self in third person), where she is (remembers the hospital and Dr. Cummins) but is unable to engage in meaningful conversation in order to assess further) Psychiatric: Alert, Hallucinations (seems to be talking to hallucinations; h/o schizophrenia), Other (she seems oriented to who she is (talks about self in third person), where she is (remembers the hospital and Dr. Cummins) but is unable to engage in meaningful conversation in order to assess further) - Patient Data Lab Results Last 24 hrs: Laboratory Results - last 24 hr 02/07/18 02/07/18 02/07/18 Range/Units 01:25 01:25 02:19 WBC 10.94 H (3.98-10.04) K/mm3 RBC 3.79 L (3.98-5.22) M/mm3 Hgb 10.3 L (11.2-15.7) gm/L Hct 30.8 L (34.1-44.9) % MCV 81.3 (79.4-94.8) fl MCH 27.2 (25.6-32.2) pg MCHC 33.4 (32.2-35.5) g/dl RDW Std Deviation 47.6 H (36.4-46.3) fL Plt Count 378 H (182-369) K/mm3 MPV 8.1 L (9.4-12.3) fl Neutrophils % (Manual) 78 H (40-60) % Band Neutrophils % 0 (0-10) % Lymphocytes % (Manual) 7 L (20-40) % Atypical Lymphs % 0 % Monocytes % (Manual) 11 H (2-10) % Eosinophils % (Manual) 4 (0.7-5.8) % Basophils % (Manual) 0 L (0.1-1.2) Platelet Estimate Adequate Plt Morphology Comment Normal Anisocytosis 1+ slight Microcytosis 1+ slight Macrocytosis 1+ slight RBC Morph Comment Abnormal Sodium 128 L (136-145) mEq/L Potassium 4.0 (3.5-5.1) mEq/L Chloride 93 L (98-107) mEq/L Carbon Dioxide 28 (21-32) mEq/L Anion Gap 11.0 (5-15) BUN 12 (7-18) mg/dL Creatinine 1.1 H (0.55-1.02) mg/dL Est Cr Clr Drug Dosing 47.72 mL/min Estimated GFR (MDRD) 50 (>60) mL/min BUN/Creatinine Ratio 10.9 L (14-18) Glucose 101 (80-115) mg/dL Calcium 8.7 (8.5-10.1) mg/dL Magnesium 2.2 (1.8-2.4) mg/dl Total Bilirubin 0.2 (0.2-1.0) mg/dL AST 12 L (15-37) U/L ALT 17 (14-59) U/L Alkaline Phosphatase 105 (46-116) U/L Troponin I < 0.017 (0.00-0.056) ng/mL Total Protein 6.8 (6.4-8.2) g/dl Albumin 3.0 L (3.4-5.0) g/dl Globulin 3.8 gm/dL Albumin/Globulin Ratio 0.8 L (1-2) Urine Color Yellow (Yellow) Urine Appearance Clear (Clear) Urine pH 6.5 (5.0-8.0) Ur Specific [place] 1.015 (1.005-1.030) Urine Protein Negative (Negative) Urine Glucose (UA) Negative (Negative) Urine Ketones Negative (Negative) Urine Occult Blood Negative (Negative) Urine Nitrite Negative (Negative) Urine Bilirubin Negative (Negative) Urine Urobilinogen 0.2 (0.2-1.0) Ur Leukocyte Esterase Negative (Negative) Urine RBC Not seen (0-5) /hpf Urine WBC 0-5 (0-5) /hpf Ur Epithelial Cells Not seen (0-5) /hpf Urine Bacteria Not seen (FEW) /hpf Hyaline Casts 0-5 (0-5) /lpf Waxy Casts 0-5 (0-5) /lpf Urine Mucus Few (FEW) /hpf 02/07/18 Range/Units 07:10 WBC (3.98-10.04) K/mm3 RBC (3.98-5.22) M/mm3 Hgb (11.2-15.7) gm/L Hct (34.1-44.9) % MCV (79.4-94.8) fl MCH (25.6-32.2) pg MCHC (32.2-35.5) g/dl RDW Std Deviation (36.4-46.3) fL Plt Count (182-369) K/mm3 MPV (9.4-12.3) fl Neutrophils % (Manual) (40-60) % Band Neutrophils % (0-10) % Lymphocytes % (Manual) (20-40) % Atypical Lymphs % % Monocytes % (Manual) (2-10) % Eosinophils % (Manual) (0.7-5.8) % Basophils % (Manual) (0.1-1.2) Platelet Estimate Plt Morphology Comment Anisocytosis Microcytosis Macrocytosis RBC Morph Comment Sodium 128 L (136-145) mEq/L Potassium 4.0 (3.5-5.1) mEq/L Chloride 95 L (98-107) mEq/L Carbon Dioxide 27 (21-32) mEq/L Anion Gap 10.0 (5-15) BUN 10 (7-18) mg/dL Creatinine 1.0 (0.55-1.02) mg/dL Est Cr Clr Drug Dosing 52.49 mL/min Estimated GFR (MDRD) 56 (>60) mL/min BUN/Creatinine Ratio 10.0 L (14-18) Glucose 111 (80-115) mg/dL Calcium 9.2 (8.5-10.1) mg/dL Magnesium (1.8-2.4) mg/dl Total Bilirubin (0.2-1.0) mg/dL AST (15-37) U/L ALT (14-59) U/L Alkaline Phosphatase (46-116) U/L Troponin I (0.00-0.056) ng/mL Total Protein (6.4-8.2) g/dl Albumin (3.4-5.0) g/dl Globulin gm/dL Albumin/Globulin Ratio (1-2) Urine Color (Yellow) Urine Appearance (Clear) Urine pH (5.0-8.0) Ur Specific [place] (1.005-1.030) Urine Protein (Negative) Urine Glucose (UA) (Negative) Urine Ketones (Negative) Urine Occult Blood (Negative) Urine Nitrite (Negative) Urine Bilirubin (Negative) Urine Urobilinogen (0.2-1.0) Ur Leukocyte Esterase (Negative) Urine RBC (0-5) /hpf Urine WBC (0-5) /hpf Ur Epithelial Cells (0-5) /hpf Urine Bacteria (FEW) /hpf Hyaline Casts (0-5) /lpf Waxy Casts (0-5) /lpf Urine Mucus (FEW) /hpf Result Diagrams: 02/07/18 01:25 02/07/18 13:10 - Problem List (1) Inverse psoriasis SNOMED Code(s): 20153157 ICD Code: L40.8 - OTHER PSORIASIS Status: Acute Priority: High Current Visit: Yes (2) Fall at home SNOMED Code(s): 48350556 ICD Code: W19.XXXA - UNSPECIFIED FALL, INITIAL ENCOUNTER; Y92.009 - UNSP PLACE IN UNSP NON-INSTITUT (PRIVATE) RESIDENCE PLACE Status: Acute Priority: High Current Visit: Yes (3) Hyponatremia SNOMED Code(s): 07188780 ICD Code: E87.1 - HYPO-OSMOLALITY AND HYPONATREMIA Status: Acute Priority : High Current Visit: Yes (4) Altered mental status SNOMED Code(s): 421017814 ICD Code: R41.82 - ALTERED MENTAL STATUS, UNSPECIFIED Status: Acute Priority: High Current Visit: Yes Qualifiers: Altered mental status type: unspecified Qualified Code(s): R41.82 - Altered mental status, unspecified Problem List Initiated/Reviewed/Updated: Yes Orders Last 24hrs: Active Orders 24 hr Category Date Time Status Admission Status [Patient Status] [ADT] Routine ADT 02/07/18 03:33 Active Insert Urinary Catheter [OM.PC] Q24H Care 02/07/18 02:45 Ordered Up With Assistance [RC] ASDIRECTED Care 02/07/18 05:05 Active Up ad Teresa [RC] ASDIRECTED Care 02/07/18 04:54 Active Regular Diet [DIET] Diet 02/07/18 Breakfast Active MAGNESIUM [CHEM] Routine Lab 02/07/18 07:10 Received Atenolol [Tenormin] Med 02/07/18 09:15 Ordered 50 mg PO DAILY Donepezil [Aricept] Med 02/07/18 21:00 Ordered 10 mg PO BEDTIME Ibuprofen [Ibuprofen] Med 02/07/18 09:01 Ordered 200 mg PO Q6HR PRN Iron Polysaccharides Complex [Ferrex 150] Med 02/07/18 11:00 Ordered 150 mg PO WITHLUNCH LORazepam [Ativan] Med 02/07/18 10:03 Ordered 0.5 mg PO TID PRN Lactobacillus Acidophilus [Acidophilus] Med 02/07/18 09:15 Ordered 1 tab PO DAILY Levothyroxine [Synthroid] Med 02/08/18 09:00 Ordered 88 mcg PO DAILY Memantine HCl [Namenda] Med 02/07/18 21:00 Ordered 5 mg PO BID Pantoprazole [ProTONIX] Med 02/07/18 10:15 Ordered 40 mg PO DAILY Sodium Chloride 0.9% [Normal Saline] 1,000 ml Med 02/07/18 02:15 Active IV ASDIRECTED Sodium Chloride/KCl [Thermotabs] Med 02/07/18 09:00 Ordered 1 each PO BID cloZAPine Med 02/07/18 21:00 Ordered 350 mg PO BEDTIME cloZAPine [Clozapine Odt] Med 02/07/18 21:00 Ordered 200 mg PO BID Resuscitation Status Routine Resus Stat 02/07/18 04:54 Ordered Medication Orders Atenolol (Tenormin) 50 mg PO DAILY NAEL Clozapine (Clozapine) 350 mg PO BEDTIME NAEL Donepezil HCl (Aricept) 10 mg PO BEDTIME NAEL Sodium Chloride (Normal Saline) 1,000 mls @ 150 mls/hr IV ASDIRECTED NAEL Last Admin: 02/07/18 02:34 Dose: 150 mls/hr Levothyroxine Sodium (Synthroid) 88 mcg PO DAILY NAEL Lorazepam (Ativan) 0.5 mg PO TID PRN PRN Reason: Pain Non-Formulary Medication (Clozapine [Clozapine Odt]) 200 mg PO BID NAEL Non-Formulary Medication (Ibuprofen [Ibuprofen]) 200 mg PO Q6HR PRN PRN Reason: Pain Non-Formulary Medication (Lactobacillus Acidophilus [Acidophilus]) 1 tab PO DAILY NAEL Non-Formulary Medication (Memantine Hcl [Namenda]) 5 mg PO BID NAEL Oral Electrolytes (Thermotabs) 1 each PO BID NAEL Last Admin: 02/07/18 09:44 Dose: 1 each Pantoprazole Sodium (Protonix) 40 mg PO DAILY NAEL Polysaccharide Iron Complex (Ferrex 150) 150 mg PO WITHLUNCH NAEL Assessment/Plan Comment:: I/P: Acute: AMS 2/2 Manic Episode * Risk Factor: Pt has h/o Schizophrenia w/ Bipolar, has h/o manic episodes that "cycle" * Manic episode started yesterday per PACE nurse; unsure of when last episode was (just started PACE in December) * Pt is currently talking about herself in the third person, having conversations with herself and is unable to carry conversation/answer questions appropriately * Pt in past has been triggered by change, PACE nurse thinks scheduled new appointment with oncologist Dr. Hess at [place] for injectafor triggered anxiety ; pt did not go to appointment * Per PACE nurse, pt also missed 2 doses of Clozapine and Ativan on Saturday; unsure as to why * Consult to Telepsych Dr. Castro for evaluation * CM/SW for possible SNF placement * Per PACE nurse, Maria Ines from [facility] will be trying to visit hospital to see how she is doing and to hopefully give input to D/C plan Hyponatremia * 128 at presentation to ED * NS IVF * Thermotabs * Fluid restriction * Monitor S/P Fall * EMS found the patient on her bedroom floor, not making much sense * Unwitnessed; pt doesn't know why she fell * No acute injuries seen on exam, no symptoms per pt * CT head/brain and cervical spine in ED show nothing acute Multiple skin lesions d/t Inverse Psoriasis * Located on right upper face (size of quarter), right lower ear (size of dime) , under breasts and in groin region * Talked with [facility] nurseJuanito, who states it has actually improved * H/o blistering and "weeping with pus"--> now dry and scaly * Saw towerman Dr. Medina on 01/30 and was diagnosed with Inverse Psorasis per [facility] nurse * Put pt on regimen of Lotramine BID and Lidex BID x 1 month * Dr. Medina then D/C'd Lotramine and plan was to continue Lidex BID 2 weeks on/2 weeks off * At this time, she should not be treated as this is her "week off" from medications * Daily Shower * Keep wounds dry Chronic: Schizophrenia s/p bilateral partial frontal lobotomy Anxiety/Depression HTN HLD GERD Seizures Hypothyroid Anemia Psoriasis Plan: Admitted to Observation She remains stable Other orders as indicated above Routine AM labs Regular diet CM/SW for discharge planning--> Most likely will need SNF placement d/t not thriving with PACE and missing medications DVT Prophylaxis: SCDs GI Prophylaxis: Protonix Code Status: Full Code; PCP: Neetu Bryson
[2018-02-07] MEDS ORDERED: Sodium Chloride 0.9% 1,000 ML IV ONE (10:28)
[2018-02-07] MEDS ORDERED: Sodium Chloride/Potassium Chloride Tab PO ONE (10:45)
[2018-02-07] MEDS: Saccharomyces Boulardii (Probiotic) 250 MG Cap PO SCH (10:46)
[2018-02-07] MEDS: Atenolol 50 MG Tab PO SCH (10:46)
[2018-02-07] MEDS: Pantoprazole 40 MG Tab.CR PO SCH (10:47)
[2018-02-07] MEDS: Iron Polysaccharides Complex 150 MG Cap PO SCH (12:07)
[2018-02-07] MEDS ORDERED: LORazepam 2 MG/ML SDV IVPUSH PRN (13:33)
[2018-02-07] MEDS: cloZAPine 100 MG Tab PO SCH ×3 (14:46→21:25)
[2018-02-07] MEDS: Sodium Chloride/Potassium Chloride Tab PO SCH (21:23)
[2018-02-07] MEDS: Donepezil 10 MG Tab PO SCH (21:23)
[2018-02-07] MEDS: Memantine 10 MG Tab PO SCH (21:26)
[2018-02-08] MEDS: Sodium Chloride 0.9% 1,000 ML IV SCH ×3 (02:55→18:44)
[2018-02-08] MEDS: Levothyroxine 88 MCG Tab PO SCH (08:27)
[2018-02-08] MEDS: Memantine 10 MG Tab PO SCH ×2 (08:28→22:29)
[2018-02-08] MEDS: Pantoprazole 40 MG Tab.CR PO SCH (08:28)
[2018-02-08] MEDS: Sodium Chloride/Potassium Chloride Tab PO SCH ×2 (08:28→22:29)
[2018-02-08] MEDS: Saccharomyces Boulardii (Probiotic) 250 MG Cap PO SCH (08:28)
[2018-02-08] MEDS: cloZAPine 100 MG Tab PO SCH ×4 (08:28→22:30)
[2018-02-08] MEDS: Atenolol 50 MG Tab PO SCH (08:29)
[2018-02-08] MEDS: Iron Polysaccharides Complex 150 MG Cap PO SCH (13:15)
[2018-02-08] MEDS ORDERED: Aluminum Hydroxide/Magnesium Hydroxide/Simethicone Susp 30 ML Cup PO ONE (16:40)
--- NOTE | 2018-02-08 17:57 | PCM.PN ---
- General Info Date of Service: 02/08/18 Subjective Update: Patient has had fluid restriction with low sodium, modest improvement has occurred. She has refused to speak to Dr Castro, but appears to be less psychotic compared to yesterday, 02/07/18. Functional Status: Reports: Ambulating, Urinating - Review of Systems General: Reports: No Symptoms HEENT: Reports: No Symptoms Pulmonary: Reports: No Symptoms Cardiovascular: Reports: No Symptoms Gastrointestinal: Reports: Constipation Genitourinary: Reports: No Symptoms Musculoskeletal: Reports: No Symptoms Skin: Reports: No Symptoms Neurological: Reports: No Symptoms Psychiatric: Reports: No Symptoms - Patient Data Vitals - Most Recent: Last Vital Signs Temp 36.7 C 02/08/18 16:54 Pulse 88 02/08/18 16:54 Resp 20 02/08/18 16:54 BP 132/80 02/08/18 16:54 Pulse Ox 94 L 02/08/18 16:54 Weight - Most Recent: 78.97 kg I&O - Last 24 Hours: Intake & Output 02/08/18 02/08/18 02/08/18 06:59 14:59 22:59 Intake Total 2258 2300 Output Total 100 Balance 2258 2200 Lab Results Last 24 Hours: Laboratory Results - last 24 hr 02/08/18 02/08/18 Range/Units 10:35 10:35 WBC 11.50 H (3.98-10.04) K/mm3 RBC 3.70 L (3.98-5.22) M/mm3 Hgb 10.0 L (11.2-15.7) gm/L Hct 30.9 L (34.1-44.9) % MCV 83.5 (79.4-94.8) fl MCH 27.0 (25.6-32.2) pg MCHC 32.4 (32.2-35.5) g/dl RDW Std Deviation 50.0 H (36.4-46.3) fL Plt Count 397 H (182-369) K/mm3 MPV 8.2 L (9.4-12.3) fl Neut % (Auto) 80.5 H (34.0-71.1) % Lymph % (Auto) 7.1 L (19.3-51.7) % [place] % (Auto) 10.1 (4.7-12.5) % Eos % (Auto) 2.0 (0.7-5.8) Baso % (Auto) 0.1 (0.1-1.2) % Neut # (Auto) 9.26 H (1.56-6.13) K/mm3 Lymph # (Auto) 0.82 L (1.18-3.74) K/mm3 [place] # (Auto) 1.16 H (0.24-0.36) K/mm3 Eos # (Auto) 0.23 (0.04-0.36) K/mm3 Baso # (Auto) 0.01 (0.01-0.08) K/mm3 Manual Slide Review Abnormal smear Sodium 131 L (136-145) mEq/L Potassium 4.1 (3.5-5.1) mEq/L Chloride 99 (98-107) mEq/L Carbon Dioxide 26 (21-32) mEq/L Anion Gap 10.1 (5-15) BUN 9 (7-18) mg/dL Creatinine 0.9 (0.55-1.02) mg/dL Est Cr Clr Drug Dosing 58.32 mL/min Estimated GFR (MDRD) > 60 (>60) mL/min BUN/Creatinine Ratio 10.0 L (14-18) Glucose 123 H (80-115) mg/dL Calcium 8.5 (8.5-10.1) mg/dL Magnesium 1.9 (1.8-2.4) mg/dl C-Reactive Protein 4.5 H* (<1.0) mg/dL Med Orders - Current: Current Medications Atenolol (Tenormin) 50 mg PO DAILY [facility] Last Admin: 02/08/18 08:29 Dose: 50 mg Clozapine (Clozapine) 150 mg PO BEDTIME [facility] Last Admin: 02/07/18 21:24 Dose: 150 mg Clozapine (Clozapine) 200 mg PO TID [facility] Last Admin: 02/08/18 17:00 Dose: 200 mg Docusate Sodium (Colace) 100 mg PO BID PRN PRN Reason: Constipation Donepezil HCl (Aricept) 10 mg PO BEDTIME [facility] Last Admin: 02/07/18 21:23 Dose: 10 mg Sodium Chloride (Normal Saline) 1,000 mls @ 150 mls/hr IV ASDIRECTED [facility] Last Admin: 02/08/18 09:40 Dose: 150 mls/hr Ibuprofen (Motrin) 200 mg PO Q6H PRN PRN Reason: Pain Levothyroxine Sodium (Synthroid) 88 mcg PO DAILY [facility] Last Admin: 02/08/18 08:27 Dose: 88 mcg Lorazepam (Ativan) 0.5 mg PO TID PRN PRN Reason: Pain Last Admin: 02/07/18 12:08 Dose: 0.5 mg Lorazepam (Ativan) 2 mg IVPUSH Q4H PRN PRN Reason: Seizures Memantine (Namenda) 5 mg PO BID [facility] Last Admin: 02/08/18 08:28 Dose: 5 mg Oral Electrolytes (Thermotabs) 2 each PO BID [facility] Last Admin: 02/08/18 08:28 Dose: 2 each Pantoprazole Sodium (Protonix) 40 mg PO DAILY [facility] Last Admin: 02/08/18 08:28 Dose: 40 mg Polysaccharide Iron Complex (Ferrex 150) 150 mg PO WITHLUNCH [facility] Last Admin: 02/08/18 13:15 Dose: 150 mg Saccharomyces Boulardii (Florastor) 250 mg PO DAILY [facility] Last Admin: 02/08/18 08:28 Dose: 250 mg Discontinued Medications Al Hydroxide/Mg Hydroxide (Mag-Al Plus) 30 ml PO STAT ONE Stop: 02/08/18 16:41 Last Admin: 02/08/18 17:12 Dose: Not Given Sodium Chloride (Normal Saline) 1,000 mls @ 999 mls/hr IV ONETIME ONE Stop: 02/07/18 11:28 Last Admin: 02/07/18 10:43 Dose: 999 mls/hr Oral Electrolytes (Thermotabs) 2 each PO BID [facility] Oral Electrolytes (Thermotabs) 1 each PO BID [facility] Last Admin: 02/07/18 09:44 Dose: 1 each Oral Electrolytes (Thermotabs) 1 each PO ONETIME ONE Stop: 02/07/18 10:46 Last Admin: 02/07/18 10:47 Dose: 1 each - Exam Quality Assessment: DVT Prophylaxis General: Alert, Oriented, Cooperative, No Acute Distress HEENT: Pupils Equal, Pupils Reactive, EOMI Neck: Trachea Midline, No JVD Lungs: Normal Respiratory Effort Cardiovascular: Regular Rate, Regular Rhythm GI/Abdominal Exam: Normal Bowel Sounds, Soft, Non-Tender, No Organomegaly, No Distention (Female) Exam: Deferred Back Exam: Normal Inspection Extremities: Normal Inspection, Normal Capillary Refill Skin: Warm Neurological: No New Focal Deficit, Normal Gait, Normal Speech Psy/Mental Status: Alert - Problem List & Annotations (1) Altered mental status SNOMED Code(s): 618496760 Code(s): R41.82 - ALTERED MENTAL STATUS, UNSPECIFIED Status: Acute Priority: High Current Visit: Yes Qualifiers: Altered mental status type: unspecified Qualified Code(s): R41.82 - Altered mental status, unspecified (2) Hyponatremia SNOMED Code(s): 17499077 Code(s): E87.1 - HYPO-OSMOLALITY AND HYPONATREMIA Status: Acute Priority : High Current Visit: Yes (3) Schizophrenia SNOMED Code(s): 86801951 Code(s): F20.9 - SCHIZOPHRENIA, UNSPECIFIED Status: Chronic Priority: Medium Current Visit: No Qualifiers: Schizophrenia type: paranoid schizophrenia Qualified Code(s): F20.0 - Paranoid schizophrenia (4) Depression SNOMED Code(s): 37192537 Code(s): F32.9 - MAJOR DEPRESSIVE DISORDER, SINGLE EPISODE, UNSPECIFIED Status: Acute Current Visit: Yes (5) Anxiety SNOMED Code(s): 43358455 Code(s): F41.9 - ANXIETY DISORDER, UNSPECIFIED Status: Acute Current Visit: Yes (6) Hyperlipidemia SNOMED Code(s): 49623591 Code(s): E78.5 - HYPERLIPIDEMIA, UNSPECIFIED Status: Acute Current Visit : Yes (7) Hypothyroid SNOMED Code(s): 61250468 Code(s): E03.9 - HYPOTHYROIDISM, UNSPECIFIED Status: Acute Current Visit : Yes - Problem List Review Problem List Initiated/Reviewed/Updated: Yes - My Orders Last 24 Hours: My Active Orders 02/07/18 19:09 Docusate Sodium [Colace] 100 mg PO BID PRN 02/07/18 21:00 Sodium Chloride/KCl [Thermotabs] 2 each PO BID 02/08/18 13:38 Patient Status [ADT] Routine - Plan Plan:: I/P: Acute: AMS 2/2 Manic Episode * Risk Factor: Pt has h/o Schizophrenia w/ Bipolar, has h/o manic episodes that "cycle" * Manic episode started yesterday per [facility] nurse; unsure of when last episode was (just started [facility] in December) * Pt is currently talking about herself in the third person, having conversations with herself and is unable to carry conversation/answer questions appropriately * Pt in past has been triggered by change, [facility] nurse thinks scheduled new appointment with oncologist Dr. Hess at [facility] for injectafor triggered anxiety ; pt did not go to appointment * Per [facility] nurse, pt also missed 2 doses of Clozapine and Ativan on Saturday; unsure as to why * Consult to Telepsych Dr. Castro for evaluation * CM/SW for possible SNF placement * Per [facility] nurse, Maria Ines from [facility] will be trying to visit hospital to see how she is doing and to hopefully give input to D/C plan Hyponatremia * 128 at presentation to ED * NS IVF * Thermotabs * Fluid restriction * Monitor S/P Fall * EMS found the patient on her bedroom floor, not making much sense * Unwitnessed; pt doesn't know why she fell * No acute injuries seen on exam, no symptoms per pt * CT head/brain and cervical spine in ED show nothing acute Multiple skin lesions d/t Inverse Psoriasis * Located on right upper face (size of quarter), right lower ear (size of dime) , under breasts and in groin region * Talked with [facility] nurse, Juanito, who states it has actually improved * H/o blistering and "weeping with pus"--> now dry and scaly * Saw cutting room supervisor Dr. Medina on 01/30 and was diagnosed with Inverse Psorasis per [facility]ANE nurse * Put pt on regimen of Lotramine BID and Lidex BID x 1 month * Dr. Medina then D/C'd Lotramine and plan was to continue Lidex BID 2 weeks on/2 weeks off * At this time, she should not be treated as this is her "week off" from medications * Daily Shower * Keep wounds dry Chronic: Schizophrenia s/p bilateral partial frontal lobotomy Anxiety/Depression HTN HLD GERD Seizures Hypothyroid Anemia Psoriasis Plan: Admitted to Observation, 02/07/18. She remains stable Other orders as indicated above Routine AM labs Regular diet CM/SW for discharge planning--> Most likely will need SNF placement d/t not thriving with [facility] and missing medications DVT Prophylaxis: SCDs GI Prophylaxis: Protonix Code Status: Full Code; PCP: Neetu Bryson Change status to inpatient with persistent hyponatremia and confusion.
[2018-02-08] MEDS: Donepezil 10 MG Tab PO SCH (22:30)
[2018-02-09] MEDS: Sodium Chloride 0.9% 1,000 ML IV SCH ×3 (01:22→15:03)
[2018-02-09] MEDS: Saccharomyces Boulardii (Probiotic) 250 MG Cap PO SCH (08:28)
[2018-02-09] MEDS: Levothyroxine 88 MCG Tab PO SCH (08:29)
[2018-02-09] MEDS: Pantoprazole 40 MG Tab.CR PO SCH (08:29)
[2018-02-09] MEDS: Atenolol 50 MG Tab PO SCH (08:30)
[2018-02-09] MEDS: Memantine 10 MG Tab PO SCH ×2 (08:30→21:23)
[2018-02-09] MEDS: cloZAPine 100 MG Tab PO SCH ×4 (08:32→21:27)
[2018-02-09] MEDS: Sodium Chloride/Potassium Chloride Tab PO SCH ×2 (08:44→21:15)
[2018-02-09] MEDS: Iron Polysaccharides Complex 150 MG Cap PO SCH (11:40)
[2018-02-09] MEDS ORDERED: Magnesium Sulfate/Water 4 GM in Premix Bag 1 BAG IV ONE (15:15)
--- NOTE | 2018-02-09 16:26 | PCM.PN ---
- General Info Date of Service: 02/09/18 Subjective Update: Patient is refusing meds and food trays. Continues to talk in the third person. Functional Status: Reports: Pain Controlled - Review of Systems General: Reports: No Symptoms HEENT: Reports: No Symptoms Pulmonary: Reports: No Symptoms Cardiovascular: Reports: No Symptoms Gastrointestinal: Reports: No Symptoms Genitourinary: Reports: No Symptoms Musculoskeletal: Reports: No Symptoms Skin: Reports: No Symptoms Neurological: Reports: No Symptoms Psychiatric: Reports: No Symptoms - Patient Data Vitals - Most Recent: Last Vital Signs Temp 36.9 C 02/09/18 08:32 Pulse 89 02/09/18 08:32 Resp 18 02/09/18 08:32 BP 147/88 H 02/09/18 08:32 Pulse Ox 97 02/09/18 08:32 Weight - Most Recent: 82.418 kg I&O - Last 24 Hours: Intake & Output 02/09/18 02/09/18 02/09/18 06:59 14:59 22:59 Intake Total 2633 Output Total 850 Balance 1783 Lab Results Last 24 Hours: Laboratory Results - last 24 hr 02/09/18 02/09/18 Range/Units 10:38 10:38 WBC 12.18 H (3.98-10.04) K/mm3 RBC 3.50 L (3.98-5.22) M/mm3 Hgb 9.6 L (11.2-15.7) gm/L Hct 29.5 L (34.1-44.9) % MCV 84.3 (79.4-94.8) fl MCH 27.4 (25.6-32.2) pg MCHC 32.5 (32.2-35.5) g/dl RDW Std Deviation 50.2 H (36.4-46.3) fL Plt Count 356 (182-369) K/mm3 MPV 8.4 L (9.4-12.3) fl Neut % (Auto) 80.4 H (34.0-71.1) % Lymph % (Auto) 8.1 L (19.3-51.7) % [place] % (Auto) 9.2 (4.7-12.5) % Eos % (Auto) 1.9 (0.7-5.8) Baso % (Auto) 0.2 (0.1-1.2) % Neut # (Auto) 9.79 H (1.56-6.13) K/mm3 Lymph # (Auto) 0.99 L (1.18-3.74) K/mm3 [place] # (Auto) 1.12 H (0.24-0.36) K/mm3 Eos # (Auto) 0.23 (0.04-0.36) K/mm3 Baso # (Auto) 0.02 (0.01-0.08) K/mm3 Manual Slide Review Abnormal smear Sodium 128 L (136-145) mEq/L Potassium 3.9 (3.5-5.1) mEq/L Chloride 98 (98-107) mEq/L Carbon Dioxide 23 (21-32) mEq/L Anion Gap 10.9 (5-15) BUN 8 (7-18) mg/dL Creatinine 0.8 (0.55-1.02) mg/dL Est Cr Clr Drug Dosing 65.61 mL/min Estimated GFR (MDRD) > 60 (>60) mL/min BUN/Creatinine Ratio 10.0 L (14-18) Glucose 100 (80-115) mg/dL Calcium 7.8 L (8.5-10.1) mg/dL Magnesium 1.7 L (1.8-2.4) mg/dl Med Orders - Current: Current Medications Atenolol (Tenormin) 50 mg PO DAILY [facility] Last Admin: 02/09/18 08:30 Dose: 50 mg Clozapine (Clozapine) 150 mg PO BEDTIME [facility] Last Admin: 02/08/18 22:30 Dose: 150 mg Clozapine (Clozapine) 200 mg PO TID [facility] Last Admin: 02/09/18 14:59 Dose: 200 mg Docusate Sodium (Colace) 100 mg PO BID PRN PRN Reason: Constipation Donepezil HCl (Aricept) 10 mg PO BEDTIME [facility] Last Admin: 02/08/18 22:30 Dose: 10 mg Sodium Chloride (Normal Saline) 1,000 mls @ 150 mls/hr IV ASDIRECTED [facility] Last Admin: 02/09/18 15:03 Dose: 150 mls/hr Ibuprofen (Motrin) 200 mg PO Q6H PRN PRN Reason: Pain Levothyroxine Sodium (Synthroid) 88 mcg PO DAILY [facility] Last Admin: 02/09/18 08:29 Dose: 88 mcg Lorazepam (Ativan) 0.5 mg PO TID PRN PRN Reason: Pain Last Admin: 02/07/18 12:08 Dose: 0.5 mg Lorazepam (Ativan) 2 mg IVPUSH Q4H PRN PRN Reason: Seizures Memantine (Namenda) 5 mg PO BID [facility] Last Admin: 02/09/18 08:30 Dose: 5 mg Oral Electrolytes (Thermotabs) 2 each PO BID [facility] Last Admin: 02/09/18 08:44 Dose: 2 each Pantoprazole Sodium (Protonix) 40 mg PO DAILY [facility] Last Admin: 02/09/18 08:29 Dose: 40 mg Polysaccharide Iron Complex (Ferrex 150) 150 mg PO WITHLUNCH [facility] Last Admin: 02/09/18 11:40 Dose: 150 mg Saccharomyces Boulardii (Florastor) 250 mg PO DAILY [facility] Last Admin: 02/09/18 08:28 Dose: 250 mg Discontinued Medications Al Hydroxide/Mg Hydroxide (Mag-Al Plus) 30 ml PO STAT ONE Stop: 02/08/18 16:41 Last Admin: 02/08/18 17:12 Dose: Not Given Sodium Chloride (Normal Saline) 1,000 mls @ 999 mls/hr IV ONETIME ONE Stop: 02/07/18 11:28 Last Admin: 02/07/18 10:43 Dose: 999 mls/hr Magnesium Sulfate 4 gm/ Premix 100 mls @ 25 mls/hr IV ONETIME ONE Stop: 02/09/18 15:16 Oral Electrolytes (Thermotabs) 2 each PO BID [facility] Oral Electrolytes (Thermotabs) 1 each PO BID [facility] Last Admin: 02/07/18 09:44 Dose: 1 each Oral Electrolytes (Thermotabs) 1 each PO ONETIME ONE Stop: 02/07/18 10:46 Last Admin: 02/07/18 10:47 Dose: 1 each - Exam Quality Assessment: DVT Prophylaxis General: Alert, No Acute Distress HEENT: Pupils Equal, Pupils Reactive, EOMI Neck: Trachea Midline Lungs: Normal Respiratory Effort, Decreased Breath Sounds Cardiovascular: Regular Rate, Regular Rhythm GI/Abdominal Exam: Normal Bowel Sounds, Soft, Non-Tender, No Organomegaly, No Distention (Female) Exam: Deferred Back Exam: Normal Inspection Extremities: Normal Inspection, Non-Tender, Normal Capillary Refill Skin: Warm Neurological: No New Focal Deficit Psy/Mental Status: Alert - Problem List & Annotations (1) Altered mental status SNOMED Code(s): 971712847 Code(s): R41.82 - ALTERED MENTAL STATUS, UNSPECIFIED Status: Acute Priority: High Current Visit: Yes Qualifiers: Altered mental status type: delirium Qualified Code(s): R41.0 - Disorientation, unspecified (2) Hyponatremia SNOMED Code(s): 35227813 Code(s): E87.1 - HYPO-OSMOLALITY AND HYPONATREMIA Status: Acute Priority : High Current Visit: Yes (3) Schizophrenia SNOMED Code(s): 59041878 Code(s): F20.9 - SCHIZOPHRENIA, UNSPECIFIED Status: Chronic Priority: Medium Current Visit: No Qualifiers: Schizophrenia type: paranoid schizophrenia Qualified Code(s): F20.0 - Paranoid schizophrenia (4) Depression SNOMED Code(s): 30765967 Code(s): F32.9 - MAJOR DEPRESSIVE DISORDER, SINGLE EPISODE, UNSPECIFIED Status: Acute Priority: High Current Visit: Yes Qualifiers: Depression Type: unspecified Qualified Code(s): F32.9 - Major depressive disorder, single episode, unspecified (5) Anxiety SNOMED Code(s): 95351080 Code(s): F41.9 - ANXIETY DISORDER, UNSPECIFIED Status: Acute Priority: High Current Visit: Yes (6) Hyperlipidemia SNOMED Code(s): 83522031 Code(s): E78.5 - HYPERLIPIDEMIA, UNSPECIFIED Status: Acute Current Visit : Yes (7) Hypothyroid SNOMED Code(s): 53275561 Code(s): E03.9 - HYPOTHYROIDISM, UNSPECIFIED Status: Acute Current Visit : Yes - Problem List Review Problem List Initiated/Reviewed/Updated: Yes - My Orders Last 24 Hours: My Active Orders 02/09/18 21:00 Sodium Chloride/KCl [Thermotabs] 3 each PO BID 02/09/18 Breakfast High Fiber Diet [DIET] - Plan Plan:: I/P: Acute: AMS 2/2 Manic Episode * Risk Factor: Pt has h/o Schizophrenia w/ Bipolar, has h/o manic episodes that "cycle" * Manic episode started yesterday per [facility] nurse; unsure of when last episode was (just started [facility] in December) * Pt is currently talking about herself in the third person, having conversations with herself and is unable to carry conversation/answer questions appropriately * Pt in past has been triggered by change, [facility] nurse thinks scheduled new appointment with oncologist Dr. Hess at [facility] for injectafor triggered anxiety ; pt did not go to appointment * Per [facility] nurse, pt also missed 2 doses of Clozapine and Ativan on Saturday; unsure as to why * Consult to Telepsych Dr. Castro for evaluation * CM/SW for possible SNF placement * Per [facility] nurse, Maria Ines from [facility] will be trying to visit hospital to see how she is doing and to hopefully give input to D/C plan Hyponatremia * 128 at presentation to ED * NS IVF * Thermotabs * Fluid restriction * Monitor S/P Fall * EMS found the patient on her bedroom floor, not making much sense * Unwitnessed; pt doesn't know why she fell * No acute injuries seen on exam, no symptoms per pt * CT head/brain and cervical spine in ED show nothing acute Multiple skin lesions d/t Inverse Psoriasis * Located on right upper face (size of quarter), right lower ear (size of dime) , under breasts and in groin region * Talked with [facility] nurse, Juanito, who states it has actually improved * H/o blistering and "weeping with pus"--> now dry and scaly * Saw senior ssis developer Dr. Medina on 01/30 and was diagnosed with Inverse Psorasis per [facility] nurse * Put pt on regimen of Lotramine BID and Lidex BID x 1 month * Dr. Medina then D/C'd Lotramine and plan was to continue Lidex BID 2 weeks on/2 weeks off * At this time, she should not be treated as this is her "week off" from medications * Daily Shower * Keep wounds dry Chronic: Schizophrenia s/p bilateral partial frontal lobotomy Anxiety/Depression HTN HLD GERD Seizures Hypothyroid Anemia Psoriasis Plan: Admitted to Observation, 02/07/18. She remains stable Other orders as indicated above Routine AM labs Regular diet CM/SW for discharge planning--> Most likely will need SNF placement d/t not thriving with [facility] and missing medications DVT Prophylaxis: SCDs GI Prophylaxis: Protonix Code Status: Full Code; PCP: Neetu rByson Change status to inpatient with persistent hyponatremia and confusion.
[2018-02-09] MEDS: Docusate Sodium 100 MG Cap PO PRN (21:12)
[2018-02-09] MEDS: Donepezil 10 MG Tab PO SCH ×2 (21:23→21:24)
[2018-02-10] MEDS: Saccharomyces Boulardii (Probiotic) 250 MG Cap PO SCH (11:26)
[2018-02-10] MEDS: Memantine 10 MG Tab PO SCH (11:26)
[2018-02-10] MEDS: cloZAPine 100 MG Tab PO SCH ×2 (11:26→16:26)
[2018-02-10] MEDS: Levothyroxine 88 MCG Tab PO SCH (11:26)
[2018-02-10] MEDS: Pantoprazole 40 MG Tab.CR PO SCH (11:26)
[2018-02-10] MEDS: Sodium Chloride/Potassium Chloride Tab PO SCH (11:27)
[2018-02-10] MEDS: Atenolol 50 MG Tab PO SCH (11:27)
[2018-02-10] MEDS: Iron Polysaccharides Complex 150 MG Cap PO SCH (11:27)
[2018-02-10] MEDS ORDERED: LORazepam 2 MG/ML SDV IVPUSH ONE (13:39)
[2018-02-10] MEDS ORDERED: Haloperidol Lactate 5 MG/ML SDV IVPUSH ONE (13:40)
[2018-02-10] MEDS ORDERED: OLANZapine 10 MG Vial IM ONE (14:00)
--- NOTE | 2018-02-10 14:58 | PCM.PN ---
<Alcon Ponce - Last Filed: 02/10/18 15:06> - General Info Date of Service: 02/10/18 Admission Dx/Problem (Free Text): Admission Diagnosis/Problem Admission Diagnosis/Problem Hyponatremia Subjective Update: In to attempt to see Claudia. She is lying in bed and having a psychotic episode today. She has been rambling on about random things. She has been having very random thoughts and told the night nurse she is cut in half. When I walk in the room she asks me who I am and when I explained she yells "You are the right -hand man." I discussed the need for her to take her medications as nursing reports she has been refusing everything. She refuses her medications today. I explained to her that she needs to taker her medications so she can be discharged. She tells me she doesn't care and will stay here as long as she can. Nursing reports she has been referring to herself in 3rd person. Nurse reports she attempted to take vital signs and give medications and Beckie tensed up and tried to push her away. She unfortunately refused labs today and we are trying to improve/monitor her sodium. Dr. Cummins contacted Dr. Pritchett from [facility] psychiatry in [place]. He suggests we give her ativan and Haldol to improve her symptoms and allow us to draw labs. She has an allergy listed to haldol so we will give 2.5mg IM Zyprexa. He states he will take her in [place] once her sodium improves. Once medications tonight take effect we will attempt to draw labs and plan for transfer if everything looks good. Functional Status: Reports: Pain Controlled, Tolerating Diet, Urinating. Denies : Ambulating - Review of Systems Systems Review Comment:: Patient refuses to answer any questions and yells to get out of her room. Nursing has had similar experiences and she is refusing all lab draws - Patient Data Vitals - Most Recent: Last Vital Signs Temp 97.7 F 02/10/18 07:21 Pulse 82 02/10/18 07:21 Resp 20 02/10/18 07:21 BP 134/86 02/10/18 07:21 Pulse Ox 96 02/10/18 07:21 Weight - Most Recent: 86.273 kg I&O - Last 24 Hours: Intake & Output 02/09/18 02/10/18 02/10/18 22:59 06:59 14:59 Intake Total 3287 400 Output Total 500 850 Balance 2787 -450 Med Orders - Current: Current Medications Atenolol (Tenormin) 50 mg PO DAILY [facility] Last Admin: 02/10/18 11:27 Dose: Not Given Clozapine (Clozapine) 150 mg PO BEDTIME [facility] Last Admin: 02/09/18 21:26 Dose: 150 mg Clozapine (Clozapine) 200 mg PO TID [facility] Last Admin: 02/10/18 11:26 Dose: Not Given Docusate Sodium (Colace) 100 mg PO BID PRN PRN Reason: Constipation Last Admin: 02/09/18 21:12 Dose: 100 mg Donepezil HCl (Aricept) 10 mg PO BEDTIME [facility] Last Admin: 02/09/18 21:24 Dose: 10 mg Ibuprofen (Motrin) 200 mg PO Q6H PRN PRN Reason: Pain Levothyroxine Sodium (Synthroid) 88 mcg PO DAILY [facility] Last Admin: 02/10/18 11:26 Dose: Not Given Lorazepam (Ativan) 0.5 mg PO TID PRN PRN Reason: Pain Last Admin: 02/07/18 12:08 Dose: 0.5 mg Lorazepam (Ativan) 2 mg IVPUSH Q4H PRN PRN Reason: Seizures Memantine (Namenda) 5 mg PO BID [facility] Last Admin: 02/10/18 11:26 Dose: Not Given Oral Electrolytes (Thermotabs) 3 each PO BID [facility] Last Admin: 02/10/18 11:27 Dose: Not Given Pantoprazole Sodium (Protonix) 40 mg PO DAILY [facility] Last Admin: 02/10/18 11:26 Dose: Not Given Polysaccharide Iron Complex (Ferrex 150) 150 mg PO WITHLUNCH [facility] Last Admin: 02/10/18 11:27 Dose: Not Given Saccharomyces Boulardii (Florastor) 250 mg PO DAILY [facility] Last Admin: 02/10/18 11:26 Dose: Not Given Discontinued Medications Al Hydroxide/Mg Hydroxide (Mag-Al Plus) 30 ml PO STAT ONE Stop: 02/08/18 16:41 Last Admin: 02/08/18 17:12 Dose: Not Given Sodium Chloride (Normal Saline) 1,000 mls @ 150 mls/hr IV ASDIRECTED [facility] Last Admin: 02/09/18 15:03 Dose: 150 mls/hr Sodium Chloride (Normal Saline) 1,000 mls @ 999 mls/hr IV ONETIME ONE Stop: 02/07/18 11:28 Last Admin: 02/07/18 10:43 Dose: 999 mls/hr Magnesium Sulfate 4 gm/ Premix 100 mls @ 25 mls/hr IV ONETIME ONE Stop: 02/09/18 15:16 Last Admin: 02/09/18 17:14 Dose: 25 mls/hr Lorazepam (Ativan) 5 mg IVPUSH ONETIME ONE Stop: 02/10/18 13:40 Last Admin: 02/10/18 14:38 Dose: 5 mg Olanzapine (Zyprexa) 2.5 mg IM ONETIME ONE Stop: 02/10/18 14:01 Last Admin: 02/10/18 14:38 Dose: 2.5 mg Oral Electrolytes (Thermotabs) 2 each PO BID NAEL Oral Electrolytes (Thermotabs) 1 each PO BID NAEL Last Admin: 02/07/18 09:44 Dose: 1 each Oral Electrolytes (Thermotabs) 2 each PO BID NAEL Last Admin: 02/09/18 08:44 Dose: 2 each Oral Electrolytes (Thermotabs) 1 each PO ONETIME ONE Stop: 02/07/18 10:46 Last Admin: 02/07/18 10:47 Dose: 1 each - Exam Quality Assessment: DVT Prophylaxis General: Alert, No Acute Distress. No: Oriented, Cooperative Skin: Warm, Dry, Intact Psy/Mental Status: Alert, Labile Mood, Agitated, Hallucinations Physical Findings Comments:: Patient refused to allow exam yelling "get out of my room!" She does not allow additional attempts to examine her. - Problem List & Annotations (1) Altered mental status SNOMED Code(s): 757036225 Code(s): R41.82 - ALTERED MENTAL STATUS, UNSPECIFIED Status: Acute Priority: High Current Visit: Yes Qualifiers: Altered mental status type: delirium Qualified Code(s): R41.0 - Disorientation, unspecified (2) Anxiety SNOMED Code(s): 20626368 Code(s): F41.9 - ANXIETY DISORDER, UNSPECIFIED Status: Acute Priority: High Current Visit: Yes (3) Depression SNOMED Code(s): 32434374 Code(s): F32.9 - MAJOR DEPRESSIVE DISORDER, SINGLE EPISODE, UNSPECIFIED Status: Acute Priority: High Current Visit: Yes Qualifiers: Depression Type: unspecified Qualified Code(s): F32.9 - Major depressive disorder, single episode, unspecified (4) Hyponatremia SNOMED Code(s): 99834614 Code(s): E87.1 - HYPO-OSMOLALITY AND HYPONATREMIA Status: Acute Priority : High Current Visit: Yes (5) Fall at home SNOMED Code(s): 38408702 Code(s): W19.XXXA - UNSPECIFIED FALL, INITIAL ENCOUNTER; Y92.009 - UNSP PLACE IN UNSP NON-INSTITUT (PRIVATE) RESIDENCE PLACE Status: Acute Priority: High Current Visit: Yes (6) Inverse psoriasis SNOMED Code(s): 60985494 Code(s): L40.8 - OTHER PSORIASIS Status: Acute Priority: High Current Visit: Yes - Problem List Review Problem List Initiated/Reviewed/Updated: Yes - Plan Plan:: I/P: Acute: AMS 2/2 Manic Episode * Risk Factor: Pt has h/o Schizophrenia w/ Bipolar, has h/o manic episodes that "cycle" * Manic episode started day before ED arrival per [facility] nurse; unsure of when last episode was (just started [facility] in December) * Pt is currently talking about herself in the third person, having conversations with herself and is unable to carry conversation/answer questions appropriately * Pt in past has been triggered by change, [facility] nurse thinks scheduled new appointment with oncologist Dr. Hess at [facility] for injectafor triggered anxiety ; pt did not go to appointment * Per [facility] nurse, pt also missed 2 doses of Clozapine and Ativan on Saturday; unsure as to why * Consult to Telepsych Dr. Castro for evaluation * CM/SW for possible SNF placement * Per [facility] nurse, Maria Ines from [facility] will be trying to visit hospital to see how she is doing and to hopefully give input to D/C plan * Dr. Pritchett contacted by Dr. Cummins. He suggests Haldol and Ativan to allow for lab draw. If sodium improved and she is medically stable he will accept her at [facility] in [place]. Hyponatremia * 128 at presentation to ED * Continues to be 128 * Attempt lab draw later today as patient has been refusing * NS IVF * Thermotabs * Fluid restriction * Pending lab results will consider hypertonic saline * Monitor S/P Fall * EMS found the patient on her bedroom floor, not making much sense * Unwitnessed; pt doesn't know why she fell * No acute injuries seen on exam, no symptoms per pt * CT head/brain and cervical spine in ED show nothing acute Multiple skin lesions d/t Inverse Psoriasis * Located on right upper face (size of quarter), right lower ear (size of dime) , under breasts and in groin region * Talked with [facility] nurseJuanito, who states it has actually improved * H/o blistering and "weeping with pus"--> now dry and scaly * Saw chaser apprentice Dr. Medina on 01/30 and was diagnosed with Inverse Psorasis per [facility] nurse * Put pt on regimen of Lotramine BID and Lidex BID x 1 month * Dr. Medina then D/C'd Lotramine and plan was to continue Lidex BID 2 weeks on/2 weeks off * At this time, she should not be treated as this is her "week off" from medications * Daily Shower * Keep wounds dry Chronic: Schizophrenia s/p bilateral partial frontal lobotomy Anxiety/Depression HTN HLD GERD Seizures Hypothyroid Anemia Psoriasis Plan: Admitted to Observation, 02/07/18 --> Upgrade to full admit with hyponatremia and confusion She remains stable Other orders as indicated above Routine AM labs Regular diet CM/SW for discharge planning DVT Prophylaxis: SCDs GI Prophylaxis: Protonix Code Status: Full Code; PCP: Neetu Bryson Placement pending for psychiatry at [facility] in [place] pending repeat sodium level. <Nadia Cummins - Last Filed: 02/11/18 19:42> - Patient Data Vitals - Most Recent: Last Vital Signs Temp 36.6 C 02/11/18 12:16 Pulse 88 02/11/18 12:17 Resp 22 H 02/11/18 12:16 BP 134/65 02/11/18 12:56 Pulse Ox 95 02/11/18 12:17 I&O - Last 24 Hours: Intake & Output 02/11/18 02/11/18 02/11/18 06:59 14:59 22:59 Intake Total 965 219 2702 Output Total 1050 600 Balance -736 409 3783 Lab Results Last 24 Hours: Laboratory Results - last 24 hr 02/11/18 02/11/18 02/11/18 Range/Units 06:18 06:18 17:40 WBC 10.60 H (3.98-10.04) K/mm3 RBC 3.61 L (3.98-5.22) M/mm3 Hgb 9.6 L (11.2-15.7) gm/L Hct 29.9 L (34.1-44.9) % MCV 82.8 (79.4-94.8) fl MCH 26.6 (25.6-32.2) pg MCHC 32.1 L (32.2-35.5) g/dl RDW Std Deviation 48.2 H (36.4-46.3) fL Plt Count 366 (182-369) K/mm3 MPV 8.4 L (9.4-12.3) fl Neut % (Auto) 76.3 H (34.0-71.1) % Lymph % (Auto) 10.1 L (19.3-51.7) % [place]oux % (Auto) 9.1 (4.7-12.5) % Eos % (Auto) 3.7 (0.7-5.8) Baso % (Auto) 0.3 (0.1-1.2) % Neut # (Auto) 8.10 H (1.56-6.13) K/mm3 Lymph # (Auto) 1.07 L (1.18-3.74) K/mm3 [place] # (Auto) 0.96 H (0.24-0.36) K/mm3 Eos # (Auto) 0.39 H (0.04-0.36) K/mm3 Baso # (Auto) 0.03 (0.01-0.08) K/mm3 Sodium 125 L 124 L (136-145) mEq/L Potassium 3.8 (3.5-5.1) mEq/L Chloride 97 L (98-107) mEq/L Carbon Dioxide 21 (21-32) mEq/L Anion Gap 10.8 (5-15) BUN 7 (7-18) mg/dL Creatinine 0.7 (0.55-1.02) mg/dL Est Cr Clr Drug Dosing 74.98 mL/min Estimated GFR (MDRD) > 60 (>60) mL/min BUN/Creatinine Ratio 10.0 L (14-18) Glucose 73 L (80-115) mg/dL Calcium 8.1 L (8.5-10.1) mg/dL Med Orders - Current: Current Medications Albuterol/Ipratropium (Duoneb 3.0-0.5 Mg/3 Ml) 3 ml NEB QID PRN PRN Reason: Shortness of Breath Atenolol (Tenormin) 50 mg PO DAILY [facility] Last Admin: 02/11/18 08:21 Dose: 50 mg Clozapine (Clozapine) 150 mg PO BEDTIME NAEL Last Admin: 02/11/18 00:58 Dose: 150 mg Clozapine (Clozapine) 200 mg PO TID [facility] Last Admin: 02/11/18 14:24 Dose: 200 mg Docusate Sodium (Colace) 100 mg PO BID PRN PRN Reason: Constipation Last Admin: 02/11/18 17:45 Dose: 100 mg Donepezil HCl (Aricept) 10 mg PO BEDTIME [facility] Last Admin: 02/11/18 01:02 Dose: 10 mg Sodium Chloride (Sodium Chloride 3%) 500 mls @ 10 mls/hr IV ASDIRECTED [facility] Last Admin: 02/10/18 16:39 Dose: 4 mls/hr Cefepime HCl 1 gm/ Premix 50 mls @ 100 mls/hr IV Q12H [facility] Last Admin: 02/11/18 08:21 Dose: 100 mls/hr Ibuprofen (Motrin) 200 mg PO Q6H PRN PRN Reason: Pain Latanoprost (Xalatan 0.005% Ophth Soln) 0 ml EYEBOTH BEDTIME [facility] Levothyroxine Sodium (Synthroid) 88 mcg PO DAILY [facility] Last Admin: 02/11/18 08:20 Dose: 88 mcg Lorazepam (Ativan) 2 mg IVPUSH Q4H PRN PRN Reason: Seizures Lorazepam (Ativan) 0.5 mg PO TID [facility] Last Admin: 02/11/18 14:24 Dose: 0.5 mg Memantine (Namenda) 10 mg PO DAILY [facility] Memantine (Namenda) 5 mg PO BEDTIME [facility] Oral Electrolytes (Thermotabs) 3 each PO TID [facility] Pantoprazole Sodium (Protonix) 40 mg PO DAILY [facility] Last Admin: 02/11/18 08:21 Dose: 40 mg Polysaccharide Iron Complex (Ferrex 150) 150 mg PO WITHLUNCH [facility] Last Admin: 02/11/18 10:55 Dose: 150 mg Saccharomyces Boulardii (Florastor) 250 mg PO DAILY [facility] Last Admin: 02/11/18 08:20 Dose: 250 mg Tamsulosin HCl (Flomax) 0.4 mg PO BIDPC [facility] Last Admin: 02/11/18 17:45 Dose: 0.4 mg Discontinued Medications Al Hydroxide/Mg Hydroxide (Mag-Al Plus) 30 ml PO STAT ONE Stop: 02/08/18 16:41 Last Admin: 02/08/18 17:12 Dose: Not Given Furosemide (Lasix) 20 mg IVPUSH NOW ONE Stop: 02/11/18 16:31 Last Admin: 02/11/18 17:46 Dose: 20 mg Sodium Chloride (Normal Saline) 1,000 mls @ 150 mls/hr IV ASDIRECTED [facility] Last Admin: 02/09/18 15:03 Dose: 150 mls/hr Sodium Chloride (Normal Saline) 1,000 mls @ 999 mls/hr IV ONETIME ONE Stop: 02/07/18 11:28 Last Admin: 02/07/18 10:43 Dose: 999 mls/hr Magnesium Sulfate 4 gm/ Premix 100 mls @ 25 mls/hr IV ONETIME ONE Stop: 02/09/18 15:16 Last Admin: 02/09/18 17:14 Dose: 25 mls/hr Cefepime HCl 1 gm/ Premix 50 mls @ 100 mls/hr IV Q8H [facility] Last Admin: 02/10/18 20:02 Dose: 100 mls/hr Lorazepam (Ativan) 0.5 mg PO TID PRN PRN Reason: Pain Last Admin: 02/07/18 12:08 Dose: 0.5 mg Lorazepam (Ativan) 5 mg IVPUSH ONETIME ONE Stop: 02/10/18 13:40 Last Admin: 02/10/18 14:38 Dose: 5 mg Memantine (Namenda) 5 mg PO BID [facility] Last Admin: 02/11/18 08:20 Dose: 5 mg Olanzapine (Zyprexa) 2.5 mg IM ONETIME ONE Stop: 02/10/18 14:01 Last Admin: 02/10/18 14:38 Dose: 2.5 mg Oral Electrolytes (Thermotabs) 2 each PO BID NAEL Oral Electrolytes (Thermotabs) 1 each PO BID NAEL Last Admin: 02/07/18 09:44 Dose: 1 each Oral Electrolytes (Thermotabs) 2 each PO BID NAEL Last Admin: 02/09/18 08:44 Dose: 2 each Oral Electrolytes (Thermotabs) 1 each PO ONETIME ONE Stop: 02/07/18 10:46 Last Admin: 02/07/18 10:47 Dose: 1 each Oral Electrolytes (Thermotabs) 3 each PO BID NAEL Last Admin: 02/11/18 08:20 Dose: 3 each - Problem List & Annotations (1) Altered mental status SNOMED Code(s): 987361986 Code(s): R41.82 - ALTERED MENTAL STATUS, UNSPECIFIED Status: Acute Priority: High Current Visit: Yes Qualifiers: Altered mental status type: delirium Qualified Code(s): R41.0 - Disorientation, unspecified (2) Hyponatremia SNOMED Code(s): 85035732 Code(s): E87.1 - HYPO-OSMOLALITY AND HYPONATREMIA Status: Acute Priority : High Current Visit: Yes (3) Schizophrenia SNOMED Code(s): 74598496 Code(s): F20.9 - SCHIZOPHRENIA, UNSPECIFIED Status: Chronic Priority: Medium Current Visit: No Qualifiers: Schizophrenia type: paranoid schizophrenia Qualified Code(s): F20.0 - Paranoid schizophrenia (4) Depression SNOMED Code(s): 34117232 Code(s): F32.9 - MAJOR DEPRESSIVE DISORDER, SINGLE EPISODE, UNSPECIFIED Status: Acute Priority: High Current Visit: Yes Qualifiers: Depression Type: unspecified Qualified Code(s): F32.9 - Major depressive disorder, single episode, unspecified (5) Anxiety SNOMED Code(s): 71526998 Code(s): F41.9 - ANXIETY DISORDER, UNSPECIFIED Status: Acute Priority: High Current Visit: Yes (6) Hyperlipidemia SNOMED Code(s): 53082834 Code(s): E78.5 - HYPERLIPIDEMIA, UNSPECIFIED Status: Acute Current Visit : Yes (7) Hypothyroid SNOMED Code(s): 99833149 Code(s): E03.9 - HYPOTHYROIDISM, UNSPECIFIED Status: Acute Current Visit : Yes - My Orders Last 24 Hours: My Active Orders 02/10/18 20:08 Urinary Catheter Assessment [RC] ASDIRECTED 02/10/18 21:00 Tamsulosin [Flomax] 0.4 mg PO BIDPC 02/11/18 03:53 CULTURE WOUND [RM] Routine 02/11/18 08:00 Cefepime [Maxipime in D5W 1 GM/50 ML] 1 gm Premix Bag 1 bag IV Q12H 02/11/18 Lunch Fluid Restriction [DIET] - Plan Plan:: As above, transfer to [place] if and when there is no documented improvement after Na is in the normal range.
[2018-02-10] MEDS ORDERED: Sodium Chloride 3% 500 ML IV SCH (16:30)
[2018-02-10] MEDS ORDERED: Cefepime 1 GM in Premix Bag 1 BAG IV SCH (19:00)
[2018-02-11] MEDS: cloZAPine 100 MG Tab PO SCH ×6 (00:58→21:12)
[2018-02-11] MEDS: Docusate Sodium 100 MG Cap PO PRN ×2 (01:02→17:45)
[2018-02-11] MEDS: Donepezil 10 MG Tab PO SCH ×2 (01:02→21:11)
[2018-02-11] MEDS: Tamsulosin 0.4 MG Cap.ER PO SCH ×3 (01:02→17:45)
[2018-02-11] MEDS: Memantine 10 MG Tab PO SCH ×3 (01:03→21:11)
[2018-02-11] MEDS: Sodium Chloride/Potassium Chloride Tab PO SCH ×3 (01:04→21:04)
[2018-02-11] MEDS: Levothyroxine 88 MCG Tab PO SCH (08:20)
[2018-02-11] MEDS: Saccharomyces Boulardii (Probiotic) 250 MG Cap PO SCH (08:20)
[2018-02-11] MEDS: Atenolol 50 MG Tab PO SCH (08:21)
[2018-02-11] MEDS: Pantoprazole 40 MG Tab.CR PO SCH (08:21)
[2018-02-11] MEDS: Cefepime 1 GM in Premix Bag 1 BAG IV SCH ×2 (08:21→21:03)
[2018-02-11] MEDS: Iron Polysaccharides Complex 150 MG Cap PO SCH (10:55)
[2018-02-11] MEDS: LORazepam 0.5 MG Tab PO SCH ×2 (14:24→21:11)
--- NOTE | 2018-02-11 15:51 | PCM.PN ---
- General Info Date of Service: 02/11/18 Admission Dx/Problem (Free Text): Admission Diagnosis/Problem Admission Diagnosis/Problem Hyponatremia Subjective Update: In to see Claudia. She is very agitated and states "I want water". I explained she is on a fluid restriction diet to help raise her sodium. She is not happy about this and continues to state "I want water". This is the only phrase she will say while I'm in there. When I tell her she will get water with dinner, she then wants to know exactly what time and what time it is now. I answer her questions. I ask her if she has any other complaints besides wanting water and she states "I'm thirsty". After some questioning I am able to get from her that she is feeling short of breath. On exam she does have wheezing. I will put in a breathing treatment and try Lasix, as it seems this is related to fluid retention. No other concerns from nursing. Placement pending for psychiatry at [facility] in [place] pending repeat sodium level. We are currently doing 1500L fluid restriction, Thermotabs and Hypertonic IVF. Functional Status: Reports: Pain Controlled, Tolerating Diet, Ambulating (with assistance), Urinating - Review of Systems General: Reports: No Symptoms. Denies: Fever, Chills HEENT: Reports: No Symptoms Pulmonary: Reports: Shortness of Breath, Wheezing. Denies: Cough Cardiovascular: Reports: No Symptoms. Denies: Chest Pain Gastrointestinal: Reports: No Symptoms. Denies: Abdominal Pain, Diarrhea, Nausea, Vomiting Genitourinary: Reports: No Symptoms. Denies: Dysuria, Frequency, Burning, Pain , Urgency Musculoskeletal: Reports: No Symptoms Skin: Reports: No Symptoms Neurological: Reports: No Symptoms Psychiatric: Reports: Mood Lability, Agitation - Patient Data Vitals - Most Recent: Last Vital Signs Temp 97.9 F 02/11/18 12:16 Pulse 88 02/11/18 12:17 Resp 22 H 02/11/18 12:16 BP 166/90 H 02/11/18 12:19 Pulse Ox 95 02/11/18 12:17 Weight - Most Recent: 187 lb 6.4 oz I&O - Last 24 Hours: Intake & Output 02/11/18 02/11/18 02/11/18 06:59 14:59 22:59 Intake Total 647 720 Output Total 1050 600 Balance -403 120 Lab Results Last 24 Hours: Laboratory Results - last 24 hr 02/10/18 02/11/18 02/11/18 Range/Units 15:40 06:18 06:18 WBC 10.60 H (3.98-10.04) K/mm3 RBC 3.61 L (3.98-5.22) M/mm3 Hgb 9.6 L (11.2-15.7) gm/L Hct 29.9 L (34.1-44.9) % MCV 82.8 (79.4-94.8) fl MCH 26.6 (25.6-32.2) pg MCHC 32.1 L (32.2-35.5) g/dl RDW Std Deviation 48.2 H (36.4-46.3) fL Plt Count 366 (182-369) K/mm3 MPV 8.4 L (9.4-12.3) fl Neut % (Auto) 76.3 H (34.0-71.1) % Lymph % (Auto) 10.1 L (19.3-51.7) % Holmes % (Auto) 9.1 (4.7-12.5) % Eos % (Auto) 3.7 (0.7-5.8) Baso % (Auto) 0.3 (0.1-1.2) % Neut # (Auto) 8.10 H (1.56-6.13) K/mm3 Lymph # (Auto) 1.07 L (1.18-3.74) K/mm3 Holmes # (Auto) 0.96 H (0.24-0.36) K/mm3 Eos # (Auto) 0.39 H (0.04-0.36) K/mm3 Baso # (Auto) 0.03 (0.01-0.08) K/mm3 Sodium 124 L 125 L (136-145) mEq/L Potassium 3.8 3.8 (3.5-5.1) mEq/L Chloride 96 L 97 L (98-107) mEq/L Carbon Dioxide 20 L 21 (21-32) mEq/L Anion Gap 11.8 10.8 (5-15) BUN 7 7 (7-18) mg/dL Creatinine 0.7 0.7 (0.55-1.02) mg/dL Est Cr Clr Drug Dosing 74.98 74.98 mL/min Estimated GFR (MDRD) > 60 > 60 (>60) mL/min BUN/Creatinine Ratio 10.0 L 10.0 L (14-18) Glucose 81 73 L (80-115) mg/dL Calcium 7.8 L 8.1 L (8.5-10.1) mg/dL Med Orders - Current: Current Medications Atenolol (Tenormin) 50 mg PO DAILY [facility] Last Admin: 02/11/18 08:21 Dose: 50 mg Clozapine (Clozapine) 150 mg PO BEDTIME [facility] Last Admin: 02/11/18 00:58 Dose: 150 mg Clozapine (Clozapine) 200 mg PO TID [facility] Last Admin: 02/11/18 14:24 Dose: 200 mg Docusate Sodium (Colace) 100 mg PO BID PRN PRN Reason: Constipation Last Admin: 02/11/18 01:02 Dose: 100 mg Donepezil HCl (Aricept) 10 mg PO BEDTIME [facility] Last Admin: 02/11/18 01:02 Dose: 10 mg Sodium Chloride (Sodium Chloride 3%) 500 mls @ 7 mls/hr IV ASDIRECTED [facility] Last Admin: 02/10/18 16:39 Dose: 4 mls/hr Cefepime HCl 1 gm/ Premix 50 mls @ 100 mls/hr IV Q12H [facility] Last Admin: 02/11/18 08:21 Dose: 100 mls/hr Ibuprofen (Motrin) 200 mg PO Q6H PRN PRN Reason: Pain Levothyroxine Sodium (Synthroid) 88 mcg PO DAILY [facility] Last Admin: 02/11/18 08:20 Dose: 88 mcg Lorazepam (Ativan) 2 mg IVPUSH Q4H PRN PRN Reason: Seizures Lorazepam (Ativan) 0.5 mg PO TID [facility] Last Admin: 02/11/18 14:24 Dose: 0.5 mg Memantine (Namenda) 5 mg PO BID [facility] Last Admin: 02/11/18 08:20 Dose: 5 mg Oral Electrolytes (Thermotabs) 3 each PO BID [facility] Last Admin: 02/11/18 08:20 Dose: 3 each Pantoprazole Sodium (Protonix) 40 mg PO DAILY [facility] Last Admin: 02/11/18 08:21 Dose: 40 mg Polysaccharide Iron Complex (Ferrex 150) 150 mg PO WITHLUNCH [facility] Last Admin: 02/11/18 10:55 Dose: 150 mg Saccharomyces Boulardii (Florastor) 250 mg PO DAILY [facility] Last Admin: 02/11/18 08:20 Dose: 250 mg Tamsulosin HCl (Flomax) 0.4 mg PO BIDPC [facility] Last Admin: 02/11/18 08:21 Dose: 0.4 mg Discontinued Medications Al Hydroxide/Mg Hydroxide (Mag-Al Plus) 30 ml PO STAT ONE Stop: 02/08/18 16:41 Last Admin: 02/08/18 17:12 Dose: Not Given Sodium Chloride (Normal Saline) 1,000 mls @ 150 mls/hr IV ASDIRECTED [facility] Last Admin: 02/09/18 15:03 Dose: 150 mls/hr Sodium Chloride (Normal Saline) 1,000 mls @ 999 mls/hr IV ONETIME ONE Stop: 02/07/18 11:28 Last Admin: 02/07/18 10:43 Dose: 999 mls/hr Magnesium Sulfate 4 gm/ Premix 100 mls @ 25 mls/hr IV ONETIME ONE Stop: 02/09/18 15:16 Last Admin: 02/09/18 17:14 Dose: 25 mls/hr Cefepime HCl 1 gm/ Premix 50 mls @ 100 mls/hr IV Q8H [facility] Last Admin: 02/10/18 20:02 Dose: 100 mls/hr Lorazepam (Ativan) 0.5 mg PO TID PRN PRN Reason: Pain Last Admin: 02/07/18 12:08 Dose: 0.5 mg Lorazepam (Ativan) 5 mg IVPUSH ONETIME ONE Stop: 02/10/18 13:40 Last Admin: 02/10/18 14:38 Dose: 5 mg Olanzapine (Zyprexa) 2.5 mg IM ONETIME ONE Stop: 02/10/18 14:01 Last Admin: 02/10/18 14:38 Dose: 2.5 mg Oral Electrolytes (Thermotabs) 2 each PO BID [facility] Oral Electrolytes (Thermotabs) 1 each PO BID [facility] Last Admin: 02/07/18 09:44 Dose: 1 each Oral Electrolytes (Thermotabs) 2 each PO BID [facility] Last Admin: 02/09/18 08:44 Dose: 2 each Oral Electrolytes (Thermotabs) 1 each PO ONETIME ONE Stop: 02/07/18 10:46 Last Admin: 02/07/18 10:47 Dose: 1 each - Exam Quality Assessment: DVT Prophylaxis. No: Supplemental Oxygen General: Alert, Oriented, No Acute Distress. No: Cooperative HEENT: Pupils Equal, Pupils Reactive, EOMI, Mucous Membr. Moist/[place] Neck: Supple Lungs: Normal Respiratory Effort, Wheezing Cardiovascular: Regular Rate, Regular Rhythm GI/Abdominal Exam: Normal Bowel Sounds, Soft, Non-Tender, No Organomegaly, No Distention, No Abnormal Bruit, No Mass, Pelvis Stable (Female) Exam: Deferred Back Exam: Normal Inspection, Full Range of Motion Extremities: Normal Inspection, Normal Range of Motion, Non-Tender, No Pedal Edema, Normal Capillary Refill Peripheral Pulses: 2+: Posterior Tibial (L), Posterior Tibial (R), Dorsalis Pedis (L), Dorsalis Pedis (R) Skin: Warm, Dry, Intact, Other (multiple skin lesions Located on right upper face (size of quarter), right lower ear (size of dime), under breasts and in groin region)) Wound/Incisions: Healing Well, Other (multiple skin lesions Located on right upper face (size of quarter), right lower ear (size of dime), under breasts and in groin region)) Neurological: No New Focal Deficit Psy/Mental Status: Alert, Labile Mood, Agitated - Problem List & Annotations (1) Inverse psoriasis SNOMED Code(s): 16315810 Code(s): L40.8 - OTHER PSORIASIS Status: Acute Priority: High Current Visit: Yes (2) Fall at home SNOMED Code(s): 20911168 Code(s): W19.XXXA - UNSPECIFIED FALL, INITIAL ENCOUNTER; Y92.009 - UNSP PLACE IN UNSP NON-INSTITUT (PRIVATE) RESIDENCE PLACE Status: Acute Priority: High Current Visit: Yes (3) Hyponatremia SNOMED Code(s): 62993947 Code(s): E87.1 - HYPO-OSMOLALITY AND HYPONATREMIA Status: Acute Priority : High Current Visit: Yes (4) Altered mental status SNOMED Code(s): 136200649 Code(s): R41.82 - ALTERED MENTAL STATUS, UNSPECIFIED Status: Acute Priority: High Current Visit: Yes Qualifiers: Altered mental status type: delirium Qualified Code(s): R41.0 - Disorientation, unspecified - Problem List Review Problem List Initiated/Reviewed/Updated: Yes - My Orders Last 24 Hours: My Active Orders 02/11/18 15:00 LORazepam [Ativan] 0.5 mg PO TID - Plan Plan:: I/P: Acute: AMS 2/2 Manic Episode * Risk Factor: Pt has h/o Schizophrenia w/ Bipolar, has h/o manic episodes that "cycle" * Manic episode started day before ED arrival per [facility] nurse; unsure of when last episode was (just started [facility] in December) * Pt is currently talking about herself in the third person, having conversations with herself and is unable to carry conversation/answer questions appropriately * Pt in past has been triggered by change, [facility] nurse thinks scheduled new appointment with oncologist Dr. Hess at [facility] for injectafor triggered anxiety ; pt did not go to appointment * Per [facility] nurse, pt also missed 2 doses of Clozapine and Ativan on Saturday; unsure as to why * Consult to Telepsych Dr. Castro for evaluation--> refused by pt * CM/SW for possible SNF placement * Per [facility] nurse, Maria Ines from [facility] will be trying to visit hospital to see how she is doing and to hopefully give input to D/C plan * Dr. Pritchett contacted by Dr. Cummins. He suggests Haldol and Ativan to allow for lab draw. If sodium improved and she is medically stable he will accept her at [facility] in [place]. Hyponatremia * 128 at presentation to ED * Continues to be 128, has dropped to 125 today * Hypertonic saline IVF * Thermotabs * 1500 Fluid restriction * Pending lab results will consider * Monitor S/P Fall * EMS found the patient on her bedroom floor, not making much sense * Unwitnessed; pt doesn't know why she fell * No acute injuries seen on exam, no symptoms per pt * CT head/brain and cervical spine in ED show nothing acute * Up with assistance Multiple skin lesions d/t Inverse Psoriasis * Located on right upper face (size of quarter), right lower ear (size of dime) , under breasts and in groin region * Talked with [facility] nurse, Juanito, who states it has actually improved * H/o blistering and "weeping with pus"--> now dry and scaly * Saw payroll tax specialist Dr. Medina on 01/30 and was diagnosed with Inverse Psorasis per [facility] nurse * Put pt on regimen of Lotramine BID and Lidex BID x 1 month * Dr. Medina then D/C'd Lotramine and plan was to continue Lidex BID 2 weeks on/2 weeks off * At this time, she should not be treated as this is her "week off" from medications * Daily Shower * Keep wounds dry Chronic: Schizophrenia s/p bilateral partial frontal lobotomy Anxiety/Depression HTN HLD GERD Seizures Hypothyroid Anemia Psoriasis Plan: Admitted to Observation, 02/07/18 --> Upgrade to full admit with hyponatremia and confusion She remains stable Other orders as indicated above Routine AM labs Regular diet, 1500 Fluid restriction CM/SW for discharge planning DVT Prophylaxis: SCDs GI Prophylaxis: Protonix Code Status: Full Code; PCP: Neetu Bryson Placement pending for psychiatry at [facility] in [place] pending repeat sodium level.
[2018-02-11] MEDS ORDERED: Albuterol/Ipratropium 3.0-0.5 MG/3 ML Neb Soln NEB PRN (16:01)
[2018-02-11] MEDS ORDERED: Furosemide 20 MG/2 ML VIAL IVPUSH ONE (16:30)
[2018-02-11] MEDS: Latanoprost 0.005% Ophth Soln 2.5 ML Bottle EYEBOTH SCH (21:03)
[2018-02-11] MEDS: Polyethylene Glycol 3350 Powder 17 GM Packet PO PRN (21:03)
--- NOTE | 2018-02-12 08:31 | PCM.PN ---
- General Info Date of Service: 02/12/18 Admission Dx/Problem (Free Text): Admission Diagnosis/Problem Admission Diagnosis/Problem Hyponatremia Subjective Update: In to see Claudia. She is still agitated today regarding her fluid restriction. I explained to her that her labs have improved and eating will help. She also refuses to take a shower, but it was explained that is necessary with her multiple skin lesions. She has also been refusing to eat d/t anger about fluid restriction. Due to her agitation and lack of compliance with care, we will try a repeat of Zyprexa today before trying to shower. Per nursing, she is also still having some psych episodes today stating that "Claudia is " and she is now "Lb". She is agitated and telling nursing that they are "stabbing her in the back of the head" and that they "Killed Claudia". No other concerns from nursing. She will likely D/C tomorrow pending labs (goal is to have Na > 135, is 132 today). Back home if psychologically sound, if not then transfer to [facility] in [place] as previously planned. Functional Status: Reports: Pain Controlled, Ambulating (with assistance), Urinating. Denies: Tolerating Diet (refuses to eat unless given more water) - Review of Systems General: Reports: No Symptoms. Denies: Fever, Chills HEENT: Reports: No Symptoms Pulmonary: Reports: Shortness of Breath. Denies: Cough, Wheezing Cardiovascular: Reports: No Symptoms. Denies: Chest Pain Gastrointestinal: Reports: No Symptoms. Denies: Abdominal Pain, Diarrhea, Nausea, Vomiting Genitourinary: Reports: No Symptoms. Denies: Dysuria, Frequency, Burning, Pain , Urgency Musculoskeletal: Reports: No Symptoms Skin: Reports: No Symptoms Neurological: Reports: No Symptoms Psychiatric: Reports: Mood Lability, Agitation - Patient Data Vitals - Most Recent: Last Vital Signs Temp 96.6 F 02/12/18 08:01 Pulse 92 02/12/18 08:01 Resp 16 02/12/18 08:01 BP 159/82 H 02/12/18 08:01 Pulse Ox 92 L 02/12/18 08:01 Weight - Most Recent: 185 lb 3 oz I&O - Last 24 Hours: Intake & Output 02/11/18 02/12/18 02/12/18 22:59 06:59 14:59 Intake Total 2600 574 Output Total 4170 Balance 2600 -0466 Lab Results Last 24 Hours: Laboratory Results - last 24 hr 02/11/18 02/12/18 02/12/18 Range/Units 17:40 07:30 07:30 WBC 6.36 (3.98-10.04) K/mm3 RBC 3.27 L (3.98-5.22) M/mm3 Hgb 8.8 L (11.2-15.7) gm/L Hct 27.0 L (34.1-44.9) % MCV 82.6 (79.4-94.8) fl MCH 26.9 (25.6-32.2) pg MCHC 32.6 (32.2-35.5) g/dl RDW Std Deviation 46.7 H (36.4-46.3) fL Plt Count 344 (182-369) K/mm3 MPV 8.6 L (9.4-12.3) fl Neut % (Auto) 62.5 (34.0-71.1) % Lymph % (Auto) 16.8 L (19.3-51.7) % [place] % (Auto) 14.6 H (4.7-12.5) % Eos % (Auto) 5.2 (0.7-5.8) Baso % (Auto) 0.6 (0.1-1.2) % Neut # (Auto) 3.97 (1.56-6.13) K/mm3 Lymph # (Auto) 1.07 L (1.18-3.74) K/mm3 [place] # (Auto) 0.93 H (0.24-0.36) K/mm3 Eos # (Auto) 0.33 (0.04-0.36) K/mm3 Baso # (Auto) 0.04 (0.01-0.08) K/mm3 Sodium 124 L 132 L (136-145) mEq/L Potassium 3.2 L (3.5-5.1) mEq/L Chloride 100 (98-107) mEq/L Carbon Dioxide 29 (21-32) mEq/L Anion Gap 6.2 (5-15) BUN 5 L (7-18) mg/dL Creatinine 0.7 (0.55-1.02) mg/dL Est Cr Clr Drug Dosing 74.98 mL/min Estimated GFR (MDRD) > 60 (>60) mL/min BUN/Creatinine Ratio 7.1 L (14-18) Glucose 93 (80-115) mg/dL Calcium 8.1 L (8.5-10.1) mg/dL Med Orders - Current: Current Medications Albuterol/Ipratropium (Duoneb 3.0-0.5 Mg/3 Ml) 3 ml NEB QID PRN PRN Reason: Shortness of Breath Atenolol (Tenormin) 50 mg PO DAILY [facility] Last Admin: 02/11/18 08:21 Dose: 50 mg Clozapine (Clozapine) 150 mg PO BEDTIME [facility] Last Admin: 02/11/18 21:05 Dose: 150 mg Clozapine (Clozapine) 200 mg PO TID [facility] Last Admin: 02/11/18 21:12 Dose: 200 mg Docusate Sodium (Colace) 100 mg PO BID PRN PRN Reason: Constipation Last Admin: 02/11/18 17:45 Dose: 100 mg Donepezil HCl (Aricept) 10 mg PO BEDTIME [facility] Last Admin: 02/11/18 21:11 Dose: 10 mg Hydralazine HCl (Apresoline) 10 mg IVPUSH Q4H PRN PRN Reason: Hypertension Sodium Chloride (Sodium Chloride 3%) 500 mls @ 10 mls/hr IV ASDIRECTED [facility] Last Admin: 02/10/18 16:39 Dose: 4 mls/hr Cefepime HCl 1 gm/ Premix 50 mls @ 100 mls/hr IV Q12H [facility] Last Admin: 02/11/18 21:03 Dose: 100 mls/hr Ibuprofen (Motrin) 200 mg PO Q6H PRN PRN Reason: Pain Latanoprost (Xalatan 0.005% Ophth Soln) 0 ml EYEBOTH BEDTIME [facility] Last Admin: 02/11/18 21:03 Dose: 1 drop Levothyroxine Sodium (Synthroid) 88 mcg PO DAILY [facility] Last Admin: 02/11/18 08:20 Dose: 88 mcg Lorazepam (Ativan) 2 mg IVPUSH Q4H PRN PRN Reason: Seizures Lorazepam (Ativan) 0.5 mg PO TID [facility] Last Admin: 02/11/18 21:11 Dose: 0.5 mg Memantine (Namenda) 10 mg PO DAILY [facility] Memantine (Namenda) 5 mg PO BEDTIME [facility] Last Admin: 02/11/18 21:11 Dose: 5 mg Oral Electrolytes (Thermotabs) 3 each PO TID [facility] Last Admin: 02/11/18 21:04 Dose: 3 each Pantoprazole Sodium (Protonix) 40 mg PO DAILY [facility] Last Admin: 02/11/18 08:21 Dose: 40 mg Polyethylene Glycol (Miralax) 17 gm PO BEDTIME PRN PRN Reason: Constipation Last Admin: 02/11/18 21:03 Dose: 17 gm Polysaccharide Iron Complex (Ferrex 150) 150 mg PO WITHLUNCH [facility] Last Admin: 02/11/18 10:55 Dose: 150 mg Saccharomyces Boulardii (Florastor) 250 mg PO DAILY [facility] Last Admin: 02/11/18 08:20 Dose: 250 mg Tamsulosin HCl (Flomax) 0.4 mg PO BIDPC [facility] Last Admin: 02/11/18 17:45 Dose: 0.4 mg Discontinued Medications Al Hydroxide/Mg Hydroxide (Mag-Al Plus) 30 ml PO STAT ONE Stop: 02/08/18 16:41 Last Admin: 02/08/18 17:12 Dose: Not Given Furosemide (Lasix) 20 mg IVPUSH NOW ONE Stop: 02/11/18 16:31 Last Admin: 02/11/18 17:46 Dose: 20 mg Sodium Chloride (Normal Saline) 1,000 mls @ 150 mls/hr IV ASDIRECTED [facility] Last Admin: 02/09/18 15:03 Dose: 150 mls/hr Sodium Chloride (Normal Saline) 1,000 mls @ 999 mls/hr IV ONETIME ONE Stop: 02/07/18 11:28 Last Admin: 02/07/18 10:43 Dose: 999 mls/hr Magnesium Sulfate 4 gm/ Premix 100 mls @ 25 mls/hr IV ONETIME ONE Stop: 02/09/18 15:16 Last Admin: 02/09/18 17:14 Dose: 25 mls/hr Cefepime HCl 1 gm/ Premix 50 mls @ 100 mls/hr IV Q8H [facility] Last Admin: 02/10/18 20:02 Dose: 100 mls/hr Lorazepam (Ativan) 0.5 mg PO TID PRN PRN Reason: Pain Last Admin: 02/07/18 12:08 Dose: 0.5 mg Lorazepam (Ativan) 5 mg IVPUSH ONETIME ONE Stop: 02/10/18 13:40 Last Admin: 02/10/18 14:38 Dose: 5 mg Memantine (Namenda) 5 mg PO BID [facility] Last Admin: 02/11/18 08:20 Dose: 5 mg Olanzapine (Zyprexa) 2.5 mg IM ONETIME ONE Stop: 02/10/18 14:01 Last Admin: 02/10/18 14:38 Dose: 2.5 mg Oral Electrolytes (Thermotabs) 2 each PO BID [facility] Oral Electrolytes (Thermotabs) 1 each PO BID [facility] Last Admin: 02/07/18 09:44 Dose: 1 each Oral Electrolytes (Thermotabs) 2 each PO BID [facility] Last Admin: 02/09/18 08:44 Dose: 2 each Oral Electrolytes (Thermotabs) 1 each PO ONETIME ONE Stop: 02/07/18 10:46 Last Admin: 02/07/18 10:47 Dose: 1 each Oral Electrolytes (Thermotabs) 3 each PO BID [facility] Last Admin: 02/11/18 08:20 Dose: 3 each - Exam Quality Assessment: DVT Prophylaxis General: Alert, Oriented, No Acute Distress. No: Cooperative (will not eat d/t anger over fluid restriction; refuses to take shower) HEENT: Pupils Equal, Pupils Reactive, EOMI, Mucous Membr. Moist/Menard Neck: Supple Lungs: Clear to Auscultation, Normal Respiratory Effort Cardiovascular: Regular Rate, Regular Rhythm GI/Abdominal Exam: Normal Bowel Sounds, Soft, Non-Tender, No Organomegaly, No Distention, No Abnormal Bruit, No Mass, Pelvis Stable (Female) Exam: Deferred Back Exam: Normal Inspection, Full Range of Motion Extremities: Normal Range of Motion, Non-Tender, No Pedal Edema, Normal Capillary Refill Peripheral Pulses: 2+: Posterior Tibial (L), Posterior Tibial (R), Dorsalis Pedis (L), Dorsalis Pedis (R) Skin: Warm, Dry Wound/Incisions: Healing Well Neurological: No New Focal Deficit, Cranial Nerves Intact (grossly) Psy/Mental Status: Alert, Labile Mood, Agitated - Problem List & Annotations (1) Inverse psoriasis SNOMED Code(s): 65931962 Code(s): L40.8 - OTHER PSORIASIS Status: Acute Priority: High Current Visit: Yes (2) Fall at home SNOMED Code(s): 91862405 Code(s): W19.XXXA - UNSPECIFIED FALL, INITIAL ENCOUNTER; Y92.009 - UNSP PLACE IN [facility] RES[facility] Status: Acute Priority: High Current Visit: Yes (3) Hyponatremia SNOMED Code(s): 89418975 Code(s): E87.1 - HYPO-OSMOLALITY AND HYPONATREMIA Status: Acute Priority : High Current Visit: Yes (4) Altered mental status SNOMED Code(s): 821942310 Code(s): R41.82 - ALTERED MENTAL STATUS, UNSPECIFIED Status: Acute Priority: High Current Visit: Yes Qualifiers: Altered mental status type: delirium Qualified Code(s): R41.0 - Disorientation, unspecified - Problem List Review Problem List Initiated/Reviewed/Updated: Yes - My Orders Last 24 Hours: My Active Orders 02/11/18 15:00 LORazepam [Ativan] 0.5 mg PO TID 02/11/18 16:01 Albuterol/Ipratropium [DuoNeb 3.0-0.5 MG/3 ML] 3 ml NEB QID PRN 02/11/18 20:04 Polyethylene Glycol 3350 [MiraLAX] 17 gm PO BEDTIME PRN 02/11/18 21:00 Latanoprost [Xalatan 0.005% Ophth Soln] 0 ml EYEBOTH BEDTIME Memantine [Namenda] 5 mg PO BEDTIME Sodium Chloride/KCl [Thermotabs] 3 each PO TID 02/12/18 07:44 hydrALAZINE [Apresoline] 10 mg IVPUSH Q4H PRN 02/12/18 09:00 Memantine [Namenda] 10 mg PO DAILY 02/13/18 05:11 BASIC METABOLIC PANEL,BMP [CHEM] AM CBC WITH AUTO DIFF [HEME] AM 02/14/18 05:11 BASIC METABOLIC PANEL,BMP [CHEM] AM CBC WITH AUTO DIFF [HEME] AM 02/15/18 05:11 BASIC METABOLIC PANEL,BMP [CHEM] AM CBC WITH AUTO DIFF [HEME] AM - Plan Plan:: I/P: Acute: AMS 2/2 Manic Episode * Risk Factor: Pt has h/o Schizophrenia w/ Bipolar, has h/o manic episodes that "cycle" * Manic episode started day before ED arrival per [facility] nurse; unsure of when last episode was (just started [facility] in December) * Pt is currently talking about herself in the third person, having conversations with herself and is unable to carry conversation/answer questions appropriately * Pt in past has been triggered by change, [facility] nurse thinks scheduled new appointment with oncologist Dr. Hess at [place] for injectafor triggered anxiety ; pt did not go to appointment * Per [facility] nurse, pt also missed 2 doses of Clozapine and Ativan on Saturday; unsure as to why * Consult to Telepsych Dr. Castro for evaluation--> refused by pt * CM/SW for possible SNF placement * Per [facility] nurse, Maria Ines from [facility] will be trying to visit hospital to see how she is doing and to hopefully give input to D/C plan * Dr. Pritchett contacted by Dr. Cummins. He suggests Haldol and Ativan to allow for lab draw. If sodium improved and she is medically stable he will accept her at [facility] in [place]. Hyponatremia * 128 at presentation to ED--> today is 132 (goal >135) * Hypertonic saline IVF * Thermotabs * 1500 Fluid restriction * Monitor S/P Fall * EMS found the patient on her bedroom floor, not making much sense * Unwitnessed; pt doesn't know why she fell * No acute injuries seen on exam, no symptoms per pt * CT head/brain and cervical spine in ED show nothing acute * Up with assistance Multiple skin lesions d/t Inverse Psoriasis * Located on right upper face (size of quarter), right lower ear (size of dime) , under breasts and in groin region * Talked with [facility] nurse, Juanito, who states it has actually improved * H/o blistering and "weeping with pus"--> now dry and scaly * Saw fibre composite technician Dr. Medina on 01/30 and was diagnosed with Inverse Psorasis per [facility] nurse * Put pt on regimen of Lotramine BID and Lidex BID x 1 month * Dr. Medina then D/C'd Lotramine and plan was to continue Lidex BID 2 weeks on/2 weeks off * At this time, she should not be treated as this is her "week off" from medications * Daily Shower * Keep wounds dry * Cefipime started d/t increased exudates in genital region Chronic: Schizophrenia s/p bilateral partial frontal lobotomy Anxiety/Depression HTN HLD GERD Seizures Hypothyroid Anemia Psoriasis Plan: Admitted to Observation, 02/07/18 --> Upgrade to full admit with hyponatremia and confusion She remains stable Other orders as indicated above Replace electrolytes PRN Routine AM labs Regular diet, 1500 Fluid restriction --> She is currently refusing to eat d/t unhappiness with fluid restriction CM/SW for discharge planning DVT Prophylaxis: Lovenox; refused SCDs GI Prophylaxis: Protonix Code Status: Full Code; PCP: Neetu Bryson Most likely D/C tomorrow. Back home if psychologically sound, if not then transfer to [facility] in [place] as previously planned.
[2018-02-12] MEDS: Cefepime 1 GM in Premix Bag 1 BAG IV SCH ×2 (09:16→20:33)
[2018-02-12] MEDS: hydrALAZINE 20 MG/ML SDV IVPUSH PRN (09:17)
[2018-02-12] MEDS: Pantoprazole 40 MG Tab.CR PO SCH (09:17)
[2018-02-12] MEDS: Atenolol 50 MG Tab PO SCH (09:18)
[2018-02-12] MEDS: LORazepam 0.5 MG Tab PO SCH ×3 (09:18→20:22)
[2018-02-12] MEDS: Levothyroxine 88 MCG Tab PO SCH (09:18)
[2018-02-12] MEDS: Memantine 10 MG Tab PO SCH ×2 (09:18→20:22)
[2018-02-12] MEDS: Saccharomyces Boulardii (Probiotic) 250 MG Cap PO SCH (09:18)
[2018-02-12] MEDS: Sodium Chloride/Potassium Chloride Tab PO SCH ×3 (09:18→20:23)
[2018-02-12] MEDS: Tamsulosin 0.4 MG Cap.ER PO SCH ×2 (09:18→18:57)
[2018-02-12] MEDS: cloZAPine 100 MG Tab PO SCH ×4 (09:19→20:23)
[2018-02-12] MEDS ORDERED: Ondansetron 4 MG/2 ML SDV IVPUSH PRN (10:23)
[2018-02-12] MEDS: Iron Polysaccharides Complex 150 MG Cap PO SCH (10:55)
[2018-02-12] MEDS: Potassium Chloride 20 MEQ Tab.ER PO SCH ×2 (10:55→14:11)
[2018-02-12] MEDS ORDERED: WATER FOR INJECTION IM ONE (13:39)
[2018-02-12] MEDS ORDERED: OLANZAPINE IM ONE (13:39)
[2018-02-12] MEDS ORDERED: STERILE IM ONE (13:39)
[2018-02-12] MEDS ORDERED: LORazepam 2 MG/ML SDV IVPUSH STA (13:40)
[2018-02-12] MEDS ORDERED: OLANZapine 10 MG Vial IM ONE ×2 (13:40)
[2018-02-12] MEDS: Enoxaparin 30 MG/0.3 ML Syringe SUBCUT SCH (14:11)
[2018-02-12] MEDS: Docusate Sodium 100 MG Cap PO PRN (20:23)
[2018-02-12] MEDS: Polyethylene Glycol 3350 Powder 17 GM Packet PO PRN (20:23)
[2018-02-12] MEDS: Donepezil 10 MG Tab PO SCH (20:23)
[2018-02-12] MEDS: Latanoprost 0.005% Ophth Soln 2.5 ML Bottle EYEBOTH SCH (22:12)
[2018-02-12] MEDS ORDERED: Sodium Chloride 3% 500 ML IV SCH (22:30)
[2018-02-13] MEDS: hydrALAZINE 20 MG/ML SDV IVPUSH PRN (04:11)
[2018-02-13] MEDS ORDERED: Sodium Chloride 3% 500 ML IV SCH (09:45)
[2018-02-13] MEDS ORDERED: WATER FOR INJECTION IM ONE (10:22)
[2018-02-13] MEDS ORDERED: STERILE IM ONE (10:22)
[2018-02-13] MEDS ORDERED: OLANZAPINE IM ONE (10:22)
[2018-02-13] MEDS ORDERED: LORazepam 2 MG/ML SDV IVPUSH ONE ×2 (10:26)
[2018-02-13] MEDS ORDERED: OLANZapine 10 MG Vial IM ONE (10:45)
[2018-02-13] MEDS: Cefepime 1 GM in Premix Bag 1 BAG IV SCH ×2 (12:38→21:05)
[2018-02-13] MEDS: Enoxaparin 30 MG/0.3 ML Syringe SUBCUT SCH (12:42)
[2018-02-13] MEDS: Atenolol 50 MG Tab PO SCH (12:44)
[2018-02-13] MEDS: Levothyroxine 88 MCG Tab PO SCH (12:44)
[2018-02-13] MEDS: Memantine 10 MG Tab PO SCH ×2 (12:44→21:06)
[2018-02-13] MEDS: Sodium Chloride/Potassium Chloride Tab PO SCH ×2 (12:44→16:23)
[2018-02-13] MEDS: cloZAPine 100 MG Tab PO SCH ×4 (12:44→21:07)
[2018-02-13] MEDS: Pantoprazole 40 MG Tab.CR PO SCH (12:48)
[2018-02-13] MEDS: Tamsulosin 0.4 MG Cap.ER PO SCH ×2 (12:49→17:48)
[2018-02-13] MEDS: Saccharomyces Boulardii (Probiotic) 250 MG Cap PO SCH (12:50)
[2018-02-13] MEDS: LORazepam 0.5 MG Tab PO SCH ×4 (12:51→21:06)
[2018-02-13] MEDS ORDERED: Bisacodyl 5 MG Tab PO PRN (15:33)
[2018-02-13] MEDS ORDERED: Bisacodyl 10 MG Supp RECTAL PRN (16:12)
[2018-02-13] MEDS: Iron Polysaccharides Complex 150 MG Cap PO SCH (16:23)
--- NOTE | 2018-02-13 16:50 | PCM.PN ---
- General Info Date of Service: 02/13/18 Admission Dx/Problem (Free Text): Admission Diagnosis/Problem Admission Diagnosis/Problem Hyponatremia Subjective Update: In to see Claudia. She is laying in bed while nursing is cleaning her wounds. No new complaints today. Her right IV has infiltrated and has created some swelling and small water blister on the right forearm, so we will be removing the IV and starting one on the left arm. Will try Crilex on the right arm to help with the blister and swelling. She seems to be more swollen in general today, so we will D/C the hypertonic solution as her sodium has not been improving with it any way. She is also constipated, will give suppository PRN. Nursing states she is still having multiple personalities, such as "Lb", and has been making very strange comments throughout the day. At this point, she will likely need to be transferred to [facility] as she is not psychologically stable. We have been trying to treat her hyponatremia, but this seems to be her baseline as it has been extremely difficult to raise to a normal level while here. According to previous labs, hyponatremia also seems to be her baseline, with the lowest reading at 119 and highest 137. Therefore, her psychological state does not seem to be tied to her sodium level as this is a chronic condition. Will most likely transfer tomorrow after labs are drawn. Functional Status: Reports: Pain Controlled, Ambulating (with assitance), Urinating (minimal; will use bladder scan and use straight catheter PRN), Incentive Spirometry. Denies: Tolerating Diet (refusing to eat until given more water) - Review of Systems General: Reports: No Symptoms. Denies: Fever, Chills HEENT: Reports: No Symptoms Pulmonary: Reports: Shortness of Breath. Denies: Cough Cardiovascular: Reports: Edema (no pitting edema, but more swelling present in extremities). Denies: Chest Pain Gastrointestinal: Reports: Constipation (not sure of last BM). Denies: Abdominal Pain, Diarrhea, Nausea, Vomiting Genitourinary: Reports: Retention. Denies: Dysuria, Frequency, Burning, Pain Musculoskeletal: Reports: No Symptoms Skin: Reports: No Symptoms Neurological: Reports: No Symptoms Psychiatric: Reports: Mood Lability, Agitation - Patient Data Vitals - Most Recent: Last Vital Signs Temp 97.3 F 02/13/18 03:34 Pulse 81 02/13/18 12:44 Resp 20 02/13/18 03:34 BP 146/79 H 02/13/18 12:44 Pulse Ox 93 L 02/13/18 03:34 Weight - Most Recent: 185 lb 8 oz I&O - Last 24 Hours: Intake & Output 02/13/18 02/13/18 02/13/18 06:59 14:59 22:59 Intake Total 460 300 Output Total 1500 600 Balance -1040 -300 Lab Results Last 24 Hours: Laboratory Results - last 24 hr 02/13/18 02/13/18 Range/Units 06:05 06:05 WBC 8.03 (3.98-10.04) K/mm3 RBC 3.54 L (3.98-5.22) M/mm3 Hgb 9.7 L (11.2-15.7) gm/L Hct 29.3 L (34.1-44.9) % MCV 82.8 (79.4-94.8) fl MCH 27.4 (25.6-32.2) pg MCHC 33.1 (32.2-35.5) g/dl RDW Std Deviation 49.2 H (36.4-46.3) fL Plt Count 345 (182-369) K/mm3 MPV 9.5 (9.4-12.3) fl Neut % (Auto) 66.1 (34.0-71.1) % Lymph % (Auto) 16.1 L (19.3-51.7) % Mason % (Auto) 12.6 H (4.7-12.5) % Eos % (Auto) 4.5 (0.7-5.8) Baso % (Auto) 0.2 (0.1-1.2) % Neut # (Auto) 5.31 (1.56-6.13) K/mm3 Lymph # (Auto) 1.29 (1.18-3.74) K/mm3 Mason # (Auto) 1.01 H (0.24-0.36) K/mm3 Eos # (Auto) 0.36 (0.04-0.36) K/mm3 Baso # (Auto) 0.02 (0.01-0.08) K/mm3 Manual Slide Review Abnormal smear Sodium 131 L (136-145) mEq/L Potassium 4.2 (3.5-5.1) mEq/L Chloride 97 L (98-107) mEq/L Carbon Dioxide 28 (21-32) mEq/L Anion Gap 10.2 (5-15) BUN 5 L (7-18) mg/dL Creatinine 0.6 (0.55-1.02) mg/dL Est Cr Clr Drug Dosing 87.48 mL/min Estimated GFR (MDRD) > 60 (>60) mL/min BUN/Creatinine Ratio 8.3 L (14-18) Glucose 107 (80-115) mg/dL Calcium 8.5 (8.5-10.1) mg/dL Navdeep Results Last 24 Hours: Microbiology 02/11/18 03:53 Wound Culture - Final Groin, Unspecified Med Orders - Current: Current Medications Albuterol/Ipratropium (Duoneb 3.0-0.5 Mg/3 Ml) 3 ml NEB QID PRN PRN Reason: Shortness of Breath Atenolol (Tenormin) 50 mg PO DAILY [facility] Last Admin: 02/13/18 12:44 Dose: 50 mg Bisacodyl (Dulcolax) 5 mg PO DAILY PRN PRN Reason: Constipation Last Admin: 02/13/18 16:23 Dose: 5 mg Bisacodyl (Dulcolax) 10 mg RECTAL DAILY PRN PRN Reason: Constipation Clozapine (Clozapine) 150 mg PO BEDTIME [facility] Last Admin: 02/12/18 20:22 Dose: 150 mg Clozapine (Clozapine) 200 mg PO TID [facility] Last Admin: 02/13/18 16:22 Dose: 200 mg Docusate Sodium (Colace) 100 mg PO BID PRN PRN Reason: Constipation Last Admin: 02/12/18 20:23 Dose: 100 mg Donepezil HCl (Aricept) 10 mg PO BEDTIME [facility] Last Admin: 02/12/18 20:23 Dose: 10 mg Enoxaparin Sodium (Lovenox) 30 mg SUBCUT DAILY [facility] Last Admin: 02/13/18 12:42 Dose: 30 mg Hydralazine HCl (Apresoline) 10 mg IVPUSH Q4H PRN PRN Reason: Hypertension Last Admin: 02/13/18 04:11 Dose: 10 mg Cefepime HCl 1 gm/ Premix 50 mls @ 100 mls/hr IV Q12H [facility] Last Admin: 02/13/18 12:38 Dose: 100 mls/hr Ibuprofen (Motrin) 200 mg PO Q6H PRN PRN Reason: Pain Latanoprost (Xalatan 0.005% Ophth Soln) 0 ml EYEBOTH BEDTIME [facility] Last Admin: 02/12/18 22:12 Dose: Not Given Levothyroxine Sodium (Synthroid) 88 mcg PO DAILY [facility] Last Admin: 02/13/18 12:44 Dose: 88 mcg Lorazepam (Ativan) 0.5 mg PO TID [facility] Last Admin: 02/13/18 16:23 Dose: Not Given Memantine (Namenda) 10 mg PO DAILY [facility] Last Admin: 02/13/18 12:44 Dose: 10 mg Memantine (Namenda) 5 mg PO BEDTIME [facility] Last Admin: 02/12/18 20:22 Dose: 5 mg Ondansetron HCl (Zofran) 4 mg IVPUSH Q4H PRN PRN Reason: Nausea/Vomiting Last Admin: 02/12/18 10:34 Dose: 4 mg Oral Electrolytes (Thermotabs) 3 each PO TID [facility] Last Admin: 02/13/18 16:23 Dose: 3 each Pantoprazole Sodium (Protonix) 40 mg PO DAILY [facility] Last Admin: 02/13/18 12:48 Dose: 40 mg Polyethylene Glycol (Miralax) 17 gm PO BEDTIME PRN PRN Reason: Constipation Last Admin: 02/12/18 20:23 Dose: 17 gm Polysaccharide Iron Complex (Ferrex 150) 150 mg PO WITHLUNCH [facility] Last Admin: 02/13/18 16:23 Dose: 150 mg Saccharomyces Boulardii (Florastor) 250 mg PO DAILY [facility] Last Admin: 02/13/18 12:50 Dose: 250 mg Tamsulosin HCl (Flomax) 0.4 mg PO BIDPC [facility] Last Admin: 02/13/18 12:49 Dose: 0.4 mg Discontinued Medications Al Hydroxide/Mg Hydroxide (Mag-Al Plus) 30 ml PO STAT ONE Stop: 02/08/18 16:41 Last Admin: 02/08/18 17:12 Dose: Not Given Furosemide (Lasix) 20 mg IVPUSH NOW ONE Stop: 02/11/18 16:31 Last Admin: 02/11/18 17:46 Dose: 20 mg Sodium Chloride (Normal Saline) 1,000 mls @ 150 mls/hr IV ASDIRECTED [facility] Last Admin: 02/09/18 15:03 Dose: 150 mls/hr Sodium Chloride (Normal Saline) 1,000 mls @ 999 mls/hr IV ONETIME ONE Stop: 02/07/18 11:28 Last Admin: 02/07/18 10:43 Dose: 999 mls/hr Magnesium Sulfate 4 gm/ Premix 100 mls @ 25 mls/hr IV ONETIME ONE Stop: 02/09/18 15:16 Last Admin: 02/09/18 17:14 Dose: 25 mls/hr Sodium Chloride (Sodium Chloride 3%) 500 mls @ 10 mls/hr IV ASDIRECTED [facility] Last Admin: 02/10/18 16:39 Dose: 4 mls/hr Cefepime HCl 1 gm/ Premix 50 mls @ 100 mls/hr IV Q8H [facility] Last Admin: 02/10/18 20:02 Dose: 100 mls/hr Olanzapine 1.5 mg/ Sterile (Water) 2.1 mls @ 999 mls/hr IM ONETIME ONE Stop: 02/12/18 13:40 Last Admin: 02/12/18 13:43 Dose: Not Given Sodium Chloride (Sodium Chloride 3%) 500 [facility]ls [facility] Admin: 02/12/18 23:01 Dose: 10 mls/hr Sodium Chloride (Sodium Chloride 3%) 500 mls [facility] Stop: 02/13/18 18:00 Last Admin: 02/13/18 13:23 Dose: 14 mls/hr Lorazepam (Ativan) 0.5 mg PO TID PRN PRN Reason: Pain Last Admin: 02/07/18 12:08 Dose: 0.5 mg Lorazepam (Ativan) 2 mg IVPUSH Q4H PRN PRN Reason: Seizures Lorazepam (Ativan) 5 mg IVPUSH ONETIME ONE Stop: 02/10/18 13:40 Last Admin: 02/10/18 14:38 Dose: 5 mg Lorazepam (Ativan) 1 mg IVPUSH ONETIME ONE Stop: 02/13/18 10:27 Last Admin: 02/13/18 13:56 Dose: Not Given Lorazepam (Ativan) 5 mg IVPUSH ONETIME ONE Stop: 02/13/18 10:27 Last Admin: 02/13/18 11:08 Dose: 5 mg Memantine (Namenda) 5 mg PO BID [facility] Last Admin: 02/11/18 08:20 Dose: 5 mg Olanzapine (Zyprexa) 2.5 mg IM ONETIME ONE Stop: 02/10/18 14:01 Last Admin: 02/10/18 14:38 Dose: 2.5 mg Olanzapine (Zyprexa) 1.5 mg IM ONETIME ONE Stop: 02/12/18 13:41 Last Admin: 02/12/18 14:30 Dose: Not Given Olanzapine (Zyprexa) 2.5 mg IM ONETIME ONE Stop: 02/12/18 13:41 Last Admin: 02/12/18 14:12 Dose: 2.5 mg Olanzapine (Zyprexa) 2.5 mg IM ONETIME ONE Stop: 02/13/18 10:46 Last Admin: 02/13/18 11:07 Dose: 2.5 mg Oral Electrolytes (Thermotabs) 2 each PO BID [facility] Oral Electrolytes (Thermotabs) 1 each PO BID [facility] Last Admin: 02/07/18 09:44 Dose: 1 each Oral Electrolytes (Thermotabs) 2 each PO BID [facility] Last Admin: 02/09/18 08:44 Dose: 2 each Oral Electrolytes (Thermotabs) 1 each PO ONETIME ONE Stop: 02/07/18 10:46 Last Admin: 02/07/18 10:47 Dose: 1 each Oral Electrolytes (Thermotabs) 3 each PO BID [facility] Last Admin: 02/11/18 08:20 Dose: 3 each Potassium Chloride (Klor-Con M20) 40 meq PO Q4H [facility] Stop: 02/12/18 14:01 Last Admin: 02/12/18 14:11 Dose: 40 meq - Exam Quality Assessment: DVT Prophylaxis General: Alert, Oriented, Cooperative (intermittently), No Acute Distress HEENT: Pupils Equal, Pupils Reactive, EOMI, Mucous Membr. Moist/Sena Neck: Supple Lungs: Clear to Auscultation, Normal Respiratory Effort Cardiovascular: Regular Rate, Regular Rhythm GI/Abdominal Exam: Normal Bowel Sounds, Soft, Non-Tender, No Organomegaly, No Abnormal Bruit, No Mass, Pelvis Stable, Distended (Female) Exam: Deferred Back Exam: Normal Inspection, Full Range of Motion Extremities: Normal Inspection, Normal Range of Motion, Non-Tender, Normal Capillary Refill, Pedal Edema Peripheral Pulses: 2+: Posterior Tibial (L), Posterior Tibial (R), Dorsalis Pedis (L), Dorsalis Pedis (R) Skin: Warm, Dry, Intact Wound/Incisions: Healing Well Neurological: No New Focal Deficit Psy/Mental Status: Alert, Labile Mood (multiple personalities today). No: Normal Affect, Normal Mood - Problem List & Annotations (1) Inverse psoriasis SNOMED Code(s): 52271959 Code(s): L40.8 - OTHER PSORIASIS Status: Acute Priority: High Current Visit: Yes (2) Fall at home SNOMED Code(s): 15142511 Code(s): W19.XXXA - UNSPECIFIED FALL, INITIAL ENCOUNTER; Y92.009 - UNSP PLACE IN UNSP NON-INSTITUT (PRIVATE) RESIDENCE PLACE Status: Acute Priority: High Current Visit: Yes (3) Hyponatremia SNOMED Code(s): 22157072 Code(s): E87.1 - HYPO-OSMOLALITY AND HYPONATREMIA Status: Acute Priority : High Current Visit: Yes (4) Altered mental status SNOMED Code(s): 638268854 Code(s): R41.82 - ALTERED MENTAL STATUS, UNSPECIFIED Status: Acute Priority: High Current Visit: Yes Qualifiers: Altered mental status type: delirium Qualified Code(s): R41.0 - Disorientation, unspecified - Problem List Review Problem List Initiated/Reviewed/Updated: Yes - My Orders Last 24 Hours: My Active Orders 02/13/18 16:12 Bisacodyl [Dulcolax] 10 mg RECTAL DAILY PRN 02/14/18 05:11 BASIC METABOLIC PANEL,BMP [CHEM] AM CBC WITH AUTO DIFF [HEME] AM 02/15/18 05:11 BASIC METABOLIC PANEL,BMP [CHEM] AM CBC WITH AUTO DIFF [HEME] AM - Plan Plan:: I/P: Acute: AMS 2/2 Manic Episode * Risk Factor: Pt has h/o Schizophrenia w/ Bipolar, has h/o manic episodes that "cycle" * Manic episode started day before ED arrival per [facility] nurse; unsure of when last episode was (just started [facility] in December) * Pt is currently talking about herself in the third person, having conversations with herself and is unable to carry conversation/answer questions appropriately * Pt in past has been triggered by change, BLANE villalobos thinks scheduled new appointment with oncologist Dr. Hess at [place] for injectafor triggered anxiety ; pt did not go to appointment * Per [facility] nurse, pt also missed 2 doses of Clozapine and Ativan on Saturday; unsure as to why * Consult to Telepsych Dr. Castro for evaluation--> refused by pt * CM/SW for possible SNF placement * Per [facility] nurse, Maria Ines from [facility] will be trying to visit hospital to see how she is doing and to hopefully give input to D/C plan * Dr. Pritchett contacted by Dr. Cummins. He suggests Haldol and Ativan to allow for lab draw. If sodium improved and she is medically stable he will accept her at [facility] in [place]. S/P Fall * EMS found the patient on her bedroom floor, not making much sense * Unwitnessed; pt doesn't know why she fell * No acute injuries seen on exam, no symptoms per pt * CT head/brain and cervical spine in ED show nothing acute * Up with assistance Multiple skin lesions d/t Inverse Psoriasis * Located on right upper face (size of quarter), right lower ear (size of dime) , under breasts and in groin region * Talked with Juanito Douglas, who states it has actually improved * H/o blistering and "weeping with pus"--> now dry and scaly * Saw insurance follow up representative Dr. Medina on 01/30 and was diagnosed with Inverse Psorasis per [facility] nurse * Put pt on regimen of Lotramine BID and Lidex BID x 1 month * Dr. Medina then D/C'd Lotramine and plan was to continue Lidex BID 2 weeks on/2 weeks off * At this time, she should not be treated as this is her "week off" from medications * Boil on buttucks * Daily Shower * Keep wounds dry * Cefipime started d/t increased exudates in genital region Chronic: Schizophrenia s/p bilateral partial frontal lobotomy Anxiety/Depression HTN HLD GERD Seizures Hypothyroid Anemia Psoriasis Hyponatremia, chronic * 128 at presentation to ED--> 132--> 131 * We have been trying to treat her hyponatremia, but this seems to be her baseline as it has been extremely difficult to raise to a normal level while here. According to previous labs, hyponatremia is chronic since 2014, with only 5 times in the last 3 years has it been WNL. * Hypertonic saline IVF--> D/C today d/t swelling * Thermotabs--> D/C * 1500 Fluid restriction --> D/C * Monitor Plan: Admitted to Observation, 02/07/18 --> Upgrade to full admit with hyponatremia and confusion She remains stable Other orders as indicated above Replace electrolytes PRN Routine AM labs Regular diet, 1500 Fluid restriction --> She is currently refusing to eat d/t unhappiness with fluid restriction CM/SW for discharge planning DVT Prophylaxis: Lovenox; refused SCDs GI Prophylaxis: Protonix Code Status: Full Code; PCP: Neetu Bryson Most likely transfer to [facility] in [place] as previously planned in the AM after labs. We have been trying to treat Clauida's hyponatremia, but this seems to be her baseline as it has been extremely difficult to raise to a normal level while here. According to previous labs, hyponatremia is chronic since 2014, with the lowest reading at 119 and highest 137 (only 5 times in the last 3 years has it been WNL). Therefore, her psychological state does not seem to be tied to her sodium level as this is a chronic condition. At this time it seems appropriate to transfer her in the AM for further psychological care.
[2018-02-13] MEDS ORDERED: Furosemide 20 MG/2 ML VIAL IVPUSH ONE (16:56)
[2018-02-13] MEDS: Polyethylene Glycol 3350 Powder 17 GM Packet PO PRN (21:05)
[2018-02-13] MEDS: Latanoprost 0.005% Ophth Soln 2.5 ML Bottle EYEBOTH SCH (21:05)
[2018-02-13] MEDS: Donepezil 10 MG Tab PO SCH (21:06)
[2018-02-14] MEDS: Tamsulosin 0.4 MG Cap.ER PO SCH (08:22)
[2018-02-14] MEDS: Cefepime 1 GM in Premix Bag 1 BAG IV SCH (08:22)
[2018-02-14] MEDS: Memantine 10 MG Tab PO SCH (08:22)
[2018-02-14] MEDS: LORazepam 0.5 MG Tab PO SCH ×2 (08:23→14:09)
[2018-02-14] MEDS: Atenolol 50 MG Tab PO SCH (08:23)
[2018-02-14] MEDS: cloZAPine 100 MG Tab PO SCH ×2 (08:23→14:10)
[2018-02-14] MEDS: Pantoprazole 40 MG Tab.CR PO SCH (08:23)
[2018-02-14] MEDS: Levothyroxine 88 MCG Tab PO SCH (08:23)
[2018-02-14] MEDS: Saccharomyces Boulardii (Probiotic) 250 MG Cap PO SCH (08:23)
[2018-02-14] MEDS: Enoxaparin 30 MG/0.3 ML Syringe SUBCUT SCH (08:24)
[2018-02-14] MEDS: Iron Polysaccharides Complex 150 MG Cap PO SCH (10:37)
[2018-02-14] MEDS ORDERED: Furosemide 20 MG/2 ML VIAL IVPUSH ONE (11:00)
[2018-02-14] MEDS ORDERED: Cefepime 1 GM in Premix Bag 1 BAG IV ONE (13:00)
[2018-02-14] MEDS ORDERED: OLANZapine 10 MG Vial IM ONE (14:16)
[2018-02-14] MEDS ORDERED: LORazepam 2 MG/ML SDV IVPUSH ONE (14:17)
[2018-02-14 17:11] VITALS: BP 153/88
--- NOTE | 2018-02-14 18:51 | PCM.DCSUM1 ---
Discharge Summary - Hospital Course HPI Initial Comments: The patient has a history of schizophrenia, status post bilateral partial frontal lobotomy, and is not able to provide much meaningful history. According to the triage nurse notes, EMS found the patient on her bedroom floor, not making much sense. A cervical collar was placed, and the patient was brought to the ED on a backboard. The patient tells me that she fell at home, but is not able to tell me why. No obvious injury, and at present, the patient is only complaining of discomfort from the cervical collar. She speaks of herself in the third person. Diagnosis: Stroke: No - Discharge Data Discharge Date: 02/14/18 (ADMIT 02/08/18) Discharge Disposition: DC/Tfer to Psych Hosp/Unit 65 Condition: Stable - Discharge Diagnosis/Problem(s) (1) Inverse psoriasis SNOMED Code(s): 80238301 ICD Code: L40.8 - OTHER PSORIASIS Status: Acute Priority: High (2) Fall at home SNOMED Code(s): 83336233 ICD Code: W19.XXXA - UNSPECIFIED FALL, INITIAL ENCOUNTER; Y92.009 - UNSP PLACE IN UNSP NON-INSTITUT (PRIVATE) RESIDENCE PLACE Status: Acute Priority: High (3) Hyponatremia SNOMED Code(s): 75643111 ICD Code: E87.1 - HYPO-OSMOLALITY AND HYPONATREMIA Status: Chronic Priority: High (4) Altered mental status SNOMED Code(s): 813940730 ICD Code: R41.82 - ALTERED MENTAL STATUS, UNSPECIFIED Status: Acute Priority: High Qualifiers: Altered mental status type: delirium Qualified Code(s): R41.0 - Disorientation, unspecified - Patient Summary/Data Operative Procedure(s) Performed: none Complications: none Consults: Consultations 02/07/18 13:51 Consult to Physician [CONS] Routine Labs Pending at D/C: none Recommended Follow-up Testing/Procedures: Follow up with PCP after D/C from inpt psych treatment -Re-check labs to monitor sodium after discharge. -Recommending Thermotabs 3 tabs BID for 5 days Planned Operative Procedure(s) after DC: none Hospital Course: I/P: Acute: AMS 2/2 Manic Episode Risk Factor: Pt has h/o Schizophrenia w/ Bipolar, has h/o manic episodes that "cycle" Manic episode started day before ED arrival per [facility] nurse; unsure of when last episode was (just started PACE in December) Pt is currently talking about herself in the third person, having conversations with herself and is unable to carry conversation/answer questions appropriately Pt in past has been triggered by change, [facility] nurse thinks scheduled new appointment with oncologist Dr. Hess at [facility] for injectafor triggered anxiety ; pt did not go to appointment Per BLANE nurse, pt also missed 2 doses of Clozapine and Ativan on Saturday; unsure as to why Consult to Telepsych Dr. Castro for evaluation--> refused by pt CM/SW for possible SNF placement Per [facility]ANE nurse, Maria Ines from [facility] will be trying to visit hospital to see how she is doing and to hopefully give input to D/C plan Dr. Pritchett contacted by Dr. Cummins. He suggests Haldol and Ativan to allow for lab draw. If sodium improved and she is medically stable he will accept her at [facility] in [place]. 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 Medina on 01/30 and was diagnosed with Inverse Psorasis per [facility]ANE nurse Put pt on regimen of Lotramine BID and Lidex BID x [address] Medina then D/C'd Lotramine and plan was to continue Lidex BID 2 weeks on/2 weeks off At this time, she should not be treated as this is her "week off" from medications Boil on buttucks Daily Shower Keep wounds dry Cefipime started d/t increased exudates in genital region Chronic: Schizophrenia s/p bilateral partial frontal lobotomy Anxiety/Depression HTN HLD GERD Seizures Hypothyroid Anemia Psoriasis Hyponatremia, chronic 128 at presentation to ED--> 132--> 131 We have been trying to treat her hyponatremia, but this seems to be her baseline as it has been extremely difficult to raise to a normal level while here. According to previous labs, hyponatremia is chronic since 2014, with only 5 times in the last 3 years has it been WNL. Hypertonic saline IVF--> D/C today d/t swelling Thermotabs--> D/C 1500 Fluid restriction --> D/C Monitor Plan: Admitted to Observation, 02/07/18 --> Upgrade to full admit with hyponatremia and confusion She remains stable Other orders as indicated above Replace electrolytes PRN Routine AM labs Regular diet, 1500 Fluid restriction --> She is currently refusing to eat d/t unhappiness with fluid restriction CM/SW for discharge planning DVT Prophylaxis: Lovenox; refused SCDs GI Prophylaxis: Protonix Code Status: Full Code; PCP: Neetu Bryson Most likely transfer to [facility] in [place] as previously planned in the AM after labs. Transfer to Dr. Pritchett at [facility] in [place] for inpatient psych treatment. We have been trying to treat Claudia's hyponatremia, but this seems to be her baseline as it has been extremely difficult to raise to a normal level while here. According to previous labs, hyponatremia is chronic since 2014, with the lowest reading at 119 and highest 137 (only 5 times in the last 3 years has it been WNL). Therefore, her psychological state does not seem to be tied to her sodium level as this is a chronic condition. At this time it seems appropriate to transfer her in the AM for further psychological care. - Patient Instructions Diet: Usual Diet as Tolerated Activity: As Tolerated Driving: Do Not Drive Showering/Bathing: May Shower Wound/Incision Care: Keep Operative Site/Wound Site Clean and Dry, Change Dressing Daily Notify Provider of: Fever, Increased Pain, Nausea and/or Vomiting Other/Special Instructions: -Re-check labs to monitor sodium after discharge. - Recommending Thermotabs 3 tabs BID for 5 days - Discharge Plan *PRESCRIPTION DRUG MONITORING PROGRAM REVIEWED*: Not Applicable *COPY OF PRESCRIPTION DRUG MONITORING REPORT IN PATIENT CHALO: Not Applicable Prescriptions/Med Rec: Sodium Chloride/KCl [Thermotabs] 3 each PO BID 5 Days #30 tab Home Medications: Home Meds Atenolol [Tenormin] 50 mg PO DAILY 02/07/18 [History] Donepezil HCl 10 mg PO BEDTIME 02/07/18 [History] Ibuprofen 200 mg PO Q6HR PRN 02/07/18 [History] Iron Polysaccharides Complex [Ferrex 150] 150 mg PO WITHLUNCH 02/07/18 [History] LORazepam [Ativan] 0.5 mg PO TID 02/07/18 [History] Lactobacillus Acidophilus [Acidophilus] 1 tab PO DAILY 02/07/18 [History] Levothyroxine [Synthroid] 88 mcg PO DAILY 02/07/18 [History] Memantine HCl [Namenda] 5 mg PO BEDTIME 02/07/18 [History] Pantoprazole [ProTONIX] 40 mg PO DAILY 02/07/18 [History] cloZAPine 350 mg PO BEDTIME 02/07/18 [History] cloZAPine [Clozapine Odt] 200 mg PO BID 02/07/18 [History] .Flucinonide 1 applic TOP BID 02/11/18 [History] Latanoprost/Pf [Latanoprost 0.005% Eye Drop] 1 drop EYEBOTH DAILY 02/11/18 [ History] Memantine HCl [Namenda] 10 mg PO DAILY 02/11/18 [History] Sodium Chloride/KCl [Thermotabs] 3 each PO BID 5 Days #30 tab 02/14/18 [Rx] Patient Handouts: Hyponatremia Referrals: Neetu Bryson MD [Physician] - - Discharge Summary/Plan Comment DC Time >30 min.: Yes (45) - General Info Date of Service: 02/14/18 Admission Dx/Problem (Free Text: Admission Diagnosis/Problem Admission Diagnosis/Problem Hyponatremia Subjective Update: In to see Claudia. She is laying in bed. No new complaints today. Today her Na has slightly improved to 133. She also had a BM after many days of constipation. We have found that her hyponatremia seems to be a chronic condition. Therefore, her psychological state does not seem to be tied to her sodium level. She has been accepted by Dr. Pritchett and will be transferred to [facility] for inpatient psych treatment. Functional Status: Reports: Pain Controlled, Tolerating Diet, Ambulating, Urinating - Review of Systems General: Reports: No Symptoms. Denies: Fever, Chills HEENT: Reports: No Symptoms Pulmonary: Reports: Shortness of Breath. Denies: Cough, Wheezing Cardiovascular: Reports: Edema. Denies: Chest Pain Gastrointestinal: Reports: No Symptoms. Denies: Abdominal Pain, Constipation, Diarrhea, Nausea, Vomiting Genitourinary: Reports: No Symptoms Musculoskeletal: Reports: No Symptoms Skin: Reports: No Symptoms Neurological: Reports: No Symptoms Psychiatric: Reports: No Symptoms - Patient Data Vitals - Most Recent: Last Vital Signs Temp 97.9 F 02/14/18 13:30 Pulse 74 02/14/18 13:30 Resp 16 02/14/18 13:30 BP 153/88 H 02/14/18 13:30 Pulse Ox 97 02/14/18 13:30 Weight - Most Recent: 180 lb 2 oz I&O - Last 24 hours: Intake & Output 02/14/18 02/14/18 02/14/18 06:59 14:59 22:59 Intake Total 830 180 Output Total 1500 Balance -670 180 Lab Results - Last 24 hrs: Laboratory Results - last 24 hr 02/14/18 02/14/18 Range/Units 06:50 06:50 WBC 7.95 (3.98-10.04) K/mm3 RBC 3.66 L (3.98-5.22) M/mm3 Hgb 9.9 L (11.2-15.7) gm/L Hct 30.9 L (34.1-44.9) % MCV 84.4 (79.4-94.8) fl MCH 27.0 (25.6-32.2) pg MCHC 32.0 L (32.2-35.5) g/dl RDW Std Deviation 51.2 H (36.4-46.3) fL Plt Count 377 H (182-369) K/mm3 MPV 9.0 L (9.4-12.3) fl Neut % (Auto) 61.5 (34.0-71.1) % Lymph % (Auto) 19.7 (19.3-51.7) % Scott % (Auto) 12.2 (4.7-12.5) % Eos % (Auto) 5.8 (0.7-5.8) Baso % (Auto) 0.4 (0.1-1.2) % Neut # (Auto) 4.89 (1.56-6.13) K/mm3 Lymph # (Auto) 1.57 (1.18-3.74) K/mm3 Scott # (Auto) 0.97 H (0.24-0.36) K/mm3 Eos # (Auto) 0.46 H (0.04-0.36) K/mm3 Baso # (Auto) 0.03 (0.01-0.08) K/mm3 Sodium 133 L (136-145) mEq/L Potassium 4.1 (3.5-5.1) mEq/L Chloride 97 L (98-107) mEq/L Carbon Dioxide 29 (21-32) mEq/L Anion Gap 11.1 (5-15) BUN 5 L (7-18) mg/dL Creatinine 0.8 (0.55-1.02) mg/dL Est Cr Clr Drug Dosing 65.61 mL/min Estimated GFR (MDRD) > 60 (>60) mL/min BUN/Creatinine Ratio 6.3 L (14-18) Glucose 88 (80-115) mg/dL Calcium 8.7 (8.5-10.1) mg/dL Med Orders - Current: Current Medications Discontinued Medications Al Hydroxide/Mg Hydroxide (Mag-Al Plus) 30 ml PO STAT ONE Stop: 02/08/18 16:41 Last Admin: 02/08/18 17:12 Dose: Not Given Albuterol/Ipratropium (Duoneb 3.0-0.5 Mg/3 Ml) 3 ml NEB QID PRN PRN Reason: Shortness of Breath Atenolol (Tenormin) 50 mg PO DAILY [facility] Last Admin: 02/14/18 08:23 Dose: 50 mg Bisacodyl (Dulcolax) 5 mg PO DAILY PRN PRN Reason: Constipation Last Admin: 02/13/18 16:23 Dose: 5 mg Bisacodyl (Dulcolax) 10 mg RECTAL DAILY PRN PRN Reason: Constipation Clozapine (Clozapine) 150 mg PO BEDTIME [facility] Last Admin: 02/13/18 21:07 Dose: 150 mg Clozapine (Clozapine) 200 mg PO TID [facility] Last Admin: 02/14/18 14:10 Dose: 200 mg Docusate Sodium (Colace) 100 mg PO BID PRN PRN Reason: Constipation Last Admin: 02/12/18 20:23 Dose: 100 mg Donepezil HCl (Aricept) 10 mg PO BEDTIME [facility] Last Admin: 02/13/18 21:06 Dose: 10 mg Enoxaparin Sodium (Lovenox) 30 mg SUBCUT DAILY [facility] Last Admin: 02/14/18 08:24 Dose: 30 mg Furosemide (Lasix) 20 mg IVPUSH NOW ONE Stop: 02/11/18 16:31 Last Admin: 02/11/18 17:46 Dose: 20 mg Furosemide (Lasix) 20 mg IVPUSH NOW ONE Stop: 02/13/18 16:57 Last Admin: 02/13/18 17:48 Dose: 20 mg Furosemide (Lasix) 20 mg IVPUSH ONETIME ONE Stop: 02/14/18 11:01 Last Admin: 02/14/18 11:23 Dose: 20 mg Hydralazine HCl (Apresoline) 10 mg IVPUSH Q4H PRN PRN Reason: Hypertension Last Admin: 02/13/18 04:11 Dose: 10 mg Sodium Chloride (Normal Saline) 1,000 mls @ 150 mls/hr IV ASDIRECTED [facility] Last Admin: 02/09/18 15:03 Dose: 150 mls/hr Sodium Chloride (Normal Saline) 1,000 mls @ 999 mls/hr IV ONETIME ONE Stop: 02/07/18 11:28 Last Admin: 02/07/18 10:43 Dose: 999 mls/hr Magnesium Sulfate 4 gm/ Premix 100 mls @ 25 mls/hr IV ONETIME ONE Stop: 02/09/18 15:16 Last Admin: 02/09/18 17:14 Dose: 25 mls/hr Sodium Chloride (Sodium Chloride 3%) 500 mls @ 10 mls/hr IV ASDIRECTED [facility] Last Admin: 02/10/18 16:39 Dose: 4 mls/hr Cefepime HCl 1 gm/ Premix 50 mls @ 100 mls/hr IV Q8H [facility] Last Admin: 02/10/18 20:02 Dose: 100 mls/hr Cefepime HCl 1 gm/ Premix 50 mls @ 100 mls/hr IV Q12H [facility] Last Admin: 02/14/18 08:22 Dose: 100 mls/hr Olanzapine 1.5 mg/ Sterile (Water) 2.1 mls @ 999 mls/hr IM ONETIME ONE Stop: 02/12/18 13:40 Last Admin: 02/12/18 13:43 Dose: Not Given Sodium Chloride (Sodium Chloride 3%) 500 mls @ 10 mls/hr IV ASDIRECTED [facility] Last Admin: 02/12/18 23:01 Dose: 10 mls/hr Sodium Chloride (Sodium Chloride 3%) 500 mls @ 14 mls/hr IV ASDIRECTED [facility] Stop: 02/13/18 18:00 Last Admin: 02/13/18 13:23 Dose: 14 mls/hr Cefepime HCl 1 gm/ Premix 50 mls @ 100 mls/hr IV ONETIME ONE Stop: 02/14/18 13:29 Last Admin: 02/14/18 12:11 Dose: 100 mls/hr Ibuprofen (Motrin) 200 mg PO Q6H PRN PRN Reason: Pain Latanoprost (Xalatan 0.005% Ophth Soln) 0 ml EYEBOTH BEDTIME [facility] Last Admin: 02/13/18 21:05 Dose: 1 drop Levothyroxine Sodium (Synthroid) 88 mcg PO DAILY [facility] Last Admin: 02/14/18 08:23 Dose: 88 mcg Lorazepam (Ativan) 0.5 mg PO TID PRN PRN Reason: Pain Last Admin: 02/07/18 12:08 Dose: 0.5 mg Lorazepam (Ativan) 2 mg IVPUSH Q4H PRN PRN Reason: Seizures Lorazepam (Ativan) 5 mg IVPUSH ONETIME ONE Stop: 02/10/18 13:40 Last Admin: 02/10/18 14:38 Dose: 5 mg Lorazepam (Ativan) 0.5 mg PO TID [facility] Last Admin: 02/14/18 14:09 Dose: 0.5 mg Lorazepam (Ativan) 1 mg IVPUSH ONETIME ONE Stop: 02/13/18 10:27 Last Admin: 02/13/18 13:56 Dose: Not Given Lorazepam (Ativan) 5 mg IVPUSH ONETIME ONE Stop: 02/13/18 10:27 Last Admin: 02/13/18 11:08 Dose: 5 mg Lorazepam (Ativan) 5 mg IVPUSH ONETIME ONE Stop: 02/14/18 14:18 Last Admin: 02/14/18 14:41 Dose: 5 mg Memantine (Namenda) 5 mg PO BID [facility] Last Admin: 02/11/18 08:20 Dose: 5 mg Memantine (Namenda) 10 mg PO DAILY [facility] Last Admin: 02/14/18 08:22 Dose: 10 mg Memantine (Namenda) 5 mg PO BEDTIME [facility] Last Admin: 02/13/18 21:06 Dose: 5 mg Olanzapine (Zyprexa) 2.5 mg IM ONETIME ONE Stop: 02/10/18 14:01 Last Admin: 02/10/18 14:38 Dose: 2.5 mg Olanzapine (Zyprexa) 1.5 mg IM ONETIME ONE Stop: 02/12/18 13:41 Last Admin: 02/12/18 14:30 Dose: Not Given Olanzapine (Zyprexa) 2.5 mg IM ONETIME ONE Stop: 02/12/18 13:41 Last Admin: 02/12/18 14:12 Dose: 2.5 mg Olanzapine (Zyprexa) 2.5 mg IM ONETIME ONE Stop: 02/13/18 10:46 Last Admin: 02/13/18 11:07 Dose: 2.5 mg Olanzapine (Zyprexa) 2.5 mg IM ONETIME ONE Stop: 02/14/18 14:17 Last Admin: 02/14/18 14:42 Dose: 2.5 mg Ondansetron HCl (Zofran) 4 mg IVPUSH Q4H PRN PRN Reason: Nausea/Vomiting Last Admin: 02/12/18 10:34 Dose: 4 mg Oral Electrolytes (Thermotabs) 2 each PO BID [facility] Oral Electrolytes (Thermotabs) 1 each PO BID [facility] Last Admin: 02/07/18 09:44 Dose: 1 each Oral Electrolytes (Thermotabs) 2 each PO BID [facility] Last Admin: 02/09/18 08:44 Dose: 2 each Oral Electrolytes (Thermotabs) 1 each PO ONETIME ONE Stop: 02/07/18 10:46 Last Admin: 02/07/18 10:47 Dose: 1 each Oral Electrolytes (Thermotabs) 3 each PO BID [facility] Last Admin: 02/11/18 08:20 Dose: 3 each Oral Electrolytes (Thermotabs) 3 each PO TID [facility] Last Admin: 02/13/18 16:23 Dose: 3 each Pantoprazole Sodium (Protonix) 40 mg PO DAILY [facility] Last Admin: 02/14/18 08:23 Dose: 40 mg Polyethylene Glycol (Miralax) 17 gm PO BEDTIME PRN PRN Reason: Constipation Last Admin: 02/13/18 21:05 Dose: 17 gm Polysaccharide Iron Complex (Ferrex 150) 150 mg PO WITHLUNCH [facility] Last Admin: 02/14/18 10:37 Dose: 150 mg Potassium Chloride (Klor-Con M20) 40 meq PO Q4H [facility] Stop: 02/12/18 14:01 Last Admin: 02/12/18 14:11 Dose: 40 meq Saccharomyces Boulardii (Florastor) 250 mg PO DAILY [facility] Last Admin: 02/14/18 08:23 Dose: 250 mg Tamsulosin HCl (Flomax) 0.4 mg PO BIDPC [facility] Last Admin: 02/14/18 08:22 Dose: 0.4 mg - Exam Quality Assessment: Reports: DVT Prophylaxis General: Reports: Alert, Oriented, Cooperative, No Acute Distress HEENT: Reports: Pupils Equal, Pupils Reactive, EOMI, Mucous Membr. Moist/[place] Neck: Reports: Supple Lungs: Reports: Clear to Auscultation, Normal Respiratory Effort Cardiovascular: Reports: Regular Rate, Regular Rhythm GI/Abdominal Exam: Normal Bowel Sounds, Soft, Non-Tender, No Organomegaly, No Distention, No Abnormal Bruit, No Mass, Pelvis Stable (Female) Exam: Deferred Rectal (Female) Exam: Deferred Back Exam: Reports: Normal Inspection, Full Range of Motion Extremities: Normal Inspection, Normal Range of Motion, Non-Tender, No Pedal Edema, Normal Capillary Refill Skin: Reports: Warm, Dry, Intact Wound/Incisions: Reports: Healing Well, Dressing Dry and Intact, Erythema Improving Neurological: Reports: No New Focal Deficit Psy/Mental Status: Reports: Alert, Labile Mood. Denies: Normal Affect, Normal Mood
== END 2018-02-14 15:50 | DRG 641 ==
LOC: JD.ED 00:40 → JD.MS 03:41 → OBSVTOIN 02-08 13:38 → JD.MS 02-08 13:39
PROVIDERS: ADMIT Internal Medicine; ATTEND Internal Medicine
DX: E87.1 Hypo-osmolality and hyponatremia (principal); R41.82 Altered mental status, unspecified; F20.9 Schizophrenia, unspecified; E78.00 Pure hypercholesterolemia, unspecified; I10 Essential (primary) hypertension; K21.9 Gastro-esophageal reflux disease without esophagitis; R56.9 Unspecified convulsions; F41.9 Anxiety disorder, unspecified; D64.9 Anemia, unspecified; E78.5 Hyperlipidemia, unspecified; E03.9 Hypothyroidism, unspecified; L40.8 Other psoriasis; F32.9 Major depressive disorder, single episode, unspecified; R52 Pain, unspecified; L40.9 Psoriasis, unspecified; W19.XXXA Unspecified fall, initial encounter; H40.9 Unspecified glaucoma; H54.7 Unspecified visual loss; F31.9 Bipolar disorder, unspecified; K59.00 Constipation, unspecified; T80.89XA Other complications following infusion, transfusion and therapeutic injection, initial encounter; S50.821A Blister (nonthermal) of right forearm, initial encounter; Y84.8 Other medical procedures as the cause of abnormal reaction of the patient, or of later complication, without mention of misadventure at the time of the procedure; Z91.19 Patient's noncompliance with other medical treatment and regimen; Z88.8 Allergy status to other drugs, medicaments and biological substances; Z79.899 Other long term (current) drug therapy; Z91.14 Patient's other noncompliance with medication regimen
CPT/HCPCS: 36415 ×2; 70450; 72125; 80048 ×2; 80053; 81001; 83735 ×3; 84295; 84484; 85007; 85025; 85027; 86140; 93005; 96360; 96361; 99285; A9270 ×21; J7040 ×6; 51701; 51798; 87070; G0378; J0360; J0692; J1650; J2060; J2405; J3475; J3490

== ENCOUNTER 2019-03-30 10:24 | Emergency (ER) | payer MEDICARE, MEDICAID ==
--- NOTE | 2019-03-30 12:29 | CT ---
Head CT Technique: Multiple axial sections through the brain were obtained. Intravenous contrast was utilized. Comparison: Previous head CT study of 02/07/18. Findings: Ventricles along with basal cisterns and sulci over the convexities are mildly prominent. No abnormal parenchymal densities are seen. No evidence of intracranial hemorrhage. No midline shift or mass effect is seen. Bone window settings were reviewed which show no acute calvarial abnormality. Diffuse opacification of the mastoid sinuses and middle ear cavity are seen suspicious for mastoiditis and otitis media. Left mastoid sinus is clear. Paranasal sinuses are clear. Impression: 1. Opacified right mastoid sinus as well as right middle ear cavity suspicious for otitis media and mastoiditis. This finding is an interval change from prior head CT. 2. No acute intracranial abnormality is seen. No acute calvarial abnormality is seen. Diagnostic code #3
--- NOTE | 2019-03-30 12:29 | CT ---
CT cervical spine Technique: Multiple axial sections were obtained from above C1 inferiorly to the mid T3 level. Reconstructed sagittal and coronal images were reviewed. Comparison: Previous CT cervical spine study of 02/07/18. Findings: Scoliosis is present. Mild spondylolisthesis is noted at C5-C6 and C6-C7 which is due to degenerative apophyseal change. Degenerative apophyseal change is also noted throughout the other portions of the cervical spine. Mild disc space narrowing is noted at C6-C7 as well as posteriorly at C2-C3 and C3-C4. Anterior endplate osteophytes are seen at C3-C4 through C6-C7. No fracture is appreciated. Visualized lung apices are clear. Mild bilateral neural foraminal stenosis is noted at C3-C4. Impression: 1. Diffuse degenerative change as noted above. 2. No acute fracture is seen. Note: Findings remain fairly stable from previous study. Diagnostic code #2
--- NOTE | 2019-03-30 12:29 | CT ---
CT pelvis Technique: Multiple axial sections through the pelvis were obtained with bone algorithm. Reconstructed coronal and sagittal images were obtained. Comparison: No previous study. Findings: Mild joint space narrowing is noted within the right hip. No fracture or other acute abnormality is seen. Impression: 1. Nothing acute is appreciated on CT study of the pelvis. 2. Mild joint space narrowing is noted within the right hip. Diagnostic code #1
[2019-03-30] MEDS ORDERED: Albumin 25% 12.5 GM/50 ML BAG IV ONE (13:24)
--- NOTE | 2019-03-30 13:30 | EDM.PDOC ---
ED HPI GENERAL MEDICAL PROBLEM - General Chief Complaint: Skin Complaint Stated Complaint: FACIAL EDEMA,ARMS EDEMA Time Seen by Provider: 03/30/19 10:45 Source of Information: Reports: Patient, EMS, Senior Living Records History Limitations: Reports: No Limitations - History of Present Illness INITIAL COMMENTS - FREE TEXT/NARRATIVE: The patient presents from the long-term for a fall and generalized swelling. She says she got up last night to use the restroom and she fell and hit her head. She had no LOC. She does have a headache now and neck pain. She also has swelling in her face, arms and legs. She has no shortness of breath. She has no chest pain or shortness of breath. She has no abdominal pain. She has no nausea or vomiting. Onset: Sudden Duration: Day(s): (Last night) Location: Reports: Head, Neck Quality: Reports: Ache Severity: Moderate Improves with: Reports: None Worsens with: Reports: None Associated Symptoms: Reports: Headaches, Nausea/Vomiting. Denies: Chest Pain, Cough, Fever/Chills, Shortness of Breath Face/Facial Pain Score (Numeric/FACES): 8 - Related Data Allergies Allergy/AdvReac Type Severity Reaction Status Date / Time carbamazepine [From Tegretol] Allergy Cannot Verified 03/30/19 10:49 Remember ezetimibe [From Zetia] Allergy Cannot Verified 03/30/19 10:49 Remember haloperidol AdvReac Seizures Verified 03/30/19 10:49 trifluoperazine HCl AdvReac Seizures Verified 03/30/19 10:49 [From Stelazine] asorbic acid Allergy Cannot Uncoded 02/07/18 01:38 Remember Home Meds: Home Meds Donepezil HCl 10 mg PO DAILY 02/07/18 [History] Lactobacillus Acidophilus [Acidophilus] 1 tab PO DAILY 02/07/18 [History] Levothyroxine [Synthroid] 88 mcg PO DAILY 02/07/18 [History] Pantoprazole [ProTONIX] 40 mg PO DAILY 02/07/18 [History] Memantine HCl [Namenda] 10 mg PO BID 02/11/18 [History] ARIPiprazole [Abilify] 2 mg PO BEDTIME 03/30/19 [History] Amoxicillin 1,000 mg PO BID #40 tab 03/30/19 [Rx] Betamethasone Cream 03/30/19 [History] Bisacodyl [Laxative] 10 mg PO DAILY PRN 03/30/19 [History] Carboxymethylcellulose Sodium [Refresh Tears] 1 drop EYEBOTH BEDTIME 03/30/19 [ History] Chlorhexidine 4% 03/30/19 [History] Cholecalciferol (Vitamin D3) [Vitamin D3] 2,000 unit PO DAILY 03/30/19 [History] Dorzolamide HCl/Timolol Maleat [Dorzolamide-Timolol Eye Drops] 1 drop EYEBOTH BID 03/30/19 [History] Econazole Cream 1% 03/30/19 [History] Fenofibrate Nanocrystallized [Fenofibrate] 145 mg PO DAILY 03/30/19 [History] Ferrous Sulfate 1 tab PO DAILY 03/30/19 [History] Folic Acid 03/30/19 [History] Furosemide [Lasix] 20 mg PO DAILY #7 tab 03/30/19 [Rx] Hibclen Wash. MOWESA 03/30/19 [History] Levocarnitine (With Sugar) [Levocarnitine Soln] 10 ml PO BID 03/30/19 [History] Miconazole 03/30/19 [History] Mirtazapine 7.5 mg PO BEDTIME 03/30/19 [History] Multivit-Min/FA/Lycopene/Lut [Certavite Sr-Antioxidant Tab] 1 tab PO DAILY 03/30 [History] Mupirocin Oint [Bactroban Oint] 03/30/19 [History] Polyethylene Glycol 3350 [MiraLAX] 17 gm PO BID PRN 03/30/19 [History] Pyridoxine HCl (Vitamin B6) [Vitamin B-6] 50 mg PO DAILY 03/30/19 [History] Tacrolimus Anhydrous [Tacrolimus] 1 applic TOP BID 03/30/19 [History] cloZAPine [Clozapine] 200 mg PO DAILY 03/30/19 [History] cloZAPine [Clozapine] 300 mg PO BEDTIME 03/30/19 [History] clonazePAM [Klonopin] 1 mg PO BID 03/30/19 [History] guaiFENesin [Robafen] 10 ml PO TID PRN 03/30/19 [History] Past Medical History HEENT History: Reports: Glaucoma Other HEENT History: wears glasses Cardiovascular History: Reports: High Cholesterol, Hypertension Respiratory History: Reports: COPD Gastrointestinal History: Reports: GERD, GI Bleed Neurological History: Reports: Seizure Other Neuro History: dementia Psychiatric History: Reports: Anxiety, Dementia, Depression, Schizophrenia Endocrine/Metabolic History: Reports: Hypothyroidism, Vitamin D Deficiency Hematologic History: Reports: Anemia Dermatologic History: Reports: Cellulitis, Eczema, Psoriasis, Other (See Below) Other Dermatologic History: skin infections to groin, under breasts and right ear. - Infectious Disease History Infectious Disease History: Reports: MRSA - Past Surgical History GI Surgical History: Reports: Appendectomy Social & Family History - Family History Family Medical History: Noncontributory Cardiac: Reports: Pacemaker - Tobacco Use Smoking Status *Q: Never Smoker - Caffeine Use Caffeine Use: Reports: Soda Other Caffeine Use: reports to drink 2 cups of coffee a week, 2 cups of tea a week and a can of diet coke daily. - Recreational Drug Use Recreational Drug Use: No - Living Situation & Occupation Living situation: Reports: Single, with Family (Mother) Occupation: Unemployed ED ROS GENERAL - Review of Systems Review Of Systems: See Below Constitutional: Reports: No Symptoms HEENT: Reports: No Symptoms Respiratory: Reports: No Symptoms Cardiovascular: Reports: No Symptoms Endocrine: Reports: No Symptoms GI/Abdominal: Reports: No Symptoms : Reports: No Symptoms Musculoskeletal: Reports: Neck Pain ED EXAM, SKIN/RASH Exam: See Below Exam Limited By: No Limitations General Appearance: Alert, No Apparent Distress Ears: Normal External Exam Nose: Normal Inspection Head: Atraumatic, Normocephalic Neck: Tender Midline Respiratory/Chest: No Respiratory Distress, Lungs Clear, Normal Breath Sounds Cardiovascular: Regular Rate, Rhythm, No Edema, No Murmur GI/Abdominal: Soft, Non-Tender, No Organomegaly, No Mass Back Exam: Normal Inspection Extremities: Other (Swelling in her arms and legs) Skin: Rash (Red and scalling skin) EKG INTERPRETATION EKG Date: 03/30/19 Time: 11:53 Rhythm: NSR Rate (Beats/Min): 65 [place]: Normal P-Wave: Present QRS: Normal ST-T: Normal QT: Normal ND/PQ Interval: 1st degree HB Course - Vital Signs Last Recorded V/S: Last Vital Signs Temp 97.6 F 03/30/19 10:43 Pulse 69 03/30/19 10:43 Resp 19 03/30/19 10:43 BP 105/61 03/30/19 10:43 Pulse Ox 99 03/30/19 10:43 - Orders/Labs/Meds Orders: Active Orders 24 hr Category Date Time Status Cardiac Monitoring [RC] . DIRECTED Care 03/30/19 11:04 Active EKG Documentation Completion [RC] STAT Care 03/30/19 11:05 Active Peripheral IV Care [RC] . DIRECTED Care 03/30/19 13:33 Active Sodium Chloride 0.9% [Saline Flush] Med 03/30/19 13:33 Active 10 ml FLUSH ASDIRECTED PRN Peripheral IV Insertion Adult [OM.PC] Routine Oth 03/30/19 13:33 Ordered Medication Orders Sodium Chloride (Saline Flush) 10 ml FLUSH ASDIRECTED PRN PRN Reason: Keep Vein Open Last Admin: 03/30/19 13:50 Dose: 10 ml Labs: Laboratory Tests 03/30/19 03/30/19 03/30/19 Range/Units 11:33 11:33 11:33 WBC 12.94 H (3.98-10.04) K/mm3 RBC 2.93 L (3.98-5.22) M/mm3 Hgb 8.0 L D (11.2-15.7) gm/dl Hct 25.1 L (34.1-44.9) % MCV 85.7 (79.4-94.8) fl MCH 27.3 (25.6-32.2) pg MCHC 31.9 L (32.2-35.5) g/dl RDW Std Deviation 58.2 H (36.4-46.3) fL Plt Count 447 H (182-369) K/mm3 MPV 8.5 L (9.4-12.3) fl Neut % (Auto) Cancelled Lymph % (Auto) Cancelled [place] % (Auto) Cancelled Eos % (Auto) Cancelled Baso % (Auto) Cancelled Neut # (Auto) Cancelled Lymph # (Auto) Cancelled [place] # (Auto) Cancelled Eos # (Auto) Cancelled Baso # (Auto) Cancelled Neutrophils % (Manual) 61 H (40-60) % Band Neutrophils % 1 (0-10) % Lymphocytes % (Manual) 14 L (20-40) % Atypical Lymphs % 0 % Monocytes % (Manual) 7 (2-10) % Eosinophils % (Manual) 17 H (0.7-5.8) % Basophils % (Manual) 0 L (0.1-1.2) Manual Slide Review Cancelled Toxic Granulation 3+ marked Platelet Estimate Increased Plt Morphology Comment Normal Hypochromasia 2+ moderate Anisocytosis 1+ slight RBC Morph Comment Not Reportable Sodium 131 L (136-145) mEq/L Potassium 4.5 (3.5-5.1) mEq/L Chloride 98 (98-107) mEq/L Carbon Dioxide 28 (21-32) mEq/L Anion Gap 9.5 (5-15) BUN 8 (7-18) mg/dL Creatinine 0.9 (0.55-1.02) mg/dL Est Cr Clr Drug Dosing 57.57 mL/min Estimated GFR (MDRD) > 60 (>60) mL/min BUN/Creatinine Ratio 8.9 L (14-18) Glucose 83 (80-115) mg/dL Calcium 8.3 L (8.5-10.1) mg/dL Total Bilirubin 0.2 (0.2-1.0) mg/dL AST 14 L (15-37) U/L ALT 26 (14-59) U/L Alkaline Phosphatase 72 (46-116) U/L Troponin I < 0.017 (0.00-0.056) ng/mL NT-Pro-B Natriuret Pep 1958 H (0-125) pg/mL Total Protein 5.5 L (6.4-8.2) g/dl Albumin 1.8 L (3.4-5.0) g/dl Globulin 3.7 gm/dL Albumin/Globulin Ratio 0.5 L (1-2) Meds: Medications Generic Name Dose Route Start Last Admin Trade Name Freq PRN Reason Stop Dose Admin Sodium Chloride 10 ml 03/30/19 13:33 03/30/19 13:50 Saline Flush FLUSH 10 ml ASDIRECTED PRN Administration Keep Vein Open Discontinued Medications Generic Name Dose Route Start Last Admin Trade Name Freq PRN Reason Stop Dose Admin Albumin Human 12.5 gm in 50 mls @ 100 mls/hr 03/30/19 13:24 03/30/19 13:46 Flexbumin 25% IV 03/30/19 13:53 100 mls/hr ONETIME ONE Administration - Re-Assessments/Exams Free Text/Narrative Re-Assessment/Exam: 03/30/19 13:32 I ordered labs, CT of her head, cervical spine and pelvis. The CT of her pelvis shows nothing acute. The CT of her head shows opacified right mastoid sinus as well as right middle ear cavity suspicious for otitis media and mastoiditis. This finding si an interval change from prior head CT. No acute intracranial abnormality is seen. No acute calvarial abnormality is seen. The CT of her cervical spine shows diffuse degenerative change. No acute fracture is seen. 03/30/19 13:37 Her WBC is elevated at 12.94. Her Hgb is low at 8. She has been low in the past. Her Na is low at 131. Her BNP is elevated at 1958. Her total protein is low at 5.5. Her albumin is low at 1.8. I feel this could be causing some of her swelling. I have ordered some albumin and I will get her on lasix for a few days. I will have her follow up with her primary within a few days to a week. 03/30/19 14:08 I did look in her ear and she does have an otitis media. I will get her on an antibiotic and lasix. Departure - Departure Time of Disposition: 14:15 Disposition: Home, Self-Care 01 Condition: Good Clinical Impression: Skin rash, Hypoalbuminemia Fall Qualifiers: Encounter type: initial encounter Qualified Code(s): W19.XXXA - Unspecified fall, initial encounter Otitis media Qualifiers: Otitis media type: serous Chronicity: acute Laterality: right Recurrence: non- recurrent Qualified Code(s): H65.01 - Acute serous otitis media, right ear Anemia Qualifiers: Anemia type: unspecified type Qualified Code(s): D64.9 - Anemia, unspecified - Discharge Information *PRESCRIPTION DRUG MONITORING PROGRAM REVIEWED*: No *COPY OF PRESCRIPTION DRUG MONITORING REPORT IN PATIENT CHALO: No Prescriptions: Amoxicillin 1,000 mg PO BID #40 tab Furosemide [Lasix] 20 mg PO DAILY #7 tab Referrals: Nikko Stevens MD [Primary Care Provider] - 1 Week Forms: ED Department Discharge Additional Instructions: Take your medication as prescribed. Take the amoxicillin 2 pills in the morning and 2 pills at night for 10 days. Take the lasix daily for 1 week. Follow up with Dr Rodney within a week. Please return if you are worse. - My Orders Last 24 Hours: My Active Orders 03/30/19 11:04 Cardiac Monitoring [RC] . DIRECTED 03/30/19 11:05 EKG Documentation Completion [RC] STAT 03/30/19 13:33 Peripheral IV Care [RC] . DIRECTED Sodium Chloride 0.9% [Saline Flush] 10 ml FLUSH ASDIRECTED PRN Peripheral IV Insertion Adult [OM.PC] Routine - Assessment/Plan Last 24 Hours: My Active Orders 03/30/19 11:04 Cardiac Monitoring [RC] . DIRECTED 03/30/19 11:05 EKG Documentation Completion [RC] STAT 03/30/19 13:33 Peripheral IV Care [RC] . DIRECTED Sodium Chloride 0.9% [Saline Flush] 10 ml FLUSH ASDIRECTED PRN Peripheral IV Insertion Adult [OM.PC] Routine
[2019-03-30] MEDS ORDERED: Sodium Chloride 0.9% 10 ML Syringe FLUSH PRN (13:33)
--- NOTE | 2019-03-30 14:01 | CR ---
Chest: Portable view of the chest was obtained. Comparison: Prior chest x-ray of 11/19/17. Heart size is felt to be slightly enlarged. Tortuous thoracic aorta is seen. No acute parenchymal change is seen. Degenerative change is noted within the right shoulder. Impression: 1. Heart size is felt to be slightly enlarged. Other incidental findings. Nothing acute is appreciated. Diagnostic code #2
[2019-03-30 15:11] VITALS: BP 120/83; PULSE 76
== END 2019-03-30 15:00 | disposition home or self-care (01) ==
LOC: JD.ED 10:24
DX: R21 Rash and other nonspecific skin eruption (principal); H65.01 Acute serous otitis media, right ear; R77.0 Abnormality of albumin; I10 Essential (primary) hypertension; E78.00 Pure hypercholesterolemia, unspecified; J44.9 Chronic obstructive pulmonary disease, unspecified; K21.9 Gastro-esophageal reflux disease without esophagitis; F41.9 Anxiety disorder, unspecified; F32.9 Major depressive disorder, single episode, unspecified; E03.9 Hypothyroidism, unspecified; Z88.8 Allergy status to other drugs, medicaments and biological substances; Z79.899 Other long term (current) drug therapy; W19.XXXA Unspecified fall, initial encounter; W22.8XXA Striking against or struck by other objects, initial encounter
CPT/HCPCS: 36415; 70450; 71045; 72125; 72192; 80053; 83880; 84484; 85007; 85027; 93005; 96365; 99284; P9047; 93010

== ENCOUNTER 2019-04-10 11:04 | Inpatient (IN) | payer MEDICARE, MEDICAID ==
[2019-04-10] MEDS ORDERED: Sodium Chloride 0.9% 10 ML Syringe FLUSH PRN (11:46)
[2019-04-10] MEDS ORDERED: Furosemide 40 MG/4 ML VIAL IVPUSH ONE (11:47)
--- NOTE | 2019-04-10 11:53 | EDM.PDOC ---
<Jacob Coronado - Last Filed: 04/10/19 14:02> ED HPI GENERAL MEDICAL PROBLEM - General Chief Complaint: General Stated Complaint: LOW HEMOGLOBIN Time Seen by Provider: 04/10/19 11:18 Source of Information: Reports: Patient, [facility] Records History Limitations: Reports: No Limitations - History of Present Illness INITIAL COMMENTS - FREE TEXT/NARRATIVE: 63 year old female who presents to the ED from [facility] with altered lab values. Pt had routine lab work drawn this morning which revealed that her hemoglobin is 7.8 and Na is 123. Pt also has a three pound weight gain in the last three days. [facility] is wondering if the patient is not being compliant with fluid restriction. Bilateral Shoulder Pain Score (Numeric/FACES): 10 - Related Data Allergies Allergy/AdvReac Type Severity Reaction Status Date / Time carbamazepine [From Tegretol] Allergy Cannot Verified 04/10/19 11:26 Remember ezetimibe [From Zetia] Allergy Cannot Verified 04/10/19 11:26 Remember haloperidol AdvReac Seizures Verified 04/10/19 11:26 trifluoperazine HCl AdvReac Seizures Verified 04/10/19 11:26 [From Stelazine] asorbic acid Allergy Cannot Uncoded 04/10/19 11:26 Remember Home Meds: Home Meds Donepezil HCl 10 mg PO DAILY 02/07/18 [History] Lactobacillus Acidophilus [Acidophilus] 175 mg PO BID 02/07/18 [History] Levothyroxine [Synthroid] 88 mcg PO DAILY 02/07/18 [History] Pantoprazole [ProTONIX] 40 mg PO DAILY 02/07/18 [History] Memantine HCl [Namenda] 10 mg PO BID 02/11/18 [History] ARIPiprazole [Abilify] 2 mg PO BEDTIME 03/30/19 [History] Amoxicillin 1,000 mg PO BID #40 tab 03/30/19 [Rx] Betamethasone Cream 03/30/19 [History] Bisacodyl [Laxative] 10 mg PO DAILY PRN 03/30/19 [History] Carboxymethylcellulose Sodium [Refresh Tears] 1 drop EYEBOTH BEDTIME 03/30/19 [ History] Chlorhexidine 4% 03/30/19 [History] Cholecalciferol (Vitamin D3) [Vitamin D3] 2,000 unit PO DAILY 03/30/19 [History] Dorzolamide HCl/Timolol Maleat [Dorzolamide-Timolol Eye Drops] 1 drop EYEBOTH BID 03/30/19 [History] Econazole Cream 1% 1 applic TOP DAILY PRN 03/30/19 [History] Fenofibrate Nanocrystallized [Fenofibrate] 145 mg PO DAILY 03/30/19 [History] Ferrous Sulfate 325 mg PO DAILY 03/30/19 [History] Folic Acid 1 mg PO DAILY 03/30/19 [History] Hibclen Wash. MOWESA 03/30/19 [History] Levocarnitine (With Sugar) [Levocarnitine Soln] 100 mg PO BID 03/30/19 [History] Miconazole 1 applic TOP DAILY PRN 03/30/19 [History] Mirtazapine 7.5 mg PO BEDTIME 03/30/19 [History] Multivit-Min/FA/Lycopen/Lutein [Certavite Sr-Antioxidant Tab] 1 tab PO DAILY 04/07 [History] Mupirocin Oint [Bactroban Oint] 03/30/19 [History] Polyethylene Glycol 3350 [MiraLAX] 17 gm PO BID PRN 03/30/19 [History] Pyridoxine HCl (Vitamin B6) [Vitamin B-6] 50 mg PO DAILY 03/30/19 [History] Tacrolimus Anhydrous [Tacrolimus] 1 applic TOP BID 03/30/19 [History] cloZAPine [Clozapine] 200 mg PO DAILY 03/30/19 [History] cloZAPine [Clozapine] 300 mg PO BEDTIME 03/30/19 [History] clonazePAM [Klonopin] 1 mg PO BID 03/30/19 [History] guaiFENesin [Robafen] 10 ml PO TID PRN 03/30/19 [History] Furosemide [Lasix] 40 mg PO DAILY 04/10/19 [History] Past Medical History HEENT History: Reports: Glaucoma Other HEENT History: wears glasses Cardiovascular History: Reports: High Cholesterol, Hypertension Respiratory History: Reports: COPD Gastrointestinal History: Reports: GERD, GI Bleed SHEEP SHEARER History: Reports: None Musculoskeletal History: Reports: None Neurological History: Reports: Seizure Other Neuro History: dementia Psychiatric History: Reports: Anxiety, Dementia, Depression, Schizophrenia Endocrine/Metabolic History: Reports: Hypothyroidism, Obesity/BMI 30+, Vitamin D Deficiency Hematologic History: Reports: Anemia Immunologic History: Reports: None Oncologic (Cancer) History: Reports: None Dermatologic History: Reports: Cellulitis, Eczema, Psoriasis, Other (See Below) Other Dermatologic History: skin infections to groin, under breasts and right ear. - Infectious Disease History Infectious Disease History: Reports: MRSA - Past Surgical History GI Surgical History: Reports: Appendectomy Social & Family History - Family History Family Medical History: Noncontributory Cardiac: Reports: Pacemaker - Tobacco Use Smoking Status *Q: Never Smoker - Caffeine Use Caffeine Use: Reports: None Other Caffeine Use: reports to drink 2 cups of coffee a week, 2 cups of tea a week and a can of diet coke daily. - Recreational Drug Use Recreational Drug Use: No - Living Situation & Occupation Living situation: Reports: Single, with Family (Mother) Occupation: Unemployed ED ROS GENERAL - Review of Systems Review Of Systems: See Below Constitutional: Reports: Weight Gain (3 lbs in the last three days) HEENT: Reports: No Symptoms Respiratory: Reports: Shortness of Breath. Denies: Wheezing, Pleuritic Chest Pain, Cough, Sputum Cardiovascular: Reports: Edema (4+ to bilateral lower extremities, orbital edema ). Denies: Lightheadedness, Syncope Endocrine: Reports: No Symptoms GI/Abdominal: Reports: Abdominal Pain (tenderness to bilateral lower quadrants) . Denies: Constipation, Diarrhea : Reports: No Symptoms Musculoskeletal: Reports: Shoulder Pain (bilateral shoulder pain-she describes it as shearing/tearing) Skin: Reports: Other (eczema type rash to scalp and ears) Neurological: Reports: No Symptoms. Denies: Confusion, Dizziness, Headache Psychiatric: Reports: No Symptoms Hematologic/Lymphatic: Reports: Anemia Immunologic: Reports: No Symptoms ED EXAM, GENERAL - Physical Exam Exam: See Below Exam Limited By: No Limitations General Appearance: Alert, WD/WN, No Apparent Distress Ears: Other (yellow drg noted to external ears due to eczema type rash) Nose: Normal Inspection, Normal Mucosa Throat/Mouth: Normal Inspection, Normal Lips, Normal Voice, Other (rotten teeth) Head: Atraumatic, Normocephalic Neck: Normal Inspection, Supple Respiratory/Chest: No Respiratory Distress, No Accessory Muscle Use, Chest Non- Tender, Crackles. No: Lungs Clear Cardiovascular: Regular Rate, Rhythm, No Murmur. No: No Edema (4+ edema to bilateral lower extremities and face) GI/Abdominal: Normal Bowel Sounds, Soft, Tender (tenderness to bilateral lower quadrant) (Female) Exam: Deferred Rectal (Female) Exam: Deferred Back Exam: Normal Inspection, Full Range of Motion Extremities: Non-Tender, Pedal Edema Neurological: Alert, Oriented, No Motor/Sensory Deficits Psychiatric: Normal Affect, Normal Mood Skin Exam: Warm, Normal Color, Rash (eczema type rash to scalp and ears) Course - Vital Signs Last Recorded V/S: Last Vital Signs Temp 99.3 F 04/10/19 11:29 Pulse 81 04/10/19 11:29 Resp 16 04/10/19 11:29 BP 103/50 L 04/10/19 11:29 Pulse Ox 94 L 04/10/19 11:29 - Orders/Labs/Meds Orders: Active Orders 24 hr Category Date Time Status EKG 12 Lead [EKG Documentation Completion] [RC] STAT Care 04/10/19 11:46 Active Peripheral IV Care [RC] . DIRECTED Care 04/10/19 11:47 Active CBC WITH MANUAL DIFF [HEME] Stat Lab 04/10/19 11:45 Ordered COMPREHENSIVE METABOLIC PN,CMP [CHEM] Stat Lab 04/10/19 11:45 Ordered PRO B-TYPE NATRIUR PEPT,BNPPRO [CHEM] Stat Lab 04/10/19 11:46 Ordered TROPONIN I [CHEM] Stat Lab 04/10/19 11:45 Ordered Sodium Chloride 0.9% [Saline Flush] Med 04/10/19 11:46 Active 10 ml FLUSH ASDIRECTED PRN Peripheral IV Insertion Adult [OM.PC] Routine Oth 04/10/19 11:46 Ordered Medication Orders Sodium Chloride (Saline Flush) 10 ml FLUSH ASDIRECTED PRN PRN Reason: Keep Vein Open Last Admin: 04/10/19 13:20 Dose: 10 ml Labs: Laboratory Tests 04/10/19 Range/Units 11:30 Urine Color Yellow (Yellow) Urine Appearance Clear (Clear) Urine pH 7.5 (5.0-8.0) Ur Specific [place] 1.015 (1.005-1.030) Urine Protein Negative (Negative) Urine Glucose (UA) Negative (Negative) Urine Ketones Negative (Negative) Urine Occult Blood Trace-intact H (Negative) Urine Nitrite Negative (Negative) Urine Bilirubin Negative (Negative) Urine Urobilinogen 0.2 (0.2-1.0) Ur Leukocyte Esterase 1+ H (Negative) Urine RBC 5-10 H (0-5) /hpf Urine WBC 5-10 H (0-5) /hpf Ur Squamous Epith Cells 10-20 H (0-5) /hpf Amorphous Sediment Few H (NOT SEEN) /hpf Urine Bacteria Few (FEW) /hpf Urine Mucus Not seen (FEW) /hpf Meds: Medications Generic Name Dose Route Start Last Admin Trade Name Freq PRN Reason Stop Dose Admin Sodium Chloride 10 ml 04/10/19 11:46 04/10/19 13:20 Saline Flush FLUSH 10 ml ASDIRECTED PRN Administration Keep Vein Open Discontinued Medications Generic Name Dose Route Start Last Admin Trade Name Freq PRN Reason Stop Dose Admin Furosemide 40 mg 04/10/19 11:47 04/10/19 13:17 Lasix IVPUSH 04/10/19 11:48 40 mg NOW ONE Administration Departure - Departure Disposition: Refer to Observation Clinical Impression: Skin rash, Hyponatremia, Peripheral edema Schizophrenia Qualifiers: Schizophrenia type: paranoid schizophrenia Qualified Code(s): F20.0 - Paranoid schizophrenia Anemia Qualifiers: Anemia type: unspecified type Qualified Code(s): D64.9 - Anemia, unspecified CHF (congestive heart failure) Qualifiers: Heart failure type: other Qualified Code(s): I50.9 - Heart failure, unspecified - Discharge Information Referrals: Nikko Stevens MD [Primary Care Provider] - Forms: ED Department Discharge <Jacob Dennis - Last Filed: 04/10/19 15:14> Course - Re-Assessments/Exams Free Text/Narrative Re-Assessment/Exam: 04/10/19 15:08 I examined the patient myself and I agree with Oscar's assessment and plan. I ordered an IV, labs, CXR and lasix 40mg IV. Her CXR looks good. Her UA shows no UTI. She had over 1,500mls output. We could not get an IV so our [employer]PER[employer] fusion analyst came to put an IV in. We could not get any blood for labs. She was poked over 12 times and she is done now. She would not let me do any more labs. I did a rectal on her and she was guiac negative. I feel she needs to be admitted but I cannot get all the labs I want for admission. I think if she has a break she may let us try again. I called Dr Burden and he reluctantly agreed to the admission for the fact that we do not have all the information. Departure - Departure Time of Disposition: 15:20 Condition: Fair
--- NOTE | 2019-04-10 13:43 | CR ---
Chest: Portable view of the chest was obtained. Comparison: Prior chest x-ray of 03/30/19. Heart size appears within normal limits for portable technique. Upper mediastinum is within normal limits. Lungs show no acute parenchymal change. Bony structures are grossly intact. Pressure: 1. Nothing acute is appreciated on portable chest x-ray. Diagnostic code #1
[2019-04-10] MEDS ORDERED: Acetaminophen 325 MG Tab PO PRN (16:54)
[2019-04-10] MEDS ORDERED: Ondansetron 4 MG/2 ML SDV IV PRN (16:54)
--- NOTE | 2019-04-10 17:13 | PCM.HP.2 ---
H&P History of Present Illness - General Date of Service: 04/10/19 Admit Problem/Dx: Admission Diagnosis/Problem Admission Diagnosis/Problem Anemia - History of Present Illness Initial Comments - Free Text/Narative: 63-year-old female with history of schizophrenia, dementia, hypertensive heart disease with heart failure, psoriasis, chronic hyponatremia, COPD, and multiple other medical problems was brought to the emergency room at recommendations of her primary care provider because of a low hemoglobin of 7.8. Patient is a very poor historian, therefore history mainly obtained through [facility], some patient interview, and emergency providers note. Patient is apparently gained 3 pounds of weight over the last 3 days. She denies any shortness of breath. She has not been compliant with her fluid restriction and lab work drawn prior to emergency room visit today showed a sodium of 127. Her sodium on February 27, 2019 was 123, March 30, 2019 131 here in the emergency room, and today 127. Hemoglobin in February was 9.3 and on March 30 was 8.0. Today it is 7.8. Patient has had increasing lower extremity edema and has been having her legs wrapped with Robel wraps. Anemia is normochromic and normocytic. She has a history of chronic iron deficiency anemia. In the emergency room blood work was attempted, but after multiple tries they' re unable to get any blood. UA was performed, but no urine osmolality or urine sodium was done. Patient was given Lasix over 5 hours prior to admission. She is on chronic Lasix therapy. ECG showed her rate of 76 bpm. Normal sinus rhythm. First-degree AV block. Otherwise normal ECG. Chest x-ray showed no acute changes. Rectal exam was negative for guaiac blood Bilateral Shoulder Pain Score (Numeric/FACES): 10 - Related Data Allergies/Adverse Reactions: Allergies Allergy/AdvReac Type Severity Reaction Status Date / Time carbamazepine [From Tegretol] Allergy Cannot Verified 04/10/19 11:26 Remember ezetimibe [From Zetia] Allergy Cannot Verified 04/10/19 11:26 Remember haloperidol AdvReac Seizures Verified 04/10/19 11:26 trifluoperazine HCl AdvReac Seizures Verified 04/10/19 11:26 [From Stelazine] asorbic acid Allergy Cannot Uncoded 04/10/19 11:26 Remember Home Medications: Home Meds Donepezil HCl 10 mg PO DAILY 02/07/18 [History] Lactobacillus Acidophilus [Acidophilus] 175 mg PO BID 02/07/18 [History] Levothyroxine [Synthroid] 88 mcg PO DAILY 02/07/18 [History] Pantoprazole [ProTONIX] 40 mg PO DAILY 02/07/18 [History] Memantine HCl [Namenda] 10 mg PO BID 02/11/18 [History] ARIPiprazole [Abilify] 2 mg PO BEDTIME 03/30/19 [History] Carboxymethylcellulose Sodium [Refresh Tears] 1 drop EYEBOTH BEDTIME 03/30/19 [ History] Chlorhexidine 4% 1 applic TOP DAILY 03/30/19 [History] Cholecalciferol (Vitamin D3) [Vitamin D3] 2,000 unit PO DAILY 03/30/19 [History] Dorzolamide HCl/Timolol Maleat [Dorzolamide-Timolol Eye Drops] 1 drop EYEBOTH BID 03/30/19 [History] Econazole Cream 1% 1 applic TOP DAILY PRN 03/30/19 [History] Fenofibrate Nanocrystallized [Fenofibrate] 145 mg PO DAILY 03/30/19 [History] Ferrous Sulfate 325 mg PO DAILY 03/30/19 [History] Folic Acid 1 mg PO DAILY 03/30/19 [History] Hibclen Wash. 1 applic TOP [place] 03/30/19 [History] Levocarnitine (With Sugar) [Levocarnitine Soln] 100 mg PO BID 03/30/19 [History] Miconazole 1 applic TOP DAILY PRN 03/30/19 [History] Mirtazapine 7.5 mg PO BEDTIME 03/30/19 [History] Mupirocin Oint [Bactroban Oint] 1 applic TOP BID 03/30/19 [History] Polyethylene Glycol 3350 [MiraLAX] 17 gm PO BID PRN 03/30/19 [History] Pyridoxine HCl (Vitamin B6) [Vitamin B-6] 50 mg PO DAILY 03/30/19 [History] Tacrolimus Anhydrous [Tacrolimus] 1 applic TOP BID 03/30/19 [History] cloZAPine [Clozapine] 200 mg PO DAILY 03/30/19 [History] cloZAPine [Clozapine] 300 mg PO BEDTIME 03/30/19 [History] clonazePAM [Klonopin] 1 mg PO BID 03/30/19 [History] guaiFENesin [Robafen] 10 ml PO TID PRN 03/30/19 [History] Furosemide [Lasix] 40 mg PO DAILY 04/10/19 [History] Past Medical History HEENT History: Reports: Glaucoma Other HEENT History: wears glasses Cardiovascular History: Reports: High Cholesterol, Hypertension Respiratory History: Reports: COPD Gastrointestinal History: Reports: GERD, GI Bleed 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 - Infectious Disease History Infectious Disease History: Reports: MRSA - Past Surgical History GI Surgical History: Reports: Appendectomy Social & Family History - Family History Family Medical History: Noncontributory Cardiac: Reports: Pacemaker - Tobacco Use Smoking Status *Q: Never Smoker - Caffeine Use Caffeine Use: Reports: None Other Caffeine Use: reports to drink 2 cups of coffee a week, 2 cups of tea a week and a can of diet coke daily. - Recreational Drug Use Recreational Drug Use: No - Living Situation & Occupation Living situation: Reports: Single, with Family (Mother) Occupation: Unemployed H&P Review of Systems - Review of Systems: Review Of Systems: Comprehensive ROS is negative, except as noted in HPI. Exam - Exam Exam: See Below - Vital Signs Vital Signs: Last Vital Signs Temp 99.3 F 04/10/19 11:29 Pulse 81 04/10/19 11:29 Resp 16 04/10/19 11:29 BP 103/50 L 04/10/19 11:29 Pulse Ox 94 L 04/10/19 11:29 Weight: 201 lb - Exam Quality Assessment: No: Supplemental Oxygen General: Alert, Oriented HEENT: Conjunctiva Clear, Mucosa Moist & [place], Other (Significant scalp psoriasis with flaking and discharge) Lungs: Clear to Auscultation, Normal Respiratory Effort Cardiovascular: Regular Rate, Regular Rhythm GI/Abdominal Exam: Normal Bowel Sounds, Soft, Non-Tender, No Distention Extremities: Pedal Edema (4+ lower extremity pitting edema) Skin: Warm, Other (Scalp as above) Neuro Extensive - Motor, Sensory, Reflexes: CN II-XII Intact Psychiatric: Alert - Patient Data Lab Results Last 24 hrs: Laboratory Results - last 24 hr 04/10/19 Range/Units 11:30 Urine Color Yellow (Yellow) Urine Appearance Clear (Clear) Urine pH 7.5 (5.0-8.0) Ur Specific [place] 1.015 (1.005-1.030) Urine Protein Negative (Negative) Urine Glucose (UA) Negative (Negative) Urine Ketones Negative (Negative) Urine Occult Blood Trace-intact H (Negative) Urine Nitrite Negative (Negative) Urine Bilirubin Negative (Negative) Urine Urobilinogen 0.2 (0.2-1.0) Ur Leukocyte Esterase 1+ H (Negative) Urine RBC 5-10 H (0-5) /hpf Urine WBC 5-10 H (0-5) /hpf Ur Squamous Epith Cells 10-20 H (0-5) /hpf Amorphous Sediment Few H (NOT SEEN) /hpf Urine Bacteria Few (FEW) /hpf Urine Mucus Not seen (FEW) /hpf Problem List Initiated/Reviewed/Updated: Yes Orders Last 24hrs: Active Orders 24 hr Category Date Time Status Patient Status [ADT] Routine ADT 04/10/19 15:19 Active Antiembolic Devices [RC] PER UNIT ROUTINE Care 04/10/19 16:57 Active EKG 12 Lead [EKG Documentation Completion] [RC] STAT Care 04/10/19 11:46 Active Oxygen Therapy [RC] PRN Care 04/10/19 16:54 Active Peripheral IV Care [RC] . DIRECTED Care 04/10/19 11:47 Active Up With Assistance [RC] ASDIRECTED Care 04/10/19 16:54 Active VTE/DVT Education [RC] PER UNIT ROUTINE Care 04/10/19 16:54 Active Vital Signs [RC] Q4H Care 04/10/19 16:54 Active Fluid Restriction [DIET] Diet 04/10/19 Dinner Active Regular Diet [DIET] Diet 04/10/19 Dinner Active CBC WITH AUTO DIFF [HEME] AM Lab 04/11/19 05:11 Ordered CBC WITH AUTO DIFF [HEME] AM Lab 04/12/19 05:11 Ordered CBC WITH AUTO DIFF [HEME] AM Lab 04/13/19 05:11 Ordered CBC WITH MANUAL DIFF [HEME] Stat Lab 04/10/19 11:45 Ordered COMPREHENSIVE METABOLIC PN,CMP [CHEM] AM Lab 04/11/19 05:11 Ordered COMPREHENSIVE METABOLIC PN,CMP [CHEM] AM Lab 04/12/19 05:11 Ordered COMPREHENSIVE METABOLIC PN,CMP [CHEM] AM Lab 04/13/19 05:11 Ordered COMPREHENSIVE METABOLIC PN,CMP [CHEM] Stat Lab 04/10/19 11:45 Ordered MAGNESIUM [CHEM] AM Lab 04/11/19 05:11 Ordered MAGNESIUM [CHEM] AM Lab 04/12/19 05:11 Ordered MAGNESIUM [CHEM] AM Lab 04/13/19 05:11 Ordered PRO B-TYPE NATRIUR PEPT,BNPPRO [CHEM] Stat Lab 04/10/19 11:46 Ordered TROPONIN I [CHEM] Stat Lab 04/10/19 11:45 Ordered Acetaminophen [Tylenol] Med 04/10/19 16:54 Active 650 mg PO Q4H PRN Ondansetron [Zofran] Med 04/10/19 16:54 Active 4 mg IV Q4H PRN Sodium Chloride 0.9% [Saline Flush] Med 04/10/19 11:46 Active 10 ml FLUSH ASDIRECTED PRN Peripheral IV Insertion Adult [OM.PC] Routine Oth 04/10/19 11:46 Ordered Sequential Compression Device [OM.PC] Per Unit Routine Oth 04/10/19 16:55 Ordered Resuscitation Status Routine Resus Stat 04/10/19 16:54 Ordered Medication Orders Acetaminophen (Tylenol) 650 mg PO Q4H PRN PRN Reason: Pain (Mild 1-3)/fever Ondansetron HCl (Zofran) 4 mg IV Q4H PRN PRN Reason: Nausea/Vomiting Sodium Chloride (Saline Flush) 10 ml FLUSH ASDIRECTED PRN PRN Reason: Keep Vein Open Last Admin: 04/10/19 13:20 Dose: 10 ml Assessment/Plan Comment:: Assessment * Normal chromic, normocytic anemia * History of iron deficiency anemia * Hemoglobin 11 days ago 8.0 today at 7.8 * Hemoglobin February 27 9.3 * Rectal exam from emergency room provider was negative for Hemoccult blood * Patient has a history of schizophrenia and this likely not following her fluid restriction. Some of the anemia is dilutional. * Based on indices this may be more due to anemia of chronic disease. Medications may also be contributing to anemia. * On home multivitamin supplement with folic acid and iron once a day * Acute on chronic CHF * Unknown type since we do not have an echo report available * We will not be able to do an echocardiogram on the weekend. * It appears she has not been following her fluid restriction * Acute on Chronic Hyponatremia - likely hypervolemic secondary to CHF * Unable to get plasma osmolality * Urine osmolality and urine sodium not performed before Lasix given * Sodium is actually improved from 11 days ago from 123 and now 127 * Hypoalbuminemia * February 27, 2019 albumin was 1.8. Patient was given albumin in the emergency room. * This may be worsening lower extremity edema. * 4+ lower extremity pitting edema * History of schizophrenia, dementia, heart failure with hypertension, psoriasis , hypothyroidism, COPD, and multiple other chronic medical issues Plan * Admit to the medical floor on telemetry * Retry getting CBC, CMP, BNP * Fluid restriction of 1200 mL a day * Reconciled meds and continue topical treatment for psoriasis * Follow hemoglobin closely. Avoid giving blood products if possible. Hemoglobin may improve with treatment of the underlying CHF. * Continue diuresis: Await current lab work then give Lasix 40 mg tonight and repeat in the morning IV * Anemia workup with iron, total iron-binding capacity, folic acid, and B12 * Encourage food over liquids. Patient has requested a liquid supper. May benefit from Dietary consult while in the hospital, but may not be available on the weekend. * If here on Saturday get echocardiogram. * CODE STATUS: full code * VTE prophylaxis with SCDs * Length of stay is likely 2-3 days. - Mortality Measure Prognosis:: Good
[2019-04-10] MEDS ORDERED: guaiFENesin 100 MG/5 ML Soln 10 ML UD Cup PO PRN (19:12)
[2019-04-10] MEDS ORDERED: Miconazole 2% Crm 42.5 GM Tube TOP PRN (19:12)
[2019-04-10] MEDS: ClonazePAM 1 MG Tab PO SCH (21:10)
[2019-04-10] MEDS: Saccharomyces Boulardii (Probiotic) 250 MG Cap PO SCH (21:11)
[2019-04-10] MEDS: Memantine 10 MG Tab PO SCH (21:11)
[2019-04-10] MEDS: Donepezil 10 MG Tab PO SCH (21:11)
[2019-04-10] MEDS: Mupirocin Oint 22 GM Tube TOP SCH (21:12)
[2019-04-10] MEDS: cloZAPine 100 MG Tab PO SCH (21:22)
[2019-04-10] MEDS: Dorzolamide/Timolol 2%-0.5% Ophth Soln 10 ML Bottle EYEBOTH SCH (21:23)
[2019-04-10] MEDS: Carboxymethylcellulose Sodium 1% Ophth Gel 15 ML Bottle EYEBOTH SCH (21:24)
[2019-04-10] MEDS: Mirtazapine 15 MG Tab PO SCH (21:24)
[2019-04-11] MEDS: Levothyroxine 88 MCG Tab PO SCH (06:54)
[2019-04-11] MEDS: Pantoprazole 40 MG Tab.CR PO SCH (06:54)
[2019-04-11] MEDS ORDERED: Potassium Chloride 20 MEQ Tab.ER PO ONE (07:59)
[2019-04-11] MEDS: Vitamin B6-pyridOXINE 50 MG Tab PO SCH (08:56)
[2019-04-11] MEDS: Saccharomyces Boulardii (Probiotic) 250 MG Cap PO SCH ×2 (08:56→21:08)
[2019-04-11] MEDS: Cholecalciferol (Vitamin D3) 25 MCG Tab PO SCH (08:56)
[2019-04-11] MEDS: Memantine 10 MG Tab PO SCH ×2 (08:56→21:07)
[2019-04-11] MEDS: Multivitamins,Therapeutic Tab PO SCH (08:56)
[2019-04-11] MEDS: Fenofibrate Nanocrystallized 145 MG Tab PO SCH (08:57)
[2019-04-11] MEDS: Dorzolamide/Timolol 2%-0.5% Ophth Soln 10 ML Bottle EYEBOTH SCH ×2 (08:57→21:10)
[2019-04-11] MEDS: Furosemide 40 MG Tab PO SCH (08:57)
[2019-04-11] MEDS: Ferrous Sulfate 324 MG Tab.EC PO SCH (08:57)
[2019-04-11] MEDS: ClonazePAM 1 MG Tab PO SCH ×2 (08:57→21:08)
[2019-04-11] MEDS: cloZAPine 100 MG Tab PO SCH ×2 (08:57→21:08)
[2019-04-11] MEDS: Folic Acid 1 MG Tab PO SCH (08:57)
[2019-04-11] MEDS: Mupirocin Oint 22 GM Tube TOP SCH ×2 (08:58→21:09)
[2019-04-11] MEDS ORDERED: MICONAZOLE TOP PRN (09:00)
[2019-04-11] MEDS: TACROLIMUS 0.1% TOP SCH ×3 (09:49→21:11)
[2019-04-11] MEDS: LEVOCARNITINE PO SCH ×3 (09:49→21:11)
--- NOTE | 2019-04-11 10:34 | PCM.PN ---
- General Info Date of Service: 04/11/19 Admission Dx/Problem (Free Text): Admission Diagnosis/Problem Admission Diagnosis/Problem Anemia Subjective Update: Pt. states that she is feeling well, but would like to have her fluid restriction increases to 2.000 ml/day. I explained that she will need to continue on the fluid restriction of 1,200 ml/day at least another day. She ate a full breakfast. Functional Status: Reports: Pain Controlled - Review of Systems General: Reports: No Symptoms HEENT: Reports: No Symptoms Pulmonary: Reports: No Symptoms Cardiovascular: Reports: No Symptoms Gastrointestinal: Reports: No Symptoms Skin: Reports: Other (scalp rash) - Patient Data Vitals - Most Recent: Last Vital Signs Temp 98.4 F 04/11/19 07:31 Pulse 87 04/11/19 07:31 Resp 18 04/11/19 07:31 BP 114/51 L 04/11/19 07:31 Pulse Ox 97 04/11/19 07:31 Weight - Most Recent: 190 lb 14.4 oz I&O - Last 24 Hours: Intake & Output 04/10/19 04/11/19 04/11/19 22:59 06:59 14:59 Intake Total 150 150 Output Total 9256 424 2492 Balance -1900 -750 -1600 Lab Results Last 24 Hours: Laboratory Results - last 24 hr 04/10/19 04/10/19 04/10/19 Range/Units 11:30 16:40 17:55 WBC 14.32 H (3.98-10.04) K/mm3 RBC 3.22 L (3.98-5.22) M/mm3 Hgb 9.0 L (11.2-15.7) gm/dl Hct 28.0 L (34.1-44.9) % MCV 87.0 (79.4-94.8) fl MCH 28.0 (25.6-32.2) pg MCHC 32.1 L (32.2-35.5) g/dl RDW Std Deviation 60.7 H (36.4-46.3) fL Plt Count 525 H D (182-369) K/mm3 MPV 8.7 L (9.4-12.3) fl Neut % (Auto) (34.0-71.1) % Lymph % (Auto) (19.3-51.7) % [place] % (Auto) (4.7-12.5) % Eos % (Auto) (0.7-5.8) Baso % (Auto) (0.1-1.2) % Neut # (Auto) (1.56-6.13) K/mm3 Lymph # (Auto) (1.18-3.74) K/mm3 [place] # (Auto) (0.24-0.36) K/mm3 Eos # (Auto) (0.04-0.36) K/mm3 Baso # (Auto) (0.01-0.08) K/mm3 Neutrophils % (Manual) 67 H (40-60) % Band Neutrophils % 1 (0-10) % Lymphocytes % (Manual) 18 L (20-40) % Atypical Lymphs % 0 % Monocytes % (Manual) 5 (2-10) % Eosinophils % (Manual) 7 H (0.7-5.8) % Basophils % (Manual) 2 H (0.1-1.2) Manual Slide Review Toxic Granulation 2+ moderate Platelet Estimate Increased Plt Morphology Comment See note Hypochromasia Few Anisocytosis 2+ Macrocytosis 1+ slight Ovalocytes 1+ slight RBC Morph Comment Not Reportable Sodium (136-145) mEq/L Potassium (3.5-5.1) mEq/L Chloride (98-107) mEq/L Carbon Dioxide (21-32) mEq/L Anion Gap (5-15) BUN (7-18) mg/dL Creatinine (0.55-1.02) mg/dL Est Cr Clr Drug Dosing mL/min Estimated GFR (MDRD) (>60) mL/min BUN/Creatinine Ratio (14-18) Glucose (80-115) mg/dL Calcium (8.5-10.1) mg/dL Magnesium (1.8-2.4) mg/dl Iron (50-170) ug/dL TIBC (100-400) ug/dL % Saturation (20-55) % Transferrin (202-364) mg/dL Total Bilirubin (0.2-1.0) mg/dL AST (15-37) U/L ALT (14-59) U/L Alkaline Phosphatase (46-116) U/L Troponin I (0.00-0.056) ng/mL NT-Pro-B Natriuret Pep (0-125) pg/mL Total Protein (6.4-8.2) g/dl Albumin (3.4-5.0) g/dl Globulin gm/dL Albumin/Globulin Ratio (1-2) Vitamin B12 (193-986) pg/ml Folate (8.6-58.9) ng/mL Urine Color Yellow (Yellow) Urine Appearance Clear (Clear) Urine pH 7.5 (5.0-8.0) Ur Specific [place] 1.015 (1.005-1.030) Urine Protein Negative (Negative) Urine Glucose (UA) Negative (Negative) Urine Ketones Negative (Negative) Urine Occult Blood Trace-intact H (Negative) Urine Nitrite Negative (Negative) Urine Bilirubin Negative (Negative) Urine Urobilinogen 0.2 (0.2-1.0) Ur Leukocyte Esterase 1+ H (Negative) Urine RBC 5-10 H (0-5) /hpf Urine WBC 5-10 H (0-5) /hpf Ur Squamous Epith Cells 10-20 H (0-5) /hpf Amorphous Sediment Few H (NOT SEEN) /hpf Urine Bacteria Few (FEW) /hpf Urine Mucus Not seen (FEW) /hpf MRSA (PCR) Positive H 04/10/19 04/10/19 04/10/19 Range/Units 17:55 17:55 17:55 WBC (3.98-10.04) K/mm3 RBC (3.98-5.22) M/mm3 Hgb (11.2-15.7) gm/dl Hct (34.1-44.9) % MCV (79.4-94.8) fl MCH (25.6-32.2) pg MCHC (32.2-35.5) g/dl RDW Std Deviation (36.4-46.3) fL Plt Count (182-369) K/mm3 MPV (9.4-12.3) fl Neut % (Auto) (34.0-71.1) % Lymph % (Auto) (19.3-51.7) % [place] % (Auto) (4.7-12.5) % Eos % (Auto) (0.7-5.8) Baso % (Auto) (0.1-1.2) % Neut # (Auto) (1.56-6.13) K/mm3 Lymph # (Auto) (1.18-3.74) K/mm3 [place] # (Auto) (0.24-0.36) K/mm3 Eos # (Auto) (0.04-0.36) K/mm3 Baso # (Auto) (0.01-0.08) K/mm3 Neutrophils % (Manual) (40-60) % Band Neutrophils % (0-10) % Lymphocytes % (Manual) (20-40) % Atypical Lymphs % % Monocytes % (Manual) (2-10) % Eosinophils % (Manual) (0.7-5.8) % Basophils % (Manual) (0.1-1.2) Manual Slide Review Toxic Granulation Platelet Estimate Plt Morphology Comment Hypochromasia Anisocytosis Macrocytosis Ovalocytes RBC Morph Comment Sodium 125 L (136-145) mEq/L Potassium 3.6 (3.5-5.1) mEq/L Chloride 91 L (98-107) mEq/L Carbon Dioxide 30 (21-32) mEq/L Anion Gap 7.6 (5-15) BUN 13 (7-18) mg/dL Creatinine 1.1 H (0.55-1.02) mg/dL Est Cr Clr Drug Dosing 47.10 mL/min Estimated GFR (MDRD) 50 (>60) mL/min BUN/Creatinine Ratio 11.8 L (14-18) Glucose 104 (80-115) mg/dL Calcium 8.1 L (8.5-10.1) mg/dL Magnesium (1.8-2.4) mg/dl Iron 24 L (50-170) ug/dL TIBC 274 (100-400) ug/dL % Saturation 9 L (20-55) % Transferrin 219 (202-364) mg/dL Total Bilirubin 0.2 (0.2-1.0) mg/dL AST 15 (15-37) U/L ALT 20 (14-59) U/L Alkaline Phosphatase 86 (46-116) U/L Troponin I < 0.017 (0.00-0.056) ng/mL NT-Pro-B Natriuret Pep 996 H (0-125) pg/mL Total Protein 6.5 (6.4-8.2) g/dl Albumin 2.1 L (3.4-5.0) g/dl Globulin 4.4 gm/dL Albumin/Globulin Ratio 0.5 L (1-2) Vitamin B12 631 (193-986) pg/ml Folate 62.8 H (8.6-58.9) ng/mL Urine Color (Yellow) Urine Appearance (Clear) Urine pH (5.0-8.0) Ur Specific [place] (1.005-1.030) Urine Protein (Negative) Urine Glucose (UA) (Negative) Urine Ketones (Negative) Urine Occult Blood (Negative) Urine Nitrite (Negative) Urine Bilirubin (Negative) Urine Urobilinogen (0.2-1.0) Ur Leukocyte Esterase (Negative) Urine RBC (0-5) /hpf Urine WBC (0-5) /hpf Ur Squamous Epith Cells (0-5) /hpf Amorphous Sediment (NOT SEEN) /hpf Urine Bacteria (FEW) /hpf Urine Mucus (FEW) /hpf MRSA (PCR) 04/11/19 04/11/19 Range/Units 06:43 06:43 WBC 10.17 H (3.98-10.04) K/mm3 RBC 2.68 L (3.98-5.22) M/mm3 Hgb 7.5 L D (11.2-15.7) gm/dl Hct 23.2 L (34.1-44.9) % MCV 86.6 (79.4-94.8) fl MCH 28.0 (25.6-32.2) pg MCHC 32.3 (32.2-35.5) g/dl RDW Std Deviation 59.4 H (36.4-46.3) fL Plt Count 418 H D (182-369) K/mm3 MPV 8.7 L (9.4-12.3) fl Neut % (Auto) 59.5 (34.0-71.1) % Lymph % (Auto) 10.7 L (19.3-51.7) % [place] % (Auto) 15.0 H (4.7-12.5) % Eos % (Auto) 14.1 H (0.7-5.8) Baso % (Auto) 0.4 (0.1-1.2) % Neut # (Auto) 6.05 (1.56-6.13) K/mm3 Lymph # (Auto) 1.09 L (1.18-3.74) K/mm3 [place] # (Auto) 1.53 H (0.24-0.36) K/mm3 Eos # (Auto) 1.43 H (0.04-0.36) K/mm3 Baso # (Auto) 0.04 (0.01-0.08) K/mm3 Neutrophils % (Manual) (40-60) % Band Neutrophils % (0-10) % Lymphocytes % (Manual) (20-40) % Atypical Lymphs % % Monocytes % (Manual) (2-10) % Eosinophils % (Manual) (0.7-5.8) % Basophils % (Manual) (0.1-1.2) Manual Slide Review Abnormal smear Toxic Granulation Platelet Estimate Plt Morphology Comment Hypochromasia Anisocytosis Macrocytosis Ovalocytes RBC Morph Comment Sodium 127 L (136-145) mEq/L Potassium 3.3 L (3.5-5.1) mEq/L Chloride 94 L (98-107) mEq/L Carbon Dioxide 31 (21-32) mEq/L Anion Gap 5.3 (5-15) BUN 11 (7-18) mg/dL Creatinine 0.9 (0.55-1.02) mg/dL Est Cr Clr Drug Dosing 57.57 mL/min Estimated GFR (MDRD) > 60 (>60) mL/min BUN/Creatinine Ratio 12.2 L (14-18) Glucose 96 (80-115) mg/dL Calcium 7.5 L (8.5-10.1) mg/dL Magnesium 1.8 (1.8-2.4) mg/dl Iron (50-170) ug/dL TIBC (100-400) ug/dL % Saturation (20-55) % Transferrin (202-364) mg/dL Total Bilirubin 0.3 (0.2-1.0) mg/dL AST 8 L (15-37) U/L ALT 16 (14-59) U/L Alkaline Phosphatase 60 (46-116) U/L Troponin I (0.00-0.056) ng/mL NT-Pro-B Natriuret Pep (0-125) pg/mL Total Protein 5.1 L (6.4-8.2) g/dl Albumin 1.7 L (3.4-5.0) g/dl Globulin 3.4 gm/dL Albumin/Globulin Ratio 0.5 L (1-2) Vitamin B12 (193-986) pg/ml Folate (8.6-58.9) ng/mL Urine Color (Yellow) Urine Appearance (Clear) Urine pH (5.0-8.0) Ur Specific [place] (1.005-1.030) Urine Protein (Negative) Urine Glucose (UA) (Negative) Urine Ketones (Negative) Urine Occult Blood (Negative) Urine Nitrite (Negative) Urine Bilirubin (Negative) Urine Urobilinogen (0.2-1.0) Ur Leukocyte Esterase (Negative) Urine RBC (0-5) /hpf Urine WBC (0-5) /hpf Ur Squamous Epith Cells (0-5) /hpf Amorphous Sediment (NOT SEEN) /hpf Urine Bacteria (FEW) /hpf Urine Mucus (FEW) /hpf MRSA (PCR) Med Orders - Current: Current Medications Acetaminophen (Tylenol) 650 mg PO Q4H PRN PRN Reason: Pain (Mild 1-3)/fever Aripiprazole (Abilify) 2 mg PO BEDTIME [facility] Last Admin: 04/10/19 21:11 Dose: 2 mg Artificial Tears (Refresh Liquigel 1%) 0 ml EYEBOTH BEDTIME NAEL Last Admin: 04/10/19 21:24 Dose: 1 drop Cholecalciferol (Vitamin D3) 50 mcg PO DAILY [facility] Last Admin: 04/11/19 08:56 Dose: 50 mcg Clonazepam (Klonopin) 1 mg PO BID [facility] Last Admin: 04/11/19 08:57 Dose: 1 mg Clozapine (Clozapine) 200 mg PO DAILY [facility] Last Admin: 04/11/19 08:57 Dose: 200 mg Clozapine (Clozapine) 300 mg PO BEDTIME NAEL Last Admin: 04/10/19 21:22 Dose: 300 mg Donepezil HCl (Aricept) 10 mg PO BEDTIME NAEL Last Admin: 04/10/19 21:11 Dose: 10 mg Dorzolamide/Timolol (Cosopt 2%-0.5% Ophth Soln) 0 ml EYEBOTH BID [facility] Last Admin: 04/11/19 08:57 Dose: 1 drop Fenofibrate (Tricor) 145 mg PO DAILY NAEL Last Admin: 04/11/19 08:57 Dose: 145 mg Ferrous Sulfate (Ferrous Sulfate) 324 mg PO DAILY [facility] Last Admin: 04/11/19 08:57 Dose: 324 mg Folic Acid (Folic Acid) 1 mg PO DAILY [facility] Last Admin: 04/11/19 08:57 Dose: 1 mg Furosemide (Lasix) 40 mg PO DAILY [facility] Last Admin: 04/11/19 08:57 Dose: 40 mg Guaifenesin (Robitussin) 100 mg PO TID PRN PRN Reason: Cough Ferric Sodium Gluconate Complex 250 mg/ Sodium Chloride 120 mls @ 50 mls/hr IV ONETIME ONE Stop: 04/11/19 11:23 Last Admin: 04/11/19 09:49 Dose: 50 mls/hr Piperacillin Sod/Tazobactam (Sod 4.5 gm/ Sodium Chloride) 100 mls @ 25 mls/hr IV Q8H NAEL Piperacillin Sod/Tazobactam (Sod 4.5 gm/ Sodium Chloride) 100 mls @ 200 mls/hr IV ONETIME ONE Stop: 04/11/19 10:55 Levothyroxine Sodium (Synthroid) 88 mcg PO ACBREAKFAST [facility] Last Admin: 04/11/19 06:54 Dose: 88 mcg Memantine (Namenda) 10 mg PO BID [facility] Last Admin: 04/11/19 08:56 Dose: 10 mg Mirtazapine (Remeron) 7.5 mg PO BEDTIME [facility] Last Admin: 04/10/19 21:24 Dose: 7.5 mg Multivitamins (Thera) 1 each PO DAILY [facility] Last Admin: 04/11/19 08:56 Dose: 1 each Mupirocin (Bactroban Oint) 0 gm TOP BID [facility] Last Admin: 04/11/19 08:58 Dose: 1 applic Non-Formulary Medication (Hibclen Wash.) 1 applic TOP [place] [facility] Ondansetron HCl (Zofran) 4 mg IV Q4H PRN PRN Reason: Nausea/Vomiting Pantoprazole Sodium (Protonix) 40 mg PO DAILY@0700 [facility] Last Admin: 04/11/19 06:54 Dose: 40 mg Chlorhexidine 4% 0 each TOP BEDTIME [facility] Levocarnitine Soln (10 Ml) 0 each PO BID [facility] Last Admin: 04/11/19 09:49 Dose: Not Given Tacrolimus 0.1% (Ointment) 0 each TOP BID [facility] Last Admin: 04/11/19 09:49 Dose: Not Given Miconazole Powder 0 each TOP DAILY PRN PRN Reason: Rash Pyridoxine HCl (Vitamin B6-Pyridoxine) 50 mg PO DAILY [facility] Last Admin: 04/11/19 08:56 Dose: 50 mg Saccharomyces Boulardii (Florastor) 250 mg PO BID [facility] Last Admin: 04/11/19 08:56 Dose: 250 mg Sodium Chloride (Saline Flush) 10 ml FLUSH ASDIRECTED PRN PRN Reason: Keep Vein Open Last Admin: 04/10/19 13:20 Dose: 10 ml Vancomycin HCl (Pharmacy To Dose - Vancomycin) 1 dose .XX ASDIRECTED [facility] Discontinued Medications Furosemide (Lasix) 40 mg IVPUSH NOW ONE Stop: 04/10/19 11:48 Last Admin: 04/10/19 13:17 Dose: 40 mg Miconazole (Micatin 2% Crm) 0 gm TOP DAILY PRN PRN Reason: Rash Potassium Chloride (Klor-Con M20) 40 meq PO ONETIME ONE Stop: 04/11/19 08:00 Last Admin: 04/11/19 08:56 Dose: 40 meq - Exam Quality Assessment: No: Supplemental Oxygen General: Alert HEENT: Pupils Equal Neck: Supple Lungs: Clear to Auscultation, Normal Respiratory Effort Cardiovascular: Regular Rate, Regular Rhythm GI/Abdominal Exam: Normal Bowel Sounds, Soft, Non-Tender Extremities: Pedal Edema (4+) Skin: Other (foul smelling, purulent, erythematous, flaking rash encompassing her whole scalp, external ears and ear canal) Psy/Mental Status: Alert - Problem List Review Problem List Initiated/Reviewed/Updated: Yes - My Orders Last 24 Hours: My Active Orders 04/10/19 16:54 Oxygen Therapy [RC] PRN Up With Assistance [RC] BID VTE/DVT Education [RC] PER UNIT ROUTINE Vital Signs [RC] Q4HR Acetaminophen [Tylenol] 650 mg PO Q4H PRN Ondansetron [Zofran] 4 mg IV Q4H PRN Resuscitation Status Routine 04/10/19 16:55 Sequential Compression Device [OM.PC] Per Unit Routine 04/10/19 16:57 Antiembolic Devices [RC] BID 04/10/19 19:12 guaiFENesin [Robitussin] 100 mg PO TID PRN 04/10/19 21:00 ARIPiprazole [Abilify] 2 mg PO BEDTIME Carboxymethylcellulose Sodium [Refresh Liquigel 1%] 0 ml EYEBOTH BEDTIME ClonazePAM [KlonoPIN] 1 mg PO BID Donepezil [Aricept] 10 mg PO BEDTIME Dorzolamide/Timolol [Cosopt 2%-0.5% Ophth Soln] 0 ml EYEBOTH BID Memantine [Namenda] 10 mg PO BID Mirtazapine [Remeron] 7.5 mg PO BEDTIME Mupirocin Oint [Bactroban Oint] 0 gm TOP BID Patient's Own Medication [Ptom] 0 each PO BID Patient's Own Medication [Ptom] 0 each TOP BID Saccharomyces Boulardii [Florastor] 250 mg PO BID cloZAPine 300 mg PO BEDTIME 04/10/19 Dinner Fluid Restriction [DIET] Regular Diet [DIET] 04/11/19 06:00 Levothyroxine [Synthroid] 88 mcg PO ACBREAKFAST 04/11/19 07:00 Pantoprazole [ProTONIX] 40 mg PO DAILY@0700 04/11/19 09:00 Cholecalciferol (Vitamin D3) [Vitamin D3] 50 mcg PO DAILY Fenofibrate Nanocrystallized [Tricor] 145 mg PO DAILY Ferrous Sulfate 324 mg PO DAILY Folic Acid 1 mg PO DAILY Furosemide [Lasix] 40 mg PO DAILY Multivitamins,Therapeutic [Thera] 1 each PO DAILY Patient's Own Medication [Ptom] 0 each TOP DAILY PRN Sodium Ferric Gluconat/Sucrose [Sodium Ferric Gluc Cplx 62.5 MG/5 ML] 250 mg Sodium Chloride 0.9% [Normal Saline] 100 ml IV ONETIME Vitamin B6-pyridOXINE 50 mg PO DAILY cloZAPine 200 mg PO DAILY 04/11/19 10:26 Piperacillin/Tazobactam 4.5 GM - First Dose Piperacillin/Tazobactam [Piperacil- Tazobact] 4.5 gm Sodium Chloride 0.9% [Normal Saline] 100 ml IV ONETIME 04/11/19 10:30 Pharmacy to Dose - Vancomycin 1 dose .XX ASDIRECTED Piperacillin/Tazobactam [Piperacil-Tazobact] 4.5 gm Sodium Chloride 0.9% [ Normal Saline] 100 ml IV Q8H 04/11/19 19:12 Hibclen Wash. 1 applic TOP [place] 04/11/19 21:00 Patient's Own Medication [Ptom] 0 each TOP BEDTIME 04/12/19 05:11 CBC WITH AUTO DIFF [HEME] AM COMPREHENSIVE METABOLIC PN,CMP [CHEM] AM MAGNESIUM [CHEM] AM 04/13/19 05:11 CBC WITH AUTO DIFF [HEME] AM COMPREHENSIVE METABOLIC PN,CMP [CHEM] AM MAGNESIUM [CHEM] AM - Plan Plan:: Assessment * Normal chromic, normocytic anemia * History of iron deficiency anemia * Hemoglobin 11 days ago 8.0 --> clinic Hb before admission 7.8 --> admission 9.0--> 7.5 * Hemoglobin February 27 9.3 * Rectal exam from emergency room provider was negative for Hemoccult blood * Patient has a history of schizophrenia and this likely not following her fluid restriction. Some of the anemia is dilutional. * Based on indices this may be more due to anemia of chronic disease. Medications may also be contributing to anemia. * On home multivitamin supplement with folic acid and iron once a day * Iron and percent saturation is low confirming iron deficiency * Folic acid and vitamin B12 are normal * Acute on chronic CHF * Unknown type since we do not have an echo report available * We will not be able to do an echocardiogram on the weekend. * It appears she has not been following her fluid restriction * Acute on Chronic Hyponatremia - likely hypervolemic secondary to CHF * Unable to get plasma osmolality * Urine osmolality and urine sodium not performed before Lasix given * Sodium is actually improved from 11 days ago from 123 and now 127 * Malnutrition/Hypoalbuminemia/Iron def * February 27, 2019 albumin was 1.8--> today 1.7. Patient was given albumin in the emergency room. * This may be worsening lower extremity edema. * 4+ lower extremity pitting edema * Scalp psoriasis with purulent skin infection * History of schizophrenia, dementia, heart failure with hypertension, psoriasis , hypothyroidism, COPD, and multiple other chronic medical issues Plan * CBC, CMP, Mg in am * Severe scalp infection: Vancomycin and Zosyn. Continue bacitracin topically. * Fluid restriction of 1200 mL a day * Reconciled meds and continue topical treatment for psoriasis * Follow hemoglobin closely. Avoid giving blood products if possible, but hemoglobin is dropping. If hemoglobin drops to less than 7.0, consider transfusion. * Albumin IV and Lasix today * Encourage food over liquids. May benefit from Dietary consult while in the hospital, but may not be available on the weekend. * If here on Saturday get echocardiogram. * CODE STATUS: full code * VTE prophylaxis with SCDs * Length of stay is likely 2-3 days.
[2019-04-11] MEDS ORDERED: Albumin 25% 12.5 GM/50 ML BAG IV ONE (10:37)
[2019-04-11] MEDS ORDERED: Piperacillin/Tazobactam 4.5 GM in Sodium Chloride 0.9% 100 ML IV ONE (11:00)
[2019-04-11] MEDS ORDERED: Vancomycin 1 GM, Vancomycin 250 MG in Sodium Chloride 0.9% 250 ML IV SCH (12:00)
[2019-04-11] MEDS: [UNRECOGNIZED DRUG - OTHER] TOP SCH (21:03)
[2019-04-11] MEDS: Piperacillin/Tazobactam 4.5 GM in Sodium Chloride 0.9% 100 ML IV SCH (21:04)
[2019-04-11] MEDS: Donepezil 10 MG Tab PO SCH (21:07)
[2019-04-11] MEDS: Mirtazapine 15 MG Tab PO SCH (21:09)
[2019-04-11] MEDS: CHLORHEXIDINE 4% TOP SCH (21:11)
[2019-04-11] MEDS: Carboxymethylcellulose Sodium 1% Ophth Gel 15 ML Bottle EYEBOTH SCH (21:11)
[2019-04-12] MEDS: Piperacillin/Tazobactam 4.5 GM in Sodium Chloride 0.9% 100 ML IV SCH ×4 (03:00→22:06)
[2019-04-12] MEDS: Levothyroxine 88 MCG Tab PO SCH (05:19)
[2019-04-12] MEDS: Pantoprazole 40 MG Tab.CR PO SCH ×2 (05:19→06:09)
--- NOTE | 2019-04-12 08:09 | PCM.PN ---
- General Info Date of Service: 04/12/19 Admission Dx/Problem (Free Text): Admission Diagnosis/Problem Admission Diagnosis/Problem Anemia Subjective Update: Pt. is without complaints other than her fluid restriction. No complaints of SOB , palpitations, dizziness. - Review of Systems General: Reports: No Symptoms HEENT: Reports: No Symptoms Pulmonary: Reports: No Symptoms Cardiovascular: Reports: No Symptoms Gastrointestinal: Reports: No Symptoms - Patient Data Vitals - Most Recent: Last Vital Signs Temp 99.0 F 04/12/19 07:27 Pulse 94 04/12/19 07:27 Resp 18 04/12/19 07:27 BP 116/56 L 04/12/19 07:27 Pulse Ox 95 04/12/19 07:27 Weight - Most Recent: 189 lb 11.2 oz I&O - Last 24 Hours: Intake & Output 04/11/19 04/12/19 04/12/19 22:59 06:59 14:59 Intake Total 810 810 150 Output Total 1300 1050 Balance -490 810 -900 Lab Results Last 24 Hours: Laboratory Results - last 24 hr 04/11/19 04/12/19 04/12/19 Range/Units 06:43 04:45 04:45 WBC 10.88 H (3.98-10.04) K/mm3 RBC 2.60 L (3.98-5.22) M/mm3 Hgb 7.2 L* (11.2-15.7) gm/dl Hct 22.8 L (34.1-44.9) % MCV 87.7 (79.4-94.8) fl MCH 27.7 (25.6-32.2) pg MCHC 31.6 L (32.2-35.5) g/dl RDW Std Deviation 59.9 H (36.4-46.3) fL Plt Count 477 H (182-369) K/mm3 MPV 9.5 (9.4-12.3) fl Neut % (Auto) 58.3 (34.0-71.1) % Lymph % (Auto) 8.6 L (19.3-51.7) % [place] % (Auto) 15.3 H (4.7-12.5) % Eos % (Auto) 16.8 H (0.7-5.8) Baso % (Auto) 0.6 (0.1-1.2) % Neut # (Auto) 6.34 H (1.56-6.13) K/mm3 Lymph # (Auto) 0.94 L (1.18-3.74) K/mm3 [place] # (Auto) 1.67 H (0.24-0.36) K/mm3 Eos # (Auto) 1.83 H (0.04-0.36) K/mm3 Baso # (Auto) 0.06 (0.01-0.08) K/mm3 Manual Slide Review Abnormal smear Abnormal smear Sodium 127 L (136-145) mEq/L Potassium 3.6 (3.5-5.1) mEq/L Chloride 94 L (98-107) mEq/L Carbon Dioxide 27 (21-32) mEq/L Anion Gap 9.6 (5-15) BUN 11 (7-18) mg/dL Creatinine 0.9 (0.55-1.02) mg/dL Est Cr Clr Drug Dosing 57.57 mL/min Estimated GFR (MDRD) > 60 (>60) mL/min BUN/Creatinine Ratio 12.2 L (14-18) Glucose 94 (80-115) mg/dL Calcium 7.5 L (8.5-10.1) mg/dL Magnesium 1.8 (1.8-2.4) mg/dl Total Bilirubin 0.3 (0.2-1.0) mg/dL AST 14 L (15-37) U/L ALT 13 L (14-59) U/L Alkaline Phosphatase 58 (46-116) U/L Total Protein 4.8 L (6.4-8.2) g/dl Albumin 1.7 L (3.4-5.0) g/dl Globulin 3.1 gm/dL Albumin/Globulin Ratio 0.6 L (1-2) Med Orders - Current: Current Medications Acetaminophen (Tylenol) 650 mg PO Q4H PRN PRN Reason: Pain (Mild 1-3)/fever Aripiprazole (Abilify) 2 mg PO BEDTIME [facility] Last Admin: 04/11/19 21:08 Dose: 2 mg Artificial Tears (Refresh Liquigel 1%) 0 ml EYEBOTH BEDTIME [facility] Last Admin: 04/11/19 21:11 Dose: 1 drop Cholecalciferol (Vitamin D3) 50 mcg PO DAILY [facility] Last Admin: 04/11/19 08:56 Dose: 50 mcg Clonazepam (Klonopin) 1 mg PO BID [facility] Last Admin: 04/11/19 21:08 Dose: 1 mg Clozapine (Clozapine) 200 mg PO DAILY [facility] Last Admin: 04/11/19 08:57 Dose: 200 mg Clozapine (Clozapine) 300 mg PO BEDTIME [facility] Last Admin: 04/11/19 21:08 Dose: 300 mg Donepezil HCl (Aricept) 10 mg PO BEDTIME NA[facility] Last Admin: 04/11/19 21:07 Dose: 10 mg Dorzolamide/Timolol (Cosopt 2%-0.5% Ophth Soln) 0 ml EYEBOTH BID [facility] Last Admin: 04/11/19 21:10 Dose: 1 drop Fenofibrate (Tricor) 145 mg PO DAILY [facility] Last Admin: 04/11/19 08:57 Dose: 145 mg Ferrous Sulfate (Ferrous Sulfate) 324 mg PO DAILY [facility] Last Admin: 04/11/19 08:57 Dose: 324 mg Folic Acid (Folic Acid) 1 mg PO DAILY [facility] Last Admin: 04/11/19 08:57 Dose: 1 mg Furosemide (Lasix) 40 mg PO DAILY [facility] Last Admin: 04/11/19 08:57 Dose: 40 mg Guaifenesin (Robitussin) 100 mg PO TID PRN PRN Reason: Cough Piperacillin Sod/Tazobactam (Sod 4.5 gm/ Sodium Chloride) 100 mls @ 25 mls/hr IV Q8H [facility] Last Admin: 04/12/19 03:00 Dose: 25 mls/hr Vancomycin HCl 1 gm/ Sodium (Chloride) 250 mls @ 250 mls/hr IV Q12H [facility] Last Admin: 04/12/19 01:26 Dose: 250 mls/hr Levothyroxine Sodium (Synthroid) 88 mcg PO ACBREAKFAST [facility] Last Admin: 04/12/19 05:19 Dose: 88 mcg Memantine (Namenda) 10 mg PO BID [facility] Last Admin: 04/11/19 21:07 Dose: 10 mg Mirtazapine (Remeron) 7.5 mg PO BEDTIME [facility] Last Admin: 04/11/19 21:09 Dose: 7.5 mg Multivitamins (Thera) 1 each PO DAILY [facility] Last Admin: 04/11/19 08:56 Dose: 1 each Mupirocin (Bactroban Oint) 0 gm TOP BID [facility] Last Admin: 04/11/19 21:09 Dose: 1 applic Non-Formulary Medication (Hibclen Wash.) 1 applic TOP [place] [facility] Last Admin: 04/11/19 21:03 Dose: Not Given Ondansetron HCl (Zofran) 4 mg IV Q4H PRN PRN Reason: Nausea/Vomiting Pantoprazole Sodium (Protonix) 40 mg PO DAILY@0700 [facility] Last Admin: 04/12/19 06:09 Dose: Not Given Chlorhexidine 4% 0 each TOP BEDTIME [facility] Last Admin: 04/11/19 21:11 Dose: Not Given Levocarnitine 1 Gram (/10 Ml Own Med) 0 each PO BID [facility] Last Admin: 04/11/19 21:11 Dose: 1 each Tacrolimus 0.1% (Ointment Own Med) 0 each TOP BID [facility] Last Admin: 04/11/19 21:11 Dose: 1 each Miconazole Powder 0 each TOP DAILY PRN PRN Reason: Rash Pyridoxine HCl (Vitamin B6-Pyridoxine) 50 mg PO DAILY [facility] Last Admin: 04/11/19 08:56 Dose: 50 mg Saccharomyces Boulardii (Florastor) 250 mg PO BID [facility] Last Admin: 04/11/19 21:08 Dose: 250 mg Sodium Chloride (Saline Flush) 10 ml FLUSH ASDIRECTED PRN PRN Reason: Keep Vein Open Last Admin: 04/10/19 13:20 Dose: 10 ml Vancomycin HCl (Pharmacy To Dose - Vancomycin) 0 dose .XX ASDIRECTED PRN PRN Reason: RX TO DOSE VANCOMYCIN Discontinued Medications Furosemide (Lasix) 40 mg IVPUSH NOW ONE Stop: 04/10/19 11:48 Last Admin: 04/10/19 13:17 Dose: 40 mg Ferric Sodium Gluconate Complex 250 mg/ Sodium Chloride 120 mls @ 50 mls/hr IV ONETIME ONE Stop: 04/11/19 11:23 Last Admin: 04/11/19 09:49 Dose: 50 mls/hr Piperacillin Sod/Tazobactam (Sod 4.5 gm/ Sodium Chloride) 100 mls @ 200 mls/hr IV ONETIME ONE Stop: 04/11/19 11:29 Last Admin: 04/11/19 12:41 Dose: 200 mls/hr Vancomycin HCl 1 gm/Vancomycin HCl 250 mg/ Sodium Chloride 250 mls @ 166.667 mls/hr IV Q12H [facility] Albumin Human (Flexbumin 25%) 12.5 gm in 50 mls @ 100 mls/hr IV ONETIME ONE Stop: 04/11/19 11:06 Last Admin: 04/11/19 12:08 Dose: 100 mls/hr Miconazole (Micatin 2% Crm) 0 gm TOP DAILY PRN PRN Reason: Rash Potassium Chloride (Klor-Con M20) 40 meq PO ONETIME ONE Stop: 04/11/19 08:00 Last Admin: 04/11/19 08:56 Dose: 40 meq - Exam General: Alert HEENT: Pupils Equal, Other (Scalp is improved. Less erythematous and less purulence.) Neck: Supple Lungs: Clear to Auscultation, Normal Respiratory Effort Cardiovascular: Regular Rate, Regular Rhythm GI/Abdominal Exam: Soft, Non-Tender Extremities: Pedal Edema Skin: Warm Psy/Mental Status: Alert, Normal Affect, Normal Mood - Problem List Review Problem List Initiated/Reviewed/Updated: Yes - My Orders Last 24 Hours: My Active Orders 04/11/19 09:00 Cholecalciferol (Vitamin D3) [Vitamin D3] 50 mcg PO DAILY Fenofibrate Nanocrystallized [Tricor] 145 mg PO DAILY Ferrous Sulfate 324 mg PO DAILY Folic Acid 1 mg PO DAILY Furosemide [Lasix] 40 mg PO DAILY Multivitamins,Therapeutic [Thera] 1 each PO DAILY Patient's Own Medication [Ptom] 0 each TOP DAILY PRN Vitamin B6-pyridOXINE 50 mg PO DAILY cloZAPine 200 mg PO DAILY 04/11/19 10:30 Pharmacy to Dose - Vancomycin 0 dose .XX ASDIRECTED PRN 04/11/19 12:00 Vancomycin [Vancocin] 1 gm Sodium Chloride 0.9% [Normal Saline (AdvBag)] 250 ml IV Q12H 04/11/19 19:00 Piperacillin/Tazobactam [Piperacil-Tazobact] 4.5 gm Sodium Chloride 0.9% [ Normal Saline] 100 ml IV Q8H 04/11/19 19:12 Hibclen Wash. 1 applic TOP MOWESA 04/11/19 21:00 Patient's Own Medication [Ptom] 0 each TOP BEDTIME 04/13/19 05:11 CBC WITH AUTO DIFF [HEME] AM COMPREHENSIVE METABOLIC PN,CMP [CHEM] AM MAGNESIUM [CHEM] AM - Plan Plan:: Assessment * Normal chromic, normocytic anemia * History of iron deficiency anemia * Hemoglobin 11 days ago 8.0 --> clinic Hb before admission 7.8 --> admission 9.0--> 7.5--> 7.2 * Hemoglobin February 27: 9.3 * Rectal exam from emergency room provider was negative for Hemoccult blood * Patient has a history of schizophrenia and this likely not following her fluid restriction. * Based on indices this may be more due to anemia of chronic disease. Medications may also be contributing to anemia. * On home multivitamin supplement with folic acid and iron once a day * Iron and percent saturation is low confirming iron deficiency * Folic acid and vitamin B12 are normal * Acute on chronic CHF * Unknown type since we do not have an echo report available * We will not be able to do an echocardiogram on the weekend. * It appears she has not been following her fluid restriction * Acute on Chronic Hyponatremia - likely hypervolemic secondary to CHF * Unable to get plasma osmolality * Urine osmolality and urine sodium not performed before Lasix given * Sodium is actually improved from 11 days ago from 123 and now 127 * Malnutrition/Hypoalbuminemia/Iron def * February 27, 2019 albumin was 1.8--> today 1.7. Patient was given albumin in the emergency room. * This may be worsening lower extremity edema. * 4+ lower extremity pitting edema * Scalp psoriasis with purulent skin infection - improving * History of schizophrenia, dementia, heart failure with hypertension, psoriasis , hypothyroidism, COPD, and multiple other chronic medical issues Plan * CBC, CMP, Mg in am * Severe scalp infection: Vancomycin and Zosyn. Continue bacitracin topically. Shampoo scalp with baby shampoo bid. * Fluid restriction of 1500 mL a day * Reconciled meds and continue topical treatment for psoriasis * Follow hemoglobin closely. Repeat H/H at 1300. If hemoglobin drops to less than 7.0, consider transfusion. * Encourage food over liquids. May benefit from Dietary consult while in the hospital, but may not be available on the weekend. * Echocardiogram on Saturday. * CODE STATUS: full code * VTE prophylaxis with SCDs * Length of stay is likely 2-3 days.
[2019-04-12] MEDS: Memantine 10 MG Tab PO SCH ×2 (09:12→22:05)
[2019-04-12] MEDS: Cholecalciferol (Vitamin D3) 25 MCG Tab PO SCH (09:12)
[2019-04-12] MEDS: Multivitamins,Therapeutic Tab PO SCH (09:13)
[2019-04-12] MEDS: Saccharomyces Boulardii (Probiotic) 250 MG Cap PO SCH ×2 (09:13→22:05)
[2019-04-12] MEDS: Folic Acid 1 MG Tab PO SCH (09:13)
[2019-04-12] MEDS: ClonazePAM 1 MG Tab PO SCH ×2 (09:13→22:02)
[2019-04-12] MEDS: Vitamin B6-pyridOXINE 50 MG Tab PO SCH (09:13)
[2019-04-12] MEDS: Ferrous Sulfate 324 MG Tab.EC PO SCH (09:13)
[2019-04-12] MEDS: Fenofibrate Nanocrystallized 145 MG Tab PO SCH (09:13)
[2019-04-12] MEDS: cloZAPine 100 MG Tab PO SCH ×2 (09:13→22:03)
[2019-04-12] MEDS: Furosemide 40 MG Tab PO SCH (09:13)
[2019-04-12] MEDS: Dorzolamide/Timolol 2%-0.5% Ophth Soln 10 ML Bottle EYEBOTH SCH ×2 (09:14→22:01)
[2019-04-12] MEDS: LEVOCARNITINE PO SCH ×2 (09:14→22:05)
[2019-04-12] MEDS: Mupirocin Oint 22 GM Tube TOP SCH ×2 (16:10→22:04)
[2019-04-12] MEDS: TACROLIMUS 0.1% TOP SCH ×2 (16:11→22:06)
[2019-04-12] MEDS: Carboxymethylcellulose Sodium 1% Ophth Gel 15 ML Bottle EYEBOTH SCH (22:02)
[2019-04-12] MEDS: Mirtazapine 15 MG Tab PO SCH (22:04)
[2019-04-12] MEDS: Donepezil 10 MG Tab PO SCH (22:04)
[2019-04-12] MEDS: CHLORHEXIDINE 4% TOP SCH (22:05)
[2019-04-13] MEDS: Piperacillin/Tazobactam 4.5 GM in Sodium Chloride 0.9% 100 ML IV SCH ×3 (05:32→23:00)
[2019-04-13] MEDS: Pantoprazole 40 MG Tab.CR PO SCH ×2 (05:32→08:21)
[2019-04-13] MEDS: Levothyroxine 88 MCG Tab PO SCH (05:32)
[2019-04-13] MEDS: Furosemide 40 MG Tab PO SCH (08:22)
[2019-04-13] MEDS: Saccharomyces Boulardii (Probiotic) 250 MG Cap PO SCH ×2 (08:22→21:07)
[2019-04-13] MEDS: Multivitamins,Therapeutic Tab PO SCH (08:22)
[2019-04-13] MEDS: cloZAPine 100 MG Tab PO SCH ×2 (08:22→21:10)
[2019-04-13] MEDS: Folic Acid 1 MG Tab PO SCH (08:22)
[2019-04-13] MEDS: Vitamin B6-pyridOXINE 50 MG Tab PO SCH (08:22)
[2019-04-13] MEDS: Memantine 10 MG Tab PO SCH ×2 (08:22→21:11)
[2019-04-13] MEDS: Ferrous Sulfate 324 MG Tab.EC PO SCH (08:22)
[2019-04-13] MEDS: Cholecalciferol (Vitamin D3) 25 MCG Tab PO SCH (08:22)
[2019-04-13] MEDS: ClonazePAM 1 MG Tab PO SCH ×2 (08:23→21:09)
[2019-04-13] MEDS: LEVOCARNITINE PO SCH ×2 (08:23→21:05)
[2019-04-13] MEDS: Fenofibrate Nanocrystallized 145 MG Tab PO SCH (08:23)
[2019-04-13] MEDS: Dorzolamide/Timolol 2%-0.5% Ophth Soln 10 ML Bottle EYEBOTH SCH ×2 (08:24→20:41)
[2019-04-13] MEDS: TACROLIMUS 0.1% TOP SCH ×2 (08:24→21:05)
[2019-04-13] MEDS: Mupirocin Oint 22 GM Tube TOP SCH ×2 (09:18→20:58)
--- NOTE | 2019-04-13 15:20 | PCM.PN ---
- General Info Date of Service: 04/13/19 Admission Dx/Problem (Free Text): Admission Diagnosis/Problem Admission Diagnosis/Problem Anemia Subjective Update: Patient is without complaints. Nursing reports improvements in her scalp cellulitis. Functional Status: Reports: Pain Controlled - Review of Systems General: Reports: No Symptoms HEENT: Reports: No Symptoms Pulmonary: Reports: No Symptoms Cardiovascular: Reports: No Symptoms Gastrointestinal: Reports: No Symptoms - Patient Data Vitals - Most Recent: Last Vital Signs Temp 97.5 F 04/13/19 12:28 Pulse 70 04/13/19 12:28 Resp 20 04/13/19 12:28 BP 125/88 04/13/19 12:28 Pulse Ox 97 04/13/19 12:28 Weight - Most Recent: 186 lb 4.8 oz I&O - Last 24 Hours: Intake & Output 04/13/19 04/13/19 04/13/19 06:59 14:59 22:59 Intake Total 350 570 Output Total 1100 Balance 350 -530 Lab Results Last 24 Hours: Laboratory Results - last 24 hr 04/12/19 04/13/19 04/13/19 Range/Units 14:05 05:30 05:30 WBC 10.26 H (3.98-10.04) K/mm3 RBC 2.82 L (3.98-5.22) M/mm3 Hgb 8.5 L 7.9 L (11.2-15.7) gm/dl Hct 24.7 L (34.1-44.9) % MCV 87.6 (79.4-94.8) fl MCH 28.0 (25.6-32.2) pg MCHC 32.0 L (32.2-35.5) g/dl RDW Std Deviation 60.8 H (36.4-46.3) fL Plt Count 501 H (182-369) K/mm3 MPV 9.3 L (9.4-12.3) fl Neut % (Auto) 51.9 (34.0-71.1) % Lymph % (Auto) 11.6 L (19.3-51.7) % [place] % (Auto) 16.6 H (4.7-12.5) % Eos % (Auto) 18.8 H (0.7-5.8) Baso % (Auto) 0.7 (0.1-1.2) % Neut # (Auto) 5.33 (1.56-6.13) K/mm3 Lymph # (Auto) 1.19 (1.18-3.74) K/mm3 [place] # (Auto) 1.70 H (0.24-0.36) K/mm3 Eos # (Auto) 1.93 H (0.04-0.36) K/mm3 Baso # (Auto) 0.07 (0.01-0.08) K/mm3 Manual Slide Review Abnormal smear Sodium 129 L (136-145) mEq/L Potassium 3.5 (3.5-5.1) mEq/L Chloride 96 L (98-107) mEq/L Carbon Dioxide 28 (21-32) mEq/L Anion Gap 8.5 (5-15) BUN 12 (7-18) mg/dL Creatinine 1.0 (0.55-1.02) mg/dL Est Cr Clr Drug Dosing 51.81 mL/min Estimated GFR (MDRD) 56 (>60) mL/min BUN/Creatinine Ratio 12.0 L (14-18) Glucose 93 (80-115) mg/dL Calcium 8.1 L (8.5-10.1) mg/dL Magnesium 1.8 (1.8-2.4) mg/dl Total Bilirubin 0.4 (0.2-1.0) mg/dL AST 12 L (15-37) U/L ALT 14 (14-59) U/L Alkaline Phosphatase 60 (46-116) U/L Total Protein 5.1 L (6.4-8.2) g/dl Albumin 1.8 L (3.4-5.0) g/dl Globulin 3.3 gm/dL Albumin/Globulin Ratio 0.6 L (1-2) Vancomycin Trough (10.0-20.0) 04/13/19 Range/Units 12:16 WBC (3.98-10.04) K/mm3 RBC (3.98-5.22) M/mm3 Hgb (11.2-15.7) gm/dl Hct (34.1-44.9) % MCV (79.4-94.8) fl MCH (25.6-32.2) pg MCHC (32.2-35.5) g/dl RDW Std Deviation (36.4-46.3) fL Plt Count (182-369) K/mm3 MPV (9.4-12.3) fl Neut % (Auto) (34.0-71.1) % Lymph % (Auto) (19.3-51.7) % [place] % (Auto) (4.7-12.5) % Eos % (Auto) (0.7-5.8) Baso % (Auto) (0.1-1.2) % Neut # (Auto) (1.56-6.13) K/mm3 Lymph # (Auto) (1.18-3.74) K/mm3 [place] # (Auto) (0.24-0.36) K/mm3 Eos # (Auto) (0.04-0.36) K/mm3 Baso # (Auto) (0.01-0.08) K/mm3 Manual Slide Review Sodium (136-145) mEq/L Potassium (3.5-5.1) mEq/L Chloride (98-107) mEq/L Carbon Dioxide (21-32) mEq/L Anion Gap (5-15) BUN (7-18) mg/dL Creatinine (0.55-1.02) mg/dL Est Cr Clr Drug Dosing mL/min Estimated GFR (MDRD) (>60) mL/min BUN/Creatinine Ratio (14-18) Glucose (80-115) mg/dL Calcium (8.5-10.1) mg/dL Magnesium (1.8-2.4) mg/dl Total Bilirubin (0.2-1.0) mg/dL AST (15-37) U/L ALT (14-59) U/L Alkaline Phosphatase (46-116) U/L Total Protein (6.4-8.2) g/dl Albumin (3.4-5.0) g/dl Globulin gm/dL Albumin/Globulin Ratio (1-2) Vancomycin Trough 17.3 (10.0-20.0) Med Orders - Current: Current Medications Acetaminophen (Tylenol) 650 mg PO Q4H PRN PRN Reason: Pain (Mild 1-3)/fever Aripiprazole (Abilify) 2 mg PO BEDTIME [facility] Last Admin: 04/12/19 22:03 Dose: 2 mg Artificial Tears (Refresh Liquigel 1%) 0 ml EYEBOTH BEDTIME [facility] Last Admin: 04/12/19 22:02 Dose: 1 drop Cholecalciferol (Vitamin D3) 50 mcg PO DAILY [facility] Last Admin: 04/13/19 08:22 Dose: 50 mcg Clonazepam (Klonopin) 1 mg PO BID [facility] Last Admin: 04/13/19 08:23 Dose: 1 mg Clozapine (Clozapine) 200 mg PO DAILY [facility] Last Admin: 04/13/19 08:22 Dose: 200 mg Clozapine (Clozapine) 300 mg PO BEDTIME [facility] Last Admin: 04/12/19 22:03 Dose: 300 mg Donepezil HCl (Aricept) 10 mg PO BEDTIME [facility] Last Admin: 04/12/19 22:04 Dose: 10 mg Dorzolamide/Timolol (Cosopt 2%-0.5% Ophth Soln) 0 ml EYEBOTH BID [facility] Last Admin: 04/13/19 08:24 Dose: 1 drop Fenofibrate (Tricor) 145 mg PO DAILY [facility] Last Admin: 04/13/19 08:23 Dose: 145 mg Ferrous Sulfate (Ferrous Sulfate) 324 mg PO DAILY [facility] Last Admin: 04/13/19 08:22 Dose: 324 mg Folic Acid (Folic Acid) 1 mg PO DAILY [facility] Last Admin: 04/13/19 08:22 Dose: 1 mg Furosemide (Lasix) 40 mg PO DAILY [facility] Last Admin: 04/13/19 08:22 Dose: 40 mg Guaifenesin (Robitussin) 100 mg PO TID PRN PRN Reason: Cough Vancomycin HCl 1 gm/ Sodium (Chloride) 250 mls @ 250 mls/hr IV Q12H [facility] Last Admin: 04/13/19 13:56 Dose: 250 mls/hr Piperacillin Sod/Tazobactam (Sod 4.5 gm/ Sodium Chloride) 100 mls @ 25 mls/hr IV Q8H [facility] Last Admin: 04/13/19 05:32 Dose: 25 mls/hr Levothyroxine Sodium (Synthroid) 88 mcg PO ACBREAKFAST [facility] Last Admin: 04/13/19 05:32 Dose: 88 mcg Memantine (Namenda) 10 mg PO BID [facility] Last Admin: 04/13/19 08:22 Dose: 10 mg Mirtazapine (Remeron) 7.5 mg PO BEDTIME [facility] Last Admin: 11/24/19 22:04 Dose: 7.5 mg Multivitamins (Thera) 1 each PO DAILY [facility] Last Admin: 04/13/19 08:22 Dose: 1 each Mupirocin (Bactroban Oint) 0 gm TOP BID [facility] Last Admin: 04/13/19 09:18 Dose: 1 applic Non-Formulary Medication (Hibclen Wash.) 1 applic TOP MOWESA [facility] Last Admin: 04/11/19 21:03 Dose: Not Given Ondansetron HCl (Zofran) 4 mg IV Q4H PRN PRN Reason: Nausea/Vomiting Pantoprazole Sodium (Protonix) 40 mg PO DAILY@0700 [facility] Last Admin: 04/13/19 08:21 Dose: Not Given Chlorhexidine 4% 0 each TOP BEDTIME [facility] Last Admin: 04/12/19 22:05 Dose: Not Given Levocarnitine 1 Gram (/10 Ml Own Med) 0 each PO BID [facility] Last Admin: 04/13/19 08:23 Dose: 1 each Tacrolimus 0.1% (Ointment Own Med) 0 each TOP BID [facility] Last Admin: 04/13/19 08:24 Dose: 1 each Miconazole Powder 0 each TOP DAILY PRN PRN Reason: Rash Pyridoxine HCl (Vitamin B6-Pyridoxine) 50 mg PO DAILY [facility] Last Admin: 04/13/19 08:22 Dose: 50 mg Saccharomyces Boulardii (Florastor) 250 mg PO BID [facility] Last Admin: 04/13/19 08:22 Dose: 250 mg Sodium Chloride (Saline Flush) 10 ml FLUSH ASDIRECTED PRN PRN Reason: Keep Vein Open Last Admin: 04/10/19 13:20 Dose: 10 ml Vancomycin HCl (Pharmacy To Dose - Vancomycin) 0 dose .XX ASDIRECTED PRN PRN Reason: RX TO DOSE VANCOMYCIN Discontinued Medications Furosemide (Lasix) 40 mg IVPUSH NOW ONE Stop: 04/10/19 11:48 Last Admin: 04/10/19 13:17 Dose: 40 mg Ferric Sodium Gluconate Complex 250 mg/ Sodium Chloride 120 mls @ 50 mls/hr IV ONETIME ONE Stop: 04/11/19 11:23 Last Admin: 04/11/19 09:49 Dose: 50 mls/hr Piperacillin Sod/Tazobactam (Sod 4.5 gm/ Sodium Chloride) 100 mls @ 25 mls/hr IV Q8H [facility] Last Admin: 04/12/19 17:20 Dose: Not Given Piperacillin Sod/Tazobactam (Sod 4.5 gm/ Sodium Chloride) 100 mls @ 200 mls/hr IV ONETIME ONE Stop: 04/11/19 11:29 Last Admin: 04/11/19 12:41 Dose: 200 mls/hr Vancomycin HCl 1 gm/Vancomycin HCl 250 mg/ Sodium Chloride 250 mls @ 166.667 mls/hr IV Q12H [facility] Albumin Human (Flexbumin 25%) 12.5 gm in 50 mls @ 100 mls/hr IV ONETIME ONE Stop: 04/11/19 11:06 Last Admin: 04/11/19 12:08 Dose: 100 mls/hr Miconazole (Micatin 2% Crm) 0 gm TOP DAILY PRN PRN Reason: Rash Potassium Chloride (Klor-Con M20) 40 meq PO ONETIME ONE Stop: 04/11/19 08:00 Last Admin: 04/11/19 08:56 Dose: 40 meq - Exam Quality Assessment: No: Supplemental Oxygen General: Alert, Oriented, Other HEENT: Other (decreased erythema of the left external ear.) Neck: Supple Lungs: Clear to Auscultation, Normal Respiratory Effort Cardiovascular: Regular Rate, Regular Rhythm GI/Abdominal Exam: Normal Bowel Sounds, Soft, Non-Tender Extremities: Pedal Edema (2+ up to knees) Skin: Other (scalp flaking with mild erythema. No discharge.) - Problem List Review Problem List Initiated/Reviewed/Updated: Yes - My Orders Last 24 Hours: My Active Orders 04/13/19 09:00 Echo Comp wo Cont [US] Routine 04/13/19 Dinner Fluid Restriction [DIET] 04/15/19 11:00 VANCOMYCIN TROUGH [CHEM] Timed - Plan Plan:: Assessment * Normal chromic, normocytic anemia * History of iron deficiency anemia * Hemoglobin 11 days ago 8.0 --> clinic Hb before admission 7.8 --> admission 9.0--> 7.5--> 7.2-->8.5-->7.9 * Hemoglobin February 27: 9.3 * Rectal exam from emergency room provider was negative for Hemoccult blood * Iron def on anemia of chronic disease. * On home multivitamin supplement with folic acid and iron once a day * Iron and percent saturation is low confirming iron deficiency * Folic acid and vitamin B12 are normal * Given IV iron during hospitalization * Acute on chronic CHF * Unknown type since we do not have an echo report available * Echo schedule for today * It appears she has not been following her fluid restriction * Acute on Chronic Hyponatremia - likely hypervolemic secondary to CHF * Unable to get plasma osmolality * Urine osmolality and urine sodium not performed before Lasix given * Sodium is actually improved from 11 days ago from 123 and now 127 * Malnutrition/Hypoalbuminemia/Iron def * malnutrition likely contributing to overall lolly issues. * February 27, 2019 albumin was 1.8--> today 1.8. Patient was given albumin in the emergency room. * This may be worsening lower extremity edema. * 4+ lower extremity pitting edema * Scalp psoriasis with purulent skin infection - improving * History of schizophrenia, dementia, heart failure with hypertension, psoriasis , hypothyroidism, COPD, and multiple other chronic medical issues Plan * CBC, CMP, Mg in am * Severe scalp infection: Vancomycin and Zosyn. Continue Bactroban topically. Shampoo scalp with baby shampoo bid. * Increase Fluid restriction to 1800 mL a day * Reconciled meds and continue topical treatment for psoriasis * Follow hemoglobin closely. If hemoglobin drops to less than 7.0, consider transfusion. * Encourage food over liquids. May benefit from Dietary consult while in the hospital, but may not be available on the weekend. * Echocardiogram results pending. * CODE STATUS: full code * VTE prophylaxis with SCDs * Length of stay will be greater than 96 hours due to slow resolution of hyponatremia.
[2019-04-13] MEDS: [UNRECOGNIZED DRUG - OTHER] TOP SCH (20:38)
[2019-04-13] MEDS: Carboxymethylcellulose Sodium 1% Ophth Gel 15 ML Bottle EYEBOTH SCH (20:57)
[2019-04-13] MEDS: CHLORHEXIDINE 4% TOP SCH (21:05)
[2019-04-13] MEDS: Donepezil 10 MG Tab PO SCH (21:06)
[2019-04-13] MEDS: Mirtazapine 15 MG Tab PO SCH (21:10)
[2019-04-14] MEDS: Pantoprazole 40 MG Tab.CR PO SCH (06:06)
[2019-04-14] MEDS: Piperacillin/Tazobactam 4.5 GM in Sodium Chloride 0.9% 100 ML IV SCH ×3 (06:06→23:10)
[2019-04-14] MEDS: Levothyroxine 88 MCG Tab PO SCH (06:07)
[2019-04-14] MEDS: Cholecalciferol (Vitamin D3) 25 MCG Tab PO SCH (09:17)
[2019-04-14] MEDS: Vitamin B6-pyridOXINE 50 MG Tab PO SCH (09:18)
[2019-04-14] MEDS: Saccharomyces Boulardii (Probiotic) 250 MG Cap PO SCH ×2 (09:18→21:42)
[2019-04-14] MEDS: cloZAPine 100 MG Tab PO SCH ×2 (09:19→21:42)
[2019-04-14] MEDS: ClonazePAM 1 MG Tab PO SCH ×2 (09:21→21:42)
[2019-04-14] MEDS: Fenofibrate Nanocrystallized 145 MG Tab PO SCH (09:21)
[2019-04-14] MEDS: Multivitamins,Therapeutic Tab PO SCH (09:21)
[2019-04-14] MEDS: Folic Acid 1 MG Tab PO SCH (09:22)
[2019-04-14] MEDS: Ferrous Sulfate 324 MG Tab.EC PO SCH (09:22)
[2019-04-14] MEDS: Furosemide 40 MG Tab PO SCH (09:23)
[2019-04-14] MEDS: Memantine 10 MG Tab PO SCH ×2 (09:23→21:42)
[2019-04-14] MEDS: LEVOCARNITINE PO SCH ×2 (09:26→21:47)
[2019-04-14] MEDS: Dorzolamide/Timolol 2%-0.5% Ophth Soln 10 ML Bottle EYEBOTH SCH ×2 (09:26→21:45)
[2019-04-14] MEDS: Mupirocin Oint 22 GM Tube TOP SCH ×2 (09:27→21:46)
[2019-04-14] MEDS: TACROLIMUS 0.1% TOP SCH ×2 (09:33→21:52)
--- NOTE | 2019-04-14 12:29 | PCM.PN ---
- General Info Date of Service: 04/14/19 Admission Dx/Problem (Free Text): Admission Diagnosis/Problem Admission Diagnosis/Problem Anemia Subjective Update: Beckie has no concerns or complaints. Nursing is going to shower her today. Cellulitis appears to be improving. Bilateral ears have started to drain today. Erythema improving. Discussed abx with pharmacy and Dr. Tinoco. Will continue current treatment course. Functional Status: Reports: Pain Controlled, Tolerating Diet, Ambulating, Urinating. Denies: New Symptoms - Review of Systems General: Reports: No Symptoms. Denies: Fever, Weakness, Fatigue, Malaise HEENT: Reports: No Symptoms. Denies: Headaches, Sore Throat Pulmonary: Reports: No Symptoms. Denies: Shortness of Breath, Cough, Sputum, Wheezing Cardiovascular: Reports: Edema. Denies: Chest Pain, Palpitations, Dyspnea on Exertion Gastrointestinal: Reports: No Symptoms. Denies: Abdominal Pain, Constipation, Diarrhea, Nausea, Vomiting Genitourinary: Reports: No Symptoms. Denies: Pain Musculoskeletal: Reports: No Symptoms Skin: Reports: No Symptoms. Denies: Cyanosis Neurological: Reports: Confusion (baseline schizophrenia ), Pre-Existing Deficit Psychiatric: Reports: No Symptoms - Patient Data Vitals - Most Recent: Last Vital Signs Temp 97.3 F 04/14/19 08:01 Pulse 79 04/14/19 08:01 Resp 14 04/14/19 08:01 BP 128/67 04/14/19 08:01 Pulse Ox 96 04/14/19 08:01 Weight - Most Recent: 188 lb 3.2 oz I&O - Last 24 Hours: Intake & Output 04/13/19 04/14/19 04/14/19 22:59 06:59 14:59 Intake Total 1250 450 800 Output Total 1050 1200 Balance 200 450 -400 Lab Results Last 24 Hours: Laboratory Results - last 24 hr 04/13/19 04/14/19 04/14/19 Range/Units 12:16 08:35 08:35 WBC 8.53 (3.98-10.04) K/mm3 RBC 2.90 L (3.98-5.22) M/mm3 Hgb 8.2 L (11.2-15.7) gm/dl Hct 25.8 L (34.1-44.9) % MCV 89.0 (79.4-94.8) fl MCH 28.3 (25.6-32.2) pg MCHC 31.8 L (32.2-35.5) g/dl RDW Std Deviation 61.3 H (36.4-46.3) fL Plt Count 479 H (182-369) K/mm3 MPV 8.5 L (9.4-12.3) fl Neut % (Auto) 48.0 (34.0-71.1) % Lymph % (Auto) 14.4 L (19.3-51.7) % [place] % (Auto) 19.5 H (4.7-12.5) % Eos % (Auto) 16.9 H (0.7-5.8) Baso % (Auto) 0.8 (0.1-1.2) % Neut # (Auto) 4.10 (1.56-6.13) K/mm3 Lymph # (Auto) 1.23 (1.18-3.74) K/mm3 [place] # (Auto) 1.66 H (0.24-0.36) K/mm3 Eos # (Auto) 1.44 H (0.04-0.36) K/mm3 Baso # (Auto) 0.07 (0.01-0.08) K/mm3 Manual Slide Review Abnormal smear Sodium 133 L (136-145) mEq/L Potassium 3.7 (3.5-5.1) mEq/L Chloride 100 (98-107) mEq/L Carbon Dioxide 28 (21-32) mEq/L Anion Gap 8.7 (5-15) BUN 12 (7-18) mg/dL Creatinine 1.0 (0.55-1.02) mg/dL Est Cr Clr Drug Dosing 51.81 mL/min Estimated GFR (MDRD) 56 (>60) mL/min BUN/Creatinine Ratio 12.0 L (14-18) Glucose 110 (80-115) mg/dL Calcium 8.0 L (8.5-10.1) mg/dL Magnesium 1.8 (1.8-2.4) mg/dl Total Bilirubin 0.3 (0.2-1.0) mg/dL AST 16 (15-37) U/L ALT 16 (14-59) U/L Alkaline Phosphatase 56 (46-116) U/L Total Protein 5.9 L (6.4-8.2) g/dl Albumin 1.9 L (3.4-5.0) g/dl Globulin 4.0 gm/dL Albumin/Globulin Ratio 0.5 L (1-2) Vancomycin Trough 17.3 (10.0-20.0) Med Orders - Current: Current Medications Acetaminophen (Tylenol) 650 mg PO Q4H PRN PRN Reason: Pain (Mild 1-3)/fever Aripiprazole (Abilify) 2 mg PO BEDTIME [facility] Last Admin: 04/13/19 21:08 Dose: 2 mg Artificial Tears (Refresh Liquigel 1%) 0 ml EYEBOTH BEDTIME [facility] Last Admin: 04/13/19 20:57 Dose: 1 drop Cholecalciferol (Vitamin D3) 50 mcg PO DAILY [facility] Last Admin: 04/14/19 09:17 Dose: 50 mcg Clonazepam (Klonopin) 1 mg PO BID [facility] Last Admin: 04/14/19 09:21 Dose: 1 mg Clozapine (Clozapine) 200 mg PO DAILY [facility] Last Admin: 04/14/19 09:19 Dose: 200 mg Clozapine (Clozapine) 300 mg PO BEDTIME [facility] Last Admin: 04/13/19 21:10 Dose: 300 mg Donepezil HCl (Aricept) 10 mg PO BEDTIME [facility] Last Admin: 04/13/19 21:06 Dose: 10 mg Dorzolamide/Timolol (Cosopt 2%-0.5% Ophth Soln) 0 ml EYEBOTH BID [facility] Last Admin: 04/14/19 09:26 Dose: 1 drop Fenofibrate (Tricor) 145 mg PO DAILY [facility] Last Admin: 04/14/19 09:21 Dose: 145 mg Ferrous Sulfate (Ferrous Sulfate) 324 mg PO DAILY [facility] Last Admin: 04/14/19 09:22 Dose: 324 mg Folic Acid (Folic Acid) 1 mg PO DAILY [facility] Last Admin: 04/14/19 09:22 Dose: 1 mg Furosemide (Lasix) 40 mg PO DAILY [facility] Last Admin: 04/14/19 09:23 Dose: 40 mg Guaifenesin (Robitussin) 100 mg PO TID PRN PRN Reason: Cough Vancomycin HCl 1 gm/ Sodium (Chloride) 250 mls @ 250 mls/hr IV Q12H [facility] Last Admin: 04/14/19 11:54 Dose: 250 mls/hr Piperacillin Sod/Tazobactam (Sod 4.5 gm/ Sodium Chloride) 100 mls @ 25 mls/hr IV Q8H [facility] Last Admin: 04/14/19 06:06 Dose: 25 mls/hr Levothyroxine Sodium (Synthroid) 88 mcg PO ACBREAKFAST [facility] Last Admin: 04/14/19 06:07 Dose: 88 mcg Memantine (Namenda) 10 mg PO BID [facility] Last Admin: 04/14/19 09:23 Dose: 10 mg Mirtazapine (Remeron) 7.5 mg PO BEDTIME [facility] Last Admin: 04/13/19 21:10 Dose: 7.5 mg Multivitamins (Thera) 1 each PO DAILY [facility] Last Admin: 04/14/19 09:21 Dose: 1 each Mupirocin (Bactroban Oint) 0 gm TOP BID [facility] Last Admin: 04/14/19 09:27 Dose: 1 applic Non-Formulary Medication (Hibclen Wash.) 1 applic TOP [place] [facility] Last Admin: 04/13/19 20:38 Dose: 1 applic Ondansetron HCl (Zofran) 4 mg IV Q4H PRN PRN Reason: Nausea/Vomiting Pantoprazole Sodium (Protonix) 40 mg PO DAILY@0700 [facility] Last Admin: 04/14/19 06:06 Dose: 40 mg Chlorhexidine 4% 0 each TOP BEDTIME [facility] Last Admin: 04/13/19 21:05 Dose: 1 each Levocarnitine 1 Gram (/10 Ml Own Med) 0 each PO BID [facility] Last Admin: 04/14/19 09:26 Dose: 1 each Tacrolimus 0.1% (Ointment Own Med) 0 each TOP BID [facility] Last Admin: 04/14/19 09:33 Dose: 1 each Miconazole Powder 0 each TOP DAILY PRN PRN Reason: Rash Pyridoxine HCl (Vitamin B6-Pyridoxine) 50 mg PO DAILY [facility] Last Admin: 04/14/19 09:18 Dose: 50 mg Saccharomyces Boulardii (Florastor) 250 mg PO BID [facility] Last Admin: 04/14/19 09:18 Dose: 250 mg Sodium Chloride (Saline Flush) 10 ml FLUSH ASDIRECTED PRN PRN Reason: Keep Vein Open Last Admin: 04/10/19 13:20 Dose: 10 ml Vancomycin HCl (Pharmacy To Dose - Vancomycin) 0 dose .XX ASDIRECTED PRN PRN Reason: RX TO DOSE VANCOMYCIN Discontinued Medications Furosemide (Lasix) 40 mg IVPUSH NOW ONE Stop: 04/10/19 11:48 Last Admin: 04/10/19 13:17 Dose: 40 mg Ferric Sodium Gluconate Complex 250 mg/ Sodium Chloride 120 mls @ 50 mls/hr IV ONETIME ONE Stop: 04/11/19 11:23 Last Admin: 04/11/19 09:49 Dose: 50 mls/hr Piperacillin Sod/Tazobactam (Sod 4.5 gm/ Sodium Chloride) 100 mls @ 25 mls/hr IV Q8H [facility] Last Admin: 04/12/19 17:20 Dose: Not Given Piperacillin Sod/Tazobactam (Sod 4.5 gm/ Sodium Chloride) 100 mls @ 200 mls/hr IV ONETIME ONE Stop: 04/11/19 11:29 Last Admin: 04/11/19 12:41 Dose: 200 mls/hr Vancomycin HCl 1 gm/Vancomycin HCl 250 mg/ Sodium Chloride 250 mls @ 166.667 mls/hr IV Q12H [facility] Albumin Human (Flexbumin 25%) 12.5 gm in 50 mls @ 100 mls/hr IV ONETIME ONE Stop: 04/11/19 11:06 Last Admin: 04/11/19 12:08 Dose: 100 mls/hr Miconazole (Micatin 2% Crm) 0 gm TOP DAILY PRN PRN Reason: Rash Potassium Chloride (Klor-Con M20) 40 meq PO ONETIME ONE Stop: 04/11/19 08:00 Last Admin: 04/11/19 08:56 Dose: 40 meq - Exam Quality Assessment: DVT Prophylaxis General: Alert, Oriented (mostly ), Cooperative, No Acute Distress HEENT: Pupils Equal, Pupils Reactive, EOMI, Mucous Membr. Moist/[place], Other ( Attempted to visualize bilateral ear canals. Significant purulent material and swelling noted bilaterally. ) Neck: Supple, Trachea Midline Lungs: Clear to Auscultation, Normal Respiratory Effort Cardiovascular: Regular Rate, Regular Rhythm GI/Abdominal Exam: Normal Bowel Sounds, Soft, Non-Tender (Female) Exam: Deferred Extremities: Normal Inspection, Normal Range of Motion, Pedal Edema (1-2+) Skin: Warm, Dry, Intact Wound/Incisions: Drainage (Bilateral purulent drainage from both ears. ), Erythema Improving Neurological: No New Focal Deficit Psy/Mental Status: Alert - Problem List & Annotations (1) Anemia SNOMED Code(s): 076555259 Code(s): D64.9 - ANEMIA, UNSPECIFIED Status: Acute Priority: High Current Visit: Yes Qualifiers: Anemia type: unspecified type Qualified Code(s): D64.9 - Anemia, unspecified (2) CHF (congestive heart failure) SNOMED Code(s): 37103703 Code(s): I50.9 - HEART FAILURE, UNSPECIFIED Status: Chronic Priority: Medium Current Visit: No Qualifiers: Heart failure type: other Qualified Code(s): I50.9 - Heart failure, unspecified (3) Peripheral edema SNOMED Code(s): 394431600 Code(s): R60.9 - EDEMA, UNSPECIFIED Status: Chronic Priority: Medium Current Visit: Yes (4) Hyponatremia SNOMED Code(s): 31354095 Code(s): E87.1 - HYPO-OSMOLALITY AND HYPONATREMIA Status: Chronic Priority: High Current Visit: Yes (5) Schizophrenia SNOMED Code(s): 58880626 Code(s): F20.9 - SCHIZOPHRENIA, UNSPECIFIED Status: Chronic Priority: Medium Current Visit: Yes Qualifiers: Schizophrenia type: paranoid schizophrenia Qualified Code(s): F20.0 - Paranoid schizophrenia (6) Cellulitis SNOMED Code(s): 353095357 Code(s): L03.90 - CELLULITIS, UNSPECIFIED Status: Acute Priority: High Current Visit: Yes Qualifiers: Site of cellulitis: head Qualified Code(s): L03.811 - Cellulitis of head [ any part, except face] (7) Hyperlipidemia SNOMED Code(s): 86392016 Code(s): E78.5 - HYPERLIPIDEMIA, UNSPECIFIED Status: Chronic Priority: Medium Current Visit: No Qualifiers: Hyperlipidemia type: unspecified Qualified Code(s): E78.5 - Hyperlipidemia , unspecified (8) Hypoalbuminemia SNOMED Code(s): 586765814 Code(s): E88.09 - OTH DISORDERS OF PLASMA-PROTEIN METABOLISM, NEC Status: Chronic Priority: Medium Current Visit: No (9) Anemia of chronic illness SNOMED Code(s): 980434387 Code(s): D63.8 - ANEMIA IN OTHER CHRONIC DISEASES CLASSIFIED ELSEWHERE Status: Chronic Priority: High Current Visit: Yes - Problem List Review Problem List Initiated/Reviewed/Updated: Yes - My Orders Last 24 Hours: My Active Orders 04/15/19 05:11 BASIC METABOLIC PANEL,BMP [CHEM] AM CBC WITH AUTO DIFF [HEME] AM MAGNESIUM [CHEM] AM 04/16/19 05:11 BASIC METABOLIC PANEL,BMP [CHEM] AM 04/17/19 05:11 BASIC METABOLIC PANEL,BMP [CHEM] AM 04/18/19 05:11 BASIC METABOLIC PANEL,BMP [CHEM] AM - Plan Plan:: Assessment * Normal chromic, normocytic anemia * History of iron deficiency anemia * Hemoglobin 11 days ago 8.0 --> clinic Hb before admission 7.8 --> admission 9.0--> 7.5--> 7.2-->8.5-->7.9-->8.2 * Hemoglobin February 27: 9.3 * Rectal exam from emergency room provider was negative for Hemoccult blood * Iron def on anemia of chronic disease. * On home multivitamin supplement with folic acid and iron once a day * Iron and percent saturation is low confirming iron deficiency * Folic acid and vitamin B12 are normal * Given IV iron during hospitalization * Acute on chronic CHF * Unknown type since we do not have an echo report available * Echo obtained and pending * It appears she has not been following her fluid restriction * Acute on Chronic Hyponatremia - likely hypervolemic secondary to CHF * Unable to get plasma osmolality * Urine osmolality and urine sodium not performed before Lasix given * Sodium is actually improved from 11 days ago from 123 and now 133 * Malnutrition/Hypoalbuminemia/Iron def * malnutrition likely contributing to overall lolly issues. * February 27, 2019 albumin was 1.8--> today 1.8. Patient was given albumin in the emergency room. * This may be worsening lower extremity edema. * 4+ lower extremity pitting edema * Scalp psoriasis with purulent skin infection - improving; Positive MRSA screen * History of schizophrenia, dementia, heart failure with hypertension, psoriasis , hypothyroidism, COPD, and multiple other chronic medical issues Plan * CBC, CMP, Mg in am * Severe scalp infection: Vancomycin and Zosyn. Continue Bactroban topically. Shampoo scalp with baby shampoo bid. * Increase Fluid restriction to 1800 mL a day * Reconciled meds and continue topical treatment for psoriasis * Follow hemoglobin closely. If hemoglobin drops to less than 7.0, consider transfusion. * Encourage food over liquids. May benefit from Dietary consult while in the hospital, but may not be available on the weekend. * Echocardiogram results pending. * CODE STATUS: full code * VTE prophylaxis with SCDs * Length of stay will be greater than 96 hours due to need for continued IV abx.
[2019-04-14] MEDS: Mirtazapine 15 MG Tab PO SCH (21:42)
[2019-04-14] MEDS: Donepezil 10 MG Tab PO SCH (21:42)
[2019-04-14] MEDS: CHLORHEXIDINE 4% TOP SCH (21:47)
[2019-04-14] MEDS: Carboxymethylcellulose Sodium 1% Ophth Gel 15 ML Bottle EYEBOTH SCH (21:53)
[2019-04-15] MEDS: Pantoprazole 40 MG Tab.CR PO SCH (06:52)
[2019-04-15] MEDS: Levothyroxine 88 MCG Tab PO SCH (06:52)
[2019-04-15] MEDS: Piperacillin/Tazobactam 4.5 GM in Sodium Chloride 0.9% 100 ML IV SCH (06:52)
--- NOTE | 2019-04-15 09:43 | PCM.PN ---
- General Info Date of Service: 04/15/19 Admission Dx/Problem (Free Text): Admission Diagnosis/Problem Admission Diagnosis/Problem Anemia Subjective Update: In to see Beckie. Her face and head continue to improve. She continues to have some drainage from both ears. No fevers. WBC is normal. Hgb has again trended down today from last night. Na continues to improve slowly. No new concerns. Echo has returned and was reviewed. She continues to be confused at times and have random outbursts. She is able to be re-directed. Functional Status: Reports: Pain Controlled, Tolerating Diet, Ambulating, Urinating. Denies: New Symptoms - Review of Systems General: Reports: No Symptoms. Denies: Fever, Weakness, Fatigue, Malaise, Chills HEENT: Reports: No Symptoms. Denies: Headaches, Sore Throat Pulmonary: Reports: No Symptoms. Denies: Shortness of Breath, Cough, Wheezing Cardiovascular: Reports: No Symptoms. Denies: Chest Pain, Palpitations, Edema Gastrointestinal: Reports: No Symptoms. Denies: Abdominal Pain, Constipation, Diarrhea, Hematochezia, Melena, Nausea, Vomiting Genitourinary: Reports: No Symptoms. Denies: Pain Musculoskeletal: Reports: No Symptoms Skin: Reports: No Symptoms. Denies: Cyanosis Neurological: Reports: Confusion, Pre-Existing Deficit (schizophrenia ) - Patient Data Vitals - Most Recent: Last Vital Signs Temp 97.3 F 04/15/19 03:46 Pulse 83 04/15/19 03:46 Resp 19 04/15/19 03:46 BP 110/58 L 04/15/19 03:46 Pulse Ox 97 04/15/19 03:46 Weight - Most Recent: 188 lb 8 oz I&O - Last 24 Hours: Intake & Output 04/14/19 04/15/19 04/15/19 22:59 06:59 14:59 Intake Total 1170 350 300 Output Total 1000 1100 Balance 170 350 -800 Lab Results Last 24 Hours: Laboratory Results - last 24 hr 04/14/19 04/15/19 04/15/19 Range/Units 08:35 05:20 05:20 WBC 7.88 (3.98-10.04) K/mm3 RBC 2.70 L (3.98-5.22) M/mm3 Hgb 7.4 L (11.2-15.7) gm/dl Hct 24.0 L (34.1-44.9) % MCV 88.9 (79.4-94.8) fl MCH 27.4 (25.6-32.2) pg MCHC 30.8 L (32.2-35.5) g/dl RDW Std Deviation 61.5 H (36.4-46.3) fL Plt Count 507 H (182-369) K/mm3 MPV 9.0 L (9.4-12.3) fl Neutrophils % (Manual) 63 H (40-60) % Band Neutrophils % 0 (0-10) % Lymphocytes % (Manual) 22 (20-40) % Atypical Lymphs % 0 % Monocytes % (Manual) 4 (2-10) % Eosinophils % (Manual) 11 H (0.7-5.8) % Basophils % (Manual) 0 L (0.1-1.2) Platelet Estimate Adequate Anisocytosis 1+ slight RBC Morph Comment Not Reportable Sodium 133 L 134 L (136-145) mEq/L Potassium 3.7 3.6 (3.5-5.1) mEq/L Chloride 100 102 (98-107) mEq/L Carbon Dioxide 28 28 (21-32) mEq/L Anion Gap 8.7 7.6 (5-15) BUN 12 12 (7-18) mg/dL Creatinine 1.0 1.2 H (0.55-1.02) mg/dL Est Cr Clr Drug Dosing 51.81 43.18 mL/min Estimated GFR (MDRD) 56 45 (>60) mL/min BUN/Creatinine Ratio 12.0 L 10.0 L (14-18) Glucose 110 97 (80-115) mg/dL Calcium 8.0 L 7.4 L (8.5-10.1) mg/dL Magnesium 1.8 1.9 (1.8-2.4) mg/dl Total Bilirubin 0.3 (0.2-1.0) mg/dL AST 16 (15-37) U/L ALT 16 (14-59) U/L Alkaline Phosphatase 56 (46-116) U/L Total Protein 5.9 L (6.4-8.2) g/dl Albumin 1.9 L (3.4-5.0) g/dl Globulin 4.0 gm/dL Albumin/Globulin Ratio 0.5 L (1-2) Med Orders - Current: Current Medications Acetaminophen (Tylenol) 650 mg PO Q4H PRN PRN Reason: Pain (Mild 1-3)/fever Last Admin: 04/14/19 13:39 Dose: 650 mg Aripiprazole (Abilify) 2 mg PO BEDTIME NAEL Last Admin: 04/14/19 21:42 Dose: 2 mg Artificial Tears (Refresh Liquigel 1%) 0 ml EYEBOTH BEDTIME NAEL Last Admin: 04/14/19 21:53 Dose: 1 drop Cholecalciferol (Vitamin D3) 50 mcg PO DAILY NAEL Last Admin: 04/14/19 09:17 Dose: 50 mcg Clonazepam (Klonopin) 1 mg PO BID NAEL Last Admin: 04/14/19 21:42 Dose: 1 mg Clozapine (Clozapine) 200 mg PO DAILY NAEL Last Admin: 04/14/19 09:19 Dose: 200 mg Clozapine (Clozapine) 300 mg PO BEDTIME NAEL Last Admin: 04/14/19 21:42 Dose: 300 mg Donepezil HCl (Aricept) 10 mg PO BEDTIME NAEL Last Admin: 04/14/19 21:42 Dose: 10 mg Dorzolamide/Timolol (Cosopt 2%-0.5% Ophth Soln) 0 ml EYEBOTH BID [facility] Last Admin: 04/14/19 21:45 Dose: 1 drop Fenofibrate (Tricor) 145 mg PO DAILY NAEL Last Admin: 04/14/19 09:21 Dose: 145 mg Ferrous Sulfate (Ferrous Sulfate) 324 mg PO DAILY NAEL Last Admin: 04/14/19 09:22 Dose: 324 mg Folic Acid (Folic Acid) 1 mg PO DAILY [facility] Last Admin: 04/14/19 09:22 Dose: 1 mg Furosemide (Lasix) 40 mg PO DAILY [facility] Last Admin: 04/14/19 09:23 Dose: 40 mg Guaifenesin (Robitussin) 100 mg PO TID PRN PRN Reason: Cough Vancomycin HCl 1 gm/ Sodium (Chloride) 250 mls @ 250 mls/hr IV Q12H [facility] Last Admin: 04/15/19 00:50 Dose: 250 mls/hr Piperacillin Sod/Tazobactam (Sod 4.5 gm/ Sodium Chloride) 100 mls @ 25 mls/hr IV Q8H [facility]EL Last Admin: 04/15/19 06:52 Dose: 25 mls/hr Levothyroxine Sodium (Synthroid) 88 mcg PO ACBREAKFAST [facility] Last Admin: 04/15/19 06:52 Dose: 88 mcg Memantine (Namenda) 10 mg PO BID [facility] Last Admin: 04/14/19 21:42 Dose: 10 mg Mirtazapine (Remeron) 7.5 mg PO BEDTIME [facility] Last Admin: 04/14/19 21:42 Dose: 7.5 mg Multivitamins (Thera) 1 each PO DAILY [facility] Last Admin: 04/14/19 09:21 Dose: 1 each Mupirocin (Bactroban Oint) 0 gm TOP BID [facility] Last Admin: 04/14/19 21:46 Dose: 1 applic Non-Formulary Medication (Hibclen Wash.) 1 applic TOP [facility] [facility] Last Admin: 04/13/19 20:38 Dose: 1 applic Ondansetron HCl (Zofran) 4 mg IV Q4H PRN PRN Reason: Nausea/Vomiting Pantoprazole Sodium (Protonix) 40 mg PO DAILY@0700 [facility] Last Admin: 04/15/19 06:52 Dose: 40 mg Chlorhexidine 4% 0 each TOP BEDTIME [facility] Last Admin: 04/14/19 21:47 Dose: Not Given Levocarnitine 1 Gram (/10 Ml Own Med) 0 each PO BID [facility] Last Admin: 04/14/19 21:47 Dose: 1 each Tacrolimus 0.1% (Ointment Own Med) 0 each TOP BID [facility] Last Admin: 04/14/19 21:52 Dose: 1 each Miconazole Powder 0 each TOP DAILY PRN PRN Reason: Rash Pyridoxine HCl (Vitamin B6-Pyridoxine) 50 mg PO DAILY [facility] Last Admin: 04/14/19 09:18 Dose: 50 mg Saccharomyces Boulardii (Florastor) 250 mg PO BID [facility] Last Admin: 04/14/19 21:42 Dose: 250 mg Sodium Chloride (Saline Flush) 10 ml FLUSH ASDIRECTED PRN PRN Reason: Keep Vein Open Last Admin: 04/10/19 13:20 Dose: 10 ml Vancomycin HCl (Pharmacy To Dose - Vancomycin) 0 dose .XX ASDIRECTED PRN PRN Reason: RX TO DOSE VANCOMYCIN Discontinued Medications Furosemide (Lasix) 40 mg IVPUSH NOW ONE Stop: 04/10/19 11:48 Last Admin: 04/10/19 13:17 Dose: 40 mg Ferric Sodium Gluconate Complex 250 mg/ Sodium Chloride 120 mls @ 50 mls/hr IV ONETIME ONE Stop: 04/11/19 11:23 Last Admin: 04/11/19 09:49 Dose: 50 mls/hr Piperacillin Sod/Tazobactam (Sod 4.5 gm/ Sodium Chloride) 100 mls @ 25 mls/hr IV Q8H [facility] Last Admin: 04/12/19 17:20 Dose: Not Given Piperacillin Sod/Tazobactam (Sod 4.5 gm/ Sodium Chloride) 100 mls @ 200 mls/hr IV ONETIME ONE Stop: 04/11/19 11:29 Last Admin: 04/11/19 12:41 Dose: 200 mls/hr Vancomycin HCl 1 gm/Vancomycin HCl 250 mg/ Sodium Chloride 250 mls @ 166.667 mls/hr IV Q12H [facility] Albumin Human (Flexbumin 25%) 12.5 gm in 50 mls @ 100 mls/hr IV ONETIME ONE Stop: 04/11/19 11:06 Last Admin: 04/11/19 12:08 Dose: 100 mls/hr Miconazole (Micatin 2% Crm) 0 gm TOP DAILY PRN PRN Reason: Rash Potassium Chloride (Klor-Con M20) 40 meq PO ONETIME ONE Stop: 04/11/19 08:00 Last Admin: 04/11/19 08:56 Dose: 40 meq - Exam Quality Assessment: DVT Prophylaxis General: Alert, Oriented (mostly ), Cooperative, No Acute Distress HEENT: Pupils Equal, Pupils Reactive, EOMI, Mucous Membr. Moist/[place] Neck: Supple, Trachea Midline Lungs: Clear to Auscultation, Normal Respiratory Effort, Rales Cardiovascular: Regular Rate, Regular Rhythm GI/Abdominal Exam: Normal Bowel Sounds, Soft, Non-Tender (Female) Exam: Deferred Back Exam: Normal Inspection, Full Range of Motion Extremities: Normal Inspection, Normal Range of Motion, Non-Tender, Normal Capillary Refill, Pedal Edema (1+) Peripheral Pulses: 2+: Radial (L), Radial (R), Dorsalis Pedis (L), Dorsalis Pedis (R) Skin: Warm, Dry, Intact Wound/Incisions: Drainage (improving ), Erythema Improving Neurological: No New Focal Deficit Psy/Mental Status: Alert - Problem List & Annotations (1) Anemia SNOMED Code(s): 935942138 Code(s): D64.9 - ANEMIA, UNSPECIFIED Status: Acute Priority: High Current Visit: Yes Qualifiers: Anemia type: unspecified type Qualified Code(s): D64.9 - Anemia, unspecified (2) CHF (congestive heart failure) SNOMED Code(s): 22602390 Code(s): I50.9 - HEART FAILURE, UNSPECIFIED Status: Chronic Priority: Medium Current Visit: No Qualifiers: Heart failure type: other Qualified Code(s): I50.9 - Heart failure, unspecified (3) Peripheral edema SNOMED Code(s): 340004126 Code(s): R60.9 - EDEMA, UNSPECIFIED Status: Chronic Priority: Medium Current Visit: Yes (4) Hyponatremia SNOMED Code(s): 58860891 Code(s): E87.1 - HYPO-OSMOLALITY AND HYPONATREMIA Status: Chronic Priority: High Current Visit: Yes (5) Schizophrenia SNOMED Code(s): 30236835 Code(s): F20.9 - SCHIZOPHRENIA, UNSPECIFIED Status: Chronic Priority: Medium Current Visit: Yes Qualifiers: Schizophrenia type: paranoid schizophrenia Qualified Code(s): F20.0 - Paranoid schizophrenia (6) Cellulitis SNOMED Code(s): 092774836 Code(s): L03.90 - CELLULITIS, UNSPECIFIED Status: Acute Priority: High Current Visit: Yes Qualifiers: Site of cellulitis: head Qualified Code(s): L03.811 - Cellulitis of head [ any part, except face] (7) Hyperlipidemia SNOMED Code(s): 67647774 Code(s): E78.5 - HYPERLIPIDEMIA, UNSPECIFIED Status: Chronic Priority: Medium Current Visit: No Qualifiers: Hyperlipidemia type: unspecified Qualified Code(s): E78.5 - Hyperlipidemia , unspecified (8) Hypoalbuminemia SNOMED Code(s): 200380708 Code(s): E88.09 - OTH DISORDERS OF PLASMA-PROTEIN METABOLISM, NEC Status: Chronic Priority: Medium Current Visit: No (9) Anemia of chronic illness SNOMED Code(s): 017309405 Code(s): D63.8 - ANEMIA IN OTHER CHRONIC DISEASES CLASSIFIED ELSEWHERE Status: Chronic Priority: High Current Visit: Yes - Problem List Review Problem List Initiated/Reviewed/Updated: Yes - My Orders Last 24 Hours: My Active Orders 04/15/19 05:20 RETICULOCYTE COUNT [HEME] Routine 04/15/19 16:00 HEMOGLOBIN/HEMATOCRIT,HH [HEME] Routine 04/16/19 05:11 BASIC METABOLIC PANEL,BMP [CHEM] AM CBC WITH AUTO DIFF [HEME] AM MAGNESIUM [CHEM] AM 04/17/19 05:11 BASIC METABOLIC PANEL,BMP [CHEM] AM 04/18/19 05:11 BASIC METABOLIC PANEL,BMP [CHEM] AM - Plan Plan:: Assessment * Normal chromic, normocytic anemia * History of iron deficiency anemia * Hemoglobin 11 days ago 8.0 --> clinic Hb before admission 7.8 --> admission 9.0--> 7.5--> 7.2-->8.5-->7.9-->8.2-->7.4 * Hemoglobin February 27: 9.3 * Rectal exam from emergency room provider was negative for Hemoccult blood * Iron def on anemia of chronic disease. * On home multivitamin supplement with folic acid and iron once a day * Iron and percent saturation is low confirming iron deficiency * Folic acid and vitamin B12 are normal * Given IV iron during hospitalization * Double home dose of PO iron * Repeat Hgb tonight at 1600 * Reticulocyte count elevated at 3.01 * Blood smear reviewed * Chronic CHF with pedal edema * Unknown type since we do not have an echo report available * Echo obtained on 04/14/19: 1. LVEF 60-65% 2. Normal LV size, thickness, systolic function. 3. Normal LV diastolic filling 4. Normal tricuspid valve 5. RVSP is normal at 37.2 mm Hg. 6. Inferior vena cava is normal * It appears she has not been following her fluid restriction * Acute on Chronic Hyponatremia - likely hypervolemic secondary to CHF * Unable to get plasma osmolality * Urine osmolality and urine sodium not performed before Lasix given * Sodium is actually improved from 11 days ago from 123 and now 134 * Malnutrition/Hypoalbuminemia/Iron def * malnutrition likely contributing to overall lolly issues. * February 27, 2019 albumin was 1.8--> today 1.8. Patient was given albumin in the emergency room. * This may be worsening lower extremity edema. * 4+ lower extremity pitting edema on admission; improved * Scalp psoriasis with purulent skin infection - improving; Positive MRSA screen - Consider pustular psoriasis * History of schizophrenia, dementia, heart failure with hypertension, psoriasis , hypothyroidism, COPD, and multiple other chronic medical issues Plan * CBC, CMP, Mg in am * Repeat HH and procalcitonin at 1600 tonight * Severe scalp infection: D/C Vancomycin and Zosyn. Continue Bactroban topically. Shampoo scalp with baby shampoo bid. * Switch to Bactroban and Levaquin for 21 total days of treatment * Increase Fluid restriction to 1800 mL a day * Reconciled meds and continue topical treatment for psoriasis * Follow hemoglobin closely. If hemoglobin drops to less than 7.0, consider transfusion. * Encourage food over liquids. May benefit from Dietary consult while in the hospital. * CODE STATUS: full code * VTE prophylaxis with SCDs * Length of stay will be greater than 96 hours due to need for continued IV abx.
[2019-04-15] MEDS: Furosemide 40 MG Tab PO SCH (09:44)
[2019-04-15] MEDS: Multivitamins,Therapeutic Tab PO SCH (09:44)
[2019-04-15] MEDS: Vitamin B6-pyridOXINE 50 MG Tab PO SCH (09:44)
[2019-04-15] MEDS: Saccharomyces Boulardii (Probiotic) 250 MG Cap PO SCH ×2 (09:44→21:03)
[2019-04-15] MEDS: Mupirocin Oint 22 GM Tube TOP SCH ×2 (09:44→21:04)
[2019-04-15] MEDS: Ferrous Sulfate 324 MG Tab.EC PO SCH ×2 (09:44→16:33)
[2019-04-15] MEDS: Fenofibrate Nanocrystallized 145 MG Tab PO SCH (09:45)
[2019-04-15] MEDS: Cholecalciferol (Vitamin D3) 25 MCG Tab PO SCH (09:45)
[2019-04-15] MEDS: Dorzolamide/Timolol 2%-0.5% Ophth Soln 10 ML Bottle EYEBOTH SCH ×2 (09:45→21:04)
[2019-04-15] MEDS: cloZAPine 100 MG Tab PO SCH ×2 (09:45→21:03)
[2019-04-15] MEDS: ClonazePAM 1 MG Tab PO SCH ×2 (09:45→21:01)
[2019-04-15] MEDS: Folic Acid 1 MG Tab PO SCH (09:45)
[2019-04-15] MEDS: Memantine 10 MG Tab PO SCH ×2 (09:46→21:01)
[2019-04-15] MEDS: TACROLIMUS 0.1% TOP SCH ×2 (09:46→21:05)
[2019-04-15] MEDS: LEVOCARNITINE PO SCH ×2 (09:46→21:05)
[2019-04-15] MEDS: Sulfamethoxazole/Trimethoprim 800-160 MG Tab PO SCH ×2 (13:36→21:02)
[2019-04-15] MEDS: Levofloxacin 750 MG Tab PO SCH (13:36)
[2019-04-15] MEDS: [UNRECOGNIZED DRUG - OTHER] TOP SCH (20:59)
[2019-04-15] MEDS: Donepezil 10 MG Tab PO SCH (21:01)
[2019-04-15] MEDS: Mirtazapine 15 MG Tab PO SCH (21:03)
[2019-04-15] MEDS: Carboxymethylcellulose Sodium 1% Ophth Gel 15 ML Bottle EYEBOTH SCH (21:05)
[2019-04-15] MEDS: CHLORHEXIDINE 4% TOP SCH (21:05)
[2019-04-16] MEDS: Levothyroxine 88 MCG Tab PO SCH (06:57)
[2019-04-16] MEDS: Ferrous Sulfate 324 MG Tab.EC PO SCH (06:58)
[2019-04-16] MEDS: Pantoprazole 40 MG Tab.CR PO SCH (06:58)
[2019-04-16] MEDS: ClonazePAM 1 MG Tab PO SCH ×2 (09:54→21:21)
[2019-04-16] MEDS: Folic Acid 1 MG Tab PO SCH (09:54)
[2019-04-16] MEDS: Sulfamethoxazole/Trimethoprim 800-160 MG Tab PO SCH ×2 (09:54→21:22)
[2019-04-16] MEDS: Cholecalciferol (Vitamin D3) 25 MCG Tab PO SCH (09:54)
[2019-04-16] MEDS: Multivitamins,Therapeutic Tab PO SCH (09:54)
[2019-04-16] MEDS: Vitamin B6-pyridOXINE 50 MG Tab PO SCH (09:55)
[2019-04-16] MEDS: cloZAPine 100 MG Tab PO SCH ×2 (09:55→21:23)
[2019-04-16] MEDS: Furosemide 40 MG Tab PO SCH (09:55)
[2019-04-16] MEDS: Fenofibrate Nanocrystallized 145 MG Tab PO SCH (09:55)
[2019-04-16] MEDS: Memantine 10 MG Tab PO SCH ×2 (09:55→21:22)
[2019-04-16] MEDS: Saccharomyces Boulardii (Probiotic) 250 MG Cap PO SCH ×2 (09:56→21:21)
[2019-04-16] MEDS: Mupirocin Oint 22 GM Tube TOP SCH ×2 (09:56→21:24)
[2019-04-16] MEDS: LEVOCARNITINE PO SCH ×2 (09:57→21:25)
[2019-04-16] MEDS: Dorzolamide/Timolol 2%-0.5% Ophth Soln 10 ML Bottle EYEBOTH SCH ×2 (09:57→21:24)
[2019-04-16] MEDS: TACROLIMUS 0.1% TOP SCH ×2 (09:58→21:25)
--- NOTE | 2019-04-16 10:39 | PCM.PN ---
- General Info Date of Service: 04/16/19 Subjective Update: Feeling fine Slept ok Tolerating diet Ambulating to and from restroom Large BM this morning - Patient Data Vitals - Most Recent: Last Vital Signs Temp 98.2 F 04/16/19 09:45 Pulse 94 04/16/19 09:45 Resp 16 04/16/19 09:45 BP 140/59 L 04/16/19 09:45 Pulse Ox 97 04/16/19 09:45 Weight - Most Recent: 86.046 kg - Exam Physical Findings Comments:: General: Alert, Oriented, Cooperative, No Acute Distress HEENT: Pupils Equal, Pupils Reactive, EOMI, Mucous Membr. Moist/[place] Neck: Supple, Trachea Midline Lungs: Clear to Auscultation, Normal Respiratory Effort, Rales Cardiovascular: Regular Rate, Regular Rhythm GI/Abdominal Exam: Normal Bowel Sounds, Soft, Non-Tender (Female) Exam: Deferred Back Exam: Normal Inspection, Full Range of Motion Extremities: Normal Inspection, Normal Range of Motion, Non-Tender, Normal Capillary Refill, Pedal Edema (1+) Peripheral Pulses: 2+: Radial (L), Radial (R), Dorsalis Pedis (L), Dorsalis Pedis (R) Skin: Warm, Dry, Intact Wound/Incisions: Drainage (improving ), Erythema Improving Neurological: No New Focal Deficit Psy/Mental Status: Alert - Problem List & Annotations (1) Anemia SNOMED Code(s): 299964744 Code(s): D64.9 - ANEMIA, UNSPECIFIED Status: Acute Priority: High Current Visit: Yes Qualifiers: Anemia type: unspecified type Qualified Code(s): D64.9 - Anemia, unspecified (2) Cellulitis SNOMED Code(s): 019095082 Code(s): L03.90 - CELLULITIS, UNSPECIFIED Status: Acute Priority: High Current Visit: Yes Qualifiers: Site of cellulitis: head Qualified Code(s): L03.811 - Cellulitis of head [ any part, except face] (3) Skin rash SNOMED Code(s): 488001790 Code(s): R21 - RASH AND OTHER NONSPECIFIC SKIN ERUPTION Status: Acute Current Visit: Yes (4) Anemia of chronic illness SNOMED Code(s): 005662968 Code(s): D63.8 - ANEMIA IN OTHER CHRONIC DISEASES CLASSIFIED ELSEWHERE Status: Chronic Priority: High Current Visit: Yes (5) Hyponatremia SNOMED Code(s): 45597298 Code(s): E87.1 - HYPO-OSMOLALITY AND HYPONATREMIA Status: Chronic Priority: High Current Visit: Yes (6) Schizophrenia SNOMED Code(s): 43305256 Code(s): F20.9 - SCHIZOPHRENIA, UNSPECIFIED Status: Chronic Priority: Medium Current Visit: Yes Qualifiers: Schizophrenia type: paranoid schizophrenia Qualified Code(s): F20.0 - Paranoid schizophrenia (7) Altered mental status SNOMED Code(s): 862768924 Code(s): R41.82 - ALTERED MENTAL STATUS, UNSPECIFIED Status: Acute Priority: High Current Visit: No Qualifiers: Altered mental status type: delirium Qualified Code(s): R41.0 - Disorientation, unspecified (8) Anxiety SNOMED Code(s): 53123438 Code(s): F41.9 - ANXIETY DISORDER, UNSPECIFIED Status: Acute Priority: High Current Visit: No (9) Depression SNOMED Code(s): 58733644 Code(s): F32.9 - MAJOR DEPRESSIVE DISORDER, SINGLE EPISODE, UNSPECIFIED Status: Acute Priority: High Current Visit: No Qualifiers: Depression Type: unspecified Qualified Code(s): F32.9 - Major depressive disorder, single episode, unspecified - Problem List Review Problem List Initiated/Reviewed/Updated: Yes - Plan Plan:: Purulent cellulitis with underlying psoriasis Possibly pustular psoriasis, will need to f/u On IV antibiotics since admission--> transitioned to PO Currently on Bactrim and Levaquin Clinically improved No WBC count or fever PLAN - Continue Bactrim and Levaquin to complete 21 days - Monitor temperature - F/U lab results - Recommend PCP referral to dermatology - Encourage daily baths and personal hygiene Iron deficiency anemia Anemia of chronic disease No signs of blood loss Negative FOBT on admission to ED Iron deficit =1,945mg + Elevated reticulocyte count Normal folic acid and B12 Given IV iron during this admission PLAN - Change iron supplementation to Q48h to optimize utilization - Discontinue home vitamin supplementation - Monitor for blood loss Chronic kidney disease, stage 3A Hyponatremia, improving BL pedal edema Adequate urine output No acute changes in mental status PLAN - Monitor urine output - Renally dosed medications - Avoid nephrotoxic agents - Daily labs with adjustments as needed Hypertension BP stable PLAN - Continue to monitor - Adjust management as necessary Hypothyroidism No acute issues Schizophrenia Dementia No delirium or acute issues PLAN - Continue home medications Heart failure, ruled out by echocardiogram 04/14/19 (EF 60-65%) PROPHYLAXIS DVT- SCDs GI- not indicated CODE STATUS: FULL CODE DISPOSITION: Patient admitted for anemia with hyponatremia and purulent cellulitis. Ok to transition to outpatient for placement as per PT and OT recommendations.
[2019-04-16] MEDS: Levofloxacin 750 MG Tab PO SCH (12:50)
[2019-04-16] MEDS: Donepezil 10 MG Tab PO SCH (21:22)
[2019-04-16] MEDS: Mirtazapine 15 MG Tab PO SCH (21:23)
[2019-04-16] MEDS: CHLORHEXIDINE 4% TOP SCH (21:25)
[2019-04-16] MEDS: Carboxymethylcellulose Sodium 1% Ophth Gel 15 ML Bottle EYEBOTH SCH (21:25)
[2019-04-17] MEDS: Pantoprazole 40 MG Tab.CR PO SCH ×2 (05:43→06:08)
[2019-04-17] MEDS: Levothyroxine 88 MCG Tab PO SCH (05:43)
[2019-04-17 08:36] VITALS: BP 125/61; PULSE 95
--- NOTE | 2019-04-17 08:50 | PCM.DCSUM1 ---
Discharge Summary - Hospital Course HPI Initial Comments: 63-year-old female with history of schizophrenia, dementia, hypertensive heart disease with heart failure, psoriasis, chronic hyponatremia, COPD, and multiple other medical problems was brought to the emergency room at recommendations of her primary care provider because of a low hemoglobin of 7.8. Patient is a very poor historian, therefore history mainly obtained through [place] records, some patient interview, and emergency providers note. Patient is apparently gained 3 pounds of weight over the last 3 days. She denies any shortness of breath. She has not been compliant with her fluid restriction and lab work drawn prior to emergency room visit today showed a sodium of 127. Her sodium on February 27, 2019 was 123, March 30, 2019 131 here in the emergency room, and today 127. Hemoglobin in February was 9.3 and on March 30 was 8.0. Today it is 7.8. Patient has had increasing lower extremity edema and has been having her legs wrapped with Robel wraps. Anemia is normochromic and normocytic. She has a history of chronic iron deficiency anemia. In the emergency room blood work was attempted, but after multiple tries they' re unable to get any blood. UA was performed, but no urine osmolality or urine sodium was done. Patient was given Lasix over 5 hours prior to admission. She is on chronic Lasix therapy. ECG showed her rate of 76 bpm. Normal sinus rhythm. First-degree AV block. Otherwise normal ECG. Chest x-ray showed no acute changes. Rectal exam was negative for guaiac blood Diagnosis: Stroke: No - Discharge Data Discharge Date: 04/17/19 (Admit date: 04/12/19) Discharge Disposition: DC/Tfer to SNF 03 Condition: Good - Referral to Home Health Primary Care Physician: Nikko Stevens MD - Discharge Diagnosis/Problem(s) (1) Anemia SNOMED Code(s): 890195972 ICD Code: D64.9 - ANEMIA, UNSPECIFIED Status: Acute Priority: High Qualifiers: Anemia type: unspecified type Qualified Code(s): D64.9 - Anemia, unspecified (2) CHF (congestive heart failure) SNOMED Code(s): 50942856 ICD Code: I50.9 - HEART FAILURE, UNSPECIFIED Status: Chronic Priority: Medium Qualifiers: Heart failure type: other Qualified Code(s): I50.9 - Heart failure, unspecified (3) Peripheral edema SNOMED Code(s): 533739693 ICD Code: R60.9 - EDEMA, UNSPECIFIED Status: Chronic Priority: Medium (4) Hyponatremia SNOMED Code(s): 03971574 ICD Code: E87.1 - HYPO-OSMOLALITY AND HYPONATREMIA Status: Chronic Priority: High (5) Schizophrenia SNOMED Code(s): 90497712 ICD Code: F20.9 - SCHIZOPHRENIA, UNSPECIFIED Status: Chronic Priority: Medium Qualifiers: Schizophrenia type: paranoid schizophrenia Qualified Code(s): F20.0 - Paranoid schizophrenia (6) Cellulitis SNOMED Code(s): 321712485 ICD Code: L03.90 - CELLULITIS, UNSPECIFIED Status: Acute Priority: High Qualifiers: Site of cellulitis: head Qualified Code(s): L03.811 - Cellulitis of head [ any part, except face] (7) Hyperlipidemia SNOMED Code(s): 11246134 ICD Code: E78.5 - HYPERLIPIDEMIA, UNSPECIFIED Status: Chronic Priority: Medium Qualifiers: Hyperlipidemia type: unspecified Qualified Code(s): E78.5 - Hyperlipidemia , unspecified (8) Hypoalbuminemia SNOMED Code(s): 282539586 ICD Code: E88.09 - OTH DISORDERS OF PLASMA-PROTEIN METABOLISM, NEC Status: Chronic Priority: Medium (9) Anemia of chronic illness SNOMED Code(s): 877249072 ICD Code: D63.8 - ANEMIA IN OTHER CHRONIC DISEASES CLASSIFIED ELSEWHERE Status: Chronic Priority: High - Patient Summary/Data Labs Pending at D/C: Repeat procalcitonin Recommended Follow-up Testing/Procedures: Follow-up with primary care provider within 5-7 days of discharge, sooner if needed. Recommend outpatient follow-up with dermatology. This can be arranged by PCP. Hospital Course: Claudia was initially was initially admitted from the floor due to low hemoglobin levels. Her hemoglobin did fluctuate significantly, however never dropped below 7. Repeat would often show a repeat up in the low to mid eights. Fecal: Blood test was performed in the ED was negative. She is noted to have a history of iron deficiency anemia as well as anemia of chronic disease. Iron panel showed low iron and low percent saturation. Reticulocyte count was elevated. Folic acid and B12 were normal. She was given IV iron infusion 1 dose. Home iron supplementation was changed to every 48 hours to optimize utilization. There were no signs of any blood loss. She was also noted to be hyponatremic with sodium of 125. This did improve up into the low 130s with supplementation of her fluid restriction. It is felt she is not compliant with this. Echocardiogram was obtained on 04/14/19 which rule out heart failure has her ejection fraction was 60-65%. On admission she was noted to have significant purulent cellulitis with underlying psoriasis. There were some concerns over a possible pustular psoriasis and this will need to be followed up with by her primary care provider. She started on IV antibiotics and then switched to Bactrim and Levaquin. Clinically her appearance did improve with this treatment plan. She had multiple purulent draining ulcers from her ears which have improved and crusted over. She's not had a fever or leukocytosis. She does have a history of refusing baths and poor personal hygiene. While here she was receiving twice a day washings of her hair. She was also being showered daily. Daily baths and good personal hygiene should continue after discharge. Suggest possible dermatology referral from PCP due to the significance of her cellulitis. Is on by mouth Bactrim and Levaquin to complete a 21 day course of treatment. 2 L fluid restriction was continued. Orders were placed to recheck a CBC and BMP on 06/21/18 with results to Claudia Davenport's PCP. She was discharged back to [facility] today. She did see PT/ OT while here who confirm need for continued SNF placement. - Patient Instructions Diet: Heart Healthy Diet, Fluid Restriction Fluid Restriction: 2000 mL Activity: As Tolerated Driving: Do Not Drive Showering/Bathing: May Shower Notify Provider of: Fever, Increased Pain, Swelling and Redness, Drainage, Nausea and/or Vomiting Other/Special Instructions: Follow-up with PCP within 5-7 days of discharge. Continue fluid restriction of 2L for hyponatremia. Re-check CBC and BMP on 04/[address] Stevens, [place]. Recommend follow-up with dermatology. This can be arranged through Dr. Stevens's office outpatient. Continue to shampoo/ clean scalp and ears 1-2 times daily. Wash with baby soap and dry completely.Change linens frequently if drainage occurs. Recommend daily bathing. Continue home medications as directed. Iron supplementation was changed to Q48 hours for better absorption. Antibiotics have been prescribed for skin infection. This will be a 21 day course. Continue as directed until out , even if symptoms completely resolve. Should symptoms return or worsen, contact primary care provider or return the the ED. - Discharge Plan *PRESCRIPTION DRUG MONITORING PROGRAM REVIEWED*: No *COPY OF PRESCRIPTION DRUG MONITORING REPORT IN PATIENT CHALO: No Prescriptions/Med Rec: levoFLOXacin [Levaquin] 750 mg PO Q24H #16 tablet Sulfamethoxazole/Trimethoprim [Septra DS] 1 tab PO BID #33 tablet Home Medications: Home Meds Donepezil HCl 10 mg PO BEDTIME 02/07/18 [History] Lactobacillus Acidophilus [Acidophilus] 175 mg PO BID 02/07/18 [History] Levothyroxine [Synthroid] 88 mcg PO DAILY 02/07/18 [History] Pantoprazole [ProTONIX] 40 mg PO DAILY 02/07/18 [History] Memantine HCl [Namenda] 10 mg PO BID 02/11/18 [History] ARIPiprazole [Abilify] 2 mg PO BEDTIME 03/30/19 [History] Carboxymethylcellulose Sodium [Refresh Tears] 1 drop EYEBOTH BEDTIME 03/30/19 [ History] Chlorhexidine 4% 1 applic TOP DAILY 03/30/19 [History] Cholecalciferol (Vitamin D3) [Vitamin D3] 2,000 unit PO DAILY 03/30/19 [History] Dorzolamide HCl/Timolol Maleat [Dorzolamide-Timolol Eye Drops] 1 drop EYEBOTH BID 03/30/19 [History] Econazole Cream 1% 1 applic TOP DAILY PRN 03/30/19 [History] Fenofibrate Nanocrystallized [Fenofibrate] 145 mg PO DAILY 03/30/19 [History] Folic Acid 1 mg PO DAILY 03/30/19 [History] Hibclen Wash. 1 applic TOP MOWESA 03/30/19 [History] Levocarnitine (With Sugar) [Levocarnitine Soln] 10 ml PO BID 03/30/19 [History] Miconazole 1 applic TOP DAILY PRN 03/30/19 [History] Mirtazapine 7.5 mg PO BEDTIME 03/30/19 [History] Mupirocin Oint [Bactroban Oint] 1 applic TOP BID 03/30/19 [History] Polyethylene Glycol 3350 [MiraLAX] 17 gm PO BID PRN 03/30/19 [History] Pyridoxine HCl (Vitamin B6) [Vitamin B-6] 50 mg PO DAILY 03/30/19 [History] Tacrolimus Anhydrous [Tacrolimus] 1 applic TOP BID 03/30/19 [History] cloZAPine [Clozapine] 200 mg PO DAILY 03/30/19 [History] cloZAPine [Clozapine] 300 mg PO BEDTIME 03/30/19 [History] clonazePAM [Klonopin] 1 mg PO BID 03/30/19 [History] guaiFENesin [Robafen] 10 ml PO TID PRN 03/30/19 [History] Furosemide [Lasix] 40 mg PO DAILY 04/10/19 [History] Multivitamin with Iron [Multivitamins with Iron] 1 tab PO DAILY 04/10/19 [ History] Ferrous Sulfate 324 mg PO Q48H tab.ec 04/17/19 [Rx] Sulfamethoxazole/Trimethoprim [Septra DS] 1 tab PO BID #33 tablet 04/17/19 [Rx] levoFLOXacin [Levaquin] 750 mg PO Q24H #16 tablet 04/17/19 [Rx] Oxygen Therapy Mode: Room Air Patient Handouts: Hyponatremia, Psoriasis, Sepsis, Adult, Cellulitis, Adult, [id number] Forms: ED Department Discharge Referrals: Nikko Stevens MD [Primary Care Provider] - 04/23/19 2:30 pm (Please follow-up with your primary care provider on April 23 at 1430. ) - Discharge Summary/Plan Comment DC Time >30 min.: Yes (45 mins ) - General Info Date of Service: 04/17/19 Admission Dx/Problem (Free Text: Admission Diagnosis/Problem Admission Diagnosis/Problem Anemia Functional Status: Reports: Pain Controlled, Tolerating Diet, Ambulating, Urinating. Denies: New Symptoms - Review of Systems General: Reports: No Symptoms. Denies: Fever, Weakness, Fatigue, Malaise, Chills HEENT: Reports: No Symptoms. Denies: Headaches, Sore Throat Pulmonary: Reports: No Symptoms. Denies: Shortness of Breath, Cough, Sputum, Wheezing Cardiovascular: Reports: No Symptoms. Denies: Chest Pain, Palpitations Gastrointestinal: Reports: No Symptoms. Denies: Abdominal Pain, Constipation, Diarrhea, Nausea, Vomiting Genitourinary: Reports: No Symptoms. Denies: Pain Musculoskeletal: Reports: No Symptoms Skin: Reports: No Symptoms. Denies: Cyanosis Neurological: Reports: Confusion (Baseline ), Pre-Existing Deficit ( Shizophrenia ) Psychiatric: Reports: No Symptoms - Patient Data Vitals - Most Recent: Last Vital Signs Temp 98.8 F 04/17/19 08:22 Pulse 95 04/17/19 08:22 Resp 20 04/17/19 08:22 BP 125/61 04/17/19 08:22 Pulse Ox 94 L 04/17/19 08:22 Weight - Most Recent: 181 lb 9.6 oz I&O - Last 24 hours: Intake & Output 04/16/19 04/17/19 04/17/19 22:59 06:59 14:59 Intake Total 180 400 Output Total 1350 Balance 180 -950 Lab Results - Last 24 hrs: Laboratory Results - last 24 hr 04/17/19 Range/Units 05:39 Sodium 132 L (136-145) mEq/L Potassium 3.8 (3.5-5.1) mEq/L Chloride 100 (98-107) mEq/L Carbon Dioxide 26 (21-32) mEq/L Anion Gap 9.8 (5-15) BUN 8 (7-18) mg/dL Creatinine 1.1 H (0.55-1.02) mg/dL Est Cr Clr Drug Dosing 47.10 mL/min Estimated GFR (MDRD) 50 (>60) mL/min BUN/Creatinine Ratio 7.3 L (14-18) Glucose 93 (80-115) mg/dL Calcium 8.5 (8.5-10.1) mg/dL Med Orders - Current: Current Medications Acetaminophen (Tylenol) 650 mg PO Q4H PRN PRN Reason: Pain (Mild 1-3)/fever Last Admin: 04/14/19 13:39 Dose: 650 mg Aripiprazole (Abilify) 2 mg PO BEDTIME NAEL Last Admin: 04/16/19 21:24 Dose: 2 mg Artificial Tears (Refresh Liquigel 1%) 0 ml EYEBOTH BEDTIME NAEL Last Admin: 04/16/19 21:25 Dose: 1 drop Cholecalciferol (Vitamin D3) 50 mcg PO DAILY NAEL Last Admin: 04/16/19 09:54 Dose: 50 mcg Clonazepam (Klonopin) 1 mg PO BID [facility] Last Admin: 04/16/19 21:21 Dose: 1 mg Clozapine (Clozapine) 200 mg PO DAILY [facility] Last Admin: 04/16/19 09:55 Dose: 200 mg Clozapine (Clozapine) 300 mg PO BEDTIME [facility] Last Admin: 04/16/19 21:23 Dose: 300 mg Donepezil HCl (Aricept) 10 mg PO BEDTIME [facility] Last Admin: 04/16/19 21:22 Dose: 10 mg Dorzolamide/Timolol (Cosopt 2%-0.5% Ophth Soln) 0 ml EYEBOTH BID [facility] Last Admin: 04/16/19 21:24 Dose: 1 drop Fenofibrate (Tricor) 145 mg PO DAILY [facility] Last Admin: 04/16/19 09:55 Dose: 145 mg Ferrous Sulfate (Ferrous Sulfate) 324 mg PO Q48H [facility] Folic Acid (Folic Acid) 1 mg PO DAILY [facility] Last Admin: 04/16/19 09:54 Dose: 1 mg Furosemide (Lasix) 40 mg PO DAILY [facility] Last Admin: 04/16/19 09:55 Dose: 40 mg Guaifenesin (Robitussin) 100 mg PO TID PRN PRN Reason: Cough Levofloxacin (Levaquin) 750 mg PO Q24H [facility] Stop: 05/01/19 12:01 Last Admin: 04/16/19 12:50 Dose: 750 mg Levothyroxine Sodium (Synthroid) 88 mcg PO ACBREAKFAST [facility] Last Admin: 04/17/19 05:43 Dose: 88 mcg Memantine (Namenda) 10 mg PO BID [facility] Last Admin: 04/16/19 21:22 Dose: 10 mg Mirtazapine (Remeron) 7.5 mg PO BEDTIME [facility] Last Admin: 04/16/19 21:23 Dose: 7.5 mg Multivitamins (Thera) 1 each PO DAILY [facility] Last Admin: 04/16/19 09:54 Dose: 1 each Mupirocin (Bactroban Oint) 0 gm TOP BID [facility] Last Admin: 04/16/19 21:24 Dose: 1 applic Non-Formulary Medication (Hibclen Wash.) 1 applic TOP M[place]ES[place] [facility] Last Admin: 04/15/19 20:59 Dose: Not Given Ondansetron HCl (Zofran) 4 mg IV Q4H PRN PRN Reason: Nausea/Vomiting Pantoprazole Sodium (Protonix) 40 mg PO DAILY@0700 [facility] Last Admin: 04/17/19 06:08 Dose: Not Given Chlorhexidine 4% 0 each TOP BEDTIME [facility] Last Admin: 04/16/19 21:25 Dose: Not Given Levocarnitine 1 Gram (/10 Ml Own Med) 0 each PO BID [facility] Last Admin: 04/16/19 21:25 Dose: 1 each Tacrolimus 0.1% (Ointment Own Med) 0 each TOP BID [facility] Last Admin: 04/16/19 21:25 Dose: 1 each Miconazole Powder 0 each TOP DAILY PRN PRN Reason: Rash Pyridoxine HCl (Vitamin B6-Pyridoxine) 50 mg PO DAILY [facility] Last Admin: 04/16/19 09:55 Dose: 50 mg Saccharomyces Boulardii (Florastor) 250 mg PO BID [facility] Last Admin: 04/16/19 21:21 Dose: 250 mg Sodium Chloride (Saline Flush) 10 ml FLUSH ASDIRECTED PRN PRN Reason: Keep Vein Open Last Admin: 04/10/19 13:20 Dose: 10 ml Trimethoprim/Sulfamethoxazole (Septra Ds) 1 tab PO BID [facility] Stop: 05/01/19 21:01 Last Admin: 04/16/19 21:22 Dose: 1 tab Discontinued Medications Ferrous Sulfate (Ferrous Sulfate) 324 mg PO DAILY [facility] Last Admin: 04/15/19 09:44 Dose: 324 mg Ferrous Sulfate (Ferrous Sulfate) 324 mg PO BIDMEALS [facility] Last Admin: 04/16/19 06:58 Dose: 324 mg Furosemide (Lasix) 40 mg IVPUSH NOW ONE Stop: 04/10/19 11:48 Last Admin: 04/10/19 13:17 Dose: 40 mg Ferric Sodium Gluconate Complex 250 mg/ Sodium Chloride 120 mls @ 50 mls/hr IV ONETIME ONE Stop: 04/11/19 11:23 Last Admin: 04/11/19 09:49 Dose: 50 mls/hr Piperacillin Sod/Tazobactam (Sod 4.5 gm/ Sodium Chloride) 100 mls @ 25 mls/hr IV Q8H [facility] Last Admin: 04/12/19 17:20 Dose: Not Given Piperacillin Sod/Tazobactam (Sod 4.5 gm/ Sodium Chloride) 100 mls @ 200 mls/hr IV ONETIME ONE Stop: 04/11/19 11:29 Last Admin: 04/11/19 12:41 Dose: 200 mls/hr Vancomycin HCl 1 gm/Vancomycin HCl 250 mg/ Sodium Chloride 250 mls @ 166.667 mls/hr IV Q12H [facility] Albumin Human (Flexbumin 25%) 12.5 gm in 50 mls @ 100 mls/hr IV ONETIME ONE Stop: 04/11/19 11:06 Last Admin: 04/11/19 12:08 Dose: 100 mls/hr Vancomycin HCl 1 gm/ Sodium (Chloride) 250 mls @ 250 mls/hr IV Q12H [facility] Last Admin: 04/15/19 00:50 Dose: 250 mls/hr Piperacillin Sod/Tazobactam (Sod 4.5 gm/ Sodium Chloride) 100 mls @ 25 mls/hr IV Q8H [facility] Last Admin: 04/15/19 06:52 Dose: 25 mls/hr Miconazole (Micatin 2% Crm) 0 gm TOP DAILY PRN PRN Reason: Rash Potassium Chloride (Klor-Con M20) 40 meq PO ONETIME ONE Stop: 04/11/19 08:00 Last Admin: 04/11/19 08:56 Dose: 40 meq Vancomycin HCl (Pharmacy To Dose - Vancomycin) 0 dose .XX ASDIRECTED PRN PRN Reason: RX TO DOSE VANCOMYCIN - Exam Quality Assessment: Reports: DVT Prophylaxis General: Reports: Alert, Oriented (mostly), Cooperative, No Acute Distress HEENT: Reports: Pupils Equal, Pupils Reactive, EOMI, Mucous Membr. Moist/[place] Neck: Reports: Supple, Trachea Midline Lungs: Reports: Clear to Auscultation, Normal Respiratory Effort Cardiovascular: Reports: Regular Rate, Regular Rhythm GI/Abdominal Exam: Normal Bowel Sounds, Soft, Non-Tender, No Distention, No Abnormal Bruit (Female) Exam: Deferred Rectal (Female) Exam: Deferred Back Exam: Reports: Normal Inspection, Full Range of Motion Extremities: Normal Inspection, Normal Range of Motion, Non-Tender, No Pedal Edema, Normal Capillary Refill Skin: Reports: Warm, Dry, Intact Neurological: Reports: No New Focal Deficit Psy/Mental Status: Reports: Alert
[2019-04-17] MEDS: Saccharomyces Boulardii (Probiotic) 250 MG Cap PO SCH (09:34)
[2019-04-17] MEDS: ClonazePAM 1 MG Tab PO SCH (09:35)
[2019-04-17] MEDS: Sulfamethoxazole/Trimethoprim 800-160 MG Tab PO SCH (09:35)
[2019-04-17] MEDS: Multivitamins,Therapeutic Tab PO SCH (09:35)
[2019-04-17] MEDS: Memantine 10 MG Tab PO SCH (09:35)
[2019-04-17] MEDS: Vitamin B6-pyridOXINE 50 MG Tab PO SCH (09:35)
[2019-04-17] MEDS: cloZAPine 100 MG Tab PO SCH (09:35)
[2019-04-17] MEDS: Furosemide 40 MG Tab PO SCH (09:36)
[2019-04-17] MEDS: Dorzolamide/Timolol 2%-0.5% Ophth Soln 10 ML Bottle EYEBOTH SCH (09:36)
[2019-04-17] MEDS: Cholecalciferol (Vitamin D3) 25 MCG Tab PO SCH (09:36)
[2019-04-17] MEDS: Fenofibrate Nanocrystallized 145 MG Tab PO SCH (09:36)
[2019-04-17] MEDS: Mupirocin Oint 22 GM Tube TOP SCH (09:36)
[2019-04-17] MEDS: Folic Acid 1 MG Tab PO SCH (09:36)
[2019-04-17] MEDS: TACROLIMUS 0.1% TOP SCH (09:37)
[2019-04-17] MEDS: LEVOCARNITINE PO SCH (09:38)
[2019-04-17] MEDS: Levofloxacin 750 MG Tab PO SCH (13:10)
[2019-04-18] MEDS ORDERED: Ferrous Sulfate 324 MG Tab.EC PO SCH (07:00)
== END 2019-04-17 13:30 | DRG 812 ==
LOC: JD.ED 11:04 → JD.MS 15:19 → OBSVTOIN 04-12 09:05
PROVIDERS: ADMIT Family Medicine; ATTEND Family Medicine
DX: D64.9 Anemia, unspecified (principal); D50.9 Iron deficiency anemia, unspecified; F20.0 Paranoid schizophrenia; L40.9 Psoriasis, unspecified; L03.811 Cellulitis of head [any part, except face]; E87.1 Hypo-osmolality and hyponatremia; I13.0 Hypertensive heart and chronic kidney disease with heart failure and stage 1 through stage 4 chronic kidney disease, or unspecified chronic kidney disease; E46 Unspecified protein-calorie malnutrition; F03.90 Unspecified dementia, unspecified severity, without behavioral disturbance, psychotic disturbance, mood disturbance, and anxiety; J44.9 Chronic obstructive pulmonary disease, unspecified; G40.909 Epilepsy, unspecified, not intractable, without status epilepticus; E78.00 Pure hypercholesterolemia, unspecified; K21.9 Gastro-esophageal reflux disease without esophagitis; H40.9 Unspecified glaucoma; F41.9 Anxiety disorder, unspecified; F32.9 Major depressive disorder, single episode, unspecified; Z86.14 Personal history of Methicillin resistant Staphylococcus aureus infection; E03.9 Hypothyroidism, unspecified; E66.9 Obesity, unspecified; I50.9 Heart failure, unspecified; E55.9 Vitamin D deficiency, unspecified; D63.8 Anemia in other chronic diseases classified elsewhere; R41.0 Disorientation, unspecified; N18.3 Chronic kidney disease, stage 3 (moderate); E88.09 Other disorders of plasma-protein metabolism, not elsewhere classified; L40.8 Other psoriasis; Z79.899 Other long term (current) drug therapy; Z90.49 Acquired absence of other specified parts of digestive tract; Z88.8 Allergy status to other drugs, medicaments and biological substances
CPT/HCPCS: 36415 ×3; 71045; 80053 ×3; 81001; 82607; 82746; 83540; 83735 ×2; 83880; 84466; 84484; 85007; 85025 ×2; 85027; 87641; 93005; 96374; 99285; A9270 ×33; J1940; J2543 ×3; J2916; J3370 ×2; J7030 ×4; J7050 ×2; P9047; 80048; 80202; 84145; 85014; 85018; 85045; 93306; 96360; 96366; 96367; 96375; 99283; G0378

== ENCOUNTER 2019-05-05 09:29 | Inpatient (IN) | payer MEDICARE, MEDICAID ==
--- NOTE | 2019-05-05 09:43 | EDM.PDOC ---
ED HPI GENERAL MEDICAL PROBLEM - General Chief Complaint: Cardiovascular Problem Stated Complaint: [facility] Time Seen by Provider: 05/05/19 09:36 Source of Information: Reports: Patient, EMS, Long-Term Records History Limitations: Reports: No Limitations - History of Present Illness INITIAL COMMENTS - FREE TEXT/NARRATIVE: 64-year-old female presents from [facility] where she is a resident. Apparently she has schizophrenia as a primary diagnosis. His not eating or drinking well and due to this fact she received a liter of fluids intravenously yesterday at the residential but continues to run a very low blood pressure at 71-72 systolic. There's been no suggestion of a febrile illness. This morning she is not much better. She was therefore sent to the ED for medical clearance evaluation and tentatively to be admitted to the psychiatric facility in [facility] in [facility] if cleared medically. Patient speaks in tangents and is not oriented to person place or time. Apparently this is her norm. She is also on Aricept for dementia at this time. Her med list indicates that she was on a course of Bactrim double strength twice daily starting April 17 as well as Levaquin 500 milligrams once daily for unclear source of infection. Apparently both of these medications are finished Onset: Unknown/Unsure (Apparently blood pressures been running low and she's not been eating well for the last 3-4 days.) Duration: Day(s):, Getting Worse Location: Reports: Generalized (Generalized poor oral intake of fluids and solids.) Quality: Reports: Other (Patient suffers from schizophrenia) Severity: Severe Improves with: Reports: None Worsens with: Reports: None Context: Denies: Activity, Exercise, Lifting, Sick Contact, Trauma, Other Associated Symptoms: Reports: Confusion, Cough (Reportedly shows a mild cough I did not hear her cough), Loss of Appetite, Malaise ( when it was in the room.), Rash (Patient has a chronic severe seborrheic dermatitis involving her scalp and face particularly her upper eyelids and eyelashes and also her upper extremities.). 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: Other (see below) (Only her usual medications.) - Related Data Allergies Allergy/AdvReac Type Severity Reaction Status Date / Time carbamazepine [From Tegretol] Allergy Cannot Verified 05/05/19 09:52 Remember ezetimibe [From Zetia] Allergy Cannot Verified 05/05/19 09:52 Remember haloperidol AdvReac Seizures Verified 05/05/19 09:52 trifluoperazine HCl AdvReac Seizures Verified 05/05/19 09:52 [From Stelazine] asorbic acid Allergy Cannot Uncoded 05/05/19 09:52 Remember Home Meds: Home Meds Donepezil HCl 10 mg PO BEDTIME 02/07/18 [History] Lactobacillus Acidophilus [Acidophilus] 175 mg PO BID 02/07/18 [History] Levothyroxine [Synthroid] 88 mcg PO DAILY 02/07/18 [History] Pantoprazole [ProTONIX] 40 mg PO DAILY 02/07/18 [History] Memantine HCl [Namenda] 10 mg PO BID 02/11/18 [History] ARIPiprazole [Abilify] 2 mg PO BEDTIME 03/30/19 [History] Carboxymethylcellulose Sodium [Refresh Tears] 1 drop EYEBOTH BEDTIME 03/30/19 [ History] Chlorhexidine 4% 1 applic TOP DAILY 03/30/19 [History] Cholecalciferol (Vitamin D3) [Vitamin D3] 2,000 unit PO DAILY 03/30/19 [History] Dorzolamide HCl/Timolol Maleat [Dorzolamide-Timolol Eye Drops] 1 drop EYEBOTH BID 03/30/19 [History] Econazole Cream 1% 1 applic TOP DAILY PRN 03/30/19 [History] Fenofibrate Nanocrystallized [Fenofibrate] 145 mg PO DAILY 03/30/19 [History] Folic Acid 1 mg PO DAILY 03/30/19 [History] Hibclen Wash. 1 applic TOP [place] 03/30/19 [History] Levocarnitine (With Sugar) [Levocarnitine Soln] 10 ml PO BID 03/30/19 [History] Miconazole 1 applic TOP DAILY PRN 03/30/19 [History] Mirtazapine 7.5 mg PO BEDTIME 03/30/19 [History] Mupirocin Oint [Bactroban Oint] 1 applic TOP BID 03/30/19 [History] Polyethylene Glycol 3350 [MiraLAX] 17 gm PO BID PRN 03/30/19 [History] Pyridoxine HCl (Vitamin B6) [Vitamin B-6] 50 mg PO DAILY 03/30/19 [History] Tacrolimus Anhydrous [Tacrolimus] 1 applic TOP BID 03/30/19 [History] cloZAPine [Clozapine] 200 mg PO DAILY 03/30/19 [History] cloZAPine [Clozapine] 300 mg PO BEDTIME 03/30/19 [History] clonazePAM [Klonopin] 1 mg PO BID 03/30/19 [History] guaiFENesin [Robafen] 10 ml PO TID PRN 03/30/19 [History] Furosemide [Lasix] 40 mg PO DAILY 04/10/19 [History] Multivitamin with Iron [Multivitamins with Iron] 1 tab PO DAILY 04/10/19 [ History] Ferrous Sulfate 324 mg PO Q48H tab.ec 04/17/19 [Rx] Sulfamethoxazole/Trimethoprim [Septra DS] 1 tab PO BID #33 tablet 04/17/19 [Rx] levoFLOXacin [Levaquin] 750 mg PO Q24H #16 tablet 04/17/19 [Rx] Past Medical History HEENT History: Reports: Glaucoma Other HEENT History: wears glasses Cardiovascular History: Reports: High Cholesterol, Hypertension Other Cardiovascular History: heart disease Respiratory History: Reports: COPD Gastrointestinal History: Reports: GERD, GI Bleed 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 Musculoskeletal History: Reports: None Other Musculoskeletal History: drug induced dyskinesia Neurological History: Reports: Seizure Other Neuro History: dementia Psychiatric History: Reports: Anxiety, Dementia, Depression, Schizophrenia Endocrine/Metabolic History: Reports: Hypothyroidism, Obesity/BMI 30+, Vitamin D Deficiency Other Endocrine/Metabolic History: hypo-osmolality, hyponatremia Hematologic History: Reports: Anemia Immunologic History: Reports: None Oncologic (Cancer) History: Reports: None Dermatologic History: Reports: Cellulitis, Eczema, Psoriasis, Other (See Below) Other Dermatologic History: skin infections to groin, under breasts and right ear. Currently has severe severe psoriasis involving her scalp which is nearly bald suggesting that she may be pulling out her own hair--trichotilomania. - Infectious Disease History Infectious Disease History: Reports: MRSA - Past Surgical History GI Surgical History: Reports: Appendectomy Social & Family History - Family History Family Medical History: Noncontributory Cardiac: Reports: Pacemaker - Caffeine Use Caffeine Use: Reports: None Other Caffeine Use: reports to drink 2 cups of coffee a week, 2 cups of tea a week and a can of diet coke daily. - Living Situation & Occupation Living situation: Reports: Single, with Family (Mother) Occupation: Unemployed ED ROS GENERAL - Review of Systems Review Of Systems: See Below Constitutional: Reports: Malaise, Weakness, Fatigue, Decreased Appetite, Weight Loss. Denies: Fever, Chills HEENT: Reports: Other (Apparently has glaucoma. It's unclear how much visual field she has lost.) Respiratory: Reports: Other (History of COPD.) Cardiovascular: Denies: Claudication, Orthopnea Endocrine: Reports: Fatigue GI/Abdominal: Reports: Anorexia, Constipation (History of constipation in the past.), Decreased Appetite : Reports: Frequency Musculoskeletal: Reports: No Symptoms Skin: Reports: Dryness (Dryness of the skin of the lower extremities.), Other ( History of severe seborrheic dermatitis involving scalp and face and upper extremities primarily.) Neurological: Reports: Confusion, Weakness. Denies: Dizziness Psychiatric: Reports: Anxiety, Other (Patient's primary diagnosis is schizophrenia. She is disoriented to person place and time at the time of my exam. She speaks tangentially. He speaks faster than normal rate.) Hematologic/Lymphatic: Reports: Anemia (Apparently has a history of anemia.) Immunologic: Reports: Other (She is on tacrolimus.) ED EXAM, GENERAL - Physical Exam Exam: See Below Exam Limited By: Altered Mental Status (She is disoriented to person place and time.) General Appearance: Alert, Anxious, Moderate Distress, Other (Vital signs show temperature 36.3 Pulse was 73 and regular. Respiratory was 18 BP initially in the ED is 91/51. She does not feel febrile. Pulse ox is 97% on room air) Eye Exam: Bilateral Eye: Periorbital Changes (Patient has severe psoriasis involving her scalp and upper eyelids and scale on her eyelashes.), PERRL, Other (By history she has glaucoma. It's unclear how much peripheral vision she has lost.) Ears: Normal TMs, Other (She has seborrheic dermatitis involving the ear canals bilaterally worse on the right side appears that she's been picking at the tragus area with a raw and red. It does not appear to be infected.) Ear Exam: Bilateral Ear: Canal Normal (Psoriasis involving both ear canals.), TM normal, Erythema (Anterior to the right ear and tragus where she appears to been picking.) Throat/Mouth: Other (Tongue is severely dry and shrunken. [place] very dry as well.) Head: Other ( Diffuse severe seborrheic care dermatitis of involving her scalp. She is missing a lot of hair almost bald I suspect this may be from try tricotillomania.) Neck: Normal Inspection, Supple, Non-Tender, Full Range of Motion. No: Carotid Bruit, Lymphadenopathy (L), Lymphadenopathy (R) Respiratory/Chest: No Respiratory Distress, Lungs Clear, Normal Breath Sounds, No Accessory Muscle Use Cardiovascular: Normal Peripheral Pulses, Regular Rate, Rhythm, No Edema, No Gallop, No Murmur, No Rub Peripheral Pulses: 1+: Posterior Tibial (L), Posterior Tibial (R), Dorsalis Pedis (L), Dorsalis Pedis (R) GI/Abdominal: Normal Bowel Sounds, Soft, Non-Tender, No Organomegaly, No Abnormal Bruit, No Mass, Pelvis Stable. No: Guarding, Rigid, Rebound (Female) Exam: Other (Intertrigo in the inguinal folds.) Back Exam: Normal Inspection, Full Range of Motion. No: CVA Tenderness (L), CVA Tenderness (R) Extremities: Other (Skin of the extremities appears to be very dry.) Neurological: Alert, CN II-XII Intact, No Motor/Sensory Deficits (Moves all limbs without any deficit.). No: Oriented, Normal Cognition Psychiatric: Anxious. No: Normal Affect, Normal Mood Skin Exam: Warm, Dry, Intact, Normal Color, Other (Severe psoriasis affecting her scalp and facial structures. Her upper eyelids and eyelashes.). No: No Rash EKG INTERPRETATION EKG Date: 05/05/19 Time: 09:58 Rhythm: NSR Rate (Beats/Min): 69 [place]: LAD-Left [place] Deviation (Mild left axis deviation of -9.) P-Wave: Present (With first-degree AV block.) QRS: Other (Decreased voltage in both limb and precordial leads. RSR prime wave in V1 and V2 consider normal variant.) ST-T: Other (Diffuse T-wave flattening in leads 2, aVF, V2 to V6. This could represent metabolic abnormality such as hypokalemia.) QT: Prolonged EKG Interpretation Comments: Abnormal ECG. Course - Vital Signs Last Recorded V/S: Last Vital Signs Temp 36.3 C 05/05/19 09:33 Pulse 73 05/05/19 09:33 Resp 18 05/05/19 09:33 BP 91/51 L 05/05/19 09:33 Pulse Ox 97 05/05/19 09:33 - Orders/Labs/Meds Orders: Active Orders 24 hr Category Date Time Status Admission Status [Patient Status] [ADT] Routine ADT 05/05/19 13:42 Ordered EKG Documentation Completion [RC] STAT Care 05/05/19 09:38 Active EKG Documentation Completion [RC] STAT Care 05/05/19 09:42 Inactive Insert Caro Catheter [Insert Urinary Catheter] [OM.PC] Care 05/05/19 10:05 Ordered Stat Urinary Catheter Assessment [RC] ASDIRECTED Care 05/05/19 10:05 Active CULTURE BLOOD [BC] Stat Lab 05/05/19 09:58 Received Dextrose 5%-Lactated Ringers 1,000 ml Med 05/05/19 09:45 Active IV ASDIRECTED Potassium Chloride [KCl 10 MEQ in Water 100 ML] 10 meq Med 05/05/19 11:15 Active Premix Bag 1 bag IV Q1H Sodium Chloride 0.9% [Normal Saline] 1,000 ml Med 05/05/19 11:45 Active IV ASDIRECTED Blood Culture x2 Reflex Set [OM.PC] Stat Oth 05/05/19 09:39 Ordered Medication Orders Dextrose/Lactated Ringer's (Dextrose 5%-Lactated Ringers) 1,000 mls @ 999 mls/ hr IV ASDIRECTED NAEL Last Admin: 05/05/19 09:50 Dose: 999 mls/hr Potassium Chloride 10 meq/ (Premix) 100 mls @ 100 mls/hr IV Q1H NAEL Stop: 05/05/19 17:14 Last Admin: 05/05/19 13:29 Dose: 100 mls/hr Infusion: 05/05/19 13:15 Dose: 100 mls/hr Admin: 05/05/19 12:15 Dose: 100 mls/hr Sodium Chloride (Normal Saline) 1,000 mls @ 75 mls/hr IV ASDIRECTED NAEL Last Admin: 05/05/19 12:15 Dose: 75 mls/hr Labs: Laboratory Tests 05/05/19 05/05/19 05/05/19 Range/Units 09:58 09:58 09:58 WBC 7.68 (3.98-10.04) K/mm3 RBC 3.25 L (3.98-5.22) M/mm3 Hgb 9.0 L (11.2-15.7) gm/dl Hct 27.7 L (34.1-44.9) % MCV 85.2 D (79.4-94.8) fl MCH 27.7 (25.6-32.2) pg MCHC 32.5 (32.2-35.5) g/dl RDW Std Deviation 47.2 H (36.4-46.3) fL Plt Count 331 D (182-369) K/mm3 MPV 8.8 L (9.4-12.3) fl Neutrophils % (Manual) 58 (40-60) % Band Neutrophils % 1 (0-10) % Lymphocytes % (Manual) 17 L (20-40) % Atypical Lymphs % 0 % Monocytes % (Manual) 10 (2-10) % Eosinophils % (Manual) 13 H (0.7-5.8) % Basophils % (Manual) 1 (0.1-1.2) Platelet Estimate Adequate Anisocytosis 1+ slight RBC Morph Comment Not Reportable ESR (0-20) mm/hr PT 13.7 H (9.7-12.0) SECONDS INR 1.27 APTT 36 H (22-31) SECONDS Sodium 125 L (136-145) mEq/L Potassium 3.4 L (3.5-5.1) mEq/L Chloride 91 L (98-107) mEq/L Carbon Dioxide 27 (21-32) mEq/L Anion Gap 10.4 (5-15) BUN 22 H (7-18) mg/dL Creatinine 2.2 H (0.55-1.02) mg/dL Est Cr Clr Drug Dosing TNP Estimated GFR (MDRD) 22 (>60) mL/min BUN/Creatinine Ratio 10.0 L (14-18) Glucose 131 H (80-115) mg/dL Serum Osmolality (280-300) mosm/kg Lactic Acid (0.4-2.0) mmol/L Calcium 8.6 (8.5-10.1) mg/dL Magnesium 1.9 (1.8-2.4) mg/dl Total Bilirubin 0.2 (0.2-1.0) mg/dL AST 13 L (15-37) U/L ALT 10 L (14-59) U/L Alkaline Phosphatase 43 L (46-116) U/L Troponin I < 0.017 (0.00-0.056) ng/mL C-Reactive Protein 3.4 H* (<1.0) mg/dL NT-Pro-B Natriuret Pep (0-125) pg/mL Total Protein 5.5 L (6.4-8.2) g/dl Albumin 2.1 L (3.4-5.0) g/dl Globulin 3.4 gm/dL Albumin/Globulin Ratio 0.6 L (1-2) Lipase (73-393) U/L TSH 3rd Generation (0.358-3.74) uIU/mL Urine Color (Yellow) Urine Appearance (Clear) Urine pH (5.0-8.0) Ur Specific [place] (1.005-1.030) Urine Protein (Negative) Urine Glucose (UA) (Negative) Urine Ketones (Negative) Urine Occult Blood (Negative) Urine Nitrite (Negative) Urine Bilirubin (Negative) Urine Urobilinogen (0.2-1.0) Ur Leukocyte Esterase (Negative) Urine RBC (0-5) /hpf Urine WBC (0-5) /hpf Ur Squamous Epith Cells (0-5) /hpf Amorphous Sediment (NOT SEEN) /hpf Urine Bacteria (FEW) /hpf Urine Mucus (FEW) /hpf Urine Opiates Screen (QGZQKY=638) Ur Buprenorphine Scrn (CUTOFF=10) Ur Oxycodone Screen (AUS7XK=905) Urine Methadone Screen (DBUPLY=544) Ur Propoxyphene Screen (CMGNZZ=647) Ur Barbiturates Screen (EHVONE=806) Ur Tricyclics Screen (YTTBDD=206) Ur Phencyclidine Scrn (CUTOFF=25) Ur Amphetamine Screen (PEJUKN=023) U Methamphetamines Scrn (QHAAVG=337) U Benzodiazepines Scrn (IJGFCL=566) U Cocaine Metab Screen (SYNFPE=379) U Marijuana (THC) Screen (CUTOFF=50) Ethyl Alcohol 0.00 (0.00) gm% 05/05/19 05/05/19 05/05/19 Range/Units 09:58 09:58 09:58 WBC (3.98-10.04) K/mm3 RBC (3.98-5.22) M/mm3 Hgb (11.2-15.7) gm/dl Hct (34.1-44.9) % MCV (79.4-94.8) fl MCH (25.6-32.2) pg MCHC (32.2-35.5) g/dl RDW Std Deviation (36.4-46.3) fL Plt Count (182-369) K/mm3 MPV (9.4-12.3) fl Neutrophils % (Manual) (40-60) % Band Neutrophils % (0-10) % Lymphocytes % (Manual) (20-40) % Atypical Lymphs % % Monocytes % (Manual) (2-10) % Eosinophils % (Manual) (0.7-5.8) % Basophils % (Manual) (0.1-1.2) Platelet Estimate Anisocytosis RBC Morph Comment ESR 29 H (0-20) mm/hr PT (9.7-12.0) SECONDS INR APTT (22-31) SECONDS Sodium (136-145) mEq/L Potassium (3.5-5.1) mEq/L Chloride (98-107) mEq/L Carbon Dioxide (21-32) mEq/L Anion Gap (5-15) BUN (7-18) mg/dL Creatinine (0.55-1.02) mg/dL Est Cr Clr Drug Dosing Estimated GFR (MDRD) (>60) mL/min BUN/Creatinine Ratio (14-18) Glucose (80-115) mg/dL Serum Osmolality (280-300) mosm/kg Lactic Acid 1.8 (0.4-2.0) mmol/L Calcium (8.5-10.1) mg/dL Magnesium (1.8-2.4) mg/dl Total Bilirubin (0.2-1.0) mg/dL AST (15-37) U/L ALT (14-59) U/L Alkaline Phosphatase (46-116) U/L Troponin I (0.00-0.056) ng/mL C-Reactive Protein (<1.0) mg/dL NT-Pro-B Natriuret Pep 981 H (0-125) pg/mL Total Protein (6.4-8.2) g/dl Albumin (3.4-5.0) g/dl Globulin gm/dL Albumin/Globulin Ratio (1-2) Lipase (73-393) U/L TSH 3rd Generation (0.358-3.74) uIU/mL Urine Color (Yellow) Urine Appearance (Clear) Urine pH (5.0-8.0) Ur Specific [place] (1.005-1.030) Urine Protein (Negative) Urine Glucose (UA) (Negative) Urine Ketones (Negative) Urine Occult Blood (Negative) Urine Nitrite (Negative) Urine Bilirubin (Negative) Urine Urobilinogen (0.2-1.0) Ur Leukocyte Esterase (Negative) Urine RBC (0-5) /hpf Urine WBC (0-5) /hpf Ur Squamous Epith Cells (0-5) /hpf Amorphous Sediment (NOT SEEN) /hpf Urine Bacteria (FEW) /hpf Urine Mucus (FEW) /hpf Urine Opiates Screen (BWXVGO=363) Ur Buprenorphine Scrn (CUTOFF=10) Ur Oxycodone Screen (RKA6HN=654) Urine Methadone Screen (QWLMTZ=378) Ur Propoxyphene Screen (PCRCSE=388) Ur Barbiturates Screen (ZWBJNX=731) Ur Tricyclics Screen (WNNXYH=138) Ur Phencyclidine Scrn (CUTOFF=25) Ur Amphetamine Screen (TVJQFW=965) U Methamphetamines Scrn (OUJDZG=595) U Benzodiazepines Scrn (QBDSUM=747) U Cocaine Metab Screen (RRNNDC=415) U Marijuana (THC) Screen (CUTOFF=50) Ethyl Alcohol (0.00) gm% 05/05/19 05/05/19 05/05/19 Range/Units 09:58 10:12 10:12 WBC (3.98-10.04) K/mm3 RBC (3.98-5.22) M/mm3 Hgb (11.2-15.7) gm/dl Hct (34.1-44.9) % MCV (79.4-94.8) fl MCH (25.6-32.2) pg MCHC (32.2-35.5) g/dl RDW Std Deviation (36.4-46.3) fL Plt Count (182-369) K/mm3 MPV (9.4-12.3) fl Neutrophils % (Manual) (40-60) % Band Neutrophils % (0-10) % Lymphocytes % (Manual) (20-40) % Atypical Lymphs % % Monocytes % (Manual) (2-10) % Eosinophils % (Manual) (0.7-5.8) % Basophils % (Manual) (0.1-1.2) Platelet Estimate Anisocytosis RBC Morph Comment ESR (0-20) mm/hr PT (9.7-12.0) SECONDS INR APTT (22-31) SECONDS Sodium (136-145) mEq/L Potassium (3.5-5.1) mEq/L Chloride (98-107) mEq/L Carbon Dioxide (21-32) mEq/L Anion Gap (5-15) BUN (7-18) mg/dL Creatinine (0.55-1.02) mg/dL Est Cr Clr Drug Dosing Estimated GFR (MDRD) (>60) mL/min BUN/Creatinine Ratio (14-18) Glucose (80-115) mg/dL Serum Osmolality 266 L (280-300) mosm/kg Lactic Acid (0.4-2.0) mmol/L Calcium (8.5-10.1) mg/dL Magnesium (1.8-2.4) mg/dl Total Bilirubin (0.2-1.0) mg/dL AST (15-37) U/L ALT (14-59) U/L Alkaline Phosphatase (46-116) U/L Troponin I (0.00-0.056) ng/mL C-Reactive Protein (<1.0) mg/dL NT-Pro-B Natriuret Pep (0-125) pg/mL Total Protein (6.4-8.2) g/dl Albumin (3.4-5.0) g/dl Globulin gm/dL Albumin/Globulin Ratio (1-2) Lipase 47 L (73-393) U/L TSH 3rd Generation 1.995 (0.358-3.74) uIU/mL Urine Color Yellow (Yellow) Urine Appearance Slt cloudy H (Clear) Urine pH 6.0 (5.0-8.0) Ur Specific [place] 1.025 (1.005-1.030) Urine Protein Negative (Negative) Urine Glucose (UA) Negative (Negative) Urine Ketones Negative (Negative) Urine Occult Blood Negative (Negative) Urine Nitrite Negative (Negative) Urine Bilirubin Negative (Negative) Urine Urobilinogen 0.2 (0.2-1.0) Ur Leukocyte Esterase Negative (Negative) Urine RBC 0-5 (0-5) /hpf Urine WBC 0-5 (0-5) /hpf Ur Squamous Epith Cells 0-5 (0-5) /hpf Amorphous Sediment Few H (NOT SEEN) /hpf Urine Bacteria Few (FEW) /hpf Urine Mucus Few (FEW) /hpf Urine Opiates Screen Negative (LNZTJM=496) Ur Buprenorphine Scrn Negative (CUTOFF=10) Ur Oxycodone Screen Negative (WLU6OO=687) Urine Methadone Screen Negative (LXHWTK=459) Ur Propoxyphene Screen Negative (ZSMDVW=248) Ur Barbiturates Screen Negative (BCNRSC=158) Ur Tricyclics Screen Presumptive positive H (NTJGKH=513) Ur Phencyclidine Scrn Negative (CUTOFF=25) Ur Amphetamine Screen Negative (HHZKPQ=786) U Methamphetamines Scrn Negative (UJHDFB=640) U Benzodiazepines Scrn Presumptive positive H (TMKDIS=885) U Cocaine Metab Screen Negative (LFWXFS=291) U Marijuana (THC) Screen Negative (CUTOFF=50) Ethyl Alcohol (0.00) gm% Meds: Medications Generic Name Dose Route Start Last Admin Trade Name Freq PRN Reason Stop Dose Admin Dextrose/Lactated Ringer's 1,000 mls @ 999 mls/hr 05/05/19 09:45 05/05/19 09: 50 Dextrose 5%-Lactated Ringers IV 999 mls/hr ASDIRECTED NAEL Administration Potassium Chloride 10 meq/ 100 mls @ 100 mls/hr 05/05/19 11:15 05/05/19 13:29 Premix IV 05/05/19 17:14 100 mls/hr Q1H NAEL Administration Sodium Chloride 1,000 mls @ 75 mls/hr 05/05/19 11:45 05/05/19 12:15 Normal Saline IV 75 mls/hr ASDIRECTED NAEL Administration Discontinued Medications Generic Name Dose Route Start Last Admin Trade Name Freq PRN Reason Stop Dose Admin Bumetanide 1 mg 05/05/19 11:39 05/05/19 12:18 Bumex IVPUSH 05/05/19 11:40 1 mg ONETIME ONE Administration - Radiology Interpretation Free Text/Narrative:: 64-year-old female with known chronic schizophrenia currently residing at [facility] sent to the ED for evaluation and apparently medical clearance exam for potential admission to the psychiatric department at [facility] in [place]. She is not eating or drinking well. She does a liter of fluid yesterday to try and improve her hydration but clinically she is still very dehydrated with tongue very shrunken and dry. It's unclear at this time however she obtains nutrition. Whether she can still feel herself or is refusing food. Apparently her blood pressure this morning was 71/52. He on presentation it was 91/57. It is currently 82/47 once she has settled. Heart rate is 68 in sinus with a first-degree AV block. After 94% on room air. Plan septic workup will be commenced to make sure there were not missing any other reasons for her to be hypotensive. Fluid 0 be D5 Ringer's lactate at open until we can establish her electrolyte status and renal function - Re-Assessments/Exams Free Text/Narrative Re-Assessment/Exam: 05/05/19 10:15 patient was very uncooperative with phlebotomy. 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 Chest x-ray reveals heart size is within normal limits for portable technique. Tortuous thoracic aorta appreciated. Lungs show no acute parenchymal changes. Minimal tenting of the left hemidiaphragm is seen most likely due to slight atelectasis. Discoid atelectatic atelectasis also noted within the right lung base. Bony structures are grossly intact. 05/05/19 11:03 Labs reveal a normal white count at 7.68. . Manual differential shows 50% neutrophils and 1% band cells. Hemoglobin is low at 9.0 with hematocrit of 27.7. MCV is 85.2. Platelet count is normal at 3 and 31,000. PT is 13.7 with INR 1.27 i.e. mildly auto anticoagulated. PT is elevated at 36. Sodium is low at 125. Potassium is low at 3.4. Chloride is 91 with a bicarbonate of 27. Anion gap is 10.4. B1 is 22 with a creatinine of 2.2. Estimated GFR is 22 which would be stage IV chronic kidney disease. Glucose 131 with a lactic acid of 1.8. Calcium is 8.6 with a magnesium of 1.9. Total bilirubin is 0.2. AST is 13 with an ALT of 10. Prosthesis 43. Troponin I is less than 0.017. C-reactive protein is mildly elevated at 3.4. BNP is elevated at 981. Total protein is 5.5 with an albumin fraction of 2.1. Urine has a slightly cloudy appearance but no signs of an infection. Urine is positive for tricyclics and benzodiazepines both of which the patient is on. Blood alcohol is 0.00. The reason for the anemia appears to be chronic renal insufficiency. Awaiting serum osmolality, TSH. 05/05/19 11:32 Serum osmolality is quite low at 266 suggesting dilutional hyponatremia. Likely from excessive water intake. 1.995 which is normal. I did speak with Dr. Stevens her primary care physician and he indicates that she is a candidate to be admitted to the [facility] [employer] but she has to be medically stable and at this point she has not. Her Lasix was discontinued yesterday because of her hypotension. Her primary did skin diseases actually psoriasis not seborrheic dermatitis. She has a chronic low serum albumin which contributes to development of dependent edema and anasarca. A recent echocardiogram was done on the of this month but results are pending. I will discuss case with Dr. Rey director of food and nutrition services hospitalist in regards to possibility of admission to the hospital for correction of hyponatremia and making sure that her heart failure does not worsen. I'm not sure she is not a candidate for a dose of albumin intravenously. Her IV fluids will be changed to normal saline at 75 mils per hour. I'm going to give her dose of Bumex 1 mg IV due to fluid retention and elevated BNP. 05/05/19 12:37 blood pressure is been running between 87 and 92 systolic over around 60[address] Dr. Rey will be attending the patient in the ED with a view to admission to the hospital. Will need for admission to intensive care unit as hypotension persists and she may well need a vasopressor drip. 05/05/19 13:52 pressure is currently 77/49. 4 she is going to require levo fed drip to improve her hypotension status. She is renal insufficiency stage IV due to not perfusing her kidneys. Apparently she had an echocardiogram done 2 days ago which is not yet available as has not been read. She is already in congestive heart failure with a BNP of nearly 1000. Case discussed with Dr. Rey and decision made to start a central line on her. Departure - Departure Time of Disposition: 13:45 Disposition: Admitted As Inpatient 66 Condition: Fair Clinical Impression: Schizophrenia with prominent negative symptoms, Chronic renal insufficiency, stage IV (severe), Volume depletion, unspecified Hypotension Qualifiers: Hypotension type: unspecified hypotension type Qualified Code(s): I95.9 - Hypotension, unspecified Referrals: Nikko Stevens MD [Primary Care Provider] - Forms: ED Department Discharge Additional Instructions: Patient will be admitted to the med surgery floor under telemetry services. Dr. Rey has accepted care and has seen the patient in the ED. Sepsis Event Note - Focused Exam Vital Signs: Vital Signs Temp Pulse Resp BP Pulse Ox 05/05/19 09:33 36.3 C 73 18 91/51 L 97 Date Exam was Performed: 05/05/19 Time Exam was Performed: 13:44 - My Orders Last 24 Hours: My Active Orders 05/05/19 09:38 EKG Documentation Completion [RC] STAT 05/05/19 09:39 Blood Culture x2 Reflex Set [OM.PC] Stat 05/05/19 09:42 EKG Documentation Completion [RC] STAT 05/05/19 09:45 Dextrose 5%-Lactated Ringers 1,000 ml IV ASDIRECTED 05/05/19 09:58 CULTURE BLOOD [BC] Stat 05/05/19 10:05 Insert Caro Catheter [Insert Urinary Catheter] [OM.PC] Stat Urinary Catheter Assessment [RC] ASDIRECTED 05/05/19 11:15 Potassium Chloride [KCl 10 MEQ in Water 100 ML] 10 meq Premix Bag 1 bag IV Q1H 05/05/19 11:45 Sodium Chloride 0.9% [Normal Saline] 1,000 ml IV ASDIRECTED 05/05/19 13:42 Admission Status [Patient Status] [ADT] Routine - Assessment/Plan Last 24 Hours: My Active Orders 05/05/19 09:38 EKG Documentation Completion [RC] STAT 05/05/19 09:39 Blood Culture x2 Reflex Set [OM.PC] Stat 05/05/19 09:42 EKG Documentation Completion [RC] STAT 05/05/19 09:45 Dextrose 5%-Lactated Ringers 1,000 ml IV ASDIRECTED 05/05/19 09:58 CULTURE BLOOD [BC] Stat 05/05/19 10:05 Insert Caro Catheter [Insert Urinary Catheter] [OM.PC] Stat Urinary Catheter Assessment [RC] ASDIRECTED 05/05/19 11:15 Potassium Chloride [KCl 10 MEQ in Water 100 ML] 10 meq Premix Bag 1 bag IV Q1H 05/05/19 11:45 Sodium Chloride 0.9% [Normal Saline] 1,000 ml IV ASDIRECTED 05/05/19 13:42 Admission Status [Patient Status] [ADT] Routine
[2019-05-05] MEDS ORDERED: Dextrose 5%-Lactated Ringers 1,000 ML IV SCH (09:45)
--- NOTE | 2019-05-05 10:09 | CR ---
Chest: Portable view of the chest was obtained. Comparison: Prior chest x-ray of 04/10/19. Heart size is within normal limits for portable technique. Tortuous thoracic aorta is noted. Lungs show no acute parenchymal change. Minimal tenting of the left hemidiaphragm is seen most likely due to slight atelectasis. Discoid atelectasis also noted within the right lung base. Bony structures are grossly intact. Impression: 1. Minimal atelectasis. 2. Nothing acute is seen on portable chest x-ray. Diagnostic code #2 This report was dictated in [place] Standard Time
[2019-05-05] MEDS ORDERED: Bumetanide 1 MG/4 ML MDV IVPUSH ONE (11:39)
[2019-05-05] MEDS: Potassium Chloride 10 MEQ in Premix Bag 1 BAG IV SCH ×6 (12:15→18:54)
[2019-05-05] MEDS: Sodium Chloride 0.9% 1,000 ML IV SCH ×2 (12:15→23:24)
[2019-05-05] MEDS ORDERED: LORazepam 2 MG/ML SDV ONE (14:06)
[2019-05-05] MEDS ORDERED: LORazepam 2 MG/ML SDV IVPUSH ONE (14:39)
--- NOTE | 2019-05-05 14:44 | PCM.HP.2 ---
H&P History of Present Illness - General Date of Service: 05/05/19 Admit Problem/Dx: Admission Diagnosis/Problem Admission Diagnosis/Problem Hyponatremia, hypo-osmolarity, or hypo-osmolar hyponatremia - History of Present Illness Initial Comments - Free Text/Narative: Unable to obtain history from patient due to altered mental status ER DOCUMMENTATION 64-year-old female presents from [facility] where she is a resident. Apparently she has schizophrenia as a primary diagnosis. His not eating or drinking well and due to this fact she received a liter of fluids intravenously yesterday at the senior care but continues to run a very low blood pressure at 71-72 systolic. There's been no suggestion of a febrile illness. This morning she is not much better. She was therefore sent to the ED for medical clearance evaluation and tentatively to be admitted to the psychiatric facility in [facility] in [facility] if cleared medically. Patient speaks in tangents and is not oriented to person place or time. Apparently this is her norm. She is also on Aricept for dementia at this time. Her med list indicates that she was on a course of Bactrim double strength twice daily starting April 17 as well as Levaquin 500 milligrams once daily for unclear source of infection. Apparently both of these medications are finished Onset: Unknown/Unsure (Apparently blood pressures been running low and she's not been eating well for the last 3-4 days.) Duration: Day(s):, Getting Worse Location: Reports: Generalized (Generalized poor oral intake of fluids and solids.) Quality: Reports: Other (Patient suffers from schizophrenia) Severity: Severe Improves with: Reports: None Worsens with: Reports: None Context: Denies: Activity, Exercise, Lifting, Sick Contact, Trauma, Other Associated Symptoms: Reports: Confusion, Cough (Reportedly shows a mild cough I did not hear her cough), Loss of Appetite, Malaise ( when it was in the room.), Rash (Patient has a chronic severe seborrheic dermatitis involving her scalp and face particularly her upper eyelids and eyelashes and also her upper extremities.). 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) (Only her usual medications.) - Related Data Allergies/Adverse Reactions: Allergies Allergy/AdvReac Type Severity Reaction Status Date / Time carbamazepine [From Tegretol] Allergy Cannot Verified 05/05/19 09:52 Remember ezetimibe [From Zetia] Allergy Cannot Verified 05/05/19 09:52 Remember haloperidol AdvReac Seizures Verified 05/05/19 09:52 trifluoperazine HCl AdvReac Seizures Verified 05/05/19 09:52 [From Stelazine] asorbic acid Allergy Cannot Uncoded 05/05/19 09:52 Remember Home Medications: Home Meds Donepezil HCl 10 mg PO BEDTIME 02/07/18 [History] Lactobacillus Acidophilus [Acidophilus] 175 mg PO BID 02/07/18 [History] Levothyroxine [Synthroid] 88 mcg PO DAILY 02/07/18 [History] Pantoprazole [ProTONIX] 40 mg PO DAILY 02/07/18 [History] Memantine HCl [Namenda] 10 mg PO BID 02/11/18 [History] Chlorhexidine 4% 1 applic TOP DAILY 03/30/19 [History] Cholecalciferol (Vitamin D3) [Vitamin D3] 2,000 unit PO DAILY 03/30/19 [History] Dorzolamide HCl/Timolol Maleat [Dorzolamide-Timolol Eye Drops] 1 drop EYEBOTH BID 03/30/19 [History] Econazole Cream 1% 1 applic TOP DAILY PRN 03/30/19 [History] Fenofibrate Nanocrystallized [Fenofibrate] 145 mg PO DAILY 03/30/19 [History] Folic Acid 1 mg PO DAILY 03/30/19 [History] Hibclen Wash. 1 applic TOP MOWESA 03/30/19 [History] Miconazole 1 applic TOP DAILY PRN 03/30/19 [History] Polyethylene Glycol 3350 [MiraLAX] 17 gm PO BID PRN 03/30/19 [History] Pyridoxine HCl (Vitamin B6) [Vitamin B-6] 50 mg PO DAILY 03/30/19 [History] Tacrolimus Anhydrous [Tacrolimus] 1 applic TOP BID 03/30/19 [History] cloZAPine [Clozapine] 200 mg PO DAILY 03/30/19 [History] cloZAPine [Clozapine] 300 mg PO BEDTIME 03/30/19 [History] clonazePAM [Klonopin] 1 mg PO BID 03/30/19 [History] guaiFENesin [Robafen] 10 ml PO TID PRN 03/30/19 [History] Multivitamin with Iron [Multivitamins with Iron] 1 tab PO DAILY 04/10/19 [ History] Ferrous Sulfate 324 mg PO Q48H tab.ec 04/17/19 [Rx] ARIPiprazole [Abilify] 20 mg PO BEDTIME 05/05/19 [History] Betamethasone Valerate 1 applic TP BID 05/05/19 [History] levOCARNitine [Levocarnitine] 990 mg PO BID 05/05/19 [History] Past Medical History HEENT History: Reports: Glaucoma Other HEENT History: wears glasses Cardiovascular History: Reports: High Cholesterol, Hypertension Other Cardiovascular History: heart disease Respiratory History: Reports: COPD Gastrointestinal History: Reports: GERD, GI Bleed Genitourinary History: Reports: Chronic Renal Insuffiency MSWS History: Reports: None Musculoskeletal History: Reports: None Other Musculoskeletal History: drug induced dyskinesia Neurological History: Reports: Seizure Other Neuro History: dementia Psychiatric History: Reports: Anxiety, Dementia, Depression, Schizophrenia Endocrine/Metabolic History: Reports: Hypothyroidism, Obesity/BMI 30+, Vitamin D Deficiency Other Endocrine/Metabolic History: hypo-osmolality, hyponatremia Hematologic History: Reports: Anemia Immunologic History: Reports: None Oncologic (Cancer) History: Reports: None Dermatologic History: Reports: Cellulitis, Eczema, Psoriasis, Other (See Below) Other Dermatologic History: skin infections to groin, under breasts and right ear. Currently has severe severe psoriasis involving her scalp which is nearly bald suggesting that she may be pulling out her own hair--trichotilomania. - Infectious Disease History Infectious Disease History: Reports: MRSA - Past Surgical History GI Surgical History: Reports: Appendectomy Social & Family History - Family History Family Medical History: Noncontributory Cardiac: Reports: Pacemaker - Tobacco Use Smoking Status *Q: Unknown Ever Smoked - Caffeine Use Caffeine Use: Reports: None Other Caffeine Use: reports to drink 2 cups of coffee a week, 2 cups of tea a week and a can of diet coke daily. Caffeine Use Comment: Unknown. - Living Situation & Occupation Living situation: Reports: Single, with Family (Mother) Occupation: Unemployed H&P Review of Systems - Review of Systems: Review Of Systems: Unable To Obtain Reason Not Obtained: Altered mental status Exam - Exam Exam: See Below - Vital Signs Vital Signs: Last Vital Signs Temp 97.4 F 05/05/19 09:33 Pulse 73 05/05/19 09:33 Resp 18 05/05/19 09:33 BP 91/51 L 05/05/19 09:33 Pulse Ox 97 05/05/19 09:33 Weight: 73.119 kg - Exam Physical Exam Comments:: Eye Exam: psoriasis in upper eyelids and scale on her eyelashes. Neck: Normal Inspection, Supple, Non-Tender, Full Range of Motion. No: Carotid Bruit, Lymphadenopathy (L), Lymphadenopathy (R) Respiratory/Chest: No Respiratory Distress, Lungs Clear, Normal Breath Sounds, No Accessory Muscle Use Cardiovascular: Normal Peripheral Pulses, Regular Rate, Rhythm, No Edema, No Gallop, No Murmur, No Rub Peripheral Pulses: 1+: Posterior Tibial (L), Posterior Tibial (R), Dorsalis Pedis (L), Dorsalis Pedis (R) GI/Abdominal: Normal Bowel Sounds, Soft, Non-Tender, No Organomegaly, No Abnormal Bruit, No Mass, Pelvis Stable. No: Guarding, Rigid, Rebound (Female) Exam: Other (Intertrigo in the inguinal folds.) Back Exam: Normal Inspection, Full Range of Motion. No: CVA Tenderness (L), CVA Tenderness (R) Extremities: Other (Skin of the extremities appears to be very dry.) Neurological: Alert, CN II-XII Intact, No Motor/Sensory Deficits (Moves all limbs without any deficit.). No: Oriented Psychiatric: Anxious. No: Normal Affect, Normal Mood Skin Exam: Warm, Dry, Intact, Normal Color, Severe psoriasis affecting her scalp and face. Diffuse severe seborrheic care dermatitis of involving her scalp - Patient Data Lab Results Last 24 hrs: Laboratory Results - last 24 hr 05/05/19 05/05/19 05/05/19 Range/Units 09:58 09:58 09:58 WBC 7.68 (3.98-10.04) K/mm3 RBC 3.25 L (3.98-5.22) M/mm3 Hgb 9.0 L (11.2-15.7) gm/dl Hct 27.7 L (34.1-44.9) % MCV 85.2 D (79.4-94.8) fl MCH 27.7 (25.6-32.2) pg MCHC 32.5 (32.2-35.5) g/dl RDW Std Deviation 47.2 H (36.4-46.3) fL Plt Count 331 D (182-369) K/mm3 MPV 8.8 L (9.4-12.3) fl Neutrophils % (Manual) 58 (40-60) % Band Neutrophils % 1 (0-10) % Lymphocytes % (Manual) 17 L (20-40) % Atypical Lymphs % 0 % Monocytes % (Manual) 10 (2-10) % Eosinophils % (Manual) 13 H (0.7-5.8) % Basophils % (Manual) 1 (0.1-1.2) Platelet Estimate Adequate Anisocytosis 1+ slight RBC Morph Comment Not Reportable ESR (0-20) mm/hr PT 13.7 H (9.7-12.0) SECONDS INR 1.27 APTT 36 H (22-31) SECONDS Sodium 125 L (136-145) mEq/L Potassium 3.4 L (3.5-5.1) mEq/L Chloride 91 L (98-107) mEq/L Carbon Dioxide 27 (21-32) mEq/L Anion Gap 10.4 (5-15) BUN 22 H (7-18) mg/dL Creatinine 2.2 H (0.55-1.02) mg/dL Est Cr Clr Drug Dosing TNP Estimated GFR (MDRD) 22 (>60) mL/min BUN/Creatinine Ratio 10.0 L (14-18) Glucose 131 H (80-115) mg/dL Serum Osmolality (280-300) mosm/kg Lactic Acid (0.4-2.0) mmol/L Calcium 8.6 (8.5-10.1) mg/dL Magnesium 1.9 (1.8-2.4) mg/dl Total Bilirubin 0.2 (0.2-1.0) mg/dL AST 13 L (15-37) U/L ALT 10 L (14-59) U/L Alkaline Phosphatase 43 L (46-116) U/L Troponin I < 0.017 (0.00-0.056) ng/mL C-Reactive Protein 3.4 H* (<1.0) mg/dL NT-Pro-B Natriuret Pep (0-125) pg/mL Total Protein 5.5 L (6.4-8.2) g/dl Albumin 2.1 L (3.4-5.0) g/dl Globulin 3.4 gm/dL Albumin/Globulin Ratio 0.6 L (1-2) Lipase (73-393) U/L TSH 3rd Generation (0.358-3.74) uIU/mL Urine Color (Yellow) Urine Appearance (Clear) Urine pH (5.0-8.0) Ur Specific [place] (1.005-1.030) Urine Protein (Negative) Urine Glucose (UA) (Negative) Urine Ketones (Negative) Urine Occult Blood (Negative) Urine Nitrite (Negative) Urine Bilirubin (Negative) Urine Urobilinogen (0.2-1.0) Ur Leukocyte Esterase (Negative) Urine RBC (0-5) /hpf Urine WBC (0-5) /hpf Ur Squamous Epith Cells (0-5) /hpf Amorphous Sediment (NOT SEEN) /hpf Urine Bacteria (FEW) /hpf Urine Mucus (FEW) /hpf Urine Opiates Screen (YZJIGN=981) Ur Buprenorphine Scrn (CUTOFF=10) Ur Oxycodone Screen (TUH3HJ=348) Urine Methadone Screen (QSRRLX=839) Ur Propoxyphene Screen (BQZFQU=067) Ur Barbiturates Screen (EWJSXA=987) Ur Tricyclics Screen (XRQQWQ=671) Ur Phencyclidine Scrn (CUTOFF=25) Ur Amphetamine Screen (EWULES=507) U Methamphetamines Scrn (PFYRGS=236) U Benzodiazepines Scrn (KPLVZE=213) U Cocaine Metab Screen (MPSLUN=330) U Marijuana (THC) Screen (CUTOFF=50) Ethyl Alcohol 0.00 (0.00) gm% 05/05/19 05/05/19 05/05/19 Range/Units 09:58 09:58 09:58 WBC (3.98-10.04) K/mm3 RBC (3.98-5.22) M/mm3 Hgb (11.2-15.7) gm/dl Hct (34.1-44.9) % MCV (79.4-94.8) fl MCH (25.6-32.2) pg MCHC (32.2-35.5) g/dl RDW Std Deviation (36.4-46.3) fL Plt Count (182-369) K/mm3 MPV (9.4-12.3) fl Neutrophils % (Manual) (40-60) % Band Neutrophils % (0-10) % Lymphocytes % (Manual) (20-40) % Atypical Lymphs % % Monocytes % (Manual) (2-10) % Eosinophils % (Manual) (0.7-5.8) % Basophils % (Manual) (0.1-1.2) Platelet Estimate Anisocytosis RBC Morph Comment ESR 29 H (0-20) mm/hr PT (9.7-12.0) SECONDS INR APTT (22-31) SECONDS Sodium (136-145) mEq/L Potassium (3.5-5.1) mEq/L Chloride (98-107) mEq/L Carbon Dioxide (21-32) mEq/L Anion Gap (5-15) BUN (7-18) mg/dL Creatinine (0.55-1.02) mg/dL Est Cr Clr Drug Dosing Estimated GFR (MDRD) (>60) mL/min BUN/Creatinine Ratio (14-18) Glucose (80-115) mg/dL Serum Osmolality (280-300) mosm/kg Lactic Acid 1.8 (0.4-2.0) mmol/L Calcium (8.5-10.1) mg/dL Magnesium (1.8-2.4) mg/dl Total Bilirubin (0.2-1.0) mg/dL AST (15-37) U/L ALT (14-59) U/L Alkaline Phosphatase (46-116) U/L Troponin I (0.00-0.056) ng/mL C-Reactive Protein (<1.0) mg/dL NT-Pro-B Natriuret Pep 981 H (0-125) pg/mL Total Protein (6.4-8.2) g/dl Albumin (3.4-5.0) g/dl Globulin gm/dL Albumin/Globulin Ratio (1-2) Lipase (73-393) U/L TSH 3rd Generation (0.358-3.74) uIU/mL Urine Color (Yellow) Urine Appearance (Clear) Urine pH (5.0-8.0) Ur Specific [place] (1.005-1.030) Urine Protein (Negative) Urine Glucose (UA) (Negative) Urine Ketones (Negative) Urine Occult Blood (Negative) Urine Nitrite (Negative) Urine Bilirubin (Negative) Urine Urobilinogen (0.2-1.0) Ur Leukocyte Esterase (Negative) Urine RBC (0-5) /hpf Urine WBC (0-5) /hpf Ur Squamous Epith Cells (0-5) /hpf Amorphous Sediment (NOT SEEN) /hpf Urine Bacteria (FEW) /hpf Urine Mucus (FEW) /hpf Urine Opiates Screen (KSBJSL=817) Ur Buprenorphine Scrn (CUTOFF=10) Ur Oxycodone Screen (POA2VY=974) Urine Methadone Screen (ELFMZT=547) Ur Propoxyphene Screen (UXMJOQ=082) Ur Barbiturates Screen (KZJXBM=234) Ur Tricyclics Screen (IAXEJZ=512) Ur Phencyclidine Scrn (CUTOFF=25) Ur Amphetamine Screen (DFUUMV=657) U Methamphetamines Scrn (JBUXPF=602) U Benzodiazepines Scrn (TEOESX=692) U Cocaine Metab Screen (BKIMII=430) U Marijuana (THC) Screen (CUTOFF=50) Ethyl Alcohol (0.00) gm% 05/05/19 05/05/19 05/05/19 Range/Units 09:58 10:12 10:12 WBC (3.98-10.04) K/mm3 RBC (3.98-5.22) M/mm3 Hgb (11.2-15.7) gm/dl Hct (34.1-44.9) % MCV (79.4-94.8) fl MCH (25.6-32.2) pg MCHC (32.2-35.5) g/dl RDW Std Deviation (36.4-46.3) fL Plt Count (182-369) K/mm3 MPV (9.4-12.3) fl Neutrophils % (Manual) (40-60) % Band Neutrophils % (0-10) % Lymphocytes % (Manual) (20-40) % Atypical Lymphs % % Monocytes % (Manual) (2-10) % Eosinophils % (Manual) (0.7-5.8) % Basophils % (Manual) (0.1-1.2) Platelet Estimate Anisocytosis RBC Morph Comment ESR (0-20) mm/hr PT (9.7-12.0) SECONDS INR APTT (22-31) SECONDS Sodium (136-145) mEq/L Potassium (3.5-5.1) mEq/L Chloride (98-107) mEq/L Carbon Dioxide (21-32) mEq/L Anion Gap (5-15) BUN (7-18) mg/dL Creatinine (0.55-1.02) mg/dL Est Cr Clr Drug Dosing Estimated GFR (MDRD) (>60) mL/min BUN/Creatinine Ratio (14-18) Glucose (80-115) mg/dL Serum Osmolality 266 L (280-300) mosm/kg Lactic Acid (0.4-2.0) mmol/L Calcium (8.5-10.1) mg/dL Magnesium (1.8-2.4) mg/dl Total Bilirubin (0.2-1.0) mg/dL AST (15-37) U/L ALT (14-59) U/L Alkaline Phosphatase (46-116) U/L Troponin I (0.00-0.056) ng/mL C-Reactive Protein (<1.0) mg/dL NT-Pro-B Natriuret Pep (0-125) pg/mL Total Protein (6.4-8.2) g/dl Albumin (3.4-5.0) g/dl Globulin gm/dL Albumin/Globulin Ratio (1-2) Lipase 47 L (73-393) U/L TSH 3rd Generation 1.995 (0.358-3.74) uIU/mL Urine Color Yellow (Yellow) Urine Appearance Slt cloudy H (Clear) Urine pH 6.0 (5.0-8.0) Ur Specific [place] 1.025 (1.005-1.030) Urine Protein Negative (Negative) Urine Glucose (UA) Negative (Negative) Urine Ketones Negative (Negative) Urine Occult Blood Negative (Negative) Urine Nitrite Negative (Negative) Urine Bilirubin Negative (Negative) Urine Urobilinogen 0.2 (0.2-1.0) Ur Leukocyte Esterase Negative (Negative) Urine RBC 0-5 (0-5) /hpf Urine WBC 0-5 (0-5) /hpf Ur Squamous Epith Cells 0-5 (0-5) /hpf Amorphous Sediment Few H (NOT SEEN) /hpf Urine Bacteria Few (FEW) /hpf Urine Mucus Few (FEW) /hpf Urine Opiates Screen Negative (JUCLCK=219) Ur Buprenorphine Scrn Negative (CUTOFF=10) Ur Oxycodone Screen Negative (PSI6RR=116) Urine Methadone Screen Negative (UAHAMX=748) Ur Propoxyphene Screen Negative (IYEENH=435) Ur Barbiturates Screen Negative (ZODJVB=707) Ur Tricyclics Screen Presumptive positive H (IKBPMN=024) Ur Phencyclidine Scrn Negative (CUTOFF=25) Ur Amphetamine Screen Negative (PFWZBR=089) U Methamphetamines Scrn Negative (CKIVJJ=330) U Benzodiazepines Scrn Presumptive positive H (CSWRMM=468) U Cocaine Metab Screen Negative (CCWANJ=041) U Marijuana (THC) Screen Negative (CUTOFF=50) Ethyl Alcohol (0.00) gm% Result Diagrams: 05/05/19 09:58 05/05/19 09:58 Sepsis Event Note - Evaluation Sepsis Screening Result: No Definite Risk - Focused Exam Vital Signs: Vital Signs Temp Pulse Resp BP Pulse Ox 05/05/19 09:33 97.4 F 73 18 91/51 L 97 Date Exam was Performed: 05/05/19 Time Exam was Performed: 17:13 - Problem List (1) Normocytic normochromic anemia SNOMED Code(s): 05256852 ICD Code: D64.9 - ANEMIA, UNSPECIFIED Status: Acute Current Visit: Yes (2) Dyslipidemia SNOMED Code(s): 850743801 ICD Code: E78.5 - HYPERLIPIDEMIA, UNSPECIFIED Status: Acute Current Visit : Yes (3) Dementia SNOMED Code(s): 97932416 ICD Code: F03.90 - UNSPECIFIED DEMENTIA WITHOUT BEHAVIORAL DISTURBANCE Status: Acute Current Visit: Yes (4) Hypertension SNOMED Code(s): 12257481 ICD Code: I10 - ESSENTIAL (PRIMARY) HYPERTENSION Status: Acute Current Visit: Yes (5) Altered mental status SNOMED Code(s): 631986236 ICD Code: R41.82 - ALTERED MENTAL STATUS, UNSPECIFIED Status: Acute Priority: High Current Visit: No Qualifiers: Altered mental status type: delirium Qualified Code(s): R41.0 - Disorientation, unspecified (6) Anxiety SNOMED Code(s): 68580223 ICD Code: F41.9 - ANXIETY DISORDER, UNSPECIFIED Status: Acute Priority: High Current Visit: No (7) Chronic renal insufficiency, stage IV (severe) SNOMED Code(s): 493113961 ICD Code: N18.4 - CHRONIC KIDNEY DISEASE, STAGE 4 (SEVERE) Status: Acute Current Visit: Yes (8) Depression SNOMED Code(s): 36932537 ICD Code: F32.9 - MAJOR DEPRESSIVE DISORDER, SINGLE EPISODE, UNSPECIFIED Status: Acute Priority: High Current Visit: No Qualifiers: Depression Type: unspecified Qualified Code(s): F32.9 - Major depressive disorder, single episode, unspecified (9) Hypoalbuminemia SNOMED Code(s): 680917942 ICD Code: E88.09 - OTH DISORDERS OF PLASMA-PROTEIN METABOLISM, NEC Status: Chronic Priority: Medium Current Visit: No (10) Hyponatremia with decreased serum osmolality SNOMED Code(s): 487469881 ICD Code: E87.1 - HYPO-OSMOLALITY AND HYPONATREMIA Status: Acute Current Visit: No (11) Hypotension SNOMED Code(s): 07621762 ICD Code: I95.9 - HYPOTENSION, UNSPECIFIED Status: Acute Current Visit: Yes Qualifiers: Hypotension type: unspecified hypotension type Qualified Code(s): I95.9 - Hypotension, unspecified (12) Hypothyroid SNOMED Code(s): 47877408 ICD Code: E03.9 - HYPOTHYROIDISM, UNSPECIFIED Status: Acute Current Visit : No (13) Inverse psoriasis SNOMED Code(s): 18695534 ICD Code: L40.8 - OTHER PSORIASIS Status: Acute Priority: High Current Visit: No (14) Schizophrenia with prominent negative symptoms SNOMED Code(s): 87958424 ICD Code: F20.89 - OTHER SCHIZOPHRENIA Status: Acute Current Visit: Yes (15) Volume depletion, unspecified SNOMED Code(s): 94056297 ICD Code: E86.9 - VOLUME DEPLETION, UNSPECIFIED Status: Acute Current Visit: Yes (16) Hypokalemia SNOMED Code(s): 93456712 ICD Code: E87.6 - HYPOKALEMIA Status: Resolved Priority: High Current Visit: No (17) Hyponatremia SNOMED Code(s): 09706909 ICD Code: E87.1 - HYPO-OSMOLALITY AND HYPONATREMIA Status: Chronic Priority: High Current Visit: No Problem List Initiated/Reviewed/Updated: Yes Assessment/Plan Comment:: Refractory hypotension in the setting of hypertension Hyponatremia with decreased serum osmolality Volume depletion, unspecified Hypokalemia Chronic renal insufficiency, stage IV (severe) BP on admission 91/51 without improvement Unable to be liberal with fluids due to hyponatremia Na 125 and serum osm 266 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 PLAN - Central line placement - Start on norepinephrine - Urine Na and electrolytes as well as Osmolality - Fluid restriction 1.5L - Monitor urine output - Avoid nephrotoxic medications - Renally dosed medications Normocytic normochromic anemia No signs of acute bleeding PLAN - Ferritin, B12 and folic acid - Reticulocyte count - Repeat labs as needed - Transfusion if <7 Altered mental status Dementia Schizophrenia with prominent negative symptoms Anxiety/Depression Was supposed to be admitted to inpatient psychiatry in [place] but was found to be hypotensive and sent here PLAN - Continue home medications - Let me sleep protocol as much as possible - Avoid extra central acting medications Hypoalbuminemia Significantly decreased Unknown adequacy of PO intake and diet PLAN - Prealbumin ordered - Dietary will be consulted Dyslipidemia No acute issues PLAN - Continue home management Hypothyroid No acute issues PLAN - Continue home management Inverse psoriasis Chronic dermatosis No signs of infection PLAN - Continue home medications PROPHYLAXIS DVT- SCDs GI- not indicated CODE STATUS: FULL CODE DISPOSITION: Patient will be admitted to the ICU for norepinephrine to maintain blood pressure and weaning off as soon as possible while monitoring sodium and mental status. manager agency ans dialysis social worker have been consulted - Mortality Measure Prognosis:: Poor Central Line Insertion - Central Line Insertion Site: internal jugular (R) Prep: Sterile Drapes, Chlorhexidine Lumen: triple Gauge: 7Fr Local Anesthesia - Lidocaine (Xylocaine): 1% Plain Local Anesthetic Volume: 3cc Ultrasound guided: Yes Micropuncture kit used: Yes CL Complications: No Secured with suture: Yes Post placement confirmation: CXR, all ports aspirated, all ports flushed CXR post-procedure: no pneumothorax, no hemothorax Dressing applied: by provider
[2019-05-05] MEDS: Norepinephrine 4 MG in Dextrose 5% in Water 246 ML IV SCH ×2 (14:49)
--- NOTE | 2019-05-05 14:49 | PCM.PRNOTE ---
- Free Text/Narrative Note: Central Venous Catheter Placement Date: 05/05/19 Time: 14:32 Indication: Hemodynamic monitoring and intravenous access Attending: Sue Rey MD A time-out was completed verifying correct patient, procedure, site, positioning , and special equipment. The patient was placed in a dependent position appropriate for central line placement based on the vein to be cannulated. The patients right neck was prepped and draped in sterile fashion. 1% Lidocaine was used to anesthetize the surrounding skin area. A triple lumen 7-[place] Cordis catheter was introduced into the the internal jugular using the Seldinger technique and under ultrasound guidance. The catheter was threaded smoothly over the guide wire and appropriate blood return was obtained. Each lumen of the catheter was evacuated of air and flushed with sterile saline. The catheter was then sutured in place to the skin and a sterile dressing applied. Perfusion to the extremity distal to the point of catheter insertion was checked and found to be adequate. Estimated Blood Loss: 5mL The patient tolerated the procedure well and there were no complications.
--- NOTE | 2019-05-05 15:03 | CR ---
Chest: Portable view of the chest was obtained. Comparison: Prior chest x-ray of 05/05/19. Right sided central line is seen. Tip is difficult to see but lies at least within the intrahepatic portion of the inferior vena cava. Slight atelectasis is seen within both lung bases. Lungs otherwise are clear with no acute parenchymal change. Heart size is felt to be slightly enlarged. Tortuous thoracic aorta is seen. No pneumothorax is identified. Impression: 1. Tip difficult to see but lies at least within the intrahepatic portion of the inferior vena cava. 2. Slight atelectasis. Nothing acute is otherwise seen. No pneumothorax. Diagnostic code #3 This report was dictated in [place] Standard Time
[2019-05-05] MEDS ORDERED: Acetaminophen 325 MG Tab PO PRN (15:38)
[2019-05-05] MEDS ORDERED: Ondansetron 4 MG/2 ML SDV IV PRN (15:38)
[2019-05-05] MEDS ORDERED: Ondansetron 4 MG Tab.DIS PO PRN (15:38)
[2019-05-05] MEDS ORDERED: Albuterol/Ipratropium 3.0-0.5 MG/3 ML Neb Soln NEB PRN (15:38)
[2019-05-06] MEDS ORDERED: CHLORHEXIDINE TOP SCH (09:00)
[2019-05-06] MEDS ORDERED: Magnesium Sulfate/Water 4 GM in Premix Bag 1 BAG IV ONE (12:11)
[2019-05-06] MEDS: Enoxaparin 40 MG/0.4 ML Syringe SUBCUT SCH (13:18)
[2019-05-06] MEDS: Sodium Chloride/Potassium Chloride Tab PO SCH ×3 (13:18→21:13)
[2019-05-06] MEDS ORDERED: Miconazole 2% Crm 42.5 GM Tube TOP PRN (20:39)
[2019-05-06] MEDS ORDERED: Polyethylene Glycol 3350 Powder 17 GM Packet PO PRN (20:39)
[2019-05-06] MEDS ORDERED: guaiFENesin 100 MG/5 ML Soln 10 ML UD Cup PO PRN (21:00)
[2019-05-06] MEDS ORDERED: Clotrimazole 1% Crm 30 GM Tube TOP PRN (21:00)
[2019-05-06] MEDS ORDERED: LORazepam 2 MG/ML SDV IVPUSH PRN (21:03)
[2019-05-06] MEDS: ARIPiprazole 10 MG Tab PO SCH (21:13)
[2019-05-06] MEDS: Dorzolamide/Timolol 2%-0.5% Ophth Soln 10 ML Bottle EYEBOTH SCH (21:13)
[2019-05-06] MEDS: Betamethasone Valerate 0.1% Crm 15 GM Tube TOP SCH (21:16)
[2019-05-06] MEDS: Norepinephrine 4 MG in Dextrose 5% in Water 246 ML IV SCH ×2 (21:46)
--- NOTE | 2019-05-06 22:24 | PCM.PN ---
- General Info Date of Service: 05/06/19 Admission Dx/Problem (Free Text): Refusing meals Subjective Update: Slept ok refusing food Patient is altered but not aggressive She continues to have hallucinations but they Levophed at 2 - Patient Data Weight - Most Recent: 68.946 kg - Exam Physical Findings Comments:: Eye Exam: psoriasis in upper eyelids and scale on her eyelashes. Neck: Normal Inspection, Supple, Non-Tender, Full Range of Motion. No: Carotid Bruit, Lymphadenopathy (L), Lymphadenopathy (R) Respiratory/Chest: No Respiratory Distress, Lungs Clear, Normal Breath Sounds, No Accessory Muscle Use Cardiovascular: Normal Peripheral Pulses, Regular Rate, Rhythm, No Edema, No Gallop, No Murmur, No Rub Peripheral Pulses: 1+: Posterior Tibial (L), Posterior Tibial (R), Dorsalis Pedis (L), Dorsalis Pedis (R) GI/Abdominal: Normal Bowel Sounds, Soft, Non-Tender, No Organomegaly, No Abnormal Bruit, No Mass, Pelvis Stable. No: Guarding, Rigid, Rebound (Female) Exam: Other (Intertrigo in the inguinal folds.) Back Exam: Normal Inspection, Full Range of Motion. No: CVA Tenderness (L), CVA Tenderness (R) Extremities: Other (Skin of the extremities appears to be very dry.) Neurological: Alert, CN II-XII Intact, No Motor/Sensory Deficits (Moves all limbs without any deficit.). No: Oriented Psychiatric: Anxious. No: Normal Affect, Normal Mood Skin Exam: Warm, Dry, Intact, Normal Color, Severe psoriasis affecting her scalp and face. Diffuse severe seborrheic care dermatitis of involving her scalp Sepsis Event Note - Evaluation Sepsis Screening Result: No Definite Risk - Focused Exam Vital Signs: Vital Signs Temp Resp BP Pulse Ox 05/06/19 18:44 17 117/68 99 05/06/19 18:00 15 109/65 99 05/06/19 17:00 12 118/74 98 05/06/19 16:00 97 F 13 100/66 100 05/06/19 15:39 98 05/06/19 15:00 96.9 F 16 122/58 L 100 05/06/19 14:00 16 121/75 99 05/06/19 13:00 97.5 F 16 121/75 99 05/06/19 12:00 97.2 F 18 117/59 L 96 05/06/19 11:00 14 100/56 L 99 Date Exam was Performed: 05/06/19 Time Exam was Performed: 22:58 - Problem List & Annotations (1) Normocytic normochromic anemia SNOMED Code(s): 40236723 Code(s): D64.9 - ANEMIA, UNSPECIFIED Status: Acute Current Visit: Yes (2) Dyslipidemia SNOMED Code(s): 110504861 Code(s): E78.5 - HYPERLIPIDEMIA, UNSPECIFIED Status: Acute Current Visit : Yes (3) Dementia SNOMED Code(s): 76842391 Code(s): F03.90 - UNSPECIFIED DEMENTIA WITHOUT BEHAVIORAL DISTURBANCE Status: Acute Current Visit: Yes (4) Hypertension SNOMED Code(s): 82628885 Code(s): I10 - ESSENTIAL (PRIMARY) HYPERTENSION Status: Acute Current Visit: Yes (5) Altered mental status SNOMED Code(s): 876775817 Code(s): R41.82 - ALTERED MENTAL STATUS, UNSPECIFIED Status: Acute Priority: High Current Visit: No Qualifiers: Altered mental status type: delirium Qualified Code(s): R41.0 - Disorientation, unspecified (6) Anxiety SNOMED Code(s): 97630778 Code(s): F41.9 - ANXIETY DISORDER, UNSPECIFIED Status: Acute Priority: High Current Visit: No (7) Chronic renal insufficiency, stage IV (severe) SNOMED Code(s): 364192386 Code(s): N18.4 - CHRONIC KIDNEY DISEASE, STAGE 4 (SEVERE) Status: Acute Current Visit: Yes (8) Depression SNOMED Code(s): 51071271 Code(s): F32.9 - MAJOR DEPRESSIVE DISORDER, SINGLE EPISODE, UNSPECIFIED Status: Acute Priority: High Current Visit: No Qualifiers: Depression Type: unspecified Qualified Code(s): F32.9 - Major depressive disorder, single episode, unspecified (9) Hypoalbuminemia SNOMED Code(s): 922362924 Code(s): E88.09 - OTH DISORDERS OF PLASMA-PROTEIN METABOLISM, NEC Status: Chronic Priority: Medium Current Visit: No (10) Hyponatremia with decreased serum osmolality SNOMED Code(s): 650478105 Code(s): E87.1 - HYPO-OSMOLALITY AND HYPONATREMIA Status: Acute Current Visit: No (11) Hypotension SNOMED Code(s): 78712487 Code(s): I95.9 - HYPOTENSION, UNSPECIFIED Status: Acute Current Visit: Yes Qualifiers: Hypotension type: unspecified hypotension type Qualified Code(s): I95.9 - Hypotension, unspecified (12) Hypothyroid SNOMED Code(s): 68571423 Code(s): E03.9 - HYPOTHYROIDISM, UNSPECIFIED Status: Acute Current Visit : No (13) Inverse psoriasis SNOMED Code(s): 51662167 Code(s): L40.8 - OTHER PSORIASIS Status: Acute Priority: High Current Visit: No (14) Schizophrenia with prominent negative symptoms SNOMED Code(s): 06613023 Code(s): F20.89 - OTHER SCHIZOPHRENIA Status: Acute Current Visit: Yes (15) Volume depletion, unspecified SNOMED Code(s): 99826487 Code(s): E86.9 - VOLUME DEPLETION, UNSPECIFIED Status: Acute Current Visit: Yes (16) Hyponatremia SNOMED Code(s): 58422795 Code(s): E87.1 - HYPO-OSMOLALITY AND HYPONATREMIA Status: Chronic Priority: High Current Visit: No (17) Pressure ulcer of buttock SNOMED Code(s): 585653544 Code(s): L89.309 - PRESSURE ULCER OF UNSPECIFIED BUTTOCK, UNSPECIFIED STAGE Status: Acute Current Visit: Yes Qualifiers: Pressure injury stage: stage 2 Laterality: left Qualified Code(s): L89.322 - Pressure ulcer of left buttock, stage 2 - Problem List Review Problem List Initiated/Reviewed/Updated: Yes - My Orders Last 24 Hours: My Active Orders 05/06/19 11:01 Notify Provider Consults [RC] ASDIRECTED Consult to Physician [CONS] Routine 05/06/19 11:37 PT Evaluation and Treatment [CONS] Routine 05/06/19 11:45 Sodium Chloride/KCl [Thermotabs] 1 each PO TID 05/06/19 14:00 Enoxaparin [Lovenox] 40 mg SUBCUT Q24H 05/06/19 20:39 Miconazole [Miconazole] 1 applic TOP DAILY PRN Polyethylene Glycol 3350 [MiraLAX] 17 gm PO BID PRN 05/06/19 20:45 Ferrous Sulfate 324 mg PO Q48H Hibclen Wash. 1 applic TOP MOWESA 05/06/19 21:00 Insert Caro Catheter [Insert Urinary Catheter] [OM.PC] Q24H ARIPiprazole [Abilify] 20 mg PO BEDTIME Betamethasone Valerate [Valisone 0.1% Crm] 0 gm TOP BID Clotrimazole [Lotrimin AF 1% Crm] 0 gm TOP DAILY PRN Dorzolamide/Timolol [Cosopt 2%-0.5% Ophth Soln] 0 ml EYEBOTH BID Lactobacillus Acidophilus [Acidophilus] 175 mg PO BID Tacrolimus Anhydrous [Tacrolimus] 1 applic TOP BID cloZAPine [Clozapine] 300 mg PO BEDTIME guaiFENesin [Robitussin] 200 mg PO TID PRN levOCARNitine [Levocarnitine] 990 mg PO BID 05/06/19 21:03 LORazepam [Ativan] 1 mg IVPUSH Q6H PRN 05/06/19 22:22 Urinary Catheter Assessment [RC] Q4HR 05/07/19 01:00 PHOSPHORUS [CHEM] Q4H 05/07/19 06:00 Levothyroxine [Synthroid] 88 mcg PO ACBREAKFAST 05/07/19 09:00 Chlorhexidine 4% 1 applic TOP DAILY Cholecalciferol (Vitamin D3) [Vitamin D3] 50 mcg PO DAILY Fenofibrate Nanocrystallized [Tricor] 145 mg PO DAILY Folic Acid 1 mg PO DAILY Multivitamins,Therapeutic [Thera] 1 each PO DAILY Vitamin B6-pyridOXINE 50 mg PO DAILY cloZAPine [Clozapine] 200 mg PO DAILY - Plan Plan:: Refractory hypotension in the setting of hypertension Hyponatremia with decreased serum osmolality Volume depletion, unspecified Hypokalemia Chronic renal insufficiency, stage IV (severe) BP on admission 91/51 without improvement Unable to be liberal with fluids due to hyponatremia Na 125 and serum osm 266 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 PLAN - Central line placement - Start on norepinephrine - Urine Na and electrolytes as well as Osmolality - Fluid restriction 1.5L - Monitor urine output - Avoid nephrotoxic medications - Renally dosed medications Normocytic normochromic anemia No signs of acute bleeding PLAN - Ferritin, B12 and folic acid - Reticulocyte count - Repeat labs as needed - Transfusion if <7 Altered mental status Dementia Schizophrenia with prominent negative symptoms Anxiety/Depression Was supposed to be admitted to inpatient psychiatry in [place] but was found to be hypotensive and sent here PLAN - Continue home medications - Let me sleep protocol as much as possible - Avoid extra central acting medications Hypoalbuminemia Significantly decreased Unknown adequacy of PO intake and diet PLAN - Prealbumin ordered - Dietary will be consulted Dyslipidemia No acute issues PLAN - Continue home management Hypothyroid No acute issues PLAN - Continue home management Inverse psoriasis Chronic dermatosis No signs of infection PLAN - Continue home medications PROPHYLAXIS DVT- SCDs GI- not indicated CODE STATUS: FULL CODE DISPOSITION: Patient will be admitted to the ICU for norepinephrine to maintain blood pressure and weaning off as soon as possible while monitoring sodium and mental status. event sales manager ans social media executive have been consulted
[2019-05-06] MEDS: cloZAPine 100 MG Tab PO SCH (22:47)
[2019-05-07] MEDS: Levothyroxine 88 MCG Tab PO SCH (06:00)
[2019-05-07] MEDS ORDERED: Ferrous Sulfate 324 MG Tab.EC PO SCH (09:00)
[2019-05-07] MEDS: Multivitamins,Therapeutic Tab PO SCH (09:26)
[2019-05-07] MEDS: Saccharomyces Boulardii (Probiotic) 250 MG Cap PO SCH ×3 (09:26→21:13)
[2019-05-07] MEDS: Fenofibrate Nanocrystallized 145 MG Tab PO SCH (09:27)
[2019-05-07] MEDS: Cholecalciferol (Vitamin D3) 25 MCG Tab PO SCH (09:27)
[2019-05-07] MEDS: LEVOCARNITINE 990 MG PO SCH ×3 (09:27→22:28)
[2019-05-07] MEDS: cloZAPine 100 MG Tab PO SCH ×2 (09:27→21:13)
[2019-05-07] MEDS: TACROLIMUS ANHYDROUS TOP SCH ×3 (09:28→22:28)
[2019-05-07] MEDS: Vitamin B6-pyridOXINE 50 MG Tab PO SCH (09:28)
[2019-05-07] MEDS: Folic Acid 1 MG Tab PO SCH (09:28)
[2019-05-07] MEDS: Sodium Chloride/Potassium Chloride Tab PO SCH ×3 (09:28→21:13)
[2019-05-07] MEDS: Dorzolamide/Timolol 2%-0.5% Ophth Soln 10 ML Bottle EYEBOTH SCH ×2 (09:33→21:14)
[2019-05-07] MEDS: CHLORHEXIDINE 4% TOP SCH (09:34)
[2019-05-07] MEDS: Betamethasone Valerate 0.1% Crm 15 GM Tube TOP SCH ×3 (09:36→21:14)
[2019-05-07] MEDS: Midodrine 5 MG Tab PO SCH ×2 (10:40→17:23)
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
[2019-05-07] MEDS: Enoxaparin 40 MG/0.4 ML Syringe SUBCUT SCH (14:33)
[2019-05-07] MEDS: ARIPiprazole 10 MG Tab PO SCH (21:13)
[2019-05-08] MEDS: Midodrine 5 MG Tab PO SCH ×3 (06:22→16:54)
[2019-05-08] MEDS: Levothyroxine 88 MCG Tab PO SCH (06:22)
[2019-05-08] MEDS: Cholecalciferol (Vitamin D3) 25 MCG Tab PO SCH (08:26)
[2019-05-08] MEDS: Sodium Chloride/Potassium Chloride Tab PO SCH ×2 (08:26→14:59)
[2019-05-08] MEDS: Dorzolamide/Timolol 2%-0.5% Ophth Soln 10 ML Bottle EYEBOTH SCH (08:26)
[2019-05-08] MEDS: Folic Acid 1 MG Tab PO SCH (08:27)
[2019-05-08] MEDS: Saccharomyces Boulardii (Probiotic) 250 MG Cap PO SCH (08:27)
[2019-05-08] MEDS: Fenofibrate Nanocrystallized 145 MG Tab PO SCH (08:27)
[2019-05-08] MEDS: Vitamin B6-pyridOXINE 50 MG Tab PO SCH (08:27)
[2019-05-08] MEDS: cloZAPine 100 MG Tab PO SCH (08:27)
[2019-05-08] MEDS: Multivitamins,Therapeutic Tab PO SCH (08:27)
[2019-05-08] MEDS: Betamethasone Valerate 0.1% Crm 15 GM Tube TOP SCH (08:29)
--- NOTE | 2019-05-08 08:41 | PCM.PN ---
- General Info Date of Service: 05/08/19 Admission Dx/Problem (Free Text): Refusing meals - Patient Data Vitals - Most Recent: Last Vital Signs Temp 97.9 F 05/08/19 06:21 Pulse 110 H 05/08/19 06:21 Resp 18 05/08/19 06:21 BP 125/72 05/08/19 06:21 Pulse Ox 96 05/08/19 06:21 Weight - Most Recent: 174 lb 9.6 oz I&O - Last 24 Hours: Intake & Output 05/07/19 05/08/19 05/08/19 22:59 06:59 14:59 Intake Total 175 200 Output Total 200 375 Balance -25 -175 Navdeep Results Last 24 Hours: Microbiology 05/05/19 09:58 Aerobic Blood Culture - Preliminary Blood - Venous Gram Positive Cocci In Clustrs Anaerobic Blood Culture - Final Med Orders - Current: Current Medications Acetaminophen (Tylenol) 650 mg PO Q4H PRN PRN Reason: Pain (Mild 1-3)/fever Albuterol/Ipratropium (Duoneb 3.0-0.5 Mg/3 Ml) 3 ml NEB Q4H PRN PRN Reason: Shortness Of Breath/wheezing Aripiprazole (Abilify) 20 mg PO BEDTIME [facility] Last Admin: 05/07/19 21:13 Dose: 20 mg Betamethasone Valerate (Valisone 0.1% Crm) 0 gm TOP BID [facility] Last Admin: 05/08/19 08:29 Dose: 1 applic Cholecalciferol (Vitamin D3) 50 mcg PO DAILY [facility] Last Admin: 05/08/19 08:26 Dose: 50 mcg Clotrimazole (Lotrimin Af 1% Crm) 0 gm TOP DAILY PRN PRN Reason: RASH Clozapine (Clozapine) 200 mg PO DAILY [facility] Last Admin: 05/08/19 08:27 Dose: 200 mg Clozapine (Clozapine) 300 mg PO BEDTIME [facility] Last Admin: 05/07/19 21:13 Dose: 300 mg Dorzolamide/Timolol (Cosopt 2%-0.5% Ophth Soln) 0 ml EYEBOTH BID [facility] Last Admin: 05/08/19 08:26 Dose: 1 drop Enoxaparin Sodium (Lovenox) 40 mg SUBCUT Q24H [facility] Last Admin: 12/19/19 14:33 Dose: 40 mg Fenofibrate (Tricor) 145 mg PO DAILY [facility] Last Admin: 05/08/19 08:27 Dose: 145 mg Ferrous Sulfate (Ferrous Sulfate) 324 mg PO Q48H [facility] Last Admin: 05/07/19 10:40 Dose: 324 mg Folic Acid (Folic Acid) 1 mg PO DAILY [facility] Last Admin: 05/08/19 08:27 Dose: 1 mg Guaifenesin (Robitussin) 200 mg PO TID PRN PRN Reason: cough Levothyroxine Sodium (Synthroid) 88 mcg PO ACBREAKFAST [facility] Last Admin: 05/08/19 06:22 Dose: 88 mcg Lorazepam (Ativan) 1 mg IVPUSH Q6H PRN PRN Reason: Anxiety Last Admin: 05/06/19 21:20 Dose: 1 mg Miconazole (Micatin 2% Crm) 0 gm TOP DAILY PRN PRN Reason: Rash Midodrine (Midodrine) 5 mg PO TIDAC [facility] Last Admin: 05/08/19 06:22 Dose: 5 mg Multivitamins (Thera) 1 each PO DAILY [facility] Last Admin: 05/08/19 08:27 Dose: 1 each Ondansetron HCl (Zofran Odt) 4 mg PO Q6H PRN PRN Reason: nausea, able to take PO Ondansetron HCl (Zofran) 4 mg IV Q6H PRN PRN Reason: Nausea/Vomiting Oral Electrolytes (Thermotabs) 2 each PO TID [facility] Last Admin: 05/08/19 08:26 Dose: 2 each Chlorhexidine 4% 1 (Applic) 0 each TOP DAILY [facility] Last Admin: 05/07/19 09:34 Dose: Not Given Hibclen Wash. 1 (Applic) 0 each TOP [place] [facility] Last Admin: 05/07/19 09:33 Dose: Not Given Levocarnitine [ Levocarnitine] 990 Mg 0 each PO BID [facility] Last Admin: 05/07/19 22:28 Dose: Not Given Tacrolimus Anhydrous [Tacrolimus] 1 Applic 0 each TOP BID [facility] Last Admin: 05/07/19 22:28 Dose: Not Given Polyethylene Glycol (Miralax) 17 gm PO BID PRN PRN Reason: Constipation Pyridoxine HCl (Vitamin B6-Pyridoxine) 50 mg PO DAILY [facility] Last Admin: 05/08/19 08:27 Dose: 50 mg Saccharomyces Boulardii (Florastor) 250 mg PO BID [facility] Last Admin: 05/08/19 08:27 Dose: 250 mg Discontinued Medications Bumetanide (Bumex) 1 mg IVPUSH ONETIME ONE Stop: 05/05/19 11:40 Last Admin: 05/05/19 12:18 Dose: 1 mg Dextrose/Lactated Ringer's (Dextrose 5%-Lactated Ringers) 1,000 mls @ 999 mls/ hr IV ASDIRECTED [facility] Last Admin: 05/05/19 09:50 Dose: 999 mls/hr Potassium Chloride 10 meq/ (Premix) 100 mls @ 100 mls/hr IV Q1H [facility] Stop: 05/05/19 17:14 Last Admin: 05/05/19 18:54 Dose: 100 mls/hr Sodium Chloride (Normal Saline) 1,000 mls @ 75 mls/hr IV ASDIRECTED [facility] Last Admin: 05/05/19 23:24 Dose: 75 mls/hr Norepinephrine Bitartrate 4 mg (/ Dextrose/Water) 250 mls @ 7.5 mls/hr IV TITRATE [facility]; Protocol Last Titration: 05/06/19 22:55 Dose: 0 mcg/min, 0 mls/hr Magnesium Sulfate 4 gm/ Premix 50 mls @ 12.5 mls/hr IV ONETIME ONE Stop: 05/06/19 16:10 Last Admin: 05/06/19 13:19 Dose: 12.5 mls/hr Lorazepam (Ativan) Confirm Administered Dose 2 mg .ROUTE .STK-MED ONE Stop: 05/05/19 14:07 Last Admin: 05/05/19 14:42 Dose: Not Given Lorazepam (Ativan) 2 mg IVPUSH ONETIME ONE Stop: 05/05/19 14:40 Last Admin: 05/05/19 14:50 Dose: 2 mg Oral Electrolytes (Thermotabs) 1 each PO TID [facility] Last Admin: 05/06/19 21:13 Dose: 1 each Sepsis Event Note - Evaluation Sepsis Screening Result: No Definite Risk - Focused Exam Vital Signs: Vital Signs Temp Pulse Resp BP Pulse Ox 05/08/19 06:21 97.9 F 110 H 18 125/72 96 Date Exam was Performed: 05/08/19 Time Exam was Performed: 08:41 - Problem List & Annotations (1) Chronic renal insufficiency, stage IV (severe) SNOMED Code(s): 454964990 Code(s): N18.4 - CHRONIC KIDNEY DISEASE, STAGE 4 (SEVERE) Status: Chronic Priority: Medium Current Visit: Yes (2) Dementia SNOMED Code(s): 55289281 Code(s): F03.90 - UNSPECIFIED DEMENTIA WITHOUT BEHAVIORAL DISTURBANCE Status: Chronic Priority: High Current Visit: Yes Qualifiers: Dementia type: unspecified type Dementia behavioral disturbance: with behavioral disturbance Qualified Code(s): F03.91 - Unspecified dementia with behavioral disturbance (3) Dyslipidemia SNOMED Code(s): 246991448 Code(s): E78.5 - HYPERLIPIDEMIA, UNSPECIFIED Status: Chronic Priority: Low Current Visit: No (4) Hypotension SNOMED Code(s): 12247798 Code(s): I95.9 - HYPOTENSION, UNSPECIFIED Status: Acute Priority: High Current Visit: Yes Qualifiers: Hypotension type: unspecified hypotension type Qualified Code(s): I95.9 - Hypotension, unspecified (5) Normocytic normochromic anemia SNOMED Code(s): 76565164 Code(s): D64.9 - ANEMIA, UNSPECIFIED Status: Chronic Priority: Medium Current Visit: Yes (6) Pressure ulcer of buttock SNOMED Code(s): 415947725 Code(s): L89.309 - PRESSURE ULCER OF UNSPECIFIED BUTTOCK, UNSPECIFIED STAGE Status: Acute Priority: High Current Visit: Yes Qualifiers: Pressure injury stage: stage 2 Laterality: left Qualified Code(s): L89.322 - Pressure ulcer of left buttock, stage 2 (7) Schizophrenia with prominent negative symptoms SNOMED Code(s): 22610323 Code(s): F20.89 - OTHER SCHIZOPHRENIA Status: Chronic Priority: High Current Visit: Yes (8) Volume depletion, unspecified SNOMED Code(s): 60475916 Code(s): E86.9 - VOLUME DEPLETION, UNSPECIFIED Status: Resolved Priority : High Current Visit: Yes (9) Altered mental status SNOMED Code(s): 885443239 Code(s): R41.82 - ALTERED MENTAL STATUS, UNSPECIFIED Status: Chronic Priority: High Current Visit: No Qualifiers: Altered mental status type: delirium Qualified Code(s): R41.0 - Disorientation, unspecified - My Orders Last 24 Hours: My Active Orders 05/07/19 13:07 OT Evaluation and Treatment [CONS] Routine 05/08/19 07:05 BASIC METABOLIC PANEL,BMP [CHEM] Routine MAGNESIUM [CHEM] Routine - Plan Plan:: Refractory hypotension in the setting of hypertension Hyponatremia with decreased serum osmolality, stable and chronic Volume depletion, unspecified Hypokalemia, resolved Chronic renal insufficiency, stage IV (severe), improved BP on admission 91/51 without improvement Unable to be liberal with fluids due to hyponatremia Na 125 and serum osm 266 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 PLAN - Central line placement -> remove today - Start on norepinephrine -> Discontinued - Started on PO midodrine today - Urine Na and electrolytes as well as Osmolality - Fluid restriction 1.5L - Monitor urine output - Avoid nephrotoxic medications - Renally dosed medications Normocytic normochromic anemia, stable No signs of acute bleeding PLAN - Ferritin, B12 and folic acid - Reticulocyte count - Repeat labs as needed - Transfusion if <7 Altered mental status Dementia Schizophrenia with prominent negative symptoms Anxiety/Depression Was supposed to be admitted to inpatient psychiatry in [place] but was found to be hypotensive and sent here PLAN - Continue home medications - Let me sleep protocol as much as possible - Avoid extra central acting medications - Dr. Castro consulted and medications will be adjusted - Will likely need inpatient psychiatry after medically stabilized Hypoalbuminemia Significantly decreased Unknown adequacy of PO intake and diet PLAN - Prealbumin low - Dietary will be consulted Dyslipidemia No acute issues PLAN - Continue home management Hypothyroid No acute issues PLAN - Continue home management Inverse psoriasis Chronic dermatosis No signs of infection PLAN - Continue home medications Positive blood cultures Single positive blood culture off 1ml of blood obtained Gram positive cocci in clusters Questionable contamination No obvious active signs of infection WBC WNL, No fevers PLAN -Repeat cultures today - both peripheral and central line -Hold off of ABX for now Groin ulcer Noted on admission PLAN -PT consulted for wound care - recommends area remain dry -Caro in place to avoid urine contamination PROPHYLAXIS DVT- SCDs GI- not indicated CODE STATUS: FULL CODE DISPOSITION: Patient will be downgraded to the floor as norepinephrine drip has stopped. Discharge once BP has been stable for 24hrs. 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 Will likely need inpatient psychiatry at discharge.
[2019-05-08] MEDS: CHLORHEXIDINE 4% TOP SCH (10:45)
[2019-05-08] MEDS: TACROLIMUS ANHYDROUS TOP SCH (10:46)
[2019-05-08] MEDS: LEVOCARNITINE 990 MG PO SCH (10:46)
--- NOTE | 2019-05-08 13:06 | PCM.DCSUM1 ---
Discharge Summary - Hospital Course HPI Initial Comments: Unable to obtain history from patient due to altered mental status ER DOCUMMENTATION 64-year-old female presents from [facility] where she is a resident. Apparently she has schizophrenia as a primary diagnosis. His not eating or drinking well and due to this fact she received a liter of fluids intravenously yesterday at the skilled nursing but continues to run a very low blood pressure at 71-72 systolic. There's been no suggestion of a febrile illness. This morning she is not much better. She was therefore sent to the ED for medical clearance evaluation and tentatively to be admitted to the psychiatric facility in [facility] in [facility] if cleared medically. Patient speaks in tangents and is not oriented to person place or time. Apparently this is her norm. She is also on Aricept for dementia at this time. Her med list indicates that she was on a course of Bactrim double strength twice daily starting April 17 as well as Levaquin 500 milligrams once daily for unclear source of infection. Apparently both of these medications are finished Onset: Unknown/Unsure (Apparently blood pressures been running low and she's not been eating well for the last 3-4 days.) Duration: Day(s):, Getting Worse Location: Reports: Generalized (Generalized poor oral intake of fluids and solids.) Quality: Reports: Other (Patient suffers from schizophrenia) Severity: Severe Improves with: Reports: None Worsens with: Reports: None Context: Denies: Activity, Exercise, Lifting, Sick Contact, Trauma, Other Associated Symptoms: Reports: Confusion, Cough (Reportedly shows a mild cough I did not hear her cough), Loss of Appetite, Malaise ( when it was in the room.), Rash (Patient has a chronic severe seborrheic dermatitis involving her scalp and face particularly her upper eyelids and eyelashes and also her upper extremities.). 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 (see below) (Only her usual medications.) Diagnosis: Stroke: No - Discharge Data Discharge Date: 05/08/19 (Admit date: 05/05/19) Discharge Disposition: DC/Tfer to Acute Hospital 02 Condition: Stable - Referral to Home Health Primary Care Physician: Nikko Stevens MD - Discharge Diagnosis/Problem(s) (1) Chronic renal insufficiency, stage IV (severe) SNOMED Code(s): 169146187 ICD Code: N18.4 - CHRONIC KIDNEY DISEASE, STAGE 4 (SEVERE) Status: Chronic Priority: Medium Current Visit: Yes (2) Dementia SNOMED Code(s): 66003561 ICD Code: F03.90 - UNSPECIFIED DEMENTIA WITHOUT BEHAVIORAL DISTURBANCE Status: Chronic Priority: High Current Visit: Yes Qualifiers: Dementia type: unspecified type Dementia behavioral disturbance: with behavioral disturbance Qualified Code(s): F03.91 - Unspecified dementia with behavioral disturbance (3) Dyslipidemia SNOMED Code(s): 367842514 ICD Code: E78.5 - HYPERLIPIDEMIA, UNSPECIFIED Status: Chronic Priority: Low Current Visit: No (4) Hypotension SNOMED Code(s): 78633955 ICD Code: I95.9 - HYPOTENSION, UNSPECIFIED Status: Acute Priority: High Current Visit: Yes Qualifiers: Hypotension type: unspecified hypotension type Qualified Code(s): I95.9 - Hypotension, unspecified (5) Normocytic normochromic anemia SNOMED Code(s): 29149222 ICD Code: D64.9 - ANEMIA, UNSPECIFIED Status: Chronic Priority: Medium Current Visit: Yes (6) Pressure ulcer of buttock SNOMED Code(s): 553158045 ICD Code: L89.309 - PRESSURE ULCER OF UNSPECIFIED BUTTOCK, UNSPECIFIED STAGE Status: Acute Priority: High Current Visit: Yes Qualifiers: Pressure injury stage: stage 2 Laterality: left Qualified Code(s): L89.322 - Pressure ulcer of left buttock, stage 2 (7) Schizophrenia with prominent negative symptoms SNOMED Code(s): 73549562 ICD Code: F20.89 - OTHER SCHIZOPHRENIA Status: Chronic Priority: High Current Visit: Yes (8) Volume depletion, unspecified SNOMED Code(s): 35353817 ICD Code: E86.9 - VOLUME DEPLETION, UNSPECIFIED Status: Resolved Priority : High Current Visit: Yes (9) Altered mental status SNOMED Code(s): 606860569 ICD Code: R41.82 - ALTERED MENTAL STATUS, UNSPECIFIED Status: Chronic Priority: High Current Visit: No Qualifiers: Altered mental status type: delirium Qualified Code(s): R41.0 - Disorientation, unspecified - Patient Summary/Data Consults: Consultations 05/05/19 15:45 Consult to Case Management/Traffic Coordinator [CONS] Routine 05/06/19 11:01 Consult to Physician [CONS] Routine 05/06/19 11:37 PT Evaluation and Treatment [CONS] Routine 05/07/19 13:06 PT Evaluation and Treatment [CONS] Routine 05/07/19 13:07 OT Evaluation and Treatment [CONS] Routine Labs Pending at D/C: Blood cultures - Positive initial peripheral thought to be contamination. Awaiting identification of bacteria. 1 mL of blood drawn then. Repeat cultures drawn through central line negative thus far. ( no antibiotic treatment given between these 2 sets.) Hospital Course: "Beckie" as admitted through the ED for hypotension requiring a Levophed drip. She initially presented to the emergency room to be cleared for psychiatric transport to [place] and was found to be very hypotensive. She was unresponsive to fluid boluses so a central line was placed in the ED and she was admitted to the ICU with Levophed running. This was eventually able to be weaned down and discontinued. By mouth Midodrine 3 times a day was started with good response and blood pressures remained stable for over 24 hours. Patient was noted to have 4 wounds in her groin, 3 which were tunneling. PT wound care did see her and recommended these remain dry but did not think further treatment was needed. Caro catheter was placed to ensure that the area was dry and because she was voiding on herself. Blood cultures were obtained in the ED. At that time she was a very difficult draw and only 1 mL of blood was obtained. This is growing gram-positive cocci in clusters and it is felt that this is likely contamination. Repeat blood cultures were drawn and although they are still pending labs states that they're not seeing anything. Her repeat cultures were drawn through her central line. She has had no leukocytosis or fevers while here, or any other signs of infection. She was noted to be hyponatremic on admission and Thermo tabs were ordered with minimal response. Of note she has been hypotensive for quite some time and it is believed that this is likely confounded by her polydipsia. Patient has been on a fluid restriction and is very adamant about receiving more water. It is thought she is likely washing out her sodium. PT and OT were ordered however the patient would curse at them and not allow them to be in her room. Dietitians did see her and note that she has not been eating anything. She did report that she would drink Gatorade and mellow yellow, although when this was offered to her she ultimately refused. They did contact her half-way facility who did report similar problems where the patient has essentially become anorexic. She did note that she would only drink Gatorade and mellow yellow if it was not opened and she could see the nutrition content labile. She voiced that she was concerned people would be putting in something to increase her calories. Her mental status has been very variable. She did have one episode where she did soil herself. She has responded to herself in 3 different names throughout her stay. She has been verbally abusive to staff but never physically abusive. Her guardian does note that the patient will often try to see how far she can push people to get her way. She has been refusing all types of treatment including lab draws, etc. Call was placed today to [facility] one call and report given to Hospitalist Dr. Tripathi. Report was also given to Dr. Chavis, psychiatry. They ultimately agreed to transfer. Patient will be transferred to [facility] in [place] via ambulance for monitoring. Caro catheter remains in place. She'll be transferred today. - Patient Instructions Diet: Usual Diet as Tolerated, Fluid Restriction Fluid Restriction: 2000 mL - Discharge Plan *PRESCRIPTION DRUG MONITORING PROGRAM REVIEWED*: No *COPY OF PRESCRIPTION DRUG MONITORING REPORT IN PATIENT CHALO: No Home Medications: Home Meds Donepezil HCl 10 mg PO BEDTIME 02/07/18 [History] Lactobacillus Acidophilus [Acidophilus] 175 mg PO BID 02/07/18 [History] Levothyroxine [Synthroid] 88 mcg PO DAILY 02/07/18 [History] Pantoprazole [ProTONIX] 40 mg PO DAILY 02/07/18 [History] Memantine HCl [Namenda] 10 mg PO BID 02/11/18 [History] Chlorhexidine 4% 1 applic TOP DAILY 03/30/19 [History] Cholecalciferol (Vitamin D3) [Vitamin D3] 2,000 unit PO DAILY 03/30/19 [History] Dorzolamide HCl/Timolol Maleat [Dorzolamide-Timolol Eye Drops] 1 drop EYEBOTH BID 03/30/19 [History] Econazole Cream 1% 1 applic TOP DAILY PRN 03/30/19 [History] Fenofibrate Nanocrystallized [Fenofibrate] 145 mg PO DAILY 03/30/19 [History] Folic Acid 1 mg PO DAILY 03/30/19 [History] Hibclen Wash. 1 applic TOP MOWESA 03/30/19 [History] Miconazole 1 applic TOP DAILY PRN 03/30/19 [History] Polyethylene Glycol 3350 [MiraLAX] 17 gm PO BID PRN 03/30/19 [History] Pyridoxine HCl (Vitamin B6) [Vitamin B-6] 50 mg PO DAILY 03/30/19 [History] Tacrolimus Anhydrous [Tacrolimus] 1 applic TOP BID 03/30/19 [History] cloZAPine [Clozapine] 200 mg PO DAILY 03/30/19 [History] cloZAPine [Clozapine] 300 mg PO BEDTIME 03/30/19 [History] clonazePAM [Klonopin] 1 mg PO BID 03/30/19 [History] guaiFENesin [Robafen] 10 ml PO TID PRN 03/30/19 [History] Multivitamin with Iron [Multivitamins with Iron] 1 tab PO DAILY 04/10/19 [ History] Ferrous Sulfate 324 mg PO Q48H tab.ec 04/17/19 [Rx] ARIPiprazole [Abilify] 20 mg PO BEDTIME 05/05/19 [History] Betamethasone Valerate 1 applic TP BID 05/05/19 [History] levOCARNitine [Levocarnitine] 990 mg PO BID 05/05/19 [History] Oxygen Therapy Mode: Room Air Patient Handouts: Heart Failure Forms: ED Department Discharge Referrals: Nikko Stevens MD [Primary Care Provider] - - Discharge Summary/Plan Comment DC Time >30 min.: Yes (60 minutes ) - General Info Date of Service: 05/08/19 Functional Status: Reports: Pain Controlled, Urinating (Caro in place.). Denies: Tolerating Diet (refusing to eat ), Ambulating, New Symptoms - Review of Systems General: Reports: No Symptoms. Denies: Fever HEENT: Reports: No Symptoms. Denies: Headaches Pulmonary: Reports: No Symptoms. Denies: Cough Cardiovascular: Reports: No Symptoms. Denies: Chest Pain Gastrointestinal: Reports: No Symptoms. Denies: Abdominal Pain, Diarrhea, Nausea, Vomiting Genitourinary: Reports: No Symptoms. Denies: Pain Musculoskeletal: Reports: No Symptoms Neurological: Reports: No Symptoms Psychiatric: Reports: Confusion, Mood Lability, Agitation (Verbal ), Hallucinations - Patient Data Vitals - Most Recent: Last Vital Signs Temp 97.3 F 05/08/19 08:25 Pulse 96 05/08/19 08:25 Resp 24 H 05/08/19 08:25 BP 102/60 05/08/19 08:25 Pulse Ox 95 05/08/19 08:25 Weight - Most Recent: 174 lb 9.6 oz I&O - Last 24 hours: Intake & Output 05/07/19 05/08/19 05/08/19 22:59 06:59 14:59 Intake Total 175 200 Output Total 200 375 Balance -25 -175 ARTUR Results - Last 24 hrs: Microbiology 05/05/19 09:58 Aerobic Blood Culture - Preliminary Blood - Venous Gram Positive Cocci In Clustrs Anaerobic Blood Culture - Final Med Orders - Current: Current Medications Acetaminophen (Tylenol) 650 mg PO Q4H PRN PRN Reason: Pain (Mild 1-3)/fever Albuterol/Ipratropium (Duoneb 3.0-0.5 Mg/3 Ml) 3 ml NEB Q4H PRN PRN Reason: Shortness Of Breath/wheezing Aripiprazole (Abilify) 20 mg PO BEDTIME [facility] Last Admin: 05/07/19 21:13 Dose: 20 mg Betamethasone Valerate (Valisone 0.1% Crm) 0 gm TOP BID [facility] Last Admin: 05/08/19 08:29 Dose: 1 applic Cholecalciferol (Vitamin D3) 50 mcg PO DAILY [facility] Last Admin: 05/08/19 08:26 Dose: 50 mcg Clotrimazole (Lotrimin Af 1% Crm) 0 gm TOP DAILY PRN PRN Reason: RASH Clozapine (Clozapine) 200 mg PO DAILY [facility] Last Admin: 05/08/19 08:27 Dose: 200 mg Clozapine (Clozapine) 300 mg PO BEDTIME [facility] Last Admin: 05/07/19 21:13 Dose: 300 mg Dorzolamide/Timolol (Cosopt 2%-0.5% Ophth Soln) 0 ml EYEBOTH BID [facility] Last Admin: 05/08/19 08:26 Dose: 1 drop Enoxaparin Sodium (Lovenox) 40 mg SUBCUT Q24H [facility] Last Admin: 05/07/19 14:33 Dose: 40 mg Fenofibrate (Tricor) 145 mg PO DAILY [facility] Last Admin: 05/08/19 08:27 Dose: 145 mg Ferrous Sulfate (Ferrous Sulfate) 324 mg PO Q48H [facility] Last Admin: 05/07/19 10:40 Dose: 324 mg Folic Acid (Folic Acid) 1 mg PO DAILY [facility] Last Admin: 05/08/19 08:27 Dose: 1 mg Guaifenesin (Robitussin) 200 mg PO TID PRN PRN Reason: cough Levothyroxine Sodium (Synthroid) 88 mcg PO ACBREAKFAST [facility] Last Admin: 05/08/19 06:22 Dose: 88 mcg Lorazepam (Ativan) 1 mg IVPUSH Q6H PRN PRN Reason: Anxiety Last Admin: 05/06/19 21:20 Dose: 1 mg Miconazole (Micatin 2% Crm) 0 gm TOP DAILY PRN PRN Reason: Rash Midodrine (Midodrine) 5 mg PO TIDAC [facility] Last Admin: 05/08/19 12:04 Dose: 5 mg Multivitamins (Thera) 1 each PO DAILY [facility] Last Admin: 05/08/19 08:27 Dose: 1 each Ondansetron HCl (Zofran Odt) 4 mg PO Q6H PRN PRN Reason: nausea, able to take PO Ondansetron HCl (Zofran) 4 mg IV Q6H PRN PRN Reason: Nausea/Vomiting Oral Electrolytes (Thermotabs) 2 each PO TID [facility] Last Admin: 05/08/19 08:26 Dose: 2 each Chlorhexidine 4% 1 (Applic) 0 each TOP DAILY [facility] Last Admin: 05/08/19 10:45 Dose: Not Given Hibclen Wash. 1 (Applic) 0 each TOP MOWESA [facility] Last Admin: 05/07/19 09:33 Dose: Not Given Levocarnitine [ Levocarnitine] 990 Mg 0 each PO BID [facility] Last Admin: 05/08/19 10:46 Dose: Not Given Tacrolimus Anhydrous [Tacrolimus] 1 Applic 0 each TOP BID [facility] Last Admin: 05/08/19 10:46 Dose: Not Given Polyethylene Glycol (Miralax) 17 gm PO BID PRN PRN Reason: Constipation Pyridoxine HCl (Vitamin B6-Pyridoxine) 50 mg PO DAILY [facility] Last Admin: 05/08/19 08:27 Dose: 50 mg Saccharomyces Boulardii (Florastor) 250 mg PO BID [facility] Last Admin: 05/08/19 08:27 Dose: 250 mg Discontinued Medications Bumetanide (Bumex) 1 mg IVPUSH ONETIME ONE Stop: 05/05/19 11:40 Last Admin: 05/05/19 12:18 Dose: 1 mg Dextrose/Lactated Ringer's (Dextrose 5%-Lactated Ringers) 1,000 mls @ 999 mls/ hr IV ASDIRECTED [facility] Last Admin: 05/05/19 09:50 Dose: 999 mls/hr Potassium Chloride 10 meq/ (Premix) 100 mls @ 100 mls/hr IV Q1H NAEL Stop: 05/05/19 17:14 Last Admin: 05/05/19 18:54 Dose: 100 mls/hr Sodium Chloride (Normal Saline) 1,000 mls @ 75 mls/hr IV ASDIRECTED [facility] Last Admin: 05/05/19 23:24 Dose: 75 mls/hr Norepinephrine Bitartrate 4 mg (/ Dextrose/Water) 250 mls @ 7.5 mls/hr IV TITRATE NAEL; Protocol Last Titration: 05/06/19 22:55 Dose: 0 mcg/min, 0 mls/hr Magnesium Sulfate 4 gm/ Premix 50 mls @ 12.5 mls/hr IV ONETIME ONE Stop: 05/06/19 16:10 Last Admin: 05/06/19 13:19 Dose: 12.5 mls/hr Lorazepam (Ativan) Confirm Administered Dose 2 mg .ROUTE .STK-MED ONE Stop: 05/05/19 14:07 Last Admin: 05/05/19 14:42 Dose: Not Given Lorazepam (Ativan) 2 mg IVPUSH ONETIME ONE Stop: 05/05/19 14:40 Last Admin: 05/05/19 14:50 Dose: 2 mg Oral Electrolytes (Thermotabs) 1 each PO TID [facility] Last Admin: 05/06/19 21:13 Dose: 1 each - Exam Quality Assessment: Reports: Urine Catheter, DVT Prophylaxis, Skin Breakdown ( Groin). Denies: Supplemental Oxygen, Central Line/PICC General: Reports: Alert, Cooperative (at times ), No Acute Distress. Denies: Oriented HEENT: Reports: Pupils Equal, EOMI Neck: Reports: Supple, Trachea Midline Lungs: Reports: Clear to Auscultation, Normal Respiratory Effort Cardiovascular: Reports: Regular Rate, Regular Rhythm GI/Abdominal Exam: Soft, Non-Tender, No Distention, Abnormal Bowel Sounds ( hyperactive ) (Female) Exam: Deferred Rectal (Female) Exam: Deferred Extremities: Normal Inspection, Normal Range of Motion, Non-Tender, No Pedal Edema, Normal Capillary Refill Skin: Reports: Warm, Dry, Intact Psy/Mental Status: Reports: Alert, Labile Mood, Agitated (at times ), Hallucinations. Denies: Suicidal Ideation
[2019-05-08] MEDS ORDERED: Furosemide 20 MG/2 ML VIAL IVPUSH ONE (14:46)
[2019-05-08] MEDS: Enoxaparin 40 MG/0.4 ML Syringe SUBCUT SCH (14:59)
[2019-05-08 18:16] VITALS: BP 108/61; PULSE 97
== END 2019-05-08 17:22 | DRG 315 ==
LOC: JD.ED 09:29 → JD.ICU 15:06 → JD.MS 05-07 07:55
PROVIDERS: ADMIT Internal Medicine; ATTEND Internal Medicine
PROC: 05HM33Z Insertion of Infusion Device into Right Internal Jugular Vein, Percutaneous Approach (ICD-10-PCS; principal; 2019-05-05)
PROC: 3E043XZ Introduction of Vasopressor into Central Vein, Percutaneous Approach (ICD-10-PCS; 2019-05-05)
DX: I95.9 Hypotension, unspecified (principal); E87.1 Hypo-osmolality and hyponatremia; F20.89 Other schizophrenia; F03.91 Unspecified dementia, unspecified severity, with behavioral disturbance; N18.4 Chronic kidney disease, stage 4 (severe); I13.10 Hypertensive heart and chronic kidney disease without heart failure, with stage 1 through stage 4 chronic kidney disease, or unspecified chronic kidney disease; I13.0 Hypertensive heart and chronic kidney disease with heart failure and stage 1 through stage 4 chronic kidney disease, or unspecified chronic kidney disease; H40.9 Unspecified glaucoma; F03.90 Unspecified dementia, unspecified severity, without behavioral disturbance, psychotic disturbance, mood disturbance, and anxiety; E78.5 Hyperlipidemia, unspecified; D64.9 Anemia, unspecified; L89.322 Pressure ulcer of left buttock, stage 2; E86.9 Volume depletion, unspecified; E78.00 Pure hypercholesterolemia, unspecified; L40.9 Psoriasis, unspecified; I50.9 Heart failure, unspecified; E55.9 Vitamin D deficiency, unspecified; J44.9 Chronic obstructive pulmonary disease, unspecified; K21.9 Gastro-esophageal reflux disease without esophagitis; F41.9 Anxiety disorder, unspecified; F32.9 Major depressive disorder, single episode, unspecified; E03.9 Hypothyroidism, unspecified; E66.9 Obesity, unspecified; E56.9 Vitamin deficiency, unspecified; L40.8 Other psoriasis; E87.6 Hypokalemia; Z79.899 Other long term (current) drug therapy; Z88.8 Allergy status to other drugs, medicaments and biological substances; Z90.49 Acquired absence of other specified parts of digestive tract; Z86.14 Personal history of Methicillin resistant Staphylococcus aureus infection; Z79.890 Hormone replacement therapy
CPT/HCPCS: 36415; 36556; 71045; 80053; 80306; 81001; 83605; 83690; 83735; 83880; 83930; 84443; 84484; 85007; 85027; 85610; 85652; 85730; 86140; 87040; 93005; 96361; 96374; 96375; 99285; G0480; J2060; J3480 ×3; J3490; J7030; J7060; J7121; 51702; 80048; 82607; 82728; 82746; 84100; 84134; 87641; 93010; A9270-GY; J1650; J3475